=== PATIENT | male | born 1945 | race Caucasian/White ===

== ENCOUNTER 2016-12-16 15:00 | Inpatient (IN) | payer MEDICARE, OTHER ==
[2016-12-16] VITALS (9 sets, daily range): BP systolic 147–216; BP diastolic 63–92; PULSE 53–66; RESP 17–20; Ht 175.3 cm; Wt 89.0 kg
[~2016-12-16] VITALS: Ht 175.3 cm; Wt 89.0 kg
[~2016-12-16 15:00] MED LIST: AMIO200T; ASPI-535; CLON-379; CRES10; FENO145T25; FURO20TA3; GLIM4TAB55; HUMALOG; HUMULIN 70/30; IRBE1TAB; METF-164; POTA8TAB2; [UNRECOGNIZED DRUG - CODE]
[2016-12-16] MEDS ORDERED: MANNITOL 25% 50 ML INJ IV* ONE (17:30)
[2016-12-16 17:47] LABS: POTASSIUM 4.4 mmol/L (3.5-5.1)
[2016-12-16 17:50] LABS: CREATININE 5.91 mg/dl (0.61-1.24)
[2016-12-16 17:51] LABS: CALCIUM 8.6 mg/dl (8.4-10.2)
[2016-12-16] MEDS ORDERED: GLUCOSE GEL 15 GRAM TUBE PO PRN ×2 (19:00)
[2016-12-16] MEDS ORDERED: GLUCAGON 1 MG INJ IM PRN (19:00)
[2016-12-16] MEDS ORDERED: GLUCOSE GEL 15 GRAM TUBE BUCCAL PRN (19:00)
[2016-12-16] MEDS ORDERED: DEXTROSE 50% 50 ML SYRINGE IV PRN ×2 (19:00)
[2016-12-16 19:03] LABS: ADD SCAN DIFF NO; HAAIG REFLEX REFLEX FILED
[2016-12-16 19:53] LABS: INR 1.06; PROTIME 13.8 Sec (12.2-14.2); PT RATIO 1.1
[2016-12-16 19:54] LABS: PARTIAL THROMBOPLASTIN TIME 24.1 Sec (25.0-35.0)
[2016-12-16 20:11] LABS: HEPATITIS B CORE ANTIBODY NEGATIVE (NEGATIVE)
[2016-12-16] MEDS: INSULIN ASPART [NOVOLOG] 3 ML PEN SC SCH (20:35)
--- NOTE | 2016-12-16 20:43 | QN ---
Documentation Comment [id number] REINIER GIBSON MD December 16, 2016 20:43
[2016-12-16] MEDS ORDERED: hydrALAzine 20 MG INJ IV PRN (21:00)
[2016-12-16 21:38] LABS: BASOPHILS % 0.6 % (0.0-2.0); EOSINOPHILS # 0.2 10^3/ul (0.0-0.5); EOSINOPHILS % 2.7 % (0.0-7.0); HEMATOCRIT 23.7 % (42.0-52.0); HEMOGLOBIN 7.6 g/dl (14.0-18.0); LYMPHOCYTES # 1.6 10^3/ul (0.8-2.9); LYMPHOCYTES % 24.1 % (15.0-51.0); MEAN CORPUSCULAR HEMOGLOBIN 29.8 pg (29.0-33.0); MEAN CORPUSCULAR HGB CONC 32.1 g/dl (32.0-37.0); MEAN CORPUSCULAR VOLUME 92.9 fl (82.0-101.0); MEAN PLATELET VOLUME 12.3 fl (7.4-10.4); MONOCYTE # 0.4 10^3/ul (0.3-0.9); MONOCYTES % 6.2 % (0.0-11.0); NEUTROPHIL # 4.4 10^3/ul (1.6-7.5); NEUTROPHILS % 65.9 % (39.0-77.0); PLATELET COUNT 205 10^3/UL (140-415); RED BLOOD COUNT 2.55 10^6/ul (4.70-6.10); RED CELL DISTRIBUTION WIDTH 13.2 % (11.5-14.5); WHITE BLOOD COUNT 6.7 10^3/ul (4.8-10.8)
[2016-12-16] MEDS: ASPIRIN (EC) 81 MG TAB PO SCH (23:48)
[2016-12-16] MEDS: ATORVASTATIN 40 MG TAB PO SCH (23:48)
[2016-12-16] MEDS: FERROUS SULFATE (EC) 325 MG TAB PO SCH (23:48)
[2016-12-16] MEDS: NIFEdipine (XL) 60 MG TAB PO SCH (23:53)
[2016-12-17] VITALS (14 sets, daily range): BP systolic 104–190; BP diastolic 56–90; PULSE 58–68; RESP 18
[2016-12-17] MEDS: ACCU-CHEK XX SCH (02:00)
--- NOTE | 2016-12-17 04:58 | HP ---
DATE OF ADMISSION: 12/16/2016 HISTORY OF PRESENT ILLNESS: Mr. Martell is a 71-year-old male, who has a history of ESRD, history of hypertension, history of gastroenteritis, history of Campylobacter jejuni, history of ATN, history of CAD, history of CABG, history of diabetes mellitus, history of anemia, history of cardiac arrhythmia, AV fistula in the left upper extremity. He presented with uremic symptoms; weakness, dizziness, nausea, poor appetite, weight loss, and the fistula has also matured, and will be started on hemodialysis. PAST MEDICAL HISTORY: As mentioned above. Briefly, ESRD, hypertension, diabetes mellitus, AV fistula placement, history of coronary artery bypass graft , history of cardiac arrhythmia. ALLERGY HISTORY: NEGATIVE. FAMILY HISTORY: Negative. SOCIAL HISTORY: Negative at this point. MEDICATION HISTORY: 1. bp meds 2. Amiodarone. 3. Aspirin. 4. Clonidine. 5. Fenofibrate. 6. Lasix. 7. Glipizide. 8. Avalide. 9. Metformin; the patient does not take metformin. 10. bicitra. 11. Humalog. REVIEW OF SYSTEMS: HEENT: Unremarkable. RESPIRATORY: zuniga shortness of breath, + dyspnea with exertion. ABDOMEN: Unremarkable, except nausea. EXTREMITIES: edema hx. CENTRAL NERVOUS SYSTEM: Unremarkable. PHYSICAL EXAMINATION: GENERAL: The patient is awake, alert. VITAL SIGNS: Stable. HEAD: Atraumatic, normocephalic. Pupils equal, reactive to light. NECK: Supple, no JVD. LUNGS: Clear. CARDIOVASCULAR: S1, S2 normal. sm+. ABDOMEN: Soft. Bowel sounds positive. EXTREMITIES: There is no cyanosis, clubbing, edema. CENTRAL NERVOUS SYSTEM: The patient is awake, alert, with no focal deficit. LABORATORY DATA: Sodium 139, potassium 4.4, BUN of 70, creatinine . The patient's outside creatinine is 6.7. IMPRESSION: 1. End-stage renal disease V. 2. Uremic symptoms. 3. Weight loss. 4. Hypertension. 5. Diabetes mellitus. 6. The patient has a history of anemia. 7. Atherosclerotic heart disease. 8. Dyslipidemia. 9. History of cardiac arrhythmia. 4. History of coronary artery bypass graft. PLAN: To continue a renal diet, hemodialysis with mannitol. Check laboratory data and hepatitis panel. Orders were done. Dictated By: REINIER GIBSON MD BS/NTS Conf#: [id number] [facility]#: [id number] MTDD
[2016-12-17 05:35] LABS: POTASSIUM 3.7 mmol/L (3.5-5.1)
[2016-12-17 05:37] LABS: CREATININE 4.73 mg/dl (0.61-1.24)
[2016-12-17 05:38] LABS: CALCIUM 8.8 mg/dl (8.4-10.2)
[2016-12-17] MEDS ORDERED: GLIMEPIRIDE 4 MG TAB PO SCH (07:30)
[2016-12-17] MEDS: INSULIN ASPART [NOVOLOG] 3 ML PEN SC SCH ×4 (08:00→21:00)
[2016-12-17] MEDS: FENOFIBRATE 145 MG TAB PO SCH (08:51)
[2016-12-17] MEDS: FERROUS SULFATE (EC) 325 MG TAB PO SCH ×2 (08:52→20:50)
[2016-12-17] MEDS: CHOLECALCIFEROL 1,000 UNIT TAB PO SCH (08:52)
[2016-12-17] MEDS: ASPIRIN (EC) 81 MG TAB PO SCH ×2 (08:52→20:50)
[2016-12-17] MEDS: HYDROCHLOROTHIAZIDE 12.5 MG CAP PO SCH (08:52)
--- NOTE | 2016-12-17 08:56 | RADRPT ---
PROCEDURE: XR Chest. CLINICAL INDICATION: Pain TECHNIQUE: An AP view of the chest was obtained. COMPARISON: Chest x-ray dated 08/05/2009 FINDINGS: Lung volumes are low. There is prominence of the interstitial markings. No pleural effusion or pn eumothorax is seen. The cardiomediastinal silhouette is severely enlarged . Calcifications are seen within the aortic arch. There are post cardiac surgery changes with sternotomy wires and mediastina l clips. The osseous structures demonstrate senescent changes. IMPRESSION: 1. Mild prominence of the interstitial markings, may reflect mild underlying interstitial edema or chronic lung changes. No significant interval change. 2. Severe cardiomegaly and aortic atherosclerosis. RPTAT: HH .Rachelle Bradshaw MD, MD Date Time Electronically viewed and signed by .Rachelle Bradshaw MD, on 12/17/2016 08:56 .G/
[2016-12-17] MEDS ORDERED: MANNITOL 25% 50 ML INJ IV* ONE (09:00)
[2016-12-17] MEDS: LOSARTAN 50 MG TAB PO SCH (09:50)
[2016-12-17] MEDS: AMIODARONE 200 MG TAB PO SCH (09:51)
[2016-12-17] MEDS: NIFEdipine (XL) 60 MG TAB PO SCH ×2 (09:51→20:50)
[2016-12-17] MEDS: MUPIROCIN 2% 15 GM CR TOP SCH (12:11)
--- NOTE | 2016-12-17 17:51 | PN ---
Date/Time of Note Date/Time of Note DATE: 12/17/16 TIME: 17:50 Assessment/Plan VTE Prophylaxis VTE Prophylaxis Intervention: other Lines/Catheters [facility] Saline Lock Urinary Cath still in place: No Assessment/Plan Chief Complaint/Hosp Course IMPRESSION: 1. End-stage renal disease V. 2. Uremic symptoms. 3. Weight loss. 4. Hypertension. 5. Diabetes mellitus. 6. The patient has a history of anemia. 7. Atherosclerotic heart disease. 8. Dyslipidemia. 9. History of cardiac arrhythmia. 4. History of coronary artery bypass graft. plan hd Problems: Subjective 24 Hr Interval Summary Cardiovascular: no complaints Gastrointestinal: no complaints Genitourinary: no complaints Exam/Review of Systems Vital Signs Vitals Vital Signs Date Time Temp Pulse Resp B/P Pulse Ox O2 Delivery O2 Flow Rate FiO2 12/17/16 14:56 148/65 12/17/16 11:15 61 15 12/17/16 08:14 97.9 99 12/16/16 17:35 Room Air Intake and Output 12/16/16 12/16/16 12/17/16 15:00 23:00 07:00 Intake Total 500 ml 950 ml Output Total 500 ml 700 ml Balance 0 ml 250 ml Exam Neck: supple Respiratory: clear to auscultation Cardiovascular: regular rate and rhythm Gastrointestinal: soft Musculoskeletal: nl extremities to inspection Extremities: normal pulses Results Result Diagram: 12/16/16 1720 12/17/16 0445 Results 24 hrs Laboratory Tests Test 12/16/16 19:10 12/16/16 20:34 12/17/16 04:45 12/17/16 07:41 Prothrombin Time 13.8 Prothrombin Time Ratio 1.1 INR International Normalized Ratio 1.06 Activated Partial Thromboplast Time 24.1 L Bedside Glucose 113 110 Sodium Level 139 Potassium Level 3.7 Chloride Level 102 Carbon Dioxide Level 28 Anion Gap 13 Blood Urea Nitrogen 51 H Creatinine 4.73 #H Glucose Level 107 Calcium Level 8.8 Test 12/17/16 11:41 12/17/16 17:16 Bedside Glucose 170 173 Medications Medications Current Medications Diagnostic Test (Pha) (Accu-Chek) 1 ea 02 XX ; Start 12/17/16 at 02:00 Miscellaneous Information 1 ea NOTE XX ; Start 12/16/16 at 19:00 Glucose (Glutose) 15 gm Q15M PRN PO DECREASED GLUCOSE; Start 12/16/16 at 19:00 Glucose (Glutose) 22.5 gm Q15M PRN PO DECREASED GLUCOSE; Start 12/16/16 at 19:00 Dextrose (D50w Syringe) 25 ml Q15M PRN IV DECREASED GLUCOSE; Start 12/16/16 at 19:00 Dextrose (D50w Syringe) 50 ml Q15M PRN IV DECREASED GLUCOSE; Start 12/16/16 at 19:00 Glucagon (Glucagen) 1 mg Q15M PRN IM DECREASED GLUCOSE; Start 12/16/16 at 19:00 Glucose (Glutose) 15 gm Q15M PRN BUCCAL DECREASED GLUCOSE; Start 12/16/16 at 19: 00 Hydralazine HCl (Apresoline) 10 mg Q6H PRN IV ELEVATED BLOOD PRESSURE Last administered on 12/16/16 21:26; Admin Dose 10 MG; Start 12/16/16 at 21:00 Fenofibrate (Tricor) 145 mg DAILY PO Last administered on 12/17/16 08:51; Admin Dose 145 MG; Start 12/17/16 at 09:00 Ferrous Sulfate (Ferrous Sulfate (Ec)) 325 mg BID PO Last administered on 08:52; Admin Dose 325 MG; Start 12/16/16 at 23:00 Cholecalciferol (Vitamin D) 1,000 unit DAILY PO Last administered on 12/17/16 08:52; Admin Dose 1,000 UNIT; Start 12/17/16 at 09:00 Losartan Potassium (Cozaar) 100 mg DAILY PO Last administered on 12/17/16 09:50 ; Admin Dose 100 MG; Start 12/17/16 at 09:00 Doxazosin Mesylate (Cardura) 4 mg DAILY@21 PO ; Start 12/17/16 at 21:00 Hydrochlorothiazide (Hydrochlorothiazide) 12.5 mg DAILY PO Last administered on 12/17/16 08:52; Admin Dose 12.5 MG; Start 12/17/16 at 09:00 Nifedipine (Procardia Xl) 60 mg BID PO Last administered on 12/17/16 09:51; Admin Dose 60 MG; Start 12/16/16 at 23:30 Carvedilol (Coreg) 12.5 mg BID PO Last administered on 12/17/16 09:50; Admin Dose 12.5 MG; Start 12/16/16 at 23:00 Amiodarone HCl (Cordarone) 200 mg DAILY PO Last administered on 12/17/16 09:51 ; Admin Dose 200 MG; Start 12/17/16 at 09:00 Clonidine (Catapres) 0.2 mg TID PO Last administered on 12/17/16 08:53; Admin Dose 0.2 MG; Start 12/16/16 at 23:00 Aspirin (Halfprin) 81 mg BID PO Last administered on 12/17/16 08:52; Admin Dose 81 MG; Start 12/16/16 at 23:00 Atorvastatin Calcium (Lipitor) 40 mg DAILY@21 PO Last administered on 12/16/16 23:48; Admin Dose 40 MG; Start 12/16/16 at 23:30 Insulin Glargine (Lantus) 20 unit DAILY@20 SC ; Start 12/17/16 at 20:00 Modafinil (Provigil) 200 mg DAILY PO ; Start 12/18/16 at 09:00 Mupirocin (Bactroban) 1 applic DAILY TOP Last administered on 12/17/16 12:11; Admin Dose 1 APPLIC; Start 12/17/16 at 09:00 REINIER GIBSON MD December 17, 2016 17:51
[2016-12-17] MEDS ORDERED: EPOETIN 4000 UNITS/1 ML INJ (ESRD) SC SCH (18:00)
[2016-12-17] MEDS ORDERED: INSULIN GLARGINE [LANtus] 3 ML PEN SC SCH (20:00)
[2016-12-17] MEDS: ATORVASTATIN 40 MG TAB PO SCH (20:50)
[2016-12-17] MEDS ORDERED: DOXAZOSIN 4 MG TAB PO SCH (21:00)
[2016-12-18] VITALS (8 sets, daily range): BP systolic 121–169; BP diastolic 50–74; PULSE 60–76; RESP 17
[2016-12-18] MEDS: ACCU-CHEK XX SCH (02:00)
[2016-12-18] MEDS: FERROUS SULFATE (EC) 325 MG TAB PO SCH (08:16)
[2016-12-18] MEDS: ASPIRIN (EC) 81 MG TAB PO SCH (08:16)
[2016-12-18] MEDS: CHOLECALCIFEROL 1,000 UNIT TAB PO SCH (08:16)
[2016-12-18] MEDS: INSULIN ASPART [NOVOLOG] 3 ML PEN SC SCH ×3 (08:19→16:34)
[2016-12-18] MEDS: FENOFIBRATE 145 MG TAB PO SCH (08:19)
[2016-12-18] MEDS: AMIODARONE 200 MG TAB PO SCH (09:00)
[2016-12-18] MEDS: MUPIROCIN 2% 15 GM CR TOP SCH (09:00)
[2016-12-18] MEDS: HYDROCHLOROTHIAZIDE 12.5 MG CAP PO SCH (09:00)
[2016-12-18] MEDS: NIFEdipine (XL) 60 MG TAB PO SCH (09:00)
[2016-12-18] MEDS ORDERED: MODAFINIL 200 MG TAB PO SCH (09:00)
[2016-12-18] MEDS: LOSARTAN 50 MG TAB PO SCH (09:00)
--- NOTE | 2016-12-18 11:53 | PN ---
Date/Time of Note Date/Time of Note DATE: 12/18/16 TIME: 11:51 Assessment/Plan VTE Prophylaxis VTE Prophylaxis Intervention: ambulation Lines/Catheters [facility] Saline Lock Urinary Cath still in place: No Assessment/Plan Chief Complaint/Hosp Course 1. End-stage renal disease V, HD dependent 2. Uremic symptoms. 3. Weight loss. 4. Hypertension, controlled. 5. Diabetes mellitus. 6. The patient has a history of anemia. 7. Atherosclerotic heart disease. 8. Dyslipidemia. 9. History of cardiac arrhythmia. 4. History of coronary artery bypass graft. Problems: Assessment/Plan 2. HD 2. Optimization kidney function Subjective 24 Hr Interval Summary Constitutional: no complaints Exam/Review of Systems Vital Signs Vitals Vital Signs Date Time Temp Pulse Resp B/P Pulse Ox O2 Delivery O2 Flow Rate FiO2 12/18/16 07:56 98.1 59 17 169/74 99 12/16/16 17:35 Room Air Intake and Output 12/17/16 12/17/16 12/18/16 15:00 23:00 07:00 Intake Total 1200 ml 1000 ml 580 ml Output Total 1200 ml 900 ml Balance 0 ml 100 ml 580 ml Exam Constitutional: alert, oriented Psych: no complaints Respiratory: clear to auscultation Cardiovascular: regular rate and rhythm Gastrointestinal: soft Genitourinary - Male: nl penis Results Result Diagram: 12/16/16 1720 12/17/16 0445 Results 24 hrs Laboratory Tests Test 12/17/16 17:16 12/17/16 20:48 12/18/16 08:13 12/18/16 11:40 Bedside Glucose 173 163 144 139 Medications Medications Current Medications Diagnostic Test (Pha) (Accu-Chek) 1 ea 02 XX ; Start 12/17/16 at 02:00 Miscellaneous Information 1 ea NOTE XX ; Start 12/16/16 at 19:00 Glucose (Glutose) 15 gm Q15M PRN PO DECREASED GLUCOSE; Start 12/16/16 at 19:00 Glucose (Glutose) 22.5 gm Q15M PRN PO DECREASED GLUCOSE; Start 12/16/16 at 19:00 Dextrose (D50w Syringe) 25 ml Q15M PRN IV DECREASED GLUCOSE; Start 12/16/16 at 19:00 Dextrose (D50w Syringe) 50 ml Q15M PRN IV DECREASED GLUCOSE; Start 12/16/16 at 19:00 Glucagon (Glucagen) 1 mg Q15M PRN IM DECREASED GLUCOSE; Start 12/16/16 at 19:00 Glucose (Glutose) 15 gm Q15M PRN BUCCAL DECREASED GLUCOSE; Start 12/16/16 at 19: 00 Hydralazine HCl (Apresoline) 10 mg Q6H PRN IV ELEVATED BLOOD PRESSURE Last administered on 12/16/16 21:26; Admin Dose 10 MG; Start 12/16/16 at 21:00 Fenofibrate (Tricor) 145 mg DAILY PO Last administered on 12/18/16 08:19; Admin Dose 145 MG; Start 12/17/16 at 09:00 Ferrous Sulfate (Ferrous Sulfate (Ec)) 325 mg BID PO Last administered on 08:16; Admin Dose 325 MG; Start 12/16/16 at 23:00 Cholecalciferol (Vitamin D) 1,000 unit DAILY PO Last administered on 12/18/16 08:16; Admin Dose 1,000 UNIT; Start 12/17/16 at 09:00 Losartan Potassium (Cozaar) 100 mg DAILY PO Last administered on 12/17/16 09:50 ; Admin Dose 100 MG; Start 12/17/16 at 09:00 Doxazosin Mesylate (Cardura) 4 mg DAILY@21 PO Last administered on 12/17/16 20: 56; Admin Dose 4 MG; Start 12/17/16 at 21:00 Hydrochlorothiazide (Hydrochlorothiazide) 12.5 mg DAILY PO Last administered on 12/17/16 08:52; Admin Dose 12.5 MG; Start 12/17/16 at 09:00 Nifedipine (Procardia Xl) 60 mg BID PO Last administered on 12/17/16 20:50; Admin Dose 60 MG; Start 12/16/16 at 23:30 Carvedilol (Coreg) 12.5 mg BID PO Last administered on 12/17/16 20:51; Admin Dose 12.5 MG; Start 12/16/16 at 23:00 Amiodarone HCl (Cordarone) 200 mg DAILY PO Last administered on 12/17/16 09:51 ; Admin Dose 200 MG; Start 12/17/16 at 09:00 Clonidine (Catapres) 0.2 mg TID PO Last administered on 12/18/16 08:16; Admin Dose 0.2 MG; Start 12/16/16 at 23:00 Aspirin (Halfprin) 81 mg BID PO Last administered on 12/18/16 08:16; Admin Dose 81 MG; Start 12/16/16 at 23:00 Atorvastatin Calcium (Lipitor) 40 mg DAILY@21 PO Last administered on 12/17/16 20:50; Admin Dose 40 MG; Start 12/16/16 at 23:30 Insulin Glargine (Lantus) 20 unit DAILY@20 SC Last administered on 12/17/16 20: 54; Admin Dose 20 UNIT; Start 12/17/16 at 20:00 Modafinil (Provigil) 200 mg DAILY PO ; Start 12/18/16 at 09:00 Mupirocin (Bactroban) 1 applic DAILY TOP Last administered on 12/17/16 12:11; Admin Dose 1 APPLIC; Start 12/17/16 at 09:00 IVONNE BHAT December 18, 2016 11:53
--- NOTE | 2016-12-18 14:55 | PDOCDIS ---
Discharge Instructions CONDITION Patient Condition: Stable HOME CARE INSTRUCTIONS: Special Diet: 1800 2gm Na,RENAL ACTIVITY: Activity Restrictions: Slowly Increase Activity FOLLOW UP/APPOINTMENTS Appointments F/U DR GIBSON 2 WKS SEE PCP 2 WK PT TO GO TO [facility] NEXT WK ON /REINIER LOVE MD December 18, 2016 14:55
[2016-12-18] MEDS ORDERED: NIFE60TA7 PO (14:59)
[2016-12-18] MEDS ORDERED: CARV12.579 PO (14:59)
[2016-12-18] MEDS ORDERED: DOXA4TAB2 PO (14:59)
[2016-12-18] MEDS ORDERED: ATOR40TA68 PO (14:59)
[2016-12-18] MEDS ORDERED: CHOL100062 PO (14:59)
[2016-12-18] MEDS ORDERED: CLON0.2T12 PO (14:59)
--- NOTE | 2016-12-20 16:30 | QN ---
Documentation Comment [id number] REINIER GIBSON MD December 20, 2016 16:30
--- NOTE | 2016-12-20 19:29 | DS ---
DATE OF ADMISSION: 12/16/2016 DATE OF DISCHARGE: 12/18/2016 HOSPITAL COURSE: The patient was admitted with uremic symptoms, has ESRD stage V, hypertension, diabetes mellitus, AV fistula left upper extremity. Hemodialysis was started during this hospitalization. The patient underwent daily dialysis for 3 days. Also hepatitis panel was negative. The patient was accepted to [facility] [place] for Wednesday, , Wednesday. DISCHARGE DIAGNOSES: Include: 1. The patient has endstage renal disease, uremic symptoms. 2. Weight loss. 3. Hypertension. 4. Diabetes mellitus. 5. History of anemia. 6. Atherosclerotic heart disease. 7. Dyslipidemia. 8. History of cardiac arrhythmia. 9. History of coronary artery bypass graft. 10. Left upper extremity arteriovenous fistula placement in the past. DISCHARGE MEDICATIONS: 1. The patient to continue home medication. 2. The patient to continue on Lipitor. 3. Coreg. 4. Vitamin D. 5. Clonidine. 6. Doxazosin. 7. Nifedipine. 8. BP MEDS 9. Nephro-Alex. 10. Epogen as an outpatient. 11. Sliding scale. DISCHARGE CONDITION: The patient is stable at the time of discharge. Dictated By: REINIER GIBSON MD BS/NTS Conf#: [id number] DID#: [id number] MTDJeffry
== END 2016-12-18 18:48 | disposition home or self-care (01) | DRG 682 ==
LOC: PP2 16:51
PROVIDERS: ADMIT Internal Medicine Nephrology; ATTEND Internal Medicine Nephrology
PROC: 5A1D00Z (ICD-10-PCS; principal; 2016-12-16)
DX: I12.0 Hypertensive chronic kidney disease with stage 5 chronic kidney disease or end stage renal disease (principal); N18.6 End stage renal disease; E11.22 Type 2 diabetes mellitus with diabetic chronic kidney disease; D64.9 Anemia, unspecified; I25.10 Atherosclerotic heart disease of native coronary artery without angina pectoris; N23 Unspecified renal colic; E78.5 Hyperlipidemia, unspecified; Z79.4 Long term (current) use of insulin; Z79.82 Long term (current) use of aspirin; Z99.2 Dependence on renal dialysis; Z95.1 Presence of aortocoronary bypass graft
CPT/HCPCS: 71010; 80048; 82962; 85025; 85610; 85730; 86704; 86709; 86803; 87340; 90935; J0360; J0886; J1815; J2150

== ENCOUNTER 2017-01-01 14:30 | Observation (INO) | payer MEDICARE, OTHER ==
[~2017-01-01] VITALS: Ht 172.7 cm; Wt 90.0 kg
[~2017-01-01 14:30] MED LIST changes: +ATOR40TA68 PO; +CARV12.579 PO; +CHOL100062 PO; +CLON0.2T12 PO; +DOXA4TAB2 PO; -FENO145T25; +FENO145T25 PO; -GLIM4TAB55; +GLIM4TAB55 PO; -METF-164; +NIFE60TA7 PO; -POTA8TAB2
[2017-01-01] MEDS ORDERED: FOLI-49 PO (15:47)
[2017-01-01] MEDS ORDERED: LANT3I SC (15:48)
[2017-01-01] MEDS ORDERED: CITR473S3 PO (15:49)
[2017-01-01] MEDS ORDERED: FER325 PO (15:49)
[2017-01-01] MEDS ORDERED: IBUP800T25 PO (15:51)
[2017-01-01] MEDS ORDERED: [UNRECOGNIZED DRUG - CODE] PO (15:52)
[2017-01-01] MEDS ORDERED: INSU100V3 IJ (15:55)
[2017-01-01 15:59] LABS: ADD SCAN DIFF NO
[2017-01-01 16:02] LABS: ABNORMAL IP MESSAGE 1; HEMATOCRIT 21.4 % (42.0-52.0); MEAN CORPUSCULAR HGB CONC 31.3 g/dl (32.0-37.0); MEAN PLATELET VOLUME 11.3 fl (7.4-10.4); PLATELET COUNT 211 10^3/UL (140-415); RED BLOOD COUNT 2.23 10^6/ul (4.70-6.10); RED CELL DISTRIBUTION WIDTH 14.5 % (11.5-14.5); WHITE BLOOD COUNT 8.2 10^3/ul (4.8-10.8)
[2017-01-01 16:09] LABS: HEMOGLOBIN 6.7 g/dl (14.0-18.0)
--- NOTE | 2017-01-01 16:19 | ERA ---
ER Documentation Chief Complaint Date/Time DATE: 01/01/17 TIME: 16:13 Chief Complaint LAB WORK POSSIBLE LOW H/H & TEMP DIALYSIS CATHETER PLACEMENT HPI 71-year-old male history of end-stage renal disease on dialysis Wednesday who presents for multiple issues. The first is that he had routine blood work that showed a hemoglobin of 6.2. The patient does not describe any shortness of breath weakness or malaise, no hematemesis or melena. The second is that the patient's left upper extremity AV fistula has significant bruising in the dialysis center is concerned that they cannot use the fistula any further. He was sent for admission to have a permacath placement by vascular surgery or interventional radiology. The patient otherwise has no complaints. ROS All systems reviewed and are negative except as per history of present illness. Medications Home Meds Active Scripts Cholecalciferol* (Vitamin D3*) 1,000 Unit Tablet, 1000 UNIT PO DAILY for 28 Days , TAB Prov:DONNY GIBSON MD 12/18/16 Nifedipine (Afeditab CR) 60 Mg Tablet.sa, 60 MG PO BID for 28 Days Prov:DONNY GIBSON MD 12/18/16 Doxazosin Mesylate* (Cardura*) 4 Mg Tablet, 4 MG PO DAILY@21 for 10 Days, TAB Prov:DONNY GIBSON MD 12/18/16 Clonidine Hcl* (Catapres*) 0.2 Mg Tablet, 0.2 MG PO TID for 28 Days, TAB Prov:DONNY GIBSON MD 12/18/16 Carvedilol* (Carvedilol*) 12.5 Mg Tablet, 12.5 MG PO BID for 14 Days, TAB Prov:DONNY GIBSON MD 12/18/16 Atorvastatin* (Atorvastatin*) 40 Mg Tablet, 40 MG PO DAILY@21 for 14 Days, TAB Prov:DONNY GIBSON MD 12/18/16 Reported Medications Insulin Regular, Human (Humulin R) 100 Unit/1 Ml Vial, 0 IJ SLIDING SCALES, VIAL 01/01/17 Folic Acid/Vitamin B Comp W-C (Full Spectrum B With Vit C Tab) 0.8 Mg Tablet, 0.8 MG PO DAILY, TAB 01/01/17 Ibuprofen* (Ibuprofen*) 800 Mg Tab, 800 MG PO BID Y for PAIN, TAB 01/01/17 Ferrous Sulfate* (Ferrous Sulfate*) 325 Mg Tabec, 325 MG PO BID, TAB 01/01/17 Citric Acid/Sodium Citrate (Cytra-2 Oral Solution) 473 Ml Solution, 473 ML PO DAILY 01/01/17 Insulin Glargine* (Lantus*) 100 Unit/Ml Soln, 20 UNIT SC QHS, #1 VIAL 01/01/17 Folic Acid* (Folic Acid*) 1 Mg Tablet, 1 MG PO DAILY, TAB 01/01/17 Glimepiride* (Amaryl*) 4 Mg Tablet, 4 MG PO BID 08/05/09 Fenofibrate Nanocrystallized* (Tricor*) 145 Mg Tablet, 145 MG PO DAILY 08/05/09 Discontinued Reported Medications [Humulin 70/30] No Conflict Check 08/05/09 [Humalog] No Conflict Check 08/05/09 Aspirin Ec (Aspir 81) 81 Mg Tablet. 08/05/09 Clonidine Hcl* (Clonidine Hcl*) 0.1 Mg Tab 08/05/09 Amiodarone Hcl* (Amiodarone Hcl*) 200 Mg Tablet 08/05/09 Irbesartan/Hydrochlorothiazide (Avalide) 1 Tab Tablet 08/05/09 Rosuvastatin Calcium* (Crestor*) 10 Mg Tablet 08/05/09 Aliskiren Hemifumarate* (Tekturna*) 300 Mg Tablet 08/05/09 Furosemide* (Furosemide*) 20 Mg Tablet 08/05/09 Allergies Allergies: Coded Allergies: No Known Allergy (Verified , 01/01/17) PMhx/Soc History of Surgery: Yes (OPEN HEART SURGERY 1998) Anesthesia Reaction: No Hx Neurological Disorder: No Hx Respiratory Disorders: No Hx Cardiac Disorders: Yes (CAD ) Hx Psychiatric Problems: No Hx Miscellaneous Medical Probl: No Hx Alcohol Use: Yes Hx Substance Use: No Hx Tobacco Use: Yes Smoking Status: Unknown if ever smoked FmHx Family History: No diabetes Physical Exam Vitals Vital Signs Date Time Temp Pulse Resp B/P Pulse Ox O2 Delivery O2 Flow Rate FiO2 01/01/17 14:56 99.6 64 20 187/72 99 Physical Exam General: Well developed, well nourished, no acute distress Head: Normocephalic, atraumatic. Eyes: Pupils equally reactive, EOM intact ENT: Moist mucous membranes Neck: Supple, no lymphadenopathy Respiratory: Lungs clear bilaterally, no distress Cardiovascular: RRR, no murmurs, rubs, or gallops Abdominal: Soft, non-tender, non-distended, no peritoneal signs : Deferred MSK: No edema, no unilateral swelling, 5/5 strength, left upper extremity AV fistula with good bruit and thrill Neurologic: Alert and oriented, moving all extremities, normal speech, no focal weakness, no cerebellar signs Skin: Multiple ecchymoses noted to the left upper extremity AV fistula Psych: Normal mood Result Diagram: 01/01/17 1555 01/01/17 1555 Results 24 hrs Laboratory Tests Test 01/01/17 15:55 White Blood Count 8.210^3/ul Red Blood Count 2.2310^6/ul Hemoglobin 6.7g/dl Hematocrit 21.4% Mean Corpuscular Volume 96.0fl Mean Corpuscular Hemoglobin 30.0pg Mean Corpuscular Hemoglobin Concent 31.3g/dl Red Cell Distribution Width 14.5% Platelet Count 19557^3/UL Mean Platelet Volume 11.3fl Prothrombin Time 13.2Sec Prothrombin Time Ratio 1.0 INR International Normalized Ratio 1.00 Activated Partial Thromboplast Time 24.4Sec Sodium Level 137mmol/L Potassium Level 4.3mmol/L Chloride Level 102mmol/L Carbon Dioxide Level 24mmol/L Anion Gap 15 Blood Urea Nitrogen 32mg/dl Creatinine 4.06mg/dl Glucose Level 181mg/dl Calcium Level 8.5mg/dl Current Medications Medications (Trade) Dose Ordered Sig/Rhea Route PRN Reason Start Time Stop Time Status Last Admin Dose Admin Sodium Chloride (NS) 250 ml @ 0 mls/hr Q0M ONCE IV 01/01/17 16:30 01/01/17 16:31 DC Ondansetron HCl (Zofran Inj) 4 mg BRIDGE ORDER PRN IV NAUSEA AND/OR VOMITING 01/01/17 16:30 01/02/17 16:29 Acetaminophen (Tylenol Tab) 650 mg ER BRIDGE PRN PO MILD PAIN/FEVER 01/01/17 16:30 01/02/17 16:29 Procedures/MDM EKG, MONITORS, & DIAGNOSTIC IMAGING: EKG: I reviewed and interpreted a 12-lead EKG. Rhythm: Normal sinus rhythm Ectopy: None Intervals: No abnormalities ST segments: No elevations or depressions T waves: No contiguous inversions LAB INTERPRETATION: Hemoglobin of 6.7, no hyperkalemia MEDICAL DECISION MAKING: The patient has evidence of anemia likely secondary to end-stage renal disease. The patient will benefit from transfusion as the benefits outweigh the risks. I discussed the risks, benefits, alternatives with the patient and family member. The patient is agreeable and will have a blood transfusion. 2 units of packed red blood cells have been written for. The patient will be admitted for management of anemia. He will also require a PermCath placement this can be done on a nonemergent basis as the patient has no evidence of volume overload or hyperkalemia and had dialysis yesterday. ER COURSE: Patient was typed and crossmatched for 2 units of packed red blood cells. Consent was signed and placed in the chart. I kept the patient and/or family informed of laboratory and diagnostic imaging results throughout the emergency room course. DISPOSITION PLAN: Medical surgical admission for management of symptomatic anemia CONSULTATION: Accepting care team and consultations: I discussed the current laboratory data, diagnostic imaging and emergency care provided. Admitting team: Dr. Donny Gibson Admitting team indication: Insurance directed Consulting services: Vascular surgeon Dr. Walker has been paged Departure Diagnosis: Primary Impression: Anemia Qualified Code: D64.9 - Anemia, unspecified type Additional Impressions: End stage renal disease on dialysis Dialysis AV fistula malfunction Qualified Code: T82.590A - Dialysis AV fistula malfunction, initial encounter Condition: Stable MARIIA GRECO MD January 01, 2017 16:19
[2017-01-01 16:23] LABS: PARTIAL THROMBOPLASTIN TIME 24.4 Sec (25.0-35.0); PROTIME 13.2 Sec (12.2-14.2)
[2017-01-01 16:25] LABS: POTASSIUM 4.3 mmol/L (3.5-5.1)
[2017-01-01 16:26] LABS: CALCIUM 8.5 mg/dl (8.4-10.2); CREATININE 4.06 mg/dl (0.61-1.24)
[2017-01-01] MEDS ORDERED: ONDANSETRON 4 MG INJ IV PRN (16:30)
[2017-01-01] MEDS ORDERED: SOD CHLORIDE 0.9% 250 ML IV ONE (16:30)
[2017-01-01] MEDS ORDERED: ACETAMINOPHEN 325 MG TAB PO PRN (16:30)
[2017-01-01 17:51] LABS: EOSINOPHILS # 0.2 10^3/ul (0.0-0.5); LYMPHOCYTES # 2.3 10^3/ul (0.8-2.9); MONOCYTE # 0.2 10^3/ul (0.3-0.9); NEUTROPHIL # 5.5 10^3/ul (1.6-7.5)
[2017-01-01 18:03] VITALS: Ht 172.7 cm; Wt 90.0 kg
--- NOTE | 2017-01-01 18:09 | QN ---
Documentation Comment [id number] REINIER GIBSON MD January 01, 2017 18:09
[2017-01-01] MEDS ORDERED: GLUCAGON 1 MG INJ IM PRN (18:30)
[2017-01-01] MEDS ORDERED: GLUCOSE GEL 15 GRAM TUBE PO PRN ×2 (18:30)
[2017-01-01] MEDS ORDERED: DEXTROSE 50% 50 ML SYRINGE IV PRN ×2 (18:30)
[2017-01-01] MEDS ORDERED: GLUCOSE GEL 15 GRAM TUBE BUCCAL PRN (18:30)
[2017-01-01 18:36] VITALS: BP 211/85; RESP 18
[2017-01-01 19:00] VITALS: BP 200/87; PULSE 65; RESP 18
[2017-01-01] MEDS: NIFEdipine (XL) 60 MG TAB PO SCH ×2 (19:56→21:33)
[2017-01-01 20:00] VITALS: BP_SYST 143; BP_SYST 144; BP_DIAS 63; PULSE 67; RESP 20
[2017-01-01] MEDS ORDERED: hydrALAzine 20 MG INJ IV PRN (20:30)
[2017-01-01] MEDS: INSULIN ASPART [NOVOLOG] 3 ML PEN SC SCH (20:56)
[2017-01-01] MEDS ORDERED: INSULIN GLARGINE [LANtus] 3 ML PEN SC SCH (21:00)
[2017-01-01] MEDS ORDERED: DOXAZOSIN 4 MG TAB PO SCH (21:00)
[2017-01-01] MEDS ORDERED: ATORVASTATIN 40 MG TAB PO SCH (21:00)
[2017-01-01] MEDS ORDERED: NIFEdipine (XL) 60 MG TAB PO SCH (21:00)
[2017-01-01] MEDS: FERROUS SULFATE (EC) 325 MG TAB PO SCH (21:18)
[2017-01-01 21:30] VITALS: BP 159/67; PULSE 56
[2017-01-01 23:00] VITALS: BP 202/89; PULSE 68
[2017-01-02] VITALS (10 sets, daily range): BP systolic 119–166; BP diastolic 58–89; PULSE 60–88; RESP 20
[2017-01-02] MEDS ORDERED: ACCU-CHEK XX SCH ×2 (02:00)
--- NOTE | 2017-01-02 06:05 | HP ---
DATE OF ADMISSION: 01/01/2017 HISTORY OF PRESENT ILLNESS: Mr. Martell is a 71-year-old male who recently started on hemodialys is through an AV fistula in the left upper extremity, who presented with symptomatic anemia. Maryellen sears has no GI bleed. Patient also has bruising of the left arm AV fistula. The patient most probably will need a temporary PermCath so that his fistula is maturing. The patient is being admitted for further management. The patient denies any nausea, vomiting, hematemesis or melena. PAST MEDICAL HISTORY: ESRD, hypertension, diabetes mellitus, AV fistula placement. The patient has a history of anemia. The patient's other history includes a history of dyslipidemia, a history of coronary artery bypass graft, a history of cardiac arrhythmia. The patient has a history of uremia and weight loss. ALLERGY HISTORY: NEGATIVE. FAMILY HISTORY: Negative. SOCIAL HISTORY: Negative at this point. MEDICATION HISTORY: 1. Lipitor. 2. Coreg. 3. Vitamin D3. 4. Bicitra. 5. He has stopped Clonidine. 6. Cardura. 7. Fenofibrate. 8. Iron sulfate. 9. Folic acid. 10. Amaryl. 11. Ibuprofen. 12. Insulin. REVIEW OF SYSTEMS: HEENT: Unremarkable. RESPIRATORY: Unremarkable. CARDIOVASCULAR: Unremarkable. ABDOMEN: Unremarkable. EXTREMITIES: Unremarkable. PHYSICAL EXAMINATION: GENERAL: Pale-looking male, awake, alert. VITAL SIGNS: Stable. HEAD: Atraumatic, normocephalic. Pupils are equal and reactive to light. NECK: Supple. No JVD. LUNGS: Clear. CARDIOVASCULAR: S1, S2 are normal. ABDOMEN: Soft, nontender. Bowel sounds present. No palpable mass or hepatosplenomegaly. No guard ing or rebound tenderness. EXTREMITIES: No cyanosis, clubbing or edema. CENTRAL NERVOUS SYSTEM: The patient is awake, alert. No deficits. SKIN: AV fistula has bruising around it. LABORATORY DATA: The patient's hemoglobin is 6.7, potassium 4.3. IMPRESSION: 1. Symptomatic anemia. 2. Bruising of the AV fistula. 3. End-stage renal disease. 4. Hypertension. 5. Diabetes mellitus. 6. Dyslipidemia. 7. Anemia. PLAN: Give the patient a blood transfusion. Patient will have the PermCath replaced while his AV f istula is healing. Continue home medications. Dictated By: REINIER GIBSON MD BS/NUNO Conf#: [id number] DID#: [id number]
[2017-01-02] MEDS: INSULIN ASPART [NOVOLOG] 3 ML PEN SC SCH ×3 (08:00→18:18)
[2017-01-02] MEDS: FERROUS SULFATE (EC) 325 MG TAB PO SCH (08:30)
[2017-01-02] MEDS ORDERED: MULTIVIT/CA CARB/B CMPLX/FA TAB PO SCH (09:00)
[2017-01-02] MEDS ORDERED: FOLIC ACID 1 MG TAB PO SCH (09:00)
[2017-01-02] MEDS: NIFEdipine (XL) 60 MG TAB PO SCH (09:00)
[2017-01-02] MEDS ORDERED: FENOFIBRATE 145 MG TAB PO SCH (09:00)
[2017-01-02] MEDS ORDERED: CHOLECALCIFEROL 1,000 UNIT TAB PO SCH (09:00)
--- NOTE | 2017-01-02 11:23 | PN ---
Date/Time of Note Date/Time of Note DATE: 01/02/17 TIME: 11:20 Assessment/Plan VTE Prophylaxis VTE Prophylaxis Intervention: SCD's Lines/Catheters IV Catheter Type (from [facility]): Saline Lock Assessment/Plan Chief Complaint/Hosp Course 1. Symptomatic anemia. 2. Bruising of the AV fistula. 3. End-stage renal disease. 4. Hypertension. 5. Diabetes mellitus. 6. Dyslipidemia. 7. Anemia. Problems: Assessment/Plan 1. Permacath placement is delayed to Wednesday , talk to pt about Juan cath placement 2. Blood transfusion is scheduled 3. Resume renal diet 4. Dr Ring for cardio consult Subjective 24 Hr Interval Summary Constitutional: no complaints Respiratory: no complaints Cardiovascular: no complaints Gastrointestinal: no complaints Musculoskeletal: bone/joint pain Skin: bruising (left av shunt) Exam/Review of Systems Vital Signs Vitals Vital Signs Date Time Temp Pulse Resp B/P Pulse Ox O2 Delivery O2 Flow Rate FiO2 01/02/17 08:17 98.5 63 20 148/67 98 01/01/17 19:00 Room Air Intake and Output 01/01/17 01/01/17 01/02/17 15:00 23:00 07:00 Intake Total 830 ml Balance 830 ml Results Result Diagram: 01/01/17 1555 01/01/17 1555 Results 24 hrs Laboratory Tests Test 01/01/17 15:55 01/01/17 18:29 01/01/17 19:45 01/02/17 08:21 White Blood Count 8.2 # Red Blood Count 2.23 L Hemoglobin 6.7 *L Hematocrit 21.4 L Mean Corpuscular Volume 96.0 Mean Corpuscular Hemoglobin 30.0 Mean Corpuscular Hemoglobin Concent 31.3 L Red Cell Distribution Width 14.5 Platelet Count 211 Mean Platelet Volume 11.3 H Neutrophils % 67.0 Lymphocytes % 28.0 Monocytes % 3.0 Eosinophils % 2.0 Neutrophils # 5.5 Lymphocytes # 2.3 Monocytes # 0.2 L Eosinophils # 0.2 Prothrombin Time 13.2 Prothrombin Time Ratio 1.0 INR International Normalized Ratio 1.00 Activated Partial Thromboplast Time 24.4 L Sodium Level 137 Potassium Level 4.3 Chloride Level 102 Carbon Dioxide Level 24 Anion Gap 15 Blood Urea Nitrogen 32 H Creatinine 4.06 H Glucose Level 181 Calcium Level 8.5 Lab Scanned Report REFERENCE LAB Bedside Glucose 132 135 Medications Medications Current Medications Atorvastatin Calcium (Lipitor) 40 mg DAILY@21 PO Last administered on 21:18; Admin Dose 40 MG; Start 01/01/17 at 21:00 Cholecalciferol (Vitamin D) 1,000 unit DAILY PO ; Start 01/02/17 at 09:00 Doxazosin Mesylate (Cardura) 4 mg DAILY@21 PO Last administered on 01/01/17 21 :33; Admin Dose 4 MG; Start 01/01/17 at 21:00 Fenofibrate (Tricor) 145 mg DAILY PO ; Start 01/02/17 at 09:00 Ferrous Sulfate (Ferrous Sulfate (Ec)) 325 mg BID PO Last administered on 21:18; Admin Dose 325 MG; Start 01/01/17 at 21:00 Folic Acid (Folic Acid) 1 mg DAILY PO ; Start 01/02/17 at 09:00 Multivit/Ca Carb/ B Cmplx/FA/Prenat (Celine-Alex) 1 tab DAILY PO ; Start 01/02/17 at 09:00 Insulin Glargine (Lantus) 20 unit QHS SC Last administered on 01/01/17 20:35; Admin Dose 20 UNIT; Start 01/01/17 at 21:00 Miscellaneous Information 1 ea NOTE XX ; Start 01/01/17 at 18:30 Glucose (Glutose) 15 gm Q15M PRN PO DECREASED GLUCOSE; Start 01/01/17 at 18:30 Glucose (Glutose) 22.5 gm Q15M PRN PO DECREASED GLUCOSE; Start 01/01/17 at 18: 30 Dextrose (D50w Syringe) 25 ml Q15M PRN IV DECREASED GLUCOSE; Start 01/01/17 at 18:30 Dextrose (D50w Syringe) 50 ml Q15M PRN IV DECREASED GLUCOSE; Start 01/01/17 at 18:30 Glucagon (Glucagen) 1 mg Q15M PRN IM DECREASED GLUCOSE; Start 01/01/17 at 18:30 Glucose (Glutose) 15 gm Q15M PRN BUCCAL DECREASED GLUCOSE; Start 01/01/17 at 18 :30 Carvedilol (Coreg) 12.5 mg BID PO Last administered on 01/01/17 19:57; Admin Dose 12.5 MG; Start 01/01/17 at 19:42 Clonidine (Catapres) 0.2 mg TID PO Last administered on 01/01/17 19:56; Admin Dose 0.2 MG; Start 01/01/17 at 19:42 Nifedipine (Procardia Xl) 60 mg BID PO Last administered on 01/01/17 21:33; Admin Dose 60 MG; Start 01/01/17 at 19:43 Diagnostic Test (Pha) (Accu-Chek) 1 ea 02 XX ; Start 01/02/17 at 02:00 Hydralazine HCl (Apresoline) 10 mg Q6H PRN IV SBP > 170 Last administered on 23:06; Admin Dose 10 MG; Start 01/01/17 at 20:30 IVONNE BHAT January 02, 2017 11:23
[2017-01-02] MEDS ORDERED: FUROSEMIDE 40 MG INJ IV ONE (13:00)
[2017-01-02 13:22] LABS: ADD SCAN DIFF NO
[2017-01-02 13:25] LABS: BASOPHIL # 0.1 10^3/ul (0.0-0.1); EOSINOPHILS # 0.2 10^3/ul (0.0-0.5); EOSINOPHILS % 3.2 % (0.0-7.0); HEMATOCRIT 25.9 % (42.0-52.0); LYMPHOCYTES # 1.8 10^3/ul (0.8-2.9); LYMPHOCYTES % 25.2 % (15.0-51.0); MEAN CORPUSCULAR HGB CONC 32.4 g/dl (32.0-37.0); MEAN CORPUSCULAR VOLUME 92.5 fl (82.0-101.0); MONOCYTE # 0.5 10^3/ul (0.3-0.9); MONOCYTES % 6.3 % (0.0-11.0); NEUTROPHIL # 4.5 10^3/ul (1.6-7.5); NEUTROPHILS % 63.3 % (39.0-77.0); PLATELET COUNT 217 10^3/UL (140-415); RED CELL DISTRIBUTION WIDTH 15.2 % (11.5-14.5); WHITE BLOOD COUNT 7.1 10^3/ul (4.8-10.8)
[2017-01-02 13:27] LABS: HEMOGLOBIN 8.4 g/dl (14.0-18.0)
--- NOTE | 2017-01-02 14:28 | CONS ---
DATE OF ADMISSION: 01/01/2017 DATE OF CONSULTATION: 01/02/2017 HISTORY OF PRESENT ILLNESS: The patient is a 71-year-old gentleman who had a hemoglobin of 6.6 and was subsequently admitted for blood transfusion. The patient was recently started on hemodialysis. Denies chest pain, shortness of breath, dizziness, syncope or palpitation. Denies nausea or vomitin g. Denies fever, chills or rigors. PAST MEDICAL HISTORY: 1. Coronary artery disease status post bypass surgery in 1995. 2. Hypertension. 3. Diabetes mellitus. 4. Anemia. 5. End-stage renal disease, on hemodialysis. SOCIAL HISTORY: Denies alcohol, smoking or recreational drugs. ALLERGIES: NONE. CURRENT MEDICATIONS: Include: 1. Ferrous sulfate. 2. Coreg. 3. Procardia. 4. Vitamin D. 5. Tricor. 6. Folic acid. 7. Lipitor. 8. Doxycycline. 9. Insulin. 10. Clonidine. REVIEW OF SYSTEMS: Unremarkable except that mentioned in the HPI. PHYSICAL EXAMINATION: VITAL SIGNS: Temperature 98.5, heart rate of 63, blood pressure 148/67 mmHg, breathing at 20, and s aturating at 98%. GENERAL: The patient awake, alert, oriented, in no apparent distress. NECK: No JVD or carotid bruit. CARDIOVASCULAR: Regular rate and rhythm. No murmur, rub or gallop. CHEST: Clear to auscultation. ABDOMEN: Soft. Bowel sounds are present. There is no organomegaly. EXTREMITIES: No pedal edema. Pedal pulses are felt bilaterally. LABORATORY DATA: WBC 9.1, hemoglobin 8.4, hematocrit 25.9, platelets 217. Sodium 137, potassium 4. 8, chloride 102, CO2 of 24, BUN 32, creatinine is 4.06. EKG pending. ASSESSMENT AND PLAN: A 71-year-old gentleman with: 1. Severe anemia. 2. Coronary artery disease status post bypass surgery. 3. Hypertension. 4. Diabetes mellitus. 5. Dyslipidemia. 6. End-stage renal disease, on hemodialysis. The patient is clinically and hemodynamically stable, currently getting second unit of packed red bl ood cells for anemia. RECOMMENDATIONS: 1. Trend troponin, BNP, chest x-ray. 2. 2D echocardiogram to assess for structural heart disease and to rule out for pericardial disease . 3. Continue Coreg and Procardia. 4. Continue fenofibrate 5. Continue insulin. 6. Continue clonidine as scheduled. 7. Continue Lipitor. 8. Continue GI and DVT prophylaxis. Dictated By: STEVEN HEARD MD SR/NUNO Conf#: [id number] DID#: [id number]
--- NOTE | 2017-01-02 17:32 | RADRPT ---
PROCEDURE: US left upper extremity arterial system. CLINICAL INDICATION: Left upper extremity dialysis fistula malfunction. TECHNIQUE: Multiple longitudinal and transverse images of the left upper extremity arterial tree a n dialysis fistula was obtained with santoyo scale pulsed Doppler, and color Doppler imaging. COMPARISON: None available FINDINGS: There is a left brachial artery to left cephalic vein dialysis fistula. The fistula appears patent with no thrombus or occlusion. However, there is stenosis in the mid left cephalic vein. The velocities are as follows: Arterial anastomoses 271 cm/sec. Lower cephalic vein 293 cm/sec. Mid cephalic vein proximal to the stenosis 90 cm/sec. Right cephalic vein at the stenosis 700 cm/sec. Upper cephalic vein distal to the stenosis 105 cm/sec. Upper cephalic vein in the upper arm 92 cm/sec. IMPRESSION: 1. Significant stenosis in the mid cephalic vein which is the outflow vein for the dialysis fistula of the left upper extremity. Balloon venoplasty should be considered. RPTAT: QQ .Margarito Orellana MD, MD Date Time Electronically viewed and signed by .Margarito Orellana MD, on 01/02/2017 17:31 .R/
[2017-01-02 18:30] LABS: ADD SCAN DIFF NO
[2017-01-02 18:31] LABS: BASOPHIL # 0.1 10^3/ul (0.0-0.1); BASOPHILS % 0.6 % (0.0-2.0); EOSINOPHILS # 0.2 10^3/ul (0.0-0.5); EOSINOPHILS % 2.1 % (0.0-7.0); HEMATOCRIT 29.1 % (42.0-52.0); HEMOGLOBIN 9.5 g/dl (14.0-18.0); LYMPHOCYTES # 1.5 10^3/ul (0.8-2.9); LYMPHOCYTES % 19.6 % (15.0-51.0); MEAN CORPUSCULAR HEMOGLOBIN 29.5 pg (29.0-33.0); MEAN CORPUSCULAR HGB CONC 32.6 g/dl (32.0-37.0); MEAN CORPUSCULAR VOLUME 90.4 fl (82.0-101.0); MEAN PLATELET VOLUME 10.8 fl (7.4-10.4); MONOCYTE # 0.6 10^3/ul (0.3-0.9); MONOCYTES % 8.2 % (0.0-11.0); NEUTROPHIL # 5.4 10^3/ul (1.6-7.5); NEUTROPHILS % 68.7 % (39.0-77.0); PLATELET COUNT 208 10^3/UL (140-415); RED BLOOD COUNT 3.22 10^6/ul (4.70-6.10); RED CELL DISTRIBUTION WIDTH 16.1 % (11.5-14.5); WHITE BLOOD COUNT 7.8 10^3/ul (4.8-10.8)
--- NOTE | 2017-01-02 18:50 | CONS ---
DATE OF ADMISSION: 01/01/2017 DATE OF CONSULTATION: REASON FOR CONSULTATION: Evaluation of left upper extremity fistula. HISTORY OF PRESENT ILLNESS: Thank you, Dr. Saeed, for asking me to see this patient. This is a 71- year-old male on dialysis per left upper extremity AV fistula. The patient had difficulty on dialys is in the dialysis unit; however, was dialyzed adequately yesterday with no difficulty. PAST MEDICAL HISTORY: Hypertension, hyperlipidemia, end-stage renal disease, diabetes, history of a rrhythmias. PAST SURGICAL HISTORY: Coronary artery bypass grafting. MEDICATIONS: 1. Lipitor. 2. Coreg. 3. Vitamin B. 4. Vitamin D3. 5. Cardura. 6. Folic acid. 7. Insulin. ALLERGIES: NONE. SOCIAL HISTORY: No smoking, drinking or drug use. REVIEW OF SYSTEMS: No upper or lower GI bleeding, nausea, vomiting, constipation, diarrhea. No hem aturia or dysuria. No skin changes, rashes, moles. Positive for weight loss. No visual changes, h earing loss. PHYSICAL EXAMINATION: GENERAL: The patient is awake, alert, responds appropriately. VITAL SIGNS: Blood pressure is 146/67, pulse is 63, respirations 20, saturations 98%, temperature i s 98.5. HEENT: Normocephalic, atraumatic. PERRLA. NECK: Supple. No JVD, no carotid bruits. CARDIOVASCULAR: Normal S1, S2. No murmurs, gallops or rubs. LUNGS: Clear. ABDOMEN: Soft. EXTREMITIES: Warm. Left upper extremity AV fistula is in place. Positive thrill, bruit, no bleedi ng, no aneurysm. LABORATORY DATA: Hemoglobin 8.4, white count 7.1, platelet count 217. Normal coagulation factors a nd a potassium of 4.3. IMPRESSION: Left upper extremity arteriovenous fistula functioning well at this time. We will chec k Doppler ultrasound. However, would continue dialysis per fistula. Discussed with Dr. Saeed. Dictated By: CEDRICK WOLFF/NTS Conf#: [id number] DID#: [id number]
== END 2017-01-02 19:55 | disposition home or self-care (01) ==
LOC: E/R 14:30 → INTOOBSV 16:23 → PP2 16:23
PROVIDERS: ADMIT Internal Medicine Nephrology; ATTEND Internal Medicine Nephrology
DX: D64.9 Anemia, unspecified (principal); I12.0 Hypertensive chronic kidney disease with stage 5 chronic kidney disease or end stage renal disease; N18.6 End stage renal disease; Z99.2 Dependence on renal dialysis; E11.22 Type 2 diabetes mellitus with diabetic chronic kidney disease; Z79.4 Long term (current) use of insulin; I25.10 Atherosclerotic heart disease of native coronary artery without angina pectoris; Z95.1 Presence of aortocoronary bypass graft; Z79.82 Long term (current) use of aspirin; E78.5 Hyperlipidemia, unspecified
CPT/HCPCS: 36415; 36430; 80048; 82962; 85025; 85610; 85730; 86850; 86900; 86901; 86920; 90935; 93005; 93931; 96372; 96374; 99285; G0378; J0360; J1815; J1940; J7040; P9016; 99217

== ENCOUNTER 2019-01-12 22:33 | Inpatient (IN) | payer MEDICARE, OTHER ==
[~2019-01-12] VITALS: Ht 182.9 cm; Wt 82.0 kg
[~2019-01-12 22:33] MED LIST changes: -AMIO200T; -ASPI-535; +CITR473S3 PO; -CLON-379; -CRES10; +FER325 PO; +FOLI-49 PO; -FURO20TA3; -HUMALOG; -HUMULIN 70/30; +IBUP-1545 PO; +INSU100V3 IJ; -IRBE1TAB; +LANT3I SC; +NIFE60TA18 PO; -NIFE60TA7 PO; -[UNRECOGNIZED DRUG - CODE]; +[UNRECOGNIZED DRUG - CODE] PO
[2019-01-12 22:35] VITALS: Ht 182.9 cm; Wt 82.0 kg
--- NOTE | 2019-01-12 22:41 | ERD ---
ER Documentation Chief Complaint Chief Complaint R100. SOB/WEAKNESS X 1 DAY. DIALYSIS TODAY ( SAT COMPLETED) HPI The patient is a 73-year-old male, presenting to the ER because of acute dyspnea, generalized weakness and constipation for 1 day. He had similar symptoms previously. He had dialysis this morning around 8 AM, denies fever, syncope, near syncope, neck pain, chest pain, abdominal pain, vomiting, dysuria, diarrhea. He does not smoke, drink. He thinks that it might be the sleeping medication that he took but he did not have it today Past medical history: Chronic kidney disease, hypertension, diabetes mellitus, anemia, dyslipidemia, CAD, hemodialysis on Wednesday and Wednesday Surgical history: CABG, left upper extremity AV fistula ROS All systems reviewed and are negative except as per history of present illness. Medications Home Meds Active Scripts Cholecalciferol* (Vitamin D3*) 1,000 Unit Tablet, 1000 UNIT PO DAILY for 28 Days, TAB Prov:REINIER GIBSON MD 12/18/16 Nifedipine (Afeditab CR) 60 Mg Tablet.sa, 60 MG PO BID for 28 Days Prov:REINIER GIBSON MD 12/18/16 Doxazosin Mesylate* (Cardura*) 4 Mg Tablet, 4 MG PO DAILY@21 for 10 Days, TAB Prov:REINIER GIBSON MD 12/18/16 Clonidine Hcl* (Catapres*) 0.2 Mg Tablet, 0.2 MG PO TID for 28 Days, TAB Prov:REINIER GIBSON MD 12/18/16 Carvedilol* (Carvedilol*) 12.5 Mg Tablet, 12.5 MG PO BID for 14 Days, TAB Prov:REINIER GIBSON MD 12/18/16 Atorvastatin* (Atorvastatin*) 40 Mg Tablet, 40 MG PO DAILY@21 for 14 Days, TAB Prov:REINIER GIBSON MD 12/18/16 Reported Medications Insulin Regular, Human (Humulin R) 100 Unit/1 Ml Vial, 0 IJ SLIDING SCALES, VIAL 01/01/17 Folic Acid/Vitamin B Comp W-C (Full Spectrum B With Vit C Tab) 0.8 Mg Tablet, 0.8 MG PO DAILY, TAB 01/01/17 Ibuprofen* (Ibuprofen*) 800 Mg Tab, 800 MG PO BID PRN for PAIN, TAB 01/01/17 Ferrous Sulfate* (Ferrous Sulfate*) 325 Mg Tabec, 325 MG PO BID, TAB 01/01/17 Citric Acid/Sodium Citrate (Cytra-2 Oral Solution) 473 Ml Solution, 473 ML PO DAILY 01/01/17 Insulin Glargine* (Lantus*) 100 Unit/Ml Soln, 20 UNIT SC QHS, #1 VIAL 01/01/17 Folic Acid* (Folic Acid*) 1 Mg Tablet, 1 MG PO DAILY, TAB 01/01/17 Glimepiride* (Amaryl*) 4 Mg Tablet, 4 MG PO BID 08/05/09 Fenofibrate Nanocrystallized* (Tricor*) 145 Mg Tablet, 145 MG PO DAILY 08/05/09 Allergies Allergies: Coded Allergies: No Known Allergy (Verified , 01/01/17) PMhx/Soc History of Surgery: Yes ([facility] 1998) Anesthesia Reaction: No Hx Neurological Disorder: No Hx Respiratory Disorders: No Hx Cardiac Disorders: Yes (HTN, HIGH CHOLESTEROL) Hx Psychiatric Problems: No Hx Miscellaneous Medical Probl: No Hx Alcohol Use: No Hx Substance Use: No Hx Tobacco Use: No Smoking Status: Never smoker Physical Exam Vitals Vital Signs Date Temp Pulse Resp B/P (MAP) Pulse Ox O2 O2 Flow FiO2 Time Delivery Rate 01/12/19 99 4.0 23:04 01/12/19 Nasal 4.0 22:41 Cannula 01/12/19 Nasal 4 22:35 Cannula 01/12/19 98.8 94 20 122/49 99 22:35 (73) Physical Exam Const: Mild acute distress. Head: Atraumatic. Eyes: Normal Conjunctiva. ENT: Normal External Ears, Nose and Mouth. Neck: Full range of motion. No meningismus. Resp: Decreased breath sounds bilaterally. Left lung crackle Cardio: Regular rate and rhythm. Abd: Soft, non distended, normal bowel sounds, non tender. Skin: Ecchymosis. Back: No midline or flank tenderness. Ext: No cyanosis, or edema. Neur: Awake and alert. No focal deficit Psych: Normal Mood and Affect. Result Diagram: 01/12/196 01/12/192245 Results 24 hrs Laboratory Tests Test 01/12/19 22:46 01/12/19 23:30 01/12/19 23:55 White Blood Count 26.8 10^3/ul Red Blood Count 3.88 10^6/ul Hemoglobin 11.9 g/dl Hematocrit 36.9 % Mean Corpuscular Volume 95.1 fl Mean Corpuscular 30.7 pg Hemoglobin Mean Corpuscular 32.2 g/dl Hemoglobin Concent Red Cell Distribution 14.6 % Width Platelet Count 136 10^3/UL Mean Platelet Volume 10.9 fl Immature Granulocytes % 0.800 % Neutrophils % % Segmented Neutrophils 82 % % (Manual) Band Neutrophils % 13 % (Manual) Lymphocytes % % Lymphocytes % (Manual) 1 % Reactive Lymphocytes 1 % % (Manual) Monocytes % % Monocytes % (Manual) 1 % Eosinophils % % Eosinophils % (Manual) 2 % Basophils % % Nucleated Red Blood Cells 0.0 /100WBC % Immature Granulocytes # 0.210 10^3/ul Neutrophils # 10^3/ul Neutrophils # (Manual) 22.9 10^3/ul Band Neutrophils # 3.4 10^3/ul Lymphocytes (Manual) 0.2 10^3/ul Lymphocytes # 10^3/ul Reactive Lymphocytes # 0.2 10^3/ul Monocytes # 10^3/ul Monocytes # (Manual) 0.2 10^3/ul Eosinophils # 10^3/ul Basophils # 10^3/ul Nucleated Red Blood Cells 10^3/ul # Platelet Estimate DECREASED Giant Platelets 1 % Polychromasia 1+ Anisocytosis 1+ Macrocytosis 1+ Target Cells 1+ Prothrombin Time 15.1 Sec Prothrombin Time Ratio 1.2 INR International 1.18 Normalized Ratio Activated 36.9 Sec Partial Thromboplast Time Sodium Level 136 mmol/L Potassium Level 3.0 mmol/L Chloride Level 95 mmol/L Carbon Dioxide Level 30 mmol/L Anion Gap 11 Blood Urea Nitrogen 29 mg/dl Creatinine 3.06 mg/dl Est Glomerular Filtrat mL/min Rate mL/min Glucose Level 103 mg/dl Calcium Level 8.9 mg/dl Troponin I 0.134 ng/ml Blood Gas Specimen Source Blood arterial Arterial Blood Date Drawn 01/12/2019 11:30:17 PM Arterial Blood pH 7.432 (Temp corrected) Arterial Blood pCO2 46.7 mmhg (Temp correct) Arterial Blood pO2 70.1 mmHG (Temp corrected) Arterial Blood HCO3 30.4 mmol/L Arterial Blood Base Excess 5.4 mmol/L Arterial Blood 93.7 mmHG Oxygen Saturation Jaiden Test N/A Arterial Blood Gas Right Brachial Puncture Site Arterial 0.9 % Blood Carboxyhemoglobin Arterial Blood 0 % Methemoglobin Blood Gas A-a O2 110.7 mmHg Differential Oxyhemoglobin Percent 92.9 % Blood Gas Temperature 37.0 C Blood Gas Modality NASAL CANNULA FiO2 33.0 % Blood Gas Notified Whom UP Blood Gas Notified Time 01/12/2019 11:41:00 PM POC Venous Lactate 1.9 mmol/L Current Medications Medications Dose Sig/Rhea Start Time Status Last (Trade) Ordered Route PRN Stop Time Admin Dose Reason Admin Vancomycin 250 ml @ ONCE ONCE 01/13/19 HCl 125 mls/hr IVPB 00:00 01/13/19 01:59 Piperacillin 50 ml @ ONCE ONCE 01/13/19 Sod/ 100 mls/hr IVPB 00:00 Tazobactam 01/13/19 00:29 Sod Aspirin 162 mg ONCE ONCE 01/13/19 (Aspirin) PO 00:30 01/13/19 00:31 Potassium 50 ml @ 50 ONCE ONCE 01/13/19 Chloride mls/hr IVPB 00:30 01/13/19 01:29 Procedures/MDM [place] [id number] Radiology Main Line: [phone] DIAGNOSTIC IMAGING REPORT Patient: ROGER PEPPER : 1945 Age: 73 Sex: M MR #: [id number] DOS: 01/12/19 2250 Ordering MD: LONNY ADAMS MD Location: E/R Room/Bed: PROCEDURE: DX Chest 1 View CLINICAL INDICATION: Short of breath. TECHNIQUE: AP Portable chest. COMPARISON: 08/05/2009 FINDINGS: Surgical changes in the sternum and mediastinum, new from 2008. Low lung volumes. Enlarged heart. There is a large area of airspace disease present in the right perihilar region, extending into the right upper lobe and the left lung base. Aortic calcified plaque present. No CHF or hilar enlargement. Right lung is clear. IMPRESSION: 1. Low lung volumes. 2. Cardiomegaly. 3. Large left lung air space pneumonia. RPTAT: HLRS R-Physician Lien Date Time Electronically viewed and signed by Mehreen Cheek Physician on 01/12/2019 23:36 RS/ CC: LONNY ADAMS MD [id number] EKG: Read by emergency physician Rate/Rhythm: Normal Sinus Rhythm 89 beats/min QRS, ST, T-waves: No ST elevation, inferior ST and T abnormality Impression: Abnormal EKG UA/LFT/PT/PTT Pending ABG on 33%, pH 7.43, PCO2 46, PO2 70 MEDICAL MAKING DECISION: The patient is a 73-year-old male, presenting with acute respiratory failure, acute left pneumonia, acute troponin elevation, acute hypokalemia. He was treated with vancomycin IV and Zosyn IV for acute pneumonia, aspirin 162 mg po for acute troponin elevation, most likely due to infection and chronic kidney disease cannot rule out acute ACS, potassium chloride 10 mEq IV due to hypokalemia The differential diagnoses considered include but are not limited to pneumonia, empyema, aspiration pneumonia, ACS, non-STEMI, electrolyte imbalance, UTI, pyelonephritis Critical Care: Time: 35 minutes excluding all billable procedures. Treatments/Evaluations: Close monitoring and treatment of unstable vital signs, cardiorespiratory, and neurologic status, while maintaining tight balance of fluid, respiratory, and cardiac interventions. Departure Diagnosis: Primary Impression: Acute respiratory failure Additional Impressions: PNA (pneumonia) Elevated troponin Hypokalemia Anemia Thrombocytopenia Condition: Stable Comments I discussed the findings with the patient. I discussed the patient with Tommy , who was made aware of the lab, the treatment, the patient condition. The p atient is admitted to Tel Disclaimer: Inadvertent spelling and grammatical errors are likely due to EHR/dictation software use and do not reflect on the overall quality of patient care. Also, please note that the electronic time recorded on this note does not necessarily reflect the actual time of the patient encounter. LONNY ADAMS MD January 12, 2019 22:41
[2019-01-13] VITALS (7 sets, daily range): BP systolic 116–143; BP diastolic 55–67; PULSE 84–91; RESP 18
[2019-01-13] MEDS ORDERED: PIPER-TAZO 2.25 GM (PMX) 50 ML IVPB ONE
[2019-01-13] MEDS ORDERED: VANCOMYCIN 1 GM (PMX) 250 ML IVPB ONE
[2019-01-13] MEDS ORDERED: ASPIRIN 81 MG TAB PO ONE (00:30)
[2019-01-13] MEDS ORDERED: POTASSIUM CHLORIDE 50 ML IVPB ONE (00:30)
[2019-01-13] MEDS ORDERED: NEPH PO (01:49)
[2019-01-13] MEDS ORDERED: ASPI-817 PO (01:49)
[2019-01-13] MEDS ORDERED: HYDR-3672 PO (01:49)
[2019-01-13] MEDS ORDERED: ZOLP10TA5 PO (01:49)
[2019-01-13] MEDS ORDERED: AMIO200T4 PO (01:49)
[2019-01-13] MEDS ORDERED: ROSU10TA26 PO (01:49)
[2019-01-13] MEDS ORDERED: CHOL100062 PO (01:49)
--- NOTE | 2019-01-13 01:55 | HP ---
Date/Time of Note Date/Time of Note DATE: 01/13/19 TIME: 01:47 Assessment/Plan VTE Prophylaxis Pharmacological prophylaxis: heparin Lines/Catheters IV Catheter Type (from [facility]): Saline Lock Assessment/Plan Hospital Course This is a 73-year-old male being admitted to the telemetry floor for: 1 sepsis: Secondary to underlying healthcare associated pneumonia. Patient actively goes to his dialysis center with the most recent going yesterday a.m. He is afebrile, but he was tachypneic on ED arrival, he also has leukocytosis. Chest x-ray shows a left-sided pneumonia. Vancomycin and Zosyn, renally dose. Lactic acid was within normal values. Await culture results. 2. Healthcare associated pneumonia: Vancomycin, Zosyn, await culture results 3. Hypoxia: Secondary likely to underlying pneumonia. Supplemental O2, antibiotics. 4. nstemi: Type I versus type II: Suspect type II at the current time in the setting of underlying sepsis and pneumonia and end-stage renal disease. Patient denies any chest pain. Will trend cardiac enzymes. EKG was nonischemic. We will get an echocardiogram. Will consult cardiology . 5 Coronary artery disease: History of CABG. Continue home medications 6 end-stage renal disease: On HD Wednesday. He recently had his dialysis yesterday. Will consult nephrology for further dialysis management. Continue home medications 7. Diabetes mellitus: We will check hemoglobin A 1C, resume home insulin, insulin sliding scale 8 hypertension: Resume patient's home medications, will be mindful of blood pressures 9 lower back pain with left leg weakness: Possibly resulting in sciatica. Patient apparently has work-up done as an outpatient but he is not entirely sure what studies. Will obtain a CT of the lumbar spine to further evaluate. Patient does not have any signs of spinal cord compression such as saddle anesthesia or bowel incontinence. 10 DVT GI prophylaxis: Heparin subcu, no GI prophylaxis indicated Further treatment strategy will be implemented as per the clinical course. Result Diagram: 01/12/19224501/12/196 Results 24hrs Laboratory Tests Test 01/12/19 22:46 01/12/19 23:30 01/12/19 23:55 White Blood Count 26.8 #H Red Blood Count 3.88 #L Hemoglobin 11.9 #L Hematocrit 36.9 #L Mean Corpuscular Volume 95.1 Mean Corpuscular Hemoglobin 30.7 Mean Corpuscular 32.2 Hemoglobin Concent Red Cell Distribution Width 14.6 H Platelet Count 136 #L Mean Platelet Volume 10.9 H Immature Granulocytes % 0.800 H Neutrophils % Segmented Neutrophils 82 H % (Manual) Band Neutrophils % (Manual) 13 H Lymphocytes % Lymphocytes % (Manual) 1 L Reactive Lymphocytes 1 H % (Manual) Monocytes % Monocytes % (Manual) 1 Eosinophils % Eosinophils % (Manual) 2 Basophils % Nucleated Red Blood Cells % 0.0 Immature Granulocytes # 0.210 H Neutrophils # Neutrophils # (Manual) 22.9 H Band Neutrophils # 3.4 H Lymphocytes (Manual) 0.2 L Lymphocytes # Reactive Lymphocytes # 0.2 H Monocytes # Monocytes # (Manual) 0.2 L Eosinophils # Basophils # Nucleated Red Blood Cells # Platelet Estimate DECREASED Giant Platelets 1 H Polychromasia 1+ Anisocytosis 1+ Macrocytosis 1+ Target Cells 1+ Prothrombin Time 15.1 H Prothrombin Time Ratio 1.2 INR International 1.18 Normalized Ratio Activated 36.9 H Partial Thromboplast Time Sodium Level 136 Potassium Level 3.0 L Chloride Level 95 L Carbon Dioxide Level 30 Anion Gap 11 Blood Urea Nitrogen 29 H Creatinine 3.06 H Est Glomerular Filtrat Rate mL/min Glucose Level 103 Calcium Level 8.9 Total Bilirubin 3.8 H Direct Bilirubin 3.10 H Indirect Bilirubin 0.7 Aspartate Amino 127 H Transf (AST/SGOT) Alanine 63 Aminotransferase (ALT/SGPT) Alkaline Phosphatase 402 H Troponin I 0.134 *H Total Protein 6.3 Albumin 2.9 L Blood Gas Specimen Source Blood arterial Arterial Blood Date Drawn 01/12/2019 11:30:17 PM Arterial Blood pH 7.432 (Temp corrected) Arterial Blood pCO2 46.7 H (Temp correct) Arterial Blood pO2 70.1 L (Temp corrected) Arterial Blood HCO3 30.4 H Arterial Blood Base Excess 5.4 H Arterial Blood 93.7 L Oxygen Saturation Jaiden Test N/A Arterial Blood Gas Right Brachial Puncture Site Arterial 0.9 Blood Carboxyhemoglobin Arterial Blood 0 Methemoglobin Blood Gas A-a O2 110.7 H Differential Oxyhemoglobin Percent 92.9 L Blood Gas Temperature 37.0 Blood Gas Modality NASAL CANNULA FiO2 33.0 Blood Gas Notified Whom UP Blood Gas Notified Time 01/12/2019 11:41:00 PM POC Venous Lactate 1.9 HPI/ROS Admit Date/Time Admit Date/Time Hx of Present Illness Chief complaint: Shortness of breath, weakness This is a 73-year-old male who presented to the emergency department with complaints of dyspnea and generalized weakness x1 day. He had dialysis this morning around 8 AM. Patient denies any cough. Daughter does state that the patient has also been dealing with left leg weakness and pain for a few months now. He previously had a work-up done as an outpatient but it did not elicit any results. He complains of chronic lower back pain. And pain on his anterior left thigh when he tries to get up. Denies any saddle anesthesia or any bowel incontinence. Denies fever, syncope, near syncope, neck pain, chest pain, abdominal pain, vomiting, dysuria, diarrhea. He does not smoke, drink. H Allergies: NKDA Medications: See OCT FARHANA Const: As per HPI Eyes : No pain discharge or redness or change in visual acuity ENT: No pain, sore throat, congestion, congestion, dysphagia or discharge Respiratory: As per HPI Cardiovascular: No chest pain, palpitation, PND, or edema GI : no change in appetite, abdominal pain, nausea, vomiting, diarrhea, constipation, or change in the color his stool Genitourinary: No dysuria, hematuria, flank pain , discharge or CVA tenderness Musculoskeletal: As per HPI Skin: No rash, bruising or hives Neuro: No headache, dizziness, syncope, seizure, focal weakness Endocrine: No polyuria, polydipsia, temperature intolerance Psych: No hallucination, depression, anxiety or suicidal ideation PMH/Family/Social Past Medical History End-stage renal disease on hemodialysis Wednesday., hypertension, diabetes mellitus, anemia, dyslipidemia, CAD, Medications Current Medications Vancomycin HCl 250 ml @ 125 mls/hr ONCE ONCE IVPB Last administered on 01/13/19at 01:05; Admin Dose 125 MLS/HR; Start 01/13/19 at 00:00; Stop 01/13/19 at 01:59 Vancomycin HCl (Vanco Iv Per Pharmacy) VANCOMYCIN PER PHARMACY PER PROTOCOL XX ; Start 01/13/19 at 02:00; Status UNV Piperacillin Sod/ Tazobactam Sod 100 ml @ 200 mls/hr Q8 IVPB ; Start 01/13/19 at 06:00; Status UNV IV Flush (NS 3 ml) 3 ml PER PROTOCOL IV ; Start 01/13/19 at 02:00; Status UNV Acetaminophen (Tylenol Tab) 650 mg Q6H PRN PO .PAIN 1-3 OR TEMP; Start 01/13/19 at 02:00; Status UNV Acetaminophen/ Hydrocodone Bitart ([place] (5/325)) 1 tab Q6H PRN PO .PAIN 4-6; Start 01/13/19 at 02:00; Status UNV Docusate Sodium (Colace) 100 mg Q12H PRN PO .CONSTIPATION; Start 01/13/19 at 02:00; Status UNV Bisacodyl (Dulcolax) 5 mg DAILY PRN PO .CONSTIPATION; Start 01/13/19 at 02:00; Status UNV Pantoprazole (Protonix Tab) 40 mg DAILY@06 PO ; Start 01/13/19 at 06:00; Status UNV Heparin Sodium (Porcine) (Heparin (5000 Units/1ml)) 5,000 unit Q8 SC ; Start 01/13/19 at 06:00; Status UNV Atorvastatin Calcium (Lipitor) 40 mg DAILY@21 PO ; Start 01/13/19 at 21:00; Status UNV Carvedilol (Coreg) 12.5 mg BID PO ; Start 01/13/19 at 09:00; Status UNV Clonidine (Catapres) 0.2 mg TID PO ; Start 01/13/19 at 09:00; Status UNV Doxazosin Mesylate (Cardura) 4 mg DAILY@21 PO ; Start 01/13/19 at 21:00; Status UNV Ferrous Sulfate (Ferrous Sulfate (Ec)) 325 mg BID PO ; Start 01/13/19 at 09:00; Status UNV Folic Acid (Folic Acid) 1 mg DAILY PO ; Start 01/13/19 at 09:00; Status UNV Insulin Glargine (Lantus) 20 units QHS SC ; Start 01/13/19 at 21:00; Status UNV Nifedipine (Procardia Xl) 60 mg BID PO ; Start 01/13/19 at 09:00; Status UNV Coded Allergies: No Known Allergy (Unverified , 01/13/19) Past Surgical History CABG, left upper extremity AV fistula Family History Significant Family History: no pertinent family hx Social History Alcohol Use: none Smoking Status: Never smoker Drug Use: none Exam/Review of Systems Vital Signs Vitals Vital Signs Date Temp Pulse Resp B/P (MAP) Pulse Ox O2 O2 Flow FiO2 Time Delivery Rate 01/13/19 85 30 106/38 98 Room Air 01:10 (60) 01/12/19 4.0 23:04 01/12/19 98.8 22:35 Exam Exam General: Patient is a pleasant male currently lying in bed in no acute distress HEENT: Atraumatic, normocephalic. The pupils are equal, round and reactive. Extraocular motor are intact Neck: Supple with full range of motion. No rigidity or meningismus Chest: Nontender Lungs: Coarse breath sounds bilaterally, decreased breath sounds over the left lung field Heart: Normal S1-S2, Regular rhythm and rate. No murmur, S3, or S4 Abdomen: Soft , nontender, nondistended , bowel sounds are present. No guarding no rebound tenderness , No masses or organomegaly. No costovertebral temporal angle mass Extremities: Normal to inspection, no edema no cyanosis Musculoskeletal: Tenderness palpation over the lumbar spine and left paravertebral area Neurologic: Normal mental status, speech normal, cranial nerves II through XII are intact, motor and sensory are intact, no focal weakness Additional Comments PROCEDURE: DX Chest 1 View CLINICAL INDICATION: Short of breath. TECHNIQUE: AP Portable chest. COMPARISON: 08/05/2009 FINDINGS: Surgical changes in the sternum and mediastinum, new from 2008. Low lung volumes. Enlarged heart. There is a large area of airspace disease present in the right perihilar region, extending into the right upper lobe and the left lung base. Aortic calcified plaque present. No CHF or hilar enlargement. Right lung is clear. IMPRESSION: 1. Low lung volumes. 2. Cardiomegaly. 3. Large left lung air space pneumonia. RPTAT: HLRS Physician En Date Time Electronically viewed and signed by Physician En on 01/12/2019 23:36 RS/ CC: LONNY ADAMS MD [id number] EKG: Rate/Rhythm: Normal Sinus Rhythm 89 beats/min QRS, ST, T-waves: No ST elevation, inferior ST and T abnormality EVELINE PEREIRA January 13, 2019 01:55
[2019-01-13] MEDS ORDERED: BISACODYL (EC) 5 MG TAB PO PRN (02:00)
[2019-01-13] MEDS ORDERED: NACL 0.9% 3 ML SYG IV SCH (02:00)
[2019-01-13] MEDS ORDERED: SOD CHLORIDE 0.9% 250 ML IV ONE (02:00)
[2019-01-13] MEDS ORDERED: VANCOMYCIN IV PER PHARMACY XX SCH (02:00)
[2019-01-13] MEDS ORDERED: DOCUSATE SODIUM 100 MG CAP PO PRN (02:00)
[2019-01-13] MEDS: PIPER-TAZO 2.25 GM (PMX) 50 ML IVPB SCH ×3 (05:10→21:07)
[2019-01-13] MEDS ORDERED: PIPER-TAZO 3.375 GM IV (PMX) 100 ML IVPB SCH (06:00)
[2019-01-13] MEDS: PANTOPRAZOLE (EC) 40 MG TAB PO SCH (07:06)
[2019-01-13] MEDS: HEPARIN 5,000 UNIT/1 ML VIAL SC SCH ×3 (07:06→21:33)
[2019-01-13] MEDS: HYDROCODONE/APAP (5/325) TAB PO PRN ×2 (07:06→15:16)
[2019-01-13] MEDS: NIFEdipine (XL) 60 MG TAB PO SCH ×2 (09:00→21:00)
--- NOTE | 2019-01-13 10:57 | CONS ---
Assessment/Plan Assessment/Plan Hospital Course (Demo Recall) Sepsis secondary to pneumonia Minimally elevated troponin, trending down CAD with history of CABG End-stage renal disease on hemodialysis Diabetes Hypertension Dyslipidemia -Patient presents with symptoms of fatigue, chills and shortness of breath. Found to have pneumonia on chest x-ray as well as leukocytosis and minimally elevated troponins which are currently trending down. -ECG with no significant seeming abnormalities. Elevation likely secondary to sepsis -Restart aspirin therapy, continue statin therapy, continue beta-farrukh as heart rate and blood pressure permits -We will check echocardiogram Consultation Date/Type/Reason Admit Date/Time Type of Consult Cardiology Reason for Consultation Elevated troponin Date/Time of Note DATE: 01/13/19 TIME: 10:53 Hx of Present Illness This is a 73-year-old male with past medical history of CAD status post CABG, hypertension, end-stage renal disease on hemodialysis who presents with shortness of breath and not feeling well. Symptoms have been going off and on for the past couple days. Patient noticed after hemodialysis yesterday, he was more short of breath. Denies any chest pain. He does complain of weakness and chills. Prior to this episode, he denies exertional chest pain. He does at times get exertional shortness of breath. Denies any dizziness or lightheadedness currently. 12 point review of systems was performed with all pertinent positives and negatives mentioned above and all else is negative Past Medical History Medical History: coronary artery disease, diabetes, hypertension, renal disease Home Meds Reported Medications Cholecalciferol* (Vitamin D3*) 1,000 Unit Tablet, 1000 UNIT PO DAILY, TAB 01/13/19 Multivit/Ca Carb/B Cmplx/Fa* (Celine-Alex*) 1 Tab Tab, 1 TAB PO DAILY, TAB 01/13/19 Aspirin* (Aspirin* EC) 81 Mg Tablet.dr, 81 MG PO DAILY, TAB 01/13/19 Rosuvastatin Calcium (Rosuvastatin Calcium) 10 Mg Tablet, 10 MG PO QAM for 30 Days, #30 01/13/19 Hydralazine Hcl* (Apresoline*) 50 Mg Tab, 50 MG PO TID for 30 Days, #90 01/13/19 Zolpidem Tartrate* (Zolpidem Tartrate*) 10 Mg Tablet, 10 MG PO QHS for 30 Days, #30 01/13/19 Amiodarone Hcl* (Amiodarone Hcl*) 200 Mg Tablet, 200 MG PO QAM for 30 Days, #30 01/13/19 Ibuprofen* (Ibuprofen*) 800 Mg Tab, 1600 MG PO BID PRN for PAIN, TAB 01/01/17 Folic Acid* (Folic Acid*) 1 Mg Tablet, 1 MG PO DAILY, TAB 01/01/17 Discontinued Reported Medications Insulin Regular, Human (Humulin R) 100 Unit/1 Ml Vial, 0 IJ SLIDING SCALES, VIAL 01/01/17 Folic Acid/Vitamin B Comp W-C (Full Spectrum B With Vit C Tab) 0.8 Mg Tablet, 0.8 MG PO DAILY, TAB 01/01/17 Ferrous Sulfate* (Ferrous Sulfate*) 325 Mg Tabec, 325 MG PO BID, TAB 01/01/17 Citric Acid/Sodium Citrate (Cytra-2 Oral Solution) 473 Ml Solution, 473 ML PO DAILY 01/01/17 Insulin Glargine* (Lantus*) 100 Unit/Ml Soln, 20 UNIT SC QHS, #1 VIAL 01/01/17 Glimepiride* (Amaryl*) 4 Mg Tablet, 4 MG PO BID 08/05/09 Fenofibrate Nanocrystallized* (Tricor*) 145 Mg Tablet, 145 MG PO DAILY 08/05/09 Discontinued Scripts Cholecalciferol* (Vitamin D3*) 1,000 Unit Tablet, 1000 UNIT PO DAILY for 28 Days, TAB Prov:REINIER GIBSON MD 12/18/16 Nifedipine (Afeditab CR) 60 Mg Tablet.sa, 60 MG PO BID for 28 Days Prov:REINIER GIBSON MD 12/18/16 Doxazosin Mesylate* (Cardura*) 4 Mg Tablet, 4 MG PO DAILY@21 for 10 Days, TAB Prov:REINIER GIBSON MD 12/18/16 Clonidine Hcl* (Catapres*) 0.2 Mg Tablet, 0.2 MG PO TID for 28 Days, TAB Prov:ERINIER GIBSON MD 12/18/16 Carvedilol* (Carvedilol*) 12.5 Mg Tablet, 12.5 MG PO BID for 14 Days, TAB Prov:REINIER GIBSON MD 12/18/16 Atorvastatin* (Atorvastatin*) 40 Mg Tablet, 40 MG PO DAILY@21 for 14 Days, TAB Prov:REINIER GIBSON MD 12/18/16 Medications Current Medications Vancomycin HCl (Vanco Iv Per Pharmacy) VANCOMYCIN PER PHARMACY PER PROTOCOL XX ; Start 01/13/19 at 02:00 IV Flush (NS 3 ml) 3 ml PER PROTOCOL IV ; Start 01/13/19 at 02:00 Acetaminophen (Tylenol Tab) 650 mg Q6H PRN PO .PAIN 1-3 OR TEMP; Start 01/13/19 at 02:00 Acetaminophen/ Hydrocodone Bitart ([place] (5/325)) 1 tab Q6H PRN PO .PAIN 4-6 Last administered on 01/13/19at 07:06; Admin Dose 1 TAB; Start 01/13/19 at 02:00 Docusate Sodium (Colace) 100 mg Q12H PRN PO .CONSTIPATION; Start 01/13/19 at 02:00 Bisacodyl (Dulcolax) 5 mg DAILY PRN PO .CONSTIPATION; Start 01/13/19 at 02:00 Pantoprazole (Protonix Tab) 40 mg DAILY@06 PO Last administered on 01/13/19at 07:06; Admin Dose 40 MG; Start 01/13/19 at 06:00 Heparin Sodium (Porcine) (Heparin (5000 Units/1ml)) 5,000 unit Q8 SC Last administered on 01/13/19at 07:06; Admin Dose 5,000 UNIT; Start 01/13/19 at 06:00 Atorvastatin Calcium (Lipitor) 40 mg DAILY@21 PO ; Start 01/13/19 at 21:00 Carvedilol (Coreg) 12.5 mg BID PO ; Start 01/13/19 at 09:00 Clonidine (Catapres) 0.2 mg TID PO ; Start 01/13/19 at 09:00 Doxazosin Mesylate (Cardura) 4 mg DAILY@21 PO ; Start 01/13/19 at 21:00 Ferrous Sulfate (Ferrous Sulfate (Ec)) 325 mg BID PO ; Start 01/13/19 at 09:00 Folic Acid (Folic Acid) 1 mg DAILY PO ; Start 01/13/19 at 09:00 Insulin Glargine (Lantus) 20 units QHS SC ; Start 01/13/19 at 21:00 Nifedipine (Procardia Xl) 60 mg BID PO ; Start 01/13/19 at 09:00 Piperacillin Sod/ Tazobactam Sod 50 ml @ 100 mls/hr Q8 IVPB Last administered on 01/13/19at 05:10; Admin Dose 100 MLS/HR; Start 01/13/19 at 06:00 Allergies: Coded Allergies: No Known Allergy (Unverified , 01/13/19) Past Surgical History Past Surgical Hx: coronary bypass surgery, other (AV fistula) Social History Alcohol Use: none Smoking Status: Never smoker Drug Use: none Exam/Review of Systems Vital Signs Vitals Vital Signs Date Temp Pulse Resp B/P (MAP) Pulse Ox O2 O2 Flow FiO2 Time Delivery Rate 01/13/19 98.7 87 18 119/55 91 10:44 (76) 01/13/19 Room Air 4.0 09:48 Nasal Cannula Exam Constitutional: alert, oriented (Appears tired, no apparent distress) Head: normocephalic Respiratory: other (Coarse breath sounds bilaterally, no wheezing) Cardiovascular: regular rate and rhythm (S1-S2 heard), systolic murmur Gastrointestinal: soft, non-tender, bowel sounds Extremities: edema (Trace) Labs Result Diagram: 01/13/1931 01/13/1931 Results 24hrs Laboratory Tests Test 01/12/19 22:46 01/12/19 23:30 01/12/19 23:55 01/13/19 02:24 White Blood Count 26.8 #H Red Blood Count 3.88 #L Hemoglobin 11.9 #L Hematocrit 36.9 #L Mean Corpuscular 95.1 Volume Mean Corpuscular 30.7 Hemoglobin Mean Corpuscular 32.2 Hemoglobin Concen t Red Cell 14.6 H Distribution Width Platelet Count 136 #L Mean Platelet 10.9 H Volume Immature 0.800 H Granulocytes % Neutrophils % Segmented 82 H Neutrophils % (Manual) Band Neutrophils 13 H % (Manual) Lymphocytes % Lymphocytes % 1 L (Manual) Reactive 1 H Lymphocytes % (Manual) Monocytes % Monocytes % 1 (Manual) Eosinophils % Eosinophils % 2 (Manual) Basophils % Nucleated Red 0.0 Blood Cells % Immature 0.210 H Granulocytes # Neutrophils # Neutrophils # 22.9 H (Manual) Band Neutrophils 3.4 H # Lymphocytes 0.2 L (Manual) Lymphocytes # Reactive 0.2 H Lymphocytes # Monocytes # Monocytes # 0.2 L (Manual) Eosinophils # Basophils # Nucleated Red Blood Cells # Platelet Estimate DECREASED Giant Platelets 1 H Polychromasia 1+ Anisocytosis 1+ Macrocytosis 1+ Target Cells 1+ Prothrombin Time 15.1 H Prothrombin Time 1.2 Ratio INR International 1.18 Normalized Ratio Activated 36.9 H Partial Thrombopl ast Time Sodium Level 136 Potassium Level 3.0 L Chloride Level 95 L Carbon Dioxide 30 Level Anion Gap 11 Blood Urea 29 H Nitrogen Creatinine 3.06 H Est Glomerular Filtrat Rate mL/min Glucose Level 103 Calcium Level 8.9 Total Bilirubin 3.8 H Direct Bilirubin 3.10 H Indirect 0.7 Bilirubin Aspartate Amino 127 H Transf (AST/SGOT) Alanine 63 Aminotransferase (ALT/SGPT) Alkaline 402 H Phosphatase Troponin I 0.134 *H Total Protein 6.3 Albumin 2.9 L Blood Gas Blood arterial Specimen Source Arterial Blood 01/12/2019 11:30: Date Drawn 17 PM Arterial Blood pH 7.432 (Temp corrected) Arterial Blood 46.7 H pCO2 (Temp correct) Arterial Blood 70.1 L pO2 (Temp corrected) Arterial Blood 30.4 H HCO3 Arterial Blood 5.4 H Base Excess Arterial Blood 93.7 L Oxygen Saturation Jaiden Test N/A Arterial Blood Right Brachial Gas Puncture Site Arterial 0.9 Blood Carboxyhemo globin Arterial Blood 0 Methemoglobin Blood Gas A-a O2 110.7 H Differential Oxyhemoglobin 92.9 L Percent Blood Gas 37.0 Temperature Blood Gas NASAL CANNULA Modality FiO2 33.0 Blood Gas UP Notified Whom Blood Gas 01/12/2019 11:41: Notified Time 00 PM POC Venous 1.9 Lactate Lactic Acid Level 1.6 Test 01/13/19 05:31 01/13/19 09:26 White Blood Count 26.6 H Red Blood Count 3.46 L Hemoglobin 10.7 L Hematocrit 33.5 L Mean Corpuscular 96.8 Volume Mean Corpuscular 30.9 Hemoglobin Mean Corpuscular 31.9 L Hemoglobin Concen t Red Cell 14.7 H Distribution Width Platelet Count 130 L Mean Platelet 12.4 H Volume Immature 0.900 H Granulocytes % Neutrophils % Segmented 74 Neutrophils % (Manual) Band Neutrophils 17 H % (Manual) Lymphocytes % Lymphocytes % 6 L (Manual) Monocytes % Monocytes % 3 (Manual) Eosinophils % Basophils % Nucleated Red 0.1 H Blood Cells % Immature 0.240 H Granulocytes # Neutrophils # Neutrophils # 20.9 H (Manual) Band Neutrophils 4.5 H # Lymphocytes 1.5 (Manual) Lymphocytes # Monocytes # Monocytes # 0.7 (Manual) Eosinophils # Basophils # Nucleated Red Blood Cells # Platelet Estimate DECREASED Giant Platelets 4 H Polychromasia 1+ Anisocytosis 1+ Microcytosis 1+ Macrocytosis 1+ Target Cells 1+ Stomatocytes 1+ Sodium Level 136 Potassium Level 3.4 L Chloride Level 97 Carbon Dioxide 31 Level Anion Gap 8 Blood Urea 33 H Nitrogen Creatinine 3.21 H Est Glomerular Filtrat Rate mL/min Glucose Level 89 Hemoglobin A1c 4.7 Lactic Acid Level 1.4 Calcium Level 8.5 Magnesium Level 2.1 Total Bilirubin 3.6 H Direct Bilirubin 3.10 H Indirect 0.5 Bilirubin Aspartate Amino 108 H Transf (AST/SGOT) Alanine 58 Aminotransferase (ALT/SGPT) Alkaline 314 H Phosphatase Creatine Kinase < 20 L < 20 L Creatine Kinase Index Creatinine Kinase 0.51 0.66 MB (Mass) Troponin I 0.119 0.113 Total Protein 5.5 L Albumin 2.4 L Globulin 3.10 Albumin/Globulin 0.77 Ratio Triglycerides 348 H Level Cholesterol Level 99 L LDL Cholesterol, 17 Calculated HDL Cholesterol 12 L Cholesterol/HDL 8.2 Ratio Procalcitonin 9.65 H Thyroid 0.147 L Stimulating Hormone (TSH) Imaging Imaging ECG sinus rhythm 99 bpm, QRS 92 ms, nonspecific ST abnormalities Medications Medications Current Medications Vancomycin HCl (Vanco Iv Per Pharmacy) VANCOMYCIN PER PHARMACY PER PROTOCOL XX ; Start 01/13/19 at 02:00 IV Flush (NS 3 ml) 3 ml PER PROTOCOL IV ; Start 01/13/19 at 02:00 Acetaminophen (Tylenol Tab) 650 mg Q6H PRN PO .PAIN 1-3 OR TEMP; Start 01/13/19 at 02:00 Acetaminophen/ Hydrocodone Bitart ([place] (5/325)) 1 tab Q6H PRN PO .PAIN 4-6 Last administered on 01/13/19at 07:06; Admin Dose 1 TAB; Start 01/13/19 at 02:00 Docusate Sodium (Colace) 100 mg Q12H PRN PO .CONSTIPATION; Start 01/13/19 at 02:00 Bisacodyl (Dulcolax) 5 mg DAILY PRN PO .CONSTIPATION; Start 01/13/19 at 02:00 Pantoprazole (Protonix Tab) 40 mg DAILY@06 PO Last administered on 01/13/19at 07:06; Admin Dose 40 MG; Start 01/13/19 at 06:00 Heparin Sodium (Porcine) (Heparin (5000 Units/1ml)) 5,000 unit Q8 SC Last administered on 01/13/19at 07:06; Admin Dose 5,000 UNIT; Start 01/13/19 at 06:00 Atorvastatin Calcium (Lipitor) 40 mg DAILY@21 PO ; Start 01/13/19 at 21:00 Carvedilol (Coreg) 12.5 mg BID PO ; Start 01/13/19 at 09:00 Clonidine (Catapres) 0.2 mg TID PO ; Start 01/13/19 at 09:00 Doxazosin Mesylate (Cardura) 4 mg DAILY@21 PO ; Start 01/13/19 at 21:00 Ferrous Sulfate (Ferrous Sulfate (Ec)) 325 mg BID PO ; Start 01/13/19 at 09:00 Folic Acid (Folic Acid) 1 mg DAILY PO ; Start 01/13/19 at 09:00 Insulin Glargine (Lantus) 20 units QHS SC ; Start 01/13/19 at 21:00 Nifedipine (Procardia Xl) 60 mg BID PO ; Start 01/13/19 at 09:00 Piperacillin Sod/ Tazobactam Sod 50 ml @ 100 mls/hr Q8 IVPB Last administered on 01/13/19at 05:10; Admin Dose 100 MLS/HR; Start 01/13/19 at 06:00 Wilfred Decker DO January 13, 2019 10:57
[2019-01-13] MEDS: FOLIC ACID 1 MG TAB PO SCH (11:05)
[2019-01-13] MEDS: FERROUS SULFATE (EC) 325 MG TAB PO SCH ×2 (11:07→21:02)
[2019-01-13] MEDS: ASPIRIN 81 MG TAB PO SCH (11:17)
[2019-01-13] MEDS ORDERED: POTASSIUM CHLORIDE (SR) 20 MEQ TAB PO STA (12:43)
--- NOTE | 2019-01-13 12:43 | QN ---
Documentation Comment pt seen and examined JUAN NOLAND MD January 13, 2019 12:43
--- NOTE | 2019-01-13 14:13 | RADRPT ---
Echocardiogram Report Patient Name: ROGER PEPPERPatient ID: [id number] : 1945 (73y 7m)Study Date: 01/13/2019 8:39:26 AM Gender: MAccession #: [id number] Tech: Abraham Nelson RDCS Location: [facility] Ref.Physician: EVELINE PEREIRA Height(Cm): BSA: Weight(Kg): Quality: AdequateOrder Physician: EVELINE PEREIRA Account #: Procedures: Echocardiographic Report: Transthoracic echocardiogram with complete 2D, M-Mode, and doppler examination. Indications: Elevated trop. Measurements: 2D/M Mode Doppler Measurement Value Normal Range Measurement Value Normal Range LVIDd 2D 4.3 [ 4.2 - 5.8 ] cm AV Mean Vinod 1.3 [ 70.0 - 90.0 ] cm/sec LVIDs 2D 2.8 [ 2.5 - 4.0 ] cm AV Mean PG 8.0 [ 2.0 - 4.0 ] mmHg LVPWd 2D 1.3 [ 0.6 - 1.0 ] cm AV Peak Vinod 2.1 [ 100.0 - 170.0 ] cm/sec IVSd 2D 1.1 [ 0.6 - 1.0 ] cm AV Peak PG 18.0 [ 2.0 - 9.0 ] mmHg IVS/LVPW 2D 0.9 ratio AV VTI 36.0 cm AoR Diam 2D 3.4 [ 2.6 - 3.4 ] cm LVOT Mean Vinod 0.9 [ 60.0 - 80.0 ] cm/sec LA/Ao 2D 1 ratio LVOT Mean PG 4.0 [ 1.0 - 3.0 ] mmHg LA Dimen 2D 3.5 [ 3.0 - 4.0 ] cm LVOT Peak Vinod 1.5 [ 70.0 - 110.0 ] cm/sec LVOT Peak PG 8.0 [ 2.0 - 6.0 ] mmHg LVOT VTI 25.6 [ 20.0 - 30.0 ] cm MV E Peak Vinod 0.8 [ 60.0 - 130.0 ] cm/sec MV A Peak Vinod 0.9 [ 100.0 - 120.0 ] cm/sec MV E/A 0.9 [ 0.8 - 1.5 ] ratio MV Decel Time 264 [ 104 - 258 ] msec Lat E` Vinod 0.1 [ 10.0 - 15.0 ] cm/sec MV E/A 0.9 [ 0.8 - 1.5 ] ratio TR Peak Vinod 3.6 [ 100.0 - 280.0 ] cm/sec TR Peak PG 53.0 mmHg RVSP 56.0 [ 10.0 - 36.0 ] mmHg RA Pressure 3.0 mmHg Findings: Left Ventricle: Normal left ventricular systolic function. Normal left ventricular cavity size. Mild concentric left ventricular hypertrophy. Ejection fraction is visually estimated at 65 %. Tissue Doppler/Mitral Doppler indices are consistent with impaired relaxation (Stage I diastolic dysfunction). Right Ventricle: Normal right ventricular size. Normal right ventricular systolic function. Left Atrium: The left atrium is normal in size. Right Atrium: The right atrium is normal in size. Mitral Valve: Mitral valve leaflets appear mildly thickened. Mild mitral annular calcification. Trace mitral regurgitation. Aortic Valve: Aortic sclerosis without significant stenosis. Trace aortic valve regurgitation. Tricuspid Valve: Normal appearance of the tricuspid valve. The estimated Peak RVSP is 56 mmHg. There is mild tricuspid regurgitation. Pulmonic Valve: Pulmonic valve not well visualized. Pericardium: Normal pericardium with no significant pericardial effusion. Aorta: Normal aortic root. IVC: Normal size and normal respiratory collapse consistent with normal right atrial pressure. Conclusions: Normal left ventricular systolic function. Normal left ventricular cavity size. Mild concentric left ventricular hypertrophy. Ejection fraction is visually estimated at 65 %. Tissue Doppler/Mitral Doppler indices are consistent with impaired relaxation (Stage I diastolic dysfunction). Normal right ventricular size. Normal right ventricular systolic function. The left atrium is normal in size. The right atrium is normal in size. Normal appearance of the tricuspid valve. The estimated Peak RVSP is 56 mmHg. There is mild tricuspid regurgitation. No significant valvular stenosis or regurgitation seen of remaining visualized valves. Normal pericardium with no significant pericardial effusion. Electronically Signed By: Wilfred Decker 2019-01-13 14:12:35 PDT
--- NOTE | 2019-01-13 15:12 | PN ---
Date/Time of Note Date/Time of Note DATE: 01/13/19 TIME: 15:04 Assessment/Plan VTE Prophylaxis Pharmacological prophylaxis: heparin Lines/Catheters IV Catheter Type (from Nrs): Saline Lock Assessment/Plan Hospital Course This is a 73-year-old male being admitted to the telemetry floor for: 1. Sepsis secondary to underlying healthcare associated pneumonia possibly from dialysis center Patient actively goes to his dialysis center Patient with leukocytosis, hypotension and tachycardia Chest x-ray shows a left-sided pneumonia. Vancomycin and Zosyn, renally dose. Lactic acid was within normal values. Await culture results. 2. Healthcare associated pneumonia: Vancomycin, Zosyn, await culture results 3. Hypoxia: Secondary likely to underlying pneumonia. Supplemental O2, antibiotics. 4. NSTEMI type II secondary to demand Cardiology consultation appreciated, troponins are trending down Echo shows preserved EF Aspirin and statin 5 Coronary artery disease: History of CABG Continue home medications 6. End-stage renal disease Patient receives dialysis Wednesday, and Wednesday, last dialysis was Nephrology consultation appreciated 7. Diabetes mellitus A1c 4.7 Continue Lantus, sliding scale 8. Hypertension Resume home meds as needed, BP currently normal to low 9. Lower back pain with left leg weakness: Possibly resulting in sciatica. Patient apparently has work-up done as an outpatient but he is not entirely sure what studies. Will obtain a CT of the lumbar spine to further evaluate. Patient does not have any signs of spinal cord compression such as saddle anesthesia or bowel incontinence. Prophylaxis: Heparin subcu, no GI prophylaxis indicated Result Diagram: 01/13/1953001/13/19530 Results 24hrs Laboratory Tests Test 01/12/19 22:46 01/12/19 23:30 01/12/19 23:55 01/13/19 02:24 White Blood Count 26.8 #H Red Blood Count 3.88 #L Hemoglobin 11.9 #L Hematocrit 36.9 #L Mean Corpuscular 95.1 Volume Mean Corpuscular 30.7 Hemoglobin Mean Corpuscular 32.2 Hemoglobin Concen t Red Cell 14.6 H Distribution Width Platelet Count 136 #L Mean Platelet 10.9 H Volume Immature 0.800 H Granulocytes % Neutrophils % Segmented 82 H Neutrophils % (Manual) Band Neutrophils 13 H % (Manual) Lymphocytes % Lymphocytes % 1 L (Manual) Reactive 1 H Lymphocytes % (Manual) Monocytes % Monocytes % 1 (Manual) Eosinophils % Eosinophils % 2 (Manual) Basophils % Nucleated Red 0.0 Blood Cells % Immature 0.210 H Granulocytes # Neutrophils # Neutrophils # 22.9 H (Manual) Band Neutrophils 3.4 H # Lymphocytes 0.2 L (Manual) Lymphocytes # Reactive 0.2 H Lymphocytes # Monocytes # Monocytes # 0.2 L (Manual) Eosinophils # Basophils # Nucleated Red Blood Cells # Platelet Estimate DECREASED Giant Platelets 1 H Polychromasia 1+ Anisocytosis 1+ Macrocytosis 1+ Target Cells 1+ Prothrombin Time 15.1 H Prothrombin Time 1.2 Ratio INR International 1.18 Normalized Ratio Activated 36.9 H Partial Thrombopl ast Time Sodium Level 136 Potassium Level 3.0 L Chloride Level 95 L Carbon Dioxide 30 Level Anion Gap 11 Blood Urea 29 H Nitrogen Creatinine 3.06 H Est Glomerular Filtrat Rate mL/min Glucose Level 103 Calcium Level 8.9 Total Bilirubin 3.8 H Direct Bilirubin 3.10 H Indirect 0.7 Bilirubin Aspartate Amino 127 H Transf (AST/SGOT) Alanine 63 Aminotransferase (ALT/SGPT) Alkaline 402 H Phosphatase Troponin I 0.134 *H Total Protein 6.3 Albumin 2.9 L Blood Gas Blood arterial Specimen Source Arterial Blood 01/12/2019 11:30: Date Drawn 17 PM Arterial Blood pH 7.432 (Temp corrected) Arterial Blood 46.7 H pCO2 (Temp correct) Arterial Blood 70.1 L pO2 (Temp corrected) Arterial Blood 30.4 H HCO3 Arterial Blood 5.4 H Base Excess Arterial Blood 93.7 L Oxygen Saturation Jaiden Test N/A Arterial Blood Right Brachial Gas Puncture Site Arterial 0.9 Blood Carboxyhemo globin Arterial Blood 0 Methemoglobin Blood Gas A-a O2 110.7 H Differential Oxyhemoglobin 92.9 L Percent Blood Gas 37.0 Temperature Blood Gas NASAL CANNULA Modality FiO2 33.0 Blood Gas UP Notified Whom Blood Gas 01/12/2019 11:41: Notified Time 00 PM POC Venous 1.9 Lactate Lactic Acid Level 1.6 Test 01/13/19 05:31 01/13/19 09:26 White Blood Count 26.6 H Red Blood Count 3.46 L Hemoglobin 10.7 L Hematocrit 33.5 L Mean Corpuscular 96.8 Volume Mean Corpuscular 30.9 Hemoglobin Mean Corpuscular 31.9 L Hemoglobin Concen t Red Cell 14.7 H Distribution Width Platelet Count 130 L Mean Platelet 12.4 H Volume Immature 0.900 H Granulocytes % Neutrophils % Segmented 74 Neutrophils % (Manual) Band Neutrophils 17 H % (Manual) Lymphocytes % Lymphocytes % 6 L (Manual) Monocytes % Monocytes % 3 (Manual) Eosinophils % Basophils % Nucleated Red 0.1 H Blood Cells % Immature 0.240 H Granulocytes # Neutrophils # Neutrophils # 20.9 H (Manual) Band Neutrophils 4.5 H # Lymphocytes 1.5 (Manual) Lymphocytes # Monocytes # Monocytes # 0.7 (Manual) Eosinophils # Basophils # Nucleated Red Blood Cells # Platelet Estimate DECREASED Giant Platelets 4 H Polychromasia 1+ Anisocytosis 1+ Microcytosis 1+ Macrocytosis 1+ Target Cells 1+ Stomatocytes 1+ Sodium Level 136 Potassium Level 3.4 L Chloride Level 97 Carbon Dioxide 31 Level Anion Gap 8 Blood Urea 33 H Nitrogen Creatinine 3.21 H Est Glomerular Filtrat Rate mL/min Glucose Level 89 Hemoglobin A1c 4.7 Lactic Acid Level 1.4 Calcium Level 8.5 Magnesium Level 2.1 Total Bilirubin 3.6 H Direct Bilirubin 3.10 H Indirect 0.5 Bilirubin Aspartate Amino 108 H Transf (AST/SGOT) Alanine 58 Aminotransferase (ALT/SGPT) Alkaline 314 H Phosphatase Creatine Kinase < 20 L < 20 L Creatine Kinase Index Creatinine Kinase 0.51 0.66 MB (Mass) Troponin I 0.119 0.113 Total Protein 5.5 L Albumin 2.4 L Globulin 3.10 Albumin/Globulin 0.77 Ratio Triglycerides 348 H Level Cholesterol Level 99 L LDL Cholesterol, 17 Calculated HDL Cholesterol 12 L Cholesterol/HDL 8.2 Ratio Procalcitonin 9.65 H Thyroid 0.147 L Stimulating Hormone (TSH) Subjective 24 Hr Interval Summary Respiratory: shortness of breath Exam/Review of Systems Exam Vitals Vital Signs Date Temp Pulse Resp B/P (MAP) Pulse Ox O2 O2 Flow FiO2 Time Delivery Rate 01/13/19 88 11:00 01/13/19 Nasal 3.0 11:00 Cannula 01/13/19 98.7 18 119/55 91 10:44 (76) Constitutional: alert, oriented Respiratory: clear to auscultation Cardiovascular: regular rate and rhythm Gastrointestinal: soft; No distended Musculoskeletal: nl extremities to inspection Results Results 24hrs Laboratory Tests Test 01/12/19 22:46 01/12/19 23:30 01/12/19 23:55 01/13/19 02:24 White Blood Count 26.8 #H Red Blood Count 3.88 #L Hemoglobin 11.9 #L Hematocrit 36.9 #L Mean Corpuscular 95.1 Volume Mean Corpuscular 30.7 Hemoglobin Mean Corpuscular 32.2 Hemoglobin Concen t Red Cell 14.6 H Distribution Width Platelet Count 136 #L Mean Platelet 10.9 H Volume Immature 0.800 H Granulocytes % Neutrophils % Segmented 82 H Neutrophils % (Manual) Band Neutrophils 13 H % (Manual) Lymphocytes % Lymphocytes % 1 L (Manual) Reactive 1 H Lymphocytes % (Manual) Monocytes % Monocytes % 1 (Manual) Eosinophils % Eosinophils % 2 (Manual) Basophils % Nucleated Red 0.0 Blood Cells % Immature 0.210 H Granulocytes # Neutrophils # Neutrophils # 22.9 H (Manual) Band Neutrophils 3.4 H # Lymphocytes 0.2 L (Manual) Lymphocytes # Reactive 0.2 H Lymphocytes # Monocytes # Monocytes # 0.2 L (Manual) Eosinophils # Basophils # Nucleated Red Blood Cells # Platelet Estimate DECREASED Giant Platelets 1 H Polychromasia 1+ Anisocytosis 1+ Macrocytosis 1+ Target Cells 1+ Prothrombin Time 15.1 H Prothrombin Time 1.2 Ratio INR International 1.18 Normalized Ratio Activated 36.9 H Partial Thrombopl ast Time Sodium Level 136 Potassium Level 3.0 L Chloride Level 95 L Carbon Dioxide 30 Level Anion Gap 11 Blood Urea 29 H Nitrogen Creatinine 3.06 H Est Glomerular Filtrat Rate mL/min Glucose Level 103 Calcium Level 8.9 Total Bilirubin 3.8 H Direct Bilirubin 3.10 H Indirect 0.7 Bilirubin Aspartate Amino 127 H Transf (AST/SGOT) Alanine 63 Aminotransferase (ALT/SGPT) Alkaline 402 H Phosphatase Troponin I 0.134 *H Total Protein 6.3 Albumin 2.9 L Blood Gas Blood arterial Specimen Source Arterial Blood 01/12/2019 11:30: Date Drawn 17 PM Arterial Blood pH 7.432 (Temp corrected) Arterial Blood 46.7 H pCO2 (Temp correct) Arterial Blood 70.1 L pO2 (Temp corrected) Arterial Blood 30.4 H HCO3 Arterial Blood 5.4 H Base Excess Arterial Blood 93.7 L Oxygen Saturation Jaiden Test N/A Arterial Blood Right Brachial Gas Puncture Site Arterial 0.9 Blood Carboxyhemo globin Arterial Blood 0 Methemoglobin Blood Gas A-a O2 110.7 H Differential Oxyhemoglobin 92.9 L Percent Blood Gas 37.0 Temperature Blood Gas NASAL CANNULA Modality FiO2 33.0 Blood Gas UP Notified Whom Blood Gas 01/12/2019 11:41: Notified Time 00 PM POC Venous 1.9 Lactate Lactic Acid Level 1.6 Test 01/13/19 05:31 01/13/19 09:26 White Blood Count 26.6 H Red Blood Count 3.46 L Hemoglobin 10.7 L Hematocrit 33.5 L Mean Corpuscular 96.8 Volume Mean Corpuscular 30.9 Hemoglobin Mean Corpuscular 31.9 L Hemoglobin Concen t Red Cell 14.7 H Distribution Width Platelet Count 130 L Mean Platelet 12.4 H Volume Immature 0.900 H Granulocytes % Neutrophils % Segmented 74 Neutrophils % (Manual) Band Neutrophils 17 H % (Manual) Lymphocytes % Lymphocytes % 6 L (Manual) Monocytes % Monocytes % 3 (Manual) Eosinophils % Basophils % Nucleated Red 0.1 H Blood Cells % Immature 0.240 H Granulocytes # Neutrophils # Neutrophils # 20.9 H (Manual) Band Neutrophils 4.5 H # Lymphocytes 1.5 (Manual) Lymphocytes # Monocytes # Monocytes # 0.7 (Manual) Eosinophils # Basophils # Nucleated Red Blood Cells # Platelet Estimate DECREASED Giant Platelets 4 H Polychromasia 1+ Anisocytosis 1+ Microcytosis 1+ Macrocytosis 1+ Target Cells 1+ Stomatocytes 1+ Sodium Level 136 Potassium Level 3.4 L Chloride Level 97 Carbon Dioxide 31 Level Anion Gap 8 Blood Urea 33 H Nitrogen Creatinine 3.21 H Est Glomerular Filtrat Rate mL/min Glucose Level 89 Hemoglobin A1c 4.7 Lactic Acid Level 1.4 Calcium Level 8.5 Magnesium Level 2.1 Total Bilirubin 3.6 H Direct Bilirubin 3.10 H Indirect 0.5 Bilirubin Aspartate Amino 108 H Transf (AST/SGOT) Alanine 58 Aminotransferase (ALT/SGPT) Alkaline 314 H Phosphatase Creatine Kinase < 20 L < 20 L Creatine Kinase Index Creatinine Kinase 0.51 0.66 MB (Mass) Troponin I 0.119 0.113 Total Protein 5.5 L Albumin 2.4 L Globulin 3.10 Albumin/Globulin 0.77 Ratio Triglycerides 348 H Level Cholesterol Level 99 L LDL Cholesterol, 17 Calculated HDL Cholesterol 12 L Cholesterol/HDL 8.2 Ratio Procalcitonin 9.65 H Thyroid 0.147 L Stimulating Hormone (TSH) Medications Medication Current Medications Vancomycin HCl (Vanco Iv Per Pharmacy) VANCOMYCIN PER PHARMACY PER PROTOCOL XX ; Start 01/13/19 at 02:00 IV Flush (NS 3 ml) 3 ml PER PROTOCOL IV ; Start 01/13/19 at 02:00 Acetaminophen (Tylenol Tab) 650 mg Q6H PRN PO .PAIN 1-3 OR TEMP; Start 01/13/19 at 02:00 Acetaminophen/ Hydrocodone Bitart ([place] (5/325)) 1 tab Q6H PRN PO .PAIN 4-6 Last administered on 01/13/19at 07:06; Admin Dose 1 TAB; Start 01/13/19 at 02:00 Docusate Sodium (Colace) 100 mg Q12H PRN PO .CONSTIPATION; Start 01/13/19 at 02:00 Bisacodyl (Dulcolax) 5 mg DAILY PRN PO .CONSTIPATION; Start 01/13/19 at 02:00 Pantoprazole (Protonix Tab) 40 mg DAILY@06 PO Last administered on 01/13/19at 07:06; Admin Dose 40 MG; Start 01/13/19 at 06:00 Heparin Sodium (Porcine) (Heparin (5000 Units/1ml)) 5,000 unit Q8 SC Last administered on 01/13/19at 13:23; Admin Dose 5,000 UNIT; Start 01/13/19 at 06:00 Atorvastatin Calcium (Lipitor) 40 mg DAILY@21 PO ; Start 01/13/19 at 21:00 Carvedilol (Coreg) 12.5 mg BID PO ; Start 01/13/19 at 09:00 Clonidine (Catapres) 0.2 mg TID PO Last administered on 01/13/19at 13:28; Admin Dose 0.2 MG; Start 01/13/19 at 09:00 Doxazosin Mesylate (Cardura) 4 mg DAILY@21 PO ; Start 01/13/19 at 21:00 Ferrous Sulfate (Ferrous Sulfate (Ec)) 325 mg BID PO Last administered on 01/13/19at 11:07; Admin Dose 325 MG; Start 01/13/19 at 09:00 Folic Acid (Folic Acid) 1 mg DAILY PO Last administered on 01/13/19at 11:05; Admin Dose 1 MG; Start 01/13/19 at 09:00 Insulin Glargine (Lantus) 20 units QHS SC ; Start 01/13/19 at 21:00 Nifedipine (Procardia Xl) 60 mg BID PO ; Start 01/13/19 at 09:00 Piperacillin Sod/ Tazobactam Sod 50 ml @ 100 mls/hr Q8 IVPB Last administered on 01/13/19at 13:17; Admin Dose 100 MLS/HR; Start 01/13/19 at 06:00 Aspirin (Aspirin) 81 mg DAILY PO Last administered on 01/13/19at 11:17; Admin Dose 81 MG; Start 01/13/19 at 11:00 ZAK PAIGE January 13, 2019 15:12
[2019-01-13] MEDS ORDERED: GLUCAGON 1 MG INJ IM PRN (15:30)
[2019-01-13] MEDS ORDERED: GLUCOSE GEL 15 GRAM TUBE BUCCAL PRN (15:30)
[2019-01-13] MEDS ORDERED: GLUCOSE GEL 15 GRAM TUBE PO PRN ×2 (15:30)
[2019-01-13] MEDS ORDERED: DEXTROSE 50% 50 ML SYRINGE IV PRN ×2 (15:30)
--- NOTE | 2019-01-13 16:19 | CONS ---
DATE OF ADMISSION: 01/13/2019 DATE OF CONSULTATION: TYPE OF CONSULTATION: Renal. REASON FOR ADMISSION: Shortness of breath. HISTORY OF PRESENTING ILLNESS: This is a 73-year-old male with a past medical history of hypertensio n, hyperlipidemia, coronary artery disease status post coronary artery bypass, presented to the emerg ency department complaining of dyspnea and generalized weakness for 1 to 2 days. According to the shanta berkowitz, he has been on dialysis for the last 2 years and goes to hemodialysis Wednesday, and . His last hemodialysis was yesterday. After dialysis, he started noticing that he is having more shortness of breath and cough. He was also having feeling weakness. He was also having some ch ronic low back pain and presented to the emergency department for further evaluation. On arrival to ED, vital signs show temperature 98.8, pulse 85, respirations 30, blood pressure 106/38. The patient had a chest x-ray that showed low lung volumes, cardiomegaly, large left airspace pneumonia. Labs s howed white count of 26.8, hemoglobin 11.9, platelet count 136, potassium 3.0, BUN of 29, creatinine 3.06. The patient received vancomycin, Zosyn, aspirin and NS and was admitted for further management . PAST MEDICAL HISTORY: 1. Hypertension. 2. Coronary artery disease status post coronary artery bypass. 3. End-stage renal disease on hemodialysis for the last 2 years. 4. Hypertension. 5. Diabetes. 6. Dyslipidemia. ALLERGIES: NONE. PAST SURGICAL HISTORY: Status post CABG and left AV fistula. MEDICATIONS TAKING AT HOME: 1. Amiodarone 200 q.p.m. 2. Hydralazine 50 p.o. t.i.d. 3. Lovastatin 10. 4. Aspirin 81. 5. Ibuprofen. 6. Zolpidem. 7. Cholecalciferol. 8. Folic acid. 9. Multivitamin. SOCIAL HISTORY: No history of smoking, alcohol or any drug use. REVIEW OF SYSTEMS: The patient complains of shortness of breath. Denies any chest pain. Complains of some weakness. Denies any headache, any blurry vision. Has chronic low back pain. Denies any ab dominal pain, nausea, vomiting, diarrhea. PHYSICAL EXAMINATION: VITAL SIGNS: Currently, his blood pressure of 119/55, afebrile, pulse 87, respirations 18, saturatin g 91% to 97% on 4 liters oxygen. GENERAL: The patient is cachectic, very tired ____ looking, appears very weak, little tachypneic. NECK: JVD is not appreciated. LUNGS: Crackles present on the left side. HEART: Regular rate and rhythm. ABDOMEN: Soft, nontender, nondistended, positive normoactive bowel sounds. EXTREMITIES: Trace edema. The patient had left graft with AV fistula with bruit and thrill. LABORATORY DATA: Show a white count of 26.6, hemoglobin 11.9, platelet count of 136. Potassium of 3 .4, sodium 136, BUN 33, creatinine 3.31. Total bilirubin 3.6, direct 3.110, AST 108, alkaline phosph atase 314. Triglycerides 348. TSH 0.147. Procalcitonin 9.65. ABG showed pH of 7.4, pCO2 of 46, pO 2 of 70, bicarbonate of 30. DIAGNOSTIC DATA: Chest x-ray showed low lung volumes, cardiomegaly, large left airspace pneumonia. Liver ultrasound shows enlarged liver, thickened gallbladder and sludge. ASSESSMENT AND PLAN: This is a 73-year-old male who presented with: 1. Shortness of breath, cough, weakness, leukocytosis of 26.8, likely secondary to pneumonia. 2. Sepsis, likely secondary to pneumonia. 3. Minimally elevated troponin, could be secondary to chronic kidney disease. 4. Hypokalemia. 5. Leukocytosis. 6. End-stage renal disease on hemodialysis. 7. Abnormal liver function tests. 8. Impending respiratory failure, likely secondary to pneumonia. 9. Hypertension, currently normotensive. 10. Dyslipidemia. 11. Diabetes. PLAN: At this period of time, the patient is admitted to tele. The patient is started on broad spec trum IV antibiotics, vancomycin and Zosyn. The patient had already received some fluid in the ER. I would recommend holding the blood pressure medicines currently. The patient will be pancultured. I D should be consulted. The patient will likely need hemodialysis tomorrow. Rest of the treatment wi ll depend on the patient's hospitalization course. Dictated By: JUAN CHOWDHURY/NUNO Conf#: [id number] DID#: [id number] CC: REINIER GIBSON MD; EVELINE PEREIRA MD;*[facility]*
[2019-01-13] MEDS: INSULIN ASPART [NOVOLOG] 3 ML PEN SC SCH ×2 (17:55→20:58)
[2019-01-13] MEDS: INSULIN GLARGINE [LANTus] (100 UNITS/ML) SYG SC SCH (21:00)
[2019-01-13] MEDS: DOXAZOSIN 4 MG TAB PO SCH (21:00)
[2019-01-13] MEDS: ATORVASTATIN 40 MG TAB PO SCH (21:02)
[2019-01-13] MEDS ORDERED: ZOLPIDEM 5 MG TAB PO PRN (23:00)
[2019-01-14] VITALS (26 sets, daily range): BP systolic 86–144; BP diastolic 39–78; PULSE 77–102; RESP 18–22
[2019-01-14] MEDS: ACCU-CHEK XX SCH (02:06)
[2019-01-14] MEDS: PANTOPRAZOLE (EC) 40 MG TAB PO SCH (06:01)
[2019-01-14] MEDS: PIPER-TAZO 2.25 GM (PMX) 50 ML IVPB SCH ×3 (06:01→22:02)
[2019-01-14] MEDS: HEPARIN 5,000 UNIT/1 ML VIAL SC SCH ×3 (06:14→22:05)
[2019-01-14] MEDS: INSULIN ASPART [NOVOLOG] 3 ML PEN SC SCH ×4 (07:55→21:00)
[2019-01-14] MEDS: NIFEdipine (XL) 60 MG TAB PO SCH ×2 (08:11→21:00)
[2019-01-14] MEDS: ASPIRIN 81 MG TAB PO SCH (09:00)
[2019-01-14] MEDS: FERROUS SULFATE (EC) 325 MG TAB PO SCH ×2 (09:00→21:00)
[2019-01-14] MEDS: FOLIC ACID 1 MG TAB PO SCH (09:00)
--- NOTE | 2019-01-14 10:19 | CONS ---
Assessment/Plan Assessment/Plan Assessment/Plan (Daily) Sepsis secondary to pneumonia Minimally elevated troponin, trending down CAD with history of CABG End-stage renal disease on hemodialysis Diabetes Hypertension Dyslipidemia -Patient presents with symptoms of fatigue, chills and shortness of breath. Found to have pneumonia on chest x-ray as well as leukocytosis and minimally elevated troponins which are currently trending down. -ECG with no significant seeming abnormalities. Elevation likely secondary to sepsis -Continue aspirin therapy, continue statin therapy, continue beta-farrukh as heart rate and blood pressure permits Consultation Date/Type/Reason Admit Date/Time January 13, 2019 at 00:07 Initial Consult Date Type of Consult Cardiology Date/Time of Note DATE: 01/14/19 TIME: :19 24 HR Interval Summary Free Text/Dictation the patient on HD Exam/Review of Systems Vital Signs Vitals Vital Signs Date Temp Pulse Resp B/P (MAP) Pulse Ox O2 O2 Flow FiO2 Time Delivery Rate 01/14/19 88 20 100/50 92 Nasal 4.0 08:45 (67) Cannula 01/14/19 98.7 07:31 Intake and Output 01/13/19 01/13/19 01/14/19 1515:00 23:00 07:00 IntakeIntake Total 50 ml 200 ml 100 ml BalanceBalance 50 ml 200 ml 100 ml Labs Result Diagram: 01/14/19 0610 01/14/19 0610 Results 24hrs Laboratory Tests Test 01/13/19 17:17 01/13/19 20:55 01/13/19 22:59 01/14/19 02:05 Bedside Glucose 96 80 126 122 Test 01/14/19 06:09 01/14/19 06:10 01/14/19 07:54 Hepatitis B Surface NEGATIVE Antigen Hepatitis B Surface NEGATIVE Antibody White Blood Count 29.1 H Red Blood Count 3.36 L Hemoglobin 10.4 L Hematocrit 32.3 L Mean Corpuscular 96.1 Volume Mean Corpuscular 31.0 Hemoglobin Mean Corpuscular 32.2 Hemoglobin Concent Red Cell Distribution 14.5 Width Platelet Count 137 L Mean Platelet Volume 11.6 H Immature Granulocytes 1.400 H % Neutrophils % Segmented Neutrophils 87 H % (Manual) Band Neutrophils % 8 H (Manual) Lymphocytes % Lymphocytes % 1 L (Manual) Reactive Lymphocytes 1 H % (Manual) Monocytes % Monocytes % (Manual) 3 Eosinophils % Basophils % Nucleated Red Blood 0.0 Cells % Immature Granulocytes 0.420 H # Neutrophils # Neutrophils # 26.0 H (Manual) Band Neutrophils # 2.3 H Lymphocytes (Manual) 0.2 L Lymphocytes # Reactive Lymphocytes 0.2 H # Monocytes # Monocytes # (Manual) 0.8 Eosinophils # Basophils # Nucleated Red Blood Cells # Platelet Estimate DECREASED Giant Platelets 1 H Polychromasia 1+ Anisocytosis 1+ Macrocytosis 1+ Sodium Level 135 Potassium Level 3.8 Chloride Level 97 Carbon Dioxide Level 28 Anion Gap 10 Blood Urea Nitrogen 43 H Creatinine 4.65 #H Est Glomerular Filtrat Rate mL/min Glucose Level 131 # Calcium Level 8.8 Magnesium Level 2.2 Total Bilirubin 5.0 H Direct Bilirubin 4.40 #H Indirect Bilirubin 0.6 Aspartate Amino 97 H Transf (AST/SGOT) Alanine 58 Aminotransferase (ALT /SGPT) Alkaline Phosphatase 306 H Total Protein 5.3 L Albumin 2.4 L Globulin 2.90 Albumin/Globulin 0.82 Ratio Bedside Glucose 136 Medications Medications Current Medications Vancomycin HCl (Vanco Iv Per Pharmacy) VANCOMYCIN PER PHARMACY PER PROTOCOL XX ; Start 01/13/19 at 02:00 IV Flush (NS 3 ml) 3 ml PER PROTOCOL IV ; Start 01/13/19 at 02:00 Acetaminophen (Tylenol Tab) 650 mg Q6H PRN PO .PAIN 1-3 OR TEMP; Start 01/13/19 at 02:00 Acetaminophen/ Hydrocodone Bitart ([place] (5/325)) 1 tab Q6H PRN PO .PAIN 4-6 Last administered on 01/13/19at 15:16; Admin Dose 1 TAB; Start 01/13/19 at 02:00 Docusate Sodium (Colace) 100 mg Q12H PRN PO .CONSTIPATION; Start 01/13/19 at 02:00 Bisacodyl (Dulcolax) 5 mg DAILY PRN PO .CONSTIPATION; Start 01/13/19 at 02:00 Pantoprazole (Protonix Tab) 40 mg DAILY@06 PO Last administered on 01/14/19at 06:01; Admin Dose 40 MG; Start 01/13/19 at 06:00 Heparin Sodium (Porcine) (Heparin (5000 Units/1ml)) 5,000 unit Q8 SC Last administered on 01/14/19at 06:14; Admin Dose 5,000 UNIT; Start 01/13/19 at 06:00 Atorvastatin Calcium (Lipitor) 40 mg DAILY@21 PO Last administered on 01/13/19at 21:02; Admin Dose 40 MG; Start 01/13/19 at 21:00 Carvedilol (Coreg) 12.5 mg BID PO ; Start 01/13/19 at 09:00 Clonidine (Catapres) 0.2 mg TID PO Last administered on 01/13/19at 13:28; Admin Dose 0.2 MG; Start 01/13/19 at 09:00 Doxazosin Mesylate (Cardura) 4 mg DAILY@21 PO ; Start 01/13/19 at 21:00 Ferrous Sulfate (Ferrous Sulfate (Ec)) 325 mg BID PO Last administered on 01/13/19at 21:02; Admin Dose 325 MG; Start 01/13/19 at 09:00 Folic Acid (Folic Acid) 1 mg DAILY PO Last administered on 01/13/19at 11:05; Admin Dose 1 MG; Start 01/13/19 at 09:00 Insulin Glargine (Lantus) 20 units QHS SC ; Start 01/13/19 at 21:00 Nifedipine (Procardia Xl) 60 mg BID PO ; Start 01/13/19 at 09:00 Piperacillin Sod/ Tazobactam Sod 50 ml @ 100 mls/hr Q8 IVPB Last administered on 01/14/19at 06:01; Admin Dose 100 MLS/HR; Start 01/13/19 at 06:00 Aspirin (Aspirin) 81 mg DAILY PO Last administered on 01/13/19at 11:17; Admin Dose 81 MG; Start 01/13/19 at 11:00 Diagnostic Test (Pha) (Accu-Chek) 1 ea 02 XX Last administered on 01/14/19at 02:06; Admin Dose 1 EA; Start 01/14/19 at 02:00 Insulin Aspart (Novolog Insulin Pen) NOVOLOG *MILD* ALGORITHM WITH MEALS BEDTIME SC ; Start 01/13/19 at 17:55 Miscellaneous Information 1 ea NOTE XX ; Start 01/13/19 at 15:30 Glucose (Glutose) 15 gm Q15M PRN PO DECREASED GLUCOSE; Start 01/13/19 at 15:30 Glucose (Glutose) 22.5 gm Q15M PRN PO DECREASED GLUCOSE; Start 01/13/19 at 15:30 Dextrose (D50w Syringe) 25 ml Q15M PRN IV DECREASED GLUCOSE; Start 01/13/19 at 15:30 Dextrose (D50w Syringe) 50 ml Q15M PRN IV DECREASED GLUCOSE; Start 01/13/19 at 15:30 Glucagon (Glucagen) 1 mg Q15M PRN IM DECREASED GLUCOSE; Start 01/13/19 at 15:30 Glucose (Glutose) 15 gm Q15M PRN BUCCAL DECREASED GLUCOSE; Start 01/13/19 at 15:30 Zolpidem Tartrate (Ambien) 10 mg HS PRN PO INSOMNIA Last administered on 01/13/19at 22:56; Admin Dose 10 MG; Start 01/13/19 at 23:00 CHARISSA KOVACS MD Jan 14, 2019 10:19
--- NOTE | 2019-01-14 10:48 | CONS ---
Assessment/Plan Assessment/Plan Hospital Course (Demo Recall) 1. End-stage renal disease on hemodialysis. hemodialysis Wednesday, and Wednesday via left arm AV fistula 2. Sepsis, likely secondary to pneumonia. 3. Minimally elevated troponin, could be secondary to chronic kidney disease. 4. Hypokalemia, resolved. 5. Leukocytosis, worse. 6. Shortness of breath, cough, weakness, leukocytosis of 26.8, likely secondary to pneumonia. 7. Abnormal liver function tests. 8. Impending respiratory failure, likely secondary to pneumonia. 9. Hypertension, currently normotensive. 10. Dyslipidemia. 11. Diabetes. 12. Anemia chronic disease Assessment/Plan (Daily) - tele. -holding the blood pressure medicines currently. - pancultured. -HD today -avoid nephrotoxic drugs -Start Epogen after HD Consultation Date/Type/Reason Admit Date/Time January 13, 2019 at 00:07 Initial Consult Date 01/13/2019 Type of Consult nephrology Reason for Consultation Dr Saeed Date/Time of Note DATE: 01/14/19 TIME: 10:46 24 HR Interval Summary Free Text/Dictation tired Exam/Review of Systems Exam Vitals Vital Signs Date Temp Pulse Resp B/P (MAP) Pulse Ox O2 O2 Flow FiO2 Time Delivery Rate 01/14/19 88 20 100/50 92 Nasal 4.0 08:45 (67) Cannula 01/14/19 98.7 07:31 Intake and Output 01/13/19 01/13/19 01/14/19 1515:00 23:00 07:00 IntakeIntake Total 50 ml 200 ml 100 ml BalanceBalance 50 ml 200 ml 100 ml Exam left AV fistula Constitutional: alert, oriented Head: normocephalic ENMT: nl external ears & nose Neck: supple Respiratory: crackles/rales, diminished breath sounds Cardiovascular: regular rate and rhythm Musculoskeletal: muscle weakness Results Result Diagram: 01/14/19 0610 01/14/19 0610 Results 24hrs Laboratory Tests Test 01/13/19 17:17 01/13/19 20:55 01/13/19 22:59 01/14/19 02:05 Bedside Glucose 96 80 126 122 Test 01/14/19 06:09 01/14/19 06:10 01/14/19 07:54 Hepatitis B Surface NEGATIVE Antigen Hepatitis B Surface NEGATIVE Antibody White Blood Count 29.1 H Red Blood Count 3.36 L Hemoglobin 10.4 L Hematocrit 32.3 L Mean Corpuscular 96.1 Volume Mean Corpuscular 31.0 Hemoglobin Mean Corpuscular 32.2 Hemoglobin Concent Red Cell Distribution 14.5 Width Platelet Count 137 L Mean Platelet Volume 11.6 H Immature Granulocytes 1.400 H % Neutrophils % Segmented Neutrophils 87 H % (Manual) Band Neutrophils % 8 H (Manual) Lymphocytes % Lymphocytes % 1 L (Manual) Reactive Lymphocytes 1 H % (Manual) Monocytes % Monocytes % (Manual) 3 Eosinophils % Basophils % Nucleated Red Blood 0.0 Cells % Immature Granulocytes 0.420 H # Neutrophils # Neutrophils # 26.0 H (Manual) Band Neutrophils # 2.3 H Lymphocytes (Manual) 0.2 L Lymphocytes # Reactive Lymphocytes 0.2 H # Monocytes # Monocytes # (Manual) 0.8 Eosinophils # Basophils # Nucleated Red Blood Cells # Platelet Estimate DECREASED Giant Platelets 1 H Polychromasia 1+ Anisocytosis 1+ Macrocytosis 1+ Sodium Level 135 Potassium Level 3.8 Chloride Level 97 Carbon Dioxide Level 28 Anion Gap 10 Blood Urea Nitrogen 43 H Creatinine 4.65 #H Est Glomerular Filtrat Rate mL/min Glucose Level 131 # Calcium Level 8.8 Magnesium Level 2.2 Total Bilirubin 5.0 H Direct Bilirubin 4.40 #H Indirect Bilirubin 0.6 Aspartate Amino 97 H Transf (AST/SGOT) Alanine 58 Aminotransferase (ALT /SGPT) Alkaline Phosphatase 306 H Total Protein 5.3 L Albumin 2.4 L Globulin 2.90 Albumin/Globulin 0.82 Ratio Bedside Glucose 136 Medications Medication Current Medications Vancomycin HCl (Vanco Iv Per Pharmacy) VANCOMYCIN PER PHARMACY PER PROTOCOL XX ; Start 01/13/19 at 02:00 IV Flush (NS 3 ml) 3 ml PER PROTOCOL IV ; Start 01/13/19 at 02:00 Acetaminophen (Tylenol Tab) 650 mg Q6H PRN PO .PAIN 1-3 OR TEMP; Start 01/13/19 at 02:00 Acetaminophen/ Hydrocodone Bitart ([place] (5/325)) 1 tab Q6H PRN PO .PAIN 4-6 Last administered on 01/13/19at 15:16; Admin Dose 1 TAB; Start 01/13/19 at 02:00 Docusate Sodium (Colace) 100 mg Q12H PRN PO .CONSTIPATION; Start 01/13/19 at 02:00 Bisacodyl (Dulcolax) 5 mg DAILY PRN PO .CONSTIPATION; Start 01/13/19 at 02:00 Pantoprazole (Protonix Tab) 40 mg DAILY@06 PO Last administered on 01/14/19 06:01; Admin Dose 40 MG; Start 01/13/19 at 06:00 Heparin Sodium (Porcine) (Heparin (5000 Units/1ml)) 5,000 unit Q8 SC Last administered on 01/14/19 06:14; Admin Dose 5,000 UNIT; Start 01/13/19 at 06:00 Atorvastatin Calcium (Lipitor) 40 mg DAILY@21 PO Last administered on 01/13/19 21:02; Admin Dose 40 MG; Start 01/13/19 at 21:00 Carvedilol (Coreg) 12.5 mg BID PO ; Start 01/13/19 at 09:00 Clonidine (Catapres) 0.2 mg TID PO Last administered on 01/13/19at 13:28; Admin Dose 0.2 MG; Start 01/13/19 at 09:00 Doxazosin Mesylate (Cardura) 4 mg DAILY@21 PO ; Start 01/13/19 at 21:00 Ferrous Sulfate (Ferrous Sulfate (Ec)) 325 mg BID PO Last administered on 01/13/19 21:02; Admin Dose 325 MG; Start 01/13/19 at 09:00 Folic Acid (Folic Acid) 1 mg DAILY PO Last administered on 01/13/19 11:05; Admin Dose 1 MG; Start 01/13/19 at 09:00 Insulin Glargine (Lantus) 20 units QHS SC ; Start 01/13/19 at 21:00 Nifedipine (Procardia Xl) 60 mg BID PO ; Start 01/13/19 at 09:00 Piperacillin Sod/ Tazobactam Sod 50 ml @ 100 mls/hr Q8 IVPB Last administered on 01/14/19 06:01; Admin Dose 100 MLS/HR; Start 01/13/19 at 06:00 Aspirin (Aspirin) 81 mg DAILY PO Last administered on 01/13/19 11:17; Admin Dose 81 MG; Start 01/13/19 at 11:00 Diagnostic Test (Pha) (Accu-Chek) 1 ea 02 XX Last administered on 01/14/19at 02:06; Admin Dose 1 EA; Start 01/14/19 at 02:00 Insulin Aspart (Novolog Insulin Pen) NOVOLOG *MILD* ALGORITHM WITH MEALS BEDTIME SC ; Start 01/13/19 at 17:55 Miscellaneous Information 1 ea NOTE XX ; Start 01/13/19 at 15:30 Glucose (Glutose) 15 gm Q15M PRN PO DECREASED GLUCOSE; Start 01/13/19 at 15:30 Glucose (Glutose) 22.5 gm Q15M PRN PO DECREASED GLUCOSE; Start 01/13/19 at 15:30 Dextrose (D50w Syringe) 25 ml Q15M PRN IV DECREASED GLUCOSE; Start 01/13/19 at 15:30 Dextrose (D50w Syringe) 50 ml Q15M PRN IV DECREASED GLUCOSE; Start 01/13/19 at 15:30 Glucagon (Glucagen) 1 mg Q15M PRN IM DECREASED GLUCOSE; Start 01/13/19 at 15:30 Glucose (Glutose) 15 gm Q15M PRN BUCCAL DECREASED GLUCOSE; Start 01/13/19 at 15:30 Zolpidem Tartrate (Ambien) 10 mg HS PRN PO INSOMNIA Last administered on 01/13/19at 22:56; Admin Dose 10 MG; Start 01/13/19 at 23:00 IVONNE BHAT Jan 14, 2019 10:48
[2019-01-14] MEDS: EPOETIN ALFA-EPBX (ESRD) 4,000 UNIT/ML VIAL SC SCH (17:52)
[2019-01-14] MEDS ORDERED: FUROSEMIDE 40 MG INJ IV ONE (19:00)
[2019-01-14] MEDS ORDERED: LORAZEPAM 2 MG INJ IV ONE (19:00)
[2019-01-14] MEDS ORDERED: LEVALBUTEROL (NEB) 1.25 MG/0.5 ML AMP HHN PRN (19:00)
[2019-01-14] MEDS: LEVALBUTEROL (NEB) 0.63 MG/3 ML AMP HHN SCH (19:54)
[2019-01-14] MEDS: IPRATROPIUM (NEB) 0.5 MG/2.5 ML AMP HHN SCH (19:54)
--- NOTE | 2019-01-14 20:31 | PN ---
Date/Time of Note Date/Time of Note DATE: 01/14/19 TIME: 20:25 Assessment/Plan VTE Prophylaxis [place] [facility] [place] risk: 3 SCD applied ([place] [facility] [place] No SCD contraindicated: low risk/ambulating Pharmacological prophylaxis: NA/contraindicated Pharm contraindication: other (coagulopathy) Lines/Catheters IV [facility] Type [facility]from [facility] [place] Assessment/Plan Hospital Course 1. Sepsis secondary to underlying healthcare associated pneumonia possibly from dialysis center - Chest x-ray shows a left-sided pneumonia. - continue abx 2. Healthcare associated pneumonia: Vancomycin, Zosyn, await culture results - continue abx - f/u cultures 3. Hypoxia: - Secondary likely to underlying pneumonia. - breathing tx added - bipap prn - CXR/ABG worse - continue HD - will get pulmonary consultation. 4. NSTEMI type II secondary to demand - Echo with preserved EF - troponin marker downward tended - primary school teacher librarian following 5 Coronary artery disease: History of CABG - Continue home medications 6. End-stage renal disease - Patient receives dialysis Wednesday, and Wednesday - f/u nephro recs 7. Diabetes mellitus - A1c 4.7 - Continue insulin regimen 8. Hypertension - Resume home meds as needed, BP currently normal to low 9. Lower back pain with left leg weakness: Possibly resulting in sciatica. - Continue PT once more stable DISPO.PLAN: with worse breathing. trigonometry tutor consulted. continue with b reathing tx. Continue to monitor Discussed plan of care with Dr. Ray Result Diagram: 01/14/19 0610 01/14/19 0610 Results 24hrs Laboratory Tests Test 01/13/19 20:55 01/13/19 22:59 01/14/19 02:05 01/14/19 06:09 Bedside Glucose 80 126 122 Hepatitis B NEGATIVE Surface Antigen Hepatitis B NEGATIVE Surface Antibody Test 01/14/19 06:10 01/14/19 07:54 01/14/19 11:54 01/14/19 17:49 White Blood Count 29.1 H Red Blood Count 3.36 L Hemoglobin 10.4 L Hematocrit 32.3 L Mean Corpuscular 96.1 Volume Mean Corpuscular 31.0 Hemoglobin Mean Corpuscular 32.2 Hemoglobin Concent Red Cell 14.5 Distribution Width Platelet Count 137 L Mean Platelet 11.6 H Volume Immature 1.400 H Granulocytes % Neutrophils % Segmented 87 H Neutrophils % (Manual) Band Neutrophils % 8 H (Manual) Lymphocytes % Lymphocytes % 1 L (Manual) Reactive 1 H Lymphocytes % (Manual) Monocytes % Monocytes % 3 (Manual) Eosinophils % Basophils % Nucleated Red 0.0 Blood Cells % Immature 0.420 H Granulocytes # Neutrophils # Neutrophils # 26.0 H (Manual) Band Neutrophils # 2.3 H Lymphocytes 0.2 L (Manual) Lymphocytes # Reactive 0.2 H Lymphocytes # Monocytes # Monocytes # 0.8 (Manual) Eosinophils # Basophils # Nucleated Red Blood Cells # Platelet Estimate DECREASED Giant Platelets 1 H Polychromasia 1+ Anisocytosis 1+ Macrocytosis 1+ Sodium Level 135 Potassium Level 3.8 Chloride Level 97 Carbon Dioxide 28 Level Anion Gap 10 Blood Urea 43 H Nitrogen Creatinine 4.65 #H Est Glomerular Filtrat Rate mL/min Glucose Level 131 # Calcium Level 8.8 Magnesium Level 2.2 Total Bilirubin 5.0 H Direct Bilirubin 4.40 #H Indirect Bilirubin 0.6 Aspartate Amino 97 H Transf (AST/SGOT) Alanine 58 Aminotransferase ( ALT/SGPT) Alkaline 306 H Phosphatase Total Protein 5.3 L Albumin 2.4 L Globulin 2.90 Albumin/Globulin 0.82 Ratio Bedside Glucose 136 107 117 Test 01/14/19 18:17 Blood Gas Specimen Blood arterial Source Arterial Blood 01/14/2019 6:35:37 Date Drawn PM Arterial Blood pH 7.444 (Temp corrected) Arterial Blood 41.9 pCO2 (Temp correct) Arterial Blood pO2 49.4 *L (Temp corrected) Arterial Blood 28.1 H HCO3 Arterial Blood 3.6 H Base Excess Arterial Blood 85.4 L Oxygen Saturation Jaiden Test N/A Arterial Blood Gas Right Brachial Puncture Site Arterial 0.4 Blood Carboxyhemog lobin Arterial Blood 0 Methemoglobin Blood Gas A-a O2 137.0 H Differential Oxyhemoglobin 85.1 L Percent Blood Gas 37.0 Temperature Blood Gas Modality NASAL CANNULA FiO2 33.0 Blood Gas Critical FREDIS RODRÍGUEZ Value Read Back Blood Gas Notified [place] Whom Blood Gas Notified 01/14/2019 6:44:29 Time PM Subjective 24 Hr Interval Summary Free Text/Dictation Patient with some difficulty breathing and wheezing. Exam/Review of Systems Exam Vitals Vital Signs Date Temp Pulse Resp B/P (MAP) Pulse Ox O2 O2 Flow FiO2 Time Delivery Rate 01/14/19 98.5 100 18 115/53 93 20:00 (73) 01/14/19 Nasal 15:11 Cannula 01/14/19 4.0 08:45 Intake and Output 01/13/19 01/13/19 01/14/19 1515:00 23:00 07:00 IntakeIntake Total 50 ml 200 ml 100 ml BalanceBalance 50 ml 200 ml 100 ml Constitutional: alert (slightly confused ) Head: normocephalic Neck: supple, non-tender Respiratory: crackles/rales, wheezing Cardiovascular: other (tachycardic ) Gastrointestinal: soft, non-tender Neurological: nl speech Results Results 24hrs Laboratory Tests Test 01/13/19 20:55 01/13/19 22:59 01/14/19 02:05 01/14/19 06:09 Bedside Glucose 80 126 122 Hepatitis B NEGATIVE Surface Antigen Hepatitis B NEGATIVE Surface Antibody Test 01/14/19 06:10 01/14/19 07:54 01/14/19 11:54 01/14/19 17:49 White Blood Count 29.1 H Red Blood Count 3.36 L Hemoglobin 10.4 L Hematocrit 32.3 L Mean Corpuscular 96.1 Volume Mean Corpuscular 31.0 Hemoglobin Mean Corpuscular 32.2 Hemoglobin Concent Red Cell 14.5 Distribution Width Platelet Count 137 L Mean Platelet 11.6 H Volume Immature 1.400 H Granulocytes % Neutrophils % Segmented 87 H Neutrophils % (Manual) Band Neutrophils % 8 H (Manual) Lymphocytes % Lymphocytes % 1 L (Manual) Reactive 1 H Lymphocytes % (Manual) Monocytes % Monocytes % 3 (Manual) Eosinophils % Basophils % Nucleated Red 0.0 Blood Cells % Immature 0.420 H Granulocytes # Neutrophils # Neutrophils # 26.0 H (Manual) Band Neutrophils # 2.3 H Lymphocytes 0.2 L (Manual) Lymphocytes # Reactive 0.2 H Lymphocytes # Monocytes # Monocytes # 0.8 (Manual) Eosinophils # Basophils # Nucleated Red Blood Cells # Platelet Estimate DECREASED Giant Platelets 1 H Polychromasia 1+ Anisocytosis 1+ Macrocytosis 1+ Sodium Level 135 Potassium Level 3.8 Chloride Level 97 Carbon Dioxide 28 Level Anion Gap 10 Blood Urea 43 H Nitrogen Creatinine 4.65 #H Est Glomerular Filtrat Rate mL/min Glucose Level 131 # Calcium Level 8.8 Magnesium Level 2.2 Total Bilirubin 5.0 H Direct Bilirubin 4.40 #H Indirect Bilirubin 0.6 Aspartate Amino 97 H Transf (AST/SGOT) Alanine 58 Aminotransferase ( ALT/SGPT) Alkaline 306 H Phosphatase Total Protein 5.3 L Albumin 2.4 L Globulin 2.90 Albumin/Globulin 0.82 Ratio Bedside Glucose 136 107 117 Test 01/14/19 18:17 Blood Gas Specimen Blood arterial Source Arterial Blood 01/14/2019 6:35:37 Date Drawn PM Arterial Blood pH 7.444 (Temp corrected) Arterial Blood 41.9 pCO2 (Temp correct) Arterial Blood pO2 49.4 *L (Temp corrected) Arterial Blood 28.1 H HCO3 Arterial Blood 3.6 H Base Excess Arterial Blood 85.4 L Oxygen Saturation Jaiden Test N/A Arterial Blood Gas Right Brachial Puncture Site Arterial 0.4 Blood Carboxyhemog lobin Arterial Blood 0 Methemoglobin Blood Gas A-a O2 137.0 H Differential Oxyhemoglobin 85.1 L Percent Blood Gas 37.0 Temperature Blood Gas Modality NASAL CANNULA FiO2 33.0 Blood Gas Critical FREDIS RODRÍGUEZ Value Read Back Blood Gas Notified [place] Whom Blood Gas Notified 01/14/2019 6:44:29 Time PM Medications Medication Current Medications Vancomycin HCl (Vanco Iv Per Pharmacy) VANCOMYCIN PER PHARMACY PER PROTOCOL XX ; Start 01/13/19 at 02:00 IV Flush (NS 3 ml) 3 ml PER PROTOCOL IV ; Start 01/13/19 at 02:00 Acetaminophen (Tylenol Tab) 650 mg Q6H PRN PO .PAIN 1-3 OR TEMP; Start 01/13/19 at 02:00 Acetaminophen/ Hydrocodone Bitart ([place] (5/325)) 1 tab Q6H PRN PO .PAIN 4-6 Last administered on 01/13/19at 15:16; Admin Dose 1 TAB; Start 01/13/19 at 02:00 Docusate Sodium (Colace) 100 mg Q12H PRN PO .CONSTIPATION; Start 01/13/19 at 02:00 Bisacodyl (Dulcolax) 5 mg DAILY PRN PO .CONSTIPATION; Start 01/13/19 at 02:00 Pantoprazole (Protonix Tab) 40 mg DAILY@06 PO Last administered on 01/14/19at 06:01; Admin Dose 40 MG; Start 01/13/19 at 06:00 Heparin Sodium (Porcine) (Heparin (5000 Units/1ml)) 5,000 unit Q8 SC Last administered on 01/14/19at 14:21; Admin Dose 5,000 UNIT; Start 01/13/19 at 06:00 Atorvastatin Calcium (Lipitor) 40 mg DAILY@21 PO Last administered on 01/13/19at 21:02; Admin Dose 40 MG; Start 01/13/19 at 21:00 Carvedilol (Coreg) 12.5 mg BID PO ; Start 01/13/19 at 09:00 Clonidine (Catapres) 0.2 mg TID PO Last administered on 01/13/19at 13:28; Admin Dose 0.2 MG; Start 01/13/19 at 09:00 Doxazosin Mesylate (Cardura) 4 mg DAILY@21 PO ; Start 01/13/19 at 21:00 Ferrous Sulfate (Ferrous Sulfate (Ec)) 325 mg BID PO Last administered on 01/13/19at 21:02; Admin Dose 325 MG; Start 01/13/19 at 09:00 Folic Acid (Folic Acid) 1 mg DAILY PO Last administered on 01/13/19at 11:05; Admin Dose 1 MG; Start 01/13/19 at 09:00 Insulin Glargine (Lantus) 20 units QHS SC ; Start 01/13/19 at 21:00 Nifedipine (Procardia Xl) 60 mg BID PO ; Start 01/13/19 at 09:00 Piperacillin Sod/ Tazobactam Sod 50 ml @ 100 mls/hr Q8 IVPB Last administered on 01/14/19at 14:15; Admin Dose 100 MLS/HR; Start 01/13/19 at 06:00 Aspirin (Aspirin) 81 mg DAILY PO Last administered on 01/13/19at 11:17; Admin Dose 81 MG; Start 01/13/19 at 11:00 Diagnostic Test (Pha) (Accu-Chek) 1 ea 02 XX Last administered on 01/14/19at 02:06; Admin Dose 1 EA; Start 01/14/19 at 02:00 Insulin Aspart (Novolog Insulin Pen) NOVOLOG *MILD* ALGORITHM WITH MEALS BEDTIME SC ; Start 01/13/19 at 17:55 Miscellaneous Information 1 ea NOTE XX ; Start 01/13/19 at 15:30 Glucose (Glutose) 15 gm Q15M PRN PO DECREASED GLUCOSE; Start 01/13/19 at 15:30 Glucose (Glutose) 22.5 gm Q15M PRN PO DECREASED GLUCOSE; Start 01/13/19 at 15:30 Dextrose (D50w Syringe) 25 ml Q15M PRN IV DECREASED GLUCOSE; Start 01/13/19 at 15:30 Dextrose (D50w Syringe) 50 ml Q15M PRN IV DECREASED GLUCOSE; Start 01/13/19 at 15:30 Glucagon (Glucagen) 1 mg Q15M PRN IM DECREASED GLUCOSE; Start 01/13/19 at 15:30 Glucose (Glutose) 15 gm Q15M PRN BUCCAL DECREASED GLUCOSE; Start 01/13/19 at 15:30 Zolpidem Tartrate (Ambien) 10 mg HS PRN PO INSOMNIA Last administered on 01/13/19at 22:56; Admin Dose 10 MG; Start 01/13/19 at 23:00 Miscellaneous Information (*Rx Drug Level Order Reminder*) VANCO RANDOM 01/15 @ 0,500 0500 ONCE XX ; Start 01/15/19 at 05:00; Stop 01/15/19 at 05:01 Epoetin Cam-epbx (Retacrit (Esrd)) 4,000 unit TuThSa@1700 SC Last administered on 01/14/19at 17:52; Admin Dose 4,000 UNIT; Start 01/14/19 at 17:00 Levalbuterol (Xopenex Neb) 0.63 mg Q6H RESP THERAPY HHN Last administered on 01/14/19at 19:54; Admin Dose 0.63 MG; Start 01/14/19 at 20:00 Ipratropium [place] (Atrovent 0.02% (Neb)) 0.5 mg Q6H RESP THERAPY HHN Last administered on 01/14/19at 19:54; Admin Dose 0.5 MG; Start 01/14/19 at 20:00 Levalbuterol (Xopenex Neb) 1.25 mg Q4H RESP THERAPY PRN HHN dyspnea; Start 01/14/19 at 19:00 Furosemide (Lasix) 40 mg DAILY IV ; Start 01/15/19 at 09:00 SULEIMAN BOYD NP Jan 14, 2019 20:31
[2019-01-14] MEDS: DOXAZOSIN 4 MG TAB PO SCH (21:00)
[2019-01-14] MEDS: ATORVASTATIN 40 MG TAB PO SCH (21:00)
[2019-01-14] MEDS: INSULIN GLARGINE [LANTus] (100 UNITS/ML) SYG SC SCH (22:04)
[2019-01-15] VITALS (37 sets, daily range): BP systolic 60–152; BP diastolic 27–71; PULSE 76–114; RESP 12–32
[2019-01-15] MEDS: BALSAM PERU/CASTOR OIL 60 GM TUBE TOP SCH ×3 (00:40→21:02)
[2019-01-15] MEDS: ACETYLCYSTEINE 20% 4 ML VIAL NEB SCH ×4 (01:32→19:39)
[2019-01-15] MEDS: LEVALBUTEROL (NEB) 0.63 MG/3 ML AMP HHN SCH ×4 (01:32→19:39)
[2019-01-15] MEDS: IPRATROPIUM (NEB) 0.5 MG/2.5 ML AMP HHN SCH ×4 (01:32→19:39)
[2019-01-15] MEDS: ACCU-CHEK XX SCH (02:30)
[2019-01-15] MEDS: PANTOPRAZOLE (EC) 40 MG TAB PO SCH (06:00)
[2019-01-15] MEDS: PIPER-TAZO 2.25 GM (PMX) 50 ML IVPB SCH ×2 (06:09→13:51)
[2019-01-15] MEDS: HEPARIN 5,000 UNIT/1 ML VIAL SC SCH ×3 (06:10→21:16)
[2019-01-15] MEDS ORDERED: ETOMIDATE 20 MG INJ ONE (07:00)
[2019-01-15] MEDS ORDERED: SUCCINYLCHOLINE CHLORIDE 100 MG/5 ML SYG IV ONE (07:00)
[2019-01-15] MEDS: INSULIN ASPART [NOVOLOG] 3 ML PEN SC SCH ×3 (07:55→21:00)
[2019-01-15] MEDS ORDERED: FUROSEMIDE 40 MG INJ IV SCH (09:00)
[2019-01-15] MEDS: FERROUS SULFATE (EC) 325 MG TAB PO SCH ×2 (09:00→21:00)
[2019-01-15] MEDS: NIFEdipine (XL) 60 MG TAB PO SCH (09:00)
[2019-01-15] MEDS: FOLIC ACID 1 MG TAB PO SCH (09:00)
[2019-01-15] MEDS: ASPIRIN 81 MG TAB PO SCH (09:00)
--- NOTE | 2019-01-15 09:21 | CONS ---
Consultation Date/Type/Reason Admit Date/Time January 13, 2019 at 00:07 Initial Consult Date Type of Consult Cardiology Date/Time of Note DATE: 01/15/19 TIME: 09:20 24 HR Interval Summary Free Text/Dictation Sepsis secondary to pneumonia Minimally elevated troponin, trending down CAD with history of CABG End-stage renal disease on hemodialysis Diabetes Hypertension Dyslipidemia -Patient presents with symptoms of fatigue, chills and shortness of breath. Found to have pneumonia on chest x-ray as well as leukocytosis and minimally elevated troponins which are currently trending down. -ECG with no significant seeming abnormalities. Elevation likely secondary to sepsis -Continue aspirin therapy, continue statin therapy, continue beta-farrukh as heart rate and blood pressure permits - Patient hypoxic yesterday on highflow concerning for worsening pneumonia Exam/Review of Systems Vital Signs Vitals Vital Signs Date Temp Pulse Resp B/P (MAP) Pulse Ox O2 O2 Flow FiO2 Time Delivery Rate 01/15/19 98 60 08:20 01/15/19 87 08:01 01/15/19 98.8 20 138/71 Nasal 07:13 (93) Cannula 01/14/19 15.0 20:00 Intake and Output 01/14/19 01/14/19 01/15/19 1515:00 23:00 07:00 IntakeIntake Total 200 ml OutputOutput Total 2200 ml BalanceBalance -2200 ml 200 ml Exam Exam Lethargic RRR rhonchi bilaterally no edema Labs Result Diagram: 01/15/19 0442 01/15/19 0442 Results 24hrs Laboratory Tests Test 01/14/19 11:54 01/14/19 17:49 01/14/19 18:17 01/14/19 22:00 Bedside Glucose 107 117 125 Blood Gas Blood arterial Specimen Source Arterial Blood 01/14/2019 6:35:37 Date Drawn PM Arterial Blood 7.444 pH (Temp corrected) Arterial Blood 41.9 pCO2 (Temp correct) Arterial Blood 49.4 *L pO2 (Temp corrected) Arterial Blood 28.1 H HCO3 Arterial Blood 3.6 H Base Excess Arterial Blood 85.4 L Oxygen Saturatio n Jaiden Test N/A Arterial Blood Right Brachial Gas Puncture Site Arterial 0.4 Blood Carboxyhem oglobin Arterial Blood 0 Methemoglobin Blood Gas A-a O2 137.0 H Differential Oxyhemoglobin 85.1 L Percent Blood Gas 37.0 Temperature Blood Gas NASAL CANNULA Modality FiO2 33.0 Blood Gas FREDIS RODRÍGUEZ Critical Value Read Back Blood Gas [place] Notified Whom Blood Gas 01/14/2019 6:44:29 Notified Time PM Test 01/14/19 23:00 01/15/19 02:32 01/15/19 04:42 01/15/19 07:58 Blood Gas Blood arterial Specimen Source Arterial Blood 01/14/2019 11:20:5 Date Drawn 7 PM Arterial Blood 7.473 H pH (Temp corrected) Arterial Blood 40.1 pCO2 (Temp correct) Arterial Blood 62.2 L pO2 (Temp corrected) Arterial Blood 28.7 H HCO3 Arterial Blood 4.8 H Base Excess Arterial Blood 91.8 L Oxygen Saturatio n Jaiden Test N/A Arterial Blood Right Radial Gas Puncture Site Arterial 0.2 Blood Carboxyhem oglobin Arterial Blood 0.1 Methemoglobin Blood Gas A-a O2 321.5 H Differential Oxyhemoglobin 91.5 L Percent Blood Gas 37.0 Temperature Blood Gas Actual 24 Respiration Rate Blood Gas HFNC Modality FiO2 60.0 Blood Gas [facility]. Notified Whom Blood Gas 01/14/2019 11:27:5 Notified Time 0 PM Bedside Glucose 111 80 White Blood 25.4 H Count Red Blood Count 3.07 L Hemoglobin 9.6 L Hematocrit 29.9 L Mean Corpuscular 97.4 Volume Mean Corpuscular 31.3 Hemoglobin Mean Corpuscular 32.1 Hemoglobin Joie nt Red Cell 14.6 H Distribution Width Platelet Count 122 L Mean Platelet 11.4 H Volume Immature 1.500 H Granulocytes % Neutrophils % Segmented 90 H Neutrophils % (Manual) Band Neutrophils 2 % (Manual) Lymphocytes % Lymphocytes % 3 L (Manual) Reactive 1 H Lymphocytes % (Manual) Monocytes % Monocytes % 2 (Manual) Eosinophils % Eosinophils % 2 (Manual) Basophils % Nucleated Red 0.0 Blood Cells % Immature 0.390 H Granulocytes # Neutrophils # Neutrophils # 23.0 H (Manual) Band Neutrophils 0.5 # Lymphocytes 0.7 L (Manual) Lymphocytes # Reactive 0.2 H Lymphocytes # Monocytes # Monocytes # 0.5 (Manual) Eosinophils # Basophils # Nucleated Red Blood Cells # Platelet DECREASED Estimate Giant Platelets 1 H Anisocytosis 1+ Macrocytosis 1+ Sodium Level 142 Potassium Level 4.0 Chloride Level 104 Carbon Dioxide 30 Level Anion Gap 8 Blood Urea 26 #H Nitrogen Creatinine 3.42 #H Est Glomerular Filtrat Rate mL/min Glucose Level 94 Calcium Level 8.9 Total Bilirubin 5.6 H Direct Bilirubin 4.80 H Indirect 0.8 Bilirubin Aspartate Amino 125 H Transf (AST/SGOT ) Alanine 59 Aminotransferase (ALT/SGPT) Alkaline 354 H Phosphatase Total Protein 5.2 L Albumin 2.2 L Globulin 3.00 Albumin/Globulin 0.73 Ratio Random 6.9 Vancomycin Level Medications Medications Current Medications Vancomycin HCl (Vanco Iv Per Pharmacy) VANCOMYCIN PER PHARMACY PER PROTOCOL XX ; Start 01/13/19 at 02:00 IV Flush (NS 3 ml) 3 ml PER PROTOCOL IV ; Start 01/13/19 at 02:00 Acetaminophen (Tylenol Tab) 650 mg Q6H PRN PO .PAIN 1-3 OR TEMP; Start 01/13/19 at 02:00 Acetaminophen/ Hydrocodone Bitart ([place] (5/325)) 1 tab Q6H PRN PO .PAIN 4-6 Last administered on 01/13/19at 15:16; Admin Dose 1 TAB; Start 01/13/19 at 02:00 Docusate Sodium (Colace) 100 mg Q12H PRN PO .CONSTIPATION; Start 01/13/19 at 02:00 Bisacodyl (Dulcolax) 5 mg DAILY PRN PO .CONSTIPATION; Start 01/13/19 at 02:00 Pantoprazole (Protonix Tab) 40 mg DAILY@06 PO Last administered on 01/14/19at 06:01; Admin Dose 40 MG; Start 01/13/19 at 06:00 Heparin Sodium (Porcine) (Heparin (5000 Units/1ml)) 5,000 unit Q8 SC Last administered on 01/15/19at 06:10; Admin Dose 5,000 UNIT; Start 01/13/19 at 06:00 Atorvastatin Calcium (Lipitor) 40 mg DAILY@21 PO Last administered on 01/13/19at 21:02; Admin Dose 40 MG; Start 01/13/19 at 21:00 Carvedilol (Coreg) 12.5 mg BID PO ; Start 01/13/19 at 09:00 Clonidine (Catapres) 0.2 mg TID PO Last administered on 01/13/19at 13:28; Admin Dose 0.2 MG; Start 01/13/19 at 09:00 Doxazosin Mesylate (Cardura) 4 mg DAILY@21 PO ; Start 01/13/19 at 21:00 Ferrous Sulfate (Ferrous Sulfate (Ec)) 325 mg BID PO Last administered on 01/13/19at 21:02; Admin Dose 325 MG; Start 01/13/19 at 09:00 Folic Acid (Folic Acid) 1 mg DAILY PO Last administered on 01/13/19at 11:05; Admin Dose 1 MG; Start 01/13/19 at 09:00 Insulin Glargine (Lantus) 20 units QHS SC Last administered on 01/14/19at 22:04; Admin Dose 20 UNITS; Start 01/13/19 at 21:00 Nifedipine (Procardia Xl) 60 mg BID PO ; Start 01/13/19 at 09:00 Piperacillin Sod/ Tazobactam Sod 50 ml @ 100 mls/hr Q8 IVPB Last administered on 01/15/19at 06:09; Admin Dose 100 MLS/HR; Start 01/13/19 at 06:00 Aspirin (Aspirin) 81 mg DAILY PO Last administered on 01/13/19at 11:17; Admin Dose 81 MG; Start 01/13/19 at 11:00 Diagnostic Test (Pha) (Accu-Chek) 1 ea 02 XX Last administered on 01/15/19at 02:30; Admin Dose 1 EA; Start 01/14/19 at 02:00 Insulin Aspart (Novolog Insulin Pen) NOVOLOG *MILD* ALGORITHM WITH MEALS BEDTIME SC ; Start 01/13/19 at 17:55 Miscellaneous Information 1 ea NOTE XX ; Start 01/13/19 at 15:30 Glucose (Glutose) 15 gm Q15M PRN PO DECREASED GLUCOSE; Start 01/13/19 at 15:30 Glucose (Glutose) 22.5 gm Q15M PRN PO DECREASED GLUCOSE; Start 01/13/19 at 15:30 Dextrose (D50w Syringe) 25 ml Q15M PRN IV DECREASED GLUCOSE; Start 01/13/19 at 15:30 Dextrose (D50w Syringe) 50 ml Q15M PRN IV DECREASED GLUCOSE; Start 01/13/19 at 15:30 Glucagon (Glucagen) 1 mg Q15M PRN IM DECREASED GLUCOSE; Start 01/13/19 at 15:30 Glucose (Glutose) 15 gm Q15M PRN BUCCAL DECREASED GLUCOSE; Start 01/13/19 at 15:30 Zolpidem Tartrate (Ambien) 10 mg HS PRN PO INSOMNIA Last administered on 01/13/19at 22:56; Admin Dose 10 MG; Start 01/13/19 at 23:00 Epoetin Cam-epbx (Retacrit (Esrd)) 4,000 unit TuThSa@1700 SC Last administered on 01/14/19at 17:52; Admin Dose 4,000 UNIT; Start 01/14/19 at 17:00 Levalbuterol (Xopenex Neb) 0.63 mg Q6H RESP THERAPY HHN Last administered on 01/15/19at 08:19; Admin Dose 0.63 MG; Start 01/14/19 at 20:00 Ipratropium [place] (Atrovent 0.02% (Neb)) 0.5 mg Q6H RESP THERAPY HHN Last administered on 01/15/19at 08:19; Admin Dose 0.5 MG; Start 01/14/19 at 20:00 Levalbuterol (Xopenex Neb) 1.25 mg Q4H RESP THERAPY PRN HHN dyspnea; Start 01/14/19 at 19:00 Furosemide (Lasix) 40 mg DAILY IV ; Start 01/15/19 at 09:00 Acetylcysteine (Mucomyst) 2 ml Q6H RESP THERAPY NEB Last administered on 01/15/19at 08:30; Admin Dose 2 ML; Start 01/15/19 at 02:00 ANATOLIY BECKER MD Jan 15, 2019 09:21
--- NOTE | 2019-01-15 10:44 | CONS ---
Assessment/Plan Assessment/Plan Hospital Course (Demo Recall) 1. End-stage renal disease on hemodialysis. hemodialysis Wednesday, and Wednesday via left arm AV fistula 2. Sepsis, likely secondary to pneumonia/ cholecystitis. 3. Minimally elevated troponin, could be secondary to chronic kidney disease. 4. Hypokalemia, resolved. 5. Leukocytosis. 6. Shortness of breath, cough, weakness, leukocytosis of 26.8, likely secondary to pneumonia. 7. Hyperbilirubinemia, abnormal liver function tests. 8. Impending respiratory failure, likely secondary to pneumonia. 9. Hypertension, currently normotensive. 10. Dyslipidemia. 11. Diabetes. 12. Anemia chronic disease 13. encephalopathy, ALOC Assessment/Plan (Daily) - tele. -on high flow pt might have a cholecystitis, Richter sign is positive, need GI specialist - pancultured. -HD t, , wed -avoid nephrotoxic drugs -c/w Epogen after HD Consultation Date/Type/Reason Admit Date/Time January 13, 2019 at 00:07 Initial Consult Date 01/13/2019 Type of Consult nephrology Date/Time of Note DATE: 01/15/19 TIME: 10:40 24 HR Interval Summary Free Text/Dictation ALOC, declined Exam/Review of Systems Exam Vitals Vital Signs Date Temp Pulse Resp B/P (MAP) Pulse Ox O2 O2 Flow FiO2 Time Delivery Rate 01/15/19 98 60 08:20 01/15/19 87 08:01 01/15/19 98.8 20 138/71 Nasal 07:13 (93) Cannula 01/14/19 15.0 20:00 Intake and Output 01/14/19 01/14/19 01/15/19 1515:00 23:00 07:00 IntakeIntake Total 200 ml OutputOutput Total 2200 ml BalanceBalance -2200 ml 200 ml Exam lethargic, left arm AV fistula Head: normocephalic Neck: supple Respiratory: diminished breath sounds, wheezing (left lung) Cardiovascular: regular rate and rhythm Gastrointestinal: soft, nl liver, spleen, non-tender, ascites, bowel sounds, distended, firm, hepatomegaly, mass, rebound or guarding, splenomegaly, surgical scars, tender, other (pos. Richter sign) Skin: other (pale) Results Result Diagram: 01/15/1944101/15/19441 Results 24hrs Laboratory Tests Test 01/14/19 11:54 01/14/19 17:49 01/14/19 18:17 01/14/19 22:00 Bedside Glucose 107 117 125 Blood Gas Blood arterial Specimen Source Arterial Blood 01/14/2019 6:35:37 Date Drawn PM Arterial Blood 7.444 pH (Temp corrected) Arterial Blood 41.9 pCO2 (Temp correct) Arterial Blood 49.4 *L pO2 (Temp corrected) Arterial Blood 28.1 H HCO3 Arterial Blood 3.6 H Base Excess Arterial Blood 85.4 L Oxygen Saturatio n Jaiden Test N/A Arterial Blood Right Brachial Gas Puncture Site Arterial 0.4 Blood Carboxyhem oglobin Arterial Blood 0 Methemoglobin Blood Gas A-a O2 137.0 H Differential Oxyhemoglobin 85.1 L Percent Blood Gas 37.0 Temperature Blood Gas NASAL CANNULA Modality FiO2 33.0 Blood Gas FREDIS RODRÍGUEZ Critical Value Read Back Blood Gas [place] Notified Whom Blood Gas 01/14/2019 6:44:29 Notified Time PM Test 01/14/19 23:00 01/15/19 02:32 01/15/19 04:42 01/15/19 07:58 Blood Gas Blood arterial Specimen Source Arterial Blood 01/14/2019 11:20:5 Date Drawn 7 PM Arterial Blood 7.473 H pH (Temp corrected) Arterial Blood 40.1 pCO2 (Temp correct) Arterial Blood 62.2 L pO2 (Temp corrected) Arterial Blood 28.7 H HCO3 Arterial Blood 4.8 H Base Excess Arterial Blood 91.8 L Oxygen Saturatio n Jaiden Test N/A Arterial Blood Right Radial Gas Puncture Site Arterial 0.2 Blood Carboxyhem oglobin Arterial Blood 0.1 Methemoglobin Blood Gas A-a O2 321.5 H Differential Oxyhemoglobin 91.5 L Percent Blood Gas 37.0 Temperature Blood Gas Actual 24 Respiration Rate Blood Gas HFNC Modality FiO2 60.0 Blood Gas [facility].H. Notified Whom Blood Gas 01/14/2019 11:27:5 Notified Time 0 PM Bedside Glucose 111 80 White Blood 25.4 H Count Red Blood Count 3.07 L Hemoglobin 9.6 L Hematocrit 29.9 L Mean Corpuscular 97.4 Volume Mean Corpuscular 31.3 Hemoglobin Mean Corpuscular 32.1 Hemoglobin Joie nt Red Cell 14.6 H Distribution Width Platelet Count 122 L Mean Platelet 11.4 H Volume Immature 1.500 H Granulocytes % Neutrophils % Segmented 90 H Neutrophils % (Manual) Band Neutrophils 2 % (Manual) Lymphocytes % Lymphocytes % 3 L (Manual) Reactive 1 H Lymphocytes % (Manual) Monocytes % Monocytes % 2 (Manual) Eosinophils % Eosinophils % 2 (Manual) Basophils % Nucleated Red 0.0 Blood Cells % Immature 0.390 H Granulocytes # Neutrophils # Neutrophils # 23.0 H (Manual) Band Neutrophils 0.5 # Lymphocytes 0.7 L (Manual) Lymphocytes # Reactive 0.2 H Lymphocytes # Monocytes # Monocytes # 0.5 (Manual) Eosinophils # Basophils # Nucleated Red Blood Cells # Platelet DECREASED Estimate Giant Platelets 1 H Anisocytosis 1+ Macrocytosis 1+ Sodium Level 142 Potassium Level 4.0 Chloride Level 104 Carbon Dioxide 30 Level Anion Gap 8 Blood Urea 26 #H Nitrogen Creatinine 3.42 #H Est Glomerular Filtrat Rate mL/min Glucose Level 94 Calcium Level 8.9 Total Bilirubin 5.6 H Direct Bilirubin 4.80 H Indirect 0.8 Bilirubin Aspartate Amino 125 H Transf (AST/SGOT ) Alanine 59 Aminotransferase (ALT/SGPT) Alkaline 354 H Phosphatase Total Protein 5.2 L Albumin 2.2 L Globulin 3.00 Albumin/Globulin 0.73 Ratio Random 6.9 Vancomycin Level Medications Medication Current Medications Vancomycin HCl (Vanco Iv Per Pharmacy) VANCOMYCIN PER PHARMACY PER PROTOCOL XX ; Start 01/13/19 at 02:00 IV Flush (NS 3 ml) 3 ml PER PROTOCOL IV ; Start 01/13/19 at 02:00 Acetaminophen (Tylenol Tab) 650 mg Q6H PRN PO .PAIN 1-3 OR TEMP; Start 01/13/19 at 02:00 Acetaminophen/ Hydrocodone Bitart ([place] (5/325)) 1 tab Q6H PRN PO .PAIN 4-6 Last administered on 01/13/19at 15:16; Admin Dose 1 TAB; Start 01/13/19 at 02:00 Docusate Sodium (Colace) 100 mg Q12H PRN PO .CONSTIPATION; Start 01/13/19 at 02:00 Bisacodyl (Dulcolax) 5 mg DAILY PRN PO .CONSTIPATION; Start 01/13/19 at 02:00 Pantoprazole (Protonix Tab) 40 mg DAILY@06 PO Last administered on 01/14/19at 06:01; Admin Dose 40 MG; Start 01/13/19 at 06:00 Heparin Sodium (Porcine) (Heparin (5000 Units/1ml)) 5,000 unit Q8 SC Last administered on 01/15/19at 06:10; Admin Dose 5,000 UNIT; Start 01/13/19 at 06:00 Atorvastatin Calcium (Lipitor) 40 mg DAILY@21 PO Last administered on 01/13/19at 21:02; Admin Dose 40 MG; Start 01/13/19 at 21:00 Carvedilol (Coreg) 12.5 mg BID PO ; Start 01/13/19 at 09:00 Clonidine (Catapres) 0.2 mg TID PO Last administered on 01/13/19at 13:28; Admin Dose 0.2 MG; Start 01/13/19 at 09:00 Doxazosin Mesylate (Cardura) 4 mg DAILY@21 PO ; Start 01/13/19 at 21:00 Ferrous Sulfate (Ferrous Sulfate (Ec)) 325 mg BID PO Last administered on 01/13/19at 21:02; Admin Dose 325 MG; Start 01/13/19 at 09:00 Folic Acid (Folic Acid) 1 mg DAILY PO Last administered on 01/13/19 11:05; Admin Dose 1 MG; Start 01/13/19 at 09:00 Insulin Glargine (Lantus) 20 units QHS SC Last administered on 01/14/19at 22:04; Admin Dose 20 UNITS; Start 01/13/19 at 21:00 Nifedipine (Procardia Xl) 60 mg BID PO ; Start 01/13/19 at 09:00 Piperacillin Sod/ Tazobactam Sod 50 ml @ 100 mls/hr Q8 IVPB Last administered on 01/15/19 06:09; Admin Dose 100 MLS/HR; Start 01/13/19 at 06:00 Aspirin (Aspirin) 81 mg DAILY PO Last administered on 01/13/19 11:17; Admin Dose 81 MG; Start 01/13/19 at 11:00 Diagnostic Test (Pha) (Accu-Chek) 1 ea 02 XX Last administered on 01/15/19at 02:30; Admin Dose 1 EA; Start 01/14/19 at 02:00 Insulin Aspart (Novolog Insulin Pen) NOVOLOG *MILD* ALGORITHM WITH MEALS BEDTIME SC ; Start 01/13/19 at 17:55 Miscellaneous Information 1 ea NOTE XX ; Start 01/13/19 at 15:30 Glucose (Glutose) 15 gm Q15M PRN PO DECREASED GLUCOSE; Start 01/13/19 at 15:30 Glucose (Glutose) 22.5 gm Q15M PRN PO DECREASED GLUCOSE; Start 01/13/19 at 15:30 Dextrose (D50w Syringe) 25 ml Q15M PRN IV DECREASED GLUCOSE; Start 01/13/19 at 15:30 Dextrose (D50w Syringe) 50 ml Q15M PRN IV DECREASED GLUCOSE; Start 01/13/19 at 15:30 Glucagon (Glucagen) 1 mg Q15M PRN IM DECREASED GLUCOSE; Start 01/13/19 at 15:30 Glucose (Glutose) 15 gm Q15M PRN BUCCAL DECREASED GLUCOSE; Start 01/13/19 at 15:30 Zolpidem Tartrate (Ambien) 10 mg HS PRN PO INSOMNIA Last administered on 01/13/19at 22:56; Admin Dose 10 MG; Start 01/13/19 at 23:00 Epoetin Cam-epbx (Retacrit (Esrd)) 4,000 unit TuThSa@1700 SC Last administered on 01/14/19at 17:52; Admin Dose 4,000 UNIT; Start 01/14/19 at 17:00 Levalbuterol (Xopenex Neb) 0.63 mg Q6H RESP THERAPY HHN Last administered on 01/15/19at 08:19; Admin Dose 0.63 MG; Start 01/14/19 at 20:00 Ipratropium [place] (Atrovent 0.02% (Neb)) 0.5 mg Q6H RESP THERAPY HHN Last administered on 01/15/19at 08:19; Admin Dose 0.5 MG; Start 01/14/19 at 20:00 Levalbuterol (Xopenex Neb) 1.25 mg Q4H RESP THERAPY PRN HHN dyspnea; Start 01/14/19 at 19:00 Furosemide (Lasix) 40 mg DAILY IV Last administered on 01/15/19at 09:41; Admin Dose 40 MG; Start 01/15/19 at 09:00 Acetylcysteine (Mucomyst) 2 ml Q6H RESP THERAPY NEB Last administered on 01/15/19at 08:30; Admin Dose 2 ML; Start 01/15/19 at 02:00 IVONNE BHAT Jan 15, 2019 10:44
--- NOTE | 2019-01-15 12:23 | PN ---
Date/Time of Note Date/Time of Note DATE: 01/15/19 TIME: 12:18 Assessment/Plan VTE Prophylaxis Risk score (from Nsg)>0 risk: 5 SCD applied (from Nsg): Yes Pharmacological prophylaxis: heparin Lines/Catheters IV Catheter Type (from Nrsg): Saline Lock Assessment/Plan Hospital Course 1. Sepsis secondary to underlying healthcare associated pneumonia possibly from dialysis center - Chest x-ray shows a left-sided pneumonia. - continue abx - ID consult to follow 2. Healthcare associated pneumonia: Vancomycin, Zosyn - continue abx - f/u cultures (respiratory, blood) 3. Hypoxia: - Secondary likely to underlying pneumonia. - continue breathing tx - bipap prn - monitor CXR/ABG - continue HD - pulmonary consultation. 4. NSTEMI type II secondary to demand - Echo with preserved EF - troponin marker downward tended - inclusion paraeducator following 5 Coronary artery disease: History of CABG - Continue home medications 6. End-stage renal disease - Patient receives dialysis (Wednesday, and Wednesday) - f/u nephro recs 7. Diabetes mellitus - A1c 4.7 - Continue insulin regimen 8. Hypertension - monitor BP trend 9. Lower back pain with left leg weakness: Possibly resulting in sciatica. - Continue PT once more stable DISPO.PLAN: titrate down o2. pulmonary and ID consult to follow. continue with HD and abx. Discussed plan of care with Dr. Ray Result Diagram: 01/15/192 01/15/19 0442 Results 24hrs Laboratory Tests Test 01/14/19 17:49 01/14/19 18:17 01/14/19 22:00 01/14/19 23:00 Bedside Glucose 117 125 Blood Gas Blood arterial Blood arterial Specimen Source Arterial Blood 01/14/2019 6:35:37 01/14/2019 11:20:5 Date Drawn PM 7 PM Arterial Blood 7.444 7.473 H pH (Temp corrected) Arterial Blood 41.9 40.1 pCO2 (Temp correct) Arterial Blood 49.4 *L 62.2 L pO2 (Temp corrected) Arterial Blood 28.1 H 28.7 H HCO3 Arterial Blood 3.6 H 4.8 H Base Excess Arterial Blood 85.4 L 91.8 L Oxygen Saturatio n Jaiden Test N/A N/A Arterial Blood Right Brachial Right Radial Gas Puncture Site Arterial 0.4 0.2 Blood Carboxyhem oglobin Arterial Blood 0 0.1 Methemoglobin Blood Gas A-a O2 137.0 H 321.5 H Differential Oxyhemoglobin 85.1 L 91.5 L Percent Blood Gas 37.0 37.0 Temperature Blood Gas NASAL CANNULA HFNC Modality FiO2 33.0 60.0 Blood Gas FREDIS RODRÍGUEZ Critical Value Read Back Blood Gas [facility] Notified Whom Blood Gas 01/14/2019 6:44:29 01/14/2019 11:27:5 Notified Time PM 0 PM Blood Gas Actual 24 Respiration Rate Test 01/15/19 02:32 01/15/19 04:42 01/15/19 07:58 Bedside Glucose 111 80 White Blood 25.4 H Count Red Blood Count 3.07 L Hemoglobin 9.6 L Hematocrit 29.9 L Mean Corpuscular 97.4 Volume Mean Corpuscular 31.3 Hemoglobin Mean Corpuscular 32.1 Hemoglobin Joie nt Red Cell 14.6 H Distribution Width Platelet Count 122 L Mean Platelet 11.4 H Volume Immature 1.500 H Granulocytes % Neutrophils % Segmented 90 H Neutrophils % (Manual) Band Neutrophils 2 % (Manual) Lymphocytes % Lymphocytes % 3 L (Manual) Reactive 1 H Lymphocytes % (Manual) Monocytes % Monocytes % 2 (Manual) Eosinophils % Eosinophils % 2 (Manual) Basophils % Nucleated Red 0.0 Blood Cells % Immature 0.390 H Granulocytes # Neutrophils # Neutrophils # 23.0 H (Manual) Band Neutrophils 0.5 # Lymphocytes 0.7 L (Manual) Lymphocytes # Reactive 0.2 H Lymphocytes # Monocytes # Monocytes # 0.5 (Manual) Eosinophils # Basophils # Nucleated Red Blood Cells # Platelet DECREASED Estimate Giant Platelets 1 H Anisocytosis 1+ Macrocytosis 1+ Sodium Level 142 Potassium Level 4.0 Chloride Level 104 Carbon Dioxide 30 Level Anion Gap 8 Blood Urea 26 #H Nitrogen Creatinine 3.42 #H Est Glomerular Filtrat Rate mL/min Glucose Level 94 Calcium Level 8.9 Total Bilirubin 5.6 H Direct Bilirubin 4.80 H Indirect 0.8 Bilirubin Aspartate Amino 125 H Transf (AST/SGOT ) Alanine 59 Aminotransferase (ALT/SGPT) Alkaline 354 H Phosphatase Total Protein 5.2 L Albumin 2.2 L Globulin 3.00 Albumin/Globulin 0.73 Ratio Random 6.9 Vancomycin Level Subjective 24 Hr Interval Summary Free Text/Dictation remains on hi-flow. is arousable but lethargic. family at bedside. Exam/Review of Systems Exam Vitals Vital Signs Date Temp Pulse Resp B/P (MAP) Pulse Ox O2 O2 Flow FiO2 Time Delivery Rate 01/15/19 94 18 143/66 92 11:34 (91) 01/15/19 60 11:03 01/15/19 98.8 Nasal 07:13 Cannula 01/14/19 15.0 20:00 Intake and Output 01/14/19 01/14/19 01/15/19 1515:00 23:00 07:00 IntakeIntake Total 200 ml OutputOutput Total 2200 ml BalanceBalance -2200 ml 200 ml Constitutional: alert; No oriented Respiratory: congested cough, crackles/rales, diminished breath sounds Cardiovascular: other (regular rate ) Gastrointestinal: soft, non-tender Musculoskeletal: No swelling Neurological: No nl mental status, No nl speech Results Results 24hrs Laboratory Tests Test 01/14/19 17:49 01/14/19 18:17 01/14/19 22:00 01/14/19 23:00 Bedside Glucose 117 125 Blood Gas Blood arterial Blood arterial Specimen Source Arterial Blood 01/14/2019 6:35:37 01/14/2019 11:20:5 Date Drawn PM 7 PM Arterial Blood 7.444 7.473 H pH (Temp corrected) Arterial Blood 41.9 40.1 pCO2 (Temp correct) Arterial Blood 49.4 *L 62.2 L pO2 (Temp corrected) Arterial Blood 28.1 H 28.7 H HCO3 Arterial Blood 3.6 H 4.8 H Base Excess Arterial Blood 85.4 L 91.8 L Oxygen Saturatio n Jaiden Test N/A N/A Arterial Blood Right Brachial Right Radial Gas Puncture Site Arterial 0.4 0.2 Blood Carboxyhem oglobin Arterial Blood 0 0.1 Methemoglobin Blood Gas A-a O2 137.0 H 321.5 H Differential Oxyhemoglobin 85.1 L 91.5 L Percent Blood Gas 37.0 37.0 Temperature Blood Gas NASAL CANNULA HFNC Modality FiO2 33.0 60.0 Blood Gas FREDIS RODRÍGUEZ Critical Value Read Back Blood Gas [facility] Notified Whom Blood Gas 01/14/2019 6:44:29 01/14/2019 11:27:5 Notified Time PM 0 PM Blood Gas Actual 24 Respiration Rate Test 01/15/19 02:32 01/15/19 04:42 01/15/19 07:58 Bedside Glucose 111 80 White Blood 25.4 H Count Red Blood Count 3.07 L Hemoglobin 9.6 L Hematocrit 29.9 L Mean Corpuscular 97.4 Volume Mean Corpuscular 31.3 Hemoglobin Mean Corpuscular 32.1 Hemoglobin Joie nt Red Cell 14.6 H Distribution Width Platelet Count 122 L Mean Platelet 11.4 H Volume Immature 1.500 H Granulocytes % Neutrophils % Segmented 90 H Neutrophils % (Manual) Band Neutrophils 2 % (Manual) Lymphocytes % Lymphocytes % 3 L (Manual) Reactive 1 H Lymphocytes % (Manual) Monocytes % Monocytes % 2 (Manual) Eosinophils % Eosinophils % 2 (Manual) Basophils % Nucleated Red 0.0 Blood Cells % Immature 0.390 H Granulocytes # Neutrophils # Neutrophils # 23.0 H (Manual) Band Neutrophils 0.5 # Lymphocytes 0.7 L (Manual) Lymphocytes # Reactive 0.2 H Lymphocytes # Monocytes # Monocytes # 0.5 (Manual) Eosinophils # Basophils # Nucleated Red Blood Cells # Platelet DECREASED Estimate Giant Platelets 1 H Anisocytosis 1+ Macrocytosis 1+ Sodium Level 142 Potassium Level 4.0 Chloride Level 104 Carbon Dioxide 30 Level Anion Gap 8 Blood Urea 26 #H Nitrogen Creatinine 3.42 #H Est Glomerular Filtrat Rate mL/min Glucose Level 94 Calcium Level 8.9 Total Bilirubin 5.6 H Direct Bilirubin 4.80 H Indirect 0.8 Bilirubin Aspartate Amino 125 H Transf (AST/SGOT ) Alanine 59 Aminotransferase (ALT/SGPT) Alkaline 354 H Phosphatase Total Protein 5.2 L Albumin 2.2 L Globulin 3.00 Albumin/Globulin 0.73 Ratio Random 6.9 Vancomycin Level Medications Medication Current Medications Vancomycin HCl (Vanco Iv Per Pharmacy) VANCOMYCIN PER PHARMACY PER PROTOCOL XX ; Start 01/13/19 at 02:00 IV Flush (NS 3 ml) 3 ml PER PROTOCOL IV ; Start 01/13/19 at 02:00 Acetaminophen (Tylenol Tab) 650 mg Q6H PRN PO .PAIN 1-3 OR TEMP; Start 01/13/19 at 02:00 Acetaminophen/ Hydrocodone Bitart ([place] (5/325)) 1 tab Q6H PRN PO .PAIN 4-6 Last administered on 01/13/19at 15:16; Admin Dose 1 TAB; Start 01/13/19 at 02:00 Docusate Sodium (Colace) 100 mg Q12H PRN PO .CONSTIPATION; Start 01/13/19 at 02:00 Bisacodyl (Dulcolax) 5 mg DAILY PRN PO .CONSTIPATION; Start 01/13/19 at 02:00 Pantoprazole (Protonix Tab) 40 mg DAILY@06 PO Last administered on 01/14/19at 06:01; Admin Dose 40 MG; Start 01/13/19 at 06:00 Heparin Sodium (Porcine) (Heparin (5000 Units/1ml)) 5,000 unit Q8 SC Last administered on 01/15/19 06:10; Admin Dose 5,000 UNIT; Start 01/13/19 at 06:00 Atorvastatin Calcium (Lipitor) 40 mg DAILY@21 PO Last administered on 01/13/19at 21:02; Admin Dose 40 MG; Start 01/13/19 at 21:00 Carvedilol (Coreg) 12.5 mg BID PO ; Start 01/13/19 at 09:00 Clonidine (Catapres) 0.2 mg TID PO Last administered on 01/13/19at 13:28; Admin Dose 0.2 MG; Start 01/13/19 at 09:00 Doxazosin Mesylate (Cardura) 4 mg DAILY@21 PO ; Start 01/13/19 at 21:00 Ferrous Sulfate (Ferrous Sulfate (Ec)) 325 mg BID PO Last administered on 01/13/19at 21:02; Admin Dose 325 MG; Start 01/13/19 at 09:00 Folic Acid (Folic Acid) 1 mg DAILY PO Last administered on 01/13/19at 11:05; Admin Dose 1 MG; Start 01/13/19 at 09:00 Insulin Glargine (Lantus) 20 units QHS SC Last administered on 01/14/19at 22:04; Admin Dose 20 UNITS; Start 01/13/19 at 21:00 Nifedipine (Procardia Xl) 60 mg BID PO ; Start 01/13/19 at 09:00 Piperacillin Sod/ Tazobactam Sod 50 ml @ 100 mls/hr Q8 IVPB Last administered on 01/15/19 06:09; Admin Dose 100 MLS/HR; Start 01/13/19 at 06:00 Aspirin (Aspirin) 81 mg DAILY PO Last administered on 5/31/19at 11:17; Admin Dose 81 MG; Start 01/13/19 at 11:00 Diagnostic Test (Pha) (Accu-Chek) 1 ea 02 XX Last administered on 01/15/19at 02:30; Admin Dose 1 EA; Start 01/14/19 at 02:00 Insulin Aspart (Novolog Insulin Pen) NOVOLOG *MILD* ALGORITHM WITH MEALS BEDTIME SC ; Start 01/13/19 at 17:55 Miscellaneous Information 1 ea NOTE XX ; Start 01/13/19 at 15:30 Glucose (Glutose) 15 gm Q15M PRN PO DECREASED GLUCOSE; Start 01/13/19 at 15:30 Glucose (Glutose) 22.5 gm Q15M PRN PO DECREASED GLUCOSE; Start 01/13/19 at 15:30 Dextrose (D50w Syringe) 25 ml Q15M PRN IV DECREASED GLUCOSE; Start 01/13/19 at 15:30 Dextrose (D50w Syringe) 50 ml Q15M PRN IV DECREASED GLUCOSE; Start 01/13/19 at 15:30 Glucagon (Glucagen) 1 mg Q15M PRN IM DECREASED GLUCOSE; Start 01/13/19 at 15:30 Glucose (Glutose) 15 gm Q15M PRN BUCCAL DECREASED GLUCOSE; Start 01/13/19 at 15:30 Zolpidem Tartrate (Ambien) 10 mg HS PRN PO INSOMNIA Last administered on 01/13/19at 22:56; Admin Dose 10 MG; Start 01/13/19 at 23:00 Epoetin Cam-epbx (Retacrit (Esrd)) 4,000 unit TuThSa@1700 SC Last administered on 01/14/19at 17:52; Admin Dose 4,000 UNIT; Start 01/14/19 at 17:00 Levalbuterol (Xopenex Neb) 0.63 mg Q6H RESP THERAPY HHN Last administered on 01/15/19at 08:19; Admin Dose 0.63 MG; Start 01/14/19 at 20:00 Ipratropium Duck (Atrovent 0.02% (Neb)) 0.5 mg Q6H RESP THERAPY HHN Last administered on 01/15/19at 08:19; Admin Dose 0.5 MG; Start 01/14/19 at 20:00 Levalbuterol (Xopenex Neb) 1.25 mg Q4H RESP THERAPY PRN HHN dyspnea; Start 01/14/19 at 19:00 Furosemide (Lasix) 40 mg DAILY IV Last administered on 01/15/19at 09:41; Admin Dose 40 MG; Start 01/15/19 at 09:00 Acetylcysteine (Mucomyst) 2 ml Q6H RESP THERAPY NEB Last administered on 01/15/19at 08:30; Admin Dose 2 ML; Start 01/15/19 at 02:00 SULEIMAN BOYD NP Jan 15, 2019 12:23
[2019-01-15] MEDS: HYDROCODONE/APAP (5/325) TAB PO PRN (13:40)
[2019-01-15] MEDS ORDERED: VANCOMYCIN 1 GM 250 ML IVPB ONE (14:00)
--- NOTE | 2019-01-15 17:08 | CONS ---
Assessment/Plan Assessment/Plan Assessment/Plan (Daily) IMP: 1. Hypoxemic and hypercapnic respiratory failure 2. Extensive CAP vs. HCAP 3. Persistent leukocytosis 4. AMS--likely toxic-metabolic encephalopathy 5. ESRD on HD 6. HTN 7. CAD RECS: 1. Needs intubation--will discuss risks/benefits with daughter 2. IV access 3. Hold antihypertensives post-intubation 4. Broaden antibiotics--> see orders 5. Repeat cultures 6. CT chest non-contrast 7. IVFs 8. HD/UF as per Renal Consultation Date/Type/Reason Admit Date/Time January 13, 2019 at 00:07 Date of Consultation: Jan 15, 2019 Type of Consult Pulm/CCM Reason for Consultation Resp Failure Date/Time of Note DATE: 01/15/19 TIME: 16:59 Hx of Present Illness Briefly, this is a 73-year-old male with a past medical history of hypertension, hyperlipidemia, coronary artery disease status post coronary artery bypass, ESRD on HD via AVF, admitted ~ 4 days ago with dyspnea and a generalized weakness, found to have a sepsis 2/2 a left-sided pneumonia. Over the course of his hospitalization, he has persistently elevated WBC count and worsening hypoxemia. He was transferred today to the ICU for worsening respiratory distress. Subjective hx not possible: pt non-verbal, pt critical status Past Medical History as per [facility] Home Meds Reported Medications Cholecalciferol* (Vitamin D3*) 1,000 Unit Tablet, 1000 UNIT PO DAILY, TAB 01/13/19 Multivit/Ca Carb/B Cmplx/Fa* (Celine-Alex*) 1 Tab Tab, 1 TAB PO DAILY, TAB 01/13/19 Aspirin* (Aspirin* EC) 81 Mg Tablet.dr, 81 MG PO DAILY, TAB 01/13/19 Rosuvastatin Calcium (Rosuvastatin Calcium) 10 Mg Tablet, 10 MG PO QAM for 30 Days, #30 01/13/19 Hydralazine Hcl* (Apresoline*) 50 Mg Tab, 50 MG PO TID for 30 Days, #90 01/13/19 Zolpidem Tartrate* (Zolpidem Tartrate*) 10 Mg Tablet, 10 MG PO QHS for 30 Days, #30 01/13/19 Amiodarone Hcl* (Amiodarone Hcl*) 200 Mg Tablet, 200 MG PO QAM for 30 Days, #30 01/13/19 Ibuprofen* (Ibuprofen*) 800 Mg Tab, 1600 MG PO BID PRN for PAIN, TAB 01/01/17 Folic Acid* (Folic Acid*) 1 Mg Tablet, 1 MG PO DAILY, TAB 01/01/17 Discontinued Reported Medications Insulin Regular, Human (Humulin R) 100 Unit/1 Ml Vial, 0 IJ SLIDING SCALES, VIAL 01/01/17 Folic Acid/Vitamin B Comp W-C (Full Spectrum B With Vit C Tab) 0.8 Mg Tablet, 0. 8 MG PO DAILY, TAB 01/01/17 Ferrous Sulfate* (Ferrous Sulfate*) 325 Mg Tabec, 325 MG PO BID, TAB 01/01/17 Citric Acid/Sodium Citrate (Cytra-2 Oral Solution) 473 Ml Solution, 473 ML PO DAILY 01/01/17 Insulin Glargine* (Lantus*) 100 Unit/Ml Soln, 20 UNIT SC QHS, #1 VIAL 01/01/17 Glimepiride* (Amaryl*) 4 Mg Tablet, 4 MG PO BID 08/05/09 Fenofibrate Nanocrystallized* (Tricor*) 145 Mg Tablet, 145 MG PO DAILY 08/05/09 Discontinued Scripts Cholecalciferol* (Vitamin D3*) 1,000 Unit Tablet, 1000 UNIT PO DAILY for 28 Days, TAB Prov:REINIER GIBSON MD 12/18/16 Nifedipine (Afeditab CR) 60 Mg Tablet.sa, 60 MG PO BID for 28 Days Prov:REINIER GIBSON MD 12/18/16 Doxazosin Mesylate* (Cardura*) 4 Mg Tablet, 4 MG PO DAILY@21 for 10 Days, TAB Prov:REINIER GIBSON MD 12/18/16 Clonidine Hcl* (Catapres*) 0.2 Mg Tablet, 0.2 MG PO TID for 28 Days, TAB Prov:REINIER GIBSON MD 12/18/16 Carvedilol* (Carvedilol*) 12.5 Mg Tablet, 12.5 MG PO BID for 14 Days, TAB Prov:REINIER GIBSON MD 12/18/16 Atorvastatin* (Atorvastatin*) 40 Mg Tablet, 40 MG PO DAILY@21 for 14 Days, TAB Prov:REINIER GIBSON MD 12/18/16 Medications Current Medications Vancomycin HCl (Vanco Iv Per Pharmacy) VANCOMYCIN PER PHARMACY PER PROTOCOL XX ; Start 01/13/19 at 02:00 IV Flush (NS 3 ml) 3 ml PER PROTOCOL IV ; Start 01/13/19 at 02:00 Acetaminophen (Tylenol Tab) 650 mg Q6H PRN PO .PAIN 1-3 OR TEMP; Start 01/13/19 at 02:00 Acetaminophen/ Hydrocodone Bitart ([place] (5/325)) 1 tab Q6H PRN PO .PAIN 4-6 Last administered on 01/15/19 13:40; Admin Dose 1 TAB; Start 01/13/19 at 02:00 Docusate Sodium (Colace) 100 mg Q12H PRN PO .CONSTIPATION; Start 01/13/19 at 02:00 Bisacodyl (Dulcolax) 5 mg DAILY PRN PO .CONSTIPATION; Start 01/13/19 at 02:00 Pantoprazole (Protonix Tab) 40 mg DAILY@06 PO Last administered on 01/14/19at 06:01; Admin Dose 40 MG; Start 01/13/19 at 06:00 Heparin Sodium (Porcine) (Heparin (5000 Units/1ml)) 5,000 unit Q8 SC Last administered on 01/15/19 13:41; Admin Dose 5,000 UNIT; Start 01/13/19 at 06:00 Atorvastatin Calcium (Lipitor) 40 mg DAILY@21 PO Last administered on 01/13/19at 21:02; Admin Dose 40 MG; Start 01/13/19 at 21:00 Carvedilol (Coreg) 12.5 mg BID PO ; Start 01/13/19 at 09:00 Clonidine (Catapres) 0.2 mg TID PO Last administered on 01/15/19at 13:40; Admin Dose 0.2 MG; Start 01/13/19 at 09:00 Doxazosin Mesylate (Cardura) 4 mg DAILY@21 PO ; Start 01/13/19 at 21:00 Ferrous Sulfate (Ferrous Sulfate (Ec)) 325 mg BID PO Last administered on 01/13/19at 21:02; Admin Dose 325 MG; Start 01/13/19 at 09:00 Folic Acid (Folic Acid) 1 mg DAILY PO Last administered on 01/13/19at 11:05; Admin Dose 1 MG; Start 01/13/19 at 09:00 Insulin Glargine (Lantus) 20 units QHS SC Last administered on 01/14/19at 22:04; Admin Dose 20 UNITS; Start 01/13/19 at 21:00 Nifedipine (Procardia Xl) 60 mg BID PO ; Start 01/13/19 at 09:00 Piperacillin Sod/ Tazobactam Sod 50 ml @ 100 mls/hr Q8 IVPB Last administered on 01/15/19at 13:51; Admin Dose 100 MLS/HR; Start 01/13/19 at 06:00 Aspirin (Aspirin) 81 mg DAILY PO Last administered on 01/13/19at 11:17; Admin Dose 81 MG; Start 01/13/19 at 11:00 Diagnostic Test (Pha) (Accu-Chek) 1 ea 02 XX Last administered on 01/15/19at 02:30; Admin Dose 1 EA; Start 01/14/19 at 02:00 Insulin Aspart (Novolog Insulin Pen) NOVOLOG *MILD* ALGORITHM WITH MEALS BEDTIME SC ; Start 01/13/19 at 17:55 Miscellaneous Information 1 ea NOTE XX ; Start 01/13/19 at 15:30 Glucose (Glutose) 15 gm Q15M PRN PO DECREASED GLUCOSE; Start 01/13/19 at 15:30 Glucose (Glutose) 22.5 gm Q15M PRN PO DECREASED GLUCOSE; Start 01/13/19 at 15:30 Dextrose (D50w Syringe) 25 ml Q15M PRN IV DECREASED GLUCOSE; Start 01/13/19 at 15:30 Dextrose (D50w Syringe) 50 ml Q15M PRN IV DECREASED GLUCOSE; Start 01/13/19 at 15:30 Glucagon (Glucagen) 1 mg Q15M PRN IM DECREASED GLUCOSE; Start 01/13/19 at 15:30 Glucose (Glutose) 15 gm Q15M PRN BUCCAL DECREASED GLUCOSE; Start 01/13/19 at 15:30 Zolpidem Tartrate (Ambien) 10 mg HS PRN PO INSOMNIA Last administered on 01/13/19at 22:56; Admin Dose 10 MG; Start 01/13/19 at 23:00 Epoetin Cam-epbx (Retacrit (Esrd)) 4,000 unit TuThSa@1700 SC Last administered on 01/14/19at 17:52; Admin Dose 4,000 UNIT; Start 01/14/19 at 17:00 Levalbuterol (Xopenex Neb) 0.63 mg Q6H RESP THERAPY HHN Last administered on 01/15/19at 13:23; Admin Dose 0.63 MG; Start 01/14/19 at 20:00 Ipratropium Mather (Atrovent 0.02% (Neb)) 0.5 mg Q6H RESP THERAPY HHN Last administered on 01/15/19at 13:23; Admin Dose 0.5 MG; Start 01/14/19 at 20:00 Levalbuterol (Xopenex Neb) 1.25 mg Q4H RESP THERAPY PRN HHN dyspnea; Start 01/14/19 at 19:00 Acetylcysteine (Mucomyst) 2 ml Q6H RESP THERAPY NEB Last administered on 01/15/19at 13:33; Admin Dose 2 ML; Start 01/15/19 at 02:00 Allergies: Coded Allergies: No Known Allergy (Unverified , 01/13/19) Past Surgical History Past Surgical Hx: coronary bypass surgery, other (AV fistula) Social History Alcohol Use: none Smoking Status: Former smoker Drug Use: none Exam/Review of Systems Exam Vitals Vital Signs Date Temp Pulse Resp B/P (MAP) Pulse Ox O2 O2 Flow FiO2 Time Delivery Rate 01/15/19 97 60 16:31 01/15/19 83 16:01 01/15/19 98.6 15:44 01/15/19 18 108/52 15:33 (70) 01/15/19 Nasal 07:13 Cannula 01/14/19 15.0 20:00 Intake and Output 01/14/19 01/14/19 01/15/19 1515:00 23:00 07:00 IntakeIntake Total 200 ml OutputOutput Total 2200 ml BalanceBalance -2200 ml 200 ml Constitutional: distress, obese Psych: confusion Head: normocephalic, atraumatic Eyes: nl conjunctiva, nl lids, nl sclera ENMT: mucosa pink and moist Neck: supple, non-tender Respiratory: crackles/rales, labored breathing Cardiovascular: regular rate and rhythm, systolic murmur Gastrointestinal: soft, nl liver, spleen, non-tender Musculoskeletal: nl extremities to inspection Extremities: normal pulses Neurological: confused Results Result Diagram: 01/15/192 01/15/192 Results 24hrs Laboratory Tests Test 01/14/19 17:49 01/14/19 18:17 01/14/19 22:00 01/14/19 23:00 Bedside Glucose 117 125 Blood Gas Blood arterial Blood arterial Specimen Source Arterial Blood 01/14/2019 6:35:37 01/14/2019 11:20:5 Date Drawn PM 7 PM Arterial Blood 7.444 7.473 H pH (Temp corrected) Arterial Blood 41.9 40.1 pCO2 (Temp correct) Arterial Blood 49.4 *L 62.2 L pO2 (Temp corrected) Arterial Blood 28.1 H 28.7 H HCO3 Arterial Blood 3.6 H 4.8 H Base Excess Arterial Blood 85.4 L 91.8 L Oxygen Saturatio n Jaiden Test N/A N/A Arterial Blood Right Brachial Right Radial Gas Puncture Site Arterial 0.4 0.2 Blood Carboxyhem oglobin Arterial Blood 0 0.1 Methemoglobin Blood Gas A-a O2 137.0 H 321.5 H Differential Oxyhemoglobin 85.1 L 91.5 L Percent Blood Gas 37.0 37.0 Temperature Blood Gas NASAL CANNULA HFNC Modality FiO2 33.0 60.0 Blood Gas FREDIS RODRÍGUEZ Critical Value Read Back Blood Gas [facility] Notified Whom Blood Gas 01/14/2019 6:44:29 01/14/2019 11:27:5 Notified Time PM 0 PM Blood Gas Actual 24 Respiration Rate Test 01/15/19 02:32 01/15/19 04:42 01/15/19 07:58 01/15/19 10:01 Bedside Glucose 111 80 White Blood 25.4 H Count Red Blood Count 3.07 L Hemoglobin 9.6 L Hematocrit 29.9 L Mean Corpuscular 97.4 Volume Mean Corpuscular 31.3 Hemoglobin Mean Corpuscular 32.1 Hemoglobin Joie nt Red Cell 14.6 H Distribution Width Platelet Count 122 L Mean Platelet 11.4 H Volume Immature 1.500 H Granulocytes % Neutrophils % Segmented 90 H Neutrophils % (Manual) Band Neutrophils 2 % (Manual) Lymphocytes % Lymphocytes % 3 L (Manual) Reactive 1 H Lymphocytes % (Manual) Monocytes % Monocytes % 2 (Manual) Eosinophils % Eosinophils % 2 (Manual) Basophils % Nucleated Red 0.0 Blood Cells % Immature 0.390 H Granulocytes # Neutrophils # Neutrophils # 23.0 H (Manual) Band Neutrophils 0.5 # Lymphocytes 0.7 L (Manual) Lymphocytes # Reactive 0.2 H Lymphocytes # Monocytes # Monocytes # 0.5 (Manual) Eosinophils # Basophils # Nucleated Red Blood Cells # Platelet DECREASED Estimate Giant Platelets 1 H Anisocytosis 1+ Macrocytosis 1+ Sodium Level 142 Potassium Level 4.0 Chloride Level 104 Carbon Dioxide 30 Level Anion Gap 8 Blood Urea 26 #H Nitrogen Creatinine 3.42 #H Est Glomerular Filtrat Rate mL/min Glucose Level 94 Calcium Level 8.9 Total Bilirubin 5.6 H Direct Bilirubin 4.80 H Indirect 0.8 Bilirubin Aspartate Amino 125 H Transf (AST/SGOT ) Alanine 59 Aminotransferase (ALT/SGPT) Alkaline 354 H Phosphatase Total Protein 5.2 L Albumin 2.2 L Globulin 3.00 Albumin/Globulin 0.73 Ratio Random 6.9 Vancomycin Level Blood Gas Blood arterial Specimen Source Arterial Blood 01/15/2019 10:31:0 Date Drawn 0 AM Arterial Blood 7.445 pH (Temp corrected) Arterial Blood 45.3 H pCO2 (Temp correct) Arterial Blood 56.9 L pO2 (Temp corrected) Arterial Blood 30.4 H HCO3 Arterial Blood 5.7 H Base Excess Arterial Blood 89.4 L Oxygen Saturatio n Jaiden Test ACCEPTAB Arterial Blood Left Radial Gas Puncture Site Arterial 0.3 Blood Carboxyhem oglobin Arterial Blood 0.1 Methemoglobin Blood Gas A-a O2 284.9 H Differential Oxyhemoglobin 89.0 L Percent Blood Gas 37.0 Temperature Blood Gas HFNC Modality FiO2 55.0 Blood Gas Notified Whom Blood Gas 01/15/2019 10:45:0 Notified Time 0 AM Test 01/15/19 11:57 01/15/19 12:15 Lactic Acid 1.8 Level Lipase 75 Hepatitis B NEGATIVE Surface Antigen Hepatitis B Core NEGATIVE Total Antibody Hepatitis C NEGATIVE Antibody Bedside Glucose 114 Medications Medication Current Medications Vancomycin HCl (Vanco Iv Per Pharmacy) VANCOMYCIN PER PHARMACY PER PROTOCOL XX ; Start 01/13/19 at 02:00 IV Flush (NS 3 ml) 3 ml PER PROTOCOL IV ; Start 01/13/19 at 02:00 Acetaminophen (Tylenol Tab) 650 mg Q6H PRN PO .PAIN 1-3 OR TEMP; Start 01/13/19 at 02:00 Acetaminophen/ Hydrocodone Bitart ([place] (5/325)) 1 tab Q6H PRN PO .PAIN 4-6 Last administered on 6/2/19at 13:40; Admin Dose 1 TAB; Start 01/13/19 at 02:00 Docusate Sodium (Colace) 100 mg Q12H PRN PO .CONSTIPATION; Start 01/13/19 at 02:00 Bisacodyl (Dulcolax) 5 mg DAILY PRN PO .CONSTIPATION; Start 01/13/19 at 02:00 Pantoprazole (Protonix Tab) 40 mg DAILY@06 PO Last administered on 01/14/19 06:01; Admin Dose 40 MG; Start 01/13/19 at 06:00 Heparin Sodium (Porcine) (Heparin (5000 Units/1ml)) 5,000 unit Q8 SC Last adm inistered on 01/15/19 13:41; Admin Dose 5,000 UNIT; Start 01/13/19 at 06:00 Atorvastatin Calcium (Lipitor) 40 mg DAILY@21 PO Last administered on 01/13/19 21:02; Admin Dose 40 MG; Start 01/13/19 at 21:00 Carvedilol (Coreg) 12.5 mg BID PO ; Start 01/13/19 at 09:00 Clonidine (Catapres) 0.2 mg TID PO Last administered on 01/15/19 13:40; Admin Dose 0.2 MG; Start 01/13/19 at 09:00 Doxazosin Mesylate (Cardura) 4 mg DAILY@21 PO ; Start 01/13/19 at 21:00 Ferrous Sulfate (Ferrous Sulfate (Ec)) 325 mg BID PO Last administered on 01/13/19 21:02; Admin Dose 325 MG; Start 01/13/19 at 09:00 Folic Acid (Folic Acid) 1 mg DAILY PO Last administered on 01/13/19 11:05; Admin Dose 1 MG; Start 01/13/19 at 09:00 Insulin Glargine (Lantus) 20 units QHS SC Last administered on 01/14/19 22:04; Admin Dose 20 UNITS; Start 01/13/19 at 21:00 Nifedipine (Procardia Xl) 60 mg BID PO ; Start 01/13/19 at 09:00 Piperacillin Sod/ Tazobactam Sod 50 ml @ 100 mls/hr Q8 IVPB Last administered on 01/15/19 13:51; Admin Dose 100 MLS/HR; Start 01/13/19 at 06:00 Aspirin (Aspirin) 81 mg DAILY PO Last administered on 01/13/19at 11:17; Admin Dose 81 MG; Start 01/13/19 at 11:00 Diagnostic Test (Pha) (Accu-Chek) 1 ea 02 XX Last administered on 01/15/19at 02:30; Admin Dose 1 EA; Start 01/14/19 at 02:00 Insulin Aspart (Novolog Insulin Pen) NOVOLOG *MILD* ALGORITHM WITH MEALS BEDTIME SC ; Start 01/13/19 at 17:55 Miscellaneous Information 1 ea NOTE XX ; Start 01/13/19 at 15:30 Glucose (Glutose) 15 gm Q15M PRN PO DECREASED GLUCOSE; Start 01/13/19 at 15:30 Glucose (Glutose) 22.5 gm Q15M PRN PO DECREASED GLUCOSE; Start 01/13/19 at 15:30 Dextrose (D50w Syringe) 25 ml Q15M PRN IV DECREASED GLUCOSE; Start 01/13/19 at 15:30 Dextrose (D50w Syringe) 50 ml Q15M PRN IV DECREASED GLUCOSE; Start 01/13/19 at 15:30 Glucagon (Glucagen) 1 mg Q15M PRN IM DECREASED GLUCOSE; Start 01/13/19 at 15:30 Glucose (Glutose) 15 gm Q15M PRN BUCCAL DECREASED GLUCOSE; Start 01/13/19 at 15:30 Zolpidem Tartrate (Ambien) 10 mg HS PRN PO INSOMNIA Last administered on 01/13/19at 22:56; Admin Dose 10 MG; Start 01/13/19 at 23:00 Epoetin Cam-epbx (Retacrit (Esrd)) 4,000 unit TuThSa@1700 SC Last administered on 01/14/19at 17:52; Admin Dose 4,000 UNIT; Start 01/14/19 at 17:00 Levalbuterol (Xopenex Neb) 0.63 mg Q6H RESP THERAPY HHN Last administered on 01/15/19at 13:23; Admin Dose 0.63 MG; Start 01/14/19 at 20:00 Ipratropium Mather (Atrovent 0.02% (Neb)) 0.5 mg Q6H RESP THERAPY HHN Last administered on 01/15/19at 13:23; Admin Dose 0.5 MG; Start 01/14/19 at 20:00 Levalbuterol (Xopenex Neb) 1.25 mg Q4H RESP THERAPY PRN HHN dyspnea; Start 01/14/19 at 19:00 Acetylcysteine (Mucomyst) 2 ml Q6H RESP THERAPY NEB Last administered on 01/15/19at 13:33; Admin Dose 2 ML; Start 01/15/19 at 02:00 DINORAH LEI MD Jan 15, 2019 17:08
[2019-01-15] MEDS ORDERED: FENTAnyl 50 MCG/ML VIAL ONE (17:16)
[2019-01-15] MEDS ORDERED: FENTAnyl 50 MCG/ML VIAL IV ONE (17:30)
[2019-01-15] MEDS ORDERED: PROPOFOL 100 ML IV SCH (17:30)
[2019-01-15] MEDS ORDERED: ALBUMIN HUMAN 25% 100 ML ONE (17:37)
--- NOTE | 2019-01-15 17:50 | CONS ---
DATE OF ADMISSION: 01/13/2019 DATE OF CONSULTATION: 01/15/2019 TYPE OF CONSULTATION: Infectious Disease. REASON FOR CONSULTATION: Antibiotic management. HISTORY OF PRESENT ILLNESS: Andry Martell is a 73-year-old [place] male admitted on 01/12 with shortness of breath and weakness. His past problems include end-stage renal disease on he modialysis. The patient presented to the emergency room with acute dyspnea, generalized weakness and constipation for 1 day. He had dialysis in the morning of the . Denied fever or chest pain. H e does not smoke or drink. PAST PROBLEMS: Include: 1. Chronic renal disease with end-stage renal dialysis. 2. Hypertension. 3. Diabetes mellitus. 4. Dyslipidemia. 5. Anemia of chronic disease. 6. Coronary artery disease. 7. Left upper extremity AV fistula. 8. Status post coronary artery bypass grafting. PAST MEDICAL HISTORY: As outlined. PAST SURGICAL HISTORY: As outlined. FAMILY HISTORY: Noncontributory. SOCIAL HISTORY: He does not smoke, drink or abuse drugs. ALLERGIES: NONE TO PENICILLIN, SULFA OR FOODS. MEDICATIONS: Per chart. REVIEW OF SYSTEMS: As per HPI. PHYSICAL EXAMINATION: GENERAL: The patient is a well-developed, well-nourished male who is awake, responsive, in mild dist ress. VITAL SIGNS: Stable. He is afebrile. SKIN: Without generalized rash. HEENT: Within normal limits. NECK: Supple. LYMPH NODES: None palpable. CHEST: Decreased breath sounds at the bases with rales at the left base. HEART: Without murmur or gallop. ABDOMEN: Soft, nontender, without organosplenomegaly or masses. EXTREMITIES: Without cyanosis, clubbing, or edema. RECTAL AND GENITAL: Deferred. NEUROLOGIC: No focal neurological abnormalities. ANCILLARY LABORATORY DATA: On admission, white count was 26.8, H and H of 11.9 and 36.9, platelet co unt 136,000. BUN and creatinine 29/3.06. Blood glucose of 103. The patient had 82 neutrophils and 13 bands with a significant left shift. IMPRESSION AND PLAN: The patient was started on vancomycin and Zosyn. Chest x-rays showed enlarged heart, large airspace disease, area of airspace disease in the right perihilar region extending into the right upper lobe and the left lung base, aortic calcified plaque present. No CHF or hilar enlarg ement. The patient has acute pneumonia, left-sided. The patient was started on vancomycin and Zosyn . HOSPITAL COURSE: The patient was seen by Dr. Decker for cardiology. The patient presents with fever and shortness of breath. The patient was seen by Dr. Nielson. Currently, sepsis secondary to underl [facility]-associated pneumonia, possibly from dialysis center. Blood cultures are negative. W deloris count is still 25.4, H and H 9.6 and 29.9, platelet count of 122,000 with 90 polys, 2 bands. Ch est x-ray today shows cardiomegaly with calcified atherosclerosis of the aorta, pulmonary venous aleyda estion, interstitial prominence in both lungs, stable patchy infiltrates in the right lung. We will continue the patient on current therapy. I will dictate my findings to Dr. Nielson and to Dr. Decker and to the hospitalist. Dictated By: JUAN A WOLF MD, JD/NUNO Conf#: [id number] DID#: [id number] CC: EVELINE PEREIRA MD;*EndCC*
--- NOTE | 2019-01-15 17:51 | EN ---
Date/Time of Note Date/Time of Note DATE: 01/15/19 TIME: 17:47 Event Note Medicine Medicine Event Note Endotracheal Intubation Indication: Hypoxemic/hypercapnic resp failure Consent: obtained from patient's daughter : Sana Meds: Fentanyl 50 mcg IVP Etomidate 20 mg IVP Succinylcholine 60 mg IVP Findings: Patient pre-oxygenated with 1.0 FiO2 via ambu-bag. Upon induction of anesthesia, DL using MAC 4 blade notable for grade II view. Under direct visualization, an 8.0 ET tube was advanced past the vocal cords and secured at 24 cm at the lips. Initial confirmation via + ETCO2 and breath sounds. SpO2 remained above 90% at all times. Complications: None Follow-up: Stat CXR DINORAH LEI MD Jan 15, 2019 17:51
--- NOTE | 2019-01-15 17:53 | PRO ---
Date/Time of Note Date/Time of Note DATE: 01/15/19 TIME: 17:52 Femoral CV Placement PROCEDURE NOTE PROCEDURE: Right intermal jugular central venous catheter INDICATION: Need for intravenous access due to hypotension PROCEDURE GLOBAL PROCESS OWNER: Sana CONSENT: Consent was obtained from the patient's daughter PROCEDURE SUMMARY: The patient was prepped and draped in the usual sterile manner. 1% lidocaine was used to numb the region. The finder needle was used to locate the right internal jugular vein. A triple lumen 8.5 Pakistani 20 cm catheter was inserted using the Seldinger technique. All ports aspirate and flushed without difficulty. The patient tolerated the procedure well without any immediate complications. The line was sutured into place and the area was cleaned and Tegaderm applied. was present during the procedure. ESTIMATED BLOOD LOSS: 1 ml COMPLICATIONS: None DINORAH LEI MD Jan 15, 2019 17:53
[2019-01-15] MEDS ORDERED: ALBUMIN HUMAN 25% 100 ML IV ONE (18:00)
[2019-01-15] MEDS: AZITHROMYCIN 250 MG in SOD CHLORIDE 0.9% 250 ML IVPB SCH (18:19)
[2019-01-15] MEDS: FENTAnyl (DRIP) 1000 mcg/100mL 100 ML IV SCH (18:20)
[2019-01-15] MEDS: IPRATROPIUM (HFA) 12.9 GM INHALER INH SCH (20:00)
[2019-01-15] MEDS: ALBUTEROL HFA 8 GM INHALER INH SCH (20:00)
[2019-01-15] MEDS ORDERED: FAMOTIDINE 20 MG INJ IV SCH (20:30)
[2019-01-15] MEDS ORDERED: MEROPENEM 1 GM/50ML(PMX) 50 ML IVPB SCH (21:00)
[2019-01-15] MEDS: ATORVASTATIN 40 MG TAB PO SCH (21:00)
[2019-01-15] MEDS: DOXAZOSIN 4 MG TAB PO SCH (21:00)
[2019-01-15] MEDS: NORepinephrine 8MG/250 ML (PMX 250 ML IV SCH (21:06)
[2019-01-15] MEDS: MEROPENEM 500MG/50 ML (PMX) 50 ML IVPB SCH (21:15)
[2019-01-15] MEDS: PROPOFOL 100 ML IV SCH (22:45)
[2019-01-16] VITALS (107 sets, daily range): BP systolic 81–144; BP diastolic 30–85; PULSE 84–96; RESP 18–32
[2019-01-16] MEDS: INSULIN ASPART [NOVOLOG] 3 ML PEN SC SCH ×6 (01:00→21:00)
[2019-01-16] MEDS: IPRATROPIUM (HFA) 12.9 GM INHALER INH SCH ×4 (01:20→20:19)
[2019-01-16] MEDS: ACETYLCYSTEINE 20% 4 ML VIAL NEB SCH ×4 (01:20→20:18)
[2019-01-16] MEDS: ALBUTEROL HFA 8 GM INHALER INH SCH ×4 (01:20→20:18)
[2019-01-16] MEDS ORDERED: FAMOTIDINE 20 MG INJ ONE (01:21)
[2019-01-16] MEDS: VASOPRESSIN 60 UNIT in DEXTROSE 5% 57 ML IV SCH ×2 (04:54→14:21)
[2019-01-16] MEDS: MEROPENEM 500MG/50 ML (PMX) 50 ML IVPB SCH ×2 (04:55→17:57)
[2019-01-16] MEDS: FAMOTIDINE 20 MG INJ IV SCH (05:01)
[2019-01-16] MEDS: HEPARIN 5,000 UNIT/1 ML VIAL SC SCH ×3 (05:03→21:42)
[2019-01-16] MEDS ORDERED: PANTOPRAZOLE 40 MG INJ IV SCH (06:00)
[2019-01-16] MEDS: PROPOFOL 100 ML IV SCH ×2 (06:23→19:19)
[2019-01-16] MEDS: NORepinephrine 8MG/250 ML (PMX 250 ML IV SCH ×3 (06:25→21:45)
[2019-01-16] MEDS: FERROUS SULFATE (EC) 325 MG TAB PO SCH ×2 (08:05→21:40)
[2019-01-16] MEDS: FOLIC ACID 1 MG TAB PO SCH (08:05)
[2019-01-16] MEDS: ASPIRIN 81 MG TAB PO SCH (08:05)
[2019-01-16] MEDS: ACETAMINOPHEN 325 MG TAB PO PRN (08:05)
[2019-01-16] MEDS: BALSAM PERU/CASTOR OIL 60 GM TUBE TOP SCH ×2 (08:06→21:41)
--- NOTE | 2019-01-16 09:18 | PN ---
Date/Time of Note Date/Time of Note DATE: 01/16/19 TIME: 09:10 Assessment/Plan VTE Prophylaxis Risk score (from Ns)>0 risk: 8 SCD applied (from Nsg): Yes Pharmacological prophylaxis: heparin Lines/Catheters IV Catheter Type (from Nrsg): Central Line Central line still needed: Yes Urinary Cath still in place: No Assessment/Plan Hospital Course 1. Sepsis secondary to underlying healthcare associated pneumonia possibly from dialysis center - continue abx - ID following - f/u respiratory cultures 2. Healthcare associated pneumonia - continue abx - f/u cultures (respiratory, blood) 3. Hypoxic respiratory failure - multifactorial: pna, esrd - continue breathing tx - intubated now - titrate down o2 as tolerated - monitor CXR/ABG - continue HD - color drum worker following 4. NSTEMI type II secondary to demand - Echo with preserved EF - troponin marker downward tended - size tester following 5 Coronary artery disease: History of CABG - Continue home medications 6. End-stage renal disease - Patient receives dialysis (Wednesday, and Wednesday) - f/u nephro recs - correct electrolytes as needed 7. Diabetes mellitus - A1c 4.7 - Continue insulin regimen 8. Hypertension - monitor BP trend 9. Lower back pain with left leg weakness: Possibly resulting in sciatica. - Continue PT once more stable DISPO.PLAN: Vent weaning as tolerated. f/u cultures. continue abx. f/u AM labs. continue HD. continue ICU monitoring Discussed plan of care with Dr. Nieves Result Diagram: 01/16/19 0400 01/16/19 0400 Results 24hrs Laboratory Tests Test 01/15/19 10:01 01/15/19 11:57 01/15/19 12:15 01/15/19 18:15 Blood Gas Blood arterial Blood arterial Specimen Source Arterial Blood 01/15/2019 10:31: 01/15/2019 6:35:5 Date Drawn 00 AM 5 PM Arterial Blood 7.445 7.465 H pH (Temp corrected ) Arterial Blood 45.3 H 40.2 pCO2 (Temp correct) Arterial Blood 56.9 L 90.0 pO2 (Temp corrected ) Arterial Blood 30.4 H 28.3 H HCO3 Arterial Blood 5.7 H 4.2 H Base Excess Arterial Blood 89.4 L 96.6 Oxygen Saturati on [place]iden Test ACCEPTAB ACCEPTAB Arterial Blood Left Radial Right Radial Gas Puncture Site Arterial 0.3 0.3 Blood Carboxyhe moglobin Arterial Blood 0.1 0.1 Methemoglobin Blood Gas A-a 284.9 H 365.9 H O2 Differential Oxyhemoglobin 89.0 L 96.2 Percent Blood Gas 37.0 37.0 Temperature Blood Gas HFNC VENT - AC Modality FiO2 55.0 70.0 Blood Gas PHILIPPE Mayer Notified Whom Blood Gas 01/15/2019 10:45: 01/15/2019 6:45:2 Notified Time 00 AM 8 PM Lactic Acid 1.8 Level Lipase 75 Hepatitis B NEGATIVE Surface Antigen Hepatitis B NEGATIVE Core Total Antibody Hepatitis C NEGATIVE Antibody Bedside Glucose 114 Blood Gas 24.0 Respiration Rate Blood Gas 24 Actual Respiration Rat e Blood Gas Tidal 500.0 Volume Blood Gas Low 5.0 PEEP Setting Test 01/15/19 21:26 01/16/19 01:30 01/16/19 04:00 01/16/19 04:22 Bedside Glucose 74 70 79 White Blood 25.7 H Count Red Blood Count 2.97 L Hemoglobin 9.4 L Hematocrit 29.0 L Mean 97.6 Corpuscular Volume Mean 31.6 Corpuscular Hemoglobin Mean 32.4 Corpuscular Hemoglobin Conc ent Red Cell 14.7 H Distribution Width Platelet Count 113 L Mean Platelet 12.0 H Volume Immature 1.500 H Granulocytes % Neutrophils % Segmented 76 Neutrophils % (Manual) Band 8 H Neutrophils % (Manual) Lymphocytes % Lymphocytes % 11 L (Manual) Monocytes % Eosinophils % Eosinophils % 4 (Manual) Basophils % Basophils % 1 (Manual) Nucleated Red 0.1 H Blood Cells % Immature 0.390 H Granulocytes # Neutrophils # Neutrophils # 20.0 H (Manual) Band 2.0 H Neutrophils # Lymphocytes 2.8 (Manual) Lymphocytes # Monocytes # Eosinophils # Basophils # Basophils # 0.2 H (Manual) Nucleated Red Blood Cells # Platelet DECREASED Estimate Giant Platelets 9 H Polychromasia 1+ Poikilocytosis 1+ Anisocytosis 1+ Macrocytosis 1+ Sodium Level 142 Potassium Level 3.9 Chloride Level 105 Carbon Dioxide 25 Level Anion Gap 12 Blood Urea 37 #H Nitrogen Creatinine 4.34 H Est Glomerular Filtrat Rate mL/min Glucose Level 64 #L Calcium Level 8.9 Total Bilirubin 6.9 H Direct 5.90 H Bilirubin Indirect 1.0 Bilirubin Aspartate Amino 105 H Transf (AST/SGO T) Alanine 54 Aminotransferas e (ALT/SGPT) Alkaline 264 H Phosphatase Total Protein 5.0 L Albumin 2.2 L Globulin 2.80 Albumin/Globuli 0.78 n Ratio Test 01/16/19 04:34 01/16/19 05:00 01/16/19 08:27 Lactic Acid 1.8 Level Blood Gas Blood arterial Specimen Source Arterial Blood 01/16/2019 4:15:2 Date Drawn 9 AM Arterial Blood 7.474 H pH (Temp corrected ) Arterial Blood 34.2 L pCO2 (Temp correct) Arterial Blood 79.6 L pO2 (Temp corrected ) Arterial Blood 24.6 HCO3 Arterial Blood 1.2 Base Excess Arterial Blood 95.3 Oxygen Saturati on [place] Test ACCEPTAB Arterial Blood Right Radial Gas Puncture Site Arterial 0.1 Blood Carboxyhe moglobin Arterial Blood 0.1 Methemoglobin Blood Gas A-a 238.4 H O2 Differential Oxyhemoglobin 95.1 Percent Blood Gas 37.0 Temperature Blood Gas 24.0 Respiration Rate Blood Gas 24 Actual Respiration Rat e Blood Gas VENT - AC Modality FiO2 50.0 Blood Gas Tidal 500.0 Volume Blood Gas Low 5.0 PEEP Setting Blood Gas [place] Notified Whom Blood Gas 01/16/2019 4:39:0 Notified Time 6 AM Bedside Glucose 73 Subjective 24 Hr Interval Summary Free Text/Dictation seen intubated. receiving dialysis. Exam/Review of Systems Exam Vitals Vital Signs Date Temp Pulse Resp B/P (MAP) Pulse Ox O2 O2 Flow FiO2 Time Delivery Rate 01/16/19 100.0 08:50 01/16/19 88 08:00 01/16/19 24 99 50 07:35 01/16/19 138/37 05:00 (70) 01/15/19 [place] 19:00 l Ventilato r 01/14/19 15.0 20:00 Intake and Output 01/15/19 01/15/19 01/16/19 1515:00 23:00 07:00 IntakeIntake Total 0 ml 445.09 ml 340.025 ml OutputOutput Total 0 ml BalanceBalance 0 ml 445.09 ml 340.025 ml Constitutional: obese, other (intubated and sedated ) Respiratory: diminished breath sounds Gastrointestinal: soft, non-tender Musculoskeletal: other (no obvious swelling ble ) Neurological: other (intubated and sedated) Results Results 24hrs Laboratory Tests Test 01/15/19 10:01 01/15/19 11:57 01/15/19 12:15 01/15/19 18:15 Blood Gas Blood arterial Blood arterial Specimen Source Arterial Blood 01/15/2019 10:31: 01/15/2019 6:35:5 Date Drawn 00 AM 5 PM Arterial Blood 7.445 7.465 H pH (Temp corrected ) Arterial Blood 45.3 H 40.2 pCO2 (Temp correct) Arterial Blood 56.9 L 90.0 pO2 (Temp corrected ) Arterial Blood 30.4 H 28.3 H HCO3 Arterial Blood 5.7 H 4.2 H Base Excess Arterial Blood 89.4 L 96.6 Oxygen Saturati on [place] Test ACCEPTAB ACCEPTAB Arterial Blood Left Radial Right Radial Gas Puncture Site Arterial 0.3 0.3 Blood Carboxyhe moglobin Arterial Blood 0.1 0.1 Methemoglobin Blood Gas A-a 284.9 H 365.9 H O2 Differential Oxyhemoglobin 89.0 L 96.2 Percent Blood Gas 37.0 37.0 Temperature Blood Gas HFNC VENT - AC Modality FiO2 55.0 70.0 Blood Gas PHILIPPE Mayer Notified Whom Blood Gas 01/15/2019 10:45: 01/15/2019 6:45:2 Notified Time 00 AM 8 PM Lactic Acid 1.8 Level Lipase 75 Hepatitis B NEGATIVE Surface Antigen Hepatitis B NEGATIVE Core Total Antibody Hepatitis C NEGATIVE Antibody Bedside Glucose 114 Blood Gas 24.0 Respiration Rate Blood Gas 24 Actual Respiration Rat e Blood Gas Tidal 500.0 Volume Blood Gas Low 5.0 PEEP Setting Test 01/15/19 21:26 01/16/19 01:30 01/16/19 04:00 01/16/19 04:22 Bedside Glucose 74 70 79 White Blood 25.7 H Count Red Blood Count 2.97 L Hemoglobin 9.4 L Hematocrit 29.0 L Mean 97.6 Corpuscular Volume Mean 31.6 Corpuscular Hemoglobin Mean 32.4 Corpuscular Hemoglobin Conc ent Red Cell 14.7 H Distribution Width Platelet Count 113 L Mean Platelet 12.0 H Volume Immature 1.500 H Granulocytes % Neutrophils % Segmented 76 Neutrophils % (Manual) Band 8 H Neutrophils % (Manual) Lymphocytes % Lymphocytes % 11 L (Manual) Monocytes % Eosinophils % Eosinophils % 4 (Manual) Basophils % Basophils % 1 (Manual) Nucleated Red 0.1 H Blood Cells % Immature 0.390 H Granulocytes # Neutrophils # Neutrophils # 20.0 H (Manual) Band 2.0 H Neutrophils # Lymphocytes 2.8 (Manual) Lymphocytes # Monocytes # Eosinophils # Basophils # Basophils # 0.2 H (Manual) Nucleated Red Blood Cells # Platelet DECREASED Estimate Giant Platelets 9 H Polychromasia 1+ Poikilocytosis 1+ Anisocytosis 1+ Macrocytosis 1+ Sodium Level 142 Potassium Level 3.9 Chloride Level 105 Carbon Dioxide 25 Level Anion Gap 12 Blood Urea 37 #H Nitrogen Creatinine 4.34 H Est Glomerular Filtrat Rate mL/min Glucose Level 64 #L Calcium Level 8.9 Total Bilirubin 6.9 H Direct 5.90 H Bilirubin Indirect 1.0 Bilirubin Aspartate Amino 105 H Transf (AST/SGO T) Alanine 54 Aminotransferas e (ALT/SGPT) Alkaline 264 H Phosphatase Total Protein 5.0 L Albumin 2.2 L Globulin 2.80 Albumin/Globuli 0.78 n Ratio Test 01/16/19 04:34 01/16/19 05:00 01/16/19 08:27 Lactic Acid 1.8 Level Blood Gas Blood arterial Specimen Source Arterial Blood 01/16/2019 4:15:2 Date Drawn 9 AM Arterial Blood 7.474 H pH (Temp corrected ) Arterial Blood 34.2 L pCO2 (Temp correct) Arterial Blood 79.6 L pO2 (Temp corrected ) Arterial Blood 24.6 HCO3 Arterial Blood 1.2 Base Excess Arterial Blood 95.3 Oxygen Saturati on [place] Test ACCEPTAB Arterial Blood Right Radial Gas Puncture Site Arterial 0.1 Blood Carboxyhe moglobin Arterial Blood 0.1 Methemoglobin Blood Gas A-a 238.4 H O2 Differential Oxyhemoglobin 95.1 Percent Blood Gas 37.0 Temperature Blood Gas 24.0 Respiration Rate Blood Gas 24 Actual Respiration Rat e Blood Gas VENT - AC Modality FiO2 50.0 Blood Gas Tidal 500.0 Volume Blood Gas Low 5.0 PEEP Setting Blood Gas [place] Notified Whom Blood Gas 01/16/2019 4:39:0 Notified Time 6 AM Bedside Glucose 73 Medications Medication Current Medications Vancomycin HCl (Vanco Iv Per Pharmacy) VANCOMYCIN PER PHARMACY PER PROTOCOL XX ; Start 01/13/19 at 02:00 IV Flush (NS 3 ml) 3 ml PER PROTOCOL IV ; Start 01/13/19 at 02:00 Acetaminophen (Tylenol Tab) 650 mg Q6H PRN PO .PAIN 1-3 OR TEMP Last administered on 01/16/19 08:05; Admin Dose 650 MG; Start 01/13/19 at 02:00 Acetaminophen/ Hydrocodone Bitart ([place] (5/325)) 1 tab Q6H PRN PO .PAIN 4-6 Last administered on 01/15/19 13:40; Admin Dose 1 TAB; Start 01/13/19 at 02:00 Docusate Sodium (Colace) 100 mg Q12H PRN PO .CONSTIPATION; Start 01/13/19 at 02:00 Bisacodyl (Dulcolax) 5 mg DAILY PRN PO .CONSTIPATION; Start 01/13/19 at 02:00 Heparin Sodium (Porcine) (Heparin (5000 Units/1ml)) 5,000 unit Q8 SC Last administered on 01/16/19 05:03; Admin Dose 5,000 UNIT; Start 01/13/19 at 06:00 Atorvastatin Calcium (Lipitor) 40 mg DAILY@21 PO Last administered on 01/13/19at 21:02; Admin Dose 40 MG; Start 01/13/19 at 21:00 Carvedilol (Coreg) 12.5 mg BID PO ; Start 01/13/19 at 09:00; Status Hold Doxazosin Mesylate (Cardura) 4 mg DAILY@21 PO ; Start 01/13/19 at 21:00 Ferrous Sulfate (Ferrous Sulfate (Ec)) 325 mg BID PO Last administered on 01/16/19 08:05; Admin Dose 325 MG; Start 01/13/19 at 09:00 Folic Acid (Folic Acid) 1 mg DAILY PO Last administered on 01/16/19 08:05; Admin Dose 1 MG; Start 01/13/19 at 09:00 Insulin Glargine (Lantus) 20 units QHS SC Last administered on 01/14/19 22:04; Admin Dose 20 UNITS; Start 01/13/19 at 21:00; Status Hold Aspirin (Aspirin) 81 mg DAILY PO Last administered on 01/16/19 08:05; Admin Dose 81 MG; Start 01/13/19 at 11:00 Miscellaneous Information 1 ea NOTE XX ; Start 01/13/19 at 15:30 Glucose (Glutose) 15 gm Q15M PRN PO DECREASED GLUCOSE; Start 01/13/19 at 15:30 Glucose (Glutose) 22.5 gm Q15M PRN PO DECREASED GLUCOSE; Start 01/13/19 at 15:30 Dextrose (D50w Syringe) 25 ml Q15M PRN IV DECREASED GLUCOSE; Start 01/13/19 at 15:30 Dextrose (D50w Syringe) 50 ml Q15M PRN IV DECREASED GLUCOSE; Start 01/13/19 at 15:30 Glucagon (Glucagen) 1 mg Q15M PRN IM DECREASED GLUCOSE; Start 01/13/19 at 15:30 Glucose (Glutose) 15 gm Q15M PRN BUCCAL DECREASED GLUCOSE; Start 01/13/19 at 15:30 Zolpidem Tartrate (Ambien) 10 mg HS PRN PO INSOMNIA Last administered on 01/13/19at 22:56; Admin Dose 10 MG; Start 01/13/19 at 23:00 Epoetin Cam-epbx (Retacrit (Esrd)) 4,000 unit TuThSa@1700 SC Last administered on 01/14/19at 17:52; Admin Dose 4,000 UNIT; Start 01/14/19 at 17:00 Levalbuterol (Xopenex Neb) 1.25 mg Q4H RESP THERAPY PRN HHN dyspnea; Start 01/14/19 at 19:00 Acetylcysteine (Mucomyst) 2 ml Q6H RESP THERAPY NEB Last administered on 01/16/19at 01:20; Admin Dose 2 ML; Start 01/15/19 at 02:00 Azithromycin 250 mg/Sodium Chloride 250 ml @ 250 mls/hr Q24H IVPB Last administered on 01/15/19at 18:19; Admin Dose 250 MLS/HR; Start 01/15/19 at 17:00 Fentanyl 100 ml @ 5 mls/hr TITRATE IV Last administered on 01/15/19at 18:20; Admin Dose 5 MLS/HR; Start 01/15/19 at 17:30 Meropenem/Sodium Chloride 50 ml @ 100 mls/hr Q12H IVPB Last administered on 01/16/19at 04:55; Admin Dose 100 MLS/HR; Start 01/15/19 at 17:30 Norepinephrine 250 ml @ 1.875 mls/ hr TITRATE IV Last administered on 01/16/19at 06:25; Admin Dose 24.375 MLS/HR; Start 01/15/19 at 17:30 Insulin Aspart (Novolog Insulin Pen) NOVOLOG *MILD* ALGORITHM Q4 SC ; Start 01/15/19 at 17:55 Ipratropium [place] (Atrovent Hfa) 4 puff Q6H RESP THERAPY INH Last administered on 01/16/19 01:20; Admin Dose 4 PUFF; Start 01/15/19 at 20:00 Albuterol (Ventolin Hfa) 4 puff Q6H RESP THERAPY INH Last administered on 01/16/19 01:20; Admin Dose 4 PUFF; Start 01/15/19 at 20:00 Famotidine (Pepcid Iv) 20 mg Q24H IV Last administered on 01/16/19 05:01; Admin Dose 20 MG; Start 01/16/19 at 06:00 Propofol 100 ml @ 2.46 mls/hr Q12H IV Last administered on 01/16/19 06:23; Admin Dose 9.84 MLS/HR; Start 01/15/19 at 23:00 Vasopressin 60 unit/Dextrose 60 ml @ 1.2 mls/hr Q12H IV Last administered on 01/16/19at 04:54; Admin Dose 1.2 MLS/HR; Start 01/16/19 at 02:30 SULEIMAN BOYD NP Jan 16, 2019 09:18
[2019-01-16] MEDS ORDERED: ALBUMIN HUMAN 25% 100 ML IV ONE (09:30)
--- NOTE | 2019-01-16 09:37 | CONS ---
Consult Date/Type/Reason Admit Date/Time January 13, 2019 at 00:07 Initial Consult Date 01/15/19 Type of Consult Pulmonary Date/Time of Note DATE: 01/16/19 TIME: 09:35 Subjective Intubated sedated requiring vasopressor support. Pending hemodialysis this morning. Objective Vital Signs Date Temp Pulse Resp B/P (MAP) Pulse Ox O2 O2 Flow FiO2 Time Delivery Rate 01/16/19 100.0 08:50 01/16/19 88 08:00 01/16/19 24 99 50 07:35 01/16/19 138/37 05:00 (70) 01/15/19 [place] 19:00 l Ventilato r 01/14/19 15.0 20:00 Intake and Output 01/15/19 01/15/19 01/16/19 1515:00 23:00 07:00 IntakeIntake Total 0 ml 445.09 ml 340.025 ml OutputOutput Total 0 ml BalanceBalance 0 ml 445.09 ml 340.025 ml Exam GENERAL: Elderly gentleman orally intubated on mechanical ventilation VITAL SIGNS: per chart NECK: Supple. No JVD or lymphadenopathy. CARDIAC EXAM: S1, S2. No added sounds or murmurs. CHEST: Diminished air entry bilaterally ABDOMEN: Soft, nontender. No guarding or rebound. EXTREMITIES: No cyanosis, clubbing or edema. NEUROLOGIC: Generalized weakness. No focal deficits. Vent Setting Ventilator Support Mode: AC Fraction of Inspired Oxygen pe: 50 Positive End Expiratory Pressu: 5.0 Results/Medications Result Diagram: 01/16/19 0400 01/16/19 0400 Results 24 hrs Laboratory Tests Test 01/15/19 10:01 01/15/19 11:57 01/15/19 12:15 01/15/19 18:15 Blood Gas Blood arterial Blood arterial Specimen Source Arterial Blood 01/15/2019 10:31: 01/15/2019 6:35:5 Date Drawn 00 AM 5 PM Arterial Blood 7.445 7.465 H pH (Temp corrected ) Arterial Blood 45.3 H 40.2 pCO2 (Temp correct) Arterial Blood 56.9 L 90.0 pO2 (Temp corrected ) Arterial Blood 30.4 H 28.3 H HCO3 Arterial Blood 5.7 H 4.2 H Base Excess Arterial Blood 89.4 L 96.6 Oxygen Saturati on [place] Test ACCEPTAB ACCEPTAB Arterial Blood Left Radial Right Radial Gas Puncture Site Arterial 0.3 0.3 Blood Carboxyhe moglobin Arterial Blood 0.1 0.1 Methemoglobin Blood Gas A-a 284.9 H 365.9 H O2 Differential Oxyhemoglobin 89.0 L 96.2 Percent Blood Gas 37.0 37.0 Temperature Blood Gas HFNC VENT - AC Modality FiO2 55.0 70.0 Blood Gas PHILIPPE Mayer Notified Whom Blood Gas 01/15/2019 10:45: 01/15/2019 6:45:2 Notified Time 00 AM 8 PM Lactic Acid 1.8 Level Lipase 75 Hepatitis B NEGATIVE Surface Antigen Hepatitis B NEGATIVE Core Total Antibody Hepatitis C NEGATIVE Antibody Bedside Glucose 114 Blood Gas 24.0 Respiration Rate Blood Gas 24 Actual Respiration Rat e Blood Gas Tidal 500.0 Volume Blood Gas Low 5.0 PEEP Setting Test 01/15/19 21:26 01/16/19 01:30 01/16/19 04:00 01/16/19 04:22 Bedside Glucose 74 70 79 White Blood 25.7 H Count Red Blood Count 2.97 L Hemoglobin 9.4 L Hematocrit 29.0 L Mean 97.6 Corpuscular Volume Mean 31.6 Corpuscular Hemoglobin Mean 32.4 Corpuscular Hemoglobin Conc ent Red Cell 14.7 H Distribution Width Platelet Count 113 L Mean Platelet 12.0 H Volume Immature 1.500 H Granulocytes % Neutrophils % Segmented 76 Neutrophils % (Manual) Band 8 H Neutrophils % (Manual) Lymphocytes % Lymphocytes % 11 L (Manual) Monocytes % Eosinophils % Eosinophils % 4 (Manual) Basophils % Basophils % 1 (Manual) Nucleated Red 0.1 H Blood Cells % Immature 0.390 H Granulocytes # Neutrophils # Neutrophils # 20.0 H (Manual) Band 2.0 H Neutrophils # Lymphocytes 2.8 (Manual) Lymphocytes # Monocytes # Eosinophils # Basophils # Basophils # 0.2 H (Manual) Nucleated Red Blood Cells # Platelet DECREASED Estimate Giant Platelets 9 H Polychromasia 1+ Poikilocytosis 1+ Anisocytosis 1+ Macrocytosis 1+ Sodium Level 142 Potassium Level 3.9 Chloride Level 105 Carbon Dioxide 25 Level Anion Gap 12 Blood Urea 37 #H Nitrogen Creatinine 4.34 H Est Glomerular Filtrat Rate mL/min Glucose Level 64 #L Calcium Level 8.9 Total Bilirubin 6.9 H Direct 5.90 H Bilirubin Indirect 1.0 Bilirubin Aspartate Amino 105 H Transf (AST/SGO T) Alanine 54 Aminotransferas e (ALT/SGPT) Alkaline 264 H Phosphatase Total Protein 5.0 L Albumin 2.2 L Globulin 2.80 Albumin/Globuli 0.78 n Ratio Test 01/16/19 04:34 01/16/19 05:00 01/16/19 08:27 Lactic Acid 1.8 Level Blood Gas Blood arterial Specimen Source Arterial Blood 01/16/2019 4:15:2 Date Drawn 9 AM Arterial Blood 7.474 H pH (Temp corrected ) Arterial Blood 34.2 L pCO2 (Temp correct) Arterial Blood 79.6 L pO2 (Temp corrected ) Arterial Blood 24.6 HCO3 Arterial Blood 1.2 Base Excess Arterial Blood 95.3 Oxygen Saturati on [place] Test ACCEPTAB Arterial Blood Right Radial Gas Puncture Site Arterial 0.1 Blood Carboxyhe moglobin Arterial Blood 0.1 Methemoglobin Blood Gas A-a 238.4 H O2 Differential Oxyhemoglobin 95.1 Percent Blood Gas 37.0 Temperature Blood Gas 24.0 Respiration Rate Blood Gas 24 Actual Respiration Rat e Blood Gas VENT - AC Modality FiO2 50.0 Blood Gas Tidal 500.0 Volume Blood Gas Low 5.0 PEEP Setting Blood Gas [place] Notified Whom Blood Gas 01/16/2019 4:39:0 Notified Time 6 AM Bedside Glucose 73 Medications Current Medications Vancomycin HCl (Vanco Iv Per Pharmacy) VANCOMYCIN PER PHARMACY PER PROTOCOL XX ; Start 01/13/19 at 02:00 IV Flush (NS 3 ml) 3 ml PER PROTOCOL IV ; Start 01/13/19 at 02:00 Acetaminophen (Tylenol Tab) 650 mg Q6H PRN PO .PAIN 1-3 OR TEMP Last administered on 01/16/19at 08:05; Admin Dose 650 MG; Start 01/13/19 at 02:00 Acetaminophen/ Hydrocodone Bitart ([place] (5/325)) 1 tab Q6H PRN PO .PAIN 4-6 Last administered on 01/15/19at 13:40; Admin Dose 1 TAB; Start 01/13/19 at 02:00 Docusate Sodium (Colace) 100 mg Q12H PRN PO .CONSTIPATION; Start 01/13/19 at 02:00 Bisacodyl (Dulcolax) 5 mg DAILY PRN PO .CONSTIPATION; Start 01/13/19 at 02:00 Heparin Sodium (Porcine) (Heparin (5000 Units/1ml)) 5,000 unit Q8 SC Last administered on 01/16/19at 05:03; Admin Dose 5,000 UNIT; Start 01/13/19 at 06:00 Atorvastatin Calcium (Lipitor) 40 mg DAILY@21 PO Last administered on 01/13/19at 21:02; Admin Dose 40 MG; Start 01/13/19 at 21:00 Carvedilol (Coreg) 12.5 mg BID PO ; Start 01/13/19 at 09:00; Status Hold Doxazosin Mesylate (Cardura) 4 mg DAILY@21 PO ; Start 01/13/19 at 21:00 Ferrous Sulfate (Ferrous Sulfate (Ec)) 325 mg BID PO Last administered on 01/16/19at 08:05; Admin Dose 325 MG; Start 01/13/19 at 09:00 Folic Acid (Folic Acid) 1 mg DAILY PO Last administered on 01/16/19at 08:05; Admin Dose 1 MG; Start 01/13/19 at 09:00 Insulin Glargine (Lantus) 20 units QHS SC Last administered on 01/14/19at 22:04; Admin Dose 20 UNITS; Start 01/13/19 at 21:00; Status Hold Aspirin (Aspirin) 81 mg DAILY PO Last administered on 01/16/19 08:05; Admin Dose 81 MG; Start 01/13/19 at 11:00 Miscellaneous Information 1 ea NOTE XX ; Start 01/13/19 at 15:30 Glucose (Glutose) 15 gm Q15M PRN PO DECREASED GLUCOSE; Start 01/13/19 at 15:30 Glucose (Glutose) 22.5 gm Q15M PRN PO DECREASED GLUCOSE; Start 01/13/19 at 15:30 Dextrose (D50w Syringe) 25 ml Q15M PRN IV DECREASED GLUCOSE; Start 01/13/19 at 15:30 Dextrose (D50w Syringe) 50 ml Q15M PRN IV DECREASED GLUCOSE; Start 01/13/19 at 15:30 Glucagon (Glucagen) 1 mg Q15M PRN IM DECREASED GLUCOSE; Start 01/13/19 at 15:30 Glucose (Glutose) 15 gm Q15M PRN BUCCAL DECREASED GLUCOSE; Start 01/13/19 at 15:30 Zolpidem Tartrate (Ambien) 10 mg HS PRN PO INSOMNIA Last administered on 01/13/19 22:56; Admin Dose 10 MG; Start 01/13/19 at 23:00 Epoetin Cam-epbx (Retacrit (Esrd)) 4,000 unit TuThSa@1700 SC Last administered on 01/14/19 17:52; Admin Dose 4,000 UNIT; Start 01/14/19 at 17:00 Levalbuterol (Xopenex Neb) 1.25 mg Q4H RESP THERAPY PRN HHN dyspnea; Start 01/14/19 at 19:00 Acetylcysteine (Mucomyst) 2 ml Q6H RESP THERAPY NEB Last administered on 01/16/19 01:20; Admin Dose 2 ML; Start 01/15/19 at 02:00 Azithromycin 250 mg/Sodium Chloride 250 ml @ 250 mls/hr Q24H IVPB Last administered on 01/15/19 18:19; Admin Dose 250 MLS/HR; Start 01/15/19 at 17:00 Fentanyl 100 ml @ 5 mls/hr TITRATE IV Last administered on 01/15/19 18:20; Admin Dose 5 MLS/HR; Start 01/15/19 at 17:30 Meropenem/Sodium Chloride 50 ml @ 100 mls/hr Q12H IVPB Last administered on 01/16/19 04:55; Admin Dose 100 MLS/HR; Start 01/15/19 at 17:30 Norepinephrine 250 ml @ 1.875 mls/ hr TITRATE IV Last administered on 01/16/19 06:25; Admin Dose 24.375 MLS/HR; Start 01/15/19 at 17:30 Insulin Aspart (Novolog Insulin Pen) NOVOLOG *MILD* ALGORITHM Q4 SC ; Start 01/15/19 at 17:55 Ipratropium [place] (Atrovent Hfa) 4 puff Q6H RESP THERAPY INH Last administered on 01/16/19 01:20; Admin Dose 4 PUFF; Start 01/15/19 at 20:00 Albuterol (Ventolin Hfa) 4 puff Q6H RESP THERAPY INH Last administered on 01/16/19 01:20; Admin Dose 4 PUFF; Start 01/15/19 at 20:00 Famotidine (Pepcid Iv) 20 mg Q24H IV Last administered on 6/3/19at 05:01; Admin Dose 20 MG; Start 01/16/19 at 06:00 Propofol 100 ml @ 2.46 mls/hr Q12H IV Last administered on 01/16/19at 06:23; Admin Dose 9.84 MLS/HR; Start 01/15/19 at 23:00 Vasopressin 60 unit/Dextrose 60 ml @ 1.2 mls/hr Q12H IV Last administered on 01/16/19at 04:54; Admin Dose 1.2 MLS/HR; Start 01/16/19 at 02:30 Albumin Human 100 ml @ 100 mls/hr ONCE ONCE IV ; Start 01/16/19 at 09:30; Stop 01/16/19 at 10:29 Phenylephrine HCl 250 ml @ 75 mls/hr TITRATE IV ; Start 01/16/19 at 10:30 Assessment/Plan Hospital Course (Demo Recall) IMP: 1. Hypoxemic and hypercapnic respiratory failure 2. Extensive CAP vs. HCAP 3. Persistent leukocytosis 4. AMS--likely toxic-metabolic encephalopathy 5. ESRD on HD 6. HTN 7. CAD 8. Septic shock secondary to above RECS: 1. Continue mechanical ventilation 2. IV fluids vasopressors trend lactic acid 3. Continue broad-spectrum antibiotics pending cultures 4. Start tube feeding as tolerated 5. Hemodialysis as tolerated Critical care time 40 minutes Overall prognosis guarded [facility] AGUIAR MD, [facility] Jan 16, 2019 09:37
[2019-01-16] MEDS: FENTAnyl (DRIP) 1000 mcg/100mL 100 ML IV SCH (10:41)
--- NOTE | 2019-01-16 11:57 | CONS ---
Assessment/Plan Assessment/Plan Assessment/Plan (Daily) 73 y/o with Hospital Course (Demo Recall) 1. End-stage renal disease on hemodialysis. hemodialysis Wednesday, and Wednesday via left arm AV fistula 2. Septic shock , likely secondary to pneumonia/ cholecystitis. 3. Elevated trop 4. Hypokalemia, resolved. 5. Leukocytosis. 6. Shortness of breath, cough, weakness, leukocytosis of 26.8, likely secondary to pneumonia. with hypoxic and hypercapnic resp failure 7. Hyperbilirubinemia, abnormal liver function tests. 8. Impending respiratory failure, likely secondary to pneumonia. 9. Hypertension, currently hypotensive 10. Dyslipidemia. 11. Diabetes. 12. Anemia chronic disease 13. encephalopathy, ALOC 14 Respiratory failure s/p intubation Assessment/Plan (Daily) -on vent - cw pressor support, albumin prn - HD today with low blood flow -avoid nephrotoxic drugs -c/w Epogen after HD -cw vanco/meropenam Consultation Date/Type/Reason Admit Date/Time January 13, 2019 at 00:07 Initial Consult Date 01/15/19 Date/Time of Note DATE: 01/16/19 TIME: 11:52 24 HR Interval Summary Free Text/Dictation Currently on 2 pressors. Intubated on 50% FiO2 Exam/Review of Systems Exam Vitals Vital Signs Date Temp Pulse Resp B/P (MAP) Pulse Ox O2 O2 Flow FiO2 Time Delivery Rate 01/16/19 89 11:35 01/16/19 23 130/36 100 Mechanica 10:00 (67) l Ventilato r 01/16/19 50 09:30 01/16/19 100.0 08:50 01/14/19 15.0 20:00 Intake and Output 01/15/19 01/15/19 01/16/19 1515:00 23:00 07:00 IntakeIntake Total 0 ml 445.09 ml 384.475 ml OutputOutput Total 0 ml 0 ml BalanceBalance 0 ml 445.09 ml 384.475 ml Exam intubated , left arm AV fistula Head: normocephalic Neck: supple Respiratory: diminished breath sounds, wheezing (left lung) Cardiovascular: regular rate and rhythm Gastrointestinal: soft, nl liver, spleen, non-tender, ascites, bowel sounds, distended, firm, hepatomegaly, mass, rebound or guarding, splenomegaly, surgical scars, tender, other (pos. Richter sign) Skin: other (pale) edema trace Results Result Diagram: 01/16/19 0400 01/16/19 0400 Results 24hrs Laboratory Tests Test 01/15/19 11:57 01/15/19 12:15 01/15/19 18:15 01/15/19 21:26 Lactic Acid 1.8 Level Lipase 75 Hepatitis B NEGATIVE Surface Antigen Hepatitis B Core NEGATIVE Total Antibody Hepatitis C NEGATIVE Antibody Bedside Glucose 114 74 Blood Gas Blood arterial Specimen Source Arterial Blood 01/15/2019 6:35:55 Date Drawn PM Arterial Blood 7.465 H pH (Temp corrected) Arterial Blood 40.2 pCO2 (Temp correct) Arterial Blood 90.0 pO2 (Temp corrected) Arterial Blood 28.3 H HCO3 Arterial Blood 4.2 H Base Excess Arterial Blood 96.6 Oxygen Saturatio n [place] Test ACCEPTAB Arterial Blood Right Radial Gas Puncture Site Arterial 0.3 Blood Carboxyhem oglobin Arterial Blood 0.1 Methemoglobin Blood Gas A-a O2 365.9 H Differential Oxyhemoglobin 96.2 Percent Blood Gas 37.0 Temperature Blood Gas 24.0 Respiration Rate Blood Gas Actual 24 Respiration Rate Blood Gas VENT - AC Modality FiO2 70.0 Blood Gas Tidal 500.0 Volume Blood Gas Low 5.0 PEEP Setting Blood Gas M.D. Notified Whom Blood Gas 01/15/2019 6:45:28 Notified Time PM Test 01/16/19 01:30 01/16/19 04:00 01/16/19 04:22 01/16/19 04:34 Bedside Glucose 70 79 White Blood 25.7 H Count Red Blood Count 2.97 L Hemoglobin 9.4 L Hematocrit 29.0 L Mean Corpuscular 97.6 Volume Mean Corpuscular 31.6 Hemoglobin Mean Corpuscular 32.4 Hemoglobin Joie nt Red Cell 14.7 H Distribution Width Platelet Count 113 L Mean Platelet 12.0 H Volume Immature 1.500 H Granulocytes % Neutrophils % Segmented 76 Neutrophils % (Manual) Band Neutrophils 8 H % (Manual) Lymphocytes % Lymphocytes % 11 L (Manual) Monocytes % Eosinophils % Eosinophils % 4 (Manual) Basophils % Basophils % 1 (Manual) Nucleated Red 0.1 H Blood Cells % Immature 0.390 H Granulocytes # Neutrophils # Neutrophils # 20.0 H (Manual) Band Neutrophils 2.0 H # Lymphocytes 2.8 (Manual) Lymphocytes # Monocytes # Eosinophils # Basophils # Basophils # 0.2 H (Manual) Nucleated Red Blood Cells # Platelet DECREASED Estimate Giant Platelets 9 H Polychromasia 1+ Poikilocytosis 1+ Anisocytosis 1+ Macrocytosis 1+ Sodium Level 142 Potassium Level 3.9 Chloride Level 105 Carbon Dioxide 25 Level Anion Gap 12 Blood Urea 37 #H Nitrogen Creatinine 4.34 H Est Glomerular Filtrat Rate mL/min Glucose Level 64 #L Calcium Level 8.9 Total Bilirubin 6.9 H Direct Bilirubin 5.90 H Indirect 1.0 Bilirubin Aspartate Amino 105 H Transf (AST/SGOT ) Alanine 54 Aminotransferase (ALT/SGPT) Alkaline 264 H Phosphatase Total Protein 5.0 L Albumin 2.2 L Globulin 2.80 Albumin/Globulin 0.78 Ratio Lactic Acid 1.8 Level Test 01/16/19 05:00 01/16/19 08:27 Blood Gas Blood arterial Specimen Source Arterial Blood 01/16/2019 4:15:29 Date Drawn AM Arterial Blood 7.474 H pH (Temp corrected) Arterial Blood 34.2 L pCO2 (Temp correct) Arterial Blood 79.6 L pO2 (Temp corrected) Arterial Blood 24.6 HCO3 Arterial Blood 1.2 Base Excess Arterial Blood 95.3 Oxygen Saturatio n [place] Test ACCEPTAB Arterial Blood Right Radial Gas Puncture Site Arterial 0.1 Blood Carboxyhem oglobin Arterial Blood 0.1 Methemoglobin Blood Gas A-a O2 238.4 H Differential Oxyhemoglobin 95.1 Percent Blood Gas 37.0 Temperature Blood Gas 24.0 Respiration Rate Blood Gas Actual 24 Respiration Rate Blood Gas VENT - AC Modality FiO2 50.0 Blood Gas Tidal 500.0 Volume Blood Gas Low 5.0 PEEP Setting Blood Gas [place] Notified Whom Blood Gas 01/16/2019 4:39:06 Notified Time AM Bedside Glucose 73 Medications Medication Current Medications Vancomycin HCl (Vanco Iv Per Pharmacy) VANCOMYCIN PER PHARMACY PER PROTOCOL XX ; Start 01/13/19 at 02:00 IV Flush (NS 3 ml) 3 ml PER PROTOCOL IV ; Start 01/13/19 at 02:00 Acetaminophen (Tylenol Tab) 650 mg Q6H PRN PO .PAIN 1-3 OR TEMP Last administered on 01/16/19at 08:05; Admin Dose 650 MG; Start 01/13/19 at 02:00 Acetaminophen/ Hydrocodone Bitart ([place] (5/325)) 1 tab Q6H PRN PO .PAIN 4-6 Last administered on 01/15/19at 13:40; Admin Dose 1 TAB; Start 01/13/19 at 02:00 Docusate Sodium (Colace) 100 mg Q12H PRN PO .CONSTIPATION; Start 01/13/19 at 02:00 Bisacodyl (Dulcolax) 5 mg DAILY PRN PO .CONSTIPATION; Start 01/13/19 at 02:00 Heparin Sodium (Porcine) (Heparin (5000 Units/1ml)) 5,000 unit Q8 SC Last administered on 01/16/19at 05:03; Admin Dose 5,000 UNIT; Start 01/13/19 at 06:00 Atorvastatin Calcium (Lipitor) 40 mg DAILY@21 PO Last administered on 01/13/19at 21:02; Admin Dose 40 MG; Start 01/13/19 at 21:00 Carvedilol (Coreg) 12.5 mg BID PO ; Start 01/13/19 at 09:00; Status Hold Doxazosin Mesylate (Cardura) 4 mg DAILY@21 PO ; Start 01/13/19 at 21:00 Ferrous Sulfate (Ferrous Sulfate (Ec)) 325 mg BID PO Last administered on 01/16/19at 08:05; Admin Dose 325 MG; Start 01/13/19 at 09:00 Folic Acid (Folic Acid) 1 mg DAILY PO Last administered on 01/16/19at 08:05; Admin Dose 1 MG; Start 01/13/19 at 09:00 Insulin Glargine (Lantus) 20 units QHS SC Last administered on 01/14/19at 22:04; Admin Dose 20 UNITS; Start 01/13/19 at 21:00; Status Hold Aspirin (Aspirin) 81 mg DAILY PO Last administered on 01/16/19 08:05; Admin Dose 81 MG; Start 01/13/19 at 11:00 Miscellaneous Information 1 ea NOTE XX ; Start 01/13/19 at 15:30 Glucose (Glutose) 15 gm Q15M PRN PO DECREASED GLUCOSE; Start 01/13/19 at 15:30 Glucose (Glutose) 22.5 gm Q15M PRN PO DECREASED GLUCOSE; Start 01/13/19 at 15:30 Dextrose (D50w Syringe) 25 ml Q15M PRN IV DECREASED GLUCOSE; Start 01/13/19 at 15:30 Dextrose (D50w Syringe) 50 ml Q15M PRN IV DECREASED GLUCOSE; Start 01/13/19 at 15:30 Glucagon (Glucagen) 1 mg Q15M PRN IM DECREASED GLUCOSE; Start 01/13/19 at 15:30 Glucose (Glutose) 15 gm Q15M PRN BUCCAL DECREASED GLUCOSE; Start 01/13/19 at 15:30 Zolpidem Tartrate (Ambien) 10 mg HS PRN PO INSOMNIA Last administered on 01/13/19at 22:56; Admin Dose 10 MG; Start 01/13/19 at 23:00 Epoetin Cam-epbx (Retacrit (Esrd)) 4,000 unit TuThSa@1700 SC Last administered on 01/14/19at 17:52; Admin Dose 4,000 UNIT; Start 01/14/19 at 17:00 Levalbuterol (Xopenex Neb) 1.25 mg Q4H RESP THERAPY PRN HHN dyspnea; Start 01/14/19 at 19:00 Acetylcysteine (Mucomyst) 2 ml Q6H RESP THERAPY NEB Last administered on 01/16/19at 01:20; Admin Dose 2 ML; Start 01/15/19 at 02:00 Azithromycin 250 mg/Sodium Chloride 250 ml @ 250 mls/hr Q24H IVPB Last administered on 01/15/19at 18:19; Admin Dose 250 MLS/HR; Start 01/15/19 at 17:00 Fentanyl 100 ml @ 5 mls/hr TITRATE IV Last administered on 01/16/19at 10:41; Admin Dose 5 MLS/HR; Start 01/15/19 at 17:30 Meropenem/Sodium Chloride 50 ml @ 100 mls/hr Q12H IVPB Last administered on 01/16/19at 04:55; Admin Dose 100 MLS/HR; Start 01/15/19 at 17:30 Norepinephrine 250 ml @ 1.875 mls/ hr TITRATE IV Last administered on 01/16/19at 06:25; Admin Dose 24.375 MLS/HR; Start 01/15/19 at 17:30 Insulin Aspart (Novolog Insulin Pen) NOVOLOG *MILD* ALGORITHM Q4 SC ; Start 01/15/19 at 17:55 Ipratropium [place] (Atrovent Hfa) 4 puff Q6H RESP THERAPY INH Last administered on 01/16/19at 01:20; Admin Dose 4 PUFF; Start 01/15/19 at 20:00 Albuterol (Ventolin Hfa) 4 puff Q6H RESP THERAPY INH Last administered on 01/16/19at 01:20; Admin Dose 4 PUFF; Start 01/15/19 at 20:00 Famotidine (Pepcid Iv) 20 mg Q24H IV Last administered on 01/16/19at 05:01; Admin Dose 20 MG; Start 01/16/19 at 06:00 Propofol 100 ml @ 2.46 mls/hr Q12H IV Last administered on 01/16/19at 06:23; Admin Dose 9.84 MLS/HR; Start 01/15/19 at 23:00 Vasopressin 60 unit/Dextrose 60 ml @ 1.2 mls/hr Q12H IV Last administered on 01/16/19at 04:54; Admin Dose 1.2 MLS/HR; Start 01/16/19 at 02:30 Phenylephrine HCl 250 ml @ 75 mls/hr TITRATE IV ; Start 01/16/19 at 10:30 JUAN NOLAND MD Jan 16, 2019 11:57
--- NOTE | 2019-01-16 13:13 | CONS ---
Assessment/Plan Assessment/Plan Hospital Course (Demo Recall) No acute changes overnight patient is status post hemodialysis intubated on multiple pressors. He is in no distress. WBC 25.7 H&H 9.4 and 29 platelets 113 Microbiology: Blood cultures remain negative Indwelling's endotracheal tube, NG tube, right IJ triple-lumen catheter, left upper extremity AV fistula Antimicrobials: Vancomycin, meropenem, Zithromax Physical examination: Chronically ill-appearing elderly man who is intubated sedated in no distress. Head atraumatic normocephalic sclera nonicteric vehicle mucosa dry. Neck is supple chest rise symmetrical breath sounds diminished bases. Heart: S1-S2. Abdomen soft bowel sounds present. Extremities with bilateral edema. Assessment: 1. Severe sepsis with shock 2. Acute hypoxemic respiratory failure 3. Healthcare associated pneumonia possibly aspirated 4. CHF 5. End-stage renal disease, hemodialysis dependent 6. Coronary artery disease Plan: Patient is doing poorly, on double pressor support, still with significant leukocytosis, will order sputum culture, add empiric antifungal coverage Consultation Date/Type/Reason Admit Date/Time January 13, 2019 at 00:07 Initial Consult Date 01/15/19 Type of Consult id Date/Time of Note DATE: 01/16/19 TIME: 13:12 Exam/Review of Systems Exam Vitals Vital Signs Date Temp Pulse Resp B/P (MAP) Pulse Ox O2 O2 Flow FiO2 Time Delivery Rate 01/16/19 89 12:00 01/16/19 20 100 50 11:35 01/16/19 130/36 Mechanica 10:00 (67) l Ventilato r 01/16/19 100.0 08:50 01/14/19 15.0 20:00 Intake and Output 01/15/19 01/15/19 01/16/19 1515:00 23:00 07:00 IntakeIntake Total 0 ml 445.09 ml 384.475 ml OutputOutput Total 0 ml 0 ml BalanceBalance 0 ml 445.09 ml 384.475 ml Results Result Diagram: 01/16/19 0400 01/16/19 0400 Results 24hrs Laboratory Tests Test 01/15/19 18:15 01/15/19 21:26 01/16/19 01:30 01/16/19 04:00 Blood Gas Blood arterial Specimen Source Arterial Blood 01/15/2019 6:35:55 Date Drawn PM Arterial Blood 7.465 H pH (Temp corrected) Arterial Blood 40.2 pCO2 (Temp correct) Arterial Blood 90.0 pO2 (Temp corrected) Arterial Blood 28.3 H HCO3 Arterial Blood 4.2 H Base Excess Arterial Blood 96.6 Oxygen Saturatio n [place] Test ACCEPTAB Arterial Blood Right Radial Gas Puncture Site Arterial 0.3 Blood Carboxyhem oglobin Arterial Blood 0.1 Methemoglobin Blood Gas A-a O2 365.9 H Differential Oxyhemoglobin 96.2 Percent Blood Gas 37.0 Temperature Blood Gas 24.0 Respiration Rate Blood Gas Actual 24 Respiration Rate Blood Gas VENT - AC Modality FiO2 70.0 Blood Gas Tidal 500.0 Volume Blood Gas Low 5.0 PEEP Setting Blood Gas M.D. Notified Whom Blood Gas 01/15/2019 6:45:28 Notified Time PM Bedside Glucose 74 70 White Blood 25.7 H Count Red Blood Count 2.97 L Hemoglobin 9.4 L Hematocrit 29.0 L Mean Corpuscular 97.6 Volume Mean Corpuscular 31.6 Hemoglobin Mean Corpuscular 32.4 Hemoglobin Joie nt Red Cell 14.7 H Distribution Width Platelet Count 113 L Mean Platelet 12.0 H Volume Immature 1.500 H Granulocytes % Neutrophils % Segmented 76 Neutrophils % (Manual) Band Neutrophils 8 H % (Manual) Lymphocytes % Lymphocytes % 11 L (Manual) Monocytes % Eosinophils % Eosinophils % 4 (Manual) Basophils % Basophils % 1 (Manual) Nucleated Red 0.1 H Blood Cells % Immature 0.390 H Granulocytes # Neutrophils # Neutrophils # 20.0 H (Manual) Band Neutrophils 2.0 H # Lymphocytes 2.8 (Manual) Lymphocytes # Monocytes # Eosinophils # Basophils # Basophils # 0.2 H (Manual) Nucleated Red Blood Cells # Platelet DECREASED Estimate Giant Platelets 9 H Polychromasia 1+ Poikilocytosis 1+ Anisocytosis 1+ Macrocytosis 1+ Sodium Level 142 Potassium Level 3.9 Chloride Level 105 Carbon Dioxide 25 Level Anion Gap 12 Blood Urea 37 #H Nitrogen Creatinine 4.34 H Est Glomerular Filtrat Rate mL/min Glucose Level 64 #L Calcium Level 8.9 Total Bilirubin 6.9 H Direct Bilirubin 5.90 H Indirect 1.0 Bilirubin Aspartate Amino 105 H Transf (AST/SGOT ) Alanine 54 Aminotransferase (ALT/SGPT) Alkaline 264 H Phosphatase Total Protein 5.0 L Albumin 2.2 L Globulin 2.80 Albumin/Globulin 0.78 Ratio Test 01/16/19 04:22 01/16/19 04:34 01/16/19 05:00 01/16/19 08:27 Bedside Glucose 79 73 Lactic Acid 1.8 Level Blood Gas Blood arterial Specimen Source Arterial Blood 01/16/2019 4:15:29 Date Drawn AM Arterial Blood 7.474 H pH (Temp corrected) Arterial Blood 34.2 L pCO2 (Temp correct) Arterial Blood 79.6 L pO2 (Temp corrected) Arterial Blood 24.6 HCO3 Arterial Blood 1.2 Base Excess Arterial Blood 95.3 Oxygen Saturatio n [place] Test ACCEPTAB Arterial Blood Right Radial Gas Puncture Site Arterial 0.1 Blood Carboxyhem oglobin Arterial Blood 0.1 Methemoglobin Blood Gas A-a O2 238.4 H Differential Oxyhemoglobin 95.1 Percent Blood Gas 37.0 Temperature Blood Gas 24.0 Respiration Rate Blood Gas Actual 24 Respiration Rate Blood Gas VENT - AC Modality FiO2 50.0 Blood Gas Tidal 500.0 Volume Blood Gas Low 5.0 PEEP Setting Blood Gas [place] Notified Whom Blood Gas 01/16/2019 4:39:06 Notified Time AM Test 01/16/19 12:25 Bedside Glucose 72 Medications Medication Current Medications Vancomycin HCl (Vanco Iv Per Pharmacy) VANCOMYCIN PER PHARMACY PER PROTOCOL XX ; Start 01/13/19 at 02:00 IV Flush (NS 3 ml) 3 ml PER PROTOCOL IV ; Start 01/13/19 at 02:00 Acetaminophen (Tylenol Tab) 650 mg Q6H PRN PO .PAIN 1-3 OR TEMP Last administered on 01/16/19at 08:05; Admin Dose 650 MG; Start 01/13/19 at 02:00 Acetaminophen/ Hydrocodone Bitart ([place] (5/325)) 1 tab Q6H PRN PO .PAIN 4-6 Last administered on 01/15/19at 13:40; Admin Dose 1 TAB; Start 01/13/19 at 02:00 Docusate Sodium (Colace) 100 mg Q12H PRN PO .CONSTIPATION; Start 01/13/19 at 02:00 Bisacodyl (Dulcolax) 5 mg DAILY PRN PO .CONSTIPATION; Start 01/13/19 at 02:00 Heparin Sodium (Porcine) (Heparin (5000 Units/1ml)) 5,000 unit Q8 SC Last administered on 01/16/19at 05:03; Admin Dose 5,000 UNIT; Start 01/13/19 at 06:00 Atorvastatin Calcium (Lipitor) 40 mg DAILY@21 PO Last administered on 01/13/19at 21:02; Admin Dose 40 MG; Start 01/13/19 at 21:00 Carvedilol (Coreg) 12.5 mg BID PO ; Start 01/13/19 at 09:00; Status Hold Doxazosin Mesylate (Cardura) 4 mg DAILY@21 PO ; Start 01/13/19 at 21:00 Ferrous Sulfate (Ferrous Sulfate (Ec)) 325 mg BID PO Last administered on 01/16/19 08:05; Admin Dose 325 MG; Start 01/13/19 at 09:00 Folic Acid (Folic Acid) 1 mg DAILY PO Last administered on 01/16/19at 08:05; Admin Dose 1 MG; Start 01/13/19 at 09:00 Insulin Glargine (Lantus) 20 units QHS SC Last administered on 01/14/19at 22:04; Admin Dose 20 UNITS; Start 01/13/19 at 21:00; Status Hold Aspirin (Aspirin) 81 mg DAILY PO Last administered on 01/16/19 08:05; Admin Dose 81 MG; Start 01/13/19 at 11:00 Miscellaneous Information 1 ea NOTE XX ; Start 01/13/19 at 15:30 Glucose (Glutose) 15 gm Q15M PRN PO DECREASED GLUCOSE; Start 01/13/19 at 15:30 Glucose (Glutose) 22.5 gm Q15M PRN PO DECREASED GLUCOSE; Start 01/13/19 at 15: 30 Dextrose (D50w Syringe) 25 ml Q15M PRN IV DECREASED GLUCOSE; Start 01/13/19 at 15:30 Dextrose (D50w Syringe) 50 ml Q15M PRN IV DECREASED GLUCOSE; Start 01/13/19 at 15:30 Glucagon (Glucagen) 1 mg Q15M PRN IM DECREASED GLUCOSE; Start 01/13/19 at 15:30 Glucose (Glutose) 15 gm Q15M PRN BUCCAL DECREASED GLUCOSE; Start 01/13/19 at 15:30 Zolpidem Tartrate (Ambien) 10 mg HS PRN PO INSOMNIA Last administered on 01/13/19at 22:56; Admin Dose 10 MG; Start 01/13/19 at 23:00 Epoetin Cam-epbx (Retacrit (Esrd)) 4,000 unit TuThSa@1700 SC Last administered on 01/14/19at 17:52; Admin Dose 4,000 UNIT; Start 01/14/19 at 17:00 Levalbuterol (Xopenex Neb) 1.25 mg Q4H RESP THERAPY PRN HHN dyspnea; Start 01/14/19 at 19:00 Acetylcysteine (Mucomyst) 2 ml Q6H RESP THERAPY NEB Last administered on 01/16/19 01:20; Admin Dose 2 ML; Start 01/15/19 at 02:00 Azithromycin 250 mg/Sodium Chloride 250 ml @ 250 mls/hr Q24H IVPB Last administered on 01/15/19 18:19; Admin Dose 250 MLS/HR; Start 01/15/19 at 17:00 Fentanyl 100 ml @ 5 mls/hr TITRATE IV Last administered on 01/16/19at 10:41; Admin Dose 5 MLS/HR; Start 01/15/19 at 17:30 Meropenem/Sodium Chloride 50 ml @ 100 mls/hr Q12H IVPB Last administered on 01/16/19at 04:55; Admin Dose 100 MLS/HR; Start 01/15/19 at 17:30 Norepinephrine 250 ml @ 1.875 mls/ hr TITRATE IV Last administered on 01/16/19at 06:25; Admin Dose 24.375 MLS/HR; Start 01/15/19 at 17:30 Insulin Aspart (Novolog Insulin Pen) NOVOLOG *MILD* ALGORITHM Q4 SC ; Start 01/15/19 at 17:55 Ipratropium [place] (Atrovent Hfa) 4 puff Q6H RESP THERAPY INH Last administered on 01/16/19 01:20; Admin Dose 4 PUFF; Start 01/15/19 at 20:00 Albuterol (Ventolin Hfa) 4 puff Q6H RESP THERAPY INH Last administered on 01/16/19 01:20; Admin Dose 4 PUFF; Start 01/15/19 at 20:00 Famotidine (Pepcid Iv) 20 mg Q24H IV Last administered on 01/16/19 05:01; Admin Dose 20 MG; Start 01/16/19 at 06:00 Propofol 100 ml @ 2.46 mls/hr Q12H IV Last administered on 01/16/19at 06:23; Admin Dose 9.84 MLS/HR; Start 01/15/19 at 23:00 Vasopressin 60 unit/Dextrose 60 ml @ 1.2 mls/hr Q12H IV Last administered on 01/16/19at 04:54; Admin Dose 1.2 MLS/HR; Start 01/16/19 at 02:30 Phenylephrine HCl 250 ml @ 75 mls/hr TITRATE IV ; Start 01/16/19 at 10:30 REJI RUBIO NP Jan 16, 2019 13:12
[2019-01-16] MEDS ORDERED: CASPOFUNGIN 70 MG in SOD CHLORIDE 0.9% 250 ML IVPB ONE (15:00)
--- NOTE | 2019-01-16 15:11 | CONS ---
Assessment/Plan Assessment/Plan Hospital Course (Demo Recall) Shock, likely secondary to sepsis Vent dependent respiratory failure Severe hypotension on IV pressors Sepsis secondary to pneumonia Preserved left ventricular ejection fraction Minimally elevated troponin CAD with history of CABG End-stage renal disease on hemodialysis Diabetes Hypertension Dyslipidemia -Patient transferred to the ICU secondary to worsening respiratory status and hypotension. He is status post intubation and is on IV pressors Titrate IV pressors to maintain SBP greater than 90 and/or map above 60. Requirements have decreased since patient finished hemodialysis Vent management as per pulmonary Would hold all patient's antihypertensives including doxazosin Fluid management via hemodialysis as per nephrology Antibiotics as per infectious disease Continue aspirin and statin therapy if no contraindication Greater than 33 minutes of critical care time taken in the care of this patient Consultation Date/Type/Reason Admit Date/Time January 13, 2019 at 00:07 Initial Consult Date 01/15/19 Type of Consult Cardiology Date/Time of Note DATE: 01/16/19 TIME: 15:07 24 HR Interval Summary Free Text/Dictation Patient with worsening respiratory status and hypotension and transferred to ICU. Patient intubated and on IV pressors. As per nurse, IV pressors have been titrated Exam/Review of Systems Vital Signs Vitals Vital Signs Date Temp Pulse Resp B/P (MAP) Pulse Ox O2 O2 Flow FiO2 Time Delivery Rate 01/16/19 88 21 123/39 100 Mechanical 14:13 (67) Ventilator T Tube 01/16/19 50 13:48 01/16/19 99.1 12:30 01/14/19 15.0 20:00 Intake and Output 01/15/19 01/15/19 01/16/19 1515:00 23:00 07:00 IntakeIntake Total 0 ml 445.09 ml 384.475 ml OutputOutput Total 0 ml 0 ml BalanceBalance 0 ml 445.09 ml 384.475 ml Exam Exam Sedated and intubated, no apparent distress Head: normocephalic ENMT: intubated Respiratory: other (Coarse breath sounds bilaterally, no wheezing) Cardiovascular: regular rate and rhythm (S1-S2 heard) Gastrointestinal: soft, bowel sounds, other (No grimacing with palpation) Extremities: edema (Trace) Neurological: other (Sedated) Labs Result Diagram: 01/16/19 0400 01/16/19 0400 Results 24hrs Laboratory Tests Test 01/15/19 18:15 01/15/19 21:26 01/16/19 01:30 01/16/19 04:00 Blood Gas Blood arterial Specimen Source Arterial Blood 01/15/2019 6:35:55 Date Drawn PM Arterial Blood 7.465 H pH (Temp corrected) Arterial Blood 40.2 pCO2 (Temp correct) Arterial Blood 90.0 pO2 (Temp corrected) Arterial Blood 28.3 H HCO3 Arterial Blood 4.2 H Base Excess Arterial Blood 96.6 Oxygen Saturatio n [place] Test ACCEPTAB Arterial Blood Right Radial Gas Puncture Site Arterial 0.3 Blood Carboxyhem oglobin Arterial Blood 0.1 Methemoglobin Blood Gas A-a O2 365.9 H Differential Oxyhemoglobin 96.2 Percent Blood Gas 37.0 Temperature Blood Gas 24.0 Respiration Rate Blood Gas Actual 24 Respiration Rate Blood Gas VENT - AC Modality FiO2 70.0 Blood Gas Tidal 500.0 Volume Blood Gas Low 5.0 PEEP Setting Blood Gas M.D. Notified Whom Blood Gas 01/15/2019 6:45:28 Notified Time PM Bedside Glucose 74 70 White Blood 25.7 H Count Red Blood Count 2.97 L Hemoglobin 9.4 L Hematocrit 29.0 L Mean Corpuscular 97.6 Volume Mean Corpuscular 31.6 Hemoglobin Mean Corpuscular 32.4 Hemoglobin Joie nt Red Cell 14.7 H Distribution Width Platelet Count 113 L Mean Platelet 12.0 H Volume Immature 1.500 H Granulocytes % Neutrophils % Segmented 76 Neutrophils % (Manual) Band Neutrophils 8 H % (Manual) Lymphocytes % Lymphocytes % 11 L (Manual) Monocytes % Eosinophils % Eosinophils % 4 (Manual) Basophils % Basophils % 1 (Manual) Nucleated Red 0.1 H Blood Cells % Immature 0.390 H Granulocytes # Neutrophils # Neutrophils # 20.0 H (Manual) Band Neutrophils 2.0 H # Lymphocytes 2.8 (Manual) Lymphocytes # Monocytes # Eosinophils # Basophils # Basophils # 0.2 H (Manual) Nucleated Red Blood Cells # Platelet DECREASED Estimate Giant Platelets 9 H Polychromasia 1+ Poikilocytosis 1+ Anisocytosis 1+ Macrocytosis 1+ Sodium Level 142 Potassium Level 3.9 Chloride Level 105 Carbon Dioxide 25 Level Anion Gap 12 Blood Urea 37 #H Nitrogen Creatinine 4.34 H Est Glomerular Filtrat Rate mL/min Glucose Level 64 #L Calcium Level 8.9 Total Bilirubin 6.9 H Direct Bilirubin 5.90 H Indirect 1.0 Bilirubin Aspartate Amino 105 H Transf (AST/SGOT ) Alanine 54 Aminotransferase (ALT/SGPT) Alkaline 264 H Phosphatase Total Protein 5.0 L Albumin 2.2 L Globulin 2.80 Albumin/Globulin 0.78 Ratio Test 01/16/19 04:22 01/16/19 04:34 01/16/19 05:00 01/16/19 08:27 Bedside Glucose 79 73 Lactic Acid 1.8 Level Blood Gas Blood arterial Specimen Source Arterial Blood 01/16/2019 4:15:29 Date Drawn AM Arterial Blood 7.474 H pH (Temp corrected) Arterial Blood 34.2 L pCO2 (Temp correct) Arterial Blood 79.6 L pO2 (Temp corrected) Arterial Blood 24.6 HCO3 Arterial Blood 1.2 Base Excess Arterial Blood 95.3 Oxygen Saturatio n [place] Test ACCEPTAB Arterial Blood Right Radial Gas Puncture Site Arterial 0.1 Blood Carboxyhem oglobin Arterial Blood 0.1 Methemoglobin Blood Gas A-a O2 238.4 H Differential Oxyhemoglobin 95.1 Percent Blood Gas 37.0 Temperature Blood Gas 24.0 Respiration Rate Blood Gas Actual 24 Respiration Rate Blood Gas VENT - AC Modality FiO2 50.0 Blood Gas Tidal 500.0 Volume Blood Gas Low 5.0 PEEP Setting Blood Gas IN Notified Whom Blood Gas 01/16/2019 4:39:06 Notified Time AM Test 01/16/19 12:25 Bedside Glucose 72 Medications Medications Current Medications Vancomycin HCl (Vanco Iv Per Pharmacy) VANCOMYCIN PER PHARMACY PER PROTOCOL XX ; Start 01/13/19 at 02:00 IV Flush (NS 3 ml) 3 ml PER PROTOCOL IV ; Start 01/13/19 at 02:00 Acetaminophen (Tylenol Tab) 650 mg Q6H PRN PO .PAIN 1-3 OR TEMP Last administered on 01/16/19at 08:05; Admin Dose 650 MG; Start 01/13/19 at 02:00 Acetaminophen/ Hydrocodone Bitart ([place] (5/325)) 1 tab Q6H PRN PO .PAIN 4-6 Last administered on 01/15/19at 13:40; Admin Dose 1 TAB; Start 01/13/19 at 02:00 Docusate Sodium (Colace) 100 mg Q12H PRN PO .CONSTIPATION; Start 01/13/19 at 02:00 Bisacodyl (Dulcolax) 5 mg DAILY PRN PO .CONSTIPATION; Start 01/13/19 at 02:00 Heparin Sodium (Porcine) (Heparin (5000 Units/1ml)) 5,000 unit Q8 SC Last administered on 01/16/19at 14:40; Admin Dose 5,000 UNIT; Start 01/13/19 at 06:00 Atorvastatin Calcium (Lipitor) 40 mg DAILY@21 PO Last administered on 01/13/19at 21:02; Admin Dose 40 MG; Start 01/13/19 at 21:00 Carvedilol (Coreg) 12.5 mg BID PO ; Start 01/13/19 at 09:00; Status Hold Doxazosin Mesylate (Cardura) 4 mg DAILY@21 PO ; Start 01/13/19 at 21:00 Ferrous Sulfate (Ferrous Sulfate (Ec)) 325 mg BID PO Last administered on 01/16/19at 08:05; Admin Dose 325 MG; Start 01/13/19 at 09:00 Folic Acid (Folic Acid) 1 mg DAILY PO Last administered on 01/16/19at 08:05; Admin Dose 1 MG; Start 01/13/19 at 09:00 Insulin Glargine (Lantus) 20 units QHS SC Last administered on 01/14/19at 22:04; Admin Dose 20 UNITS; Start 01/13/19 at 21:00; Status Hold Aspirin (Aspirin) 81 mg DAILY PO Last administered on 01/16/19at 08:05; Admin Dose 81 MG; Start 01/13/19 at 11:00 Miscellaneous Information 1 ea NOTE XX ; Start 01/13/19 at 15:30 Glucose (Glutose) 15 gm Q15M PRN PO DECREASED GLUCOSE; Start 01/13/19 at 15:30 Glucose (Glutose) 22.5 gm Q15M PRN PO DECREASED GLUCOSE; Start 01/13/19 at 15:30 Dextrose (D50w Syringe) 25 ml Q15M PRN IV DECREASED GLUCOSE; Start 01/13/19 at 15:30 Dextrose (D50w Syringe) 50 ml Q15M PRN IV DECREASED GLUCOSE; Start 01/13/19 at 15:30 Glucagon (Glucagen) 1 mg Q15M PRN IM DECREASED GLUCOSE; Start 01/13/19 at 15:30 Glucose (Glutose) 15 gm Q15M PRN BUCCAL DECREASED GLUCOSE; Start 01/13/19 at 15:30 Zolpidem Tartrate (Ambien) 10 mg HS PRN PO INSOMNIA Last administered on 01/13/19 22:56; Admin Dose 10 MG; Start 01/13/19 at 23:00 Epoetin Cam-epbx (Retacrit (Esrd)) 4,000 unit TuThSa@1700 SC Last administered on 01/14/19 17:52; Admin Dose 4,000 UNIT; Start 01/14/19 at 17:00 Levalbuterol (Xopenex Neb) 1.25 mg Q4H RESP THERAPY PRN HHN dyspnea; Start 01/14/19 at 19:00 Acetylcysteine (Mucomyst) 2 ml Q6H RESP THERAPY NEB Last administered on 01/16/19 13:59; Admin Dose 2 ML; Start 01/15/19 at 02:00 Azithromycin 250 mg/Sodium Chloride 250 ml @ 250 mls/hr Q24H IVPB Last administered on 01/15/19 18:19; Admin Dose 250 MLS/HR; Start 01/15/19 at 17:00 Fentanyl 100 ml @ 5 mls/hr TITRATE IV Last administered on 01/16/19 10:41; Admin Dose 5 MLS/HR; Start 01/15/19 at 17:30 Meropenem/Sodium Chloride 50 ml @ 100 mls/hr Q12H IVPB Last administered on 01/16/19 04:55; Admin Dose 100 MLS/HR; Start 01/15/19 at 17:30 Norepinephrine 250 ml @ 1.875 mls/ hr TITRATE IV Last administered on 01/16/19 14:41; Admin Dose 28.125 MLS/HR; Start 01/15/19 at 17:30 Insulin Aspart (Novolog Insulin Pen) NOVOLOG *MILD* ALGORITHM Q4 SC ; Start 01/15/19 at 17:55 Ipratropium [place] (Atrovent Hfa) 4 puff Q6H RESP THERAPY INH Last administered on 01/16/19 13:59; Admin Dose 4 PUFF; Start 01/15/19 at 20:00 Albuterol (Ventolin Hfa) 4 puff Q6H RESP THERAPY INH Last administered on 01/16/19 13:59; Admin Dose 4 PUFF; Start 6/2/19 at 20:00 Famotidine (Pepcid Iv) 20 mg Q24H IV Last administered on 01/16/19at 05:01; Admin Dose 20 MG; Start 01/16/19 at 06:00 Propofol 100 ml @ 2.46 mls/hr Q12H IV Last administered on 01/16/19at 06:23; Admin Dose 9.84 MLS/HR; Start 01/15/19 at 23:00 Vasopressin 60 unit/Dextrose 60 ml @ 1.2 mls/hr Q12H IV Last administered on 01/16/19at 04:54; Admin Dose 1.2 MLS/HR; Start 01/16/19 at 02:30 Phenylephrine HCl 250 ml @ 75 mls/hr TITRATE IV ; Start 01/16/19 at 10:30 Caspofungin 70 mg/ Sodium Chloride 250 ml @ 250 mls/hr ONCE ONCE IVPB Last administered on 01/16/19at 14:36; Admin Dose 250 MLS/HR; Start 01/16/19 at 15:00; Stop 01/16/19 at 15:59 Caspofungin 35 mg/ Sodium Chloride 250 ml @ 250 mls/hr Q24H IVPB ; Start 01/17/19 at 15:00 Wilfred Decker DO Jan 16, 2019 15:11
[2019-01-16] MEDS: AZITHROMYCIN 250 MG in SOD CHLORIDE 0.9% 250 ML IVPB SCH (16:44)
[2019-01-16] MEDS: DOXAZOSIN 4 MG TAB PO SCH (21:00)
[2019-01-16] MEDS: ATORVASTATIN 40 MG TAB PO SCH (21:40)
[2019-01-17] VITALS (105 sets, daily range): BP systolic 57–135; BP diastolic 32–61; PULSE 75–121; RESP 12–29
[2019-01-17] MEDS: INSULIN ASPART [NOVOLOG] 3 ML PEN SC SCH ×6 (01:00→20:45)
[2019-01-17] MEDS: ACETYLCYSTEINE 20% 4 ML VIAL NEB SCH ×4 (01:41→19:35)
[2019-01-17] MEDS: ALBUTEROL HFA 8 GM INHALER INH SCH ×4 (01:41→19:35)
[2019-01-17] MEDS: IPRATROPIUM (HFA) 12.9 GM INHALER INH SCH ×4 (01:41→19:34)
[2019-01-17] MEDS: PROPOFOL 100 ML IV SCH ×2 (03:33→14:44)
[2019-01-17] MEDS: FENTAnyl (DRIP) 1000 mcg/100mL 100 ML IV SCH (03:34)
[2019-01-17] MEDS: VASOPRESSIN 60 UNIT in DEXTROSE 5% 57 ML IV SCH ×2 (03:39→14:30)
[2019-01-17] MEDS: METOCLOPRAMIDE 10 MG INJ IV PRN ×2 (03:43→15:21)
[2019-01-17] MEDS: FAMOTIDINE 20 MG INJ IV SCH (05:33)
[2019-01-17] MEDS: MEROPENEM 500MG/50 ML (PMX) 50 ML IVPB SCH ×2 (05:33→18:15)
[2019-01-17] MEDS: NORepinephrine 8MG/250 ML (PMX 250 ML IV SCH ×3 (05:33→21:15)
[2019-01-17] MEDS: HEPARIN 5,000 UNIT/1 ML VIAL SC SCH ×3 (05:34→20:46)
[2019-01-17] MEDS: BALSAM PERU/CASTOR OIL 60 GM TUBE TOP SCH ×2 (08:01→20:42)
[2019-01-17] MEDS: FOLIC ACID 1 MG TAB PO SCH (08:02)
[2019-01-17] MEDS: FERROUS SULFATE (EC) 325 MG TAB PO SCH ×2 (08:02→20:42)
[2019-01-17] MEDS: ASPIRIN 81 MG TAB PO SCH (08:02)
--- NOTE | 2019-01-17 10:16 | PN ---
Date/Time of Note Date/Time of Note DATE: 01/17/19 TIME: 09:59 Assessment/Plan VTE Prophylaxis Risk score (from Ns)>0 risk: 10 SCD applied (from Ns): Yes Pharmacological prophylaxis: heparin Lines/Catheters IV Catheter Type (from Nrsg): Central Line Central line still needed: Yes Urinary Cath still in place: No Assessment/Plan Hospital Course 1. Sepsis secondary to underlying healthcare associated pneumonia possibly from dialysis center - continue abx - ID following - f/u respiratory cultures 2. Healthcare associated pneumonia - continue abx - f/u final respiratory cultures 3. Hypoxic respiratory failure - multifactorial: pna, esrd - continue breathing tx - intubated now - vent weaning as tolerated - monitor CXR/ABG - continue HD - sample steamer following 4. NSTEMI type II secondary to demand - Echo with preserved EF - troponin marker downward trended - elementary education tutor following 5 Coronary artery disease: History of CABG - Continue home medications 6. End-stage renal disease - Patient receives dialysis (Wednesday, and Wednesday) - f/u nephro recs - correct electrolytes as needed 7. Diabetes mellitus - A1c 4.7 - Continue insulin regimen 8. Hypertension - hypotensive - on vasopressors - titrate down 9. Lower back pain with left leg weakness: Possibly resulting in sciatica. - Continue PT once more stable 10. elevated LFT - f/u live profile - f/u abd imaging - GI coonsult DISPO.PLAN: continue abx. continue vent weaning assessments. continue breathing tx. f/u pulmonary recs. GI consult to follow Await for clinical improvement. Monitor in ICU Discussed plan of care with Dr. Nieves Result Diagram: 01/17/19 0442 01/17/19 0442 Results 24hrs Laboratory Tests Test 01/16/19 12:25 01/16/19 16:52 01/16/19 21:29 01/17/19 02:39 Bedside Glucose 72 80 80 76 Test 01/17/19 04:41 01/17/19 04:42 01/17/19 07:00 01/17/19 07:57 Bedside Glucose 86 91 White Blood Count 24.6 H Red Blood Count 2.95 L Hemoglobin 9.4 L Hematocrit 29.5 L Mean Corpuscular 100.0 Volume Mean Corpuscular 31.9 Hemoglobin Mean Corpuscular 31.9 L Hemoglobin Concent Red Cell 14.7 H Distribution Width Platelet Count 86 #L Mean Platelet 11.7 H Volume Immature 2.000 H Granulocytes % Neutrophils % Segmented 86 H Neutrophils % (Manual) Band Neutrophils % 4 (Manual) Lymphocytes % Lymphocytes % 2 L (Manual) Monocytes % Monocytes % 1 (Manual) Eosinophils % Eosinophils % 5 (Manual) Basophils % Basophils % 2 (Manual) Nucleated Red 0.2 H Blood Cells % Immature 0.490 H Granulocytes # Neutrophils # Neutrophils # 21.4 H (Manual) Band Neutrophils # 0.9 H Lymphocytes 0.4 L (Manual) Lymphocytes # Monocytes # Monocytes # 0.2 L (Manual) Eosinophils # Basophils # Basophils # 0.4 H (Manual) Nucleated Red Blood Cells # Platelet Estimate DECREASED Polychromasia 3+ Poikilocytosis 3+ Anisocytosis 2+ Macrocytosis 1+ Sodium Level 141 Potassium Level 4.1 Chloride Level 104 Carbon Dioxide 25 Level Anion Gap 12 Blood Urea 24 #H Nitrogen Creatinine 3.40 H Est Glomerular Filtrat Rate mL/min Glucose Level 80 Calcium Level 9.3 Phosphorus Level 3.9 Magnesium Level 2.1 Blood Gas Specimen Blood arterial Source Arterial Blood 01/17/2019 7:51:19 Date Drawn AM Arterial Blood pH 7.384 (Temp corrected) Arterial Blood 42.5 pCO2 (Temp correct) Arterial Blood pO2 67.3 L (Temp corrected) Arterial Blood 24.8 HCO3 Arterial Blood -0.3 Base Excess Arterial Blood 92.1 L Oxygen Saturation Jaiden Test ACCEPTAB Arterial Blood Gas Right Radial Puncture Site Arterial 0.3 Blood Carboxyhemog lobin Arterial Blood 0 Methemoglobin Blood Gas A-a O2 169.0 H Differential Oxyhemoglobin 91.8 L Percent Blood Gas 37.0 Temperature Blood Gas 20.0 Respiration Rate Blood Gas Actual 20 Respiration Rate Blood Gas Modality VENT - AC FiO2 40.0 Blood Gas Tidal 500.0 Volume Blood Gas Low PEEP 5.0 Setting Blood Gas Notified TM Whom Blood Gas Notified 01/17/2019 8:12:03 Time AM Subjective 24 Hr Interval Summary Free Text/Dictation remains intubated on vasopressors. no s/s of distress Exam/Review of Systems Exam Vitals Vital Signs Date Temp Pulse Resp B/P (MAP) Pulse Ox O2 O2 Flow FiO2 Time Delivery Rate 01/17/19 119 21 100/51 100 08:30 (67) 01/17/19 Mechanical 08:00 Ventilator 01/17/19 40 08:00 01/17/19 98.5 04:00 01/14/19 15.0 20:00 Intake and Output 01/16/19 01/16/19 01/17/19 1515:00 23:00 07:00 IntakeIntake Total 454.425 ml 865.66 ml 405.46 ml OutputOutput Total 1700 ml BalanceBalance -1245.575 ml 865.66 ml 405.46 ml Exam Constitutional: obese, other (intubated and sedated ) Respiratory: diminished breath sounds Gastrointestinal: soft, non-tender Musculoskeletal: other (no obvious swelling ble ) Neurological: other (intubated and sedated) Skin: suspect ulcer sacral area Results Results 24hrs Laboratory Tests Test 01/16/19 12:25 01/16/19 16:52 01/16/19 21:29 01/17/19 02:39 Bedside Glucose 72 80 80 76 Test 01/17/19 04:41 01/17/19 04:42 01/17/19 07:00 01/17/19 07:57 Bedside Glucose 86 91 White Blood Count 24.6 H Red Blood Count 2.95 L Hemoglobin 9.4 L Hematocrit 29.5 L Mean Corpuscular 100.0 Volume Mean Corpuscular 31.9 Hemoglobin Mean Corpuscular 31.9 L Hemoglobin Concent Red Cell 14.7 H Distribution Width Platelet Count 86 #L Mean Platelet 11.7 H Volume Immature 2.000 H Granulocytes % Neutrophils % Segmented 86 H Neutrophils % (Manual) Band Neutrophils % 4 (Manual) Lymphocytes % Lymphocytes % 2 L (Manual) Monocytes % Monocytes % 1 (Manual) Eosinophils % Eosinophils % 5 (Manual) Basophils % Basophils % 2 (Manual) Nucleated Red 0.2 H Blood Cells % Immature 0.490 H Granulocytes # Neutrophils # Neutrophils # 21.4 H (Manual) Band Neutrophils # 0.9 H Lymphocytes 0.4 L (Manual) Lymphocytes # Monocytes # Monocytes # 0.2 L (Manual) Eosinophils # Basophils # Basophils # 0.4 H (Manual) Nucleated Red Blood Cells # Platelet Estimate DECREASED Polychromasia 3+ Poikilocytosis 3+ Anisocytosis 2+ Macrocytosis 1+ Sodium Level 141 Potassium Level 4.1 Chloride Level 104 Carbon Dioxide 25 Level Anion Gap 12 Blood Urea 24 #H Nitrogen Creatinine 3.40 H Est Glomerular Filtrat Rate mL/min Glucose Level 80 Calcium Level 9.3 Phosphorus Level 3.9 Magnesium Level 2.1 Blood Gas Specimen Blood arterial Source Arterial Blood 01/17/2019 7:51:19 Date Drawn AM Arterial Blood pH 7.384 (Temp corrected) Arterial Blood 42.5 pCO2 (Temp correct) Arterial Blood pO2 67.3 L (Temp corrected) Arterial Blood 24.8 HCO3 Arterial Blood -0.3 Base Excess Arterial Blood 92.1 L Oxygen Saturation Jaiden Test ACCEPTAB Arterial Blood Gas Right Radial Puncture Site Arterial 0.3 Blood Carboxyhemog lobin Arterial Blood 0 Methemoglobin Blood Gas A-a O2 169.0 H Differential Oxyhemoglobin 91.8 L Percent Blood Gas 37.0 Temperature Blood Gas 20.0 Respiration Rate Blood Gas Actual 20 Respiration Rate Blood Gas Modality VENT - AC FiO2 40.0 Blood Gas Tidal 500.0 Volume Blood Gas Low PEEP 5.0 Setting Blood Gas Notified TM Whom Blood Gas Notified 01/17/2019 8:12:03 Time AM Medications Medication Current Medications Vancomycin HCl (Vanco Iv Per Pharmacy) VANCOMYCIN PER PHARMACY PER PROTOCOL XX ; Start 01/13/19 at 02:00 IV Flush (NS 3 ml) 3 ml PER PROTOCOL IV ; Start 01/13/19 at 02:00 Acetaminophen (Tylenol Tab) 650 mg Q6H PRN PO .PAIN 1-3 OR TEMP Last administered on 01/16/19at 08:05; Admin Dose 650 MG; Start 01/13/19 at 02:00 Acetaminophen/ Hydrocodone Bitart ([place] (5/325)) 1 tab Q6H PRN PO .PAIN 4-6 Last administered on 01/15/19at 13:40; Admin Dose 1 TAB; Start 01/13/19 at 02:00 Docusate Sodium (Colace) 100 mg Q12H PRN PO .CONSTIPATION; Start 01/13/19 at 02:00 Bisacodyl (Dulcolax) 5 mg DAILY PRN PO .CONSTIPATION; Start 01/13/19 at 02:00 Heparin Sodium (Porcine) (Heparin (5000 Units/1ml)) 5,000 unit Q8 SC Last administered on 01/17/19at 05:34; Admin Dose 5,000 UNIT; Start 01/13/19 at 06:00 Atorvastatin Calcium (Lipitor) 40 mg DAILY@21 PO Last administered on 01/16/19 21:40; Admin Dose 40 MG; Start 01/13/19 at 21:00 Carvedilol (Coreg) 12.5 mg BID PO ; Start 01/13/19 at 09:00; Status Hold Doxazosin Mesylate (Cardura) 4 mg DAILY@21 PO ; Start 01/13/19 at 21:00 Ferrous Sulfate (Ferrous Sulfate (Ec)) 325 mg BID PO Last administered on 01/17/19 08:02; Admin Dose 325 MG; Start 01/13/19 at 09:00 Folic Acid (Folic Acid) 1 mg DAILY PO Last administered on 01/17/19 08:02; Admin Dose 1 MG; Start 01/13/19 at 09:00 Insulin Glargine (Lantus) 20 units QHS SC Last administered on 01/14/19at 22:04; Admin Dose 20 UNITS; Start 01/13/19 at 21:00; Status Hold Aspirin (Aspirin) 81 mg DAILY PO Last administered on 01/17/19 08:02; Admin Dose 81 MG; Start 01/13/19 at 11:00 Miscellaneous Information 1 ea NOTE XX ; Start 01/13/19 at 15:30 Glucose (Glutose) 15 gm Q15M PRN PO DECREASED GLUCOSE; Start 01/13/19 at 15:30 Glucose (Glutose) 22.5 gm Q15M PRN PO DECREASED GLUCOSE; Start 01/13/19 at 15:30 Dextrose (D50w Syringe) 25 ml Q15M PRN IV DECREASED GLUCOSE; Start 01/13/19 at 15:30 Dextrose (D50w Syringe) 50 ml Q15M PRN IV DECREASED GLUCOSE; Start 01/13/19 at 15:30 Glucagon (Glucagen) 1 mg Q15M PRN IM DECREASED GLUCOSE; Start 01/13/19 at 15:30 Glucose (Glutose) 15 gm Q15M PRN BUCCAL DECREASED GLUCOSE; Start 01/13/19 at 15:30 Zolpidem Tartrate (Ambien) 10 mg HS PRN PO INSOMNIA Last administered on 01/13/19at 22:56; Admin Dose 10 MG; Start 01/13/19 at 23:00 Epoetin Cam-epbx (Retacrit (Esrd)) 4,000 unit TuThSa@1700 SC Last administered on 01/14/19 17:52; Admin Dose 4,000 UNIT; Start 01/14/19 at 17:00 Levalbuterol (Xopenex Neb) 1.25 mg Q4H RESP THERAPY PRN HHN dyspnea; Start 01/14/19 at 19:00 Acetylcysteine (Mucomyst) 2 ml Q6H RESP THERAPY NEB Last administered on 01/17/19 08:19; Admin Dose 2 ML; Start 01/15/19 at 02:00 Azithromycin 250 mg/Sodium Chloride 250 ml @ 250 mls/hr Q24H IVPB Last administered on 01/16/19 16:44; Admin Dose 250 MLS/HR; Start 01/15/19 at 17:00 Fentanyl 100 ml @ 5 mls/hr TITRATE IV Last administered on 01/17/19 03:34; Admin Dose 5 MLS/HR; Start 01/15/19 at 17:30 Meropenem/Sodium Chloride 50 ml @ 100 mls/hr Q12H IVPB Last administered on 01/17/19 05:33; Admin Dose 100 MLS/HR; Start 01/15/19 at 17:30 Norepinephrine 250 ml @ 1.875 mls/ hr TITRATE IV Last administered on 01/17/19 05:33; Admin Dose 30 MLS/HR; Start 01/15/19 at 17:30 Insulin Aspart (Novolog Insulin Pen) NOVOLOG *MILD* ALGORITHM Q4 SC ; Start 01/15/19 at 17:55 Ipratropium [place] (Atrovent Hfa) 4 puff Q6H RESP THERAPY INH Last administered on 01/17/19 08:18; Admin Dose 4 PUFF; Start 01/15/19 at 20:00 Albuterol (Ventolin Hfa) 4 puff Q6H RESP THERAPY INH Last administered on 01/17/19 08:19; Admin Dose 4 PUFF; Start 01/15/19 at 20:00 Famotidine (Pepcid Iv) 20 mg Q24H IV Last administered on 01/17/19 05:33; Admin Dose 20 MG; Start 01/16/19 at 06:00 Propofol 100 ml @ 2.46 mls/hr Q12H IV Last administered on 01/17/19 03:33; Admin Dose 7.38 MLS/HR; Start 01/15/19 at 23:00 Vasopressin 60 unit/Dextrose 60 ml @ 1.2 mls/hr Q12H IV Last administered on 01/17/19at 03:39; Admin Dose 1.2 MLS/HR; Start 01/16/19 at 02:30 Phenylephrine HCl 250 ml @ 75 mls/hr TITRATE IV ; Start 01/16/19 at 10:30 Caspofungin 35 mg/ Sodium Chloride 250 ml @ 250 mls/hr Q24H IVPB ; Start 01/17/19 at 15:00 Metoclopramide HCl (Reglan) 5 mg Q6H PRN IV feeding residual Last administered on 01/17/19at 03:43; Admin Dose 5 MG; Start 01/17/19 at 03:30 Docusate Sodium (Colace Liquid Cup) 100 mg BID NGT ; Start 01/17/19 at 21:00 SULEIMAN BOYD NP Jan 17, 2019 10:09
[2019-01-17] MEDS ORDERED: AMIODARONE 150MG/D5W BOLUS 100 ML IV ONE ×2 (10:30)
[2019-01-17] MEDS ORDERED: AMIODARONE 900 MG in DEXTROSE 5% 482 ML IV SCH (10:30)
--- NOTE | 2019-01-17 10:41 | CONS ---
Consult Date/Type/Reason Admit Date/Time January 13, 2019 at 00:07 Initial Consult Date 01/15/19 Type of Consult Pulmonary Date/Time of Note DATE: 01/17/19 TIME: 10:39 Subjective Continues mechanical ventilation and vasopressor support. Worsening jaundice clinically. Objective Vital Signs Date Temp Pulse Resp B/P (MAP) Pulse Ox O2 O2 Flow FiO2 Time Delivery Rate 01/17/19 119 21 100/51 100 08:30 (67) 01/17/19 Mechanical 08:00 Ventilator 01/17/19 40 08:00 01/17/19 98.5 04:00 01/14/19 15.0 20:00 Intake and Output 01/16/19 01/16/19 01/17/19 1515:00 23:00 07:00 IntakeIntake Total 454.425 ml 865.66 ml 405.46 ml OutputOutput Total 1700 ml BalanceBalance -1245.575 ml 865.66 ml 405.46 ml Exam GENERAL: Elderly gentleman orally intubated on mechanical ventilation VITAL SIGNS: per chart NECK: Supple. No JVD or lymphadenopathy. CARDIAC EXAM: S1, S2. No added sounds or murmurs. CHEST: Diminished air entry bilaterally ABDOMEN: Soft, nontender. No guarding or rebound. EXTREMITIES: No cyanosis, clubbing or edema. NEUROLOGIC: Generalized weakness. No focal deficits. Vent Setting Ventilator Support Mode: AC Fraction of Inspired Oxygen pe: 40 Positive End Expiratory Pressu: 5.0 Results/Medications Result Diagram: 01/17/19 0442 01/17/19 0442 Results 24 hrs Laboratory Tests Test 01/16/19 12:25 01/16/19 16:52 01/16/19 21:29 01/17/19 02:39 Bedside Glucose 72 80 80 76 Test 01/17/19 04:41 01/17/19 04:42 01/17/19 07:00 01/17/19 07:57 Bedside Glucose 86 91 White Blood Count 24.6 H Red Blood Count 2.95 L Hemoglobin 9.4 L Hematocrit 29.5 L Mean Corpuscular 100.0 Volume Mean Corpuscular 31.9 Hemoglobin Mean Corpuscular 31.9 L Hemoglobin Concent Red Cell 14.7 H Distribution Width Platelet Count 86 #L Mean Platelet 11.7 H Volume Immature 2.000 H Granulocytes % Neutrophils % Segmented 86 H Neutrophils % (Manual) Band Neutrophils % 4 (Manual) Lymphocytes % Lymphocytes % 2 L (Manual) Monocytes % Monocytes % 1 (Manual) Eosinophils % Eosinophils % 5 (Manual) Basophils % Basophils % 2 (Manual) Nucleated Red 0.2 H Blood Cells % Immature 0.490 H Granulocytes # Neutrophils # Neutrophils # 21.4 H (Manual) Band Neutrophils # 0.9 H Lymphocytes 0.4 L (Manual) Lymphocytes # Monocytes # Monocytes # 0.2 L (Manual) Eosinophils # Basophils # Basophils # 0.4 H (Manual) Nucleated Red Blood Cells # Platelet Estimate DECREASED Polychromasia 3+ Poikilocytosis 3+ Anisocytosis 2+ Macrocytosis 1+ Sodium Level 141 Potassium Level 4.1 Chloride Level 104 Carbon Dioxide 25 Level Anion Gap 12 Blood Urea 24 #H Nitrogen Creatinine 3.40 H Est Glomerular Filtrat Rate mL/min Glucose Level 80 Calcium Level 9.3 Phosphorus Level 3.9 Magnesium Level 2.1 Blood Gas Specimen Blood arterial Source Arterial Blood 01/17/2019 7:51:19 Date Drawn AM Arterial Blood pH 7.384 (Temp corrected) Arterial Blood 42.5 pCO2 (Temp correct) Arterial Blood pO2 67.3 L (Temp corrected) Arterial Blood 24.8 HCO3 Arterial Blood -0.3 Base Excess Arterial Blood 92.1 L Oxygen Saturation Jaiden Test ACCEPTAB Arterial Blood Gas Right Radial Puncture Site Arterial 0.3 Blood Carboxyhemog lobin Arterial Blood 0 Methemoglobin Blood Gas A-a O2 169.0 H Differential Oxyhemoglobin 91.8 L Percent Blood Gas 37.0 Temperature Blood Gas 20.0 Respiration Rate Blood Gas Actual 20 Respiration Rate Blood Gas Modality VENT - AC FiO2 40.0 Blood Gas Tidal 500.0 Volume Blood Gas Low PEEP 5.0 Setting Blood Gas Notified TM Whom Blood Gas Notified 01/17/2019 8:12:03 Time AM Medications Current Medications Vancomycin HCl (Vanco Iv Per Pharmacy) VANCOMYCIN PER PHARMACY PER PROTOCOL XX ; Start 01/13/19 at 02:00 IV Flush (NS 3 ml) 3 ml PER PROTOCOL IV ; Start 01/13/19 at 02:00 Acetaminophen (Tylenol Tab) 650 mg Q6H PRN PO .PAIN 1-3 OR TEMP Last administered on 01/16/19at 08:05; Admin Dose 650 MG; Start 01/13/19 at 02:00 Acetaminophen/ Hydrocodone Bitart ([place] (5/325)) 1 tab Q6H PRN PO .PAIN 4-6 Last administered on 01/15/19at 13:40; Admin Dose 1 TAB; Start 01/13/19 at 02:00 Docusate Sodium (Colace) 100 mg Q12H PRN PO .CONSTIPATION; Start 01/13/19 at 02:00 Bisacodyl (Dulcolax) 5 mg DAILY PRN PO .CONSTIPATION; Start 01/13/19 at 02:00 Heparin Sodium (Porcine) (Heparin (5000 Units/1ml)) 5,000 unit Q8 SC Last administered on 01/17/19at 05:34; Admin Dose 5,000 UNIT; Start 01/13/19 at 06:00 Atorvastatin Calcium (Lipitor) 40 mg DAILY@21 PO Last administered on 01/16/19at 21:40; Admin Dose 40 MG; Start 01/13/19 at 21:00 Carvedilol (Coreg) 12.5 mg BID PO ; Start 01/13/19 at 09:00; Status Hold Doxazosin Mesylate (Cardura) 4 mg DAILY@21 PO ; Start 01/13/19 at 21:00; Status Hold Ferrous Sulfate (Ferrous Sulfate (Ec)) 325 mg BID PO Last administered on 01/17/19 08:02; Admin Dose 325 MG; Start 01/13/19 at 09:00 Folic Acid (Folic Acid) 1 mg DAILY PO Last administered on 01/17/19 08:02; Admin Dose 1 MG; Start 01/13/19 at 09:00 Insulin Glargine (Lantus) 20 units QHS SC Last administered on 01/14/19at 22:04; Admin Dose 20 UNITS; Start 01/13/19 at 21:00; Status Hold Aspirin (Aspirin) 81 mg DAILY PO Last administered on 01/17/19 08:02; Admin Dose 81 MG; Start 01/13/19 at 11:00 Miscellaneous Information 1 ea NOTE XX ; Start 01/13/19 at 15:30 Glucose (Glutose) 15 gm Q15M PRN PO DECREASED GLUCOSE; Start 01/13/19 at 15:30 Glucose (Glutose) 22.5 gm Q15M PRN PO DECREASED GLUCOSE; Start 01/13/19 at 15:30 Dextrose (D50w Syringe) 25 ml Q15M PRN IV DECREASED GLUCOSE; Start 01/13/19 at 15:30 Dextrose (D50w Syringe) 50 ml Q15M PRN IV DECREASED GLUCOSE; Start 01/13/19 at 15:30 Glucagon (Glucagen) 1 mg Q15M PRN IM DECREASED GLUCOSE; Start 01/13/19 at 15:30 Glucose (Glutose) 15 gm Q15M PRN BUCCAL DECREASED GLUCOSE; Start 01/13/19 at 15:30 Zolpidem Tartrate (Ambien) 10 mg HS PRN PO INSOMNIA Last administered on 01/13/19at 22:56; Admin Dose 10 MG; Start 01/13/19 at 23:00 Epoetin Cam-epbx (Retacrit (Esrd)) 4,000 unit TuThSa@1700 SC Last administered on 01/14/19at 17:52; Admin Dose 4,000 UNIT; Start 01/14/19 at 17:00 Levalbuterol (Xopenex Neb) 1.25 mg Q4H RESP THERAPY PRN HHN dyspnea; Start 01/14/19 at 19:00 Acetylcysteine (Mucomyst) 2 ml Q6H RESP THERAPY NEB Last administered on 01/17/19at 08:19; Admin Dose 2 ML; Start 01/15/19 at 02:00 Azithromycin 250 mg/Sodium Chloride 250 ml @ 250 mls/hr Q24H IVPB Last administered on 01/16/19at 16:44; Admin Dose 250 MLS/HR; Start 01/15/19 at 17:00 Fentanyl 100 ml @ 5 mls/hr TITRATE IV Last administered on 01/17/19at 03:34; Admin Dose 5 MLS/HR; Start 01/15/19 at 17:30 Meropenem/Sodium Chloride 50 ml @ 100 mls/hr Q12H IVPB Last administered on 01/17/19at 05:33; Admin Dose 100 MLS/HR; Start 01/15/19 at 17:30 Norepinephrine 250 ml @ 1.875 mls/ hr TITRATE IV Last administered on 01/17/19at 05:33; Admin Dose 30 MLS/HR; Start 01/15/19 at 17:30 Insulin Aspart (Novolog Insulin Pen) NOVOLOG *MILD* ALGORITHM Q4 SC ; Start 01/15/19 at 17:55 Ipratropium [place] (Atrovent Hfa) 4 puff Q6H RESP THERAPY INH Last administered on 01/17/19at 08:18; Admin Dose 4 PUFF; Start 01/15/19 at 20:00 Albuterol (Ventolin Hfa) 4 puff Q6H RESP THERAPY INH Last administered on 01/17/19at 08:19; Admin Dose 4 PUFF; Start 01/15/19 at 20:00 Famotidine (Pepcid Iv) 20 mg Q24H IV Last administered on 01/17/19at 05:33; Admin Dose 20 MG; Start 01/16/19 at 06:00 Propofol 100 ml @ 2.46 mls/hr Q12H IV Last administered on 01/17/19 03:33; Admin Dose 7.38 MLS/HR; Start 01/15/19 at 23:00 Vasopressin 60 unit/Dextrose 60 ml @ 1.2 mls/hr Q12H IV Last administered on 01/17/19at 03:39; Admin Dose 1.2 MLS/HR; Start 01/16/19 at 02:30 Phenylephrine HCl 250 ml @ 75 mls/hr TITRATE IV ; Start 01/16/19 at 10:30 Caspofungin 35 mg/ Sodium Chloride 250 ml @ 250 mls/hr Q24H IVPB ; Start 01/17/19 at 15:00 Metoclopramide HCl (Reglan) 5 mg Q6H PRN IV feeding residual Last administered on 01/17/19at 03:43; Admin Dose 5 MG; Start 01/17/19 at 03:30 Docusate Sodium (Colace Liquid Cup) 100 mg BID NGT ; Start 01/17/19 at 21:00 Collagenase (Santyl) 1 applic BID TOP ; Start 01/17/19 at 21:00 Amiodarone HCl 900 mg/Dextrose 500 ml @ 0 mls/hr Q0M IV ; Start 01/17/19 at 10:30 Amiodarone HCl 100 ml @ 600 mls/hr ONCE ONCE IV Last administered on 01/17/19at 10:28; Admin Dose 600 MLS/HR; Start 01/17/19 at 10:30; Stop 01/17/19 at 10:39 Assessment/Plan Hospital Course (Demo Recall) IMP: 1. Hypoxemic and hypercapnic respiratory failure 2. Extensive CAP vs. HCAP 3. Persistent leukocytosis 4. AMS--likely toxic-metabolic encephalopathy 5. ESRD on HD 6. HTN 7. CAD 8. Septic shock secondary to above RECS: 1. Continue mechanical ventilation 2. IV fluids vasopressors trend lactic acid 3. Continue broad-spectrum antibiotics pending cultures 4. Continue tube feeding as tolerated 5. Hemodialysis as tolerated 6. Liver function testing and ultrasound noted. Critical care time 40 minutes Overall prognosis guarded DARIA AGUIAR MD, [facility] Jan 17, 2019 10:41
--- NOTE | 2019-01-17 11:17 | CONS ---
Assessment/Plan Assessment/Plan Hospital Course (Demo Recall) Shock, likely secondary to sepsis Vent dependent respiratory failure Severe hypotension on IV pressors Sepsis secondary to pneumonia New onset atrial fibrillation Preserved left ventricular ejection fraction Minimally elevated troponin CAD with history of CABG End-stage renal disease on hemodialysis Diabetes Hypertension Dyslipidemia Titrate IV pressors to maintain SBP greater than 90 and/or map above 60. Given medications being titrated, I did recommend titrating down levo fed initially given atrial fibrillation We will bolus and load with amiodarone given new onset atrial fibrillation. Vent management as per pulmonary Would hold all patient's antihypertensives Fluid management via hemodialysis as per nephrology Antibiotics as per infectious disease-did discuss with nurse regarding consider changing azithromycin given interactions with amiodarone, this will be conveyed to infectious disease Continue aspirin and statin therapy if no contraindication Greater than 33 minutes of critical care time taken in the care of this patient Consultation Date/Type/Reason Admit Date/Time January 13, 2019 at 00:07 Initial Consult Date 01/15/19 Type of Consult Cardiology Date/Time of Note DATE: 01/17/19 TIME: 11:15 24 HR Interval Summary Free Text/Dictation Patient with new onset atrial fibrillation over the past 24 hours. Remains on 2 IV pressors Exam/Review of Systems Vital Signs Vitals Vital Signs Date Temp Pulse Resp B/P (MAP) Pulse Ox O2 O2 Flow FiO2 Time Delivery Rate 01/17/19 119 21 100/51 100 08:30 (67) 01/17/19 Mechanical 08:00 Ventilator 01/17/19 40 08:00 01/17/19 98.5 04:00 01/14/19 15.0 20:00 Intake and Output 01/16/19 01/16/19 01/17/19 1515:00 23:00 07:00 IntakeIntake Total 454.425 ml 865.66 ml 405.46 ml OutputOutput Total 1700 ml BalanceBalance -1245.575 ml 865.66 ml 405.46 ml Exam Exam Sedated and intubated, no apparent distress, nurse at bedside Head: normocephalic ENMT: intubated Respiratory: other (Coarse breath sounds bilaterally, no wheezing) Cardiovascular: irregular rhythm (S1-S2 heard) Gastrointestinal: soft, bowel sounds, other (No grimacing with palpation) Extremities: edema Neurological: other (Sedated) Labs Result Diagram: 01/17/19 0442 01/17/19 0442 Results 24hrs Laboratory Tests Test 01/16/19 12:25 01/16/19 16:52 01/16/19 21:29 01/17/19 02:39 Bedside Glucose 72 80 80 76 Test 01/17/19 04:41 01/17/19 04:42 01/17/19 07:00 01/17/19 07:57 Bedside Glucose 86 91 White Blood Count 24.6 H Red Blood Count 2.95 L Hemoglobin 9.4 L Hematocrit 29.5 L Mean Corpuscular 100.0 Volume Mean Corpuscular 31.9 Hemoglobin Mean Corpuscular 31.9 L Hemoglobin Concent Red Cell 14.7 H Distribution Width Platelet Count 86 #L Mean Platelet 11.7 H Volume Immature 2.000 H Granulocytes % Neutrophils % Segmented 86 H Neutrophils % (Manual) Band Neutrophils % 4 (Manual) Lymphocytes % Lymphocytes % 2 L (Manual) Monocytes % Monocytes % 1 (Manual) Eosinophils % Eosinophils % 5 (Manual) Basophils % Basophils % 2 (Manual) Nucleated Red 0.2 H Blood Cells % Immature 0.490 H Granulocytes # Neutrophils # Neutrophils # 21.4 H (Manual) Band Neutrophils # 0.9 H Lymphocytes 0.4 L (Manual) Lymphocytes # Monocytes # Monocytes # 0.2 L (Manual) Eosinophils # Basophils # Basophils # 0.4 H (Manual) Nucleated Red Blood Cells # Platelet Estimate DECREASED Polychromasia 3+ Poikilocytosis 3+ Anisocytosis 2+ Macrocytosis 1+ Sodium Level 141 Potassium Level 4.1 Chloride Level 104 Carbon Dioxide 25 Level Anion Gap 12 Blood Urea 24 #H Nitrogen Creatinine 3.40 H Est Glomerular Filtrat Rate mL/min Glucose Level 80 Calcium Level 9.3 Phosphorus Level 3.9 Magnesium Level 2.1 Blood Gas Specimen Blood arterial Source Arterial Blood 01/17/2019 7:51:19 Date Drawn AM Arterial Blood pH 7.384 (Temp corrected) Arterial Blood 42.5 pCO2 (Temp correct) Arterial Blood pO2 67.3 L (Temp corrected) Arterial Blood 24.8 HCO3 Arterial Blood -0.3 Base Excess Arterial Blood 92.1 L Oxygen Saturation Jaiden Test ACCEPTAB Arterial Blood Gas Right Radial Puncture Site Arterial 0.3 Blood Carboxyhemog lobin Arterial Blood 0 Methemoglobin Blood Gas A-a O2 169.0 H Differential Oxyhemoglobin 91.8 L Percent Blood Gas 37.0 Temperature Blood Gas 20.0 Respiration Rate Blood Gas Actual 20 Respiration Rate Blood Gas Modality VENT - AC FiO2 40.0 Blood Gas Tidal 500.0 Volume Blood Gas Low PEEP 5.0 Setting Blood Gas Notified TM Whom Blood Gas Notified 01/17/2019 8:12:03 Time AM Medications Medications Current Medications Vancomycin HCl (Vanco Iv Per Pharmacy) VANCOMYCIN PER PHARMACY PER PROTOCOL XX ; Start 01/13/19 at 02:00 IV Flush (NS 3 ml) 3 ml PER PROTOCOL IV ; Start 01/13/19 at 02:00 Acetaminophen (Tylenol Tab) 650 mg Q6H PRN PO .PAIN 1-3 OR TEMP Last administered on 01/16/19 08:05; Admin Dose 650 MG; Start 01/13/19 at 02:00 Acetaminophen/ Hydrocodone Bitart ([place] (5/325)) 1 tab Q6H PRN PO .PAIN 4-6 Last administered on 01/15/19 13:40; Admin Dose 1 TAB; Start 01/13/19 at 02:00 Docusate Sodium (Colace) 100 mg Q12H PRN PO .CONSTIPATION; Start 01/13/19 at 02:00 Bisacodyl (Dulcolax) 5 mg DAILY PRN PO .CONSTIPATION; Start 01/13/19 at 02:00 Heparin Sodium (Porcine) (Heparin (5000 Units/1ml)) 5,000 unit Q8 SC Last administered on 01/17/19 05:34; Admin Dose 5,000 UNIT; Start 01/13/19 at 06:00 Atorvastatin Calcium (Lipitor) 40 mg DAILY@21 PO Last administered on 01/16/19 21:40; Admin Dose 40 MG; Start 01/13/19 at 21:00 Carvedilol (Coreg) 12.5 mg BID PO ; Start 01/13/19 at 09:00; Status Hold Doxazosin Mesylate (Cardura) 4 mg DAILY@21 PO ; Start 01/13/19 at 21:00; Status Hold Ferrous Sulfate (Ferrous Sulfate (Ec)) 325 mg BID PO Last administered on 01/17/19 08:02; Admin Dose 325 MG; Start 01/13/19 at 09:00 Folic Acid (Folic Acid) 1 mg DAILY PO Last administered on 01/17/19 08:02; Admin Dose 1 MG; Start 01/13/19 at 09:00 Insulin Glargine (Lantus) 20 units QHS SC Last administered on 01/14/19at 22:04; Admin Dose 20 UNITS; Start 01/13/19 at 21:00; Status Hold Aspirin (Aspirin) 81 mg DAILY PO Last administered on 01/17/19at 08:02; Admin Dose 81 MG; Start 01/13/19 at 11:00 Miscellaneous Information 1 ea NOTE XX ; Start 01/13/19 at 15:30 Glucose (Glutose) 15 gm Q15M PRN PO DECREASED GLUCOSE; Start 01/13/19 at 15:30 Glucose (Glutose) 22.5 gm Q15M PRN PO DECREASED GLUCOSE; Start 01/13/19 at 15:30 Dextrose (D50w Syringe) 25 ml Q15M PRN IV DECREASED GLUCOSE; Start 01/13/19 at 15:30 Dextrose (D50w Syringe) 50 ml Q15M PRN IV DECREASED GLUCOSE; Start 01/13/19 at 15:30 Glucagon (Glucagen) 1 mg Q15M PRN IM DECREASED GLUCOSE; Start 01/13/19 at 15:30 Glucose (Glutose) 15 gm Q15M PRN BUCCAL DECREASED GLUCOSE; Start 01/13/19 at 15:30 Zolpidem Tartrate (Ambien) 10 mg HS PRN PO INSOMNIA Last administered on 01/13/19at 22:56; Admin Dose 10 MG; Start 01/13/19 at 23:00 Epoetin Cam-epbx (Retacrit (Esrd)) 4,000 unit TuThSa@1700 SC Last administered on 01/14/19at 17:52; Admin Dose 4,000 UNIT; Start 01/14/19 at 17:00 Levalbuterol (Xopenex Neb) 1.25 mg Q4H RESP THERAPY PRN HHN dyspnea; Start 01/14/19 at 19:00 Acetylcysteine (Mucomyst) 2 ml Q6H RESP THERAPY NEB Last administered on 01/17/19at 08:19; Admin Dose 2 ML; Start 01/15/19 at 02:00 Fentanyl 100 ml @ 5 mls/hr TITRATE IV Last administered on 01/17/19at 03:34; Admin Dose 5 MLS/HR; Start 01/15/19 at 17:30 Meropenem/Sodium Chloride 50 ml @ 100 mls/hr Q12H IVPB Last administered on 01/17/19 05:33; Admin Dose 100 MLS/HR; Start 01/15/19 at 17:30 Norepinephrine 250 ml @ 1.875 mls/ hr TITRATE IV Last administered on 01/17/19 05:33; Admin Dose 30 MLS/HR; Start 01/15/19 at 17:30 Insulin Aspart (Novolog Insulin Pen) NOVOLOG *MILD* ALGORITHM Q4 SC ; Start 01/15/19 at 17:55 Ipratropium [place] (Atrovent Hfa) 4 puff Q6H RESP THERAPY INH Last administered on 01/17/19 08:18; Admin Dose 4 PUFF; Start 01/15/19 at 20:00 Albuterol (Ventolin Hfa) 4 puff Q6H RESP THERAPY INH Last administered on 01/17/19 08:19; Admin Dose 4 PUFF; Start 01/15/19 at 20:00 Famotidine (Pepcid Iv) 20 mg Q24H IV Last administered on 01/17/19 05:33; Admin Dose 20 MG; Start 01/16/19 at 06:00 Propofol 100 ml @ 2.46 mls/hr Q12H IV Last administered on 01/17/19 03:33; Admin Dose 7.38 MLS/HR; Start 01/15/19 at 23:00 Vasopressin 60 unit/Dextrose 60 ml @ 1.2 mls/hr Q12H IV Last administered on 01/17/19at 03:39; Admin Dose 1.2 MLS/HR; Start 01/16/19 at 02:30 Phenylephrine HCl 250 ml @ 75 mls/hr TITRATE IV ; Start 01/16/19 at 10:30 Caspofungin 35 mg/ Sodium Chloride 250 ml @ 250 mls/hr Q24H IVPB ; Start 01/17/19 at 15:00 Metoclopramide HCl (Reglan) 5 mg Q6H PRN IV feeding residual Last administered on 01/17/19 03:43; Admin Dose 5 MG; Start 01/17/19 at 03:30 Docusate Sodium (Colace Liquid Cup) 100 mg BID NGT ; Start 01/17/19 at 21:00 Collagenase (Santyl) 1 applic BID TOP ; Start 01/17/19 at 21:00 Amiodarone HCl 900 mg/Dextrose 500 ml @ 0 mls/hr Q0M IV ; Start 01/17/19 at 10:30 Wilfred Decker DO Jan 17, 2019 11:17
--- NOTE | 2019-01-17 11:42 | CONS ---
Assessment/Plan Assessment/Plan Assessment/Plan (Daily) 73 y/o with 1 End-stage renal disease on hemodialysis. hemodialysis Wednesday, and Wednesday via left arm AV fistula 2. Septic shock , likely secondary to pneumonia/ cholecystitis. with elevated bilirubin 3. Elevated trop 4. Hypokalemia, resolved. 5. Leukocytosis. 6. Shortness of breath, cough, weakness, leukocytosis of 26.8, likely secondary to pneumonia. with hypoxic and hypercapnic resp failure 7. Hyperbilirubinemia, abnormal liver function tests. 8. respiratory failure, likely secondary to pneumonia. 9. Hypertension, currently hypotensive 10. Dyslipidemia. 11. Diabetes. 12. Anemia chronic disease 13. encephalopathy, ALOC 14 Respiratory failure s/p intubation 15 New onset AFIB 16 Abnormal LFT with elevated Bili/direct/alk phos and elevation of transaminases ? r/o obstruction Assessment/Plan (Daily) -on vent - On Amio per cards - cw pressor support, still on 2 pressors - pt with worsening LFT > GI eval and imaging - HD tmw with low blood flow -avoid nephrotoxic drugs -c/w Epogen after HD -cw vanco/meropenam/caspo per ID Consultation Date/Type/Reason Admit Date/Time January 13, 2019 at 00:07 Initial Consult Date 01/15/19 Date/Time of Note DATE: 01/17/19 TIME: 11:42 24 HR Interval Summary Free Text/Dictation afib this am remains on 2pressors scleral icterus Exam/Review of Systems Exam Vitals Vital Signs Date Temp Pulse Resp B/P (MAP) Pulse Ox O2 O2 Flow FiO2 Time Delivery Rate 01/17/19 104 21 94/47 (63) 97 11:15 01/17/19 Mechanical 11:00 Ventilator 01/17/19 40 08:00 01/17/19 98.5 04:00 01/14/19 15.0 20:00 Intake and Output 01/16/19 01/16/19 01/17/19 1515:00 23:00 07:00 IntakeIntake Total 454.425 ml 865.66 ml 405.46 ml OutputOutput Total 1700 ml BalanceBalance -1245.575 ml 865.66 ml 405.46 ml Exam intubated , left arm AV fistula Head: normocephalic, scleral icterus++ Neck: supple Respiratory: diminished breath sounds Cardiovascular: regular rate and rhythm Gastrointestinal: soft, nl liver, spleen, non-tender, ascites, bowel sounds, distended, firm, hepatomegaly, mass, rebound or guarding, splenomegaly, surgical scars, tender, other (pos. Richter sign) Skin: other (pale) edema + Results Result Diagram: 01/17/19 0442 01/17/19 0442 Results 24hrs Laboratory Tests Test 01/16/19 12:25 01/16/19 16:52 01/16/19 21:29 01/17/19 02:39 Bedside Glucose 72 80 80 76 Test 01/17/19 04:41 01/17/19 04:42 01/17/19 07:00 01/17/19 07:57 Bedside Glucose 86 91 White Blood Count 24.6 H Red Blood Count 2.95 L Hemoglobin 9.4 L Hematocrit 29.5 L Mean Corpuscular 100.0 Volume Mean Corpuscular 31.9 Hemoglobin Mean Corpuscular 31.9 L Hemoglobin Concent Red Cell 14.7 H Distribution Width Platelet Count 86 #L Mean Platelet 11.7 H Volume Immature 2.000 H Granulocytes % Neutrophils % Segmented 86 H Neutrophils % (Manual) Band Neutrophils % 4 (Manual) Lymphocytes % Lymphocytes % 2 L (Manual) Monocytes % Monocytes % 1 (Manual) Eosinophils % Eosinophils % 5 (Manual) Basophils % Basophils % 2 (Manual) Nucleated Red 0.2 H Blood Cells % Immature 0.490 H Granulocytes # Neutrophils # Neutrophils # 21.4 H (Manual) Band Neutrophils # 0.9 H Lymphocytes 0.4 L (Manual) Lymphocytes # Monocytes # Monocytes # 0.2 L (Manual) Eosinophils # Basophils # Basophils # 0.4 H (Manual) Nucleated Red Blood Cells # Platelet Estimate DECREASED Polychromasia 3+ Poikilocytosis 3+ Anisocytosis 2+ Macrocytosis 1+ Sodium Level 141 Potassium Level 4.1 Chloride Level 104 Carbon Dioxide 25 Level Anion Gap 12 Blood Urea 24 #H Nitrogen Creatinine 3.40 H Est Glomerular Filtrat Rate mL/min Glucose Level 80 Calcium Level 9.3 Phosphorus Level 3.9 Magnesium Level 2.1 Blood Gas Specimen Blood arterial Source Arterial Blood 01/17/2019 7:51:19 Date Drawn AM Arterial Blood pH 7.384 (Temp corrected) Arterial Blood 42.5 pCO2 (Temp correct) Arterial Blood pO2 67.3 L (Temp corrected) Arterial Blood 24.8 HCO3 Arterial Blood -0.3 Base Excess Arterial Blood 92.1 L Oxygen Saturation Jaiden Test ACCEPTAB Arterial Blood Gas Right Radial Puncture Site Arterial 0.3 Blood Carboxyhemog lobin Arterial Blood 0 Methemoglobin Blood Gas A-a O2 169.0 H Differential Oxyhemoglobin 91.8 L Percent Blood Gas 37.0 Temperature Blood Gas 20.0 Respiration Rate Blood Gas Actual 20 Respiration Rate Blood Gas Modality VENT - AC FiO2 40.0 Blood Gas Tidal 500.0 Volume Blood Gas Low PEEP 5.0 Setting Blood Gas Notified TM Whom Blood Gas Notified 01/17/2019 8:12:03 Time AM Medications Medication Current Medications Vancomycin HCl (Vanco Iv Per Pharmacy) VANCOMYCIN PER PHARMACY PER PROTOCOL XX ; Start 01/13/19 at 02:00 IV Flush (NS 3 ml) 3 ml PER PROTOCOL IV ; Start 01/13/19 at 02:00 Acetaminophen (Tylenol Tab) 650 mg Q6H PRN PO .PAIN 1-3 OR TEMP Last administered on 01/16/19 08:05; Admin Dose 650 MG; Start 01/13/19 at 02:00 Acetaminophen/ Hydrocodone Bitart ([place] (5/325)) 1 tab Q6H PRN PO .PAIN 4-6 Last administered on 01/15/19 13:40; Admin Dose 1 TAB; Start 01/13/19 at 02:00 Docusate Sodium (Colace) 100 mg Q12H PRN PO .CONSTIPATION; Start 01/13/19 at 02:00 Bisacodyl (Dulcolax) 5 mg DAILY PRN PO .CONSTIPATION; Start 01/13/19 at 02:00 Heparin Sodium (Porcine) (Heparin (5000 Units/1ml)) 5,000 unit Q8 SC Last adm inistered on 01/17/19at 05:34; Admin Dose 5,000 UNIT; Start 01/13/19 at 06:00 Atorvastatin Calcium (Lipitor) 40 mg DAILY@21 PO Last administered on 01/16/19at 21:40; Admin Dose 40 MG; Start 01/13/19 at 21:00 Carvedilol (Coreg) 12.5 mg BID PO ; Start 01/13/19 at 09:00; Status Hold Ferrous Sulfate (Ferrous Sulfate (Ec)) 325 mg BID PO Last administered on 01/17/19 08:02; Admin Dose 325 MG; Start 01/13/19 at 09:00 Folic Acid (Folic Acid) 1 mg DAILY PO Last administered on 01/17/19 08:02; Admin Dose 1 MG; Start 01/13/19 at 09:00 Insulin Glargine (Lantus) 20 units QHS SC Last administered on 01/14/19at 22:04; Admin Dose 20 UNITS; Start 01/13/19 at 21:00; Status Hold Aspirin (Aspirin) 81 mg DAILY PO Last administered on 01/17/19 08:02; Admin Dose 81 MG; Start 01/13/19 at 11:00 Miscellaneous Information 1 ea NOTE XX ; Start 01/13/19 at 15:30 Glucose (Glutose) 15 gm Q15M PRN PO DECREASED GLUCOSE; Start 01/13/19 at 15:30 Glucose (Glutose) 22.5 gm Q15M PRN PO DECREASED GLUCOSE; Start 01/13/19 at 15:30 Dextrose (D50w Syringe) 25 ml Q15M PRN IV DECREASED GLUCOSE; Start 01/13/19 at 15:30 Dextrose (D50w Syringe) 50 ml Q15M PRN IV DECREASED GLUCOSE; Start 01/13/19 at 15:30 Glucagon (Glucagen) 1 mg Q15M PRN IM DECREASED GLUCOSE; Start 01/13/19 at 15:30 Glucose (Glutose) 15 gm Q15M PRN BUCCAL DECREASED GLUCOSE; Start 01/13/19 at 15:30 Zolpidem Tartrate (Ambien) 10 mg HS PRN PO INSOMNIA Last administered on 01/13/19at 22:56; Admin Dose 10 MG; Start 01/13/19 at 23:00 Epoetin Cam-epbx (Retacrit (Esrd)) 4,000 unit TuThSa@1700 SC Last administered on 01/14/19at 17:52; Admin Dose 4,000 UNIT; Start 01/14/19 at 17:00 Levalbuterol (Xopenex Neb) 1.25 mg Q4H RESP THERAPY PRN HHN dyspnea; Start 01/14/19 at 19:00 Acetylcysteine (Mucomyst) 2 ml Q6H RESP THERAPY NEB Last administered on 01/17/19at 08:19; Admin Dose 2 ML; Start 01/15/19 at 02:00 Fentanyl 100 ml @ 5 mls/hr TITRATE IV Last administered on 01/17/19 03:34; Admin Dose 5 MLS/HR; Start 01/15/19 at 17:30 Meropenem/Sodium Chloride 50 ml @ 100 mls/hr Q12H IVPB Last administered on 01/17/19 05:33; Admin Dose 100 MLS/HR; Start 01/15/19 at 17:30 Norepinephrine 250 ml @ 1.875 mls/ hr TITRATE IV Last administered on 01/17/19 05:33; Admin Dose 30 MLS/HR; Start 01/15/19 at 17:30 Insulin Aspart (Novolog Insulin Pen) NOVOLOG *MILD* ALGORITHM Q4 SC ; Start 01/15/19 at 17:55 Ipratropium [place] (Atrovent Hfa) 4 puff Q6H RESP THERAPY INH Last administered on 01/17/19 08:18; Admin Dose 4 PUFF; Start 01/15/19 at 20:00 Albuterol (Ventolin Hfa) 4 puff Q6H RESP THERAPY INH Last administered on 01/17/19 08:19; Admin Dose 4 PUFF; Start 01/15/19 at 20:00 Famotidine (Pepcid Iv) 20 mg Q24H IV Last administered on 01/17/19 05:33; Admin Dose 20 MG; Start 01/16/19 at 06:00 Propofol 100 ml @ 2.46 mls/hr Q12H IV Last administered on 01/17/19 03:33; Admin Dose 7.38 MLS/HR; Start 01/15/19 at 23:00 Vasopressin 60 unit/Dextrose 60 ml @ 1.2 mls/hr Q12H IV Last administered on 01/17/19 03:39; Admin Dose 1.2 MLS/HR; Start 01/16/19 at 02:30 Phenylephrine HCl 250 ml @ 75 mls/hr TITRATE IV ; Start 01/16/19 at 10:30 Caspofungin 35 mg/ Sodium Chloride 250 ml @ 250 mls/hr Q24H IVPB ; Start 01/17/19 at 15:00 Metoclopramide HCl (Reglan) 5 mg Q6H PRN IV feeding residual Last administered on 6/4/19at 03:43; Admin Dose 5 MG; Start 01/17/19 at 03:30 Docusate Sodium (Colace Liquid Cup) 100 mg BID NGT ; Start 01/17/19 at 21:00 Collagenase (Santyl) 1 applic BID TOP ; Start 01/17/19 at 21:00 Amiodarone HCl 900 mg/Dextrose 500 ml @ 0 mls/hr Q0M IV Last administered on 01/17/19at 11:32; Admin Dose 33.3 MLS/HR; Start 01/17/19 at 10:30 Miscellaneous Information (*Rx Drug Level Order Reminder*) VANCO RANDOM 01/18 @ 0,500 0500 ONCE XX ; Start 01/18/19 at 05:00; Stop 01/18/19 at 05:01 JUAN NOLAND MD Jan 17, 2019 11:42
--- NOTE | 2019-01-17 13:38 | CONS ---
Assessment/Plan Assessment/Plan Hospital Course (Demo Recall) No acute changes overnight patient remains on double pressors intubated in no distress. T-max 100.60 current 99.4. WBC 24.6 H&H 9.4 and 29.5 platelets 86 bands 4 total bilirubin 7.3. Chest x-ray revealed left greater than right patchy multifocal airspace infiltrate/pneumonia slightly increased Antimicrobials: Cancidas vancomycin, Merrem Indwelling's endotracheal tube, NG tube, right IJ triple-lumen catheter, left upper extremity AV fistula Antimicrobials: Vancomycin, meropenem, Zithromax Physical examination: Chronically ill-appearing elderly man who is intubated sedated in no distress. Head atraumatic normocephalic sclera nonicteric vehicle mucosa dry. Neck is supple chest rise symmetrical breath sounds diminished bases. Heart: S1-S2. Abdomen soft bowel sounds present. Extremities with bilateral edema. Assessment: 1. Severe sepsis with shock 2. Acute hypoxemic respiratory failure 3. Healthcare associated pneumonia possibly aspirated 4. CHF 5. End-stage renal disease, hemodialysis dependent 6. Coronary artery disease 7. Transaminitis with elevated total bilirubin Plan: Patient remains on double pressor support, still with significant leukocytosis, pending sputum culture, consider CT of the abdomen and pelvis Consultation Date/Type/Reason Admit Date/Time January 13, 2019 at 00:07 Initial Consult Date 01/15/19 Type of Consult id Date/Time of Note DATE: 01/17/19 TIME: 13:36 Exam/Review of Systems Exam Vitals Vital Signs Date Temp Pulse Resp B/P (MAP) Pulse Ox O2 O2 Flow FiO2 Time Delivery Rate 01/17/19 112 26 91/35 (53) 93 Mechanical 13:00 Ventilator 01/17/19 99.4 12:00 01/17/19 40 11:39 01/14/19 15.0 20:00 Intake and Output 01/16/19 01/16/19 01/17/19 1515:00 23:00 07:00 IntakeIntake Total 454.425 ml 865.66 ml 405.46 ml OutputOutput Total 1700 ml BalanceBalance -1245.575 ml 865.66 ml 405.46 ml Results Result Diagram: 01/17/19 0442 01/17/19 0442 Results 24hrs Laboratory Tests Test 01/16/19 16:52 01/16/19 21:29 01/17/19 02:39 01/17/19 04:41 Bedside Glucose 80 80 76 86 Test 01/17/19 04:42 01/17/19 07:00 01/17/19 07:57 01/17/19 12:41 White Blood Count 24.6 H Red Blood Count 2.95 L Hemoglobin 9.4 L Hematocrit 29.5 L Mean Corpuscular 100.0 Volume Mean Corpuscular 31.9 Hemoglobin Mean Corpuscular 31.9 L Hemoglobin Concent Red Cell 14.7 H Distribution Width Platelet Count 86 #L Mean Platelet 11.7 H Volume Immature 2.000 H Granulocytes % Neutrophils % Segmented 86 H Neutrophils % (Manual) Band Neutrophils % 4 (Manual) Lymphocytes % Lymphocytes % 2 L (Manual) Monocytes % Monocytes % 1 (Manual) Eosinophils % Eosinophils % 5 (Manual) Basophils % Basophils % 2 (Manual) Nucleated Red 0.2 H Blood Cells % Immature 0.490 H Granulocytes # Neutrophils # Neutrophils # 21.4 H (Manual) Band Neutrophils # 0.9 H Lymphocytes 0.4 L (Manual) Lymphocytes # Monocytes # Monocytes # 0.2 L (Manual) Eosinophils # Basophils # Basophils # 0.4 H (Manual) Nucleated Red Blood Cells # Platelet Estimate DECREASED Polychromasia 3+ Poikilocytosis 3+ Anisocytosis 2+ Macrocytosis 1+ Sodium Level 141 Potassium Level 4.1 Chloride Level 104 Carbon Dioxide 25 Level Anion Gap 12 Blood Urea 24 #H Nitrogen Creatinine 3.40 H Est Glomerular Filtrat Rate mL/min Glucose Level 80 Calcium Level 9.3 Phosphorus Level 3.9 Magnesium Level 2.1 Blood Gas Specimen Blood arterial Source Arterial Blood 01/17/2019 7:51:19 Date Drawn AM Arterial Blood pH 7.384 (Temp corrected) Arterial Blood 42.5 pCO2 (Temp correct) Arterial Blood pO2 67.3 L (Temp corrected) Arterial Blood 24.8 HCO3 Arterial Blood -0.3 Base Excess Arterial Blood 92.1 L Oxygen Saturation Jaiden Test ACCEPTAB Arterial Blood Gas Right Radial Puncture Site Arterial 0.3 Blood Carboxyhemog lobin Arterial Blood 0 Methemoglobin Blood Gas A-a O2 169.0 H Differential Oxyhemoglobin 91.8 L Percent Blood Gas 37.0 Temperature Blood Gas 20.0 Respiration Rate Blood Gas Actual 20 Respiration Rate Blood Gas Modality VENT - AC FiO2 40.0 Blood Gas Tidal 500.0 Volume Blood Gas Low PEEP 5.0 Setting Blood Gas Notified TM Whom Blood Gas Notified 01/17/2019 8:12:03 Time AM Bedside Glucose 91 Prothrombin Time 17.4 H Prothrombin Time 1.4 Ratio INR International 1.41 Normalized Ratio Total Bilirubin 7.3 H Direct Bilirubin 6.40 H Indirect Bilirubin 0.9 Aspartate Amino 109 H Transf (AST/SGOT) Alanine 46 Aminotransferase ( ALT/SGPT) Alkaline 234 H Phosphatase Total Protein 5.8 L Albumin 2.6 L Test 01/17/19 13:06 Bedside Glucose 112 Medications Medication Current Medications Vancomycin HCl (Vanco Iv Per Pharmacy) VANCOMYCIN PER PHARMACY PER PROTOCOL XX ; Start 01/13/19 at 02:00 IV Flush (NS 3 ml) 3 ml PER PROTOCOL IV ; Start 01/13/19 at 02:00 Acetaminophen (Tylenol Tab) 650 mg Q6H PRN PO .PAIN 1-3 OR TEMP Last administered on 01/16/19at 08:05; Admin Dose 650 MG; Start 01/13/19 at 02:00 Acetaminophen/ Hydrocodone Bitart ([place] (5/325)) 1 tab Q6H PRN PO .PAIN 4-6 Last administered on 01/15/19at 13:40; Admin Dose 1 TAB; Start 01/13/19 at 02:00 Docusate Sodium (Colace) 100 mg Q12H PRN PO .CONSTIPATION; Start 01/13/19 at 02:00 Bisacodyl (Dulcolax) 5 mg DAILY PRN PO .CONSTIPATION; Start 01/13/19 at 02:00 Heparin Sodium (Porcine) (Heparin (5000 Units/1ml)) 5,000 unit Q8 SC Last administered on 01/17/19at 05:34; Admin Dose 5,000 UNIT; Start 01/13/19 at 06:00 Atorvastatin Calcium (Lipitor) 40 mg DAILY@21 PO Last administered on 01/16/19at 21:40; Admin Dose 40 MG; Start 01/13/19 at 21:00 Carvedilol (Coreg) 12.5 mg BID PO ; Start 01/13/19 at 09:00; Status Hold Ferrous Sulfate (Ferrous Sulfate (Ec)) 325 mg BID PO Last administered on at 08:02; Admin Dose 325 MG; Start 01/13/19 at 09:00 Folic Acid (Folic Acid) 1 mg DAILY PO Last administered on 01/17/19at 08:02; Admin Dose 1 MG; Start 01/13/19 at 09:00 Insulin Glargine (Lantus) 20 units QHS SC Last administered on 01/14/19at 22:04; Admin Dose 20 UNITS; Start 01/13/19 at 21:00; Status Hold Aspirin (Aspirin) 81 mg DAILY PO Last administered on 01/17/19at 08:02; Admin Dose 81 MG; Start 01/13/19 at 11:00 Miscellaneous Information 1 ea NOTE XX ; Start 01/13/19 at 15:30 Glucose (Glutose) 15 gm Q15M PRN PO DECREASED GLUCOSE; Start 01/13/19 at 15:30 Glucose (Glutose) 22.5 gm Q15M PRN PO DECREASED GLUCOSE; Start 01/13/19 at 15:30 Dextrose (D50w Syringe) 25 ml Q15M PRN IV DECREASED GLUCOSE; Start 01/13/19 at 15:30 Dextrose (D50w Syringe) 50 ml Q15M PRN IV DECREASED GLUCOSE; Start 01/13/19 at 15:30 Glucagon (Glucagen) 1 mg Q15M PRN IM DECREASED GLUCOSE; Start 01/13/19 at 15:30 Glucose (Glutose) 15 gm Q15M PRN BUCCAL DECREASED GLUCOSE; Start 01/13/19 at 15:30 Epoetin Cam-epbx (Retacrit (Esrd)) 4,000 unit TuThSa@1700 SC Last administered on 01/14/19at 17:52; Admin Dose 4,000 UNIT; Start 01/14/19 at 17:00 Levalbuterol (Xopenex Neb) 1.25 mg Q4H RESP THERAPY PRN HHN dyspnea; Start 01/14/19 at 19:00 Acetylcysteine (Mucomyst) 2 ml Q6H RESP THERAPY NEB Last administered on 01/17/19at 08:19; Admin Dose 2 ML; Start 01/15/19 at 02:00 Fentanyl 100 ml @ 5 mls/hr TITRATE IV Last administered on 01/17/19at 03:34; Admin Dose 5 MLS/HR; Start 01/15/19 at 17:30 Meropenem/Sodium Chloride 50 ml @ 100 mls/hr Q12H IVPB Last administered on 01/17/19 05:33; Admin Dose 100 MLS/HR; Start 01/15/19 at 17:30 Norepinephrine 250 ml @ 1.875 mls/ hr TITRATE IV Last administered on 01/17/19 05:33; Admin Dose 30 MLS/HR; Start 01/15/19 at 17:30 Insulin Aspart (Novolog Insulin Pen) NOVOLOG *MILD* ALGORITHM Q4 SC ; Start 01/15/19 at 17:55 Ipratropium [place] (Atrovent Hfa) 4 puff Q6H RESP THERAPY INH Last administered on 01/17/19 08:18; Admin Dose 4 PUFF; Start 01/15/19 at 20:00 Albuterol (Ventolin Hfa) 4 puff Q6H RESP THERAPY INH Last administered on 01/17/19 08:19; Admin Dose 4 PUFF; Start 01/15/19 at 20:00 Famotidine (Pepcid Iv) 20 mg Q24H IV Last administered on 01/17/19 05:33; Admin Dose 20 MG; Start 01/16/19 at 06:00 Propofol 100 ml @ 2.46 mls/hr Q12H IV Last administered on 01/17/19 03:33; Admin Dose 7.38 MLS/HR; Start 01/15/19 at 23:00 Vasopressin 60 unit/Dextrose 60 ml @ 1.2 mls/hr Q12H IV Last administered on 01/17/19 03:39; Admin Dose 1.2 MLS/HR; Start 01/16/19 at 02:30 Phenylephrine HCl 250 ml @ 75 mls/hr TITRATE IV ; Start 01/16/19 at 10:30 Caspofungin 35 mg/ Sodium Chloride 250 ml @ 250 mls/hr Q24H IVPB ; Start 01/17/19 at 15:00 Metoclopramide HCl (Reglan) 5 mg Q6H PRN IV feeding residual Last administered on 01/17/19 03:43; Admin Dose 5 MG; Start 01/17/19 at 03:30 Docusate Sodium (Colace Liquid Cup) 100 mg BID NGT ; Start 01/17/19 at 21:00 Collagenase (Santyl) 1 applic BID TOP ; Start 01/17/19 at 21:00 Amiodarone HCl 900 mg/Dextrose 500 ml @ 0 mls/hr Q0M IV Last administered on 01/17/19at 11:32; Admin Dose 33.3 MLS/HR; Start 01/17/19 at 10:30 Miscellaneous Information (*Rx Drug Level Order Reminder*) VANCO RANDOM 01/18 @ 0,500 0500 ONCE XX ; Start 01/18/19 at 05:00; Stop 01/18/19 at 05:01 REJI RUBIO NP Jan 17, 2019 13:38
[2019-01-17] MEDS: CASPOFUNGIN 35 MG in SOD CHLORIDE 0.9% 250 ML IVPB SCH (15:20)
--- NOTE | 2019-01-17 18:08 | CONS ---
Assessment/Plan Assessment/Plan Hospital Course (Demo Recall) Assessment: Elevated LFTs with direct hyperbilirubinemia -Hepatitis serologies negative Imaging conceding for concerning for cirrhosis -Mild ascites -Thrombocytopenia -Coagulopathy Normocytic anemia Mild diffuse colitis on imaging Leukocytosis Healthcare associated pneumonia Hypoxic respiratory failure -intubated on MV NSTEMI, type II Coronary artery disease -History of CABG ESRD DM HTN Plan: Will order SAÚL, AMA, ASMA,ammonia level MRCP when patient stable to rule out common bile duct obstruction versus hepatocellular disease Trend LFTs Supportive care mild diffuse colitis on imaging- no bm since admission noted- will order lactulose PRN TF as tolerated- Reglan PRN for high residuals Patient seen in collaboration with Dr. Resendez CC: SEBASTIÁN RESENDEZ MD ; Consultation Date/Type/Reason Admit Date/Time January 13, 2019 at 00:07 Date of Consultation: Jan 17, 2019 Type of Consult GI Date/Time of Note DATE: 01/17/19 TIME: 17:37 Hx of Present Illness This is a 73-year-old male with past medical history of hypertension, coronary artery disease status post CABG, end-stage renal disease on hemodialysis Wednesday, , Wednesday with diabetes, back pain with left leg weakness who was admitted for sepsis deemed to believe secondary to healthcare associated pneumonia patient diagnosed with non-STEMI type II secondary to demand and hypoxia during hospitalization patient was intubated secondary to hypoxic/hypercapnic respiratory failure transferred to ICU.. During authorization imaging was obtained including a CT abdomen pelvis without contrast showing pulmonary consolidation stable cardiomegaly, nodule liver surface concerning for cirrhosis with mild ascites, findings compatible with mild diffuse colitis, cholelithiasis, moderate to moderate bilateral renal atrophy, mild fat-containing bilateral inguinal hernias without incarceration, subacute moderate compression deformity of T12 additionally his bilirubin has continued to trend up since admission currently hemoglobin is 7.3 this is a direct hyperbilirubinemia with an elevated alkaline phosphatase at 234 which has been down during admission and initially was 402 ALT is normal and AST is 109 again down from 127 upon initial admission GIs been consulted for further evaluation Subjective hx not possible: pt critical Past Medical History Home Meds Reported Medications Cholecalciferol* (Vitamin D3*) 1,000 Unit Tablet, 1000 UNIT PO DAILY, TAB 01/13/19 Multivit/Ca Carb/B Cmplx/Fa* (Celine-Alex*) 1 Tab Tab, 1 TAB PO DAILY, TAB 01/13/19 Aspirin* (Aspirin* EC) 81 Mg Tablet.dr, 81 MG PO DAILY, TAB 01/13/19 Rosuvastatin Calcium (Rosuvastatin Calcium) 10 Mg Tablet, 10 MG PO QAM for 30 Days, #30 01/13/19 Hydralazine Hcl* (Apresoline*) 50 Mg Tab, 50 MG PO TID for 30 Days, #90 01/13/19 Zolpidem Tartrate* (Zolpidem Tartrate*) 10 Mg Tablet, 10 MG PO QHS for 30 Days, #30 01/13/19 Amiodarone Hcl* (Amiodarone Hcl*) 200 Mg Tablet, 200 MG PO QAM for 30 Days, #30 01/13/19 Ibuprofen* (Ibuprofen*) 800 Mg Tab, 1600 MG PO BID PRN for PAIN, TAB 01/01/17 Folic Acid* (Folic Acid*) 1 Mg Tablet, 1 MG PO DAILY, TAB 01/01/17 Discontinued Reported Medications Insulin Regular, Human (Humulin R) 100 Unit/1 Ml Vial, 0 IJ SLIDING SCALES, VIAL 01/01/17 Folic Acid/Vitamin B Comp W-C (Full Spectrum B With Vit C Tab) 0.8 Mg Tablet, 0.8 MG PO DAILY, TAB 01/01/17 Ferrous Sulfate* (Ferrous Sulfate*) 325 Mg Tabec, 325 MG PO BID, TAB 01/01/17 Citric Acid/Sodium Citrate (Cytra-2 Oral Solution) 473 Ml Solution, 473 ML PO DAILY 01/01/17 Insulin Glargine* (Lantus*) 100 Unit/Ml Soln, 20 UNIT SC QHS, #1 VIAL 01/01/17 Glimepiride* (Amaryl*) 4 Mg Tablet, 4 MG PO BID 08/05/09 Fenofibrate Nanocrystallized* (Tricor*) 145 Mg Tablet, 145 MG PO DAILY 08/05/09 Discontinued Scripts Cholecalciferol* (Vitamin D3*) 1,000 Unit Tablet, 1000 UNIT PO DAILY for 28 Days, TAB Prov:REINIER GIBSON MD 12/18/16 Nifedipine (Afeditab CR) 60 Mg Tablet.sa, 60 MG PO BID for 28 Days Prov:REINIER GIBSON MD 12/18/16 Doxazosin Mesylate* (Cardura*) 4 Mg Tablet, 4 MG PO DAILY@21 for 10 Days, TAB Prov:REINIER GIBSON MD 12/18/16 Clonidine Hcl* (Catapres*) 0.2 Mg Tablet, 0.2 MG PO TID for 28 Days, TAB Prov:REINIRE GIBSON MD 12/18/16 Carvedilol* (Carvedilol*) 12.5 Mg Tablet, 12.5 MG PO BID for 14 Days, TAB Prov:ERINIER GIBSON MD 12/18/16 Atorvastatin* (Atorvastatin*) 40 Mg Tablet, 40 MG PO DAILY@21 for 14 Days, TAB Prov:REINIER GIBSON MD 12/18/16 Medications Current Medications Vancomycin HCl (Vanco Iv Per Pharmacy) VANCOMYCIN PER PHARMACY PER PROTOCOL XX ; Start 01/13/19 at 02:00 IV Flush (NS 3 ml) 3 ml PER PROTOCOL IV ; Start 01/13/19 at 02:00 Acetaminophen (Tylenol Tab) 650 mg Q6H PRN PO .PAIN 1-3 OR TEMP Last administered on 01/16/19at 08:05; Admin Dose 650 MG; Start 01/13/19 at 02:00 Acetaminophen/ Hydrocodone Bitart ([place] (5/325)) 1 tab Q6H PRN PO .PAIN 4-6 Last administered on 01/15/19at 13:40; Admin Dose 1 TAB; Start 01/13/19 at 02:00 Docusate Sodium (Colace) 100 mg Q12H PRN PO .CONSTIPATION; Start 01/13/19 at 02:00 Bisacodyl (Dulcolax) 5 mg DAILY PRN PO .CONSTIPATION; Start 01/13/19 at 02:00 Heparin Sodium (Porcine) (Heparin (5000 Units/1ml)) 5,000 unit Q8 SC Last administered on 01/17/19at 13:58; Admin Dose 5,000 UNIT; Start 01/13/19 at 06:00 Atorvastatin Calcium (Lipitor) 40 mg DAILY@21 PO Last administered on 01/16/19at 21:40; Admin Dose 40 MG; Start 01/13/19 at 21:00 Carvedilol (Coreg) 12.5 mg BID PO ; Start 01/13/19 at 09:00; Status Hold Ferrous Sulfate (Ferrous Sulfate (Ec)) 325 mg BID PO Last administered on 01/17/19at 08:02; Admin Dose 325 MG; Start 01/13/19 at 09:00 Folic Acid (Folic Acid) 1 mg DAILY PO Last administered on 01/17/19 08:02; Admin Dose 1 MG; Start 01/13/19 at 09:00 Insulin Glargine (Lantus) 20 units QHS SC Last administered on 01/14/19at 22:04; Admin Dose 20 UNITS; Start 01/13/19 at 21:00; Status Hold Aspirin (Aspirin) 81 mg DAILY PO Last administered on 01/17/19at 08:02; Admin Dose 81 MG; Start 01/13/19 at 11:00 Miscellaneous Information 1 ea NOTE XX ; Start 01/13/19 at 15:30 Glucose (Glutose) 15 gm Q15M PRN PO DECREASED GLUCOSE; Start 01/13/19 at 15:30 Glucose (Glutose) 22.5 gm Q15M PRN PO DECREASED GLUCOSE; Start 01/13/19 at 15:30 Dextrose (D50w Syringe) 25 ml Q15M PRN IV DECREASED GLUCOSE; Start 01/13/19 at 15:30 Dextrose (D50w Syringe) 50 ml Q15M PRN IV DECREASED GLUCOSE; Start 01/13/19 at 15:30 Glucagon (Glucagen) 1 mg Q15M PRN IM DECREASED GLUCOSE; Start 01/13/19 at 15:30 Glucose (Glutose) 15 gm Q15M PRN BUCCAL DECREASED GLUCOSE; Start 01/13/19 at 15:30 Epoetin Cam-epbx (Retacrit (Esrd)) 4,000 unit TuThSa@1700 SC Last administered on 01/14/19at 17:52; Admin Dose 4,000 UNIT; Start 01/14/19 at 17:00 Levalbuterol (Xopenex Neb) 1.25 mg Q4H RESP THERAPY PRN HHN dyspnea; Start 01/14/19 at 19:00 Acetylcysteine (Mucomyst) 2 ml Q6H RESP THERAPY NEB Last administered on 01/17/19at 13:46; Admin Dose 2 ML; Start 01/15/19 at 02:00 Fentanyl 100 ml @ 5 mls/hr TITRATE IV Last administered on 01/17/19at 03:34; Ad min Dose 5 MLS/HR; Start 01/15/19 at 17:30 Meropenem/Sodium Chloride 50 ml @ 100 mls/hr Q12H IVPB Last administered on 01/17/19 05:33; Admin Dose 100 MLS/HR; Start 01/15/19 at 17:30 Norepinephrine 250 ml @ 1.875 mls/ hr TITRATE IV Last administered on 01/17/19 13:53; Admin Dose 30 MLS/HR; Start 01/15/19 at 17:30 Insulin Aspart (Novolog Insulin Pen) NOVOLOG *MILD* ALGORITHM Q4 SC ; Start 01/15/19 at 17:55 Ipratropium [place] (Atrovent Hfa) 4 puff Q6H RESP THERAPY INH Last administered on 01/17/19 13:46; Admin Dose 4 PUFF; Start 01/15/19 at 20:00 Albuterol (Ventolin Hfa) 4 puff Q6H RESP THERAPY INH Last administered on 01/17/19 13:46; Admin Dose 4 PUFF; Start 01/15/19 at 20:00 Famotidine (Pepcid Iv) 20 mg Q24H IV Last administered on 01/17/19 05:33; Admin Dose 20 MG; Start 01/16/19 at 06:00 Propofol 100 ml @ 2.46 mls/hr Q12H IV Last administered on 01/17/19 14:44; Admin Dose 9.84 MLS/HR; Start 01/15/19 at 23:00 Vasopressin 60 unit/Dextrose 60 ml @ 1.2 mls/hr Q12H IV Last administered on 01/17/19 03:39; Admin Dose 1.2 MLS/HR; Start 01/16/19 at 02:30 Phenylephrine HCl 250 ml @ 75 mls/hr TITRATE IV ; Start 01/16/19 at 10:30 Caspofungin 35 mg/ Sodium Chloride 250 ml @ 250 mls/hr Q24H IVPB Last administered on 01/17/19 15:20; Admin Dose 250 MLS/HR; Start 01/17/19 at 15:00 Metoclopramide HCl (Reglan) 5 mg Q6H PRN IV feeding residual Last administered on 01/17/19 15:21; Admin Dose 5 MG; Start 01/17/19 at 03:30 Docusate Sodium (Colace Liquid Cup) 100 mg BID NGT ; Start 01/17/19 at 21:00 Collagenase (Santyl) 1 applic BID TOP ; Start 01/17/19 at 21:00 Amiodarone HCl 900 mg/Dextrose 500 ml @ 0 mls/hr Q0M IV Last administered on 01/17/19at 11:32; Admin Dose 33.3 MLS/HR; Start 01/17/19 at 10:30 Miscellaneous Information (*Rx Drug Level Order Reminder*) VANCO RANDOM 01/18 @ 0,500 0500 ONCE XX ; Start 01/18/19 at 05:00; Stop 01/18/19 at 05:01 Allergies: Coded Allergies: No Known Allergy (Unverified , 01/13/19) Past Surgical History Past Surgical Hx: coronary bypass surgery, other (AV fistula) Social History Alcohol Use: none Smoking Status: Former smoker Drug Use: none Exam/Review of Systems Exam Vitals Vital Signs Date Temp Pulse Resp B/P (MAP) Pulse Ox O2 O2 Flow FiO2 Time Delivery Rate 01/17/19 93 20 102/36 97 17:15 (58) 01/17/19 Mechanical 17:00 Ventilator 01/17/19 98.8 16:00 01/17/19 40 11:39 01/14/19 15.0 20:00 Intake and Output 01/16/19 01/16/19 01/17/19 1515:00 23:00 07:00 IntakeIntake Total 454.425 ml 865.66 ml 405.46 ml OutputOutput Total 1700 ml BalanceBalance -1245.575 ml 865.66 ml 405.46 ml Constitutional: other Head: normocephalic (Intubated sedated on pressors) ENMT: intubated Neck: supple Respiratory: diminished breath sounds Cardiovascular: regular rate and rhythm Gastrointestinal: soft, bowel sounds, distended Results Result Diagram: 01/17/19 0442 01/17/19 0442 Results 24hrs Laboratory Tests Test 01/16/19 21:29 01/17/19 02:39 01/17/19 04:41 01/17/19 04:42 Bedside Glucose 80 76 86 White Blood Count 24.6 H Red Blood Count 2.95 L Hemoglobin 9.4 L Hematocrit 29.5 L Mean Corpuscular 100.0 Volume Mean Corpuscular 31.9 Hemoglobin Mean Corpuscular 31.9 L Hemoglobin Concent Red Cell 14.7 H Distribution Width Platelet Count 86 #L Mean Platelet 11.7 H Volume Immature 2.000 H Granulocytes % Neutrophils % Segmented 86 H Neutrophils % (Manual) Band Neutrophils % 4 (Manual) Lymphocytes % Lymphocytes % 2 L (Manual) Monocytes % Monocytes % 1 (Manual) Eosinophils % Eosinophils % 5 (Manual) Basophils % Basophils % 2 (Manual) Nucleated Red 0.2 H Blood Cells % Immature 0.490 H Granulocytes # Neutrophils # Neutrophils # 21.4 H (Manual) Band Neutrophils # 0.9 H Lymphocytes 0.4 L (Manual) Lymphocytes # Monocytes # Monocytes # 0.2 L (Manual) Eosinophils # Basophils # Basophils # 0.4 H (Manual) Nucleated Red Blood Cells # Platelet Estimate DECREASED Polychromasia 3+ Poikilocytosis 3+ Anisocytosis 2+ Macrocytosis 1+ Sodium Level 141 Potassium Level 4.1 Chloride Level 104 Carbon Dioxide 25 Level Anion Gap 12 Blood Urea 24 #H Nitrogen Creatinine 3.40 H Est Glomerular Filtrat Rate mL/min Glucose Level 80 Calcium Level 9.3 Phosphorus Level 3.9 Magnesium Level 2.1 Test 01/17/19 07:00 01/17/19 07:57 01/17/19 12:41 01/17/19 13:06 Blood Gas Specimen Blood arterial Source Arterial Blood 01/17/2019 7:51:19 Date Drawn AM Arterial Blood pH 7.384 (Temp corrected) Arterial Blood 42.5 pCO2 (Temp correct) Arterial Blood pO2 67.3 L (Temp corrected) Arterial Blood 24.8 HCO3 Arterial Blood -0.3 Base Excess Arterial Blood 92.1 L Oxygen Saturation Jaiden Test ACCEPTAB Arterial Blood Gas Right Radial Puncture Site Arterial 0.3 Blood Carboxyhemog lobin Arterial Blood 0 Methemoglobin Blood Gas A-a O2 169.0 H Differential Oxyhemoglobin 91.8 L Percent Blood Gas 37.0 Temperature Blood Gas 20.0 Respiration Rate Blood Gas Actual 20 Respiration Rate Blood Gas Modality VENT - AC FiO2 40.0 Blood Gas Tidal 500.0 Volume Blood Gas Low PEEP 5.0 Setting Blood Gas Notified TM Whom Blood Gas Notified 01/17/2019 8:12:03 Time AM Bedside Glucose 91 112 Prothrombin Time 17.4 H Prothrombin Time 1.4 Ratio INR International 1.41 Normalized Ratio Total Bilirubin 7.3 H Direct Bilirubin 6.40 H Indirect Bilirubin 0.9 Aspartate Amino 109 H Transf (AST/SGOT) Alanine 46 Aminotransferase ( ALT/SGPT) Alkaline 234 H Phosphatase Total Protein 5.8 L Albumin 2.6 L Medications Medication Current Medications Vancomycin HCl (Vanco Iv Per Pharmacy) VANCOMYCIN PER PHARMACY PER PROTOCOL XX ; Start 01/13/19 at 02:00 IV Flush (NS 3 ml) 3 ml PER PROTOCOL IV ; Start 01/13/19 at 02:00 Acetaminophen (Tylenol Tab) 650 mg Q6H PRN PO .PAIN 1-3 OR TEMP Last administered on 01/16/19 08:05; Admin Dose 650 MG; Start 01/13/19 at 02:00 Acetaminophen/ Hydrocodone Bitart ([place] (5/325)) 1 tab Q6H PRN PO .PAIN 4-6 Last administered on 01/15/19 13:40; Admin Dose 1 TAB; Start 01/13/19 at 02:00 Docusate Sodium (Colace) 100 mg Q12H PRN PO .CONSTIPATION; Start 01/13/19 at 02:00 Bisacodyl (Dulcolax) 5 mg DAILY PRN PO .CONSTIPATION; Start 01/13/19 at 02:00 Heparin Sodium (Porcine) (Heparin (5000 Units/1ml)) 5,000 unit Q8 SC Last administered on 01/17/19 13:58; Admin Dose 5,000 UNIT; Start 01/13/19 at 06:00 Atorvastatin Calcium (Lipitor) 40 mg DAILY@21 PO Last administered on 01/16/19 21:40; Admin Dose 40 MG; Start 01/13/19 at 21:00 Carvedilol (Coreg) 12.5 mg BID PO ; Start 01/13/19 at 09:00; Status Hold Ferrous Sulfate (Ferrous Sulfate (Ec)) 325 mg BID PO Last administered on 01/17/19 08:02; Admin Dose 325 MG; Start 01/13/19 at 09:00 Folic Acid (Folic Acid) 1 mg DAILY PO Last administered on 01/17/19 08:02; Admin Dose 1 MG; Start 01/13/19 at 09:00 Insulin Glargine (Lantus) 20 units QHS SC Last administered on 01/14/19 22:04; Admin Dose 20 UNITS; Start 01/13/19 at 21:00; Status Hold Aspirin (Aspirin) 81 mg DAILY PO Last administered on 01/17/19at 08:02; Admin Dose 81 MG; Start 01/13/19 at 11:00 Miscellaneous Information 1 ea NOTE XX ; Start 01/13/19 at 15:30 Glucose (Glutose) 15 gm Q15M PRN PO DECREASED GLUCOSE; Start 01/13/19 at 15:30 Glucose (Glutose) 22.5 gm Q15M PRN PO DECREASED GLUCOSE; Start 01/13/19 at 15:30 Dextrose (D50w Syringe) 25 ml Q15M PRN IV DECREASED GLUCOSE; Start 01/13/19 at 15:30 Dextrose (D50w Syringe) 50 ml Q15M PRN IV DECREASED GLUCOSE; Start 01/13/19 at 15:30 Glucagon (Glucagen) 1 mg Q15M PRN IM DECREASED GLUCOSE; Start 01/13/19 at 15:30 Glucose (Glutose) 15 gm Q15M PRN BUCCAL DECREASED GLUCOSE; Start 01/13/19 at 15:30 Epoetin Cam-epbx (Retacrit (Esrd)) 4,000 unit TuThSa@1700 SC Last administered on 01/14/19at 17:52; Admin Dose 4,000 UNIT; Start 01/14/19 at 17:00 Levalbuterol (Xopenex Neb) 1.25 mg Q4H RESP THERAPY PRN HHN dyspnea; Start 01/14/19 at 19:00 Acetylcysteine (Mucomyst) 2 ml Q6H RESP THERAPY NEB Last administered on 01/17/19at 13:46; Admin Dose 2 ML; Start 01/15/19 at 02:00 Fentanyl 100 ml @ 5 mls/hr TITRATE IV Last administered on 01/17/19at 03:34; Admin Dose 5 MLS/HR; Start 01/15/19 at 17:30 Meropenem/Sodium Chloride 50 ml @ 100 mls/hr Q12H IVPB Last administered on 01/17/19at 05:33; Admin Dose 100 MLS/HR; Start 01/15/19 at 17:30 Norepinephrine 250 ml @ 1.875 mls/ hr TITRATE IV Last administered on 01/17/19at 13:53; Admin Dose 30 MLS/HR; Start 01/15/19 at 17:30 Insulin Aspart (Novolog Insulin Pen) NOVOLOG *MILD* ALGORITHM Q4 SC ; Start at 17:55 Ipratropium [place] (Atrovent Hfa) 4 puff Q6H RESP THERAPY INH Last administered on 01/17/19 13:46; Admin Dose 4 PUFF; Start 01/15/19 at 20:00 Albuterol (Ventolin Hfa) 4 puff Q6H RESP THERAPY INH Last administered on 01/17/19 13:46; Admin Dose 4 PUFF; Start 01/15/19 at 20:00 Famotidine (Pepcid Iv) 20 mg Q24H IV Last administered on 01/17/19 05:33; Admin Dose 20 MG; Start 01/16/19 at 06:00 Propofol 100 ml @ 2.46 mls/hr Q12H IV Last administered on 01/17/19 14:44; Admin Dose 9.84 MLS/HR; Start 01/15/19 at 23:00 Vasopressin 60 unit/Dextrose 60 ml @ 1.2 mls/hr Q12H IV Last administered on 01/17/19 03:39; Admin Dose 1.2 MLS/HR; Start 01/16/19 at 02:30 Phenylephrine HCl 250 ml @ 75 mls/hr TITRATE IV ; Start 01/16/19 at 10:30 Caspofungin 35 mg/ Sodium Chloride 250 ml @ 250 mls/hr Q24H IVPB Last administered on 01/17/19at 15:20; Admin Dose 250 MLS/HR; Start 01/17/19 at 15:00 Metoclopramide HCl (Reglan) 5 mg Q6H PRN IV feeding residual Last administered on 01/17/19at 15:21; Admin Dose 5 MG; Start 01/17/19 at 03:30 Docusate Sodium (Colace Liquid Cup) 100 mg BID NGT ; Start 01/17/19 at 21:00 Collagenase (Santyl) 1 applic BID TOP ; Start 01/17/19 at 21:00 Amiodarone HCl 900 mg/Dextrose 500 ml @ 0 mls/hr Q0M IV Last administered on 01/17/19at 11:32; Admin Dose 33.3 MLS/HR; Start 01/17/19 at 10:30 Miscellaneous Information (*Rx Drug Level Order Reminder*) VANCO RANDOM 01/18 @ 0,500 0500 ONCE XX ; Start 01/18/19 at 05:00; Stop 01/18/19 at 05:01 EDELMIRA WILSON Jan 17, 2019 17:47
[2019-01-17] MEDS ORDERED: LACTULOSE 30ML CUP PO PRN (18:30)
[2019-01-17] MEDS: EPOETIN ALFA-EPBX (ESRD) 4,000 UNIT/ML VIAL SC SCH (20:38)
[2019-01-17] MEDS: ATORVASTATIN 40 MG TAB PO SCH (20:42)
[2019-01-17] MEDS: DOCUSATE SODIUM 10 MG/ML (10ML CUP) NGT SCH (20:42)
[2019-01-17] MEDS: COLLAGENASE 5 GM (UD JAR) TOP SCH (20:42)
[2019-01-18] VITALS (108 sets, daily range): BP systolic 64–167; BP diastolic 24–53; PULSE 73–85; RESP 16–24
[2019-01-18] MEDS: PROPOFOL 100 ML IV SCH ×2 (00:27→23:00)
[2019-01-18] MEDS: INSULIN ASPART [NOVOLOG] 3 ML PEN SC SCH ×6 (00:33→20:53)
[2019-01-18] MEDS: FENTAnyl (DRIP) 1000 mcg/100mL 100 ML IV SCH ×2 (00:34→21:11)
[2019-01-18] MEDS: IPRATROPIUM (HFA) 12.9 GM INHALER INH SCH ×4 (01:42→19:43)
[2019-01-18] MEDS: ALBUTEROL HFA 8 GM INHALER INH SCH ×4 (01:42→19:43)
[2019-01-18] MEDS: ACETYLCYSTEINE 20% 4 ML VIAL NEB SCH (01:43)
[2019-01-18] MEDS: VASOPRESSIN 60 UNIT in DEXTROSE 5% 57 ML IV SCH ×2 (02:30→05:05)
[2019-01-18] MEDS: NORepinephrine 8MG/250 ML (PMX 250 ML IV SCH ×3 (04:05→21:50)
[2019-01-18] MEDS: MEROPENEM 500MG/50 ML (PMX) 50 ML IVPB SCH ×2 (04:57→17:59)
[2019-01-18] MEDS: FAMOTIDINE 20 MG INJ IV SCH (05:05)
[2019-01-18] MEDS: HEPARIN 5,000 UNIT/1 ML VIAL SC SCH ×3 (05:10→21:01)
[2019-01-18] MEDS: FERROUS SULFATE (EC) 325 MG TAB PO SCH ×2 (08:17→20:52)
[2019-01-18] MEDS: ASPIRIN 81 MG TAB PO SCH (08:17)
[2019-01-18] MEDS: BALSAM PERU/CASTOR OIL 60 GM TUBE TOP SCH ×2 (08:17→20:54)
[2019-01-18] MEDS: DOCUSATE SODIUM 10 MG/ML (10ML CUP) NGT SCH ×2 (08:17→20:52)
[2019-01-18] MEDS: FOLIC ACID 1 MG TAB PO SCH (08:17)
[2019-01-18] MEDS: COLLAGENASE 5 GM (UD JAR) TOP SCH ×2 (08:17→20:53)
[2019-01-18] MEDS: ACETAMINOPHEN 325 MG TAB PO PRN (08:28)
--- NOTE | 2019-01-18 08:32 | CONS ---
Consult Date/Type/Reason Admit Date/Time January 13, 2019 at 00:07 Initial Consult Date 01/15/19 Type of Consult Pulmonary Date/Time of Note DATE: 01/18/19 TIME: 08:29 Subjective Continues mechanical ventilation. Continues vasopressor support. Neurologically unable to assess as patient is currently sedated. Objective Vital Signs Date Temp Pulse Resp B/P (MAP) Pulse Ox O2 O2 Flow FiO2 Time Delivery Rate 01/18/19 100.5 08:28 01/18/19 78 20 115/33 99 [place] 07:00 (60) l Ventilato r 01/18/19 40 05:51 01/14/19 15.0 20:00 Intake and Output 01/17/19 01/17/19 01/18/19 1515:00 23:00 07:00 IntakeIntake Total 569.76 ml 1005.27 ml 846.52 ml OutputOutput Total 0 ml 0 ml BalanceBalance 569.76 ml 1005.27 ml 846.52 ml Exam GENERAL: Elderly gentleman orally intubated on mechanical ventilation VITAL SIGNS: per chart NECK: Supple. No JVD or lymphadenopathy. CARDIAC EXAM: S1, S2. No added sounds or murmurs. CHEST: Diminished air entry bilaterally ABDOMEN: Soft, nontender. No guarding or rebound. EXTREMITIES: No cyanosis, clubbing or edema. NEUROLOGIC: Generalized weakness. No focal deficits. Vent Setting Ventilator Support Mode: AC Fraction of Inspired Oxygen pe: 40 Positive End Expiratory Pressu: 5.0 Results/Medications Result Diagram: 01/18/19 0500 01/18/19 0500 Results 24 hrs Laboratory Tests Test 01/17/19 12:41 01/17/19 13:06 01/17/19 18:33 01/17/19 20:45 Prothrombin Time 17.4 H Prothrombin Time Ratio 1.4 INR International 1.41 Normalized Ratio Total Bilirubin 7.3 H Direct Bilirubin 6.40 H Indirect Bilirubin 0.9 Aspartate Amino 109 H Transf (AST/SGOT) Alanine 46 Aminotransferase (ALT/SG PT) Alkaline Phosphatase 234 H Total Protein 5.8 L Albumin 2.6 L Bedside Glucose 112 143 136 Test 01/18/19 00:32 01/18/19 04:08 01/18/19 05:00 01/18/19 08:20 Bedside Glucose 160 157 179 White Blood Count 22.8 H Red Blood Count 2.93 L Hemoglobin 9.3 L Hematocrit 29.2 L Mean Corpuscular Volume 99.7 Mean Corpuscular 31.7 Hemoglobin Mean Corpuscular 31.8 L Hemoglobin Concent Red Cell Distribution 15.1 H Width Platelet Count 93 L Mean Platelet Volume 12.7 H Immature Granulocytes % 3.000 H Neutrophils % 81.4 H Lymphocytes % 8.2 L Monocytes % 3.4 Eosinophils % 2.8 Basophils % 1.2 Nucleated Red Blood 0.3 H Cells % Immature Granulocytes # 0.690 H Neutrophils # 18.6 H Lymphocytes # 1.9 Monocytes # 0.8 Eosinophils # 0.6 H Basophils # 0.3 H Nucleated Red Blood 0.1 H Cells # Sodium Level 138 Potassium Level 4.7 Chloride Level 103 Carbon Dioxide Level 23 Anion Gap 12 Blood Urea Nitrogen 33 H Creatinine 4.15 H Est Glomerular Filtrat Rate mL/min Glucose Level 152 Calcium Level 8.9 Ammonia 34 H Random Vancomycin Level 8.3 Medications Current Medications Vancomycin HCl (Vanco Iv Per Pharmacy) VANCOMYCIN PER PHARMACY PER PROTOCOL XX ; Start 01/13/19 at 02:00 IV Flush (NS 3 ml) 3 ml PER PROTOCOL IV ; Start 01/13/19 at 02:00 Acetaminophen (Tylenol Tab) 650 mg Q6H PRN PO .PAIN 1-3 OR TEMP Last administered on 01/18/19at 08:28; Admin Dose 650 MG; Start 01/13/19 at 02:00 Acetaminophen/ Hydrocodone Bitart ([place] (5/325)) 1 tab Q6H PRN PO .PAIN 4-6 Last administered on 01/15/19at 13:40; Admin Dose 1 TAB; Start 01/13/19 at 02:00 Docusate Sodium (Colace) 100 mg Q12H PRN PO .CONSTIPATION; Start 01/13/19 at 02:00 Bisacodyl (Dulcolax) 5 mg DAILY PRN PO .CONSTIPATION; Start 01/13/19 at 02:00 Heparin Sodium (Porcine) (Heparin (5000 Units/1ml)) 5,000 unit Q8 SC Last administered on 01/18/19 05:10; Admin Dose 5,000 UNIT; Start 01/13/19 at 06:00 Atorvastatin Calcium (Lipitor) 40 mg DAILY@21 PO Last administered on 01/17/19at 20:42; Admin Dose 40 MG; Start 01/13/19 at 21:00 Carvedilol (Coreg) 12.5 mg BID PO ; Start 01/13/19 at 09:00; Status Hold Ferrous Sulfate (Ferrous Sulfate (Ec)) 325 mg BID PO Last administered on 01/18/19at 08:17; Admin Dose 325 MG; Start 01/13/19 at 09:00 Folic Acid (Folic Acid) 1 mg DAILY PO Last administered on 01/18/19at 08:17; Admin Dose 1 MG; Start 01/13/19 at 09:00 Insulin Glargine (Lantus) 20 units QHS SC Last administered on 01/14/19at 22:04; Admin Dose 20 UNITS; Start 01/13/19 at 21:00; Status Hold Aspirin (Aspirin) 81 mg DAILY PO Last administered on 01/18/19at 08:17; Admin Dose 81 MG; Start 01/13/19 at 11:00 Miscellaneous Information 1 ea NOTE XX ; Start 01/13/19 at 15:30 Glucose (Glutose) 15 gm Q15M PRN PO DECREASED GLUCOSE; Start 01/13/19 at 15:30 Glucose (Glutose) 22.5 gm Q15M PRN PO DECREASED GLUCOSE; Start 01/13/19 at 15:30 Dextrose (D50w Syringe) 25 ml Q15M PRN IV DECREASED GLUCOSE; Start 01/13/19 at 15:30 Dextrose (D50w Syringe) 50 ml Q15M PRN IV DECREASED GLUCOSE; Start 01/13/19 at 15:30 Glucagon (Glucagen) 1 mg Q15M PRN IM DECREASED GLUCOSE; Start 01/13/19 at 15:30 Glucose (Glutose) 15 gm Q15M PRN BUCCAL DECREASED GLUCOSE; Start 01/13/19 at 15:30 Epoetin Cam-epbx (Retacrit (Esrd)) 4,000 unit TuThSa@1700 SC Last administered on 01/17/19at 20:38; Admin Dose 4,000 UNIT; Start 01/14/19 at 17:00 Levalbuterol (Xopenex Neb) 1.25 mg Q4H RESP THERAPY PRN HHN dyspnea; Start 01/14/19 at 19:00 Fentanyl 100 ml @ 5 mls/hr TITRATE IV Last administered on 01/18/19at 00:34; Admin Dose 5 MLS/HR; Start 01/15/19 at 17:30 Meropenem/Sodium Chloride 50 ml @ 100 mls/hr Q12H IVPB Last administered on 01/18/19 04:57; Admin Dose 100 MLS/HR; Start 01/15/19 at 17:30 Norepinephrine 250 ml @ 1.875 mls/ hr TITRATE IV Last administered on 01/18/19 04:05; Admin Dose 30 MLS/HR; Start 01/15/19 at 17:30 Insulin Aspart (Novolog Insulin Pen) NOVOLOG *MILD* ALGORITHM Q4 SC Last administered on 01/18/19 08:22; Admin Dose 1 UNIT; Start 01/15/19 at 17:55 Ipratropium [place] (Atrovent Hfa) 4 puff Q6H RESP THERAPY INH Last administered on 01/18/19 08:25; Admin Dose 4 PUFF; Start 01/15/19 at 20:00 Albuterol (Ventolin Hfa) 4 puff Q6H RESP THERAPY INH Last administered on 01/18/19 08:25; Admin Dose 4 PUFF; Start 01/15/19 at 20:00 Famotidine (Pepcid Iv) 20 mg Q24H IV Last administered on 01/18/19 05:05; Admin Dose 20 MG; Start 01/16/19 at 06:00 Propofol 100 ml @ 2.46 mls/hr Q12H IV Last administered on 01/18/19at 00:27; Admin Dose 9.84 MLS/HR; Start 01/15/19 at 23:00 Vasopressin 60 unit/Dextrose 60 ml @ 1.2 mls/hr Q12H IV Last administered on 01/18/19 05:05; Admin Dose 2.4 MLS/HR; Start 01/16/19 at 02:30 Phenylephrine HCl 250 ml @ 75 mls/hr TITRATE IV ; Start 01/16/19 at 10:30 Caspofungin 35 mg/ Sodium Chloride 250 ml @ 250 mls/hr Q24H IVPB Last administered on 01/17/19 15:20; Admin Dose 250 MLS/HR; Start 01/17/19 at 15:00 Metoclopramide HCl (Reglan) 5 mg Q6H PRN IV feeding residual Last administered on 01/17/19at 15:21; Admin Dose 5 MG; Start 01/17/19 at 03:30 Docusate Sodium (Colace Liquid Cup) 100 mg BID NGT Last administered on 01/18/19at 08:17; Admin Dose 100 MG; Start 01/17/19 at 21:00 Collagenase (Santyl) 1 applic BID TOP Last administered on 01/18/19at 08:17; Admin Dose 1 APPLIC; Start 01/17/19 at 21:00 Amiodarone HCl 900 mg/Dextrose 500 ml @ 0 mls/hr Q0M IV Last administered on 01/17/19at 11:32; Admin Dose 33.3 MLS/HR; Start 01/17/19 at 10:30 Lactulose (Enulose) 20 gm DAILY PRN PO CONSTIPATION; Start 01/17/19 at 18:30 Dexmedetomidine HCl 200 mcg/ Sodium Chloride 50 ml @ 4.1 mls/hr TITRATE IV ; Start 01/18/19 at 08:00 Assessment/Plan Hospital Course (Demo Recall) IMP: 1. Hypoxemic and hypercapnic respiratory failure, 2. Extensive CAP vs. HCAP 3. Persistent leukocytosis 4. AMS--likely toxic-metabolic encephalopathy 5. ESRD on HD 6. HTN 7. CAD 8. Septic shock secondary to above RECS: 1. Continue mechanical ventilation 2. IV fluids vasopressors excuse to get over chest 3. Continue antibiotics will send work-up for atypicals. 4. Continue tube feeding as tolerated 5. Hemodialysis as tolerated 6. Liver function testing and ultrasound noted. Critical care time 40 minutes Overall prognosis guarded We will check random cortisol. DARIA AGUIAR MD, [facility] Jan 18, 2019 08:32
[2019-01-18] MEDS: METOCLOPRAMIDE 10 MG INJ IV PRN (08:40)
--- NOTE | 2019-01-18 09:07 | PN ---
Date/Time of Note Date/Time of Note DATE: 01/18/19 TIME: 08:58 Assessment/Plan VTE Prophylaxis Risk score (from Ns)>0 risk: 9 SCD applied (from Nsg): Yes Pharmacological prophylaxis: heparin Lines/Catheters IV Catheter Type (from Nrsg): Central Line Central line still needed: Yes Urinary Cath still in place: No Assessment/Plan Hospital Course 1. Sepsis secondary to underlying healthcare associated pneumonia possibly from dialysis center - continue abx - ID following - f/u respiratory cultures 2. Healthcare associated pneumonia - continue abx - ID consult following 3. Hypoxic respiratory failure - multifactorial: pna, esrd - continue breathing tx - intubated now - vent weaning as tolerated - monitor CXR/ABG - continue HD - front end wheel loader operator following - consider bronchoscopy if not improving 4. NSTEMI type II secondary to demand - Echo with preserved EF - troponin marker downward trended - boiler house mechanic following 5 Coronary artery disease: History of CABG - statin/asa 6. End-stage renal disease - continue HD - f/u nephro recs - correct electrolytes as needed 7. Diabetes mellitus - A1c 4.7 - Continue insulin regimen 8. Hypertension - hypotensive - on vasopressors - titrate down 9. Lower back pain with left leg weakness: Possibly resulting in sciatica. - Continue PT once more stable 10. elevated LFT - monitor LFT - is upward trending - abd imaging 01.17.19: - Nodular liver surface, concerning for cirrhosis. Mild ascites. - Findings compatible with mild diffuse colitis, as above. - Cholelithiasis, without evidence for cholecystitis. - Mild fat-containing bilateral inguinal hernias, without incarceration. Nasogastric tube tip is in the stomach. - GI consult DISPO.PLAN: continue abx. consider bronchoscopy if not improved. GI consult following. titrate down pressors as BP tolerates. f/u AM labs. Will discuss with family regarding goals of care Discussed plan of care with Dr. Nieves Result Diagram: 01/18/19 0500 01/18/19 0500 Results 24hrs Laboratory Tests Test 01/17/19 12:41 01/17/19 13:06 01/17/19 18:33 01/17/19 20:45 Prothrombin Time 17.4 H Prothrombin Time Ratio 1.4 INR International 1.41 Normalized Ratio Total Bilirubin 7.3 H Direct Bilirubin 6.40 H Indirect Bilirubin 0.9 Aspartate Amino 109 H Transf (AST/SGOT) Alanine 46 Aminotransferase (ALT/SG PT) Alkaline Phosphatase 234 H Total Protein 5.8 L Albumin 2.6 L Bedside Glucose 112 143 136 Test 01/18/19 00:32 01/18/19 04:08 01/18/19 05:00 01/18/19 08:20 Bedside Glucose 160 157 179 White Blood Count 22.8 H Red Blood Count 2.93 L Hemoglobin 9.3 L Hematocrit 29.2 L Mean Corpuscular Volume 99.7 Mean Corpuscular 31.7 Hemoglobin Mean Corpuscular 31.8 L Hemoglobin Concent Red Cell Distribution 15.1 H Width Platelet Count 93 L Mean Platelet Volume 12.7 H Immature Granulocytes % 3.000 H Neutrophils % 81.4 H Lymphocytes % 8.2 L Monocytes % 3.4 Eosinophils % 2.8 Basophils % 1.2 Nucleated Red Blood 0.3 H Cells % Immature Granulocytes # 0.690 H Neutrophils # 18.6 H Lymphocytes # 1.9 Monocytes # 0.8 Eosinophils # 0.6 H Basophils # 0.3 H Nucleated Red Blood 0.1 H Cells # Sodium Level 138 Potassium Level 4.7 Chloride Level 103 Carbon Dioxide Level 23 Anion Gap 12 Blood Urea Nitrogen 33 H Creatinine 4.15 H Est Glomerular Filtrat Rate mL/min Glucose Level 152 Calcium Level 8.9 Ammonia 34 H Random Vancomycin Level 8.3 Subjective 24 Hr Interval Summary Free Text/Dictation remains on pressors during visit. intubated and sedated. Exam/Review of Systems Exam Vitals Vital Signs Date Temp Pulse Resp B/P (MAP) Pulse Ox O2 O2 Flow FiO2 Time Delivery Rate 01/18/19 100.5 08:28 01/18/19 78 20 115/33 99 [place] 07:00 (60) l Ventilato r 01/18/19 40 05:51 01/14/19 15.0 20:00 Intake and Output 01/17/19 01/17/19 01/18/19 1515:00 23:00 07:00 IntakeIntake Total 569.76 ml 1005.27 ml 846.52 ml OutputOutput Total 0 ml 0 ml BalanceBalance 569.76 ml 1005.27 ml 846.52 ml Constitutional: No alert, No oriented (intubated and sedated ) Eyes: icteric Respiratory: diminished breath sounds (on mech vent ), other (regular rate ) Gastrointestinal: soft Genitourinary - Male: other (juarez catheter in place ) Neurological: No 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, No nl mental status (intubated/sedated ) Skin: other (decubitus ulcer sacral area ) Results Results 24hrs Laboratory Tests Test 01/17/19 12:41 01/17/19 13:06 01/17/19 18:33 01/17/19 20:45 Prothrombin Time 17.4 H Prothrombin Time Ratio 1.4 INR International 1.41 Normalized Ratio Total Bilirubin 7.3 H Direct Bilirubin 6.40 H Indirect Bilirubin 0.9 Aspartate Amino 109 H Transf (AST/SGOT) Alanine 46 Aminotransferase (ALT/SG PT) Alkaline Phosphatase 234 H Total Protein 5.8 L Albumin 2.6 L Bedside Glucose 112 143 136 Test 01/18/19 00:32 01/18/19 04:08 01/18/19 05:00 01/18/19 08:20 Bedside Glucose 160 157 179 White Blood Count 22.8 H Red Blood Count 2.93 L Hemoglobin 9.3 L Hematocrit 29.2 L Mean Corpuscular Volume 99.7 Mean Corpuscular 31.7 Hemoglobin Mean Corpuscular 31.8 L Hemoglobin Concent Red Cell Distribution 15.1 H Width Platelet Count 93 L Mean Platelet Volume 12.7 H Immature Granulocytes % 3.000 H Neutrophils % 81.4 H Lymphocytes % 8.2 L Monocytes % 3.4 Eosinophils % 2.8 Basophils % 1.2 Nucleated Red Blood 0.3 H Cells % Immature Granulocytes # 0.690 H Neutrophils # 18.6 H Lymphocytes # 1.9 Monocytes # 0.8 Eosinophils # 0.6 H Basophils # 0.3 H Nucleated Red Blood 0.1 H Cells # Sodium Level 138 Potassium Level 4.7 Chloride Level 103 Carbon Dioxide Level 23 Anion Gap 12 Blood Urea Nitrogen 33 H Creatinine 4.15 H Est Glomerular Filtrat Rate mL/min Glucose Level 152 Calcium Level 8.9 Ammonia 34 H Random Vancomycin Level 8.3 Medications Medication Current Medications Vancomycin HCl (Vanco Iv Per Pharmacy) VANCOMYCIN PER PHARMACY PER PROTOCOL XX ; Start 01/13/19 at 02:00 IV Flush (NS 3 ml) 3 ml PER PROTOCOL IV ; Start 01/13/19 at 02:00 Acetaminophen (Tylenol Tab) 650 mg Q6H PRN PO .PAIN 1-3 OR TEMP Last administered on 01/18/19 08:28; Admin Dose 650 MG; Start 01/13/19 at 02:00 Acetaminophen/ Hydrocodone Bitart ([place] (5/325)) 1 tab Q6H PRN PO .PAIN 4-6 Last administered on 01/15/19 13:40; Admin Dose 1 TAB; Start 01/13/19 at 02:00 Docusate Sodium (Colace) 100 mg Q12H PRN PO .CONSTIPATION; Start 01/13/19 at 02:00 Bisacodyl (Dulcolax) 5 mg DAILY PRN PO .CONSTIPATION; Start 01/13/19 at 02:00 Heparin Sodium (Porcine) (Heparin (5000 Units/1ml)) 5,000 unit Q8 SC Last ad ministered on 01/18/19 05:10; Admin Dose 5,000 UNIT; Start 01/13/19 at 06:00 Atorvastatin Calcium (Lipitor) 40 mg DAILY@21 PO Last administered on 01/17/19 20:42; Admin Dose 40 MG; Start 01/13/19 at 21:00 Carvedilol (Coreg) 12.5 mg BID PO ; Start 01/13/19 at 09:00; Status Hold Ferrous Sulfate (Ferrous Sulfate (Ec)) 325 mg BID PO Last administered on 01/18/19 08:17; Admin Dose 325 MG; Start 01/13/19 at 09:00 Folic Acid (Folic Acid) 1 mg DAILY PO Last administered on 01/18/19 08:17; Admin Dose 1 MG; Start 01/13/19 at 09:00 Insulin Glargine (Lantus) 20 units QHS SC Last administered on 01/14/19 22:04; Admin Dose 20 UNITS; Start 01/13/19 at 21:00; Status Hold Aspirin (Aspirin) 81 mg DAILY PO Last administered on 01/18/19 08:17; Admin Dose 81 MG; Start 01/13/19 at 11:00 Miscellaneous Information 1 ea NOTE XX ; Start 01/13/19 at 15:30 Glucose (Glutose) 15 gm Q15M PRN PO DECREASED GLUCOSE; Start 01/13/19 at 15:30 Glucose (Glutose) 22.5 gm Q15M PRN PO DECREASED GLUCOSE; Start 01/13/19 at 15:30 Dextrose (D50w Syringe) 25 ml Q15M PRN IV DECREASED GLUCOSE; Start 01/13/19 at 15:30 Dextrose (D50w Syringe) 50 ml Q15M PRN IV DECREASED GLUCOSE; Start 01/13/19 at 15:30 Glucagon (Glucagen) 1 mg Q15M PRN IM DECREASED GLUCOSE; Start 01/13/19 at 15:30 Glucose (Glutose) 15 gm Q15M PRN BUCCAL DECREASED GLUCOSE; Start 01/13/19 at 15:30 Epoetin Cam-epbx (Retacrit (Esrd)) 4,000 unit TuThSa@1700 SC Last administered on 01/17/19at 20:38; Admin Dose 4,000 UNIT; Start 01/14/19 at 17:00 Levalbuterol (Xopenex Neb) 1.25 mg Q4H RESP THERAPY PRN HHN dyspnea; Start 01/14/19 at 19:00 Fentanyl 100 ml @ 5 mls/hr TITRATE IV Last administered on 01/18/19at 00:34; Admin Dose 5 MLS/HR; Start 01/15/19 at 17:30 Meropenem/Sodium Chloride 50 ml @ 100 mls/hr Q12H IVPB Last administered on 01/18/19 04:57; Admin Dose 100 MLS/HR; Start 01/15/19 at 17:30 Norepinephrine 250 ml @ 1.875 mls/ hr TITRATE IV Last administered on 01/18/19 04:05; Admin Dose 30 MLS/HR; Start 01/15/19 at 17:30 Insulin Aspart (Novolog Insulin Pen) NOVOLOG *MILD* ALGORITHM Q4 SC Last administered on 01/18/19at 08:22; Admin Dose 1 UNIT; Start 01/15/19 at 17:55 Ipratropium [place] (Atrovent Hfa) 4 puff Q6H RESP THERAPY INH Last adm inistered on 01/18/19 08:25; Admin Dose 4 PUFF; Start 01/15/19 at 20:00 Albuterol (Ventolin Hfa) 4 puff Q6H RESP THERAPY INH Last administered on 01/18/19 08:25; Admin Dose 4 PUFF; Start 01/15/19 at 20:00 Famotidine (Pepcid Iv) 20 mg Q24H IV Last administered on 01/18/19 05:05; Admin Dose 20 MG; Start 01/16/19 at 06:00 Propofol 100 ml @ 2.46 mls/hr Q12H IV Last administered on 01/18/19 00:27; Ad min Dose 9.84 MLS/HR; Start 01/15/19 at 23:00 Vasopressin 60 unit/Dextrose 60 ml @ 1.2 mls/hr Q12H IV Last administered on 01/18/19 05:05; Admin Dose 2.4 MLS/HR; Start 01/16/19 at 02:30 Phenylephrine HCl 250 ml @ 75 mls/hr TITRATE IV ; Start 01/16/19 at 10:30 Caspofungin 35 mg/ Sodium Chloride 250 ml @ 250 mls/hr Q24H IVPB Last administered on 01/17/19 15:20; Admin Dose 250 MLS/HR; Start 01/17/19 at 15:00 Metoclopramide HCl (Reglan) 5 mg Q6H PRN IV feeding residual Last administered on 01/18/19 08:40; Admin Dose 5 MG; Start 01/17/19 at 03:30 Docusate Sodium (Colace Liquid Cup) 100 mg BID NGT Last administered on 01/18/19 08:17; Admin Dose 100 MG; Start 01/17/19 at 21:00 Collagenase (Santyl) 1 applic BID TOP Last administered on 01/18/19 08:17; Admin Dose 1 APPLIC; Start 01/17/19 at 21:00 Amiodarone HCl 900 mg/Dextrose 500 ml @ 0 mls/hr Q0M IV Last administered on 01/17/19 11:32; Admin Dose 33.3 MLS/HR; Start 01/17/19 at 10:30 Lactulose (Enulose) 20 gm DAILY PRN PO CONSTIPATION; Start 01/17/19 at 18:30 Dexmedetomidine HCl 200 mcg/ Sodium Chloride 50 ml @ 4.1 mls/hr TITRATE IV ; Start 01/18/19 at 08:00 SULEIMAN BOYD NP Jan 18, 2019 09:07
[2019-01-18] MEDS: DEXMEDETOMIDINE HCL 200 MCG in SOD CHLORIDE 0.9% 48 ML IV SCH ×2 (10:04→18:02)
[2019-01-18] MEDS ORDERED: ALBUMIN HUMAN 25% 100 ML ONE (11:05)
[2019-01-18] MEDS: ALBUMIN HUMAN 25% 100 ML IV PRN (11:21)
--- NOTE | 2019-01-18 12:42 | CONS ---
Assessment/Plan Assessment/Plan Assessment/Plan (Daily) 1 End-stage renal disease on hemodialysis. hemodialysis Wednesday, and Wednesday via left arm AV fistula 2. Septic shock , likely secondary to pneumonia/ cholecystitis. with elevated bilirubin , abstain positive for yeast 3. Elevated trop 4. Hypokalemia, resolved. 5. Leukocytosis. 6. Shortness of breath, cough, weakness, leukocytosis of 26.8, likely secondary to pneumonia. with hypoxic and hypercapnic resp failure 7. Hyperbilirubinemia, abnormal liver function tests. 8. respiratory failure, likely secondary to pneumonia. 9. Hypertension, currently hypotensive 10. Dyslipidemia. 11. Diabetes. 12. Anemia chronic disease 13. encephalopathy, ALOC 14 Respiratory failure s/p intubation 15 New onset AFIB 16 Abnormal LFT with elevated Bili/direct/alk phos and elevation of tr ansaminases ? r/o obstruction Assessment/Plan (Daily) -on vent -Since we do not have the capability of CRRT here, trying to do slow hemodialysis today - cw pressor support, still on 2 pressors -remains on sedation ? weaning -avoid nephrotoxic drugs -c/w Epogen after HD -cw vanco/meropenam/caspo per ID Consultation Date/Type/Reason Admit Date/Time January 13, 2019 at 00:07 Initial Consult Date 01/15/19 Date/Time of Note DATE: 01/18/19 TIME: 12:40 24 HR Interval Summary Free Text/Dictation Hemodialysis is in progress.[id number]>90 Patient is on sedation Still on 2 pressors with epinephrine and levo fed up to 18 Exam/Review of Systems Exam Vitals Vital Signs Date Temp Pulse Resp B/P (MAP) Pulse Ox O2 O2 Flow FiO2 Time Delivery Rate 01/18/19 79 12:15 01/18/19 18 108/38 100 Mechanical 11:15 (61) Ventilator 01/18/19 99.7 10:00 01/18/19 40 05:51 01/14/19 15.0 20:00 Intake and Output 01/17/19 01/17/19 01/18/19 1515:00 23:00 07:00 IntakeIntake Total 569.76 ml 1005.27 ml 846.52 ml OutputOutput Total 0 ml 0 ml BalanceBalance 569.76 ml 1005.27 ml 846.52 ml Exam intubated , left arm AV fistula Head: normocephalic, scleral icterus++ Neck: supple Respiratory: diminished breath sounds Cardiovascular: regular rate and rhythm Gastrointestinal: soft, nl liver, spleen, non-tender, ascites, bowel sounds, distended, firm, hepatomegaly, mass, rebound or guarding, splenomegaly, surgical scars, tender, other (pos. Richter sign) Skin: other (pale) edema + Results Result Diagram: 01/18/19 0500 01/18/19 0500 Results 24hrs Laboratory Tests Test 01/17/19 12:41 01/17/19 13:06 01/17/19 18:33 01/17/19 20:45 Prothrombin Time 17.4 H Prothrombin Time Ratio 1.4 INR International 1.41 Normalized Ratio Total Bilirubin 7.3 H Direct Bilirubin 6.40 H Indirect Bilirubin 0.9 Aspartate Amino 109 H Transf (AST/SGOT) Alanine 46 Aminotransferase (ALT/SG PT) Alkaline Phosphatase 234 H Total Protein 5.8 L Albumin 2.6 L Bedside Glucose 112 143 136 Test 01/18/19 00:32 01/18/19 04:08 01/18/19 05:00 01/18/19 08:20 Bedside Glucose 160 157 179 White Blood Count 22.8 H Red Blood Count 2.93 L Hemoglobin 9.3 L Hematocrit 29.2 L Mean Corpuscular Volume 99.7 Mean Corpuscular 31.7 Hemoglobin Mean Corpuscular 31.8 L Hemoglobin Concent Red Cell Distribution 15.1 H Width Platelet Count 93 L Mean Platelet Volume 12.7 H Immature Granulocytes % 3.000 H Neutrophils % 81.4 H Lymphocytes % 8.2 L Monocytes % 3.4 Eosinophils % 2.8 Basophils % 1.2 Nucleated Red Blood 0.3 H Cells % Immature Granulocytes # 0.690 H Neutrophils # 18.6 H Lymphocytes # 1.9 Monocytes # 0.8 Eosinophils # 0.6 H Basophils # 0.3 H Nucleated Red Blood 0.1 H Cells # Sodium Level 138 Potassium Level 4.7 Chloride Level 103 Carbon Dioxide Level 23 Anion Gap 12 Blood Urea Nitrogen 33 H Creatinine 4.15 H Est Glomerular Filtrat Rate mL/min Glucose Level 152 Calcium Level 8.9 Ammonia 34 H Random Vancomycin Level 8.3 Medications Medication Current Medications Vancomycin HCl (Vanco Iv Per Pharmacy) VANCOMYCIN PER PHARMACY PER PROTOCOL XX ; Start 01/13/19 at 02:00 IV Flush (NS 3 ml) 3 ml PER PROTOCOL IV ; Start 01/13/19 at 02:00 Acetaminophen (Tylenol Tab) 650 mg Q6H PRN PO .PAIN 1-3 OR TEMP Last administered on 01/18/19 08:28; Admin Dose 650 MG; Start 01/13/19 at 02:00 Acetaminophen/ Hydrocodone Bitart ([place] (5/325)) 1 tab Q6H PRN PO .PAIN 4-6 Last administered on 01/15/19 13:40; Admin Dose 1 TAB; Start 01/13/19 at 02:00 Docusate Sodium (Colace) 100 mg Q12H PRN PO .CONSTIPATION; Start 01/13/19 at 02:00 Bisacodyl (Dulcolax) 5 mg DAILY PRN PO .CONSTIPATION; Start 01/13/19 at 02:00 Heparin Sodium (Porcine) (Heparin (5000 Units/1ml)) 5,000 unit Q8 SC Last administered on 01/18/19 05:10; Admin Dose 5,000 UNIT; Start 01/13/19 at 06:00 Atorvastatin Calcium (Lipitor) 40 mg DAILY@21 PO Last administered on 01/17/19 20:42; Admin Dose 40 MG; Start 01/13/19 at 21:00 Carvedilol (Coreg) 12.5 mg BID PO ; Start 01/13/19 at 09:00; Status Hold Ferrous Sulfate (Ferrous Sulfate (Ec)) 325 mg BID PO Last administered on 01/18/19 08:17; Admin Dose 325 MG; Start 01/13/19 at 09:00 Folic Acid (Folic Acid) 1 mg DAILY PO Last administered on 01/18/19 08:17; Admin Dose 1 MG; Start 01/13/19 at 09:00 Insulin Glargine (Lantus) 20 units QHS SC Last administered on 01/14/19 22:04; Admin Dose 20 UNITS; Start 01/13/19 at 21:00; Status Hold Aspirin (Aspirin) 81 mg DAILY PO Last administered on 01/18/19 08:17; Admin Dose 81 MG; Start 01/13/19 at 11:00 Miscellaneous Information 1 ea NOTE XX ; Start 01/13/19 at 15:30 Glucose (Glutose) 15 gm Q15M PRN PO DECREASED GLUCOSE; Start 01/13/19 at 15:30 Glucose (Glutose) 22.5 gm Q15M PRN PO DECREASED GLUCOSE; Start 01/13/19 at 15:30 Dextrose (D50w Syringe) 25 ml Q15M PRN IV DECREASED GLUCOSE; Start 01/13/19 at 15:30 Dextrose (D50w Syringe) 50 ml Q15M PRN IV DECREASED GLUCOSE; Start 01/13/19 at 15:30 Glucagon (Glucagen) 1 mg Q15M PRN IM DECREASED GLUCOSE; Start 01/13/19 at 15:30 Glucose (Glutose) 15 gm Q15M PRN BUCCAL DECREASED GLUCOSE; Start 01/13/19 at 15 :30 Epoetin Cam-epbx (Retacrit (Esrd)) 4,000 unit TuThSa@1700 SC Last administered on 01/17/19at 20:38; Admin Dose 4,000 UNIT; Start 01/14/19 at 17:00 Levalbuterol (Xopenex Neb) 1.25 mg Q4H RESP THERAPY PRN HHN dyspnea; Start 01/14/19 at 19:00 Fentanyl 100 ml @ 5 mls/hr TITRATE IV Last administered on 01/18/19at 00:34; Admin Dose 5 MLS/HR; Start 01/15/19 at 17:30 Meropenem/Sodium Chloride 50 ml @ 100 mls/hr Q12H IVPB Last administered on 01/18/19at 04:57; Admin Dose 100 MLS/HR; Start 01/15/19 at 17:30 Norepinephrine 250 ml @ 1.875 mls/ hr TITRATE IV Last administered on 01/18/19at 11:54; Admin Dose 31.875 MLS/HR; Start 01/15/19 at 17:30 Insulin Aspart (Novolog Insulin Pen) NOVOLOG *MILD* ALGORITHM Q4 SC Last administered on 01/18/19at 08:22; Admin Dose 1 UNIT; Start 01/15/19 at 17:55 Ipratropium [place] (Atrovent Hfa) 4 puff Q6H RESP THERAPY INH Last administered on 01/18/19at 08:25; Admin Dose 4 PUFF; Start 01/15/19 at 20:00 Albuterol (Ventolin Hfa) 4 puff Q6H RESP THERAPY INH Last administered on 01/18/19 08:25; Admin Dose 4 PUFF; Start 01/15/19 at 20:00 Famotidine (Pepcid Iv) 20 mg Q24H IV Last administered on 01/18/19 05:05; Admin Dose 20 MG; Start 01/16/19 at 06:00 Propofol 100 ml @ 2.46 mls/hr Q12H IV Last administered on 01/18/19 00:27; Admin Dose 9.84 MLS/HR; Start 01/15/19 at 23:00 Vasopressin 60 unit/Dextrose 60 ml @ 1.2 mls/hr Q12H IV Last administered on 01/18/19 05:05; Admin Dose 2.4 MLS/HR; Start 01/16/19 at 02:30 Phenylephrine HCl 250 ml @ 75 mls/hr TITRATE IV ; Start 01/16/19 at 10:30 Caspofungin 35 mg/ Sodium Chloride 250 ml @ 250 mls/hr Q24H IVPB Last adminis tered on 01/17/19 15:20; Admin Dose 250 MLS/HR; Start 01/17/19 at 15:00 Docusate Sodium (Colace Liquid Cup) 100 mg BID NGT Last administered on 01/18/19 08:17; Admin Dose 100 MG; Start 01/17/19 at 21:00 Collagenase (Santyl) 1 applic BID TOP Last administered on 01/18/19 08:17; Admin Dose 1 APPLIC; Start 01/17/19 at 21:00 Amiodarone HCl 900 mg/Dextrose 500 ml @ 0 mls/hr Q0M IV Last administered on 01/17/19 11:32; Admin Dose 33.3 MLS/HR; Start 01/17/19 at 10:30 Lactulose (Enulose) 20 gm DAILY PRN PO CONSTIPATION; Start 01/17/19 at 18:30 Dexmedetomidine HCl 200 mcg/ Sodium Chloride 50 ml @ 4.1 mls/hr TITRATE IV Last administered on 01/18/19 10:04; Admin Dose 4.1 MLS/HR; Start 01/18/19 at 08:00 Metoclopramide HCl (Reglan) 5 mg Q6H IV ; Start 01/18/19 at 14:00 Albumin Human 100 ml @ 100 mls/hr DURING DIALYSIS PRN IV BLOOD PRESSURE SUPPORT Last administered on 01/18/19at 11:21; Admin Dose 100 MLS/HR; Start 01/18/19 at 11:30 JUAN NOLAND MD Jan 18, 2019 12:42
--- NOTE | 2019-01-18 12:59 | PN ---
Date/Time of Note Date/Time of Note DATE: 01/18/19 TIME: 12:47 Assessment/Plan VTE Prophylaxis Risk score (from Ns)>0 risk: 9 SCD applied (from Ns): Yes Pharmacological prophylaxis: other (scds) Lines/Catheters IV Catheter Type (from Nrsg): Central Line Central line still needed: Yes (meds) Urinary Cath still in place: No Assessment/Plan Hospital Course Assessment: Elevated LFTs with direct hyperbilirubinemia -Hepatitis serologies negative -No biliary dilatation, on CT scan Imaging concerning for cirrhosis -Mild ascites -Thrombocytopenia -Coagulopathy Normocytic anemia Mild diffuse colitis on imaging - no diarrhea Leukocytosis Healthcare associated pneumonia Hypoxic respiratory failure -intubated on MV NSTEMI, type II Coronary artery disease -History of CABG ESRD DM HTN Plan: Patient with high residuals this am- Reglan has been change to OTC SAÚL, AMA, ASMA- pending Ammonia- 34 No BM since admission- will change Lactulose to daily vs PRN MRCP when patient stable to rule out common bile duct obstruction versus hepatocellular disease Trend LFTs Supportive care mild diffuse colitis on imaging- no bm since admission noted- Ct notes no bowel obstruction Patient seen in collaboration with Dr. Resendez Subjective: Course reviewed with nursing staff Patient interviewed and examined All labs, imaging and other results reviewed Patient remains intubate din ICU- currently receiving HD. Large residuals this am 550 ml- TF on hold- Reglan has been changed to OTC Maintain close observation PHYSICAL EXAMINATION: GENERAL: Intubated, sedation, on pressors, jaundice, OG in place. SKIN: No lesions, CHEST: Inspection within normal limits. CARDIOVASCULAR: Heart: Regular rate and rhythm RESPIRATORY: Lungs clear to auscultation and percussion, no wheezing, no rubs GASTROINTESTINAL AND LIVER: Abdomen: Soft, non tenderness, non-distended, no hernias, no masses, no organomegaly, no ascites, no guarding, no rebound tenderness, hypoactive bowel sounds. Rectal: Deferred. EXTREMITIES: No cyanosis, clubbing or edema. Result Diagram: 01/18/19 0500 01/18/19 0500 Results 24hrs Laboratory Tests Test 01/17/19 13:06 01/17/19 18:33 01/17/19 20:45 01/18/19 00:32 Bedside Glucose 112 143 136 160 Test 01/18/19 04:08 01/18/19 05:00 01/18/19 08:20 Bedside Glucose 157 179 White Blood Count 22.8 H Red Blood Count 2.93 L Hemoglobin 9.3 L Hematocrit 29.2 L Mean Corpuscular Volume 99.7 Mean Corpuscular 31.7 Hemoglobin Mean Corpuscular 31.8 L Hemoglobin Concent Red Cell Distribution 15.1 H Width Platelet Count 93 L Mean Platelet Volume 12.7 H Immature Granulocytes % 3.000 H Neutrophils % 81.4 H Lymphocytes % 8.2 L Monocytes % 3.4 Eosinophils % 2.8 Basophils % 1.2 Nucleated Red Blood 0.3 H Cells % Immature Granulocytes # 0.690 H Neutrophils # 18.6 H Lymphocytes # 1.9 Monocytes # 0.8 Eosinophils # 0.6 H Basophils # 0.3 H Nucleated Red Blood 0.1 H Cells # Sodium Level 138 Potassium Level 4.7 Chloride Level 103 Carbon Dioxide Level 23 Anion Gap 12 Blood Urea Nitrogen 33 H Creatinine 4.15 H Est Glomerular Filtrat Rate mL/min Glucose Level 152 Calcium Level 8.9 Ammonia 34 H Random Vancomycin Level 8.3 Exam/Review of Systems Exam Vitals Vital Signs Date Temp Pulse Resp B/P (MAP) Pulse Ox O2 O2 Flow FiO2 Time Delivery Rate 01/18/19 79 12:15 01/18/19 18 108/38 100 Mechanical 11:15 (61) Ventilator 01/18/19 99.7 10:00 01/18/19 40 05:51 01/14/19 15.0 20:00 Intake and Output 01/17/19 01/17/19 01/18/19 1515:00 23:00 07:00 IntakeIntake Total 569.76 ml 1005.27 ml 846.52 ml OutputOutput Total 0 ml 0 ml BalanceBalance 569.76 ml 1005.27 ml 846.52 ml Results Results 24hrs Laboratory Tests Test 01/17/19 13:06 01/17/19 18:33 01/17/19 20:45 01/18/19 00:32 Bedside Glucose 112 143 136 160 Test 01/18/19 04:08 01/18/19 05:00 01/18/19 08:20 Bedside Glucose 157 179 White Blood Count 22.8 H Red Blood Count 2.93 L Hemoglobin 9.3 L Hematocrit 29.2 L Mean Corpuscular Volume 99.7 Mean Corpuscular 31.7 Hemoglobin Mean Corpuscular 31.8 L Hemoglobin Concent Red Cell Distribution 15.1 H Width Platelet Count 93 L Mean Platelet Volume 12.7 H Immature Granulocytes % 3.000 H Neutrophils % 81.4 H Lymphocytes % 8.2 L Monocytes % 3.4 Eosinophils % 2.8 Basophils % 1.2 Nucleated Red Blood 0.3 H Cells % Immature Granulocytes # 0.690 H Neutrophils # 18.6 H Lymphocytes # 1.9 Monocytes # 0.8 Eosinophils # 0.6 H Basophils # 0.3 H Nucleated Red Blood 0.1 H Cells # Sodium Level 138 Potassium Level 4.7 Chloride Level 103 Carbon Dioxide Level 23 Anion Gap 12 Blood Urea Nitrogen 33 H Creatinine 4.15 H Est Glomerular Filtrat Rate mL/min Glucose Level 152 Calcium Level 8.9 Ammonia 34 H Random Vancomycin Level 8.3 Medications Medication Current Medications Vancomycin HCl (Vanco Iv Per Pharmacy) VANCOMYCIN PER PHARMACY PER PROTOCOL XX ; Start 01/13/19 at 02:00 IV Flush (NS 3 ml) 3 ml PER PROTOCOL IV ; Start 01/13/19 at 02:00 Acetaminophen (Tylenol Tab) 650 mg Q6H PRN PO .PAIN 1-3 OR TEMP Last administered on 01/18/19at 08:28; Admin Dose 650 MG; Start 01/13/19 at 02:00 Acetaminophen/ Hydrocodone Bitart ([place] (5/325)) 1 tab Q6H PRN PO .PAIN 4-6 Last administered on 01/15/19at 13:40; Admin Dose 1 TAB; Start 01/13/19 at 02:00 Docusate Sodium (Colace) 100 mg Q12H PRN PO .CONSTIPATION; Start 01/13/19 at 02:00 Bisacodyl (Dulcolax) 5 mg DAILY PRN PO .CONSTIPATION; Start 01/13/19 at 02:00 Heparin Sodium (Porcine) (Heparin (5000 Units/1ml)) 5,000 unit Q8 SC Last administered on 01/18/19at 05:10; Admin Dose 5,000 UNIT; Start 01/13/19 at 06:00 Atorvastatin Calcium (Lipitor) 40 mg DAILY@21 PO Last administered on 01/17/19at 20:42; Admin Dose 40 MG; Start 01/13/19 at 21:00 Carvedilol (Coreg) 12.5 mg BID PO ; Start 01/13/19 at 09:00; Status Hold Ferrous Sulfate (Ferrous Sulfate (Ec)) 325 mg BID PO Last administered on 01/18/19at 08:17; Admin Dose 325 MG; Start 01/13/19 at 09:00 Folic Acid (Folic Acid) 1 mg DAILY PO Last administered on 01/18/19at 08:17; A dmin Dose 1 MG; Start 01/13/19 at 09:00 Insulin Glargine (Lantus) 20 units QHS SC Last administered on 01/14/19at 22:04; Admin Dose 20 UNITS; Start 01/13/19 at 21:00; Status Hold Aspirin (Aspirin) 81 mg DAILY PO Last administered on 01/18/19at 08:17; Admin Dose 81 MG; Start 01/13/19 at 11:00 Miscellaneous Information 1 ea NOTE XX ; Start 01/13/19 at 15:30 Glucose (Glutose) 15 gm Q15M PRN PO DECREASED GLUCOSE; Start 01/13/19 at 15:30 Glucose (Glutose) 22.5 gm Q15M PRN PO DECREASED GLUCOSE; Start 01/13/19 at 15:30 Dextrose (D50w Syringe) 25 ml Q15M PRN IV DECREASED GLUCOSE; Start 01/13/19 at 15:30 Dextrose (D50w Syringe) 50 ml Q15M PRN IV DECREASED GLUCOSE; Start 01/13/19 at 15:30 Glucagon (Glucagen) 1 mg Q15M PRN IM DECREASED GLUCOSE; Start 01/13/19 at 15:30 Glucose (Glutose) 15 gm Q15M PRN BUCCAL DECREASED GLUCOSE; Start 01/13/19 at 15:30 Epoetin Cam-epbx (Retacrit (Esrd)) 4,000 unit TuThSa@1700 SC Last administered on 01/17/19at 20:38; Admin Dose 4,000 UNIT; Start 01/14/19 at 17:00 Levalbuterol (Xopenex Neb) 1.25 mg Q4H RESP THERAPY PRN HHN dyspnea; Start 01/14/19 at 19:00 Fentanyl 100 ml @ 5 mls/hr TITRATE IV Last administered on 01/18/19at 00:34; Admin Dose 5 MLS/HR; Start 01/15/19 at 17:30 Meropenem/Sodium Chloride 50 ml @ 100 mls/hr Q12H IVPB Last administered on 01/18/19 04:57; Admin Dose 100 MLS/HR; Start 01/15/19 at 17:30 Norepinephrine 250 ml @ 1.875 mls/ hr TITRATE IV Last administered on 01/18/19 11:54; Admin Dose 31.875 MLS/HR; Start 01/15/19 at 17:30 Insulin Aspart (Novolog Insulin Pen) NOVOLOG *MILD* ALGORITHM Q4 SC Last administered on 01/18/19 08:22; Admin Dose 1 UNIT; Start 01/15/19 at 17:55 Ipratropium [place] (Atrovent Hfa) 4 puff Q6H RESP THERAPY INH Last administered on 01/18/19 08:25; Admin Dose 4 PUFF; Start 01/15/19 at 20:00 Albuterol (Ventolin Hfa) 4 puff Q6H RESP THERAPY INH Last administered on 01/18/19 08:25; Admin Dose 4 PUFF; Start 01/15/19 at 20:00 Famotidine (Pepcid Iv) 20 mg Q24H IV Last administered on 01/18/19 05:05; Admin Dose 20 MG; Start 01/16/19 at 06:00 Propofol 100 ml @ 2.46 mls/hr Q12H IV Last administered on 01/18/19 00:27; Admin Dose 9.84 MLS/HR; Start 01/15/19 at 23:00 Vasopressin 60 unit/Dextrose 60 ml @ 1.2 mls/hr Q12H IV Last administered on 01/18/19 05:05; Admin Dose 2.4 MLS/HR; Start 01/16/19 at 02:30 Phenylephrine HCl 250 ml @ 75 mls/hr TITRATE IV ; Start 01/16/19 at 10:30 Caspofungin 35 mg/ Sodium Chloride 250 ml @ 250 mls/hr Q24H IVPB Last administered on 01/17/19 15:20; Admin Dose 250 MLS/HR; Start 01/17/19 at 15:00 Docusate Sodium (Colace Liquid Cup) 100 mg BID NGT Last administered on 08:17; Admin Dose 100 MG; Start 01/17/19 at 21:00 Collagenase (Santyl) 1 applic BID TOP Last administered on 01/18/19 08:17; Admin Dose 1 APPLIC; Start 01/17/19 at 21:00 Amiodarone HCl 900 mg/Dextrose 500 ml @ 0 mls/hr Q0M IV Last administered on 01/17/19 11:32; Admin Dose 33.3 MLS/HR; Start 01/17/19 at 10:30 Lactulose (Enulose) 20 gm DAILY PRN PO CONSTIPATION; Start 01/17/19 at 18:30 Dexmedetomidine HCl 200 mcg/ Sodium Chloride 50 ml @ 4.1 mls/hr TITRATE IV Last administered on 01/18/19 10:04; Admin Dose 4.1 MLS/HR; Start 01/18/19 at 08:00 Metoclopramide HCl (Reglan) 5 mg Q6H IV ; Start 01/18/19 at 14:00 Albumin Human 100 ml @ 100 mls/hr DURING DIALYSIS PRN IV BLOOD PRESSURE SUPPORT Last administered on 01/18/19 11:21; Admin Dose 100 MLS/HR; Start 01/18/19 at 11:30 EDELMIRA WILSON Jan 18, 2019 12:59
[2019-01-18] MEDS ORDERED: AMIODARONE 200 MG TAB PO ONE (13:08)
--- NOTE | 2019-01-18 13:10 | CONS ---
Assessment/Plan Assessment/Plan Hospital Course (Demo Recall) Shock, likely secondary to sepsis Vent dependent respiratory failure Severe hypotension on IV pressors Sepsis secondary to pneumonia New onset atrial fibrillation-currently sinus rhythm Preserved left ventricular ejection fraction Minimally elevated troponin CAD with history of CABG End-stage renal disease on hemodialysis Diabetes Hypertension Dyslipidemia Titrate IV pressors to maintain SBP greater than 90 and/or map above 60. Given medications being titrated, I did recommend titrating down levo fed initially given recent atrial fibrillation Patient currently sinus rhythm, will transition to p.o. amiodarone Vent management as per pulmonary Would hold all patient's antihypertensives Fluid management via hemodialysis as per nephrology Antibiotics as per infectious disease Continue aspirin and statin therapy if no contraindication Greater than 33 minutes of critical care time taken in the care of this patient Consultation Date/Type/Reason Admit Date/Time January 13, 2019 at 00:07 Initial Consult Date 01/15/19 Type of Consult Cardiology Date/Time of Note DATE: 01/18/19 TIME: 13:07 24 HR Interval Summary Free Text/Dictation Patient seen and examined. Undergoing hemodialysis currently Exam/Review of Systems Vital Signs Vitals Vital Signs Date Temp Pulse Resp B/P (MAP) Pulse Ox O2 O2 Flow FiO2 Time Delivery Rate 01/18/19 80 20 106/35 100 Mechanical 13:00 (58) Ventilator 01/18/19 99.7 12:00 01/18/19 40 08:00 01/14/19 15.0 20:00 Intake and Output 01/17/19 01/17/19 01/18/19 1515:00 23:00 07:00 IntakeIntake Total 569.76 ml 1005.27 ml 846.52 ml OutputOutput Total 0 ml 0 ml BalanceBalance 569.76 ml 1005.27 ml 846.52 ml Exam Exam Intubated and sedated, no apparent distress, undergoing hemodialysis Head: normocephalic ENMT: intubated Respiratory: other (Coarse breath sounds bilaterally, no wheezing) Cardiovascular: regular rate and rhythm, other (S1-S2 heard) Gastrointestinal: soft, bowel sounds, other (No grimacing with palpation) Extremities: edema Labs Result Diagram: 01/18/19 0500 01/18/19 0500 Results 24hrs Laboratory Tests Test 01/17/19 18:33 01/17/19 20:45 01/18/19 00:32 01/18/19 04:08 Bedside Glucose 143 136 160 157 Test 01/18/19 05:00 01/18/19 08:20 White Blood Count 22.8 H Red Blood Count 2.93 L Hemoglobin 9.3 L Hematocrit 29.2 L Mean Corpuscular Volume 99.7 Mean Corpuscular 31.7 Hemoglobin Mean Corpuscular 31.8 L Hemoglobin Concent Red Cell Distribution 15.1 H Width Platelet Count 93 L Mean Platelet Volume 12.7 H Immature Granulocytes % 3.000 H Neutrophils % 81.4 H Lymphocytes % 8.2 L Monocytes % 3.4 Eosinophils % 2.8 Basophils % 1.2 Nucleated Red Blood 0.3 H Cells % Immature Granulocytes # 0.690 H Neutrophils # 18.6 H Lymphocytes # 1.9 Monocytes # 0.8 Eosinophils # 0.6 H Basophils # 0.3 H Nucleated Red Blood 0.1 H Cells # Sodium Level 138 Potassium Level 4.7 Chloride Level 103 Carbon Dioxide Level 23 Anion Gap 12 Blood Urea Nitrogen 33 H Creatinine 4.15 H Est Glomerular Filtrat Rate mL/min Glucose Level 152 Calcium Level 8.9 Ammonia 34 H Random Vancomycin Level 8.3 Bedside Glucose 179 Medications Medications Current Medications Vancomycin HCl (Vanco Iv Per Pharmacy) VANCOMYCIN PER PHARMACY PER PROTOCOL XX ; Start 01/13/19 at 02:00 IV Flush (NS 3 ml) 3 ml PER PROTOCOL IV ; Start 01/13/19 at 02:00 Acetaminophen (Tylenol Tab) 650 mg Q6H PRN PO .PAIN 1-3 OR TEMP Last administered on 01/18/19at 08:28; Admin Dose 650 MG; Start 01/13/19 at 02:00 Acetaminophen/ Hydrocodone Bitart ([place] (5/325)) 1 tab Q6H PRN PO .PAIN 4-6 Last administered on 01/15/19at 13:40; Admin Dose 1 TAB; Start 01/13/19 at 02:00 Docusate Sodium (Colace) 100 mg Q12H PRN PO .CONSTIPATION; Start 01/13/19 at 02:00 Bisacodyl (Dulcolax) 5 mg DAILY PRN PO .CONSTIPATION; Start 01/13/19 at 02:00 Heparin Sodium (Porcine) (Heparin (5000 Units/1ml)) 5,000 unit Q8 SC Last administered on 01/18/19at 05:10; Admin Dose 5,000 UNIT; Start 01/13/19 at 06:00 Atorvastatin Calcium (Lipitor) 40 mg DAILY@21 PO Last administered on 01/17/19at 20:42; Admin Dose 40 MG; Start 01/13/19 at 21:00 Carvedilol (Coreg) 12.5 mg BID PO ; Start 01/13/19 at 09:00; Status Hold Ferrous Sulfate (Ferrous Sulfate (Ec)) 325 mg BID PO Last administered on 01/18/19at 08:17; Admin Dose 325 MG; Start 01/13/19 at 09:00 Folic Acid (Folic Acid) 1 mg DAILY PO Last administered on 01/18/19at 08:17; Admin Dose 1 MG; Start 01/13/19 at 09:00 Insulin Glargine (Lantus) 20 units QHS SC Last administered on 01/14/19at 22:04; Admin Dose 20 UNITS; Start 01/13/19 at 21:00; Status Hold Aspirin (Aspirin) 81 mg DAILY PO Last administered on 01/18/19at 08:17; Admin Dose 81 MG; Start 01/13/19 at 11:00 Miscellaneous Information 1 ea NOTE XX ; Start 01/13/19 at 15:30 Glucose (Glutose) 15 gm Q15M PRN PO DECREASED GLUCOSE; Start 01/13/19 at 15:30 Glucose (Glutose) 22.5 gm Q15M PRN PO DECREASED GLUCOSE; Start 01/13/19 at 15:30 Dextrose (D50w Syringe) 25 ml Q15M PRN IV DECREASED GLUCOSE; Start 01/13/19 at 15:30 Dextrose (D50w Syringe) 50 ml Q15M PRN IV DECREASED GLUCOSE; Start 01/13/19 at 15:30 Glucagon (Glucagen) 1 mg Q15M PRN IM DECREASED GLUCOSE; Start 01/13/19 at 15:30 Glucose (Glutose) 15 gm Q15M PRN BUCCAL DECREASED GLUCOSE; Start 01/13/19 at 15:30 Epoetin Cam-epbx (Retacrit (Esrd)) 4,000 unit TuThSa@1700 SC Last administered on 01/17/19at 20:38; Admin Dose 4,000 UNIT; Start 01/14/19 at 17:00 Levalbuterol (Xopenex Neb) 1.25 mg Q4H RESP THERAPY PRN HHN dyspnea; Start 01/14/19 at 19:00 Fentanyl 100 ml @ 5 mls/hr TITRATE IV Last administered on 01/18/19 00:34; Admin Dose 5 MLS/HR; Start 01/15/19 at 17:30 Meropenem/Sodium Chloride 50 ml @ 100 mls/hr Q12H IVPB Last administered on 01/18/19 04:57; Admin Dose 100 MLS/HR; Start 01/15/19 at 17:30 Norepinephrine 250 ml @ 1.875 mls/ hr TITRATE IV Last administered on 01/18/19 11:54; Admin Dose 31.875 MLS/HR; Start 01/15/19 at 17:30 Insulin Aspart (Novolog Insulin Pen) NOVOLOG *MILD* ALGORITHM Q4 SC Last administered on 01/18/19 08:22; Admin Dose 1 UNIT; Start 01/15/19 at 17:55 Ipratropium [place] (Atrovent Hfa) 4 puff Q6H RESP THERAPY INH Last administered on 01/18/19 08:25; Admin Dose 4 PUFF; Start 01/15/19 at 20:00 Albuterol (Ventolin Hfa) 4 puff Q6H RESP THERAPY INH Last administered on 01/18/19 08:25; Admin Dose 4 PUFF; Start 01/15/19 at 20:00 Famotidine (Pepcid Iv) 20 mg Q24H IV Last administered on 01/18/19 05:05; Admin Dose 20 MG; Start 01/16/19 at 06:00 Propofol 100 ml @ 2.46 mls/hr Q12H IV Last administered on 01/18/19 00:27; Admin Dose 9.84 MLS/HR; Start 01/15/19 at 23:00 Vasopressin 60 unit/Dextrose 60 ml @ 1.2 mls/hr Q12H IV Last administered on 01/18/19 05:05; Admin Dose 2.4 MLS/HR; Start 01/16/19 at 02:30 Phenylephrine HCl 250 ml @ 75 mls/hr TITRATE IV ; Start 01/16/19 at 10:30 Caspofungin 35 mg/ Sodium Chloride 250 ml @ 250 mls/hr Q24H IVPB Last administered on 01/17/19 15:20; Admin Dose 250 MLS/HR; Start 01/17/19 at 15:00 Docusate Sodium (Colace Liquid Cup) 100 mg BID NGT Last administered on 01/18/19 08:17; Admin Dose 100 MG; Start 01/17/19 at 21:00 Collagenase (Santyl) 1 applic BID TOP Last administered on 01/18/19 08:17; Admin Dose 1 APPLIC; Start 01/17/19 at 21:00 Amiodarone HCl 900 mg/Dextrose 500 ml @ 0 mls/hr Q0M IV Last administered on 01/17/19 11:32; Admin Dose 33.3 MLS/HR; Start 01/17/19 at 10:30 Dexmedetomidine HCl 200 mcg/ Sodium Chloride 50 ml @ 4.1 mls/hr TITRATE IV Last administered on 01/18/19 10:04; Admin Dose 4.1 MLS/HR; Start 01/18/19 at 08:00 Metoclopramide HCl (Reglan) 5 mg Q6H IV ; Start 01/18/19 at 14:00 Albumin Human 100 ml @ 100 mls/hr DURING DIALYSIS PRN IV BLOOD PRESSURE SUPPORT Last administered on 01/18/19 11:21; Admin Dose 100 MLS/HR; Start 01/18/19 at 11:30 Lactulose (Enulose) 20 gm DAILY PO ; Start 01/19/19 at 09:00 Wilfred Decker DO Jan 18, 2019 13:10
--- NOTE | 2019-01-18 15:30 | CONS ---
Assessment/Plan Assessment/Plan Hospital Course (Demo Recall) Patient remains unchanged status post hemodialysis with low-grade fevers. T-max 100.5 T-current 99.7. WBC 22.8 platelets 93 neutrophils 81.4. Microbiology: Sputum culture growing yeast. CT abdomen pelvis without contrast revealed diffuse colitis. Cholelithiasis without evidence for cholecystitis. Nonspecific patchy bibasilar pulmonary consolidation. Please see full report in the chart Antimicrobials: Cancidas vancomycin, Merrem Indwelling's endotracheal tube, NG tube, right IJ triple-lumen catheter, left upper extremity AV fistula Antimicrobials: Vancomycin, meropenem, Zithromax Physical examination: Chronically ill-appearing elderly man who is intubated sedated in no distress. Head atraumatic normocephalic sclera nonicteric vehicle mucosa dry. Neck is supple chest rise symmetrical breath sounds diminished bases. Heart: S1-S2. Abdomen soft bowel sounds present. Extremities with bilateral edema. Assessment: 1. Severe sepsis with shock 2. Acute hypoxemic respiratory failure/CHF exacerbation 3. Healthcare associated pneumonia possibly aspirated 4. Colitis 5. End-stage renal disease, hemodialysis dependent 6. Coronary artery disease 7. Transaminitis with elevated total bilirubin Plan: Remains unchanged, add Flagyl, continue antibiotics Consultation Date/Type/Reason Admit Date/Time January 13, 2019 at 00:07 Initial Consult Date 01/15/19 Type of Consult id Date/Time of Note DATE: 01/18/19 TIME: 15:29 Exam/Review of Systems Exam Vitals Vital Signs Date Temp Pulse Resp B/P (MAP) Pulse Ox O2 O2 Flow FiO2 Time Delivery Rate 01/18/19 79 15:00 01/18/19 20 106/35 100 Mechanical 13:00 (58) Ventilator 01/18/19 99.7 12:00 01/18/19 40 08:00 01/14/19 15.0 20:00 Intake and Output 01/17/19 01/17/19 01/18/19 1515:00 23:00 07:00 IntakeIntake Total 569.76 ml 1005.27 ml 846.52 ml OutputOutput Total 0 ml 0 ml BalanceBalance 569.76 ml 1005.27 ml 846.52 ml Results Result Diagram: 01/18/19 0500 01/18/19 0500 Results 24hrs Laboratory Tests Test 01/17/19 18:33 01/17/19 20:45 01/18/19 00:32 01/18/19 04:08 Bedside Glucose 143 136 160 157 Test 01/18/19 05:00 01/18/19 08:20 01/18/19 14:04 White Blood Count 22.8 H Red Blood Count 2.93 L Hemoglobin 9.3 L Hematocrit 29.2 L Mean Corpuscular Volume 99.7 Mean Corpuscular 31.7 Hemoglobin Mean Corpuscular 31.8 L Hemoglobin Concent Red Cell Distribution 15.1 H Width Platelet Count 93 L Mean Platelet Volume 12.7 H Immature Granulocytes % 3.000 H Neutrophils % 81.4 H Lymphocytes % 8.2 L Monocytes % 3.4 Eosinophils % 2.8 Basophils % 1.2 Nucleated Red Blood 0.3 H Cells % Immature Granulocytes # 0.690 H Neutrophils # 18.6 H Lymphocytes # 1.9 Monocytes # 0.8 Eosinophils # 0.6 H Basophils # 0.3 H Nucleated Red Blood 0.1 H Cells # Sodium Level 138 Potassium Level 4.7 Chloride Level 103 Carbon Dioxide Level 23 Anion Gap 12 Blood Urea Nitrogen 33 H Creatinine 4.15 H Est Glomerular Filtrat Rate mL/min Glucose Level 152 Calcium Level 8.9 Ammonia 34 H Random Vancomycin Level 8.3 Bedside Glucose 179 161 Medications Medication Current Medications Vancomycin HCl (Vanco Iv Per Pharmacy) VANCOMYCIN PER PHARMACY PER PROTOCOL XX ; Start 01/13/19 at 02:00 IV Flush (NS 3 ml) 3 ml PER PROTOCOL IV ; Start 01/13/19 at 02:00 Acetaminophen (Tylenol Tab) 650 mg Q6H PRN PO .PAIN 1-3 OR TEMP Last administered on 01/18/19at 08:28; Admin Dose 650 MG; Start 01/13/19 at 02:00 Acetaminophen/ Hydrocodone Bitart ([place] (5/325)) 1 tab Q6H PRN PO .PAIN 4-6 Last administered on 01/15/19at 13:40; Admin Dose 1 TAB; Start 01/13/19 at 02:00 Docusate Sodium (Colace) 100 mg Q12H PRN PO .CONSTIPATION; Start 01/13/19 at 02:00 Bisacodyl (Dulcolax) 5 mg DAILY PRN PO .CONSTIPATION; Start 01/13/19 at 02:00 Heparin Sodium (Porcine) (Heparin (5000 Units/1ml)) 5,000 unit Q8 SC Last administered on 01/18/19 05:10; Admin Dose 5,000 UNIT; Start 01/13/19 at 06:00 Atorvastatin Calcium (Lipitor) 40 mg DAILY@21 PO Last administered on 01/17/19 20:42; Admin Dose 40 MG; Start 01/13/19 at 21:00 Carvedilol (Coreg) 12.5 mg BID PO ; Start 01/13/19 at 09:00; Status Hold Ferrous Sulfate (Ferrous Sulfate (Ec)) 325 mg BID PO Last administered on 01/18/19 08:17; Admin Dose 325 MG; Start 01/13/19 at 09:00 Folic Acid (Folic Acid) 1 mg DAILY PO Last administered on 01/18/19 08:17; Admin Dose 1 MG; Start 01/13/19 at 09:00 Insulin Glargine (Lantus) 20 units QHS SC Last administered on 01/14/19at 22:04; Admin Dose 20 UNITS; Start 01/13/19 at 21:00; Status Hold Aspirin (Aspirin) 81 mg DAILY PO Last administered on 01/18/19 08:17; Admin Dose 81 MG; Start 01/13/19 at 11:00 Miscellaneous Information 1 ea NOTE XX ; Start 01/13/19 at 15:30 Glucose (Glutose) 15 gm Q15M PRN PO DECREASED GLUCOSE; Start 01/13/19 at 15:30 Glucose (Glutose) 22.5 gm Q15M PRN PO DECREASED GLUCOSE; Start 01/13/19 at 15:30 Dextrose (D50w Syringe) 25 ml Q15M PRN IV DECREASED GLUCOSE; Start 01/13/19 at 15:30 Dextrose (D50w Syringe) 50 ml Q15M PRN IV DECREASED GLUCOSE; Start 01/13/19 at 15:30 Glucagon (Glucagen) 1 mg Q15M PRN IM DECREASED GLUCOSE; Start 01/13/19 at 15:30 Glucose (Glutose) 15 gm Q15M PRN BUCCAL DECREASED GLUCOSE; Start 01/13/19 at 15:30 Epoetin Cam-epbx (Retacrit (Esrd)) 4,000 unit TuThSa@1700 SC Last administered on 01/17/19at 20:38; Admin Dose 4,000 UNIT; Start 01/14/19 at 17:00 Levalbuterol (Xopenex Neb) 1.25 mg Q4H RESP THERAPY PRN HHN dyspnea; Start 01/14/19 at 19:00 Fentanyl 100 ml @ 5 mls/hr TITRATE IV Last administered on 01/18/19 00:34; Admin Dose 5 MLS/HR; Start 01/15/19 at 17:30 Meropenem/Sodium Chloride 50 ml @ 100 mls/hr Q12H IVPB Last administered on 01/18/19 04:57; Admin Dose 100 MLS/HR; Start 01/15/19 at 17:30 Norepinephrine 250 ml @ 1.875 mls/ hr TITRATE IV Last administered on 01/18/19 11:54; Admin Dose 31.875 MLS/HR; Start 01/15/19 at 17:30 Insulin Aspart (Novolog Insulin Pen) NOVOLOG *MILD* ALGORITHM Q4 SC Last administered on 01/18/19 14:17; Admin Dose 1 UNIT; Start 01/15/19 at 17:55 Ipratropium [place] (Atrovent Hfa) 4 puff Q6H RESP THERAPY INH Last administered on 01/18/19 13:29; Admin Dose 4 PUFF; Start 01/15/19 at 20:00 Albuterol (Ventolin Hfa) 4 puff Q6H RESP THERAPY INH Last administered on 01/18/19 13:29; Admin Dose 4 PUFF; Start 01/15/19 at 20:00 Famotidine (Pepcid Iv) 20 mg Q24H IV Last administered on 01/18/19 05:05; Admin Dose 20 MG; Start 01/16/19 at 06:00 Propofol 100 ml @ 2.46 mls/hr Q12H IV Last administered on 01/18/19 00:27; Admin Dose 9.84 MLS/HR; Start 01/15/19 at 23:00 Vasopressin 60 unit/Dextrose 60 ml @ 1.2 mls/hr Q12H IV Last administered on 01/18/19 05:05; Admin Dose 2.4 MLS/HR; Start 01/16/19 at 02:30 Phenylephrine HCl 250 ml @ 75 mls/hr TITRATE IV ; Start 01/16/19 at 10:30 Caspofungin 35 mg/ Sodium Chloride 250 ml @ 250 mls/hr Q24H IVPB Last administered on 01/17/19 15:20; Admin Dose 250 MLS/HR; Start 01/17/19 at 15:00 Docusate Sodium (Colace Liquid Cup) 100 mg BID NGT Last administered on 01/18/19 08:17; Admin Dose 100 MG; Start 01/17/19 at 21:00 Collagenase (Santyl) 1 applic BID TOP Last administered on 01/18/19at 08:17; Admin Dose 1 APPLIC; Start 01/17/19 at 21:00 Dexmedetomidine HCl 200 mcg/ Sodium Chloride 50 ml @ 4.1 mls/hr TITRATE IV Last administered on 01/18/19 10:04; Admin Dose 4.1 MLS/HR; Start 01/18/19 at 08:00 Metoclopramide HCl (Reglan) 5 mg Q6H IV ; Start 01/18/19 at 14:00 Albumin Human 100 ml @ 100 mls/hr DURING DIALYSIS PRN IV BLOOD PRESSURE SUPPORT Last administered on 01/18/19at 11:21; Admin Dose 100 MLS/HR; Start 01/18/19 at 11:30 Lactulose (Enulose) 20 gm DAILY PO ; Start 01/19/19 at 09:00 Vancomycin HCl 1.25 gm/Sodium Chloride 250 ml @ 83.333 mls/ hr ONCE ONCE IVPB ; Start 01/18/19 at 16:00; Stop 01/18/19 at 18:59 Amiodarone HCl (Cordarone) 200 mg TID PO ; Start 01/18/19 at 21:00 REJI RUBIO NP Jan 18, 2019 15:30
[2019-01-18] MEDS: CASPOFUNGIN 35 MG in SOD CHLORIDE 0.9% 250 ML IVPB SCH (15:40)
[2019-01-18] MEDS: METOCLOPRAMIDE 10 MG INJ IV SCH ×2 (15:40→20:52)
[2019-01-18] MEDS ORDERED: VANCOMYCIN HCL 1.25 GM in SOD CHLORIDE 0.9% 250 ML IVPB ONE (16:00)
[2019-01-18] MEDS: metroNIDAZOLE 500 MG/NS (PMX) 100 ML IVPB SCH ×2 (17:00→21:08)
[2019-01-18] MEDS: AMIODARONE 200 MG TAB PO SCH (20:53)
[2019-01-18] MEDS: ATORVASTATIN 40 MG TAB PO SCH (20:53)
[2019-01-19] VITALS (100 sets, daily range): BP systolic 50–168; BP diastolic 31–97; PULSE 73–97; RESP 12–29
[2019-01-19] MEDS: INSULIN ASPART [NOVOLOG] 3 ML PEN SC SCH ×6 (01:00→20:16)
[2019-01-19] MEDS: METOCLOPRAMIDE 10 MG INJ IV SCH ×4 (01:15→20:10)
[2019-01-19] MEDS: IPRATROPIUM (HFA) 12.9 GM INHALER INH SCH ×4 (01:37→19:47)
[2019-01-19] MEDS: ALBUTEROL HFA 8 GM INHALER INH SCH ×4 (01:37→19:47)
[2019-01-19] MEDS: VASOPRESSIN 60 UNIT in DEXTROSE 5% 57 ML IV SCH ×2 (02:30→14:30)
[2019-01-19] MEDS: metroNIDAZOLE 500 MG/NS (PMX) 100 ML IVPB SCH ×3 (02:58→14:58)
[2019-01-19] MEDS: MEROPENEM 500MG/50 ML (PMX) 50 ML IVPB SCH ×2 (05:28→18:05)
[2019-01-19] MEDS: HEPARIN 5,000 UNIT/1 ML VIAL SC SCH (05:29)
[2019-01-19] MEDS: FAMOTIDINE 20 MG INJ IV SCH (05:29)
[2019-01-19] MEDS: DEXMEDETOMIDINE HCL 200 MCG in SOD CHLORIDE 0.9% 48 ML IV SCH (06:46)
[2019-01-19] MEDS: NORepinephrine 8MG/250 ML (PMX 250 ML IV SCH ×2 (06:47→13:46)
--- NOTE | 2019-01-19 08:30 | CONS ---
Assessment/Plan Assessment/Plan Hospital Course (Demo Recall) Chest x-ray showing bilateral pneumonia. Ventilator setting; AC of 20, tidal volume 500, PEEP of 5, 40% FiO2. Patient is currently on fentanyl 25 mics per hour, Precedex drip as well. Assessment and recommendations; 1. Patient admitted with severe bilateral pneumonia still requiring full me chanical ventilatory support. 2. Some element of encephalopathy. Patient however currently is sedated. 3. History of prior CABG. 4. Anemia and severe thrombocytopenia. 5. Chronic renal failure, dialysis dependent. 6. History of cardiac arrhythmia. 7. History of hypertension and diabetes. Hold further sedation to assess mental status. Continue current supportive care. Hemodialysis per pulling unit floorhand. Prognosis is guarded at this point. 35 minutes of critical care time was spent evaluating the patient. Consultation Date/Type/Reason Admit Date/Time January 13, 2019 at 00:07 Initial Consult Date 01/17/19 Type of Consult Pulmonary/critical care Patient's condition is critical. Patient is currently sedated. Patient however has remained hemodynamically stable. General exam; elderly male, orally intubated, sedated, currently in no distress. Reason for Consultation H ENT exam; supple neck, positive JVD. No lymphadenopathy. Midline trachea. No thyromegaly. Patient has fair dentition. Orogastric tube in place. Orally intubated. Chest exam; diminished breath sounds bilaterally. There is a well-healed sternal scar. Abdomen exam; soft, no organomegaly. Bowel sounds audible. Extremity exam; trace edema with patchy ecchymosis. [employer] exam; patient is sedated. Date/Time of Note DATE: 01/19/19 TIME: 08:25 Exam/Review of Systems Exam Vitals Vital Signs Date Temp Pulse Resp B/P (MAP) Pulse Ox O2 O2 Flow FiO2 Time Delivery Rate 01/19/19 83 21 122/37 97 06:30 (65) 01/19/19 Mechanical 06:00 Ventilator 01/19/19 40 05:25 01/19/19 98.8 04:00 Intake and Output 01/18/19 01/18/19 01/19/19 1515:00 23:00 07:00 IntakeIntake Total 386.58 ml 742.45 ml 393.075 ml OutputOutput Total 1700 ml 0 ml 0 ml BalanceBalance -1313.42 ml 742.45 ml 393.075 ml Results Result Diagram: 01/19/19 0500 01/19/19 0500 Results 24hrs Laboratory Tests Test 01/18/19 14:04 01/18/19 17:58 01/18/19 20:51 01/19/19 01:14 Bedside Glucose 161 177 125 130 Test 01/19/19 05:00 01/19/19 05:27 White Blood Count 18.5 H Red Blood Count 2.58 L Hemoglobin 8.1 L Hematocrit 25.8 L Mean Corpuscular Volume 100.0 Mean Corpuscular 31.4 Hemoglobin Mean Corpuscular 31.4 L Hemoglobin Concent Red Cell Distribution 14.9 H Width Platelet Count 71 #L Mean Platelet Volume 12.3 H Immature Granulocytes % 2.100 H Neutrophils % Lymphocytes % Monocytes % Eosinophils % Basophils % Nucleated Red Blood 0.1 H Cells % Immature Granulocytes # 0.390 H Neutrophils # Lymphocytes # Monocytes # Eosinophils # Basophils # Nucleated Red Blood Cells # Sodium Level 139 Potassium Level 4.1 Chloride Level 104 Carbon Dioxide Level 25 Anion Gap 10 Blood Urea Nitrogen 24 H Creatinine 3.03 #H Est Glomerular Filtrat Rate mL/min Glucose Level 132 Calcium Level 8.6 Bedside Glucose 141 Medications Medication Current Medications Vancomycin HCl (Vanco Iv Per Pharmacy) VANCOMYCIN PER PHARMACY PER PROTOCOL XX ; Start 01/13/19 at 02:00 IV Flush (NS 3 ml) 3 ml PER PROTOCOL IV ; Start 01/13/19 at 02:00 Acetaminophen (Tylenol Tab) 650 mg Q6H PRN PO .PAIN 1-3 OR TEMP Last administered on 01/18/19at 08:28; Admin Dose 650 MG; Start 01/13/19 at 02:00 Acetaminophen/ Hydrocodone Bitart ([place] (5/325)) 1 tab Q6H PRN PO .PAIN 4-6 Last administered on 01/15/19at 13:40; Admin Dose 1 TAB; Start 01/13/19 at 02:00 Docusate Sodium (Colace) 100 mg Q12H PRN PO .CONSTIPATION; Start 01/13/19 at 02:00 Bisacodyl (Dulcolax) 5 mg DAILY PRN PO .CONSTIPATION; Start 01/13/19 at 02:00 Heparin Sodium (Porcine) (Heparin (5000 Units/1ml)) 5,000 unit Q8 SC Last administered on 6/6/19at 05:29; Admin Dose 5,000 UNIT; Start 01/13/19 at 06:00 Atorvastatin Calcium (Lipitor) 40 mg DAILY@21 PO Last administered on 01/18/19 20:53; Admin Dose 40 MG; Start 01/13/19 at 21:00 Carvedilol (Coreg) 12.5 mg BID PO ; Start 01/13/19 at 09:00; Status Hold Ferrous Sulfate (Ferrous Sulfate (Ec)) 325 mg BID PO Last administered on 01/18/19 20:52; Admin Dose 325 MG; Start 01/13/19 at 09:00 Folic Acid (Folic Acid) 1 mg DAILY PO Last administered on 01/18/19 08:17; Admin Dose 1 MG; Start 01/13/19 at 09:00 Insulin Glargine (Lantus) 20 units QHS SC Last administered on 01/14/19 22:04; Admin Dose 20 UNITS; Start 01/13/19 at 21:00; Status Hold Aspirin (Aspirin) 81 mg DAILY PO Last administered on 01/18/19 08:17; Admin Dose 81 MG; Start 01/13/19 at 11:00 Miscellaneous Information 1 ea NOTE XX ; Start 01/13/19 at 15:30 Glucose (Glutose) 15 gm Q15M PRN PO DECREASED GLUCOSE; Start 01/13/19 at 15:30 Glucose (Glutose) 22.5 gm Q15M PRN PO DECREASED GLUCOSE; Start 01/13/19 at 15:30 Dextrose (D50w Syringe) 25 ml Q15M PRN IV DECREASED GLUCOSE; Start 01/13/19 at 15:30 Dextrose (D50w Syringe) 50 ml Q15M PRN IV DECREASED GLUCOSE; Start 01/13/19 at 15:30 Glucagon (Glucagen) 1 mg Q15M PRN IM DECREASED GLUCOSE; Start 01/13/19 at 15:30 Glucose (Glutose) 15 gm Q15M PRN BUCCAL DECREASED GLUCOSE; Start 01/13/19 at 15:30 Epoetin Cam-epbx (Retacrit (Esrd)) 4,000 unit TuThSa@1700 SC Last administered on 01/17/19at 20:38; Admin Dose 4,000 UNIT; Start 01/14/19 at 17:00 Levalbuterol (Xopenex Neb) 1.25 mg Q4H RESP THERAPY PRN HHN dyspnea; Start 01/14/19 at 19:00 Fentanyl 100 ml @ 5 mls/hr TITRATE IV Last administered on 01/18/19 21:11; Admin Dose 5 MLS/HR; Start 01/15/19 at 17:30 Meropenem/Sodium Chloride 50 ml @ 100 mls/hr Q12H IVPB Last administered on 01/19/19 05:28; Admin Dose 100 MLS/HR; Start 01/15/19 at 17:30 Norepinephrine 250 ml @ 1.875 mls/ hr TITRATE IV Last administered on 01/19/19 06:47; Admin Dose 28.125 MLS/HR; Start 01/15/19 at 17:30 Insulin Aspart (Novolog Insulin Pen) NOVOLOG *MILD* ALGORITHM Q4 SC Last administered on 01/18/19 18:02; Admin Dose 1 UNIT; Start 01/15/19 at 17:55 Ipratropium [place] (Atrovent Hfa) 4 puff Q6H RESP THERAPY INH Last administ ered on 01/19/19 07:56; Admin Dose 4 PUFF; Start 01/15/19 at 20:00 Albuterol (Ventolin Hfa) 4 puff Q6H RESP THERAPY INH Last administered on 01/19/19 07:56; Admin Dose 4 PUFF; Start 01/15/19 at 20:00 Famotidine (Pepcid Iv) 20 mg Q24H IV Last administered on 01/19/19 05:29; Admin Dose 20 MG; Start 01/16/19 at 06:00 Propofol 100 ml @ 2.46 mls/hr Q12H IV Last administered on 01/18/19 00:27; Admin Dose 9.84 MLS/HR; Start 01/15/19 at 23:00 Vasopressin 60 unit/Dextrose 60 ml @ 1.2 mls/hr Q12H IV Last administered on 01/18/19 05:05; Admin Dose 2.4 MLS/HR; Start 01/16/19 at 02:30 Phenylephrine HCl 250 ml @ 75 mls/hr TITRATE IV ; Start 01/16/19 at 10:30 Caspofungin 35 mg/ Sodium Chloride 250 ml @ 250 mls/hr Q24H IVPB Last administered on 01/18/19 15:40; Admin Dose 250 MLS/HR; Start 01/17/19 at 15:00 Docusate Sodium (Colace Liquid Cup) 100 mg BID NGT Last administered on 01/18/19 20:52; Admin Dose 100 MG; Start 01/17/19 at 21:00 Collagenase (Santyl) 1 applic BID TOP Last administered on 01/18/19 20:53; Admin Dose 1 APPLIC; Start 01/17/19 at 21:00 Dexmedetomidine HCl 200 mcg/ Sodium Chloride 50 ml @ 4.1 mls/hr TITRATE IV Last administered on 01/19/19 06:46; Admin Dose 4.1 MLS/HR; Start 01/18/19 at 08:00 Metoclopramide HCl (Reglan) 5 mg Q6H IV Last administered on 01/19/19 01:15; Admin Dose 5 MG; Start 01/18/19 at 14:00 Albumin Human 100 ml @ 100 mls/hr DURING DIALYSIS PRN IV BLOOD PRESSURE SUPPORT Last administered on 01/18/19 11:21; Admin Dose 100 MLS/HR; Start 01/18/19 at 11:30 Lactulose (Enulose) 20 gm DAILY PO ; Start 01/19/19 at 09:00 Amiodarone HCl (Cordarone) 200 mg TID PO Last administered on 01/18/19 20:53; Admin Dose 200 MG; Start 01/18/19 at 21:00 Metronidazole 100 ml @ 100 mls/hr Q8 IVPB Last administered on 01/19/19 05:28; Admin Dose 100 MLS/HR; Start 01/18/19 at 16:00 BENIGNO MOBLEY 6, 2019 08:30
--- NOTE | 2019-01-19 08:47 | PN ---
Date/Time of Note Date/Time of Note DATE: 01/19/19 TIME: 08:42 Assessment/Plan VTE Prophylaxis Risk score (from Ns)>0 risk: 9 SCD applied (from Ns): Yes Pharmacological prophylaxis: heparin Lines/Catheters IV Catheter Type (from Nrs): Central Line Central line still needed: Yes Urinary Cath still in place: No Assessment/Plan Hospital Course 1. Sepsis shock secondary to underlying healthcare associated pneumonia - continue abx - ID following 2. Healthcare associated pneumonia - continue abx - ID consult following 3. Hypoxic respiratory failure - multifactorial: pna, esrd - continue breathing tx - intubated - vent weaning as tolerated - continue HD - warp hand following - consider bronchoscopy if not improving 4. NSTEMI type II secondary to demand - Echo with preserved EF - troponin marker downward trended - assistant activities director following 5 Coronary artery disease: History of CABG - statin/asa 6. End-stage renal disease - continue HD - f/u nephro recs - correct electrolytes as needed 7. Diabetes mellitus - A1c 4.7 - Continue insulin regimen 8. Hypertension - hypotensive - on vasopressors - titrate down 9. Lower back pain with left leg weakness: Possibly resulting in sciatica. - Continue PT once more stable 10. elevated LFT - monitor LFT - is upward trending - abd imaging 01.17.19: - Nodular liver surface, concerning for cirrhosis. Mild ascites. - Findings compatible with mild diffuse colitis, as above. - Cholelithiasis, without evidence for cholecystitis. - Mild fat-containing bilateral inguinal hernias, without incarceration. Nasogastric tube tip is in the stomach. - GI consult - Plan for MRCP per GI DISPO.PLAN: Plan for MRCP once stable per GI. f/u LFTs. abx for sepsis. titrate down vasopressors as tolerated. vent weaning as tolerated. continue ICU monitoring Discussed plan of care with Dr. Nieves More than 30 minutes spent on this encounter Result Diagram: 01/19/19 0500 01/19/19 0500 Results 24hrs Laboratory Tests Test 01/18/19 14:04 01/18/19 17:58 01/18/19 20:51 01/19/19 01:14 Bedside Glucose 161 177 125 130 Test 01/19/19 05:00 01/19/19 05:27 White Blood Count 18.5 H Red Blood Count 2.58 L Hemoglobin 8.1 L Hematocrit 25.8 L Mean Corpuscular Volume 100.0 Mean Corpuscular 31.4 Hemoglobin Mean Corpuscular 31.4 L Hemoglobin Concent Red Cell Distribution 14.9 H Width Platelet Count 71 #L Mean Platelet Volume 12.3 H Immature Granulocytes % 2.100 H Neutrophils % Lymphocytes % Monocytes % Eosinophils % Basophils % Nucleated Red Blood 0.1 H Cells % Immature Granulocytes # 0.390 H Neutrophils # Lymphocytes # Monocytes # Eosinophils # Basophils # Nucleated Red Blood Cells # Sodium Level 139 Potassium Level 4.1 Chloride Level 104 Carbon Dioxide Level 25 Anion Gap 10 Blood Urea Nitrogen 24 H Creatinine 3.03 #H Est Glomerular Filtrat Rate mL/min Glucose Level 132 Calcium Level 8.6 Bedside Glucose 141 Subjective 24 Hr Interval Summary Free Text/Dictation remains intubated on vasopressor. RN at bedside. Exam/Review of Systems Exam Vitals Vital Signs Date Temp Pulse Resp B/P (MAP) Pulse Ox O2 O2 Flow FiO2 Time Delivery Rate 01/19/19 83 21 122/37 97 06:30 (65) 01/19/19 Mechanical 06:00 Ventilator 01/19/19 40 05:25 01/19/19 98.8 04:00 Intake and Output 01/18/19 01/18/19 01/19/19 1515:00 23:00 07:00 IntakeIntake Total 386.58 ml 742.45 ml 393.075 ml OutputOutput Total 1700 ml 0 ml 0 ml BalanceBalance -1313.42 ml 742.45 ml 393.075 ml Exam Constitutional: No alert, No oriented (intubated and sedated ) Eyes: icteric Respiratory: diminished breath sounds (on mech vent ), Cardiac: other (regular rate ) Gastrointestinal: soft Genitourinary - Male: other (juarez catheter in place ) Neurological: No [employer] II-XII intact, No nl mental status (intubated/sedated ) Skin: other (decubitus ulcer sacral area ) Results Results 24hrs Laboratory Tests Test 01/18/19 14:04 01/18/19 17:58 01/18/19 20:51 01/19/19 01:14 Bedside Glucose 161 177 125 130 Test 01/19/19 05:00 01/19/19 05:27 White Blood Count 18.5 H Red Blood Count 2.58 L Hemoglobin 8.1 L Hematocrit 25.8 L Mean Corpuscular Volume 100.0 Mean Corpuscular 31.4 Hemoglobin Mean Corpuscular 31.4 L Hemoglobin Concent Red Cell Distribution 14.9 H Width Platelet Count 71 #L Mean Platelet Volume 12.3 H Immature Granulocytes % 2.100 H Neutrophils % Lymphocytes % Monocytes % Eosinophils % Basophils % Nucleated Red Blood 0.1 H Cells % Immature Granulocytes # 0.390 H Neutrophils # Lymphocytes # Monocytes # Eosinophils # Basophils # Nucleated Red Blood Cells # Sodium Level 139 Potassium Level 4.1 Chloride Level 104 Carbon Dioxide Level 25 Anion Gap 10 Blood Urea Nitrogen 24 H Creatinine 3.03 #H Est Glomerular Filtrat Rate mL/min Glucose Level 132 Calcium Level 8.6 Bedside Glucose 141 Medications Medication Current Medications Vancomycin HCl (Vanco Iv Per Pharmacy) VANCOMYCIN PER PHARMACY PER PROTOCOL XX ; Start 01/13/19 at 02:00 IV Flush (NS 3 ml) 3 ml PER PROTOCOL IV ; Start 01/13/19 at 02:00 Acetaminophen (Tylenol Tab) 650 mg Q6H PRN PO .PAIN 1-3 OR TEMP Last administered on 01/18/19at 08:28; Admin Dose 650 MG; Start 01/13/19 at 02:00 Acetaminophen/ Hydrocodone Bitart ([place] (5/325)) 1 tab Q6H PRN PO .PAIN 4-6 Last administered on 01/15/19at 13:40; Admin Dose 1 TAB; Start 01/13/19 at 02:00 Docusate Sodium (Colace) 100 mg Q12H PRN PO .CONSTIPATION; Start 01/13/19 at 02:00 Bisacodyl (Dulcolax) 5 mg DAILY PRN PO .CONSTIPATION; Start 01/13/19 at 02:00 Heparin Sodium (Porcine) (Heparin (5000 Units/1ml)) 5,000 unit Q8 SC Last administered on 01/19/19at 05:29; Admin Dose 5,000 UNIT; Start 01/13/19 at 06:00 Atorvastatin Calcium (Lipitor) 40 mg DAILY@21 PO Last administered on 01/18/19at 20:53; Admin Dose 40 MG; Start 01/13/19 at 21:00 Carvedilol (Coreg) 12.5 mg BID PO ; Start 01/13/19 at 09:00; Status Hold Ferrous Sulfate (Ferrous Sulfate (Ec)) 325 mg BID PO Last administered on 01/18/19at 20:52; Admin Dose 325 MG; Start 01/13/19 at 09:00 Folic Acid (Folic Acid) 1 mg DAILY PO Last administered on 01/18/19at 08:17; Admin Dose 1 MG; Start 01/13/19 at 09:00 Insulin Glargine (Lantus) 20 units QHS SC Last administered on 01/14/19at 22:04; Admin Dose 20 UNITS; Start 01/13/19 at 21:00; Status Hold Aspirin (Aspirin) 81 mg DAILY PO Last administered on 01/18/19at 08:17; Admin Dose 81 MG; Start 01/13/19 at 11:00 Miscellaneous Information 1 ea NOTE XX ; Start 01/13/19 at 15:30 Glucose (Glutose) 15 gm Q15M PRN PO DECREASED GLUCOSE; Start 01/13/19 at 15:30 Glucose (Glutose) 22.5 gm Q15M PRN PO DECREASED GLUCOSE; Start 01/13/19 at 15:30 Dextrose (D50w Syringe) 25 ml Q15M PRN IV DECREASED GLUCOSE; Start 01/13/19 at 15:30 Dextrose (D50w Syringe) 50 ml Q15M PRN IV DECREASED GLUCOSE; Start 01/13/19 at 15:30 Glucagon (Glucagen) 1 mg Q15M PRN IM DECREASED GLUCOSE; Start 01/13/19 at 15:30 Glucose (Glutose) 15 gm Q15M PRN BUCCAL DECREASED GLUCOSE; Start 01/13/19 at 15 :30 Epoetin Cam-epbx (Retacrit (Esrd)) 4,000 unit TuThSa@1700 SC Last administered on 01/17/19at 20:38; Admin Dose 4,000 UNIT; Start 01/14/19 at 17:00 Levalbuterol (Xopenex Neb) 1.25 mg Q4H RESP THERAPY PRN HHN dyspnea; Start 01/14/19 at 19:00 Fentanyl 100 ml @ 5 mls/hr TITRATE IV Last administered on 01/18/19at 21:11; Admin Dose 5 MLS/HR; Start 01/15/19 at 17:30 Meropenem/Sodium Chloride 50 ml @ 100 mls/hr Q12H IVPB Last administered on 01/19/19at 05:28; Admin Dose 100 MLS/HR; Start 01/15/19 at 17:30 Norepinephrine 250 ml @ 1.875 mls/ hr TITRATE IV Last administered on 01/19/19 06:47; Admin Dose 28.125 MLS/HR; Start 01/15/19 at 17:30 Insulin Aspart (Novolog Insulin Pen) NOVOLOG *MILD* ALGORITHM Q4 SC Last administered on 01/18/19 18:02; Admin Dose 1 UNIT; Start 01/15/19 at 17:55 Ipratropium [place] (Atrovent Hfa) 4 puff Q6H RESP THERAPY INH Last administered on 01/19/19 07:56; Admin Dose 4 PUFF; Start 01/15/19 at 20:00 Albuterol (Ventolin Hfa) 4 puff Q6H RESP THERAPY INH Last administered on 01/19/19 07:56; Admin Dose 4 PUFF; Start 01/15/19 at 20:00 Famotidine (Pepcid Iv) 20 mg Q24H IV Last administered on 01/19/19 05:29; Admin Dose 20 MG; Start 01/16/19 at 06:00 Propofol 100 ml @ 2.46 mls/hr Q12H IV Last administered on 01/18/19 00:27; Admin Dose 9.84 MLS/HR; Start 01/15/19 at 23:00 Vasopressin 60 unit/Dextrose 60 ml @ 1.2 mls/hr Q12H IV Last administered on 01/18/19 05:05; Admin Dose 2.4 MLS/HR; Start 01/16/19 at 02:30 Phenylephrine HCl 250 ml @ 75 mls/hr TITRATE IV ; Start 01/16/19 at 10:30 Caspofungin 35 mg/ Sodium Chloride 250 ml @ 250 mls/hr Q24H IVPB Last adminis tered on 01/18/19 15:40; Admin Dose 250 MLS/HR; Start 01/17/19 at 15:00 Docusate Sodium (Colace Liquid Cup) 100 mg BID NGT Last administered on 01/18/19 20:52; Admin Dose 100 MG; Start 01/17/19 at 21:00 Collagenase (Santyl) 1 applic BID TOP Last administered on 01/18/19 20:53; Admin Dose 1 APPLIC; Start 01/17/19 at 21:00 Dexmedetomidine HCl 200 mcg/ Sodium Chloride 50 ml @ 4.1 mls/hr TITRATE IV L ast administered on 01/19/19at 06:46; Admin Dose 4.1 MLS/HR; Start 01/18/19 at 08:00 Metoclopramide HCl (Reglan) 5 mg Q6H IV Last administered on 01/19/19at 01:15; Admin Dose 5 MG; Start 01/18/19 at 14:00 Albumin Human 100 ml @ 100 mls/hr DURING DIALYSIS PRN IV BLOOD PRESSURE SUPPORT Last administered on 01/18/19at 11:21; Admin Dose 100 MLS/HR; Start 01/18/19 at 11:30 Lactulose (Enulose) 20 gm DAILY PO ; Start 01/19/19 at 09:00 Amiodarone HCl (Cordarone) 200 mg TID PO Last administered on 01/18/19at 20:53; Admin Dose 200 MG; Start 01/18/19 at 21:00 Metronidazole 100 ml @ 100 mls/hr Q8 IVPB Last administered on 01/19/19at 05:28; Admin Dose 100 MLS/HR; Start 01/18/19 at 16:00 SULEIMAN BOYD NP Jan 19, 2019 08:46
[2019-01-19] MEDS ORDERED: LACTULOSE 30ML CUP PO SCH (09:00)
[2019-01-19] MEDS: AMIODARONE 200 MG TAB PO SCH ×3 (09:39→20:11)
[2019-01-19] MEDS: ASPIRIN 81 MG TAB PO SCH (09:40)
[2019-01-19] MEDS: DOCUSATE SODIUM 10 MG/ML (10ML CUP) NGT SCH ×2 (09:40→20:10)
[2019-01-19] MEDS: FOLIC ACID 1 MG TAB PO SCH (09:41)
[2019-01-19] MEDS: FERROUS SULFATE (EC) 325 MG TAB PO SCH ×2 (09:41→20:11)
[2019-01-19] MEDS: COLLAGENASE 5 GM (UD JAR) TOP SCH ×2 (09:51→20:11)
[2019-01-19] MEDS: BALSAM PERU/CASTOR OIL 60 GM TUBE TOP SCH ×2 (09:52→20:11)
--- NOTE | 2019-01-19 10:05 | CONS ---
Assessment/Plan Assessment/Plan Assessment/Plan (Daily) ssessment/Plan (Daily) 1 End-stage renal disease on hemodialysis. hemodialysis Wednesday, and Wednesday via left arm AV fistula 2. Septic shock , likely secondary to pneumonia/ cholecystitis. with elevated bilirubin , cx positive for yeast 3. Elevated trop 4. Hypokalemia, resolved. 5. Leukocytosis. 6. Shortness of breath, cough, weakness, leukocytosis of 26.8, likely secondary to pneumonia. with hypoxic and hypercapnic resp failure 7. Hyperbilirubinemia, abnormal liver function tests. 8. respiratory failure, likely secondary to pneumonia. 9. Hypertension, currently hypotensive 10. Dyslipidemia. 11. Diabetes. 12. Anemia chronic disease 13. encephalopathy, ALOC 14 Respiratory failure s/p intubation 15 New onset AFIB 16 Abnormal LFT with elevated Bili/direct/alk phos and elevation of transaminases ? r/o obstruction Assessment/Plan (Daily) -on vent -Since we do not have the capability of CRRT here, trying to do slow hemodialysis tmw, now only on one pressor - KUB to bowel obstruction as not able to tolerating feeding - will prime with Albumin before hd tmw -avoid nephrotoxic drugs -c/w Epogen after HD -cw vanco/meropenam/caspo/ flagyl per ID Consultation Date/Type/Reason Admit Date/Time January 13, 2019 at 00:07 Initial Consult Date 01/15/19 Date/Time of Note DATE: 01/19/19 TIME: 10:05 24 HR Interval Summary Free Text/Dictation And is currently only on 1 pressor, off sedation currently Only on 40% FiO2 Swelling of the left arm Exam/Review of Systems Exam Vitals Vital Signs Date Temp Pulse Resp B/P (MAP) Pulse Ox O2 O2 Flow FiO2 Time Delivery Rate 01/19/19 88 27 132/39 99 Mechanical 08:30 (70) Ventilator 01/19/19 99.1 08:00 01/19/19 40 05:25 Intake and Output 01/18/19 01/18/19 01/19/19 1515:00 23:00 07:00 IntakeIntake Total 386.58 ml 742.45 ml 406.675 ml OutputOutput Total 1700 ml 0 ml 0 ml BalanceBalance -1313.42 ml 742.45 ml 406.675 ml Exam ntubated , left arm AV fistula Head: normocephalic, scleral icterus++ Neck: supple Respiratory: diminished breath sounds Cardiovascular: regular rate and rhythm Gastrointestinal: soft, nl liver, spleen, non-tender, ascites, bowel sounds, distended, firm, hepatomegaly, mass, rebound or guarding, splenomegaly, surgical scars, tender, other (pos. Richter sign) Skin: other (pale) edema + Results Result Diagram: 01/19/19 0500 01/19/19 0500 Results 24hrs Laboratory Tests Test 01/18/19 14:04 01/18/19 17:58 01/18/19 20:51 01/19/19 01:14 Bedside Glucose 161 177 125 130 Test 01/19/19 05:00 01/19/19 05:27 01/19/19 09:56 White Blood Count 18.5 H Red Blood Count 2.58 L Hemoglobin 8.1 L Hematocrit 25.8 L Mean Corpuscular Volume 100.0 Mean Corpuscular 31.4 Hemoglobin Mean Corpuscular 31.4 L Hemoglobin Concent Red Cell Distribution 14.9 H Width Platelet Count 71 #L Mean Platelet Volume 12.3 H Immature Granulocytes % 2.100 H Neutrophils % Segmented Neutrophils 79 H % (Manual) Band Neutrophils % 3 (Manual) Lymphocytes % Lymphocytes % (Manual) 5 L Monocytes % Monocytes % (Manual) 4 Eosinophils % Eosinophils % (Manual) 5 Basophils % Basophils % (Manual) 2 Myelocytes % (Manual) 2 H Nucleated Red Blood 0.1 H Cells % Immature Granulocytes # 0.390 H Neutrophils # Neutrophils # (Manual) 14.7 H Band Neutrophils # 0.5 Lymphocytes (Manual) 0.9 Lymphocytes # Monocytes # Monocytes # (Manual) 0.7 Eosinophils # Basophils # Basophils # (Manual) 0.3 H Myelocytes # 0.3 H Nucleated Red Blood Cells # Platelet Estimate DECREASED Giant Platelets 2 H Polychromasia 1+ Poikilocytosis 2+ Anisocytosis 2+ Macrocytosis 1+ Spherocytes 1+ Sodium Level 139 Potassium Level 4.1 Chloride Level 104 Carbon Dioxide Level 25 Anion Gap 10 Blood Urea Nitrogen 24 H Creatinine 3.03 #H Est Glomerular Filtrat Rate mL/min Glucose Level 132 Calcium Level 8.6 Total Bilirubin 6.7 H Direct Bilirubin 5.80 H Indirect Bilirubin 0.9 Aspartate Amino 124 H Transf (AST/SGOT) Alanine 44 Aminotransferase (ALT/SG PT) Alkaline Phosphatase 225 H Total Protein 4.9 L Albumin 2.3 L Bedside Glucose 141 128 Medications Medication Current Medications Vancomycin HCl (Vanco Iv Per Pharmacy) VANCOMYCIN PER PHARMACY PER PROTOCOL XX ; Start 01/13/19 at 02:00 IV Flush (NS 3 ml) 3 ml PER PROTOCOL IV ; Start 01/13/19 at 02:00 Acetaminophen (Tylenol Tab) 650 mg Q6H PRN PO .PAIN 1-3 OR TEMP Last adminis tered on 01/18/19at 08:28; Admin Dose 650 MG; Start 01/13/19 at 02:00 Acetaminophen/ Hydrocodone Bitart ([place] (5/325)) 1 tab Q6H PRN PO .PAIN 4-6 Last administered on 01/15/19 13:40; Admin Dose 1 TAB; Start 01/13/19 at 02:00 Docusate Sodium (Colace) 100 mg Q12H PRN PO .CONSTIPATION; Start 01/13/19 at 02:00 Bisacodyl (Dulcolax) 5 mg DAILY PRN PO .CONSTIPATION; Start 01/13/19 at 02:00 Heparin Sodium (Porcine) (Heparin (5000 Units/1ml)) 5,000 unit Q8 SC Last administered on 01/19/19 05:29; Admin Dose 5,000 UNIT; Start 01/13/19 at 06:00 Atorvastatin Calcium (Lipitor) 40 mg DAILY@21 PO Last administered on 01/18/19at 20:53; Admin Dose 40 MG; Start 01/13/19 at 21:00 Carvedilol (Coreg) 12.5 mg BID PO ; Start 01/13/19 at 09:00; Status Hold Ferrous Sulfate (Ferrous Sulfate (Ec)) 325 mg BID PO Last administered on 01/19/19 09:41; Admin Dose 325 MG; Start 01/13/19 at 09:00 Folic Acid (Folic Acid) 1 mg DAILY PO Last administered on 01/19/19 09:41; Admin Dose 1 MG; Start 01/13/19 at 09:00 Insulin Glargine (Lantus) 20 units QHS SC Last administered on 01/14/19at 22:04; Admin Dose 20 UNITS; Start 01/13/19 at 21:00; Status Hold Aspirin (Aspirin) 81 mg DAILY PO Last administered on 01/19/19at 09:40; Admin Dose 81 MG; Start 01/13/19 at 11:00 Miscellaneous Information 1 ea NOTE XX ; Start 01/13/19 at 15:30 Glucose (Glutose) 15 gm Q15M PRN PO DECREASED GLUCOSE; Start 01/13/19 at 15:30 Glucose (Glutose) 22.5 gm Q15M PRN PO DECREASED GLUCOSE; Start 01/13/19 at 15:30 Dextrose (D50w Syringe) 25 ml Q15M PRN IV DECREASED GLUCOSE; Start 01/13/19 at 15:30 Dextrose (D50w Syringe) 50 ml Q15M PRN IV DECREASED GLUCOSE; Start 01/13/19 at 15:30 Glucagon (Glucagen) 1 mg Q15M PRN IM DECREASED GLUCOSE; Start 01/13/19 at 15:30 Glucose (Glutose) 15 gm Q15M PRN BUCCAL DECREASED GLUCOSE; Start 01/13/19 at 15:30 Epoetin Cam-epbx (Retacrit (Esrd)) 4,000 unit TuThSa@1700 SC Last administered on 01/17/19at 20:38; Admin Dose 4,000 UNIT; Start 01/14/19 at 17:00 Levalbuterol (Xopenex Neb) 1.25 mg Q4H RESP THERAPY PRN HHN dyspnea; Start 01/14/19 at 19:00 Fentanyl 100 ml @ 5 mls/hr TITRATE IV Last administered on 01/18/19at 21:11; Admin Dose 5 MLS/HR; Start 01/15/19 at 17:30 Meropenem/Sodium Chloride 50 ml @ 100 mls/hr Q12H IVPB Last administered on 01/19/19at 05:28; Admin Dose 100 MLS/HR; Start 01/15/19 at 17:30 Norepinephrine 250 ml @ 1.875 mls/ hr TITRATE IV Last administered on 01/19/19at 06:47; Admin Dose 28.125 MLS/HR; Start 01/15/19 at 17:30 Insulin Aspart (Novolog Insulin Pen) NOVOLOG *MILD* ALGORITHM Q4 SC Last administered on 01/18/19at 18:02; Admin Dose 1 UNIT; Start 01/15/19 at 17:55 Ipratropium [place] (Atrovent Hfa) 4 puff Q6H RESP THERAPY INH Last administered on 01/19/19 07:56; Admin Dose 4 PUFF; Start 01/15/19 at 20:00 Albuterol (Ventolin Hfa) 4 puff Q6H RESP THERAPY INH Last administered on 01/19/19 07:56; Admin Dose 4 PUFF; Start 01/15/19 at 20:00 Famotidine (Pepcid Iv) 20 mg Q24H IV Last administered on 01/19/19 05:29; Admin Dose 20 MG; Start 01/16/19 at 06:00 Propofol 100 ml @ 2.46 mls/hr Q12H IV Last administered on 01/18/19 00:27; Admin Dose 9.84 MLS/HR; Start 01/15/19 at 23:00 Vasopressin 60 unit/Dextrose 60 ml @ 1.2 mls/hr Q12H IV Last administered on 01/18/19 05:05; Admin Dose 2.4 MLS/HR; Start 01/16/19 at 02:30 Phenylephrine HCl 250 ml @ 75 mls/hr TITRATE IV ; Start 01/16/19 at 10:30 Caspofungin 35 mg/ Sodium Chloride 250 ml @ 250 mls/hr Q24H IVPB Last administered on 01/18/19 15:40; Admin Dose 250 MLS/HR; Start 01/17/19 at 15:00 Docusate Sodium (Colace Liquid Cup) 100 mg BID NGT Last administered on 01/19/19 09:40; Admin Dose 100 MG; Start 01/17/19 at 21:00 Collagenase (Santyl) 1 applic BID TOP Last administered on 01/19/19 09:51; Admin Dose 1 APPLIC; Start 01/17/19 at 21:00 Dexmedetomidine HCl 200 mcg/ Sodium Chloride 50 ml @ 4.1 mls/hr TITRATE IV Last administered on 01/19/19 06:46; Admin Dose 4.1 MLS/HR; Start 01/18/19 at 08:00 Metoclopramide HCl (Reglan) 5 mg Q6H IV Last administered on 01/19/19 09:38; Admin Dose 5 MG; Start 01/18/19 at 14:00 Albumin Human 100 ml @ 100 mls/hr DURING DIALYSIS PRN IV BLOOD PRESSURE SUPPORT Last administered on 01/18/19 11:21; Admin Dose 100 MLS/HR; Start 01/18/19 at 11:30 Lactulose (Enulose) 20 gm DAILY PO Last administered on 01/19/19at 09:38; Admin Dose 20 GM; Start 01/19/19 at 09:00 Amiodarone HCl (Cordarone) 200 mg TID PO Last administered on 01/19/19 09:39; Admin Dose 200 MG; Start 01/18/19 at 21:00 Metronidazole 100 ml @ 100 mls/hr Q8 IVPB Last administered on 01/19/19 05:28; Admin Dose 100 MLS/HR; Start 01/18/19 at 16:00 JUAN NOLAND MD Jan 19, 2019 10:05
[2019-01-19] MEDS: PROPOFOL 100 ML IV SCH ×2 (11:00→22:27)
--- NOTE | 2019-01-19 13:21 | CONS ---
Assessment/Plan Assessment/Plan Hospital Course (Demo Recall) No acute changes overnight patient remains on Levophed drip, vasopressin off, no fevers WBC 18.5 H&H 8.1 and 25.8 platelets 71 KUB this morning revealed no evidence of obstruction Antimicrobials: Flagyl Cancidas meropenem vancomycin Microbiology: Sputum culture grew yeast. CT abdomen pelvis without contrast revealed diffuse colitis. Cholelithiasis without evidence for cholecystitis. Nonspecific patchy bibasilar pulmonary consolidation. Please see full report in the chart Indwelling's endotracheal tube, NG tube, right IJ triple-lumen catheter, left upper extremity AV fistula Physical examination: Chronically ill-appearing elderly man who is intubated sedated in no distress. Head atraumatic normocephalic sclera nonicteric vehicle mucosa dry. Neck is supple chest rise symmetrical breath sounds diminished bases. Heart: S1-S2. Abdomen soft bowel sounds present. Extremities with bilateral edema. Assessment: 1. Severe sepsis with shock ?biliary 2. Acute hypoxemic respiratory failure/CHF exacerbation 3. Healthcare associated pneumonia possibly aspirated 4. Colitis 5. End-stage renal disease, hemodialysis dependent 6. Coronary artery disease 7. Transaminitis with elevated total bilirubin, poss obstruction Plan: Patient remains hemodynamically unstable, continue antibiotics, GI rec-s noted==> MRCP when patient stable to rule out common bile duct obstruction versus hepatocellular disease Consultation Date/Type/Reason Admit Date/Time January 13, 2019 at 00:07 Initial Consult Date 01/15/19 Type of Consult id Date/Time of Note DATE: 01/19/19 TIME: 13:18 Exam/Review of Systems Exam Vitals Vital Signs Date Temp Pulse Resp B/P (MAP) Pulse Ox O2 O2 Flow FiO2 Time Delivery Rate 01/19/19 85 17 94/35 (54) 97 Mechanical 11:45 Ventilator 01/19/19 40 08:15 01/19/19 99.1 08:00 Intake and Output 01/18/19 01/18/19 01/19/19 1515:00 23:00 07:00 IntakeIntake Total 386.58 ml 742.45 ml 406.675 ml OutputOutput Total 1700 ml 0 ml 0 ml BalanceBalance -1313.42 ml 742.45 ml 406.675 ml Results Result Diagram: 01/19/19 0500 01/19/19 0500 Results 24hrs Laboratory Tests Test 01/18/19 14:04 01/18/19 17:58 01/18/19 20:51 01/19/19 01:14 Bedside Glucose 161 177 125 130 Test 01/19/19 05:00 01/19/19 05:27 01/19/19 09:56 White Blood Count 18.5 H Red Blood Count 2.58 L Hemoglobin 8.1 L Hematocrit 25.8 L Mean Corpuscular Volume 100.0 Mean Corpuscular 31.4 Hemoglobin Mean Corpuscular 31.4 L Hemoglobin Concent Red Cell Distribution 14.9 H Width Platelet Count 71 #L Mean Platelet Volume 12.3 H Immature Granulocytes % 2.100 H Neutrophils % Segmented Neutrophils 79 H % (Manual) Band Neutrophils % 3 (Manual) Lymphocytes % Lymphocytes % (Manual) 5 L Monocytes % Monocytes % (Manual) 4 Eosinophils % Eosinophils % (Manual) 5 Basophils % Basophils % (Manual) 2 Myelocytes % (Manual) 2 H Nucleated Red Blood 0.1 H Cells % Immature Granulocytes # 0.390 H Neutrophils # Neutrophils # (Manual) 14.7 H Band Neutrophils # 0.5 Lymphocytes (Manual) 0.9 Lymphocytes # Monocytes # Monocytes # (Manual) 0.7 Eosinophils # Basophils # Basophils # (Manual) 0.3 H Myelocytes # 0.3 H Nucleated Red Blood Cells # Platelet Estimate DECREASED Giant Platelets 2 H Polychromasia 1+ Poikilocytosis 2+ Anisocytosis 2+ Macrocytosis 1+ Spherocytes 1+ Sodium Level 139 Potassium Level 4.1 Chloride Level 104 Carbon Dioxide Level 25 Anion Gap 10 Blood Urea Nitrogen 24 H Creatinine 3.03 #H Est Glomerular Filtrat Rate mL/min Glucose Level 132 Calcium Level 8.6 Total Bilirubin 6.7 H Direct Bilirubin 5.80 H Indirect Bilirubin 0.9 Aspartate Amino 124 H Transf (AST/SGOT) Alanine 44 Aminotransferase (ALT/SG PT) Alkaline Phosphatase 225 H Total Protein 4.9 L Albumin 2.3 L Bedside Glucose 141 128 Medications Medication Current Medications Vancomycin HCl (Vanco Iv Per Pharmacy) VANCOMYCIN PER PHARMACY PER PROTOCOL XX ; Start 01/13/19 at 02:00 IV Flush (NS 3 ml) 3 ml PER PROTOCOL IV ; Start 01/13/19 at 02:00 Acetaminophen (Tylenol Tab) 650 mg Q6H PRN PO .PAIN 1-3 OR TEMP Last administered on 01/18/19at 08:28; Admin Dose 650 MG; Start 01/13/19 at 02:00 Acetaminophen/ Hydrocodone Bitart ([place] (5/325)) 1 tab Q6H PRN PO .PAIN 4-6 Last administered on 01/15/19 13:40; Admin Dose 1 TAB; Start 01/13/19 at 02:00 Docusate Sodium (Colace) 100 mg Q12H PRN PO .CONSTIPATION; Start 01/13/19 at 02:00 Bisacodyl (Dulcolax) 5 mg DAILY PRN PO .CONSTIPATION; Start 01/13/19 at 02:00 Heparin Sodium (Porcine) (Heparin (5000 Units/1ml)) 5,000 unit Q8 SC Last administered on 01/19/19 05:29; Admin Dose 5,000 UNIT; Start 01/13/19 at 06:00; Status Hold Atorvastatin Calcium (Lipitor) 40 mg DAILY@21 PO Last administered on 01/18/19 20:53; Admin Dose 40 MG; Start 01/13/19 at 21:00 Carvedilol (Coreg) 12.5 mg BID PO ; Start 01/13/19 at 09:00; Status Hold Ferrous Sulfate (Ferrous Sulfate (Ec)) 325 mg BID PO Last administered on 01/19/19 09:41; Admin Dose 325 MG; Start 01/13/19 at 09:00 Folic Acid (Folic Acid) 1 mg DAILY PO Last administered on 01/19/19 09:41; Admin Dose 1 MG; Start 01/13/19 at 09:00 Insulin Glargine (Lantus) 20 units QHS SC Last administered on 01/14/19 22:04; Admin Dose 20 UNITS; Start 01/13/19 at 21:00; Status Hold Aspirin (Aspirin) 81 mg DAILY PO Last administered on 01/19/19 09:40; Admin Dose 81 MG; Start 01/13/19 at 11:00 Miscellaneous Information 1 ea NOTE XX ; Start 01/13/19 at 15:30 Glucose (Glutose) 15 gm Q15M PRN PO DECREASED GLUCOSE; Start 01/13/19 at 15:30 Glucose (Glutose) 22.5 gm Q15M PRN PO DECREASED GLUCOSE; Start 01/13/19 at 15:30 Dextrose (D50w Syringe) 25 ml Q15M PRN IV DECREASED GLUCOSE; Start 01/13/19 at 15:30 Dextrose (D50w Syringe) 50 ml Q15M PRN IV DECREASED GLUCOSE; Start 01/13/19 at 15:30 Glucagon (Glucagen) 1 mg Q15M PRN IM DECREASED GLUCOSE; Start 01/13/19 at 15:30 Glucose (Glutose) 15 gm Q15M PRN BUCCAL DECREASED GLUCOSE; Start 01/13/19 at 15:30 Epoetin Cam-epbx (Retacrit (Esrd)) 4,000 unit TuThSa@1700 SC Last administered on 01/17/19at 20:38; Admin Dose 4,000 UNIT; Start 01/14/19 at 17:00 Levalbuterol (Xopenex Neb) 1.25 mg Q4H RESP THERAPY PRN HHN dyspnea; Start 01/14/19 at 19:00 Fentanyl 100 ml @ 5 mls/hr TITRATE IV Last administered on 01/18/19at 21:11; Admin Dose 5 MLS/HR; Start 01/15/19 at 17:30 Meropenem/Sodium Chloride 50 ml @ 100 mls/hr Q12H IVPB Last administered on 01/19/19 05:28; Admin Dose 100 MLS/HR; Start 01/15/19 at 17:30 Norepinephrine 250 ml @ 1.875 mls/ hr TITRATE IV Last administered on 01/19/19at 06:47; Admin Dose 28.125 MLS/HR; Start 01/15/19 at 17:30 Insulin Aspart (Novolog Insulin Pen) NOVOLOG *MILD* ALGORITHM Q4 SC Last administered on 01/18/19at 18:02; Admin Dose 1 UNIT; Start 01/15/19 at 17:55 Ipratropium [place] (Atrovent Hfa) 4 puff Q6H RESP THERAPY INH Last administered on 01/19/19 07:56; Admin Dose 4 PUFF; Start 01/15/19 at 20:00 Albuterol (Ventolin Hfa) 4 puff Q6H RESP THERAPY INH Last administered on 01/19/19 07:56; Admin Dose 4 PUFF; Start 01/15/19 at 20:00 Famotidine (Pepcid Iv) 20 mg Q24H IV Last administered on 01/19/19 05:29; Admin Dose 20 MG; Start 01/16/19 at 06:00 Propofol 100 ml @ 2.46 mls/hr Q12H IV Last administered on 01/18/19 00:27; Admin Dose 9.84 MLS/HR; Start 01/15/19 at 23:00 Vasopressin 60 unit/Dextrose 60 ml @ 1.2 mls/hr Q12H IV Last administered on 01/18/19 05:05; Admin Dose 2.4 MLS/HR; Start 01/16/19 at 02:30 Phenylephrine HCl 250 ml @ 75 mls/hr TITRATE IV ; Start 01/16/19 at 10:30 Caspofungin 35 mg/ Sodium Chloride 250 ml @ 250 mls/hr Q24H IVPB Last administered on 01/18/19 15:40; Admin Dose 250 MLS/HR; Start 01/17/19 at 15:00 Docusate Sodium (Colace Liquid Cup) 100 mg BID NGT Last administered on 01/19/19 09:40; Admin Dose 100 MG; Start 01/17/19 at 21:00 Collagenase (Santyl) 1 applic BID TOP Last administered on 01/19/19 09:51; Admin Dose 1 APPLIC; Start 01/17/19 at 21:00 Dexmedetomidine HCl 200 mcg/ Sodium Chloride 50 ml @ 4.1 mls/hr TITRATE IV Last administered on 01/19/19 06:46; Admin Dose 4.1 MLS/HR; Start 01/18/19 at 08:00 Metoclopramide HCl (Reglan) 5 mg Q6H IV Last administered on 01/19/19 09:38; Admin Dose 5 MG; Start 01/18/19 at 14:00 Albumin Human 100 ml @ 100 mls/hr DURING DIALYSIS PRN IV BLOOD PRESSURE SUPPORT Last administered on 01/18/19 11:21; Admin Dose 100 MLS/HR; Start 01/18/19 at 11:30 Lactulose (Enulose) 20 gm DAILY PO Last administered on 01/19/19 09:38; Admin Dose 20 GM; Start 01/19/19 at 09:00 Amiodarone HCl (Cordarone) 200 mg TID PO Last administered on 01/19/19 09:39; Admin Dose 200 MG; Start 01/18/19 at 21:00 Metronidazole 100 ml @ 100 mls/hr Q8 IVPB Last administered on 01/19/19at 05:28; Admin Dose 100 MLS/HR; Start 01/18/19 at 16:00 REJI RUBIO NP Jan 19, 2019 13:20
--- NOTE | 2019-01-19 14:36 | CONS ---
Assessment/Plan Assessment/Plan Hospital Course (Demo Recall) Shock, likely secondary to sepsis Vent dependent respiratory failure Severe hypotension on IV pressor Sepsis secondary to pneumonia New onset atrial fibrillation-currently sinus rhythm Preserved left ventricular ejection fraction Minimally elevated troponin CAD with history of CABG End-stage renal disease on hemodialysis Diabetes Hypertension Dyslipidemia Titrate IV pressors to maintain SBP greater than 90 and/or map above 60. Continue amiodarone to help maintain sinus rhythm Vent management as per pulmonary Would hold all patient's antihypertensives Fluid management via hemodialysis as per nephrology Antibiotics as per infectious disease Continue aspirin and statin therapy if no contraindication Consultation Date/Type/Reason Admit Date/Time January 13, 2019 at 00:07 Initial Consult Date 01/15/19 Type of Consult Cardiology Date/Time of Note DATE: 01/19/19 TIME: 14:35 24 HR Interval Summary Free Text/Dictation Patient seen and examined Subjective hx not possible: pt critical status Exam/Review of Systems Vital Signs Vitals Vital Signs Date Temp Pulse Resp B/P (MAP) Pulse Ox O2 O2 Flow FiO2 Time Delivery Rate 01/19/19 85 22 107/36 97 Mechanical 13:00 (59) Ventilator 01/19/19 98.9 12:00 01/19/19 40 08:15 Intake and Output 01/18/19 01/18/19 01/19/19 1414:59 22:59 06:59 IntakeIntake Total 480.79 ml 726.80 ml 418.425 ml OutputOutput Total 1700 ml 0 ml 0 ml BalanceBalance -1219.21 ml 726.80 ml 418.425 ml Exam Exam Intubated and sedated, no apparent distress Head: normocephalic ENMT: intubated Respiratory: other (Coarse breath sounds bilaterally, no wheezing) Cardiovascular: regular rate and rhythm (S1-S2 heard) Gastrointestinal: soft, bowel sounds, other (No grimacing with palpation) Extremities: edema (Trace) Labs Result Diagram: 01/19/19 0500 01/19/19 0500 Results 24hrs Laboratory Tests Test 01/18/19 17:58 01/18/19 20:51 01/19/19 01:14 01/19/19 05:00 Bedside Glucose 177 125 130 White Blood Count 18.5 H Red Blood Count 2.58 L Hemoglobin 8.1 L Hematocrit 25.8 L Mean Corpuscular Volume 100.0 Mean Corpuscular 31.4 Hemoglobin Mean Corpuscular 31.4 L Hemoglobin Concent Red Cell Distribution 14.9 H Width Platelet Count 71 #L Mean Platelet Volume 12.3 H Immature Granulocytes % 2.100 H Neutrophils % Segmented Neutrophils 79 H % (Manual) Band Neutrophils % 3 (Manual) Lymphocytes % Lymphocytes % (Manual) 5 L Monocytes % Monocytes % (Manual) 4 Eosinophils % Eosinophils % (Manual) 5 Basophils % Basophils % (Manual) 2 Myelocytes % (Manual) 2 H Nucleated Red Blood 0.1 H Cells % Immature Granulocytes # 0.390 H Neutrophils # Neutrophils # (Manual) 14.7 H Band Neutrophils # 0.5 Lymphocytes (Manual) 0.9 Lymphocytes # Monocytes # Monocytes # (Manual) 0.7 Eosinophils # Basophils # Basophils # (Manual) 0.3 H Myelocytes # 0.3 H Nucleated Red Blood Cells # Platelet Estimate DECREASED Giant Platelets 2 H Polychromasia 1+ Poikilocytosis 2+ Anisocytosis 2+ Macrocytosis 1+ Spherocytes 1+ Sodium Level 139 Potassium Level 4.1 Chloride Level 104 Carbon Dioxide Level 25 Anion Gap 10 Blood Urea Nitrogen 24 H Creatinine 3.03 #H Est Glomerular Filtrat Rate mL/min Glucose Level 132 Calcium Level 8.6 Total Bilirubin 6.7 H Direct Bilirubin 5.80 H Indirect Bilirubin 0.9 Aspartate Amino 124 H Transf (AST/SGOT) Alanine 44 Aminotransferase (ALT/SG PT) Alkaline Phosphatase 225 H Total Protein 4.9 L Albumin 2.3 L Test 01/19/19 05:27 01/19/19 09:56 01/19/19 13:37 Bedside Glucose 141 128 164 Medications Medications Current Medications Vancomycin HCl (Vanco Iv Per Pharmacy) VANCOMYCIN PER PHARMACY PER PROTOCOL XX ; Start 01/13/19 at 02:00 IV Flush (NS 3 ml) 3 ml PER PROTOCOL IV ; Start 01/13/19 at 02:00 Acetaminophen (Tylenol Tab) 650 mg Q6H PRN PO .PAIN 1-3 OR TEMP Last administered on 01/18/19at 08:28; Admin Dose 650 MG; Start 01/13/19 at 02:00 Acetaminophen/ Hydrocodone Bitart ([place] (5/325)) 1 tab Q6H PRN PO .PAIN 4-6 Last administered on 01/15/19at 13:40; Admin Dose 1 TAB; Start 01/13/19 at 02:00 Docusate Sodium (Colace) 100 mg Q12H PRN PO .CONSTIPATION; Start 01/13/19 at 02:00 Bisacodyl (Dulcolax) 5 mg DAILY PRN PO .CONSTIPATION; Start 01/13/19 at 02:00 Heparin Sodium (Porcine) (Heparin (5000 Units/1ml)) 5,000 unit Q8 SC Last administered on 01/19/19at 05:29; Admin Dose 5,000 UNIT; Start 01/13/19 at 06:00; Status Hold Atorvastatin Calcium (Lipitor) 40 mg DAILY@21 PO Last administered on 01/18/19at 20:53; Admin Dose 40 MG; Start 01/13/19 at 21:00 Carvedilol (Coreg) 12.5 mg BID PO ; Start 01/13/19 at 09:00; Status Hold Ferrous Sulfate (Ferrous Sulfate (Ec)) 325 mg BID PO Last administered on 01/19/19at 09:41; Admin Dose 325 MG; Start 01/13/19 at 09:00 Folic Acid (Folic Acid) 1 mg DAILY PO Last administered on 01/19/19at 09:41; Admin Dose 1 MG; Start 01/13/19 at 09:00 Insulin Glargine (Lantus) 20 units QHS SC Last administered on 01/14/19at 22:04; Admin Dose 20 UNITS; Start 01/13/19 at 21:00; Status Hold Aspirin (Aspirin) 81 mg DAILY PO Last administered on 01/19/19at 09:40; Admin Dose 81 MG; Start 01/13/19 at 11:00 Miscellaneous Information 1 ea NOTE XX ; Start 01/13/19 at 15:30 Glucose (Glutose) 15 gm Q15M PRN PO DECREASED GLUCOSE; Start 01/13/19 at 15:30 Glucose (Glutose) 22.5 gm Q15M PRN PO DECREASED GLUCOSE; Start 01/13/19 at 15:30 Dextrose (D50w Syringe) 25 ml Q15M PRN IV DECREASED GLUCOSE; Start 01/13/19 at 15:30 Dextrose (D50w Syringe) 50 ml Q15M PRN IV DECREASED GLUCOSE; Start 01/13/19 at 15:30 Glucagon (Glucagen) 1 mg Q15M PRN IM DECREASED GLUCOSE; Start 01/13/19 at 15:30 Glucose (Glutose) 15 gm Q15M PRN BUCCAL DECREASED GLUCOSE; Start 01/13/19 at 15:30 Epoetin Cam-epbx (Retacrit (Esrd)) 4,000 unit TuThSa@1700 SC Last administered on 01/17/19 20:38; Admin Dose 4,000 UNIT; Start 01/14/19 at 17:00 Levalbuterol (Xopenex Neb) 1.25 mg Q4H RESP THERAPY PRN HHN dyspnea; Start 01/14/19 at 19:00 Fentanyl 100 ml @ 5 mls/hr TITRATE IV Last administered on 01/18/19 21:11; Admin Dose 5 MLS/HR; Start 01/15/19 at 17:30 Meropenem/Sodium Chloride 50 ml @ 100 mls/hr Q12H IVPB Last administered on 01/19/19 05:28; Admin Dose 100 MLS/HR; Start 01/15/19 at 17:30 Norepinephrine 250 ml @ 1.875 mls/ hr TITRATE IV Last administered on 01/19/19 13:46; Admin Dose 28.125 MLS/HR; Start 01/15/19 at 17:30 Insulin Aspart (Novolog Insulin Pen) NOVOLOG *MILD* ALGORITHM Q4 SC Last administered on 01/19/19 13:55; Admin Dose 1 UNIT; Start 01/15/19 at 17:55 Ipratropium [place] (Atrovent Hfa) 4 puff Q6H RESP THERAPY INH Last administered on 01/19/19 07:56; Admin Dose 4 PUFF; Start 01/15/19 at 20:00 Albuterol (Ventolin Hfa) 4 puff Q6H RESP THERAPY INH Last administered on 01/19/19 07:56; Admin Dose 4 PUFF; Start 01/15/19 at 20:00 Famotidine (Pepcid Iv) 20 mg Q24H IV Last administered on 01/19/19 05:29; Admin Dose 20 MG; Start 01/16/19 at 06:00 Propofol 100 ml @ 2.46 mls/hr Q12H IV Last administered on 01/18/19 00:27; Admin Dose 9.84 MLS/HR; Start 01/15/19 at 23:00 Vasopressin 60 unit/Dextrose 60 ml @ 1.2 mls/hr Q12H IV Last administered on 05:05; Admin Dose 2.4 MLS/HR; Start 01/16/19 at 02:30 Phenylephrine HCl 250 ml @ 75 mls/hr TITRATE IV ; Start 01/16/19 at 10:30 Caspofungin 35 mg/ Sodium Chloride 250 ml @ 250 mls/hr Q24H IVPB Last administered on 01/18/19 15:40; Admin Dose 250 MLS/HR; Start 01/17/19 at 15:00 Docusate Sodium (Colace Liquid Cup) 100 mg BID NGT Last administered on 01/19/19 09:40; Admin Dose 100 MG; Start 01/17/19 at 21:00 Collagenase (Santyl) 1 applic BID TOP Last administered on 01/19/19 09:51; Admin Dose 1 APPLIC; Start 01/17/19 at 21:00 Dexmedetomidine HCl 200 mcg/ Sodium Chloride 50 ml @ 4.1 mls/hr TITRATE IV Last administered on 01/19/19 06:46; Admin Dose 4.1 MLS/HR; Start 01/18/19 at 08:00 Metoclopramide HCl (Reglan) 5 mg Q6H IV Last administered on 01/19/19 09:38; Admin Dose 5 MG; Start 01/18/19 at 14:00 Albumin Human 100 ml @ 100 mls/hr DURING DIALYSIS PRN IV BLOOD PRESSURE SUPPORT Last administered on 01/18/19 11:21; Admin Dose 100 MLS/HR; Start 01/18/19 at 11:30 Lactulose (Enulose) 20 gm DAILY PO Last administered on 01/19/19 09:38; Admin Dose 20 GM; Start 01/19/19 at 09:00 Amiodarone HCl (Cordarone) 200 mg TID PO Last administered on 01/19/19 13:38; Admin Dose 200 MG; Start 01/18/19 at 21:00 Metronidazole 100 ml @ 100 mls/hr Q8 IVPB Last administered on 01/19/19 05:28; Admin Dose 100 MLS/HR; Start 01/18/19 at 16:00 Wilfred Decker DO Jan 19, 2019 14:36
[2019-01-19] MEDS: CASPOFUNGIN 35 MG in SOD CHLORIDE 0.9% 250 ML IVPB SCH (15:45)
--- NOTE | 2019-01-19 15:57 | PN ---
Date/Time of Note Date/Time of Note DATE: 01/19/19 TIME: 15:48 Assessment/Plan VTE Prophylaxis Risk score (from Ns)>0 risk: 11 SCD applied (from Ns): Yes Pharmacological prophylaxis: other (scds) Lines/Catheters IV Catheter Type (from [facility] Central Line Central line still needed: Yes (meds) Urinary Cath still in place: No Assessment/Plan Hospital Course Assessment: Elevated LFTs with direct hyperbilirubinemia -Hepatitis serologies negative -No biliary dilatation, on CT scan -ASMA/AMA- negative -SAÚL positive Imaging concerning for cirrhosis -Mild ascites -Thrombocytopenia -Coagulopathy Normocytic anemia Mild diffuse colitis on imaging - no diarrhea -KUB- no obstruction -CT- No bowel obstruction. Leukocytosis- trending down Healthcare associated pneumonia Hypoxic respiratory failure -intubated on MV NSTEMI, type II Coronary artery disease -History of CABG ESRD DM HTN Plan: KUB/CT with no evidence of obstruction will increase Reglan to 10 mg OTC Lactulose BID and mineral oil enema x1 MRCP when patient stable to rule out common bile duct obstruction versus hepatocellular disease Trend LFTs Supportive care Patient seen in collaboration with Dr. Resendez Subjective: Course reviewed with nursing staff Patient interviewed and examined All labs, imaging and other results reviewed Patient remains intubate din ICU, no bm as of yet When stable will proceed with MRCP. No significant change in overall status PHYSICAL EXAMINATION: GENERAL: Intubated, sedation, on pressors, jaundice, OG in place. SKIN: No lesions, CHEST: Inspection within normal limits. CARDIOVASCULAR: Heart: Regular rate and rhythm RESPIRATORY: Lungs clear to auscultation and percussion, no wheezing, no rubs GASTROINTESTINAL AND LIVER: Abdomen: Soft, non tenderness, non-distended, no hernias, no masses, no organomegaly, no ascites, no guarding, no rebound tenderness, hypoactive bowel sounds. Rectal: Deferred. EXTREMITIES: No cyanosis, clubbing or edema. Result Diagram: 01/19/19 0500 01/19/19 0500 Results 24hrs Laboratory Tests Test 01/18/19 17:58 01/18/19 20:51 01/19/19 01:14 01/19/19 05:00 Bedside Glucose 177 125 130 White Blood Count 18.5 H Red Blood Count 2.58 L Hemoglobin 8.1 L Hematocrit 25.8 L Mean Corpuscular Volume 100.0 Mean Corpuscular 31.4 Hemoglobin Mean Corpuscular 31.4 L Hemoglobin Concent Red Cell Distribution 14.9 H Width Platelet Count 71 #L Mean Platelet Volume 12.3 H Immature Granulocytes % 2.100 H Neutrophils % Segmented Neutrophils 79 H % (Manual) Band Neutrophils % 3 (Manual) Lymphocytes % Lymphocytes % (Manual) 5 L Monocytes % Monocytes % (Manual) 4 Eosinophils % Eosinophils % (Manual) 5 Basophils % Basophils % (Manual) 2 Myelocytes % (Manual) 2 H Nucleated Red Blood 0.1 H Cells % Immature Granulocytes # 0.390 H Neutrophils # Neutrophils # (Manual) 14.7 H Band Neutrophils # 0.5 Lymphocytes (Manual) 0.9 Lymphocytes # Monocytes # Monocytes # (Manual) 0.7 Eosinophils # Basophils # Basophils # (Manual) 0.3 H Myelocytes # 0.3 H Nucleated Red Blood Cells # Platelet Estimate DECREASED Giant Platelets 2 H Polychromasia 1+ Poikilocytosis 2+ Anisocytosis 2+ Macrocytosis 1+ Spherocytes 1+ Sodium Level 139 Potassium Level 4.1 Chloride Level 104 Carbon Dioxide Level 25 Anion Gap 10 Blood Urea Nitrogen 24 H Creatinine 3.03 #H Est Glomerular Filtrat Rate mL/min Glucose Level 132 Calcium Level 8.6 Total Bilirubin 6.7 H Direct Bilirubin 5.80 H Indirect Bilirubin 0.9 Aspartate Amino 124 H Transf (AST/SGOT) Alanine 44 Aminotransferase (ALT/SG PT) Alkaline Phosphatase 225 H Total Protein 4.9 L Albumin 2.3 L Test 01/19/19 05:27 01/19/19 09:56 01/19/19 13:37 Bedside Glucose 141 128 164 Exam/Review of Systems Exam Vitals Vital Signs Date Temp Pulse Resp B/P (MAP) Pulse Ox O2 O2 Flow FiO2 Time Delivery Rate 01/19/19 85 22 107/36 97 Mechanical 13:00 (59) Ventilator 01/19/19 98.9 12:00 01/19/19 40 08:15 Intake and Output 01/18/19 01/18/19 01/19/19 1515:00 23:00 07:00 IntakeIntake Total 386.58 ml 742.45 ml 406.675 ml OutputOutput Total 1700 ml 0 ml 0 ml BalanceBalance -1313.42 ml 742.45 ml 406.675 ml Results Results 24hrs Laboratory Tests Test 01/18/19 17:58 01/18/19 20:51 01/19/19 01:14 01/19/19 05:00 Bedside Glucose 177 125 130 White Blood Count 18.5 H Red Blood Count 2.58 L Hemoglobin 8.1 L Hematocrit 25.8 L Mean Corpuscular Volume 100.0 Mean Corpuscular 31.4 Hemoglobin Mean Corpuscular 31.4 L Hemoglobin Concent Red Cell Distribution 14.9 H Width Platelet Count 71 #L Mean Platelet Volume 12.3 H Immature Granulocytes % 2.100 H Neutrophils % Segmented Neutrophils 79 H % (Manual) Band Neutrophils % 3 (Manual) Lymphocytes % Lymphocytes % (Manual) 5 L Monocytes % Monocytes % (Manual) 4 Eosinophils % Eosinophils % (Manual) 5 Basophils % Basophils % (Manual) 2 Myelocytes % (Manual) 2 H Nucleated Red Blood 0.1 H Cells % Immature Granulocytes # 0.390 H Neutrophils # Neutrophils # (Manual) 14.7 H Band Neutrophils # 0.5 Lymphocytes (Manual) 0.9 Lymphocytes # Monocytes # Monocytes # (Manual) 0.7 Eosinophils # Basophils # Basophils # (Manual) 0.3 H Myelocytes # 0.3 H Nucleated Red Blood Cells # Platelet Estimate DECREASED Giant Platelets 2 H Polychromasia 1+ Poikilocytosis 2+ Anisocytosis 2+ Macrocytosis 1+ Spherocytes 1+ Sodium Level 139 Potassium Level 4.1 Chloride Level 104 Carbon Dioxide Level 25 Anion Gap 10 Blood Urea Nitrogen 24 H Creatinine 3.03 #H Est Glomerular Filtrat Rate mL/min Glucose Level 132 Calcium Level 8.6 Total Bilirubin 6.7 H Direct Bilirubin 5.80 H Indirect Bilirubin 0.9 Aspartate Amino 124 H Transf (AST/SGOT) Alanine 44 Aminotransferase (ALT/SG PT) Alkaline Phosphatase 225 H Total Protein 4.9 L Albumin 2.3 L Test 01/19/19 05:27 01/19/19 09:56 01/19/19 13:37 Bedside Glucose 141 128 164 Medications Medication Current Medications Vancomycin HCl (Vanco Iv Per Pharmacy) VANCOMYCIN PER PHARMACY PER PROTOCOL XX ; Start 01/13/19 at 02:00 IV Flush (NS 3 ml) 3 ml PER PROTOCOL IV ; Start 01/13/19 at 02:00 Acetaminophen (Tylenol Tab) 650 mg Q6H PRN PO .PAIN 1-3 OR TEMP Last administered on 6/5/19at 08:28; Admin Dose 650 MG; Start 01/13/19 at 02:00 Acetaminophen/ Hydrocodone Bitart ([place] (5/325)) 1 tab Q6H PRN PO .PAIN 4-6 Last administered on 01/15/19 13:40; Admin Dose 1 TAB; Start 01/13/19 at 02:00 Docusate Sodium (Colace) 100 mg Q12H PRN PO .CONSTIPATION; Start 01/13/19 at 02:00 Bisacodyl (Dulcolax) 5 mg DAILY PRN PO .CONSTIPATION; Start 01/13/19 at 02:00 Heparin Sodium (Porcine) (Heparin (5000 Units/1ml)) 5,000 unit Q8 SC Last administered on 01/19/19 05:29; Admin Dose 5,000 UNIT; Start 01/13/19 at 06:00; Status Hold Atorvastatin Calcium (Lipitor) 40 mg DAILY@21 PO Last administered on 01/18/19 20:53; Admin Dose 40 MG; Start 01/13/19 at 21:00 Carvedilol (Coreg) 12.5 mg BID PO ; Start 01/13/19 at 09:00; Status Hold Ferrous Sulfate (Ferrous Sulfate (Ec)) 325 mg BID PO Last administered on 01/19/19 09:41; Admin Dose 325 MG; Start 01/13/19 at 09:00 Folic Acid (Folic Acid) 1 mg DAILY PO Last administered on 01/19/19 09:41; Admin Dose 1 MG; Start 01/13/19 at 09:00 Insulin Glargine (Lantus) 20 units QHS SC Last administered on 01/14/19 22:04; Admin Dose 20 UNITS; Start 01/13/19 at 21:00; Status Hold Aspirin (Aspirin) 81 mg DAILY PO Last administered on 01/19/19 09:40; Admin Dose 81 MG; Start 01/13/19 at 11:00 Miscellaneous Information 1 ea NOTE XX ; Start 01/13/19 at 15:30 Glucose (Glutose) 15 gm Q15M PRN PO DECREASED GLUCOSE; Start 01/13/19 at 15:30 Glucose (Glutose) 22.5 gm Q15M PRN PO DECREASED GLUCOSE; Start 01/13/19 at 15:30 Dextrose (D50w Syringe) 25 ml Q15M PRN IV DECREASED GLUCOSE; Start 01/13/19 at 15:30 Dextrose (D50w Syringe) 50 ml Q15M PRN IV DECREASED GLUCOSE; Start 01/13/19 at 15:30 Glucagon (Glucagen) 1 mg Q15M PRN IM DECREASED GLUCOSE; Start 01/13/19 at 15:30 Glucose (Glutose) 15 gm Q15M PRN BUCCAL DECREASED GLUCOSE; Start 01/13/19 at 15:30 Epoetin Cam-epbx (Retacrit (Esrd)) 4,000 unit TuThSa@1700 SC Last administered on 01/17/19 20:38; Admin Dose 4,000 UNIT; Start 01/14/19 at 17:00 Levalbuterol (Xopenex Neb) 1.25 mg Q4H RESP THERAPY PRN HHN dyspnea; Start 01/14/19 at 19:00 Fentanyl 100 ml @ 5 mls/hr TITRATE IV Last administered on 01/18/19 21:11; Admin Dose 5 MLS/HR; Start 01/15/19 at 17:30 Meropenem/Sodium Chloride 50 ml @ 100 mls/hr Q12H IVPB Last administered on 01/19/19 05:28; Admin Dose 100 MLS/HR; Start 01/15/19 at 17:30 Norepinephrine 250 ml @ 1.875 mls/ hr TITRATE IV Last administered on 01/19/19 13:46; Admin Dose 28.125 MLS/HR; Start 01/15/19 at 17:30 Insulin Aspart (Novolog Insulin Pen) NOVOLOG *MILD* ALGORITHM Q4 SC Last administered on 01/19/19 13:55; Admin Dose 1 UNIT; Start 01/15/19 at 17:55 Ipratropium [place] (Atrovent Hfa) 4 puff Q6H RESP THERAPY INH Last administered on 01/19/19 15:37; Admin Dose 4 PUFF; Start 01/15/19 at 20:00 Albuterol (Ventolin Hfa) 4 puff Q6H RESP THERAPY INH Last administered on 01/19/19 15:36; Admin Dose 4 PUFF; Start 01/15/19 at 20:00 Famotidine (Pepcid Iv) 20 mg Q24H IV Last administered on 01/19/19 05:29; Admin Dose 20 MG; Start 01/16/19 at 06:00 Propofol 100 ml @ 2.46 mls/hr Q12H IV Last administered on 01/18/19 00:27; Admin Dose 9.84 MLS/HR; Start 01/15/19 at 23:00 Vasopressin 60 unit/Dextrose 60 ml @ 1.2 mls/hr Q12H IV Last administered on 01/18/19 05:05; Admin Dose 2.4 MLS/HR; Start 01/16/19 at 02:30 Phenylephrine HCl 250 ml @ 75 mls/hr TITRATE IV ; Start 01/16/19 at 10:30 Caspofungin 35 mg/ Sodium Chloride 250 ml @ 250 mls/hr Q24H IVPB Last administered on 01/19/19 15:45; Admin Dose 250 MLS/HR; Start 01/17/19 at 15:00 Docusate Sodium (Colace Liquid Cup) 100 mg BID NGT Last administered on 01/19/19 09:40; Admin Dose 100 MG; Start 01/17/19 at 21:00 Collagenase (Santyl) 1 applic BID TOP Last administered on 01/19/19 09:51; Admin Dose 1 APPLIC; Start 01/17/19 at 21:00 Dexmedetomidine HCl 200 mcg/ Sodium Chloride 50 ml @ 4.1 mls/hr TITRATE IV Last administered on 01/19/19 06:46; Admin Dose 4.1 MLS/HR; Start 01/18/19 at 08:00 Metoclopramide HCl (Reglan) 5 mg Q6H IV Last administered on 01/19/19 15:10; Admin Dose 5 MG; Start 01/18/19 at 14:00 Albumin Human 100 ml @ 100 mls/hr DURING DIALYSIS PRN IV BLOOD PRESSURE SUPPORT Last administered on 01/18/19 11:21; Admin Dose 100 MLS/HR; Start 01/18/19 at 11:30 Lactulose (Enulose) 20 gm DAILY PO Last administered on 01/19/19 09:38; Admin Dose 20 GM; Start 01/19/19 at 09:00 Amiodarone HCl (Cordarone) 200 mg TID PO Last administered on 01/19/19 13:38; Admin Dose 200 MG; Start 6/5/19 at 21:00 Metronidazole 100 ml @ 100 mls/hr Q8 IVPB Last administered on 01/19/19at 02:58; Admin Dose 100 MLS/HR; Start 01/18/19 at 16:00 EDELMIRA WILSON Jan 19, 2019 15:57
[2019-01-19] MEDS ORDERED: MINERAL OIL 133 ML ENEMA PR ONE (17:30)
[2019-01-19] MEDS: EPOETIN ALFA-EPBX (ESRD) 4,000 UNIT/ML VIAL SC SCH (18:05)
[2019-01-19] MEDS: LACTULOSE 30ML CUP PO SCH (20:10)
[2019-01-19] MEDS: ATORVASTATIN 40 MG TAB PO SCH (20:11)
[2019-01-20] VITALS (97 sets, daily range): BP systolic 72–138; BP diastolic 29–108; PULSE 81–143; RESP 12–32
[2019-01-20] MEDS: INSULIN ASPART [NOVOLOG] 3 ML PEN SC SCH ×6 (00:28→20:53)
[2019-01-20] MEDS: METOCLOPRAMIDE 10 MG INJ IV SCH ×4 (00:29→17:23)
[2019-01-20] MEDS: NORepinephrine 8MG/250 ML (PMX 250 ML IV SCH ×3 (00:31→21:31)
[2019-01-20] MEDS: ALBUTEROL HFA 8 GM INHALER INH SCH ×4 (01:46→20:03)
[2019-01-20] MEDS: IPRATROPIUM (HFA) 12.9 GM INHALER INH SCH ×4 (01:46→20:03)
[2019-01-20] MEDS: VASOPRESSIN 60 UNIT in DEXTROSE 5% 57 ML IV SCH ×2 (02:30→14:30)
[2019-01-20] MEDS: metroNIDAZOLE 500 MG/NS (PMX) 100 ML IVPB SCH (05:27)
[2019-01-20] MEDS: FAMOTIDINE 20 MG INJ IV SCH (05:27)
[2019-01-20] MEDS: MEROPENEM 500MG/50 ML (PMX) 50 ML IVPB SCH ×2 (05:27→17:19)
--- NOTE | 2019-01-20 08:55 | PN ---
Date/Time of Note Date/Time of Note DATE: 01/20/19 TIME: 08:50 Assessment/Plan VTE Prophylaxis Risk score (from Ns)>0 risk: 11 SCD applied (from Ns): Yes Pharmacological prophylaxis: NA/contraindicated Pharm contraindication: other (coagulopathy) Lines/Catheters [facility]from [facility] Central Line Central line still needed: Yes Urinary Cath still in place: No Assessment/Plan Hospital Course 1. Sepsis shock secondary to underlying healthcare associated pneumonia - continue abx - ID following 2. Hypoxic respiratory failure - multifactorial: pna, esrd - continue breathing tx - intubated - vent weaning as tolerated - continue HD - dinkey engine firer following - consider bronchoscopy if not improving 4. NSTEMI type II secondary to demand - Echo with preserved EF - troponin marker downward trended - airflight attendants supervisor following 5 Coronary artery disease: History of CABG - statin/asa 6. End-stage renal disease - continue HD - f/u nephro recs - correct electrolytes as needed 7. Diabetes mellitus - A1c 4.7 - Continue insulin regimen 8. Hypertension - hypotensive - on vasopressors - titrate down 9. Lower back pain with left leg weakness: Possibly resulting in sciatica. - Continue PT once more stable 10. elevated LFT - monitor LFT - is upward trending - abd imaging 01.17.19: - Nodular liver surface, concerning for cirrhosis. Mild ascites. - Findings compatible with mild diffuse colitis, as above. - Cholelithiasis, without evidence for cholecystitis. - Mild fat-containing bilateral inguinal hernias, without incarceration. Nasogastric tube tip is in the stomach. - GI consult - Plan for MRCP per GI once more stable DISPO.PLAN: continue abx and breathing tx. continue to titrate down vasopressors as tolerated. f/u pulmonary recs regarding worsening pna Discussed plan of care with Dr. Nieves More than 30 minutes spent on this encounter Result Diagram: 01/20/19 0400 01/20/19 0400 Results 24hrs Laboratory Tests Test 01/19/19 09:56 01/19/19 13:37 01/19/19 18:14 01/19/19 20:07 Bedside Glucose 128 164 154 150 Test 01/20/19 00:27 01/20/19 04:00 01/20/19 04:32 Bedside Glucose 133 119 White Blood Count 21.8 H Red Blood Count 2.67 L Hemoglobin 8.3 L Hematocrit 26.4 L Mean Corpuscular Volume 98.9 Mean Corpuscular 31.1 Hemoglobin Mean Corpuscular 31.4 L Hemoglobin Concent Red Cell Distribution 15.8 H Width Platelet Count 80 L Mean Platelet Volume 13.2 H Immature Granulocytes % 2.100 H Neutrophils % 84.3 H Segmented Neutrophils 82 H % (Manual) Band Neutrophils % 3 (Manual) Lymphocytes % 5.8 L Lymphocytes % (Manual) 6 L Reactive Lymphocytes 1 H % (Manual) Monocytes % 3.5 Monocytes % (Manual) 1 Eosinophils % 3.0 Eosinophils % (Manual) 4 Basophils % 1.3 Basophils % (Manual) 2 Promyelocytes % (Manual) 1 H Nucleated Red Blood 0.1 H Cells % Immature Granulocytes # 0.460 H Neutrophils # 18.3 H Neutrophils # (Manual) 18.0 H Band Neutrophils # 0.6 Lymphocytes (Manual) 1.3 Lymphocytes # 1.3 Reactive Lymphocytes # 0.2 H Monocytes # 0.8 Monocytes # (Manual) 0.2 L Eosinophils # 0.7 H Basophils # 0.3 H Basophils # (Manual) 0.4 H Promyelocytes # 0.2 H Nucleated Red Blood 0.0 Cells # Platelet Estimate DECREASED Giant Platelets 3 H Polychromasia 1+ Poikilocytosis 2+ Anisocytosis 2+ Macrocytosis 1+ Sodium Level 140 Potassium Level 4.3 Chloride Level 106 Carbon Dioxide Level 25 Anion Gap 9 Blood Urea Nitrogen 31 H Creatinine 3.86 H Est Glomerular Filtrat Rate mL/min Glucose Level 126 Calcium Level 8.1 L Total Bilirubin 6.6 H Direct Bilirubin 5.80 H Indirect Bilirubin 0.8 Aspartate Amino 137 H Transf (AST/SGOT) Alanine 38 Aminotransferase (ALT/SG PT) Alkaline Phosphatase 202 H Total Protein 5.0 L Albumin 2.1 L Subjective 24 Hr Interval Summary Free Text/Dictation remains intubated and sedated on presors Exam/Review of Systems Exam Vitals Vital Signs Date Temp Pulse Resp B/P (MAP) Pulse Ox O2 O2 Flow FiO2 Time Delivery Rate 01/20/19 82 08:00 01/20/19 22 107/36 98 06:45 (59) 01/20/19 Mechanical 06:00 Ventilator 01/20/19 40 05:40 01/20/19 99.3 04:00 Intake and Output 6/601/19/19 01/20/19 1515:00 23:00 07:00 IntakeIntake Total 372.225 ml 467.025 ml 281.25 ml OutputOutput Total 0 ml 0 ml BalanceBalance 372.225 ml 467.025 ml 281.25 ml Exam Constitutional: No alert, No oriented (intubated and sedated ) Eyes: icteric Respiratory: diminished/congested breath sounds (on mech vent ), Cardiac: other (regular rate ) Gastrointestinal: soft Genitourinary - Male: other (juarez catheter in place ) Neurological: No FILL PLANT OPERATOR II-XII intact, No nl mental status (intubated/sedated ) Skin: other (decubitus ulcer sacral area ) Results Results 24hrs Laboratory Tests Test 01/19/19 09:56 01/19/19 13:37 01/19/19 18:14 01/19/19 20:07 Bedside Glucose 128 164 154 150 Test 01/20/19 00:27 01/20/19 04:00 01/20/19 04:32 Bedside Glucose 133 119 White Blood Count 21.8 H Red Blood Count 2.67 L Hemoglobin 8.3 L Hematocrit 26.4 L Mean Corpuscular Volume 98.9 Mean Corpuscular 31.1 Hemoglobin Mean Corpuscular 31.4 L Hemoglobin Concent Red Cell Distribution 15.8 H Width Platelet Count 80 L Mean Platelet Volume 13.2 H Immature Granulocytes % 2.100 H Neutrophils % 84.3 H Segmented Neutrophils 82 H % (Manual) Band Neutrophils % 3 (Manual) Lymphocytes % 5.8 L Lymphocytes % (Manual) 6 L Reactive Lymphocytes 1 H % (Manual) Monocytes % 3.5 Monocytes % (Manual) 1 Eosinophils % 3.0 Eosinophils % (Manual) 4 Basophils % 1.3 Basophils % (Manual) 2 Promyelocytes % (Manual) 1 H Nucleated Red Blood 0.1 H Cells % Immature Granulocytes # 0.460 H Neutrophils # 18.3 H Neutrophils # (Manual) 18.0 H Band Neutrophils # 0.6 Lymphocytes (Manual) 1.3 Lymphocytes # 1.3 Reactive Lymphocytes # 0.2 H Monocytes # 0.8 Monocytes # (Manual) 0.2 L Eosinophils # 0.7 H Basophils # 0.3 H Basophils # (Manual) 0.4 H Promyelocytes # 0.2 H Nucleated Red Blood 0.0 Cells # Platelet Estimate DECREASED Giant Platelets 3 H Polychromasia 1+ Poikilocytosis 2+ Anisocytosis 2+ Macrocytosis 1+ Sodium Level 140 Potassium Level 4.3 Chloride Level 106 Carbon Dioxide Level 25 Anion Gap 9 Blood Urea Nitrogen 31 H Creatinine 3.86 H Est Glomerular Filtrat Rate mL/min Glucose Level 126 Calcium Level 8.1 L Total Bilirubin 6.6 H Direct Bilirubin 5.80 H Indirect Bilirubin 0.8 Aspartate Amino 137 H Transf (AST/SGOT) Alanine 38 Aminotransferase (ALT/SG PT) Alkaline Phosphatase 202 H Total Protein 5.0 L Albumin 2.1 L Medications Medication Current Medications Vancomycin HCl (Vanco Iv Per Pharmacy) VANCOMYCIN PER PHARMACY PER PROTOCOL XX ; Start 01/13/19 at 02:00 IV Flush (NS 3 ml) 3 ml PER PROTOCOL IV ; Start 01/13/19 at 02:00 Acetaminophen (Tylenol Tab) 650 mg Q6H PRN PO .PAIN 1-3 OR TEMP Last administered on 01/18/19at 08:28; Admin Dose 650 MG; Start 01/13/19 at 02:00 Acetaminophen/ Hydrocodone Bitart ([place] (5/325)) 1 tab Q6H PRN PO .PAIN 4-6 Last administered on 01/15/19at 13:40; Admin Dose 1 TAB; Start 01/13/19 at 02:00 Docusate Sodium (Colace) 100 mg Q12H PRN PO .CONSTIPATION; Start 01/13/19 at 02:00 Bisacodyl (Dulcolax) 5 mg DAILY PRN PO .CONSTIPATION; Start 01/13/19 at 02:00 Heparin Sodium (Porcine) (Heparin (5000 Units/1ml)) 5,000 unit Q8 SC Last administered on 01/19/19at 05:29; Admin Dose 5,000 UNIT; Start 01/13/19 at 06:00; Status Hold Atorvastatin Calcium (Lipitor) 40 mg DAILY@21 PO Last administered on 01/19/19at 20:11; Admin Dose 40 MG; Start 01/13/19 at 21:00 Carvedilol (Coreg) 12.5 mg BID PO ; Start 01/13/19 at 09:00; Status Hold Ferrous Sulfate (Ferrous Sulfate (Ec)) 325 mg BID PO Last administered on 01/19/19at 20:11; Admin Dose 325 MG; Start 01/13/19 at 09:00 Folic Acid (Folic Acid) 1 mg DAILY PO Last administered on 01/19/19at 09:41; Admin Dose 1 MG; Start 01/13/19 at 09:00 Insulin Glargine (Lantus) 20 units QHS SC Last administered on 01/14/19at 22:04; Admin Dose 20 UNITS; Start 01/13/19 at 21:00; Status Hold Aspirin (Aspirin) 81 mg DAILY PO Last administered on 01/19/19at 09:40; Admin Dose 81 MG; Start 01/13/19 at 11:00 Miscellaneous Information 1 ea NOTE XX ; Start 01/13/19 at 15:30 Glucose (Glutose) 15 gm Q15M PRN PO DECREASED GLUCOSE; Start 01/13/19 at 15:30 Glucose (Glutose) 22.5 gm Q15M PRN PO DECREASED GLUCOSE; Start 01/13/19 at 15:30 Dextrose (D50w Syringe) 25 ml Q15M PRN IV DECREASED GLUCOSE; Start 01/13/19 at 15:30 Dextrose (D50w Syringe) 50 ml Q15M PRN IV DECREASED GLUCOSE; Start 01/13/19 at 15:30 Glucagon (Glucagen) 1 mg Q15M PRN IM DECREASED GLUCOSE; Start 01/13/19 at 15:30 Glucose (Glutose) 15 gm Q15M PRN BUCCAL DECREASED GLUCOSE; Start 01/13/19 at 15:30 Epoetin Cam-epbx (Retacrit (Esrd)) 4,000 unit TuThSa@1700 SC Last administered on 01/19/19at 18:05; Admin Dose 4,000 UNIT; Start 01/14/19 at 17:00 Levalbuterol (Xopenex Neb) 1.25 mg Q4H RESP THERAPY PRN HHN dyspnea; Start 01/14/19 at 19:00 Fentanyl 100 ml @ 5 mls/hr TITRATE IV Last administered on 01/18/19at 21:11; Admin Dose 5 MLS/HR; Start 01/15/19 at 17:30 Meropenem/Sodium Chloride 50 ml @ 100 mls/hr Q12H IVPB Last administered on 01/20/19at 05:27; Admin Dose 100 MLS/HR; Start 01/15/19 at 17:30 Norepinephrine 250 ml @ 1.875 mls/ hr TITRATE IV Last administered on 01/20/19 00:31; Admin Dose 18.75 MLS/HR; Start 01/15/19 at 17:30 Insulin Aspart (Novolog Insulin Pen) NOVOLOG *MILD* ALGORITHM Q4 SC Last administered on 01/19/19 20:16; Admin Dose 1 UNIT; Start 01/15/19 at 17:55 Ipratropium [place] (Atrovent Hfa) 4 puff Q6H RESP THERAPY INH Last administered on 01/20/19 01:46; Admin Dose 4 PUFF; Start 01/15/19 at 20:00 Albuterol (Ventolin Hfa) 4 puff Q6H RESP THERAPY INH Last administered on 01/20/19 01:46; Admin Dose 4 PUFF; Start 01/15/19 at 20:00 Famotidine (Pepcid Iv) 20 mg Q24H IV Last administered on 01/20/19 05:27; Admin Dose 20 MG; Start 01/16/19 at 06:00 Propofol 100 ml @ 2.46 mls/hr Q12H IV Last administered on 01/18/19 00:27; Admin Dose 9.84 MLS/HR; Start 01/15/19 at 23:00 Vasopressin 60 unit/Dextrose 60 ml @ 1.2 mls/hr Q12H IV Last administered on 01/18/19 05:05; Admin Dose 2.4 MLS/HR; Start 01/16/19 at 02:30 Phenylephrine HCl 250 ml @ 75 mls/hr TITRATE IV ; Start 01/16/19 at 10:30 Caspofungin 35 mg/ Sodium Chloride 250 ml @ 250 mls/hr Q24H IVPB Last administered on 01/19/19 15:45; Admin Dose 250 MLS/HR; Start 01/17/19 at 15:00 Docusate Sodium (Colace Liquid Cup) 100 mg BID NGT Last administered on 01/19/19 20:10; Admin Dose 100 MG; Start 01/17/19 at 21:00 Collagenase (Santyl) 1 applic BID TOP Last administered on 01/19/19 20:11; Admin Dose 1 APPLIC; Start 01/17/19 at 21:00 Dexmedetomidine HCl 200 mcg/ Sodium Chloride 50 ml @ 4.1 mls/hr TITRATE IV Last administered on 01/19/19 06:46; Admin Dose 4.1 MLS/HR; Start 01/18/19 at 08:00 Albumin Human 100 ml @ 100 mls/hr DURING DIALYSIS PRN IV BLOOD PRESSURE SUPPORT Last administered on 01/18/19 11:21; Admin Dose 100 MLS/HR; Start 01/18/19 at 11:30 Amiodarone HCl (Cordarone) 200 mg TID PO Last administered on 01/19/19 20:11; Admin Dose 200 MG; Start 01/18/19 at 21:00 Metronidazole 100 ml @ 100 mls/hr Q8 IVPB Last administered on 01/20/19 05:27; Admin Dose 100 MLS/HR; Start 01/18/19 at 16:00 Lactulose (Enulose) 20 gm BID PO Last administered on 01/19/19 20:10; Admin Dose 20 GM; Start 01/19/19 at 21:00 Metoclopramide HCl (Reglan) 5 mg Q6 IV Last administered on 01/20/19 05:27; Admin Dose 5 MG; Start 01/19/19 at 20:00 SULEIMAN BOYD NP Jan 20, 2019 08:55
[2019-01-20] MEDS: AMIODARONE 200 MG TAB PO SCH ×4 (09:00→20:50)
--- NOTE | 2019-01-20 10:17 | CONS ---
Assessment/Plan Assessment/Plan Assessment/Plan (Daily) ssessment/Plan (Daily) 1 End-stage renal disease on hemodialysis. hemodialysis Wednesday, and Wednesday via left arm AV fistula 2. Septic shock , likely secondary to pneumonia/ cholecystitis. with elevated bilirubin , cx positive for yeast 3. Elevated trop 4. Hypokalemia, resolved. 5. Leukocytosis. 6. Shortness of breath, cough, weakness, leukocytosis of 26.8, likely secondary to pneumonia. with hypoxic and hypercapnic resp failure 7. Hyperbilirubinemia, abnormal liver function tests. 8. respiratory failure, likely secondary to pneumonia. 9. Hypertension, currently hypotensive 10. Dyslipidemia. 11. Diabetes. 12. Anemia chronic disease 13. encephalopathy, ALOC 14 Respiratory failure s/p intubation 15 New onset AFIB 16 Abnormal LFT with elevated Bili/direct/alk phos and elevation of transaminases ? r/o obstruction Assessment/Plan (Daily) -on vent - off sedation> will hold off sedation and assess menalt status -Since we do not have the capability of CRRT here, trying to do slow hemodialysis today , now only on one pressor , will brian to be titrated up ivis - albumin prime beforer HD today -avoid nephrotoxic drugs -c/w Epogen after HD -cw vanco/meropenam/caspo/ flagyl per ID Consultation Date/Type/Reason Admit Date/Time January 13, 2019 at 00:07 Initial Consult Date 01/15/19 Date/Time of Note DATE: 01/20/19 TIME: 10:15 24 HR Interval Summary Free Text/Dictation Tried to open some eyes scleral icterus on levophed 10 40 % FI02 Exam/Review of Systems Exam Vitals Vital Signs Date Temp Pulse Resp B/P (MAP) Pulse Ox O2 O2 Flow FiO2 Time Delivery Rate 01/20/19 83 20 103/38 99 09:15 (59) 01/20/19 Mechanical 09:00 Ventilator 01/20/19 40 08:00 01/20/19 97.9 08:00 Intake and Output 01/19/19 01/19/19 01/20/19 1515:00 23:00 07:00 IntakeIntake Total 372.225 ml 467.025 ml 281.25 ml OutputOutput Total 0 ml 0 ml BalanceBalance 372.225 ml 467.025 ml 281.25 ml Exam ntubated , left arm AV fistula Head: normocephalic, scleral icterus++ Neck: supple Respiratory: diminished breath sounds Cardiovascular: regular rate and rhythm Gastrointestinal: soft, nl liver, spleen, non-tender, ascites, bowel sounds, distended, firm, hepatomegaly, mass, rebound or guarding, splenomegaly, surgical scars, tender, other (pos. Richter sign) Skin: other (pale) edema + Results Result Diagram: 01/20/19 0400 01/20/19 0400 Results 24hrs Laboratory Tests Test 01/19/19 13:37 01/19/19 18:14 01/19/19 20:07 01/20/19 00:27 Bedside Glucose 164 154 150 133 Test 01/20/19 04:00 01/20/19 04:32 White Blood Count 21.8 H Red Blood Count 2.67 L Hemoglobin 8.3 L Hematocrit 26.4 L Mean Corpuscular Volume 98.9 Mean Corpuscular 31.1 Hemoglobin Mean Corpuscular 31.4 L Hemoglobin Concent Red Cell Distribution 15.8 H Width Platelet Count 80 L Mean Platelet Volume 13.2 H Immature Granulocytes % 2.100 H Neutrophils % 84.3 H Segmented Neutrophils 82 H % (Manual) Band Neutrophils % 3 (Manual) Lymphocytes % 5.8 L Lymphocytes % (Manual) 6 L Reactive Lymphocytes 1 H % (Manual) Monocytes % 3.5 Monocytes % (Manual) 1 Eosinophils % 3.0 Eosinophils % (Manual) 4 Basophils % 1.3 Basophils % (Manual) 2 Promyelocytes % (Manual) 1 H Nucleated Red Blood 0.1 H Cells % Immature Granulocytes # 0.460 H Neutrophils # 18.3 H Neutrophils # (Manual) 18.0 H Band Neutrophils # 0.6 Lymphocytes (Manual) 1.3 Lymphocytes # 1.3 Reactive Lymphocytes # 0.2 H Monocytes # 0.8 Monocytes # (Manual) 0.2 L Eosinophils # 0.7 H Basophils # 0.3 H Basophils # (Manual) 0.4 H Promyelocytes # 0.2 H Nucleated Red Blood 0.0 Cells # Platelet Estimate DECREASED Giant Platelets 3 H Polychromasia 1+ Poikilocytosis 2+ Anisocytosis 2+ Macrocytosis 1+ Sodium Level 140 Potassium Level 4.3 Chloride Level 106 Carbon Dioxide Level 25 Anion Gap 9 Blood Urea Nitrogen 31 H Creatinine 3.86 H Est Glomerular Filtrat Rate mL/min Glucose Level 126 Calcium Level 8.1 L Total Bilirubin 6.6 H Direct Bilirubin 5.80 H Indirect Bilirubin 0.8 Aspartate Amino 137 H Transf (AST/SGOT) Alanine 38 Aminotransferase (ALT/SG PT) Alkaline Phosphatase 202 H Total Protein 5.0 L Albumin 2.1 L Bedside Glucose 119 Medications Medication Current Medications Vancomycin HCl (Vanco Iv Per Pharmacy) VANCOMYCIN PER PHARMACY PER PROTOCOL XX ; Start 01/13/19 at 02:00 IV Flush (NS 3 ml) 3 ml PER PROTOCOL IV ; Start 01/13/19 at 02:00 Acetaminophen (Tylenol Tab) 650 mg Q6H PRN PO .PAIN 1-3 OR TEMP Last admini stered on 01/18/19at 08:28; Admin Dose 650 MG; Start 01/13/19 at 02:00 Acetaminophen/ Hydrocodone Bitart ([place] (5/325)) 1 tab Q6H PRN PO .PAIN 4-6 Last administered on 01/15/19at 13:40; Admin Dose 1 TAB; Start 01/13/19 at 02:00 Docusate Sodium (Colace) 100 mg Q12H PRN PO .CONSTIPATION; Start 01/13/19 at 02:00 Bisacodyl (Dulcolax) 5 mg DAILY PRN PO .CONSTIPATION; Start 01/13/19 at 02:00 Heparin Sodium (Porcine) (Heparin (5000 Units/1ml)) 5,000 unit Q8 SC Last administered on 01/19/19at 05:29; Admin Dose 5,000 UNIT; Start 01/13/19 at 06:00; Status Hold Atorvastatin Calcium (Lipitor) 40 mg DAILY@21 PO Last administered on 01/19/19at 20:11; Admin Dose 40 MG; Start 01/13/19 at 21:00 Carvedilol (Coreg) 12.5 mg BID PO ; Start 01/13/19 at 09:00; Status Hold Ferrous Sulfate (Ferrous Sulfate (Ec)) 325 mg BID PO Last administered on 01/19/19at 20:11; Admin Dose 325 MG; Start 01/13/19 at 09:00 Folic Acid (Folic Acid) 1 mg DAILY PO Last administered on 01/19/19at 09:41; Admin Dose 1 MG; Start 01/13/19 at 09:00 Insulin Glargine (Lantus) 20 units QHS SC Last administered on 01/14/19at 22:04; Admin Dose 20 UNITS; Start 01/13/19 at 21:00; Status Hold Aspirin (Aspirin) 81 mg DAILY PO Last administered on 01/19/19at 09:40; Admin Dose 81 MG; Start 01/13/19 at 11:00 Miscellaneous Information 1 ea NOTE XX ; Start 01/13/19 at 15:30 Glucose (Glutose) 15 gm Q15M PRN PO DECREASED GLUCOSE; Start 01/13/19 at 15:30 Glucose (Glutose) 22.5 gm Q15M PRN PO DECREASED GLUCOSE; Start 01/13/19 at 15:30 Dextrose (D50w Syringe) 25 ml Q15M PRN IV DECREASED GLUCOSE; Start 01/13/19 at 15:30 Dextrose (D50w Syringe) 50 ml Q15M PRN IV DECREASED GLUCOSE; Start 01/13/19 at 15:30 Glucagon (Glucagen) 1 mg Q15M PRN IM DECREASED GLUCOSE; Start 01/13/19 at 15:30 Glucose (Glutose) 15 gm Q15M PRN BUCCAL DECREASED GLUCOSE; Start 01/13/19 at 15:30 Epoetin Cam-epbx (Retacrit (Esrd)) 4,000 unit TuThSa@1700 SC Last administered on 01/19/19at 18:05; Admin Dose 4,000 UNIT; Start 01/14/19 at 17:00 Levalbuterol (Xopenex Neb) 1.25 mg Q4H RESP THERAPY PRN HHN dyspnea; Start 01/14/19 at 19:00 Fentanyl 100 ml @ 5 mls/hr TITRATE IV Last administered on 01/18/19at 21:11; Admin Dose 5 MLS/HR; Start 01/15/19 at 17:30 Meropenem/Sodium Chloride 50 ml @ 100 mls/hr Q12H IVPB Last administered on 01/20/19at 05:27; Admin Dose 100 MLS/HR; Start 01/15/19 at 17:30 Norepinephrine 250 ml @ 1.875 mls/ hr TITRATE IV Last administered on 01/20/19at 00:31; Admin Dose 18.75 MLS/HR; Start 01/15/19 at 17:30 Insulin Aspart (Novolog Insulin Pen) NOVOLOG *MILD* ALGORITHM Q4 SC Last administered on 01/19/19 20:16; Admin Dose 1 UNIT; Start 01/15/19 at 17:55 Ipratropium [place] (Atrovent Hfa) 4 puff Q6H RESP THERAPY INH Last administered on 01/20/19 10:11; Admin Dose 4 PUFF; Start 01/15/19 at 20:00 Albuterol (Ventolin Hfa) 4 puff Q6H RESP THERAPY INH Last administered on 01/20/19 10:11; Admin Dose 4 PUFF; Start 01/15/19 at 20:00 Famotidine (Pepcid Iv) 20 mg Q24H IV Last administered on 01/20/19 05:27; Admin Dose 20 MG; Start 01/16/19 at 06:00 Propofol 100 ml @ 2.46 mls/hr Q12H IV Last administered on 01/18/19 00:27; Admin Dose 9.84 MLS/HR; Start 01/15/19 at 23:00 Vasopressin 60 unit/Dextrose 60 ml @ 1.2 mls/hr Q12H IV Last administered on 01/18/19 05:05; Admin Dose 2.4 MLS/HR; Start 01/16/19 at 02:30 Phenylephrine HCl 250 ml @ 75 mls/hr TITRATE IV ; Start 01/16/19 at 10:30 Caspofungin 35 mg/ Sodium Chloride 250 ml @ 250 mls/hr Q24H IVPB Last administered on 01/19/19 15:45; Admin Dose 250 MLS/HR; Start 01/17/19 at 15:00 Docusate Sodium (Colace Liquid Cup) 100 mg BID NGT Last administered on 01/19/19 20:10; Admin Dose 100 MG; Start 01/17/19 at 21:00 Collagenase (Santyl) 1 applic BID TOP Last administered on 01/19/19 20:11; Admin Dose 1 APPLIC; Start 01/17/19 at 21:00 Dexmedetomidine HCl 200 mcg/ Sodium Chloride 50 ml @ 4.1 mls/hr TITRATE IV Last administered on 01/19/19 06:46; Admin Dose 4.1 MLS/HR; Start 01/18/19 at 0 8:00 Albumin Human 100 ml @ 100 mls/hr DURING DIALYSIS PRN IV BLOOD PRESSURE SUPPORT Last administered on 01/18/19 11:21; Admin Dose 100 MLS/HR; Start 01/18/19 at 11:30 Amiodarone HCl (Cordarone) 200 mg TID PO Last administered on 01/19/19 20:11; Admin Dose 200 MG; Start 01/18/19 at 21:00 Metronidazole 100 ml @ 100 mls/hr Q8 IVPB Last administered on 01/20/19 05:27; Admin Dose 100 MLS/HR; Start 01/18/19 at 16:00 Lactulose (Enulose) 20 gm BID PO Last administered on 01/19/19at 20:10; Admin Dose 20 GM; Start 01/19/19 at 21:00 Metoclopramide HCl (Reglan) 5 mg Q6 IV Last administered on 01/20/19 05:27; Admin Dose 5 MG; Start 01/19/19 at 20:00 JUAN NOLAND MD Jan 20, 2019 10:17
[2019-01-20] MEDS: ASPIRIN 81 MG TAB PO SCH (10:39)
[2019-01-20] MEDS: LACTULOSE 30ML CUP PO SCH ×2 (10:39→20:50)
[2019-01-20] MEDS: FOLIC ACID 1 MG TAB PO SCH (10:40)
[2019-01-20] MEDS: COLLAGENASE 5 GM (UD JAR) TOP SCH ×2 (10:40→20:52)
[2019-01-20] MEDS: DOCUSATE SODIUM 10 MG/ML (10ML CUP) NGT SCH ×2 (10:40→20:50)
[2019-01-20] MEDS: FERROUS SULFATE (EC) 325 MG TAB PO SCH ×2 (10:40→20:50)
[2019-01-20] MEDS: BALSAM PERU/CASTOR OIL 60 GM TUBE TOP SCH ×2 (10:47→20:51)
--- NOTE | 2019-01-20 10:53 | CONS ---
Consult Date/Type/Reason Admit Date/Time January 13, 2019 at 00:07 Initial Consult Date 01/15/19 Type of Consult Pulmonary Date/Time of Note DATE: 01/20/19 TIME: 10:46 Subjective Patient remains somnolent off sedation. Still requiring vasopressor support. Chest x-ray shows extensive bilateral infiltrates. FiO2 decreased to 40%. Objective Vital Signs Date Temp Pulse Resp B/P (MAP) Pulse Ox O2 O2 Flow FiO2 Time Delivery Rate 01/20/19 83 20 103/38 99 09:15 (59) 01/20/19 Mechanical 09:00 Ventilator 01/20/19 40 08:00 01/20/19 97.9 08:00 Intake and Output 01/19/19 01/19/19 01/20/19 1515:00 23:00 07:00 IntakeIntake Total 372.225 ml 467.025 ml 281.25 ml OutputOutput Total 0 ml 0 ml BalanceBalance 372.225 ml 467.025 ml 281.25 ml Exam GENERAL: Elderly gentleman orally intubated on mechanical ventilation VITAL SIGNS: per chart NECK: Supple. No JVD or lymphadenopathy. CARDIAC EXAM: S1, S2. No added sounds or murmurs. CHEST: Diminished air entry bilaterally ABDOMEN: Soft, nontender. No guarding or rebound. EXTREMITIES: No cyanosis, clubbing or edema. NEUROLOGIC: Generalized weakness. No focal deficits. Vent Setting Ventilator Support Mode: AC Fraction of Inspired Oxygen pe: 40 Positive End Expiratory Pressu: 5.0 Results/Medications Result Diagram: 01/20/19 0400 01/20/19 0400 Results 24 hrs Laboratory Tests Test 01/19/19 13:37 01/19/19 18:14 01/19/19 20:07 01/20/19 00:27 Bedside Glucose 164 154 150 133 Test 01/20/19 04:00 01/20/19 04:32 01/20/19 10:35 White Blood Count 21.8 H Red Blood Count 2.67 L Hemoglobin 8.3 L Hematocrit 26.4 L Mean Corpuscular Volume 98.9 Mean Corpuscular 31.1 Hemoglobin Mean Corpuscular 31.4 L Hemoglobin Concent Red Cell Distribution 15.8 H Width Platelet Count 80 L Mean Platelet Volume 13.2 H Immature Granulocytes % 2.100 H Neutrophils % 84.3 H Segmented Neutrophils 82 H % (Manual) Band Neutrophils % 3 (Manual) Lymphocytes % 5.8 L Lymphocytes % (Manual) 6 L Reactive Lymphocytes 1 H % (Manual) Monocytes % 3.5 Monocytes % (Manual) 1 Eosinophils % 3.0 Eosinophils % (Manual) 4 Basophils % 1.3 Basophils % (Manual) 2 Promyelocytes % (Manual) 1 H Nucleated Red Blood 0.1 H Cells % Immature Granulocytes # 0.460 H Neutrophils # 18.3 H Neutrophils # (Manual) 18.0 H Band Neutrophils # 0.6 Lymphocytes (Manual) 1.3 Lymphocytes # 1.3 Reactive Lymphocytes # 0.2 H Monocytes # 0.8 Monocytes # (Manual) 0.2 L Eosinophils # 0.7 H Basophils # 0.3 H Basophils # (Manual) 0.4 H Promyelocytes # 0.2 H Nucleated Red Blood 0.0 Cells # Platelet Estimate DECREASED Giant Platelets 3 H Polychromasia 1+ Poikilocytosis 2+ Anisocytosis 2+ Macrocytosis 1+ Sodium Level 140 Potassium Level 4.3 Chloride Level 106 Carbon Dioxide Level 25 Anion Gap 9 Blood Urea Nitrogen 31 H Creatinine 3.86 H Est Glomerular Filtrat Rate mL/min Glucose Level 126 Calcium Level 8.1 L Total Bilirubin 6.6 H Direct Bilirubin 5.80 H Indirect Bilirubin 0.8 Aspartate Amino 137 H Transf (AST/SGOT) Alanine 38 Aminotransferase (ALT/SG PT) Alkaline Phosphatase 202 H Total Protein 5.0 L Albumin 2.1 L Bedside Glucose 119 126 Medications Current Medications Vancomycin HCl (Vanco Iv Per Pharmacy) VANCOMYCIN PER PHARMACY PER PROTOCOL XX ; Start 01/13/19 at 02:00 IV Flush (NS 3 ml) 3 ml PER PROTOCOL IV ; Start 01/13/19 at 02:00 Acetaminophen (Tylenol Tab) 650 mg Q6H PRN PO .PAIN 1-3 OR TEMP Last administered on 01/18/19at 08:28; Admin Dose 650 MG; Start 01/13/19 at 02:00 Acetaminophen/ Hydrocodone Bitart ([place] (5/325)) 1 tab Q6H PRN PO .PAIN 4-6 Last administered on 01/15/19at 13:40; Admin Dose 1 TAB; Start 01/13/19 at 02:00 Docusate Sodium (Colace) 100 mg Q12H PRN PO .CONSTIPATION; Start 01/13/19 at 02:00 Bisacodyl (Dulcolax) 5 mg DAILY PRN PO .CONSTIPATION; Start 01/13/19 at 02:00 Heparin Sodium (Porcine) (Heparin (5000 Units/1ml)) 5,000 unit Q8 SC Last administered on 01/19/19at 05:29; Admin Dose 5,000 UNIT; Start 01/13/19 at 06:00; Status Hold Atorvastatin Calcium (Lipitor) 40 mg DAILY@21 PO Last administered on 01/19/19at 20:11; Admin Dose 40 MG; Start 01/13/19 at 21:00 Carvedilol (Coreg) 12.5 mg BID PO ; Start 01/13/19 at 09:00; Status Hold Ferrous Sulfate (Ferrous Sulfate (Ec)) 325 mg BID PO Last administered on 01/20/19 10:40; Admin Dose 325 MG; Start 01/13/19 at 09:00 Folic Acid (Folic Acid) 1 mg DAILY PO Last administered on 01/20/19at 10:40; Admin Dose 1 MG; Start 01/13/19 at 09:00 Insulin Glargine (Lantus) 20 units QHS SC Last administered on 01/14/19at 22:04; Admin Dose 20 UNITS; Start 01/13/19 at 21:00; Status Hold Aspirin (Aspirin) 81 mg DAILY PO Last administered on 01/20/19at 10:39; Admin Dose 81 MG; Start 01/13/19 at 11:00 Miscellaneous Information 1 ea NOTE XX ; Start 01/13/19 at 15:30 Glucose (Glutose) 15 gm Q15M PRN PO DECREASED GLUCOSE; Start 01/13/19 at 15:30 Glucose (Glutose) 22.5 gm Q15M PRN PO DECREASED GLUCOSE; Start 01/13/19 at 15:30 Dextrose (D50w Syringe) 25 ml Q15M PRN IV DECREASED GLUCOSE; Start 01/13/19 at 15:30 Dextrose (D50w Syringe) 50 ml Q15M PRN IV DECREASED GLUCOSE; Start 01/13/19 at 15:30 Glucagon (Glucagen) 1 mg Q15M PRN IM DECREASED GLUCOSE; Start 01/13/19 at 15:30 Glucose (Glutose) 15 gm Q15M PRN BUCCAL DECREASED GLUCOSE; Start 01/13/19 at 15:30 Epoetin Cam-epbx (Retacrit (Esrd)) 4,000 unit TuThSa@1700 SC Last administered on 01/19/19 18:05; Admin Dose 4,000 UNIT; Start 01/14/19 at 17:00 Levalbuterol (Xopenex Neb) 1.25 mg Q4H RESP THERAPY PRN HHN dyspnea; Start 01/14/19 at 19:00 Fentanyl 100 ml @ 5 mls/hr TITRATE IV Last administered on 01/18/19 21:11; Admin Dose 5 MLS/HR; Start 01/15/19 at 17:30 Meropenem/Sodium Chloride 50 ml @ 100 mls/hr Q12H IVPB Last administered on 01/20/19 05:27; Admin Dose 100 MLS/HR; Start 01/15/19 at 17:30 Norepinephrine 250 ml @ 1.875 mls/ hr TITRATE IV Last administered on 01/20/19 00:31; Admin Dose 18.75 MLS/HR; Start 01/15/19 at 17:30 Insulin Aspart (Novolog Insulin Pen) NOVOLOG *MILD* ALGORITHM Q4 SC Last admin istered on 01/19/19 20:16; Admin Dose 1 UNIT; Start 01/15/19 at 17:55 Ipratropium [place] (Atrovent Hfa) 4 puff Q6H RESP THERAPY INH Last administered on 01/20/19 10:11; Admin Dose 4 PUFF; Start 01/15/19 at 20:00 Albuterol (Ventolin Hfa) 4 puff Q6H RESP THERAPY INH Last administered on 01/20/19 10:11; Admin Dose 4 PUFF; Start 01/15/19 at 20:00 Famotidine (Pepcid Iv) 20 mg Q24H IV Last administered on 01/20/19 05:27; Admin Dose 20 MG; Start 01/16/19 at 06:00 Propofol 100 ml @ 2.46 mls/hr Q12H IV Last administered on 01/18/19 00:27; Admin Dose 9.84 MLS/HR; Start 01/15/19 at 23:00 Vasopressin 60 unit/Dextrose 60 ml @ 1.2 mls/hr Q12H IV Last administered on 01/18/19 05:05; Admin Dose 2.4 MLS/HR; Start 01/16/19 at 02:30 Phenylephrine HCl 250 ml @ 75 mls/hr TITRATE IV ; Start 01/16/19 at 10:30 Caspofungin 35 mg/ Sodium Chloride 250 ml @ 250 mls/hr Q24H IVPB Last administered on 01/19/19 15:45; Admin Dose 250 MLS/HR; Start 01/17/19 at 15:00 Docusate Sodium (Colace Liquid Cup) 100 mg BID NGT Last administered on 01/20/19 10:40; Admin Dose 100 MG; Start 01/17/19 at 21:00 Collagenase (Santyl) 1 applic BID TOP Last administered on 01/20/19 10:40; Admin Dose 1 APPLIC; Start 01/17/19 at 21:00 Dexmedetomidine HCl 200 mcg/ Sodium Chloride 50 ml @ 4.1 mls/hr TITRATE IV Last administered on 01/19/19 06:46; Admin Dose 4.1 MLS/HR; Start 01/18/19 at 08:00 Albumin Human 100 ml @ 100 mls/hr DURING DIALYSIS PRN IV BLOOD PRESSURE SUPPORT Last administered on 01/18/19 11:21; Admin Dose 100 MLS/HR; Start 01/18/19 at 11:30 Amiodarone HCl (Cordarone) 200 mg TID PO Last administered on 01/19/19 20:11; Admin Dose 200 MG; Start 01/18/19 at 21:00 Lactulose (Enulose) 20 gm BID PO Last administered on 01/20/19 10:39; Admin Dose 20 GM; Start 01/19/19 at 21:00 Metoclopramide HCl (Reglan) 5 mg Q6 IV Last administered on 01/20/19 05:27; Admin Dose 5 MG; Start 01/19/19 at 20:00 Assessment/Plan Hospital Course (Demo Recall) IMP: 1. Hypoxemic and hypercapnic respiratory failure, 2. Extensive CAP vs. HCAP 3. Persistent leukocytosis 4. AMS--likely toxic-metabolic encephalopathy concern for possible stroke given persistent encephalopathy despite withdrawal of sedation. 5. ESRD on HD 6. HTN 7. CAD 8. Septic shock secondary to above RECS: 1. Continue mechanical ventilation 2. IV fluids vasopressors titrate to keep map greater than 65 3. Continue antibiotics will send work-up for atypicals. 4. Continue tube feeding as tolerated 5. Hemodialysis as tolerated 6. Liver function testing and ultrasound noted. 7. CT brain exclude CVA given persistent encephalopathy Critical care time 40 minutes Overall prognosis guarded DARIA AGUIAR MD, [facility] Jan 20, 2019 10:53
[2019-01-20] MEDS: PROPOFOL 100 ML IV SCH ×2 (11:00→23:00)
--- NOTE | 2019-01-20 12:35 | CONS ---
Assessment/Plan Assessment/Plan Hospital Course (Demo Recall) 1. End-stage renal disease on hemodialysis. hemodialysis Wednesday, and Wednesday via left arm AV fistula 2. Septic shock , likely secondary to pneumonia/ cholecystitis. with elevated bilirubin , cx positive for yeast 3. Elevated trop 4. Hypokalemia, resolved. 5. Leukocytosis. 6. Shortness of breath, cough, weakness, leukocytosis of 26.8, likely secondary to pneumonia. with hypoxic and hypercapnic resp failure 7. Hyperbilirubinemia, abnormal liver function tests. 8. respiratory failure, likely secondary to pneumonia. 9. Hypertension, currently hypotensive 10. Dyslipidemia. 11. Diabetes. 12. Anemia chronic disease 13. encephalopathy, ALOC 14 Respiratory failure s/p intubation 15 New onset AFIB 16 Abnormal LFT with elevated Bili/direct/alk phos and elevation of transaminases ? r/o obstruction Assessment/Plan (Daily) Assessment/Plan (Daily) -on vent -HD yesterday - albumin prime beforer HD today -avoid nephrotoxic drugs -c/w Epogen after HD -cw vanco/meropenam/caspo/ flagyl per ID Consultation Date/Type/Reason Admit Date/Time January 13, 2019 at 00:07 Initial Consult Date 01/13/2019 Type of Consult nephrology Date/Time of Note DATE: 01/20/19 TIME: 12:33 24 HR Interval Summary Subjective hx not possible: pt critical status Exam/Review of Systems Exam Vitals Vital Signs Date Temp Pulse Resp B/P (MAP) Pulse Ox O2 O2 Flow FiO2 Time Delivery Rate 01/20/19 89 12:00 01/20/19 25 99 40 11:30 01/20/19 125/33 Mechanical 11:30 (63) Ventilator 01/20/19 97.9 08:00 Intake and Output 01/19/19 01/19/19 01/20/19 1515:00 23:00 07:00 IntakeIntake Total 372.225 ml 467.025 ml 300.00 ml OutputOutput Total 0 ml 0 ml BalanceBalance 372.225 ml 467.025 ml 300.00 ml Results Result Diagram: 01/20/19 0400 01/20/19 0400 Results 24hrs Laboratory Tests Test 01/19/19 13:37 01/19/19 18:14 01/19/19 20:07 01/20/19 00:27 Bedside Glucose 164 154 150 133 Test 01/20/19 04:00 01/20/19 04:32 01/20/19 10:35 White Blood Count 21.8 H Red Blood Count 2.67 L Hemoglobin 8.3 L Hematocrit 26.4 L Mean Corpuscular Volume 98.9 Mean Corpuscular 31.1 Hemoglobin Mean Corpuscular 31.4 L Hemoglobin Concent Red Cell Distribution 15.8 H Width Platelet Count 80 L Mean Platelet Volume 13.2 H Immature Granulocytes % 2.100 H Neutrophils % 84.3 H Segmented Neutrophils 82 H % (Manual) Band Neutrophils % 3 (Manual) Lymphocytes % 5.8 L Lymphocytes % (Manual) 6 L Reactive Lymphocytes 1 H % (Manual) Monocytes % 3.5 Monocytes % (Manual) 1 Eosinophils % 3.0 Eosinophils % (Manual) 4 Basophils % 1.3 Basophils % (Manual) 2 Promyelocytes % (Manual) 1 H Nucleated Red Blood 0.1 H Cells % Immature Granulocytes # 0.460 H Neutrophils # 18.3 H Neutrophils # (Manual) 18.0 H Band Neutrophils # 0.6 Lymphocytes (Manual) 1.3 Lymphocytes # 1.3 Reactive Lymphocytes # 0.2 H Monocytes # 0.8 Monocytes # (Manual) 0.2 L Eosinophils # 0.7 H Basophils # 0.3 H Basophils # (Manual) 0.4 H Promyelocytes # 0.2 H Nucleated Red Blood 0.0 Cells # Platelet Estimate DECREASED Giant Platelets 3 H Polychromasia 1+ Poikilocytosis 2+ Anisocytosis 2+ Macrocytosis 1+ Sodium Level 140 Potassium Level 4.3 Chloride Level 106 Carbon Dioxide Level 25 Anion Gap 9 Blood Urea Nitrogen 31 H Creatinine 3.86 H Est Glomerular Filtrat Rate mL/min Glucose Level 126 Calcium Level 8.1 L Total Bilirubin 6.6 H Direct Bilirubin 5.80 H Indirect Bilirubin 0.8 Aspartate Amino 137 H Transf (AST/SGOT) Alanine 38 Aminotransferase (ALT/SG PT) Alkaline Phosphatase 202 H Total Protein 5.0 L Albumin 2.1 L Bedside Glucose 119 126 Medications Medication Current Medications Vancomycin HCl (Vanco Iv Per Pharmacy) VANCOMYCIN PER PHARMACY PER PROTOCOL XX ; Start 01/13/19 at 02:00 IV Flush (NS 3 ml) 3 ml PER PROTOCOL IV ; Start 01/13/19 at 02:00 Acetaminophen (Tylenol Tab) 650 mg Q6H PRN PO .PAIN 1-3 OR TEMP Last administered on 01/18/19 08:28; Admin Dose 650 MG; Start 01/13/19 at 02:00 Acetaminophen/ Hydrocodone Bitart ([place] (5/325)) 1 tab Q6H PRN PO .PAIN 4-6 Last administered on 01/15/19 13:40; Admin Dose 1 TAB; Start 01/13/19 at 02:00 Docusate Sodium (Colace) 100 mg Q12H PRN PO .CONSTIPATION; Start 01/13/19 at 02 :00 Bisacodyl (Dulcolax) 5 mg DAILY PRN PO .CONSTIPATION; Start 01/13/19 at 02:00 Heparin Sodium (Porcine) (Heparin (5000 Units/1ml)) 5,000 unit Q8 SC Last administered on 01/19/19 05:29; Admin Dose 5,000 UNIT; Start 01/13/19 at 06:00; Status Hold Atorvastatin Calcium (Lipitor) 40 mg DAILY@21 PO Last administered on 01/19/19 20:11; Admin Dose 40 MG; Start 01/13/19 at 21:00 Carvedilol (Coreg) 12.5 mg BID PO ; Start 01/13/19 at 09:00; Status Hold Ferrous Sulfate (Ferrous Sulfate (Ec)) 325 mg BID PO Last administered on 01/20/19 10:40; Admin Dose 325 MG; Start 01/13/19 at 09:00 Folic Acid (Folic Acid) 1 mg DAILY PO Last administered on 01/20/19 10:40; Admin Dose 1 MG; Start 01/13/19 at 09:00 Insulin Glargine (Lantus) 20 units QHS SC Last administered on 01/14/19 22:04; Admin Dose 20 UNITS; Start 01/13/19 at 21:00; Status Hold Aspirin (Aspirin) 81 mg DAILY PO Last administered on 01/20/19 10:39; Admin Dose 81 MG; Start 01/13/19 at 11:00 Miscellaneous Information 1 ea NOTE XX ; Start 01/13/19 at 15:30 Glucose (Glutose) 15 gm Q15M PRN PO DECREASED GLUCOSE; Start 01/13/19 at 15:30 Glucose (Glutose) 22.5 gm Q15M PRN PO DECREASED GLUCOSE; Start 01/13/19 at 15:30 Dextrose (D50w Syringe) 25 ml Q15M PRN IV DECREASED GLUCOSE; Start 01/13/19 at 15:30 Dextrose (D50w Syringe) 50 ml Q15M PRN IV DECREASED GLUCOSE; Start 01/13/19 at 15:30 Glucagon (Glucagen) 1 mg Q15M PRN IM DECREASED GLUCOSE; Start 01/13/19 at 15:30 Glucose (Glutose) 15 gm Q15M PRN BUCCAL DECREASED GLUCOSE; Start 01/13/19 at 15:30 Epoetin Cam-epbx (Retacrit (Esrd)) 4,000 unit TuThSa@1700 SC Last administered on 01/19/19at 18:05; Admin Dose 4,000 UNIT; Start 01/14/19 at 17:00 Levalbuterol (Xopenex Neb) 1.25 mg Q4H RESP THERAPY PRN HHN dyspnea; Start 01/14/19 at 19:00 Fentanyl 100 ml @ 5 mls/hr TITRATE IV Last administered on 01/18/19at 21:11; Admin Dose 5 MLS/HR; Start 01/15/19 at 17:30 Meropenem/Sodium Chloride 50 ml @ 100 mls/hr Q12H IVPB Last administered on 01/20/19 05:27; Admin Dose 100 MLS/HR; Start 01/15/19 at 17:30 Norepinephrine 250 ml @ 1.875 mls/ hr TITRATE IV Last administered on 01/20/19at 00:31; Admin Dose 18.75 MLS/HR; Start 01/15/19 at 17:30 Insulin Aspart (Novolog Insulin Pen) NOVOLOG *MILD* ALGORITHM Q4 SC Last administered on 01/19/19 20:16; Admin Dose 1 UNIT; Start 01/15/19 at 17:55 Ipratropium [place] (Atrovent Hfa) 4 puff Q6H RESP THERAPY INH Last administered on 01/20/19 10:11; Admin Dose 4 PUFF; Start 01/15/19 at 20:00 Albuterol (Ventolin Hfa) 4 puff Q6H RESP THERAPY INH Last administered on 01/20/19 10:11; Admin Dose 4 PUFF; Start 01/15/19 at 20:00 Famotidine (Pepcid Iv) 20 mg Q24H IV Last administered on 01/20/19 05:27; Admin Dose 20 MG; Start 01/16/19 at 06:00 Propofol 100 ml @ 2.46 mls/hr Q12H IV Last administered on 01/18/19 00:27; Admin Dose 9.84 MLS/HR; Start 01/15/19 at 23:00 Vasopressin 60 unit/Dextrose 60 ml @ 1.2 mls/hr Q12H IV Last administered on 01/18/19 05:05; Admin Dose 2.4 MLS/HR; Start 01/16/19 at 02:30 Phenylephrine HCl 250 ml @ 75 mls/hr TITRATE IV ; Start 01/16/19 at 10:30 Caspofungin 35 mg/ Sodium Chloride 250 ml @ 250 mls/hr Q24H IVPB Last administered on 01/19/19 15:45; Admin Dose 250 MLS/HR; Start 01/17/19 at 15:00 Docusate Sodium (Colace Liquid Cup) 100 mg BID NGT Last administered on 01/20/19 10:40; Admin Dose 100 MG; Start 01/17/19 at 21:00 Collagenase (Santyl) 1 applic BID TOP Last administered on 01/20/19 10:40; Admin Dose 1 APPLIC; Start 01/17/19 at 21:00 Dexmedetomidine HCl 200 mcg/ Sodium Chloride 50 ml @ 4.1 mls/hr TITRATE IV Last administered on 01/19/19 06:46; Admin Dose 4.1 MLS/HR; Start 01/18/19 at 08:00 Albumin Human 100 ml @ 100 mls/hr DURING DIALYSIS PRN IV BLOOD PRESSURE SUPPORT Last administered on 01/18/19 11:21; Admin Dose 100 MLS/HR; Start 01/18/19 at 11:30 Amiodarone HCl (Cordarone) 200 mg TID PO Last administered on 01/20/19 10:15; Admin Dose 200 MG; Start 01/18/19 at 21:00 Lactulose (Enulose) 20 gm BID PO Last administered on 01/20/19 10:39; Admin Dose 20 GM; Start 01/19/19 at 21:00 Metoclopramide HCl (Reglan) 5 mg Q6 IV Last administered on 6/7/19at 05:27; Admin Dose 5 MG; Start 01/19/19 at 20:00 IVONNE BHAT Jan 20, 2019 12:35
[2019-01-20] MEDS ORDERED: AMIODARONE 150MG/D5W BOLUS 100 ML IV ONE (13:00)
--- NOTE | 2019-01-20 13:49 | CONS ---
Assessment/Plan Assessment/Plan Hospital Course (Demo Recall) Shock, likely secondary to sepsis Vent dependent respiratory failure Severe hypotension on IV pressor Sepsis secondary to pneumonia New onset atrial fibrillation-paroxysmal Preserved left ventricular ejection fraction Minimally elevated troponin CAD with history of CABG End-stage renal disease on hemodialysis Diabetes Hypertension Dyslipidemia Titrate IV pressors to maintain SBP greater than 90 and/or map above 60. We will give IV bolus of amiodarone, increased dose of p.o. amiodarone Vent management as per pulmonary Would hold all patient's antihypertensives Fluid management via hemodialysis as per nephrology Antibiotics as per infectious disease Continue aspirin and statin therapy if no contraindication Consultation Date/Type/Reason Admit Date/Time January 13, 2019 at 00:07 Initial Consult Date 01/15/19 Type of Consult Cardiology Date/Time of Note DATE: 01/20/19 TIME: 13:47 24 HR Interval Summary Free Text/Dictation Patient with recurrence of atrial fibrillation. Remains on IV pressor Exam/Review of Systems Vital Signs Vitals Vital Signs Date Temp Pulse Resp B/P (MAP) Pulse Ox O2 O2 Flow FiO2 Time Delivery Rate 01/20/19 131 22 91/47 (62) 99 13:30 01/20/19 Mechanical 13:15 Ventilator 01/20/19 40 12:00 01/20/19 98.2 12:00 Intake and Output 01/19/19 01/19/19 01/20/19 1515:00 23:00 07:00 IntakeIntake Total 372.225 ml 467.025 ml 300.00 ml OutputOutput Total 0 ml 0 ml BalanceBalance 372.225 ml 467.025 ml 300.00 ml Exam Exam Intubated and sedated, no apparent distress Head: normocephalic ENMT: intubated Respiratory: other (Coarse breath sounds bilaterally, no wheezing) Cardiovascular: irregular rhythm (S1-S2 heard) Gastrointestinal: soft, bowel sounds, other (No grimacing with palpation) Extremities: edema Labs Result Diagram: 01/20/19 0400 01/20/19 0400 Results 24hrs Laboratory Tests Test 01/19/19 18:14 01/19/19 20:07 01/20/19 00:27 01/20/19 04:00 Bedside Glucose 154 150 133 White Blood Count 21.8 H Red Blood Count 2.67 L Hemoglobin 8.3 L Hematocrit 26.4 L Mean Corpuscular Volume 98.9 Mean Corpuscular 31.1 Hemoglobin Mean Corpuscular 31.4 L Hemoglobin Concent Red Cell Distribution 15.8 H Width Platelet Count 80 L Mean Platelet Volume 13.2 H Immature Granulocytes % 2.100 H Neutrophils % 84.3 H Segmented Neutrophils 82 H % (Manual) Band Neutrophils % 3 (Manual) Lymphocytes % 5.8 L Lymphocytes % (Manual) 6 L Reactive Lymphocytes 1 H % (Manual) Monocytes % 3.5 Monocytes % (Manual) 1 Eosinophils % 3.0 Eosinophils % (Manual) 4 Basophils % 1.3 Basophils % (Manual) 2 Promyelocytes % (Manual) 1 H Nucleated Red Blood 0.1 H Cells % Immature Granulocytes # 0.460 H Neutrophils # 18.3 H Neutrophils # (Manual) 18.0 H Band Neutrophils # 0.6 Lymphocytes (Manual) 1.3 Lymphocytes # 1.3 Reactive Lymphocytes # 0.2 H Monocytes # 0.8 Monocytes # (Manual) 0.2 L Eosinophils # 0.7 H Basophils # 0.3 H Basophils # (Manual) 0.4 H Promyelocytes # 0.2 H Nucleated Red Blood 0.0 Cells # Platelet Estimate DECREASED Giant Platelets 3 H Polychromasia 1+ Poikilocytosis 2+ Anisocytosis 2+ Macrocytosis 1+ Sodium Level 140 Potassium Level 4.3 Chloride Level 106 Carbon Dioxide Level 25 Anion Gap 9 Blood Urea Nitrogen 31 H Creatinine 3.86 H Est Glomerular Filtrat Rate mL/min Glucose Level 126 Calcium Level 8.1 L Total Bilirubin 6.6 H Direct Bilirubin 5.80 H Indirect Bilirubin 0.8 Aspartate Amino 137 H Transf (AST/SGOT) Alanine 38 Aminotransferase (ALT/SG PT) Alkaline Phosphatase 202 H Total Protein 5.0 L Albumin 2.1 L Test 01/20/19 04:32 01/20/19 10:35 01/20/19 13:22 Bedside Glucose 119 126 131 Medications Medications Current Medications Vancomycin HCl (Vanco Iv Per Pharmacy) VANCOMYCIN PER PHARMACY PER PROTOCOL XX ; Start 01/13/19 at 02:00 IV Flush (NS 3 ml) 3 ml PER PROTOCOL IV ; Start 01/13/19 at 02:00 Acetaminophen (Tylenol Tab) 650 mg Q6H PRN PO .PAIN 1-3 OR TEMP Last administered on 01/18/19at 08:28; Admin Dose 650 MG; Start 01/13/19 at 02:00 Acetaminophen/ Hydrocodone Bitart ([place] (5/325)) 1 tab Q6H PRN PO .PAIN 4-6 Last administered on 01/15/19at 13:40; Admin Dose 1 TAB; Start 01/13/19 at 02:00 Docusate Sodium (Colace) 100 mg Q12H PRN PO .CONSTIPATION; Start 01/13/19 at 02:00 Bisacodyl (Dulcolax) 5 mg DAILY PRN PO .CONSTIPATION; Start 01/13/19 at 02:00 Heparin Sodium (Porcine) (Heparin (5000 Units/1ml)) 5,000 unit Q8 SC Last administered on 01/19/19 05:29; Admin Dose 5,000 UNIT; Start 01/13/19 at 06:00; Status Hold Atorvastatin Calcium (Lipitor) 40 mg DAILY@21 PO Last administered on 01/19/19at 20:11; Admin Dose 40 MG; Start 01/13/19 at 21:00 Carvedilol (Coreg) 12.5 mg BID PO ; Start 01/13/19 at 09:00; Status Hold Ferrous Sulfate (Ferrous Sulfate (Ec)) 325 mg BID PO Last administered on 01/20/19 10:40; Admin Dose 325 MG; Start 01/13/19 at 09:00 Folic Acid (Folic Acid) 1 mg DAILY PO Last administered on 01/20/19 10:40; Admin Dose 1 MG; Start 01/13/19 at 09:00 Insulin Glargine (Lantus) 20 units QHS SC Last administered on 01/14/19 22:04; Admin Dose 20 UNITS; Start 01/13/19 at 21:00; Status Hold Aspirin (Aspirin) 81 mg DAILY PO Last administered on 01/20/19 10:39; Admin Dose 81 MG; Start 01/13/19 at 11:00 Miscellaneous Information 1 ea NOTE XX ; Start 01/13/19 at 15:30 Glucose (Glutose) 15 gm Q15M PRN PO DECREASED GLUCOSE; Start 01/13/19 at 15:30 Glucose (Glutose) 22.5 gm Q15M PRN PO DECREASED GLUCOSE; Start 01/13/19 at 15:30 Dextrose (D50w Syringe) 25 ml Q15M PRN IV DECREASED GLUCOSE; Start 01/13/19 at 15:30 Dextrose (D50w Syringe) 50 ml Q15M PRN IV DECREASED GLUCOSE; Start 01/13/19 at 15:30 Glucagon (Glucagen) 1 mg Q15M PRN IM DECREASED GLUCOSE; Start 01/13/19 at 15:30 Glucose (Glutose) 15 gm Q15M PRN BUCCAL DECREASED GLUCOSE; Start 01/13/19 at 15:30 Epoetin Cam-epbx (Retacrit (Esrd)) 4,000 unit TuThSa@1700 SC Last administered on 01/19/19 18:05; Admin Dose 4,000 UNIT; Start 01/14/19 at 17:00 Levalbuterol (Xopenex Neb) 1.25 mg Q4H RESP THERAPY PRN HHN dyspnea; Start 01/14/19 at 19:00 Fentanyl 100 ml @ 5 mls/hr TITRATE IV Last administered on 01/18/19 21:11; Admin Dose 5 MLS/HR; Start 01/15/19 at 17:30 Meropenem/Sodium Chloride 50 ml @ 100 mls/hr Q12H IVPB Last administered on 01/20/19 05:27; Admin Dose 100 MLS/HR; Start 01/15/19 at 17:30 Norepinephrine 250 ml @ 1.875 mls/ hr TITRATE IV Last administered on 01/20/19 13:23; Admin Dose 24.375 MLS/HR; Start 01/15/19 at 17:30 Insulin Aspart (Novolog Insulin Pen) NOVOLOG *MILD* ALGORITHM Q4 SC Last administered on 01/19/19 20:16; Admin Dose 1 UNIT; Start 01/15/19 at 17:55 Ipratropium [place] (Atrovent Hfa) 4 puff Q6H RESP THERAPY INH Last administered on 01/20/19 10:11; Admin Dose 4 PUFF; Start 01/15/19 at 20:00 Albuterol (Ventolin Hfa) 4 puff Q6H RESP THERAPY INH Last administered on 01/20/19 10:11; Admin Dose 4 PUFF; Start 01/15/19 at 20:00 Famotidine (Pepcid Iv) 20 mg Q24H IV Last administered on 01/20/19 05:27; Admin Dose 20 MG; Start 01/16/19 at 06:00 Propofol 100 ml @ 2.46 mls/hr Q12H IV Last administered on 01/18/19 00:27; Admin Dose 9.84 MLS/HR; Start 01/15/19 at 23:00 Vasopressin 60 unit/Dextrose 60 ml @ 1.2 mls/hr Q12H IV Last administered on 01/18/19 05:05; Admin Dose 2.4 MLS/HR; Start 01/16/19 at 02:30 Phenylephrine HCl 250 ml @ 75 mls/hr TITRATE IV ; Start 01/16/19 at 10:30 Caspofungin 35 mg/ Sodium Chloride 250 ml @ 250 mls/hr Q24H IVPB Last admi nistered on 01/19/19 15:45; Admin Dose 250 MLS/HR; Start 01/17/19 at 15:00 Docusate Sodium (Colace Liquid Cup) 100 mg BID NGT Last administered on 01/20/19 10:40; Admin Dose 100 MG; Start 01/17/19 at 21:00 Collagenase (Santyl) 1 applic BID TOP Last administered on 01/20/19 10:40; Admin Dose 1 APPLIC; Start 01/17/19 at 21:00 Dexmedetomidine HCl 200 mcg/ Sodium Chloride 50 ml @ 4.1 mls/hr TITRATE IV Last administered on 01/19/19 06:46; Admin Dose 4.1 MLS/HR; Start 01/18/19 at 08:00 Albumin Human 100 ml @ 100 mls/hr DURING DIALYSIS PRN IV BLOOD PRESSURE SUPPORT Last administered on 01/18/19 11:21; Admin Dose 100 MLS/HR; Start 01/18/19 at 11:30 Amiodarone HCl (Cordarone) 200 mg TID PO Last administered on 01/20/19 10:15; Admin Dose 200 MG; Start 01/18/19 at 21:00 Lactulose (Enulose) 20 gm BID PO Last administered on 01/20/19 10:39; Admin Dose 20 GM; Start 01/19/19 at 21:00 Metoclopramide HCl (Reglan) 5 mg Q6 IV Last administered on 01/20/19 13:10; Admin Dose 5 MG; Start 01/19/19 at 20:00 Wilfred Decker DO Jan 20, 2019 13:49
--- NOTE | 2019-01-20 16:21 | PN ---
Date/Time of Note Date/Time of Note DATE: 01/20/19 TIME: 16:00 Assessment/Plan VTE Prophylaxis Risk score (from Ns)>0 risk: 14 SCD applied (from Ns): Yes Pharmacological prophylaxis: NA/contraindicated Pharm contraindication: liver dx Lines/Catheters IV C[facility]ter Type (from [facility] Central Line Central line still needed: Yes Urinary Cath still in place: No Assessment/Plan Assessment/Plan Assessment: Elevated LFTs with direct hyperbilirubinemia -Hepatitis serologies negative -No biliary dilatation, on CT scan -ASMA/AMA- negative -ASÚL positive Imaging concerning for cirrhosis -Mild ascites -Thrombocytopenia -Coagulopathy Normocytic anemia Mild diffuse colitis on imaging - no diarrhea -KUB- no obstruction -CT- No bowel obstruction. Leukocytosis- trending down Healthcare associated pneumonia Hypoxic respiratory failure -intubated on MV NSTEMI, type II Coronary artery disease -History of CABG ESRD DM HTN Plan: KUB/CT with no evidence of obstruction will increase Reglan to 10 mg OTC Lactulose BID and mineral oil enema x1 MRCP when patient stable to rule out common bile duct obstruction versus hepatocellular disease Trend LFTs Supportive care Patient seen in collaboration with Dr. Resendez Subjective: Course reviewed with nursing staff Patient interviewed and examined All labs, imaging and other results reviewed Patient remains in the ICU, intubated, on pressors. White blood count is tren ding up. When stable will proceed with MRCP to rule out biliary obstruction. No significant change in overall status PHYSICAL EXAMINATION: GENERAL: Intubated, sedation, on pressors, jaundice, OG in place. SKIN: No lesions, CHEST: Inspection within normal limits. CARDIOVASCULAR: Heart: Regular rate and rhythm RESPIRATORY: Lungs clear to auscultation and percussion, no wheezing, no rubs GASTROINTESTINAL AND LIVER: Abdomen: Soft, non tenderness, non-distended, no hernias, no masses, no organomegaly, no ascites, no guarding, no rebound tenderness, hypoactive bowel sounds. Rectal: Deferred. EXTREMITIES: No cyanosis, clubbing or edema. Result Diagram: 01/20/19 0400 01/20/19 0400 Results 24hrs Laboratory Tests Test 01/19/19 18:14 01/19/19 20:07 01/20/19 00:27 01/20/19 04:00 Bedside Glucose 154 150 133 White Blood Count 21.8 H Red Blood Count 2.67 L Hemoglobin 8.3 L Hematocrit 26.4 L Mean Corpuscular Volume 98.9 Mean Corpuscular 31.1 Hemoglobin Mean Corpuscular 31.4 L Hemoglobin Concent Red Cell Distribution 15.8 H Width Platelet Count 80 L Mean Platelet Volume 13.2 H Immature Granulocytes % 2.100 H Neutrophils % 84.3 H Segmented Neutrophils 82 H % (Manual) Band Neutrophils % 3 (Manual) Lymphocytes % 5.8 L Lymphocytes % (Manual) 6 L Reactive Lymphocytes 1 H % (Manual) Monocytes % 3.5 Monocytes % (Manual) 1 Eosinophils % 3.0 Eosinophils % (Manual) 4 Basophils % 1.3 Basophils % (Manual) 2 Promyelocytes % (Manual) 1 H Nucleated Red Blood 0.1 H Cells % Immature Granulocytes # 0.460 H Neutrophils # 18.3 H Neutrophils # (Manual) 18.0 H Band Neutrophils # 0.6 Lymphocytes (Manual) 1.3 Lymphocytes # 1.3 Reactive Lymphocytes # 0.2 H Monocytes # 0.8 Monocytes # (Manual) 0.2 L Eosinophils # 0.7 H Basophils # 0.3 H Basophils # (Manual) 0.4 H Promyelocytes # 0.2 H Nucleated Red Blood 0.0 Cells # Platelet Estimate DECREASED Giant Platelets 3 H Polychromasia 1+ Poikilocytosis 2+ Anisocytosis 2+ Macrocytosis 1+ Sodium Level 140 Potassium Level 4.3 Chloride Level 106 Carbon Dioxide Level 25 Anion Gap 9 Blood Urea Nitrogen 31 H Creatinine 3.86 H Est Glomerular Filtrat Rate mL/min Glucose Level 126 Calcium Level 8.1 L Total Bilirubin 6.6 H Direct Bilirubin 5.80 H Indirect Bilirubin 0.8 Aspartate Amino 137 H Transf (AST/SGOT) Alanine 38 Aminotransferase (ALT/SG PT) Alkaline Phosphatase 202 H Total Protein 5.0 L Albumin 2.1 L Test 01/20/19 04:32 01/20/19 10:35 01/20/19 13:22 Bedside Glucose 119 126 131 CC: SEBASTIÁN RESENDEZ MD ; Exam/Review of Systems Exam Vitals Vital Signs Date Temp Pulse Resp B/P (MAP) Pulse Ox O2 O2 Flow FiO2 Time Delivery Rate 01/20/19 130 20 93 75 15:30 01/20/19 101/33 Mechanical 14:45 (55) Ventilator 01/20/19 98.2 12:00 Intake and Output 01/19/19 01/19/19 01/20/19 1515:00 23:00 07:00 IntakeIntake Total 372.225 ml 467.025 ml 300.00 ml OutputOutput Total 0 ml 0 ml BalanceBalance 372.225 ml 467.025 ml 300.00 ml Results Results 24hrs Laboratory Tests Test 01/19/19 18:14 01/19/19 20:07 01/20/19 00:27 01/20/19 04:00 Bedside Glucose 154 150 133 White Blood Count 21.8 H Red Blood Count 2.67 L Hemoglobin 8.3 L Hematocrit 26.4 L Mean Corpuscular Volume 98.9 Mean Corpuscular 31.1 Hemoglobin Mean Corpuscular 31.4 L Hemoglobin Concent Red Cell Distribution 15.8 H Width Platelet Count 80 L Mean Platelet Volume 13.2 H Immature Granulocytes % 2.100 H Neutrophils % 84.3 H Segmented Neutrophils 82 H % (Manual) Band Neutrophils % 3 (Manual) Lymphocytes % 5.8 L Lymphocytes % (Manual) 6 L Reactive Lymphocytes 1 H % (Manual) Monocytes % 3.5 Monocytes % (Manual) 1 Eosinophils % 3.0 Eosinophils % (Manual) 4 Basophils % 1.3 Basophils % (Manual) 2 Promyelocytes % (Manual) 1 H Nucleated Red Blood 0.1 H Cells % Immature Granulocytes # 0.460 H Neutrophils # 18.3 H Neutrophils # (Manual) 18.0 H Band Neutrophils # 0.6 Lymphocytes (Manual) 1.3 Lymphocytes # 1.3 Reactive Lymphocytes # 0.2 H Monocytes # 0.8 Monocytes # (Manual) 0.2 L Eosinophils # 0.7 H Basophils # 0.3 H Basophils # (Manual) 0.4 H Promyelocytes # 0.2 H Nucleated Red Blood 0.0 Cells # Platelet Estimate DECREASED Giant Platelets 3 H Polychromasia 1+ Poikilocytosis 2+ Anisocytosis 2+ Macrocytosis 1+ Sodium Level 140 Potassium Level 4.3 Chloride Level 106 Carbon Dioxide Level 25 Anion Gap 9 Blood Urea Nitrogen 31 H Creatinine 3.86 H Est Glomerular Filtrat Rate mL/min Glucose Level 126 Calcium Level 8.1 L Total Bilirubin 6.6 H Direct Bilirubin 5.80 H Indirect Bilirubin 0.8 Aspartate Amino 137 H Transf (AST/SGOT) Alanine 38 Aminotransferase (ALT/SG PT) Alkaline Phosphatase 202 H Total Protein 5.0 L Albumin 2.1 L Test 01/20/19 04:32 01/20/19 10:35 01/20/19 13:22 Bedside Glucose 119 126 131 Medications Medication Current Medications Vancomycin HCl (Vanco Iv Per Pharmacy) VANCOMYCIN PER PHARMACY PER PROTOCOL XX ; Start 01/13/19 at 02:00 IV Flush (NS 3 ml) 3 ml PER PROTOCOL IV ; Start 01/13/19 at 02:00 Acetaminophen (Tylenol Tab) 650 mg Q6H PRN PO .PAIN 1-3 OR TEMP Last administered on 01/18/19at 08:28; Admin Dose 650 MG; Start 01/13/19 at 02:00 Acetaminophen/ Hydrocodone Bitart ([place] (5/325)) 1 tab Q6H PRN PO .PAIN 4-6 Last administered on 01/15/19 13:40; Admin Dose 1 TAB; Start 01/13/19 at 02:00 Docusate Sodium (Colace) 100 mg Q12H PRN PO .CONSTIPATION; Start 01/13/19 at 02:00 Bisacodyl (Dulcolax) 5 mg DAILY PRN PO .CONSTIPATION; Start 01/13/19 at 02:00 Heparin Sodium (Porcine) (Heparin (5000 Units/1ml)) 5,000 unit Q8 SC Last administered on 01/19/19at 05:29; Admin Dose 5,000 UNIT; Start 01/13/19 at 06:00; Status Hold Atorvastatin Calcium (Lipitor) 40 mg DAILY@21 PO Last administered on 01/19/19at 20:11; Admin Dose 40 MG; Start 01/13/19 at 21:00 Carvedilol (Coreg) 12.5 mg BID PO ; Start 01/13/19 at 09:00; Status Hold Ferrous Sulfate (Ferrous Sulfate (Ec)) 325 mg BID PO Last administered on 10:40; Admin Dose 325 MG; Start 01/13/19 at 09:00 Folic Acid (Folic Acid) 1 mg DAILY PO Last administered on 01/20/19 10:40; Admin Dose 1 MG; Start 01/13/19 at 09:00 Insulin Glargine (Lantus) 20 units QHS SC Last administered on 01/14/19at 22:04; Admin Dose 20 UNITS; Start 01/13/19 at 21:00; Status Hold Aspirin (Aspirin) 81 mg DAILY PO Last administered on 01/20/19at 10:39; Admin Dose 81 MG; Start 01/13/19 at 11:00 Miscellaneous Information 1 ea NOTE XX ; Start 01/13/19 at 15:30 Glucose (Glutose) 15 gm Q15M PRN PO DECREASED GLUCOSE; Start 01/13/19 at 15:30 Glucose (Glutose) 22.5 gm Q15M PRN PO DECREASED GLUCOSE; Start 01/13/19 at 15:30 Dextrose (D50w Syringe) 25 ml Q15M PRN IV DECREASED GLUCOSE; Start 01/13/19 at 15:30 Dextrose (D50w Syringe) 50 ml Q15M PRN IV DECREASED GLUCOSE; Start 01/13/19 at 15:30 Glucagon (Glucagen) 1 mg Q15M PRN IM DECREASED GLUCOSE; Start 01/13/19 at 15:30 Glucose (Glutose) 15 gm Q15M PRN BUCCAL DECREASED GLUCOSE; Start 01/13/19 at 15:30 Epoetin Cam-epbx (Retacrit (Esrd)) 4,000 unit TuThSa@1700 SC Last administered on 01/19/19at 18:05; Admin Dose 4,000 UNIT; Start 01/14/19 at 17:00 Levalbuterol (Xopenex Neb) 1.25 mg Q4H RESP THERAPY PRN HHN dyspnea; Start 01/14/19 at 19:00 Fentanyl 100 ml @ 5 mls/hr TITRATE IV Last administered on 01/18/19at 21:11; Admin Dose 5 MLS/HR; Start 01/15/19 at 17:30 Meropenem/Sodium Chloride 50 ml @ 100 mls/hr Q12H IVPB Last administered on 01/20/19 05:27; Admin Dose 100 MLS/HR; Start 01/15/19 at 17:30 Norepinephrine 250 ml @ 1.875 mls/ hr TITRATE IV Last administered on 01/20/19at 13:23; Admin Dose 24.375 MLS/HR; Start 01/15/19 at 17:30 Insulin Aspart (Novolog Insulin Pen) NOVOLOG *MILD* ALGORITHM Q4 SC Last ad ministered on 01/19/19at 20:16; Admin Dose 1 UNIT; Start 01/15/19 at 17:55 Ipratropium [place] (Atrovent Hfa) 4 puff Q6H RESP THERAPY INH Last administered on 01/20/19 15:13; Admin Dose 4 PUFF; Start 01/15/19 at 20:00 Albuterol (Ventolin Hfa) 4 puff Q6H RESP THERAPY INH Last administered on 01/20/19 15:14; Admin Dose 4 PUFF; Start 01/15/19 at 20:00 Famotidine (Pepcid Iv) 20 mg Q24H IV Last administered on 01/20/19 05:27; Admin Dose 20 MG; Start 01/16/19 at 06:00 Propofol 100 ml @ 2.46 mls/hr Q12H IV Last administered on 01/18/19 00:27; Admin Dose 9.84 MLS/HR; Start 01/15/19 at 23:00 Vasopressin 60 unit/Dextrose 60 ml @ 1.2 mls/hr Q12H IV Last administered on 01/18/19 05:05; Admin Dose 2.4 MLS/HR; Start 01/16/19 at 02:30 Phenylephrine HCl 250 ml @ 75 mls/hr TITRATE IV ; Start 01/16/19 at 10:30 Caspofungin 35 mg/ Sodium Chloride 250 ml @ 250 mls/hr Q24H IVPB Last administered on 01/19/19 15:45; Admin Dose 250 MLS/HR; Start 01/17/19 at 15:00 Docusate Sodium (Colace Liquid Cup) 100 mg BID NGT Last administered on 01/20/19 10:40; Admin Dose 100 MG; Start 01/17/19 at 21:00 Collagenase (Santyl) 1 applic BID TOP Last administered on 01/20/19 10:40; Admin Dose 1 APPLIC; Start 01/17/19 at 21:00 Dexmedetomidine HCl 200 mcg/ Sodium Chloride 50 ml @ 4.1 mls/hr TITRATE IV Last administered on 01/19/19 06:46; Admin Dose 4.1 MLS/HR; Start 01/18/19 at 08:00 Albumin Human 100 ml @ 100 mls/hr DURING DIALYSIS PRN IV BLOOD PRESSURE SUPPORT Last administered on 01/18/19 11:21; Admin Dose 100 MLS/HR; Start 01/18/19 at 11:30 Lactulose (Enulose) 20 gm BID PO Last administered on 01/20/19at 10:39; Admin Dose 20 GM; Start 01/19/19 at 21:00 Metoclopramide HCl (Reglan) 5 mg Q6 IV Last administered on 01/20/19at 13:10; Admin Dose 5 MG; Start 01/19/19 at 20:00 Amiodarone HCl (Cordarone) 400 mg TID PO ; Start 01/20/19 at 21:00 Miscellaneous Information (*Rx Drug Level Order Reminder*) DAVID EDUARDO W/ AM LABS... 0500 ONCE XX ; Start 01/21/19 at 05:00; Stop 01/21/19 at 05:01 KAYCE ZAMORANO NP Jan 20, 2019 16:21
[2019-01-20] MEDS: CASPOFUNGIN 35 MG in SOD CHLORIDE 0.9% 250 ML IVPB SCH (17:19)
--- NOTE | 2019-01-20 17:45 | CONS ---
Assessment/Plan Assessment/Plan Hospital Course (Demo Recall) 1100 No acute changes patient is off sedation, looks comfortable no fevers overnight WBC today 21.8 platelets 80 neutrophils 84.3 Chest x-ray this morning revealed diffuse interstitial and patchy airspace opacity disease opacities Antimicrobials: Unchanged Cancidas meropenem vancomycin Microbiology: Sputum culture grew yeast. CT abdomen pelvis without contrast revealed diffuse colitis. Cholelithiasis without evidence for cholecystitis. Nonspecific patchy bibasilar pulmonary consolidation. Please see full report in the chart Indwelling's endotracheal tube, NG tube, right IJ triple-lumen catheter, left upper extremity AV fistula Physical examination: Chronically ill-appearing elderly man who is intubated sedated in no distress. Head atraumatic normocephalic sclera nonicteric vehicle mucosa dry. Neck is supple chest rise symmetrical breath sounds diminished bases. Heart: S1-S2. Abdomen soft bowel sounds present. Extremities with bilateral edema. Assessment: 1. Severe sepsis with shock ?biliary 2. Acute hypoxemic respiratory failure/CHF exacerbation 3. Healthcare associated pneumonia possibly aspirated 4. Colitis 5. End-stage renal disease, hemodialysis dependent 6. Coronary artery disease 7. Transaminitis with elevated total bilirubin, poss obstruction Plan: Patient remains unchanged, continue antibiotics Consultation Date/Type/Reason Admit Date/Time January 13, 2019 at 00:07 Initial Consult Date 01/15/19 Type of Consult id Date/Time of Note DATE: 01/20/19 TIME: 17:43 Exam/Review of Systems Exam Vitals Vital Signs Date Temp Pulse Resp B/P (MAP) Pulse Ox O2 O2 Flow FiO2 Time Delivery Rate 01/20/19 88 16:00 01/20/19 20 93 75 15:30 01/20/19 101/33 Mechanical 14:45 (55) Ventilator 01/20/19 98.2 12:00 Intake and Output 01/19/19 01/19/19 01/20/19 1515:00 23:00 07:00 IntakeIntake Total 372.225 ml 467.025 ml 300.00 ml OutputOutput Total 0 ml 0 ml BalanceBalance 372.225 ml 467.025 ml 300.00 ml Results Result Diagram: 01/20/19 0400 01/20/19 0400 Results 24hrs Laboratory Tests Test 01/19/19 18:14 01/19/19 20:07 01/20/19 00:27 01/20/19 04:00 Bedside Glucose 154 150 133 White Blood Count 21.8 H Red Blood Count 2.67 L Hemoglobin 8.3 L Hematocrit 26.4 L Mean Corpuscular Volume 98.9 Mean Corpuscular 31.1 Hemoglobin Mean Corpuscular 31.4 L Hemoglobin Concent Red Cell Distribution 15.8 H Width Platelet Count 80 L Mean Platelet Volume 13.2 H Immature Granulocytes % 2.100 H Neutrophils % 84.3 H Segmented Neutrophils 82 H % (Manual) Band Neutrophils % 3 (Manual) Lymphocytes % 5.8 L Lymphocytes % (Manual) 6 L Reactive Lymphocytes 1 H % (Manual) Monocytes % 3.5 Monocytes % (Manual) 1 Eosinophils % 3.0 Eosinophils % (Manual) 4 Basophils % 1.3 Basophils % (Manual) 2 Promyelocytes % (Manual) 1 H Nucleated Red Blood 0.1 H Cells % Immature Granulocytes # 0.460 H Neutrophils # 18.3 H Neutrophils # (Manual) 18.0 H Band Neutrophils # 0.6 Lymphocytes (Manual) 1.3 Lymphocytes # 1.3 Reactive Lymphocytes # 0.2 H Monocytes # 0.8 Monocytes # (Manual) 0.2 L Eosinophils # 0.7 H Basophils # 0.3 H Basophils # (Manual) 0.4 H Promyelocytes # 0.2 H Nucleated Red Blood 0.0 Cells # Platelet Estimate DECREASED Giant Platelets 3 H Polychromasia 1+ Poikilocytosis 2+ Anisocytosis 2+ Macrocytosis 1+ Sodium Level 140 Potassium Level 4.3 Chloride Level 106 Carbon Dioxide Level 25 Anion Gap 9 Blood Urea Nitrogen 31 H Creatinine 3.86 H Est Glomerular Filtrat Rate mL/min Glucose Level 126 Calcium Level 8.1 L Total Bilirubin 6.6 H Direct Bilirubin 5.80 H Indirect Bilirubin 0.8 Aspartate Amino 137 H Transf (AST/SGOT) Alanine 38 Aminotransferase (ALT/SG PT) Alkaline Phosphatase 202 H Total Protein 5.0 L Albumin 2.1 L Test 01/20/19 04:32 01/20/19 10:35 01/20/19 13:22 01/20/19 17:28 Bedside Glucose 119 126 131 135 Medications Medication Current Medications Vancomycin HCl (Vanco Iv Per Pharmacy) VANCOMYCIN PER PHARMACY PER PROTOCOL XX ; Start 01/13/19 at 02:00 IV Flush (NS 3 ml) 3 ml PER PROTOCOL IV ; Start 01/13/19 at 02:00 Acetaminophen (Tylenol Tab) 650 mg Q6H PRN PO .PAIN 1-3 OR TEMP Last ad ministered on 01/18/19 08:28; Admin Dose 650 MG; Start 01/13/19 at 02:00 Acetaminophen/ Hydrocodone Bitart ([place] (5/325)) 1 tab Q6H PRN PO .PAIN 4-6 Last administered on 01/15/19 13:40; Admin Dose 1 TAB; Start 01/13/19 at 02:00 Docusate Sodium (Colace) 100 mg Q12H PRN PO .CONSTIPATION; Start 01/13/19 at 02:00 Bisacodyl (Dulcolax) 5 mg DAILY PRN PO .CONSTIPATION; Start 01/13/19 at 02:00 Heparin Sodium (Porcine) (Heparin (5000 Units/1ml)) 5,000 unit Q8 SC Last administered on 01/19/19 05:29; Admin Dose 5,000 UNIT; Start 01/13/19 at 06:00; Status Hold Atorvastatin Calcium (Lipitor) 40 mg DAILY@21 PO Last administered on 01/19/19 20:11; Admin Dose 40 MG; Start 01/13/19 at 21:00 Carvedilol (Coreg) 12.5 mg BID PO ; Start 01/13/19 at 09:00; Status Hold Ferrous Sulfate (Ferrous Sulfate (Ec)) 325 mg BID PO Last administered on 01/20/19 10:40; Admin Dose 325 MG; Start 01/13/19 at 09:00 Folic Acid (Folic Acid) 1 mg DAILY PO Last administered on 01/20/19 10:40; Admin Dose 1 MG; Start 01/13/19 at 09:00 Insulin Glargine (Lantus) 20 units QHS SC Last administered on 01/14/19 22:04; Admin Dose 20 UNITS; Start 01/13/19 at 21:00; Status Hold Aspirin (Aspirin) 81 mg DAILY PO Last administered on 01/20/19 10:39; Admin Dose 81 MG; Start 01/13/19 at 11:00 Miscellaneous Information 1 ea NOTE XX ; Start 01/13/19 at 15:30 Glucose (Glutose) 15 gm Q15M PRN PO DECREASED GLUCOSE; Start 01/13/19 at 15:30 Glucose (Glutose) 22.5 gm Q15M PRN PO DECREASED GLUCOSE; Start 01/13/19 at 15:30 Dextrose (D50w Syringe) 25 ml Q15M PRN IV DECREASED GLUCOSE; Start 01/13/19 at 15:30 Dextrose (D50w Syringe) 50 ml Q15M PRN IV DECREASED GLUCOSE; Start 01/13/19 at 15:30 Glucagon (Glucagen) 1 mg Q15M PRN IM DECREASED GLUCOSE; Start 01/13/19 at 15:30 Glucose (Glutose) 15 gm Q15M PRN BUCCAL DECREASED GLUCOSE; Start 01/13/19 at 15:30 Epoetin Cam-epbx (Retacrit (Esrd)) 4,000 unit TuThSa@1700 SC Last administered on 01/19/19 18:05; Admin Dose 4,000 UNIT; Start 01/14/19 at 17:00 Levalbuterol (Xopenex Neb) 1.25 mg Q4H RESP THERAPY PRN HHN dyspnea; Start 01/14/19 at 19:00 Fentanyl 100 ml @ 5 mls/hr TITRATE IV Last administered on 01/18/19at 21:11; Admin Dose 5 MLS/HR; Start 01/15/19 at 17:30 Meropenem/Sodium Chloride 50 ml @ 100 mls/hr Q12H IVPB Last administered on 01/20/19 17:19; Admin Dose 100 MLS/HR; Start 01/15/19 at 17:30 Norepinephrine 250 ml @ 1.875 mls/ hr TITRATE IV Last administered on 01/20/19 13:23; Admin Dose 24.375 MLS/HR; Start 01/15/19 at 17:30 Insulin Aspart (Novolog Insulin Pen) NOVOLOG *MILD* ALGORITHM Q4 SC Last administered on 01/19/19 20:16; Admin Dose 1 UNIT; Start 01/15/19 at 17:55 Ipratropium [place] (Atrovent Hfa) 4 puff Q6H RESP THERAPY INH Last administered on 01/20/19 15:13; Admin Dose 4 PUFF; Start 01/15/19 at 20:00 Albuterol (Ventolin Hfa) 4 puff Q6H RESP THERAPY INH Last administered on 01/20/19 15:14; Admin Dose 4 PUFF; Start 01/15/19 at 20:00 Famotidine (Pepcid Iv) 20 mg Q24H IV Last administered on 01/20/19 05:27; Admin Dose 20 MG; Start 01/16/19 at 06:00 Propofol 100 ml @ 2.46 mls/hr Q12H IV Last administered on 01/18/19 00:27; Admin Dose 9.84 MLS/HR; Start 01/15/19 at 23:00 Vasopressin 60 unit/Dextrose 60 ml @ 1.2 mls/hr Q12H IV Last administered on 01/18/19 05:05; Admin Dose 2.4 MLS/HR; Start 01/16/19 at 02:30 Phenylephrine HCl 250 ml @ 75 mls/hr TITRATE IV ; Start 01/16/19 at 10:30 Caspofungin 35 mg/ Sodium Chloride 250 ml @ 250 mls/hr Q24H IVPB Last administered on 01/20/19 17:19; Admin Dose 250 MLS/HR; Start 01/17/19 at 15:00 Docusate Sodium (Colace Liquid Cup) 100 mg BID NGT Last administered on 01/20/19 10:40; Admin Dose 100 MG; Start 01/17/19 at 21:00 Collagenase (Santyl) 1 applic BID TOP Last administered on 01/20/19 10:40; Admin Dose 1 APPLIC; Start 01/17/19 at 21:00 Dexmedetomidine HCl 200 mcg/ Sodium Chloride 50 ml @ 4.1 mls/hr TITRATE IV Last administered on 01/19/19 06:46; Admin Dose 4.1 MLS/HR; Start 01/18/19 at 08:00 Albumin Human 100 ml @ 100 mls/hr DURING DIALYSIS PRN IV BLOOD PRESSURE SUPPORT Last administered on 01/18/19 11:21; Admin Dose 100 MLS/HR; Start 01/18/19 at 11:30 Lactulose (Enulose) 20 gm BID PO Last administered on 01/20/19 10:39; Admin Dose 20 GM; Start 01/19/19 at 21:00 Metoclopramide HCl (Reglan) 5 mg Q6 IV Last administered on 01/20/19 17:23; Admin Dose 5 MG; Start 01/19/19 at 20:00 Amiodarone HCl (Cordarone) 400 mg TID PO ; Start 01/20/19 at 21:00 Miscellaneous Information (*Rx Drug Level Order Reminder*) RANDOM VANCO W/ AM LABS... 0500 ONCE XX ; Start 01/21/19 at 05:00; Stop 01/21/19 at 05:01 REJI RUBIO NP Jan 20, 2019 17:44
[2019-01-20] MEDS: ATORVASTATIN 40 MG TAB PO SCH (20:50)
[2019-01-20] MEDS: ALBUMIN HUMAN 25% 100 ML IV PRN (23:33)
[2019-01-21] VITALS (104 sets, daily range): BP systolic 71–129; BP diastolic 34–86; PULSE 94–144; RESP 15–33
[2019-01-21] MEDS: METOCLOPRAMIDE 10 MG INJ IV SCH ×4 (00:40→17:33)
[2019-01-21] MEDS: INSULIN ASPART [NOVOLOG] 3 ML PEN SC SCH ×6 (00:42→20:32)
[2019-01-21] MEDS: IPRATROPIUM (HFA) 12.9 GM INHALER INH SCH ×4 (01:36→19:32)
[2019-01-21] MEDS: ALBUTEROL HFA 8 GM INHALER INH SCH ×3 (01:36→13:36)
[2019-01-21] MEDS: VASOPRESSIN 60 UNIT in DEXTROSE 5% 57 ML IV SCH ×2 (02:26→12:49)
[2019-01-21] MEDS: NORepinephrine 8MG/250 ML (PMX 250 ML IV SCH ×3 (02:48→21:05)
[2019-01-21] MEDS ORDERED: AMIODARONE 150MG/D5W BOLUS 100 ML IV ONE (03:00)
[2019-01-21] MEDS ORDERED: AMIODARONE 900 MG in DEXTROSE 5% 482 ML IV SCH (03:00)
[2019-01-21] MEDS: FAMOTIDINE 20 MG INJ IV SCH (05:23)
[2019-01-21] MEDS: MEROPENEM 500MG/50 ML (PMX) 50 ML IVPB SCH (05:24)
--- NOTE | 2019-01-21 08:27 | CONS ---
Assessment/Plan Assessment/Plan Hospital Course (Demo Recall) Chest x-ray showing bilateral pneumonia. Ventilator setting; AC of 20, tidal volume 500, PEEP of 5, 40% FiO2. Patient is currently on fentanyl 25 mics per hour, Precedex drip as well. Assessment and recommendations; 1. Patient admitted with severe bilateral pneumonia still requiring full me chanical ventilatory support. 2. Some element of encephalopathy. Patient however currently is sedated. 3. History of prior CABG. 4. Anemia and severe thrombocytopenia. 5. Chronic renal failure, dialysis dependent. 6. History of cardiac arrhythmia. 7. History of hypertension and diabetes. Hold further sedation to assess mental status. Continue current supportive care. Hemodialysis per military pay clerk. Prognosis is guarded at this point. 35 minutes of critical care time was spent evaluating the patient. Assessment/Plan (Daily) Chest x-ray showing pulmonary edema with cardiomegaly. Left lower lobe infiltrate is present as well. Ventilator setting; AC of 20, tidal volume 500, PEEP of 5, 70% FiO2. Patient is currently on amiodarone drip 1 mg/min, Levophed 30 mics per minute. Assessment and recommendations; next 1. Patient admitted with respiratory failure due to severe bilateral pneumonia with CHF. Very little interval improvement since admission. 2. Chronic atrial ablation, A. fib with RVR. Currently on amiodarone drip. 3. Persistent hypotension, combination of CHF and sepsis. 4. Anemia and severe thrombocytopenia with stable platelet count. No overt bleeding noted. 5. End-stage renal disease, dialysis dependent. 6. History of hypertension and diabetes. 7. Prior CABG. 8. Acute encephalopathy. Patient has been off sedation for more than 36 hours now. Continue current supportive care. Hemodialysis per military pay clerk. Prognosis is guarded. 35 minutes of critical care time was spent evaluating the patient. Consultation Date/Type/Reason Admit Date/Time January 13, 2019 at 00:07 Initial Consult Date 01/17/19 Type of Consult Pulmonary/critical care Patient's condition is critical. Patient is currently sedated. Patient however has remained hemodynamically stable. General exam; elderly male, orally intubated, sedated, currently in no distress. Date/Time of Note DATE: 01/21/19 TIME: 08:24 24 HR Interval Summary Free Text/Dictation Patient's condition remains critical. Patient still requiring Levophed as well as amiodarone drips. Remains awake but noncommunicative. General exam; elderly male, orally intubated, awake but noncommunicative. Currently in no distress. Exam/Review of Systems Exam Vitals Vital Signs Date Temp Pulse Resp B/P (MAP) Pulse Ox O2 O2 Flow FiO2 Time Delivery Rate 01/21/19 99.0 114 20 89/45 (60) 97 Mechanical 08:00 Ventilator 01/21/19 70 07:58 Intake and Output 01/20/19 01/20/19 01/21/19 1515:00 23:00 07:00 IntakeIntake Total 223.00 ml 510.125 ml 521.3 ml OutputOutput Total 0 ml 200 ml 1300 ml BalanceBalance 223.00 ml 310.125 ml -778.7 ml Exam H EENT exam; supple neck, positive JVD. No lymphadenopathy. Midline trachea. No thyromegaly. Orally intubated. Patient has fair dentition. Orogastric tube in place. Pupils are small bilaterally. Chest exam; diminished breath sounds throughout. S1-S2 audible, no murmurs. Irregular rhythm. There is a well-healed sternal scar. Abdomen exam; soft, protuberant. No organomegaly. Bowel sounds audible. Extremity exam; no peripheral edema or clubbing. POWER LINE INSTALLER AND REPAIRER exam; patient is awake but noncommunicative. Results Result Diagram: 01/21/19 0440 01/21/19 0426 Results 24hrs Laboratory Tests Test 01/20/19 10:35 01/20/19 13:22 01/20/19 17:28 01/20/19 20:53 Bedside Glucose 126 131 135 127 Test 01/21/19 00:42 01/21/19 04:26 01/21/19 04:30 01/21/19 04:40 Bedside Glucose 113 147 Sodium Level 142 Potassium Level 4.1 Chloride Level 104 Carbon Dioxide 26 Level Anion Gap 12 Blood Urea 21 H Nitrogen Creatinine 2.88 H Est Glomerular Filtrat Rate mL/min Glucose Level 124 Calcium Level 8.8 Random Cortisol 16.5 White Blood Count 19.6 H Red Blood Count 2.68 L Hemoglobin 8.6 L Hematocrit 26.4 L Mean Corpuscular 98.5 Volume Mean Corpuscular 32.1 Hemoglobin Mean Corpuscular 32.6 Hemoglobin Concent Red Cell 17.2 H Distribution Width Platelet Count 83 L Mean Platelet 13.1 H Volume Immature 1.600 H Granulocytes % Neutrophils % 82.6 H Segmented 87 H Neutrophils % (Manual) Band Neutrophils % 1 (Manual) Lymphocytes % 8.0 L Lymphocytes % 6 L (Manual) Monocytes % 4.1 Monocytes % 4 (Manual) Eosinophils % 2.6 Eosinophils % 1 (Manual) Basophils % 1.1 Basophils % 1 (Manual) Nucleated Red 2 H Blood Cells % Immature 0.310 H Granulocytes # Neutrophils # 16.2 H Neutrophils # 17.1 H (Manual) Band Neutrophils # 0.1 Lymphocytes 1.1 (Manual) Lymphocytes # 1.6 Monocytes # 0.8 Monocytes # 0.7 (Manual) Eosinophils # 0.5 Basophils # 0.2 H Basophils # 0.1 H (Manual) Nucleated Red 0.1 H Blood Cells # Platelet Estimate DECREASED Polychromasia 1+ Poikilocytosis 1+ Anisocytosis 2+ Macrocytosis 2+ Test 01/21/19 04:47 01/21/19 05:02 01/21/19 07:00 Phosphorus Level 3.5 Magnesium Level 2.2 Random Vancomycin 12.7 Level Blood Gas Specimen Blood arterial Source Arterial Blood 01/21/2019 7:30:12 Date Drawn AM Arterial Blood pH 7.435 (Temp corrected) Arterial Blood 39.9 pCO2 (Temp correct) Arterial Blood pO2 80.9 (Temp corrected) Arterial Blood 26.2 H HCO3 Arterial Blood 1.9 Base Excess Arterial Blood 95.0 Oxygen Saturation Jaiden Test N/A Arterial Blood Gas Right Brachial Puncture Site Arterial 0.1 Blood Carboxyhemog lobin Arterial Blood 0.3 Methemoglobin Blood Gas A-a O2 375.3 H Differential Oxyhemoglobin 94.6 Percent Blood Gas 37.0 Temperature Blood Gas 20.0 Respiration Rate Blood Gas Actual 25 Respiration Rate Blood Gas Modality VENT - AC FiO2 70.0 Blood Gas Tidal 500.0 Volume Blood Gas Low PEEP 5.0 Setting Blood Gas Notified CW Whom Blood Gas Notified 01/21/2019 8:00:17 Time AM Medications Medication Current Medications Vancomycin HCl (Vanco Iv Per Pharmacy) VANCOMYCIN PER PHARMACY PER PROTOCOL XX ; Start 01/13/19 at 02:00 IV Flush (NS 3 ml) 3 ml PER PROTOCOL IV ; Start 01/13/19 at 02:00 Acetaminophen (Tylenol Tab) 650 mg Q6H PRN PO .PAIN 1-3 OR TEMP Last administered on 01/18/19 08:28; Admin Dose 650 MG; Start 01/13/19 at 02:00 Acetaminophen/ Hydrocodone Bitart ([place] (5/325)) 1 tab Q6H PRN PO .PAIN 4-6 Last administered on 01/15/19 13:40; Admin Dose 1 TAB; Start 01/13/19 at 02:00 Docusate Sodium (Colace) 100 mg Q12H PRN PO .CONSTIPATION; Start 01/13/19 at 02:00 Bisacodyl (Dulcolax) 5 mg DAILY PRN PO .CONSTIPATION; Start 01/13/19 at 02:00 Heparin Sodium (Porcine) (Heparin (5000 Units/1ml)) 5,000 unit Q8 SC Last administered on 01/19/19 05:29; Admin Dose 5,000 UNIT; Start 01/13/19 at 06:00; Status Hold Atorvastatin Calcium (Lipitor) 40 mg DAILY@21 PO Last administered on 01/20/19 20:50; Admin Dose 40 MG; Start 01/13/19 at 21:00 Carvedilol (Coreg) 12.5 mg BID PO ; Start 01/13/19 at 09:00; Status Hold Ferrous Sulfate (Ferrous Sulfate (Ec)) 325 mg BID PO Last administered on 01/20/19 20:50; Admin Dose 325 MG; Start 01/13/19 at 09:00 Folic Acid (Folic Acid) 1 mg DAILY PO Last administered on 01/20/19 10:40; Admin Dose 1 MG; Start 01/13/19 at 09:00 Insulin Glargine (Lantus) 20 units QHS SC Last administered on 01/14/19 22:04; Admin Dose 20 UNITS; Start 01/13/19 at 21:00; Status Hold Aspirin (Aspirin) 81 mg DAILY PO Last administered on 01/20/19 10:39; Admin Dose 81 MG; Start 01/13/19 at 11:00 Miscellaneous Information 1 ea NOTE XX ; Start 01/13/19 at 15:30 Glucose (Glutose) 15 gm Q15M PRN PO DECREASED GLUCOSE; Start 01/13/19 at 15:30 Glucose (Glutose) 22.5 gm Q15M PRN PO DECREASED GLUCOSE; Start 01/13/19 at 15:30 Dextrose (D50w Syringe) 25 ml Q15M PRN IV DECREASED GLUCOSE; Start 01/13/19 at 15:30 Dextrose (D50w Syringe) 50 ml Q15M PRN IV DECREASED GLUCOSE; Start 01/13/19 at 15:30 Glucagon (Glucagen) 1 mg Q15M PRN IM DECREASED GLUCOSE; Start 01/13/19 at 15:30 Glucose (Glutose) 15 gm Q15M PRN BUCCAL DECREASED GLUCOSE; Start 01/13/19 at 15:30 Epoetin Cam-epbx (Retacrit (Esrd)) 4,000 unit TuThSa@1700 SC Last administered on 01/19/19at 18:05; Admin Dose 4,000 UNIT; Start 01/14/19 at 17:00 Levalbuterol (Xopenex Neb) 1.25 mg Q4H RESP THERAPY PRN HHN dyspnea; Start 01/14/19 at 19:00 Fentanyl 100 ml @ 5 mls/hr TITRATE IV Last administered on 01/18/19at 21:11; Admin Dose 5 MLS/HR; Start 01/15/19 at 17:30 Meropenem/Sodium Chloride 50 ml @ 100 mls/hr Q12H IVPB Last administered on 01/21/19at 05:24; Admin Dose 100 MLS/HR; Start 01/15/19 at 17:30 Norepinephrine 250 ml @ 1.875 mls/ hr TITRATE IV Last administered on 01/21/19at 02:48; Admin Dose 37.5 MLS/HR; Start 01/15/19 at 17:30 Insulin Aspart (Novolog Insulin Pen) NOVOLOG *MILD* ALGORITHM Q4 SC Last administered on 01/21/19at 04:37; Admin Dose 1 UNIT; Start 01/15/19 at 17:55 Ipratropium [place] (Atrovent Hfa) 4 puff Q6H RESP THERAPY INH Last administered on 01/21/19 01:36; Admin Dose 4 PUFF; Start 01/15/19 at 20:00 Albuterol (Ventolin Hfa) 4 puff Q6H RESP THERAPY INH Last administered on 01/21/19 01:36; Admin Dose 4 PUFF; Start 01/15/19 at 20:00 Famotidine (Pepcid Iv) 20 mg Q24H IV Last administered on 01/21/19 05:23; Admin Dose 20 MG; Start 01/16/19 at 06:00 Propofol 100 ml @ 2.46 mls/hr Q12H IV Last administered on 01/18/19 00:27; Admin Dose 9.84 MLS/HR; Start 01/15/19 at 23:00 Vasopressin 60 unit/Dextrose 60 ml @ 1.2 mls/hr Q12H IV Last administered on 01/18/19 05:05; Admin Dose 2.4 MLS/HR; Start 01/16/19 at 02:30 Phenylephrine HCl 250 ml @ 75 mls/hr TITRATE IV ; Start 01/16/19 at 10:30 Caspofungin 35 mg/ Sodium Chloride 250 ml @ 250 mls/hr Q24H IVPB Last administered on 01/20/19 17:19; Admin Dose 250 MLS/HR; Start 01/17/19 at 15:00 Docusate Sodium (Colace Liquid Cup) 100 mg BID NGT Last administered on 20:50; Admin Dose 100 MG; Start 01/17/19 at 21:00 Collagenase (Santyl) 1 applic BID TOP Last administered on 01/20/19 20:52; Admin Dose 1 APPLIC; Start 01/17/19 at 21:00 Dexmedetomidine HCl 200 mcg/ Sodium Chloride 50 ml @ 4.1 mls/hr TITRATE IV Last administered on 01/19/19 06:46; Admin Dose 4.1 MLS/HR; Start 01/18/19 at 08:00 Albumin Human 100 ml @ 100 mls/hr DURING DIALYSIS PRN IV BLOOD PRESSURE SUPPORT Last administered on 01/20/19 23:33; Admin Dose 100 MLS/HR; Start 01/18/19 at 11:30 Lactulose (Enulose) 20 gm BID PO Last administered on 01/20/19 20:50; Admin Dose 20 GM; Start 01/19/19 at 21:00 Metoclopramide HCl (Reglan) 5 mg Q6 IV Last administered on 01/21/19 05:23; Admin Dose 5 MG; Start 01/19/19 at 20:00 Amiodarone HCl (Cordarone) 400 mg TID PO Last administered on 01/20/19 20:50; Admin Dose 400 MG; Start 01/20/19 at 21:00 Amiodarone HCl 900 mg/Dextrose 500 ml @ 0 mls/hr Q0M IV Last administered on 01/21/19at 02:54; Admin Dose 33.3 MLS/HR; Start 01/21/19 at 03:00 BENIGNO MOBLEY Jan 21, 2019 08:27
--- NOTE | 2019-01-21 08:36 | PN ---
Date/Time of Note Date/Time of Note DATE: 01/21/19 TIME: 08:28 Assessment/Plan VTE Prophylaxis Risk score (from Ns)>0 risk: 13 SCD applied (from Ns): Yes Pharmacological prophylaxis: heparin Lines/Catheters IV Catheter Type (from Nrsg): Central Line Central line still needed: Yes Urinary Cath still in place: No Assessment/Plan Hospital Course 1. Sepsis shock secondary to underlying healthcare associated pneumonia - continue abx - ID following 2. Hypoxic respiratory failure - multifactorial: pna, esrd - continue breathing tx - intubated - vent weaning as tolerated - continue HD - appeals specialist following - consider bronchoscopy if not improving 4. NSTEMI type II secondary to demand - Echo with preserved EF - troponin marker downward trended - inorganic chemist following 5 Coronary artery disease: History of CABG - statin/asa 6. End-stage renal disease - continue HD - f/u nephro recs - correct electrolytes as needed 7. Diabetes mellitus - A1c 4.7 - Continue insulin regimen 8. Hypertension - hypotensive - on vasopressors - titrate down 9. Lower back pain with left leg weakness: Possibly resulting in sciatica. - Continue PT once more stable 10. elevated LFT - monitor LFT - is upward trending - abd imaging 01.17.19: - Nodular liver surface, concerning for cirrhosis. Mild ascites. - Findings compatible with mild diffuse colitis, as above. - Cholelithiasis, without evidence for cholecystitis. - Mild fat-containing bilateral inguinal hernias, without incarceration. Nasogastric tube tip is in the stomach. - GI consult - Plan for MRCP per GI once more stable 11. afib (new) - continue on amiodarone DISPO.PLAN: continue HD and abx. on amiodarone for afib. will f/u family for goals of care. f/u labs. monitor for improvement of respiratory status. f/u chest imaging as needed Discussed plan of care with Dr. Nieves More than 30 minutes spent on this encounter Result Diagram: 01/21/19 0440 01/21/19 0426 Results 24hrs Laboratory Tests Test 01/20/19 10:35 01/20/19 13:22 01/20/19 17:28 01/20/19 20:53 Bedside Glucose 126 131 135 127 Test 01/21/19 00:42 01/21/19 04:26 01/21/19 04:30 01/21/19 04:40 Bedside Glucose 113 147 Sodium Level 142 Potassium Level 4.1 Chloride Level 104 Carbon Dioxide 26 Level Anion Gap 12 Blood Urea 21 H Nitrogen Creatinine 2.88 H Est Glomerular Filtrat Rate mL/min Glucose Level 124 Calcium Level 8.8 Random Cortisol 16.5 White Blood Count 19.6 H Red Blood Count 2.68 L Hemoglobin 8.6 L Hematocrit 26.4 L Mean Corpuscular 98.5 Volume Mean Corpuscular 32.1 Hemoglobin Mean Corpuscular 32.6 Hemoglobin Concent Red Cell 17.2 H Distribution Width Platelet Count 83 L Mean Platelet 13.1 H Volume Immature 1.600 H Granulocytes % Neutrophils % 82.6 H Segmented 87 H Neutrophils % (Manual) Band Neutrophils % 1 (Manual) Lymphocytes % 8.0 L Lymphocytes % 6 L (Manual) Monocytes % 4.1 Monocytes % 4 (Manual) Eosinophils % 2.6 Eosinophils % 1 (Manual) Basophils % 1.1 Basophils % 1 (Manual) Nucleated Red 2 H Blood Cells % Immature 0.310 H Granulocytes # Neutrophils # 16.2 H Neutrophils # 17.1 H (Manual) Band Neutrophils # 0.1 Lymphocytes 1.1 (Manual) Lymphocytes # 1.6 Monocytes # 0.8 Monocytes # 0.7 (Manual) Eosinophils # 0.5 Basophils # 0.2 H Basophils # 0.1 H (Manual) Nucleated Red 0.1 H Blood Cells # Platelet Estimate DECREASED Polychromasia 1+ Poikilocytosis 1+ Anisocytosis 2+ Macrocytosis 2+ Test 01/21/19 04:47 01/21/19 05:02 01/21/19 07:00 Phosphorus Level 3.5 Magnesium Level 2.2 Random Vancomycin 12.7 Level Blood Gas Specimen Blood arterial Source Arterial Blood 01/21/2019 7:30:12 Date Drawn AM Arterial Blood pH 7.435 (Temp corrected) Arterial Blood 39.9 pCO2 (Temp correct) Arterial Blood pO2 80.9 (Temp corrected) Arterial Blood 26.2 H HCO3 Arterial Blood 1.9 Base Excess Arterial Blood 95.0 Oxygen Saturation Jaiden Test N/A Arterial Blood Gas Right Brachial Puncture Site Arterial 0.1 Blood Carboxyhemog lobin Arterial Blood 0.3 Methemoglobin Blood Gas A-a O2 375.3 H Differential Oxyhemoglobin 94.6 Percent Blood Gas 37.0 Temperature Blood Gas 20.0 Respiration Rate Blood Gas Actual 25 Respiration Rate Blood Gas Modality VENT - AC FiO2 70.0 Blood Gas Tidal 500.0 Volume Blood Gas Low PEEP 5.0 Setting Blood Gas Notified CW Whom Blood Gas Notified 01/21/2019 8:00:17 Time AM Subjective 24 Hr Interval Summary Free Text/Dictation remains intubated on mech vent. Exam/Review of Systems Exam Vitals Vital Signs Date Temp Pulse Resp B/P (MAP) Pulse Ox O2 O2 Flow FiO2 Time Delivery Rate 01/21/19 99.0 114 20 89/45 (60) 97 Mechanical 08:00 Ventilator 01/21/19 70 07:58 Intake and Output 01/20/19 01/20/19 01/21/19 1515:00 23:00 07:00 IntakeIntake Total 223.00 ml 510.125 ml 521.3 ml OutputOutput Total 0 ml 200 ml 1300 ml BalanceBalance 223.00 ml 310.125 ml -778.7 ml Exam Constitutional: No alert, No oriented (intubated and sedated ) Eyes: icteric Respiratory: no wheezing noted (on mech vent ), Cardiac: other (regular rate ) Gastrointestinal: soft Genitourinary - Male: other (juarez catheter in place ) Neurological: No POLICE COMMANDING OFFICER II-XII intact, No nl mental status (intubated/sedated ) Skin: other (decubitus ulcer sacral area ) Results Results 24hrs Laboratory Tests Test 01/20/19 10:35 01/20/19 13:22 01/20/19 17:28 01/20/19 20:53 Bedside Glucose 126 131 135 127 Test 01/21/19 00:42 01/21/19 04:26 01/21/19 04:30 01/21/19 04:40 Bedside Glucose 113 147 Sodium Level 142 Potassium Level 4.1 Chloride Level 104 Carbon Dioxide 26 Level Anion Gap 12 Blood Urea 21 H Nitrogen Creatinine 2.88 H Est Glomerular Filtrat Rate mL/min Glucose Level 124 Calcium Level 8.8 Random Cortisol 16.5 White Blood Count 19.6 H Red Blood Count 2.68 L Hemoglobin 8.6 L Hematocrit 26.4 L Mean Corpuscular 98.5 Volume Mean Corpuscular 32.1 Hemoglobin Mean Corpuscular 32.6 Hemoglobin Concent Red Cell 17.2 H Distribution Width Platelet Count 83 L Mean Platelet 13.1 H Volume Immature 1.600 H Granulocytes % Neutrophils % 82.6 H Segmented 87 H Neutrophils % (Manual) Band Neutrophils % 1 (Manual) Lymphocytes % 8.0 L Lymphocytes % 6 L (Manual) Monocytes % 4.1 Monocytes % 4 (Manual) Eosinophils % 2.6 Eosinophils % 1 (Manual) Basophils % 1.1 Basophils % 1 (Manual) Nucleated Red 2 H Blood Cells % Immature 0.310 H Granulocytes # Neutrophils # 16.2 H Neutrophils # 17.1 H (Manual) Band Neutrophils # 0.1 Lymphocytes 1.1 (Manual) Lymphocytes # 1.6 Monocytes # 0.8 Monocytes # 0.7 (Manual) Eosinophils # 0.5 Basophils # 0.2 H Basophils # 0.1 H (Manual) Nucleated Red 0.1 H Blood Cells # Platelet Estimate DECREASED Polychromasia 1+ Poikilocytosis 1+ Anisocytosis 2+ Macrocytosis 2+ Test 01/21/19 04:47 01/21/19 05:02 01/21/19 07:00 Phosphorus Level 3.5 Magnesium Level 2.2 Random Vancomycin 12.7 Level Blood Gas Specimen Blood arterial Source Arterial Blood 01/21/2019 7:30:12 Date Drawn AM Arterial Blood pH 7.435 (Temp corrected) Arterial Blood 39.9 pCO2 (Temp correct) Arterial Blood pO2 80.9 (Temp corrected) Arterial Blood 26.2 H HCO3 Arterial Blood 1.9 Base Excess Arterial Blood 95.0 Oxygen Saturation Jaiden Test N/A Arterial Blood Gas Right Brachial Puncture Site Arterial 0.1 Blood Carboxyhemog lobin Arterial Blood 0.3 Methemoglobin Blood Gas A-a O2 375.3 H Differential Oxyhemoglobin 94.6 Percent Blood Gas 37.0 Temperature Blood Gas 20.0 Respiration Rate Blood Gas Actual 25 Respiration Rate Blood Gas Modality VENT - AC FiO2 70.0 Blood Gas Tidal 500.0 Volume Blood Gas Low PEEP 5.0 Setting Blood Gas Notified CW Whom Blood Gas Notified 01/21/2019 8:00:17 Time AM Medications Medication Current Medications Vancomycin HCl (Vanco Iv Per Pharmacy) VANCOMYCIN PER PHARMACY PER PROTOCOL XX ; Start 01/13/19 at 02:00 IV Flush (NS 3 ml) 3 ml PER PROTOCOL IV ; Start 01/13/19 at 02:00 Acetaminophen (Tylenol Tab) 650 mg Q6H PRN PO .PAIN 1-3 OR TEMP Last admin istered on 01/18/19 08:28; Admin Dose 650 MG; Start 01/13/19 at 02:00 Acetaminophen/ Hydrocodone Bitart ([place] (5/325)) 1 tab Q6H PRN PO .PAIN 4-6 Last administered on 01/15/19 13:40; Admin Dose 1 TAB; Start 01/13/19 at 02:00 Docusate Sodium (Colace) 100 mg Q12H PRN PO .CONSTIPATION; Start 01/13/19 at 02:00 Bisacodyl (Dulcolax) 5 mg DAILY PRN PO .CONSTIPATION; Start 01/13/19 at 02:00 Heparin Sodium (Porcine) (Heparin (5000 Units/1ml)) 5,000 unit Q8 SC Last administered on 01/19/19 05:29; Admin Dose 5,000 UNIT; Start 01/13/19 at 06:00; Status Hold Atorvastatin Calcium (Lipitor) 40 mg DAILY@21 PO Last administered on 01/20/19 20:50; Admin Dose 40 MG; Start 01/13/19 at 21:00 Carvedilol (Coreg) 12.5 mg BID PO ; Start 01/13/19 at 09:00; Status Hold Ferrous Sulfate (Ferrous Sulfate (Ec)) 325 mg BID PO Last administered on 01/20/19 20:50; Admin Dose 325 MG; Start 01/13/19 at 09:00 Folic Acid (Folic Acid) 1 mg DAILY PO Last administered on 01/20/19 10:40; Admin Dose 1 MG; Start 01/13/19 at 09:00 Insulin Glargine (Lantus) 20 units QHS SC Last administered on 01/14/19 22:04; Admin Dose 20 UNITS; Start 01/13/19 at 21:00; Status Hold Aspirin (Aspirin) 81 mg DAILY PO Last administered on 01/20/19 10:39; Admin Dose 81 MG; Start 01/13/19 at 11:00 Miscellaneous Information 1 ea NOTE XX ; Start 01/13/19 at 15:30 Glucose (Glutose) 15 gm Q15M PRN PO DECREASED GLUCOSE; Start 01/13/19 at 15:30 Glucose (Glutose) 22.5 gm Q15M PRN PO DECREASED GLUCOSE; Start 01/13/19 at 15:30 Dextrose (D50w Syringe) 25 ml Q15M PRN IV DECREASED GLUCOSE; Start 01/13/19 at 15:30 Dextrose (D50w Syringe) 50 ml Q15M PRN IV DECREASED GLUCOSE; Start 01/13/19 at 15:30 Glucagon (Glucagen) 1 mg Q15M PRN IM DECREASED GLUCOSE; Start 01/13/19 at 15:30 Glucose (Glutose) 15 gm Q15M PRN BUCCAL DECREASED GLUCOSE; Start 01/13/19 at 15:30 Epoetin Cam-epbx (Retacrit (Esrd)) 4,000 unit TuThSa@1700 SC Last administered on 01/19/19 18:05; Admin Dose 4,000 UNIT; Start 01/14/19 at 17:00 Levalbuterol (Xopenex Neb) 1.25 mg Q4H RESP THERAPY PRN HHN dyspnea; Start 01/14/19 at 19:00 Fentanyl 100 ml @ 5 mls/hr TITRATE IV Last administered on 01/18/19at 21:11; Admin Dose 5 MLS/HR; Start 01/15/19 at 17:30 Meropenem/Sodium Chloride 50 ml @ 100 mls/hr Q12H IVPB Last administered on 01/21/19 05:24; Admin Dose 100 MLS/HR; Start 01/15/19 at 17:30 Norepinephrine 250 ml @ 1.875 mls/ hr TITRATE IV Last administered on 01/21/19 02:48; Admin Dose 37.5 MLS/HR; Start 01/15/19 at 17:30 Insulin Aspart (Novolog Insulin Pen) NOVOLOG *MILD* ALGORITHM Q4 SC Last administered on 01/21/19 04:37; Admin Dose 1 UNIT; Start 01/15/19 at 17:55 Ipratropium [place] (Atrovent Hfa) 4 puff Q6H RESP THERAPY INH Last administered on 01/21/19 01:36; Admin Dose 4 PUFF; Start 01/15/19 at 20:00 Albuterol (Ventolin Hfa) 4 puff Q6H RESP THERAPY INH Last administered on 01/21/19 01:36; Admin Dose 4 PUFF; Start 01/15/19 at 20:00 Famotidine (Pepcid Iv) 20 mg Q24H IV Last administered on 01/21/19 05:23; Admin Dose 20 MG; Start 01/16/19 at 06:00 Propofol 100 ml @ 2.46 mls/hr Q12H IV Last administered on 01/18/19 00:27; Admin Dose 9.84 MLS/HR; Start 01/15/19 at 23:00 Vasopressin 60 unit/Dextrose 60 ml @ 1.2 mls/hr Q12H IV Last administered on 01/18/19 05:05; Admin Dose 2.4 MLS/HR; Start 01/16/19 at 02:30 Phenylephrine HCl 250 ml @ 75 mls/hr TITRATE IV ; Start 01/16/19 at 10:30 Caspofungin 35 mg/ Sodium Chloride 250 ml @ 250 mls/hr Q24H IVPB Last administered on 01/20/19 17:19; Admin Dose 250 MLS/HR; Start 01/17/19 at 15:00 Docusate Sodium (Colace Liquid Cup) 100 mg BID NGT Last administered on 01/20/19 20:50; Admin Dose 100 MG; Start 01/17/19 at 21:00 Collagenase (Santyl) 1 applic BID TOP Last administered on 01/20/19 20:52; Admin Dose 1 APPLIC; Start 01/17/19 at 21:00 Dexmedetomidine HCl 200 mcg/ Sodium Chloride 50 ml @ 4.1 mls/hr TITRATE IV Last administered on 01/19/19 06:46; Admin Dose 4.1 MLS/HR; Start 01/18/19 at 0 8:00 Albumin Human 100 ml @ 100 mls/hr DURING DIALYSIS PRN IV BLOOD PRESSURE SUPPORT Last administered on 01/20/19 23:33; Admin Dose 100 MLS/HR; Start 01/18/19 at 11:30 Lactulose (Enulose) 20 gm BID PO Last administered on 01/20/19 20:50; Admin Dose 20 GM; Start 01/19/19 at 21:00 Metoclopramide HCl (Reglan) 5 mg Q6 IV Last administered on 01/21/19 05:23; Admin Dose 5 MG; Start 01/19/19 at 20:00 Amiodarone HCl (Cordarone) 400 mg TID PO Last administered on 01/20/19 20:50; Admin Dose 400 MG; Start 01/20/19 at 21:00 Amiodarone HCl 900 mg/Dextrose 500 ml @ 0 mls/hr Q0M IV Last administered on 01/21/19at 02:54; Admin Dose 33.3 MLS/HR; Start 01/21/19 at 03:00 SULEIMAN BOYD NP Jan 21, 2019 08:36
--- NOTE | 2019-01-21 09:28 | CONS ---
Assessment/Plan Assessment/Plan Hospital Course (Demo Recall) ID NOTE CURRENT ABX: DAY #10 =>Vanco IV + MERREM + Cancidas #6 01/21/19 0440 01/21/19 0426 24H INTERVAL SUMMARY * Encephalopathic, orally intubated on the Vent -- off sedation 36H+, looks clean and comfortable * (+)Icteric * Indwelling's endotracheal tube, NG tube, right IJ triple-lumen catheter, left upper extremity AV fistula MICRO/OTHER * 01/12/19 BCx (-) * 01/15/19 BCx (-) * 01/15/19 Resp Cx (+) RESPIRATORY CULTURE Final Organism 1 YEAST,NOT JESÚS ALBICANS QUANTITY 1+ * 01/15/19 (-)MRSA nares * 01/18/19 Trach Aspirate Cx (+) RESPIRATORY CULTURE Preliminary Organism 1 NORMAL RESPIRATORY REBECCA QUANTITY SCANT GROWTH Organism 2 YEAST QUANTITY SCANT GROWTH IMAGING * 01/21/19 CXR: Satisfactory position of right central venous catheter, endotracheal tube, and nasogastric tube. Low lung volumes with layering left pleural effusion and bilateral left greater than right infiltrates * 01/17/19: CT abdomen pelvis without contrast revealed diffuse colitis. Cholelithiasis without evidence for cholecystitis. Nonspecific patchy bibasilar pulmonary consolidation. Please see full report in the chart PHYSICAL EXAMINATION: GENERAL: VSS, NAD, critically ill, sedated in ICU HEENT: AT, NC, (+)Icteric, (+)ETT & NGT secure NECK: Trach midline, neck supple moves side to side CHEST: Equal chest rise bilaterally without dyspnea on observation ABD: Soft, large EXTREMITIES: Warm, dry, trace edema SKIN: No rash, no diaphoresis ID ASSESSMENT 73 yo M admit with: 1. Severe sepsis with shock ?biliary 2. Acute hypoxemic respiratory failure/CHF exacerbation 3. Healthcare associated pneumonia possibly aspirated 4. Colitis 5. End-stage renal disease, hemodialysis dependent 6. Coronary artery disease w/ Hx of CABG 7. Hx of HTN 8. Hx of cardiac arrhythmia --> Amiodarone onboard = avoid QT prolonging meds 9. Diabetes 10. Transaminitis with elevated total bilirubin 11. Cholelithiasis, without evidence for cholecystitis. 12. Mild fat-containing bilateral inguinal hernias, without incarceration. 13. Subacute moderate compression deformity of T12 * Hx of fall 1.5 mos ago (-)MRSA Nares ABX ALLERGIES: KNDA INVASIVES: R-IJ TLC, ETT, NGT, LUEXT AVF CURRENT ABX: DAY #10 =>Vanco IV + MERREM + Cancidas ID RECOMMENDATIONS/PLAN: 1. Patient with acute colitis and negative pulmonary cx for bacteria -- would de-escalate ABX * Continue Cancidas for opportunistic yeast trach aspirate * Lets Merrem to Aminoglycoside + Flagyl = less likely to flare ABX associated colitis; however appears Flagyl was onboard and recently limited to 48H empiric coverage -- sent text message to clinical pharmacist regarding plan * Continue Vanco IV for now-> If he tolerates ABX change above will consider DC as (-)MRSA Consultation Date/Type/Reason Admit Date/Time January 13, 2019 at 00:07 Initial Consult Date 01/17/19 Date/Time of Note DATE: 01/21/19 TIME: 09:28 Exam/Review of Systems Exam Vitals Vital Signs Date Temp Pulse Resp B/P (MAP) Pulse Ox O2 O2 Flow FiO2 Time Delivery Rate 01/21/19 99.0 114 20 89/45 (60) 97 Mechanical 08:00 Ventilator 01/21/19 70 07:58 Intake and Output 01/20/19 01/20/19 01/21/19 1515:00 23:00 07:00 IntakeIntake Total 223.00 ml 510.125 ml 521.3 ml OutputOutput Total 0 ml 200 ml 1300 ml BalanceBalance 223.00 ml 310.125 ml -778.7 ml Results Result Diagram: 01/21/19 0440 01/21/19 0426 Results 24hrs Laboratory Tests Test 01/20/19 10:35 01/20/19 13:22 01/20/19 17:28 01/20/19 20:53 Bedside Glucose 126 131 135 127 Test 01/21/19 00:42 01/21/19 04:26 01/21/19 04:30 01/21/19 04:40 Bedside Glucose 113 147 Sodium Level 142 Potassium Level 4.1 Chloride Level 104 Carbon Dioxide 26 Level Anion Gap 12 Blood Urea 21 H Nitrogen Creatinine 2.88 H Est Glomerular Filtrat Rate mL/min Glucose Level 124 Calcium Level 8.8 Random Cortisol 16.5 White Blood Count 19.6 H Red Blood Count 2.68 L Hemoglobin 8.6 L Hematocrit 26.4 L Mean Corpuscular 98.5 Volume Mean Corpuscular 32.1 Hemoglobin Mean Corpuscular 32.6 Hemoglobin Concent Red Cell 17.2 H Distribution Width Platelet Count 83 L Mean Platelet 13.1 H Volume Immature 1.600 H Granulocytes % Neutrophils % 82.6 H Segmented 87 H Neutrophils % (Manual) Band Neutrophils % 1 (Manual) Lymphocytes % 8.0 L Lymphocytes % 6 L (Manual) Monocytes % 4.1 Monocytes % 4 (Manual) Eosinophils % 2.6 Eosinophils % 1 (Manual) Basophils % 1.1 Basophils % 1 (Manual) Nucleated Red 2 H Blood Cells % Immature 0.310 H Granulocytes # Neutrophils # 16.2 H Neutrophils # 17.1 H (Manual) Band Neutrophils # 0.1 Lymphocytes 1.1 (Manual) Lymphocytes # 1.6 Monocytes # 0.8 Monocytes # 0.7 (Manual) Eosinophils # 0.5 Basophils # 0.2 H Basophils # 0.1 H (Manual) Nucleated Red 0.1 H Blood Cells # Platelet Estimate DECREASED Polychromasia 1+ Poikilocytosis 1+ Anisocytosis 2+ Macrocytosis 2+ Test 01/21/19 04:47 01/21/19 05:02 01/21/19 07:00 Phosphorus Level 3.5 Magnesium Level 2.2 Random Vancomycin 12.7 Level Blood Gas Specimen Blood arterial Source Arterial Blood 01/21/2019 7:30:12 Date Drawn AM Arterial Blood pH 7.435 (Temp corrected) Arterial Blood 39.9 pCO2 (Temp correct) Arterial Blood pO2 80.9 (Temp corrected) Arterial Blood 26.2 H HCO3 Arterial Blood 1.9 Base Excess Arterial Blood 95.0 Oxygen Saturation Jaiden Test N/A Arterial Blood Gas Right Brachial Puncture Site Arterial 0.1 Blood Carboxyhemog lobin Arterial Blood 0.3 Methemoglobin Blood Gas A-a O2 375.3 H Differential Oxyhemoglobin 94.6 Percent Blood Gas 37.0 Temperature Blood Gas 20.0 Respiration Rate Blood Gas Actual 25 Respiration Rate Blood Gas Modality VENT - AC FiO2 70.0 Blood Gas Tidal 500.0 Volume Blood Gas Low PEEP 5.0 Setting Blood Gas Notified CW Whom Blood Gas Notified 01/21/2019 8:00:17 Time AM Medications Medication Current Medications Vancomycin HCl (Vanco Iv Per Pharmacy) VANCOMYCIN PER PHARMACY PER PROTOCOL XX ; Start 01/13/19 at 02:00 IV Flush (NS 3 ml) 3 ml PER PROTOCOL IV ; Start 01/13/19 at 02:00 Acetaminophen (Tylenol Tab) 650 mg Q6H PRN PO .PAIN 1-3 OR TEMP Last administered on 01/18/19 08:28; Admin Dose 650 MG; Start 01/13/19 at 02:00 Acetaminophen/ Hydrocodone Bitart ([place] (5/325)) 1 tab Q6H PRN PO .PAIN 4-[address] administered on 01/15/19 13:40; Admin Dose 1 TAB; Start 01/13/19 at 02:00 Docusate Sodium (Colace) 100 mg Q12H PRN PO .CONSTIPATION; Start 01/13/19 at 02:00 Bisacodyl (Dulcolax) 5 mg DAILY PRN PO .CONSTIPATION; Start 01/13/19 at 02:00 Heparin Sodium (Porcine) (Heparin (5000 Units/1ml)) 5,000 unit Q8 SC Last administered on 01/19/19 05:29; Admin Dose 5,000 UNIT; Start 01/13/19 at 06:00; Status Hold Atorvastatin Calcium (Lipitor) 40 mg DAILY@21 PO Last administered on 01/20/19 20:50; Admin Dose 40 MG; Start 01/13/19 at 21:00 Carvedilol (Coreg) 12.5 mg BID PO ; Start 01/13/19 at 09:00; Status Hold Ferrous Sulfate (Ferrous Sulfate (Ec)) 325 mg BID PO Last administered on 01/20/19 20:50; Admin Dose 325 MG; Start 01/13/19 at 09:00 Folic Acid (Folic Acid) 1 mg DAILY PO Last administered on 01/20/19 10:40; Admin Dose 1 MG; Start 01/13/19 at 09:00 Insulin Glargine (Lantus) 20 units QHS SC Last administered on 01/14/19 22:04; Admin Dose 20 UNITS; Start 01/13/19 at 21:00; Status Hold Aspirin (Aspirin) 81 mg DAILY PO Last administered on 01/20/19 10:39; Admin Dose 81 MG; Start 01/13/19 at 11:00 Miscellaneous Information 1 ea NOTE XX ; Start 01/13/19 at 15:30 Glucose (Glutose) 15 gm Q15M PRN PO DECREASED GLUCOSE; Start 01/13/19 at 15:30 Glucose (Glutose) 22.5 gm Q15M PRN PO DECREASED GLUCOSE; Start 01/13/19 at 15:30 Dextrose (D50w Syringe) 25 ml Q15M PRN IV DECREASED GLUCOSE; Start 01/13/19 at 15:30 Dextrose (D50w Syringe) 50 ml Q15M PRN IV DECREASED GLUCOSE; Start 01/13/19 at 15:30 Glucagon (Glucagen) 1 mg Q15M PRN IM DECREASED GLUCOSE; Start 01/13/19 at 15:30 Glucose (Glutose) 15 gm Q15M PRN BUCCAL DECREASED GLUCOSE; Start 01/13/19 at 15:30 Epoetin Cam-epbx (Retacrit (Esrd)) 4,000 unit TuThSa@1700 SC Last administered on 01/19/19 18:05; Admin Dose 4,000 UNIT; Start 01/14/19 at 17:00 Levalbuterol (Xopenex Neb) 1.25 mg Q4H RESP THERAPY PRN HHN dyspnea; Start 01/14/19 at 19:00 Fentanyl 100 ml @ 5 mls/hr TITRATE IV Last administered on 01/18/19at 21:11; Admin Dose 5 MLS/HR; Start 01/15/19 at 17:30 Meropenem/Sodium Chloride 50 ml @ 100 mls/hr Q12H IVPB Last administered on 01/21/19 05:24; Admin Dose 100 MLS/HR; Start 01/15/19 at 17:30 Norepinephrine 250 ml @ 1.875 mls/ hr TITRATE IV Last administered on 01/21/19at 02:48; Admin Dose 37.5 MLS/HR; Start 01/15/19 at 17:30 Insulin Aspart (Novolog Insulin Pen) NOVOLOG *MILD* ALGORITHM Q4 SC Last administered on 01/21/19 04:37; Admin Dose 1 UNIT; Start 01/15/19 at 17:55 Ipratropium [place] (Atrovent Hfa) 4 puff Q6H RESP THERAPY INH Last administered on 01/21/19 08:29; Admin Dose 4 PUFF; Start 01/15/19 at 20:00 Albuterol (Ventolin Hfa) 4 puff Q6H RESP THERAPY INH Last administered on 01/21/19 08:29; Admin Dose 4 PUFF; Start 01/15/19 at 20:00 Famotidine (Pepcid Iv) 20 mg Q24H IV Last administered on 01/21/19 05:23; Admin Dose 20 MG; Start 01/16/19 at 06:00 Propofol 100 ml @ 2.46 mls/hr Q12H IV Last administered on 01/18/19 00:27; Admin Dose 9.84 MLS/HR; Start 01/15/19 at 23:00 Vasopressin 60 unit/Dextrose 60 ml @ 1.2 mls/hr Q12H IV Last administered on 01/18/19 05:05; Admin Dose 2.4 MLS/HR; Start 01/16/19 at 02:30 Phenylephrine HCl 250 ml @ 75 mls/hr TITRATE IV ; Start 01/16/19 at 10:30 Caspofungin 35 mg/ Sodium Chloride 250 ml @ 250 mls/hr Q24H IVPB Last administered on 01/20/19 17:19; Admin Dose 250 MLS/HR; Start 01/17/19 at 15:00 Docusate Sodium (Colace Liquid Cup) 100 mg BID NGT Last administered on 01/20/19 20:50; Admin Dose 100 MG; Start 01/17/19 at 21:00 Collagenase (Santyl) 1 applic BID TOP Last administered on 01/20/19 20:52; Admin Dose 1 APPLIC; Start 01/17/19 at 21:00 Dexmedetomidine HCl 200 mcg/ Sodium Chloride 50 ml @ 4.1 mls/hr TITRATE IV Last administered on 01/19/19 06:46; Admin Dose 4.1 MLS/HR; Start 01/18/19 at 08:00 Albumin Human 100 ml @ 100 mls/hr DURING DIALYSIS PRN IV BLOOD PRESSURE SUPPORT Last administered on 01/20/19 23:33; Admin Dose 100 MLS/HR; Start 01/18/19 at 11:30 Lactulose (Enulose) 20 gm BID PO Last administered on 01/20/19 20:50; Admin Dose 20 GM; Start 01/19/19 at 21:00 Metoclopramide HCl (Reglan) 5 mg Q6 IV Last administered on 01/21/19 05:23; Admin Dose 5 MG; Start 01/19/19 at 20:00 Amiodarone HCl (Cordarone) 400 mg TID PO Last administered on 01/20/19at 20:50; Admin Dose 400 MG; Start 01/20/19 at 21:00 Amiodarone HCl 900 mg/Dextrose 500 ml @ 0 mls/hr Q0M IV Last administered on 01/21/19at 02:54; Admin Dose 33.3 MLS/HR; Start 01/21/19 at 03:00 Heparin Sodium (Porcine) (Heparin (5000 Units/1ml)) 5,000 unit BID SC ; Start 01/21/19 at 09:00 JO ANN LOPEZ NP Jan 21, 2019 09:28
[2019-01-21] MEDS: DOCUSATE SODIUM 10 MG/ML (10ML CUP) NGT SCH ×2 (09:53→20:26)
[2019-01-21] MEDS: ASPIRIN 81 MG TAB PO SCH (09:54)
[2019-01-21] MEDS: AMIODARONE 200 MG TAB PO SCH ×2 (09:54→13:52)
[2019-01-21] MEDS: BALSAM PERU/CASTOR OIL 60 GM TUBE TOP SCH ×2 (09:54→20:26)
[2019-01-21] MEDS: COLLAGENASE 5 GM (UD JAR) TOP SCH ×2 (09:54→20:25)
[2019-01-21] MEDS: FERROUS SULFATE (EC) 325 MG TAB PO SCH ×2 (09:54→20:25)
[2019-01-21] MEDS: FOLIC ACID 1 MG TAB PO SCH (09:54)
[2019-01-21] MEDS: LACTULOSE 30ML CUP PO SCH ×2 (09:55→20:25)
[2019-01-21] MEDS: HEPARIN 5,000 UNIT/1 ML VIAL SC SCH (09:57)
--- NOTE | 2019-01-21 09:59 | CONS ---
Assessment/Plan Assessment/Plan Assessment/Plan (Daily) Sepsis syndrome secondary to healthcare acquired pneumonia End stage renal disease on hemodialysis Non-ST myocardial infarction type II Respiratory failure intubated Coronary heart disease status post coronary artery bypass graft Type II diabetes Hypertension Shock I will be away for the next three days will contact primary care physician and assist in any other way I can in making recommendations. I appreciate the early palliative care referral. Consultation Date/Type/Reason Admit Date/Time January 13, 2019 at 00:07 Date/Time of Note DATE: 01/21/19 TIME: 09:57 Hx of Present Illness History and physical for visit January 20, 2019 Patient is in the intensive care unit is a non-historian is septic intubated on pressers. And was admitted to [facility] on January 13, 2019 with sepsis syndrome healthcare acquired pneumonia, hypoxemia respiratory failure non-ST UT, history of coronary heart disease, history of end-stage renal disease on hemodialysis, history of hypertension, history of diabetes. I spoke with [facility] with family members are intimately involved with her father's care and insist on everything being done. Patient remains intubated once again still on pressers, continuing to receive hemodialysis multiple consultants including renal, pulmonary, cardiology, internal medicine. Patient's laboratory test remain worrisome white blood cell count of 19.6 platelet count of 33,000. Chest x-ray January 21, 2018 satisfactory positioning of catheters endotracheal tube energy to lung volumes with layering left pleural effusion and bilateral left greater than right infiltrates.. There are no family members at the bedside. Past Medical History Home Meds Reported Medications Cholecalciferol* (Vitamin D3*) 1,000 Unit Tablet, 1000 UNIT PO DAILY, TAB 01/13/19 Multivit/Ca Carb/B Cmplx/Fa* (Celine-Alex*) 1 Tab Tab, 1 TAB PO DAILY, TAB 01/13/19 Aspirin* (Aspirin* EC) 81 Mg Tablet.dr, 81 MG PO DAILY, TAB 01/13/19 Rosuvastatin Calcium (Rosuvastatin Calcium) 10 Mg Tablet, 10 MG PO QAM for 30 Days, #30 01/13/19 Hydralazine Hcl* (Apresoline*) 50 Mg Tab, 50 MG PO TID for 30 Days, #90 01/13/19 Zolpidem Tartrate* (Zolpidem Tartrate*) 10 Mg Tablet, 10 MG PO QHS for 30 Days, #30 01/13/19 Amiodarone Hcl* (Amiodarone Hcl*) 200 Mg Tablet, 200 MG PO QAM for 30 Days, #30 01/13/19 Ibuprofen* (Ibuprofen*) 800 Mg Tab, 1600 MG PO BID PRN for PAIN, TAB 01/01/17 Folic Acid* (Folic Acid*) 1 Mg Tablet, 1 MG PO DAILY, TAB 01/01/17 Medications Current Medications Vancomycin HCl (Vanco Iv Per Pharmacy) VANCOMYCIN PER PHARMACY PER PROTOCOL XX ; Start 01/13/19 at 02:00 IV Flush (NS 3 ml) 3 ml PER PROTOCOL IV ; Start 01/13/19 at 02:00 Acetaminophen (Tylenol Tab) 650 mg Q6H PRN PO .PAIN 1-3 OR TEMP Last administered on 01/18/19at 08:28; Admin Dose 650 MG; Start 01/13/19 at 02:00 Acetaminophen/ Hydrocodone Bitart ([place] (5/325)) 1 tab Q6H PRN PO .PAIN 4-6 Last administered on 01/15/19at 13:40; Admin Dose 1 TAB; Start 01/13/19 at 02:00 Docusate Sodium (Colace) 100 mg Q12H PRN PO .CONSTIPATION; Start 01/13/19 at 02:00 Bisacodyl (Dulcolax) 5 mg DAILY PRN PO .CONSTIPATION; Start 01/13/19 at 02:00 Heparin Sodium (Porcine) (Heparin (5000 Units/1ml)) 5,000 unit Q8 SC Last administered on 01/19/19at 05:29; Admin Dose 5,000 UNIT; Start 01/13/19 at 06:00; Status Hold Atorvastatin Calcium (Lipitor) 40 mg DAILY@21 PO Last administered on 01/20/19at 20:50; Admin Dose 40 MG; Start 01/13/19 at 21:00 Carvedilol (Coreg) 12.5 mg BID PO ; Start 01/13/19 at 09:00; Status Hold Ferrous Sulfate (Ferrous Sulfate (Ec)) 325 mg BID PO Last administered on 01/20at 20:50; Admin Dose 325 MG; Start 01/13/19 at 09:00 Folic Acid (Folic Acid) 1 mg DAILY PO Last administered on 01/20/19at 10:40; Admin Dose 1 MG; Start 01/13/19 at 09:00 Insulin Glargine (Lantus) 20 units QHS SC Last administered on 01/14/19at 22:04; Admin Dose 20 UNITS; Start 01/13/19 at 21:00; Status Hold Aspirin (Aspirin) 81 mg DAILY PO Last administered on 01/20/19at 10:39; Admin Dose 81 MG; Start 01/13/19 at 11:00 Miscellaneous Information 1 ea NOTE XX ; Start 01/13/19 at 15:30 Glucose (Glutose) 15 gm Q15M PRN PO DECREASED GLUCOSE; Start 01/13/19 at 15:30 Glucose (Glutose) 22.5 gm Q15M PRN PO DECREASED GLUCOSE; Start 01/13/19 at 15:30 Dextrose (D50w Syringe) 25 ml Q15M PRN IV DECREASED GLUCOSE; Start 01/13/19 at 15:30 Dextrose (D50w Syringe) 50 ml Q15M PRN IV DECREASED GLUCOSE; Start 01/13/19 at 15:30 Glucagon (Glucagen) 1 mg Q15M PRN IM DECREASED GLUCOSE; Start 01/13/19 at 15:30 Glucose (Glutose) 15 gm Q15M PRN BUCCAL DECREASED GLUCOSE; Start 01/13/19 at 15:30 Epoetin Cam-epbx (Retacrit (Esrd)) 4,000 unit TuThSa@1700 SC Last administered on 01/19/19at 18:05; Admin Dose 4,000 UNIT; Start 01/14/19 at 17:00 Levalbuterol (Xopenex Neb) 1.25 mg Q4H RESP THERAPY PRN HHN dyspnea; Start 01/14/19 at 19:00 Fentanyl 100 ml @ 5 mls/hr TITRATE IV Last administered on 01/18/19at 21:11; Admin Dose 5 MLS/HR; Start 01/15/19 at 17:30 Meropenem/Sodium Chloride 50 ml @ 100 mls/hr Q12H IVPB Last administered on 01/21/19at 05:24; Admin Dose 100 MLS/HR; Start 01/15/19 at 17:30 Norepinephrine 250 ml @ 1.875 mls/ hr TITRATE IV Last administered on 01/21/19at 02:48; Admin Dose 37.5 MLS/HR; Start 01/15/19 at 17:30 Insulin Aspart (Novolog Insulin Pen) NOVOLOG *MILD* ALGORITHM Q4 SC Last adm inistered on 01/21/19 04:37; Admin Dose 1 UNIT; Start 01/15/19 at 17:55 Ipratropium Gre[place] (Atrovent Hfa) 4 puff Q6H RESP THERAPY INH Last administered on 01/21/19 08:29; Admin Dose 4 PUFF; Start 01/15/19 at 20:00 Albuterol (Ventolin Hfa) 4 puff Q6H RESP THERAPY INH Last administered on 01/21/19 08:29; Admin Dose 4 PUFF; Start 01/15/19 at 20:00 Famotidine (Pepcid Iv) 20 mg Q24H IV Last administered on 01/21/19 05:23; Admin Dose 20 MG; Start 01/16/19 at 06:00 Propofol 100 ml @ 2.46 mls/hr Q12H IV Last administered on 01/18/19 00:27; Admin Dose 9.84 MLS/HR; Start 01/15/19 at 23:00 Vasopressin 60 unit/Dextrose 60 ml @ 1.2 mls/hr Q12H IV Last administered on 01/18/19 05:05; Admin Dose 2.4 MLS/HR; Start 01/16/19 at 02:30 Phenylephrine HCl 250 ml @ 75 mls/hr TITRATE IV ; Start 01/16/19 at 10:30 Caspofungin 35 mg/ Sodium Chloride 250 ml @ 250 mls/hr Q24H IVPB Last administered on 01/20/19 17:19; Admin Dose 250 MLS/HR; Start 01/17/19 at 15:00 Docusate Sodium (Colace Liquid Cup) 100 mg BID NGT Last administered on 01/20/19 20:50; Admin Dose 100 MG; Start 01/17/19 at 21:00 Collagenase (Santyl) 1 applic BID TOP Last administered on 01/20/19 20:52; Admin Dose 1 APPLIC; Start 01/17/19 at 21:00 Dexmedetomidine HCl 200 mcg/ Sodium Chloride 50 ml @ 4.1 mls/hr TITRATE IV Last administered on 01/19/19 06:46; Admin Dose 4.1 MLS/HR; Start 01/18/19 at 08:00 Albumin Human 100 ml @ 100 mls/hr DURING DIALYSIS PRN IV BLOOD PRESSURE SUPPORT Last administered on 01/20/19at 23:33; Admin Dose 100 MLS/HR; Start 01/18/19 at 11:30 Lactulose (Enulose) 20 gm BID PO Last administered on 01/20/19at 20:50; Admin Dose 20 GM; Start 01/19/19 at 21:00 Metoclopramide HCl (Reglan) 5 mg Q6 IV Last administered on 01/21/19at 05:23; Admin Dose 5 MG; Start 01/19/19 at 20:00 Amiodarone HCl (Cordarone) 400 mg TID PO Last administered on 01/20/19 20:50; Admin Dose 400 MG; Start 01/20/19 at 21:00 Amiodarone HCl 900 mg/Dextrose 500 ml @ 0 mls/hr Q0M IV Last administered on 01/21/19at 02:54; Admin Dose 33.3 MLS/HR; Start 01/21/19 at 03:00 Heparin Sodium (Porcine) (Heparin (5000 Units/1ml)) 5,000 unit BID SC ; Start 01/21/19 at 09:00 Allergies: Coded Allergies: No Known Allergy (Unverified , 01/13/19) Past Surgical History Past Surgical Hx: coronary bypass surgery, other (AV fistula) Social History Alcohol Use: none Smoking Status: Former smoker Drug Use: none Exam/Review of Systems Exam Vitals Vital Signs Date Temp Pulse Resp B/P (MAP) Pulse Ox O2 O2 Flow FiO2 Time Delivery Rate 01/21/19 99.0 114 20 89/45 (60) 97 Mechanical 08:00 Ventilator 01/21/19 70 07:58 Intake and Output 01/20/19 01/20/19 01/21/19 1515:00 23:00 07:00 IntakeIntake Total 223.00 ml 510.125 ml 521.3 ml OutputOutput Total 0 ml 200 ml 1300 ml BalanceBalance 223.00 ml 310.125 ml -778.7 ml Constitutional: distress, frail, other Head: normocephalic, atraumatic Eyes: nl conjunctiva, EOMI, nl lids, nl sclera, PERRL ENMT: nl external ears & nose, nl lips & teeth, nl nasal mucosa & septum Respiratory: congested cough, crackles/rales, diminished breath sounds Cardiovascular: nl pulses, irregular rhythm Gastrointestinal: soft, nl liver, spleen, non-tender Neurological: unresponsive, other (sedated) Results Result Diagram: 01/21/19 0440 01/21/19 0426 Results 24hrs Laboratory Tests Test 01/20/19 10:35 01/20/19 13:22 01/20/19 17:28 01/20/19 20:53 Bedside Glucose 126 131 135 127 Test 01/21/19 00:42 01/21/19 04:26 01/21/19 04:30 01/21/19 04:40 Bedside Glucose 113 147 Sodium Level 142 Potassium Level 4.1 Chloride Level 104 Carbon Dioxide 26 Level Anion Gap 12 Blood Urea 21 H Nitrogen Creatinine 2.88 H Est Glomerular Filtrat Rate mL/min Glucose Level 124 Calcium Level 8.8 Random Cortisol 16.5 White Blood Count 19.6 H Red Blood Count 2.68 L Hemoglobin 8.6 L Hematocrit 26.4 L Mean Corpuscular 98.5 Volume Mean Corpuscular 32.1 Hemoglobin Mean Corpuscular 32.6 Hemoglobin Concent Red Cell 17.2 H Distribution Width Platelet Count 83 L Mean Platelet 13.1 H Volume Immature 1.600 H Granulocytes % Neutrophils % 82.6 H Segmented 87 H Neutrophils % (Manual) Band Neutrophils % 1 (Manual) Lymphocytes % 8.0 L Lymphocytes % 6 L (Manual) Monocytes % 4.1 Monocytes % 4 (Manual) Eosinophils % 2.6 Eosinophils % 1 (Manual) Basophils % 1.1 Basophils % 1 (Manual) Nucleated Red 2 H Blood Cells % Immature 0.310 H Granulocytes # Neutrophils # 16.2 H Neutrophils # 17.1 H (Manual) Band Neutrophils # 0.1 Lymphocytes 1.1 (Manual) Lymphocytes # 1.6 Monocytes # 0.8 Monocytes # 0.7 (Manual) Eosinophils # 0.5 Basophils # 0.2 H Basophils # 0.1 H (Manual) Nucleated Red 0.1 H Blood Cells # Platelet Estimate DECREASED Polychromasia 1+ Poikilocytosis 1+ Anisocytosis 2+ Macrocytosis 2+ Test 01/21/19 04:47 01/21/19 05:02 01/21/19 07:00 01/21/19 09:09 Phosphorus Level 3.5 Magnesium Level 2.2 Random Vancomycin 12.7 Level Blood Gas Specimen Blood arterial Source Arterial Blood 01/21/2019 7:30:12 Date Drawn AM Arterial Blood pH 7.435 (Temp corrected) Arterial Blood 39.9 pCO2 (Temp correct) Arterial Blood pO2 80.9 (Temp corrected) Arterial Blood 26.2 H HCO3 Arterial Blood 1.9 Base Excess Arterial Blood 95.0 Oxygen Saturation Jaiden Test N/A Arterial Blood Gas Right Brachial Puncture Site Arterial 0.1 Blood Carboxyhemog lobin Arterial Blood 0.3 Methemoglobin Blood Gas A-a O2 375.3 H Differential Oxyhemoglobin 94.6 Percent Blood Gas 37.0 Temperature Blood Gas 20.0 Respiration Rate Blood Gas Actual 25 Respiration Rate Blood Gas Modality VENT - AC FiO2 70.0 Blood Gas Tidal 500.0 Volume Blood Gas Low PEEP 5.0 Setting Blood Gas Notified CW Whom Blood Gas Notified 01/21/2019 8:00:17 Time AM Bedside Glucose 149 Medications Medication Current Medications Vancomycin HCl (Vanco Iv Per Pharmacy) VANCOMYCIN PER PHARMACY PER PROTOCOL XX ; Start 01/13/19 at 02:00 IV Flush (NS 3 ml) 3 ml PER PROTOCOL IV ; Start 01/13/19 at 02:00 Acetaminophen (Tylenol Tab) 650 mg Q6H PRN PO .PAIN 1-3 OR TEMP Last administered on 01/18/19at 08:28; Admin Dose 650 MG; Start 01/13/19 at 02:00 Acetaminophen/ Hydrocodone Bitart ([place] (5/325)) 1 tab Q6H PRN PO .PAIN 4-6 Last administered on 01/15/19 13:40; Admin Dose 1 TAB; Start 01/13/19 at 02:00 Docusate Sodium (Colace) 100 mg Q12H PRN PO .CONSTIPATION; Start 01/13/19 at 02:00 Bisacodyl (Dulcolax) 5 mg DAILY PRN PO .CONSTIPATION; Start 01/13/19 at 02:00 Heparin Sodium (Porcine) (Heparin (5000 Units/1ml)) 5,000 unit Q8 SC Last administered on 01/19/19 05:29; Admin Dose 5,000 UNIT; Start 01/13/19 at 06:00; Status Hold Atorvastatin Calcium (Lipitor) 40 mg DAILY@21 PO Last administered on 01/20/19 20:50; Admin Dose 40 MG; Start 01/13/19 at 21:00 Carvedilol (Coreg) 12.5 mg BID PO ; Start 01/13/19 at 09:00; Status Hold Ferrous Sulfate (Ferrous Sulfate (Ec)) 325 mg BID PO Last administered on 01/20/19 20:50; Admin Dose 325 MG; Start 01/13/19 at 09:00 Folic Acid (Folic Acid) 1 mg DAILY PO Last administered on 01/20/19at 10:40; Admin Dose 1 MG; Start 01/13/19 at 09:00 Insulin Glargine (Lantus) 20 units QHS SC Last administered on 01/14/19at 22:04; Admin Dose 20 UNITS; Start 01/13/19 at 21:00; Status Hold Aspirin (Aspirin) 81 mg DAILY PO Last administered on 01/20/19at 10:39; Admin Dose 81 MG; Start 01/13/19 at 11:00 Miscellaneous Information 1 ea NOTE XX ; Start 01/13/19 at 15:30 Glucose (Glutose) 15 gm Q15M PRN PO DECREASED GLUCOSE; Start 01/13/19 at 15:30 Glucose (Glutose) 22.5 gm Q15M PRN PO DECREASED GLUCOSE; Start 01/13/19 at 15:30 Dextrose (D50w Syringe) 25 ml Q15M PRN IV DECREASED GLUCOSE; Start 01/13/19 at 15:30 Dextrose (D50w Syringe) 50 ml Q15M PRN IV DECREASED GLUCOSE; Start 01/13/19 at 15:30 Glucagon (Glucagen) 1 mg Q15M PRN IM DECREASED GLUCOSE; Start 01/13/19 at 15:30 Glucose (Glutose) 15 gm Q15M PRN BUCCAL DECREASED GLUCOSE; Start 01/13/19 at 15:30 Epoetin Cam-epbx (Retacrit (Esrd)) 4,000 unit TuThSa@1700 SC Last administered on 01/19/19at 18:05; Admin Dose 4,000 UNIT; Start 01/14/19 at 17:00 Levalbuterol (Xopenex Neb) 1.25 mg Q4H RESP THERAPY PRN HHN dyspnea; Start 01/14/19 at 19:00 Fentanyl 100 ml @ 5 mls/hr TITRATE IV Last administered on 01/18/19 21:11; Admin Dose 5 MLS/HR; Start 01/15/19 at 17:30 Meropenem/Sodium Chloride 50 ml @ 100 mls/hr Q12H IVPB Last administered on 01/21/19 05:24; Admin Dose 100 MLS/HR; Start 01/15/19 at 17:30 Norepinephrine 250 ml @ 1.875 mls/ hr TITRATE IV Last administered on 01/21/19 02:48; Admin Dose 37.5 MLS/HR; Start 01/15/19 at 17:30 Insulin Aspart (Novolog Insulin Pen) NOVOLOG *MILD* ALGORITHM Q4 SC Last administered on 01/21/19 04:37; Admin Dose 1 UNIT; Start 01/15/19 at 17:55 Ipratropium [place] (Atrovent Hfa) 4 puff Q6H RESP THERAPY INH Last administered on 01/21/19 08:29; Admin Dose 4 PUFF; Start 01/15/19 at 20:00 Albuterol (Ventolin Hfa) 4 puff Q6H RESP THERAPY INH Last administered on 01/21/19 08:29; Admin Dose 4 PUFF; Start 01/15/19 at 20:00 Famotidine (Pepcid Iv) 20 mg Q24H IV Last administered on 01/21/19 05:23; Admin Dose 20 MG; Start 01/16/19 at 06:00 Propofol 100 ml @ 2.46 mls/hr Q12H IV Last administered on 01/18/19 00:27; Admin Dose 9.84 MLS/HR; Start 01/15/19 at 23:00 Vasopressin 60 unit/Dextrose 60 ml @ 1.2 mls/hr Q12H IV Last administered on 01/18/19 05:05; Admin Dose 2.4 MLS/HR; Start 01/16/19 at 02:30 Phenylephrine HCl 250 ml @ 75 mls/hr TITRATE IV ; Start 01/16/19 at 10:30 Caspofungin 35 mg/ Sodium Chloride 250 ml @ 250 mls/hr Q24H IVPB Last administered on 01/20/19 17:19; Admin Dose 250 MLS/HR; Start 01/17/19 at 15:00 Docusate Sodium (Colace Liquid Cup) 100 mg BID NGT Last administered on 01/20/19 20:50; Admin Dose 100 MG; Start 01/17/19 at 21:00 Collagenase (Santyl) 1 applic BID TOP Last administered on 01/20/19 20:52; Admin Dose 1 APPLIC; Start 01/17/19 at 21:00 Dexmedetomidine HCl 200 mcg/ Sodium Chloride 50 ml @ 4.1 mls/hr TITRATE IV Last administered on 01/19/19 06:46; Admin Dose 4.1 MLS/HR; Start 01/18/19 at 08:00 Albumin Human 100 ml @ 100 mls/hr DURING DIALYSIS PRN IV BLOOD PRESSURE SUPPORT Last administered on 01/20/19 23:33; Admin Dose 100 MLS/HR; Start 01/18/19 at 11:30 Lactulose (Enulose) 20 gm BID PO Last administered on 01/20/19 20:50; Admin Dose 20 GM; Start 01/19/19 at 21:00 Metoclopramide HCl (Reglan) 5 mg Q6 IV Last administered on 01/21/19 05:23; Admin Dose 5 MG; Start 01/19/19 at 20:00 Amiodarone HCl (Cordarone) 400 mg TID PO Last administered on 01/20/19 20:50; Admin Dose 400 MG; Start 01/20/19 at 21:00 Amiodarone HCl 900 mg/Dextrose 500 ml @ 0 mls/hr Q0M IV Last administered on 01/21/19 02:54; Admin Dose 33.3 MLS/HR; Start 01/21/19 at 03:00 Heparin Sodium (Porcine) (Heparin (5000 Units/1ml)) 5,000 unit BID SC ; Start 01/21/19 at 09:00 HO FARLEY Jan 21, 2019 09:59
[2019-01-21] MEDS: PROPOFOL 100 ML IV SCH ×2 (10:07→22:07)
[2019-01-21] MEDS ORDERED: AMIKACIN IV PER PHARMACY XX SCH (11:30)
[2019-01-21] MEDS ORDERED: AMIKACIN IVPB SCH (13:00)
[2019-01-21] MEDS ORDERED: SOD CHLORIDE 0.9% IVPB SCH (13:00)
[2019-01-21] MEDS: metroNIDAZOLE 500 MG/NS (PMX) 100 ML IVPB SCH ×2 (13:51→21:59)
--- NOTE | 2019-01-21 14:25 | CONS ---
Assessment/Plan Assessment/Plan Hospital Course (Demo Recall) 1. End-stage renal disease on hemodialysis. hemodialysis Wednesday, and Wednesday via left arm AV fistula 2. Septic shock , likely secondary to pneumonia/ cholecystitis. with elevated bilirubin , cx positive for yeast 3. Elevated trop 4. Hypokalemia, resolved. 5. Leukocytosis. 6. Shortness of breath, cough, weakness, leukocytosis of 26.8, likely secondary to pneumonia. with hypoxic and hypercapnic resp failure 7. Hyperbilirubinemia, abnormal liver function tests. 8. respiratory failure, likely secondary to pneumonia. 9. Hypertension, currently hypotensive 10. Dyslipidemia. 11. Diabetes. 12. Anemia chronic disease 13. encephalopathy, ALOC 14 Respiratory failure s/p intubation 15 New onset AFIB 16 Abnormal LFT with elevated Bili/direct/alk phos and elevation of transaminases ? r/o obstruction Assessment/Plan (Daily) -on vent 50 % - off sedation -had Hd yesterday - albumin PRN for HD t -avoid nephrotoxic drugs -c/w Epogen with eachHD -restraints -need GI consult Consultation Date/Type/Reason Admit Date/Time January 13, 2019 at 00:07 Initial Consult Date 01/13/2019 Type of Consult nephrology Date/Time of Note DATE: 01/21/19 TIME: 14:14 24 HR Interval Summary Free Text/Dictation orally intubated Subjective hx not possible: pt non-verbal, pt critical status Exam/Review of Systems Exam Vitals Vital Signs Date Temp Pulse Resp B/P (MAP) Pulse Ox O2 O2 Flow FiO2 Time Delivery Rate 01/21/19 114 20 96 50 13:34 01/21/19 101/45 12:15 (63) 01/21/19 99.4 Mechanical 12:00 Ventilator Intake and Output 01/20/19 01/20/19 01/21/19 1515:00 23:00 07:00 IntakeIntake Total 223.00 ml 510.125 ml 521.3 ml OutputOutput Total 0 ml 200 ml 1300 ml BalanceBalance 223.00 ml 310.125 ml -778.7 ml Exam left arm AV fistula Constitutional: non-verbal, obese ENMT: nl external ears & nose Neck: supple Cardiovascular: regular rate and rhythm Gastrointestinal: soft Skin: other (icteric) Results Result Diagram: 01/21/19 0440 01/21/19 0426 Results 24hrs Laboratory Tests Test 01/20/19 17:28 01/20/19 20:53 01/21/19 00:42 01/21/19 04:26 Bedside Glucose 135 127 113 Sodium Level 142 Potassium Level 4.1 Chloride Level 104 Carbon Dioxide 26 Level Anion Gap 12 Blood Urea 21 H Nitrogen Creatinine 2.88 H Est Glomerular Filtrat Rate mL/min Glucose Level 124 Calcium Level 8.8 Test 01/21/19 04:30 01/21/19 04:40 01/21/19 04:47 01/21/19 05:02 Bedside Glucose 147 Total Bilirubin 6.0 H Direct Bilirubin 5.00 H Indirect Bilirubin 1.0 Aspartate Amino 147 H Transf (AST/SGOT) Alanine 36 Aminotransferase ( ALT/SGPT) Alkaline 213 H Phosphatase Total Protein 5.7 L Albumin 2.7 L Random Cortisol 16.5 White Blood Count 19.6 H Red Blood Count 2.68 L Hemoglobin 8.6 L Hematocrit 26.4 L Mean Corpuscular 98.5 Volume Mean Corpuscular 32.1 Hemoglobin Mean Corpuscular 32.6 Hemoglobin Concent Red Cell 17.2 H Distribution Width Platelet Count 83 L Mean Platelet 13.1 H Volume Immature 1.600 H Granulocytes % Neutrophils % 82.6 H Segmented 87 H Neutrophils % (Manual) Band Neutrophils % 1 (Manual) Lymphocytes % 8.0 L Lymphocytes % 6 L (Manual) Monocytes % 4.1 Monocytes % 4 (Manual) Eosinophils % 2.6 Eosinophils % 1 (Manual) Basophils % 1.1 Basophils % 1 (Manual) Nucleated Red 2 H Blood Cells % Immature 0.310 H Granulocytes # Neutrophils # 16.2 H Neutrophils # 17.1 H (Manual) Band Neutrophils # 0.1 Lymphocytes 1.1 (Manual) Lymphocytes # 1.6 Monocytes # 0.8 Monocytes # 0.7 (Manual) Eosinophils # 0.5 Basophils # 0.2 H Basophils # 0.1 H (Manual) Nucleated Red 0.1 H Blood Cells # Platelet Estimate DECREASED Polychromasia 1+ Poikilocytosis 1+ Anisocytosis 2+ Macrocytosis 2+ Phosphorus Level 3.5 Magnesium Level 2.2 Random Vancomycin 12.7 Level Test 01/21/19 07:00 01/21/19 09:09 01/21/19 13:58 Blood Gas Specimen Blood arterial Source Arterial Blood 01/21/2019 7:30:12 Date Drawn AM Arterial Blood pH 7.435 (Temp corrected) Arterial Blood 39.9 pCO2 (Temp correct) Arterial Blood pO2 80.9 (Temp corrected) Arterial Blood 26.2 H HCO3 Arterial Blood 1.9 Base Excess Arterial Blood 95.0 Oxygen Saturation Jaiden Test N/A Arterial Blood Gas Right Brachial Puncture Site Arterial 0.1 Blood Carboxyhemog lobin Arterial Blood 0.3 Methemoglobin Blood Gas A-a O2 375.3 H Differential Oxyhemoglobin 94.6 Percent Blood Gas 37.0 Temperature Blood Gas 20.0 Respiration Rate Blood Gas Actual 25 Respiration Rate Blood Gas Modality VENT - AC FiO2 70.0 Blood Gas Tidal 500.0 Volume Blood Gas Low PEEP 5.0 Setting Blood Gas Notified CW Whom Blood Gas Notified 01/21/2019 8:00:17 Time AM Bedside Glucose 149 149 Medications Medication Current Medications Vancomycin HCl (Vanco Iv Per Pharmacy) VANCOMYCIN PER PHARMACY PER PROTOCOL XX ; Start 01/13/19 at 02:00 IV Flush (NS 3 ml) 3 ml PER PROTOCOL IV ; Start 01/13/19 at 02:00 Acetaminophen (Tylenol Tab) 650 mg Q6H PRN PO .PAIN 1-3 OR TEMP Last administered on 01/18/19 08:28; Admin Dose 650 MG; Start 01/13/19 at 02:00 Acetaminophen/ Hydrocodone Bitart ([place] (5/325)) 1 tab Q6H PRN PO .PAIN 4-6 Last administered on 01/15/19 13:40; Admin Dose 1 TAB; Start 01/13/19 at 02:00 Docusate Sodium (Colace) 100 mg Q12H PRN PO .CONSTIPATION Last administered on 01/21/19 13:52; Admin Dose 100 MG; Start 01/13/19 at 02:00 Bisacodyl (Dulcolax) 5 mg DAILY PRN PO .CONSTIPATION Last administered on 13:52; Admin Dose 5 MG; Start 01/13/19 at 02:00 Heparin Sodium (Porcine) (Heparin (5000 Units/1ml)) 5,000 unit Q8 SC Last administered on 01/19/19 05:29; Admin Dose 5,000 UNIT; Start 01/13/19 at 06:00; Status Hold Atorvastatin Calcium (Lipitor) 40 mg DAILY@21 PO Last administered on 01/20/19at 20:50; Admin Dose 40 MG; Start 01/13/19 at 21:00 Carvedilol (Coreg) 12.5 mg BID PO ; Start 01/13/19 at 09:00; Status Hold Ferrous Sulfate (Ferrous Sulfate (Ec)) 325 mg BID PO Last administered on 01/21/19at 09:54; Admin Dose 325 MG; Start 01/13/19 at 09:00 Folic Acid (Folic Acid) 1 mg DAILY PO Last administered on 01/21/19at 09:54; Admin Dose 1 MG; Start 01/13/19 at 09:00 Insulin Glargine (Lantus) 20 units QHS SC Last administered on 01/14/19at 22:04; Admin Dose 20 UNITS; Start 01/13/19 at 21:00; Status Hold Aspirin (Aspirin) 81 mg DAILY PO Last administered on 01/21/19at 09:54; Admin Dose 81 MG; Start 01/13/19 at 11:00 Miscellaneous Information 1 ea NOTE XX ; Start 01/13/19 at 15:30 Glucose (Glutose) 15 gm Q15M PRN PO DECREASED GLUCOSE; Start 01/13/19 at 15:30 Glucose (Glutose) 22.5 gm Q15M PRN PO DECREASED GLUCOSE; Start 01/13/19 at 15:30 Dextrose (D50w Syringe) 25 ml Q15M PRN IV DECREASED GLUCOSE; Start 01/13/19 at 15:30 Dextrose (D50w Syringe) 50 ml Q15M PRN IV DECREASED GLUCOSE; Start 01/13/19 at 15:30 Glucagon (Glucagen) 1 mg Q15M PRN IM DECREASED GLUCOSE; Start 01/13/19 at 15:30 Glucose (Glutose) 15 gm Q15M PRN BUCCAL DECREASED GLUCOSE; Start 01/13/19 at 15:30 Epoetin Cam-epbx (Retacrit (Esrd)) 4,000 unit TuThSa@1700 SC Last administered on 01/19/19at 18:05; Admin Dose 4,000 UNIT; Start 01/14/19 at 17:00 Levalbuterol (Xopenex Neb) 1.25 mg Q4H RESP THERAPY PRN HHN dyspnea; Start 01/14/19 at 19:00 Fentanyl 100 ml @ 5 mls/hr TITRATE IV Last administered on 01/18/19 21:11; Admin Dose 5 MLS/HR; Start 01/15/19 at 17:30 Norepinephrine 250 ml @ 1.875 mls/ hr TITRATE IV Last administered on 01/21/19 11:25; Admin Dose 15 MLS/HR; Start 01/15/19 at 17:30 Insulin Aspart (Novolog Insulin Pen) NOVOLOG *MILD* ALGORITHM Q4 SC Last administered on 01/21/19 09:53; Admin Dose 1 UNIT; Start 01/15/19 at 17:55 Ipratropium [place] (Atrovent Hfa) 4 puff Q6H RESP THERAPY INH Last administered on 01/21/19 13:36; Admin Dose 4 PUFF; Start 01/15/19 at 20:00 Albuterol (Ventolin Hfa) 4 puff Q6H RESP THERAPY INH Last administered on 01/21/19 13:36; Admin Dose 4 PUFF; Start 01/15/19 at 20:00 Famotidine (Pepcid Iv) 20 mg Q24H IV Last administered on 01/21/19 05:23; Admin Dose 20 MG; Start 01/16/19 at 06:00 Propofol 100 ml @ 2.46 mls/hr Q12H IV Last administered on 01/18/19 00:27; Admin Dose 9.84 MLS/HR; Start 01/15/19 at 23:00 Vasopressin 60 unit/Dextrose 60 ml @ 1.2 mls/hr Q12H IV Last administered on 01/18/19 05:05; Admin Dose 2.4 MLS/HR; Start 01/16/19 at 02:30 Phenylephrine HCl 250 ml @ 75 mls/hr TITRATE IV ; Start 01/16/19 at 10:30 Caspofungin 35 mg/ Sodium Chloride 250 ml @ 250 mls/hr Q24H IVPB Last administered on 01/20/19 17:19; Admin Dose 250 MLS/HR; Start 01/17/19 at 15:00 Docusate Sodium (Colace Liquid Cup) 100 mg BID NGT Last administered on 01/21/19 09:53; Admin Dose 100 MG; Start 01/17/19 at 21:00 Collagenase (Santyl) 1 applic BID TOP Last administered on 01/21/19 09:54; Admin Dose 1 APPLIC; Start 01/17/19 at 21:00 Dexmedetomidine HCl 200 mcg/ Sodium Chloride 50 ml @ 4.1 mls/hr TITRATE IV Last administered on 01/19/19 06:46; Admin Dose 4.1 MLS/HR; Start 01/18/19 at 08:00 Albumin Human 100 ml @ 100 mls/hr DURING DIALYSIS PRN IV BLOOD PRESSURE SUPPORT Last administered on 01/20/19 23:33; Admin Dose 100 MLS/HR; Start 01/18/19 at 11:30 Lactulose (Enulose) 20 gm BID PO Last administered on 01/21/19 09:55; Admin Dose 20 GM; Start 01/19/19 at 21:00 Metoclopramide HCl (Reglan) 5 mg Q6 IV Last administered on 01/21/19 11:24; Admin Dose 5 MG; Start 01/19/19 at 20:00 Amiodarone HCl (Cordarone) 400 mg TID PO Last administered on 01/21/19 13:52; Admin Dose 400 MG; Start 01/20/19 at 21:00 Amiodarone HCl 900 mg/Dextrose 500 ml @ 0 mls/hr Q0M IV Last administered on 01/21/19 02:54; Admin Dose 33.3 MLS/HR; Start 01/21/19 at 03:00 Heparin Sodium (Porcine) (Heparin (5000 Units/1ml)) 5,000 unit BID SC Last administered on 01/21/19 09:57; Admin Dose 5,000 UNIT; Start 01/21/19 at 09:00 Vancomycin HCl 1.25 gm/Sodium Chloride 250 ml @ 83.333 mls/ hr Q96H IVPB ; Start 01/21/19 at 18:00 Amikacin Sulfate (Amikacin Iv Per Pharmacy) AMIKACIN PER PHARMACY NOTE XX ; Start 01/21/19 at 11:30 Metronidazole 100 ml @ 100 mls/hr Q8 IVPB Last administered on 01/21/19 13:51; Admin Dose 100 MLS/HR; Start 01/21/19 at 14:00 Amikacin Sulfate 375 mg/Sodium Chloride 101.5 ml @ 101.5 mls/ hr AFTER DIALYSIS IVPB ; Start 01/22/19 at 09:00 IVONNE BHAT 8, 2019 14:25
[2019-01-21] MEDS: CASPOFUNGIN 35 MG in SOD CHLORIDE 0.9% 250 ML IVPB SCH (15:15)
--- NOTE | 2019-01-21 16:49 | CONS ---
Assessment/Plan Assessment/Plan Hospital Course (Demo Recall) Impression: Shock, likely secondary to sepsis Paroxysmal afib Vent dependent respiratory failure Sepsis secondary to pneumonia CAD with history of CABG End-stage renal disease on hemodialysis Diabetes Hypertension Dyslipidemia Recommendations: IV amiodarone bolus given again, and drip per protocol to adequate load him Titrate IV pressors to maintain SBP greater than 90 and/or map above 60. Will stop albuterol which will increase patient tachycardia Vent management as per pulmonary Continue to hold all patient's antihypertensives Fluid management via hemodialysis as per nephrology Antibiotics as per infectious disease Continue aspirin and statin therapy if no contraindication Consultation Date/Type/Reason Admit Date/Time January 13, 2019 at 00:07 Initial Consult Date 01/17/19 Type of Consult Cardiology Date/Time of Note DATE: 01/21/19 TIME: 16:46 24 HR Interval Summary Free Text/Dictation Remains intubated and cannot provide history. Overnight heart rate has become more rapid, patient is in afib, rate 110-120. Amiodarone gtt re-initiated. He is also off sedation for 36 hours and unresponsive, will be going for CT of head. Subjective hx not possible: pt non-verbal, pt critical status Exam/Review of Systems Vital Signs Vitals Vital Signs Date Temp Pulse Resp B/P (MAP) Pulse Ox O2 O2 Flow FiO2 Time Delivery Rate 01/21/19 50 16:00 01/21/19 100.0 116 21 107/45 98 [place] 16:00 (65) l Ventilato r Intake and Output 01/20/19 01/20/19 01/21/19 1515:00 23:00 07:00 IntakeIntake Total 223.00 ml 510.125 ml 521.3 ml OutputOutput Total 0 ml 200 ml 1300 ml BalanceBalance 223.00 ml 310.125 ml -778.7 ml Exam Constitutional: non-verbal Head: normocephalic Eyes: nl lids ENMT: nl external ears & nose, intubated Neck: No jvd, No bruits Respiratory: clear to auscultation Cardiovascular: irregular rhythm (rapid) Gastrointestinal: soft, non-tender Musculoskeletal: nl extremities to inspection Extremities: pitting pedal edema Neurological: unresponsive Skin: nl turgor Labs Result Diagram: 01/21/19 0440 01/21/19 0426 Results 24hrs Laboratory Tests Test 01/20/19 17:28 01/20/19 20:53 01/21/19 00:42 01/21/19 04:26 Bedside Glucose 135 127 113 Sodium Level 142 Potassium Level 4.1 Chloride Level 104 Carbon Dioxide 26 Level Anion Gap 12 Blood Urea 21 H Nitrogen Creatinine 2.88 H Est Glomerular Filtrat Rate mL/min Glucose Level 124 Calcium Level 8.8 Test 01/21/19 04:30 01/21/19 04:40 01/21/19 04:47 01/21/19 05:02 Bedside Glucose 147 Total Bilirubin 6.0 H Direct Bilirubin 5.00 H Indirect Bilirubin 1.0 Aspartate Amino 147 H Transf (AST/SGOT) Alanine 36 Aminotransferase ( ALT/SGPT) Alkaline 213 H Phosphatase Total Protein 5.7 L Albumin 2.7 L Random Cortisol 16.5 White Blood Count 19.6 H Red Blood Count 2.68 L Hemoglobin 8.6 L Hematocrit 26.4 L Mean Corpuscular 98.5 Volume Mean Corpuscular 32.1 Hemoglobin Mean Corpuscular 32.6 Hemoglobin Concent Red Cell 17.2 H Distribution Width Platelet Count 83 L Mean Platelet 13.1 H Volume Immature 1.600 H Granulocytes % Neutrophils % 82.6 H Segmented 87 H Neutrophils % (Manual) Band Neutrophils % 1 (Manual) Lymphocytes % 8.0 L Lymphocytes % 6 L (Manual) Monocytes % 4.1 Monocytes % 4 (Manual) Eosinophils % 2.6 Eosinophils % 1 (Manual) Basophils % 1.1 Basophils % 1 (Manual) Nucleated Red 2 H Blood Cells % Immature 0.310 H Granulocytes # Neutrophils # 16.2 H Neutrophils # 17.1 H (Manual) Band Neutrophils # 0.1 Lymphocytes 1.1 (Manual) Lymphocytes # 1.6 Monocytes # 0.8 Monocytes # 0.7 (Manual) Eosinophils # 0.5 Basophils # 0.2 H Basophils # 0.1 H (Manual) Nucleated Red 0.1 H Blood Cells # Platelet Estimate DECREASED Polychromasia 1+ Poikilocytosis 1+ Anisocytosis 2+ Macrocytosis 2+ Phosphorus Level 3.5 Magnesium Level 2.2 Random Vancomycin 12.7 Level Test 01/21/19 07:00 01/21/19 09:09 01/21/19 13:58 Blood Gas Specimen Blood arterial Source Arterial Blood 01/21/2019 7:30:12 Date Drawn AM Arterial Blood pH 7.435 (Temp corrected) Arterial Blood 39.9 pCO2 (Temp correct) Arterial Blood pO2 80.9 (Temp corrected) Arterial Blood 26.2 H HCO3 Arterial Blood 1.9 Base Excess Arterial Blood 95.0 Oxygen Saturation Jaiden Test N/A Arterial Blood Gas Right Brachial Puncture Site Arterial 0.1 Blood Carboxyhemog lobin Arterial Blood 0.3 Methemoglobin Blood Gas A-a O2 375.3 H Differential Oxyhemoglobin 94.6 Percent Blood Gas 37.0 Temperature Blood Gas 20.0 Respiration Rate Blood Gas Actual 25 Respiration Rate Blood Gas Modality VENT - AC FiO2 70.0 Blood Gas Tidal 500.0 Volume Blood Gas Low PEEP 5.0 Setting Blood Gas Notified CW Whom Blood Gas Notified 01/21/2019 8:00:17 Time AM Bedside Glucose 149 149 Medications Medications Current Medications Vancomycin HCl (Vanco Iv Per Pharmacy) VANCOMYCIN PER PHARMACY PER PROTOCOL XX ; Start 01/13/19 at 02:00 IV Flush (NS 3 ml) 3 ml PER PROTOCOL IV ; Start 01/13/19 at 02:00 Acetaminophen (Tylenol Tab) 650 mg Q6H PRN PO .PAIN 1-3 OR TEMP Last administered on 01/18/19 08:28; Admin Dose 650 MG; Start 01/13/19 at 02:00 Acetaminophen/ Hydrocodone Bitart ([place] (5/325)) 1 tab Q6H PRN PO .PAIN 4-6 Last administered on 01/15/19 13:40; Admin Dose 1 TAB; Start 01/13/19 at 02:00 Docusate Sodium (Colace) 100 mg Q12H PRN PO .CONSTIPATION Last administered on 01/21/19 13:52; Admin Dose 100 MG; Start 01/13/19 at 02:00 Bisacodyl (Dulcolax) 5 mg DAILY PRN PO .CONSTIPATION Last administered on 01/21/19 13:52; Admin Dose 5 MG; Start 01/13/19 at 02:00 Atorvastatin Calcium (Lipitor) 40 mg DAILY@21 PO Last administered on 01/20/19 20:50; Admin Dose 40 MG; Start 01/13/19 at 21:00 Carvedilol (Coreg) 12.5 mg BID PO ; Start 01/13/19 at 09:00; Status Hold Ferrous Sulfate (Ferrous Sulfate (Ec)) 325 mg BID PO Last administered on 01/21/19 09:54; Admin Dose 325 MG; Start 01/13/19 at 09:00 Folic Acid (Folic Acid) 1 mg DAILY PO Last administered on 01/21/19 09:54; Admin Dose 1 MG; Start 01/13/19 at 09:00 Insulin Glargine (Lantus) 20 units QHS SC Last administered on 01/14/19 22:04; Admin Dose 20 UNITS; Start 01/13/19 at 21:00; Status Hold Aspirin (Aspirin) 81 mg DAILY PO Last administered on 01/21/19 09:54; Admin Dos e 81 MG; Start 01/13/19 at 11:00 Miscellaneous Information 1 ea NOTE XX ; Start 01/13/19 at 15:30 Glucose (Glutose) 15 gm Q15M PRN PO DECREASED GLUCOSE; Start 01/13/19 at 15:30 Glucose (Glutose) 22.5 gm Q15M PRN PO DECREASED GLUCOSE; Start 01/13/19 at 15:30 Dextrose (D50w Syringe) 25 ml Q15M PRN IV DECREASED GLUCOSE; Start 01/13/19 at 15:30 Dextrose (D50w Syringe) 50 ml Q15M PRN IV DECREASED GLUCOSE; Start 01/13/19 at 15:30 Glucagon (Glucagen) 1 mg Q15M PRN IM DECREASED GLUCOSE; Start 01/13/19 at 15:30 Glucose (Glutose) 15 gm Q15M PRN BUCCAL DECREASED GLUCOSE; Start 01/13/19 at 15:30 Epoetin Cam-epbx (Retacrit (Esrd)) 4,000 unit TuThSa@1700 SC Last administered on 01/19/19at 18:05; Admin Dose 4,000 UNIT; Start 01/14/19 at 17:00 Levalbuterol (Xopenex Neb) 1.25 mg Q4H RESP THERAPY PRN HHN dyspnea; Start 01/14/19 at 19:00 Fentanyl 100 ml @ 5 mls/hr TITRATE IV Last administered on 01/18/19 21:11; Admin Dose 5 MLS/HR; Start 01/15/19 at 17:30 Norepinephrine 250 ml @ 1.875 mls/ hr TITRATE IV Last administered on 01/21/19 11:25; Admin Dose 15 MLS/HR; Start 01/15/19 at 17:30 Insulin Aspart (Novolog Insulin Pen) NOVOLOG *MILD* ALGORITHM Q4 SC Last administered on 01/21/19 14:08; Admin Dose 1 UNIT; Start 01/15/19 at 17:55 Ipratropium [place] (Atrovent Hfa) 4 puff Q6H RESP THERAPY INH Last administered on 01/21/19 13:36; Admin Dose 4 PUFF; Start 01/15/19 at 20:00 Albuterol (Ventolin Hfa) 4 puff Q6H RESP THERAPY INH Last administered on 01/21/19 13:36; Admin Dose 4 PUFF; Start 01/15/19 at 20:00 Famotidine (Pepcid Iv) 20 mg Q24H IV Last administered on 01/21/19 05:23; Admin Dose 20 MG; Start 01/16/19 at 06:00 Propofol 100 ml @ 2.46 mls/hr Q12H IV Last administered on 01/18/19 00:27; Admin Dose 9.84 MLS/HR; Start 01/15/19 at 23:00 Vasopressin 60 unit/Dextrose 60 ml @ 1.2 mls/hr Q12H IV Last administered on 01/18/19 05:05; Admin Dose 2.4 MLS/HR; Start 01/16/19 at 02:30 Phenylephrine HCl 250 ml @ 75 mls/hr TITRATE IV ; Start 01/16/19 at 10:30 Caspofungin 35 mg/ Sodium Chloride 250 ml @ 250 mls/hr Q24H IVPB Last administered on 01/21/19 15:15; Admin Dose 250 MLS/HR; Start 01/17/19 at 15:00 Docusate Sodium (Colace Liquid Cup) 100 mg BID NGT Last administered on 01/21/19 t 09:53; Admin Dose 100 MG; Start 01/17/19 at 21:00 Collagenase (Santyl) 1 applic BID TOP Last administered on 01/21/19 09:54; Admin Dose 1 APPLIC; Start 01/17/19 at 21:00 Dexmedetomidine HCl 200 mcg/ Sodium Chloride 50 ml @ 4.1 mls/hr TITRATE IV Last administered on 01/19/19 06:46; Admin Dose 4.1 MLS/HR; Start 01/18/19 at 08:00 Albumin Human 100 ml @ 100 mls/hr DURING DIALYSIS PRN IV BLOOD PRESSURE SUPPORT Last administered on 01/20/19 23:33; Admin Dose 100 MLS/HR; Start 01/18/19 at 11:30 Lactulose (Enulose) 20 gm BID PO Last administered on 01/21/19 09:55; Admin Dose 20 GM; Start 01/19/19 at 21:00 Metoclopramide HCl (Reglan) 5 mg Q6 IV Last administered on 01/21/19 11:24; Admin Dose 5 MG; Start 01/19/19 at 20:00 Amiodarone HCl (Cordarone) 400 mg TID PO Last administered on 01/21/19 13:52; Admin Dose 400 MG; Start 01/20/19 at 21:00 Amiodarone HCl 900 mg/Dextrose 500 ml @ 0 mls/hr Q0M IV Last administered on 01/21/19 02:54; Admin Dose 33.3 MLS/HR; Start 01/21/19 at 03:00 Heparin Sodium (Porcine) (Heparin (5000 Units/1ml)) 5,000 unit BID SC Last administered on 01/21/19 09:57; Admin Dose 5,000 UNIT; Start 01/21/19 at 09:00; Status Hold Vancomycin HCl 1.25 gm/Sodium Chloride 250 ml @ 83.333 mls/ hr Q96H IVPB ; Start 01/21/19 at 18:00 Amikacin Sulfate (Amikacin Iv Per Pharmacy) AMIKACIN PER PHARMACY NOTE XX ; Start 01/21/19 at 11:30 Metronidazole 100 ml @ 100 mls/hr Q8 IVPB Last administered on 01/21/19 13:51; Admin Dose 100 MLS/HR; Start 01/21/19 at 14:00 Amikacin Sulfate 375 mg/Sodium Chloride 101.5 ml @ 101.5 mls/ hr AFTER DIALYSIS IVPB ; Start 01/22/19 at 09:00 MICHAEL NIELSON Jan 21, 2019 16:49
[2019-01-21] MEDS: EPOETIN ALFA-EPBX (ESRD) 4,000 UNIT/ML VIAL SC SCH (17:34)
--- NOTE | 2019-01-21 17:47 | PN ---
Date/Time of Note Date/Time of Note DATE: 01/21/19 TIME: 17:43 Assessment/Plan VTE Prophylaxis Risk score (from Ns)>0 risk: 5 SCD applied (from Ns): Yes Pharmacological prophylaxis: NA/contraindicated Pharm contraindication: bleeding Lines/Catheters [facility]from [facility] Central Line Central line still needed: Yes Urinary Cath still in place: No Assessment/Plan Assessment/Plan Assessment: Elevated LFTs with direct hyperbilirubinemia -Hepatitis serologies negative -No biliary dilatation, on CT scan -ASMA/AMA- negative -SAÚL positive Imaging concerning for cirrhosis -Mild ascites -Thrombocytopenia -Coagulopathy Normocytic anemia Mild diffuse colitis on imaging - no diarrhea -KUB- no obstruction -CT- No bowel obstruction. Leukocytosis- trending down Healthcare associated pneumonia Hypoxic respiratory failure -intubated on MV NSTEMI, type II Coronary artery disease -History of CABG ESRD DM HTN Plan: Intubated in ICU KUB/CT with no evidence of obstruction will increase Reglan to 10 mg OTC Lactulose BID and mineral oil enema x1 MRCP when patient stable to rule out common bile duct obstruction versus hepatocellular disease Trend LFTs Supportive care Patient seen in collaboration with Dr. Resendez Subjective: Course reviewed with nursing staff Patient interviewed and examined All labs, imaging and other results reviewed Patient remains in the ICU, intubated, on pressors. White blood count is trending up. When stable will proceed with MRCP to rule out biliary obstruction. No sign ificant change in overall status PHYSICAL EXAMINATION: GENERAL: Intubated, sedation, on pressors, jaundice, OG in place. SKIN: No lesions, CHEST: Inspection within normal limits. CARDIOVASCULAR: Heart: Regular rate and rhythm RESPIRATORY: Lungs clear to auscultation and percussion, no wheezing, no rubs GASTROINTESTINAL AND LIVER: Abdomen: Soft, non tenderness, non-distended, no hernias, no masses, no organomegaly, no ascites, no guarding, no rebound tenderness, hypoactive bowel sounds. Rectal: Deferred. EXTREMITIES: No cyanosis, clubbing or edema. Result Diagram: 01/21/19 0440 01/21/19 0426 Results 24hrs Laboratory Tests Test 01/20/19 20:53 01/21/19 00:42 01/21/19 04:26 01/21/19 04:30 Bedside Glucose 127 113 147 Sodium Level 142 Potassium Level 4.1 Chloride Level 104 Carbon Dioxide 26 Level Anion Gap 12 Blood Urea 21 H Nitrogen Creatinine 2.88 H Est Glomerular Filtrat Rate mL/min Glucose Level 124 Calcium Level 8.8 Total Bilirubin 6.0 H Direct Bilirubin 5.00 H Indirect Bilirubin 1.0 Aspartate Amino 147 H Transf (AST/SGOT) Alanine 36 Aminotransferase ( ALT/SGPT) Alkaline 213 H Phosphatase Total Protein 5.7 L Albumin 2.7 L Random Cortisol 16.5 Test 01/21/19 04:40 01/21/19 04:47 01/21/19 05:02 01/21/19 07:00 White Blood Count 19.6 H Red Blood Count 2.68 L Hemoglobin 8.6 L Hematocrit 26.4 L Mean Corpuscular 98.5 Volume Mean Corpuscular 32.1 Hemoglobin Mean Corpuscular 32.6 Hemoglobin Concent Red Cell 17.2 H Distribution Width Platelet Count 83 L Mean Platelet 13.1 H Volume Immature 1.600 H Granulocytes % Neutrophils % 82.6 H Segmented 87 H Neutrophils % (Manual) Band Neutrophils % 1 (Manual) Lymphocytes % 8.0 L Lymphocytes % 6 L (Manual) Monocytes % 4.1 Monocytes % 4 (Manual) Eosinophils % 2.6 Eosinophils % 1 (Manual) Basophils % 1.1 Basophils % 1 (Manual) Nucleated Red 2 H Blood Cells % Immature 0.310 H Granulocytes # Neutrophils # 16.2 H Neutrophils # 17.1 H (Manual) Band Neutrophils # 0.1 Lymphocytes 1.1 (Manual) Lymphocytes # 1.6 Monocytes # 0.8 Monocytes # 0.7 (Manual) Eosinophils # 0.5 Basophils # 0.2 H Basophils # 0.1 H (Manual) Nucleated Red 0.1 H Blood Cells # Platelet Estimate DECREASED Polychromasia 1+ Poikilocytosis 1+ Anisocytosis 2+ Macrocytosis 2+ Phosphorus Level 3.5 Magnesium Level 2.2 Random Vancomycin 12.7 Level Blood Gas Specimen Blood arterial Source Arterial Blood 01/21/2019 7:30:12 Date Drawn AM Arterial Blood pH 7.435 (Temp corrected) Arterial Blood 39.9 pCO2 (Temp correct) Arterial Blood pO2 80.9 (Temp corrected) Arterial Blood 26.2 H HCO3 Arterial Blood 1.9 Base Excess Arterial Blood 95.0 Oxygen Saturation Jaiden Test N/A Arterial Blood Gas Right Brachial Puncture Site Arterial 0.1 Blood Carboxyhemog lobin Arterial Blood 0.3 Methemoglobin Blood Gas A-a O2 375.3 H Differential Oxyhemoglobin 94.6 Percent Blood Gas 37.0 Temperature Blood Gas 20.0 Respiration Rate Blood Gas Actual 25 Respiration Rate Blood Gas Modality VENT - AC FiO2 70.0 Blood Gas Tidal 500.0 Volume Blood Gas Low PEEP 5.0 Setting Blood Gas Notified CW Whom Blood Gas Notified 01/21/2019 8:00:17 Time AM Test 01/21/19 09:09 01/21/19 13:58 01/21/19 17:29 Bedside Glucose 149 149 130 CC: SEBASTIÁN RESENDEZ MD ; Exam/Review of Systems Exam Vitals Vital Signs Date Temp Pulse Resp B/P (MAP) Pulse Ox O2 O2 Flow FiO2 Time Delivery Rate 01/21/19 112 20 99 50 17:20 01/21/19 100.0 107/45 [place]ica 16:00 (65) l Ventilato r Intake and Output 01/20/19 01/20/19 01/21/19 1515:00 23:00 07:00 IntakeIntake Total 223.00 ml 510.125 ml 521.3 ml OutputOutput Total 0 ml 200 ml 1300 ml BalanceBalance 223.00 ml 310.125 ml -778.7 ml Results Results 24hrs Laboratory Tests Test 01/20/19 20:53 01/21/19 00:42 01/21/19 04:26 01/21/19 04:30 Bedside Glucose 127 113 147 Sodium Level 142 Potassium Level 4.1 Chloride Level 104 Carbon Dioxide 26 Level Anion Gap 12 Blood Urea 21 H Nitrogen Creatinine 2.88 H Est Glomerular Filtrat Rate mL/min Glucose Level 124 Calcium Level 8.8 Total Bilirubin 6.0 H Direct Bilirubin 5.00 H Indirect Bilirubin 1.0 Aspartate Amino 147 H Transf (AST/SGOT) Alanine 36 Aminotransferase ( ALT/SGPT) Alkaline 213 H Phosphatase Total Protein 5.7 L Albumin 2.7 L Random Cortisol 16.5 Test 01/21/19 04:40 01/21/19 04:47 01/21/19 05:02 01/21/19 07:00 White Blood Count 19.6 H Red Blood Count 2.68 L Hemoglobin 8.6 L Hematocrit 26.4 L Mean Corpuscular 98.5 Volume Mean Corpuscular 32.1 Hemoglobin Mean Corpuscular 32.6 Hemoglobin Concent Red Cell 17.2 H Distribution Width Platelet Count 83 L Mean Platelet 13.1 H Volume Immature 1.600 H Granulocytes % Neutrophils % 82.6 H Segmented 87 H Neutrophils % (Manual) Band Neutrophils % 1 (Manual) Lymphocytes % 8.0 L Lymphocytes % 6 L (Manual) Monocytes % 4.1 Monocytes % 4 (Manual) Eosinophils % 2.6 Eosinophils % 1 (Manual) Basophils % 1.1 Basophils % 1 (Manual) Nucleated Red 2 H Blood Cells % Immature 0.310 H Granulocytes # Neutrophils # 16.2 H Neutrophils # 17.1 H (Manual) Band Neutrophils # 0.1 Lymphocytes 1.1 (Manual) Lymphocytes # 1.6 Monocytes # 0.8 Monocytes # 0.7 (Manual) Eosinophils # 0.5 Basophils # 0.2 H Basophils # 0.1 H (Manual) Nucleated Red 0.1 H Blood Cells # Platelet Estimate DECREASED Polychromasia 1+ Poikilocytosis 1+ Anisocytosis 2+ Macrocytosis 2+ Phosphorus Level 3.5 Magnesium Level 2.2 Random Vancomycin 12.7 Level Blood Gas Specimen Blood arterial Source Arterial Blood 01/21/2019 7:30:12 Date Drawn AM Arterial Blood pH 7.435 (Temp corrected) Arterial Blood 39.9 pCO2 (Temp correct) Arterial Blood pO2 80.9 (Temp corrected) Arterial Blood 26.2 H HCO3 Arterial Blood 1.9 Base Excess Arterial Blood 95.0 Oxygen Saturation Jaiden Test N/A Arterial Blood Gas Right Brachial Puncture Site Arterial 0.1 Blood Carboxyhemog lobin Arterial Blood 0.3 Methemoglobin Blood Gas A-a O2 375.3 H Differential Oxyhemoglobin 94.6 Percent Blood Gas 37.0 Temperature Blood Gas 20.0 Respiration Rate Blood Gas Actual 25 Respiration Rate Blood Gas Modality VENT - AC FiO2 70.0 Blood Gas Tidal 500.0 Volume Blood Gas Low PEEP 5.0 Setting Blood Gas Notified CW Whom Blood Gas Notified 01/21/2019 8:00:17 Time AM Test 01/21/19 09:09 01/21/19 13:58 01/21/19 17:29 Bedside Glucose 149 149 130 Medications Medication Current Medications Vancomycin HCl (Vanco Iv Per Pharmacy) VANCOMYCIN PER PHARMACY PER PROTOCOL XX ; Start 01/13/19 at 02:00 IV Flush (NS 3 ml) 3 ml PER PROTOCOL IV ; Start 01/13/19 at 02:00 Acetaminophen (Tylenol Tab) 650 mg Q6H PRN PO .PAIN 1-3 OR TEMP Last administered on 01/18/19 08:28; Admin Dose 650 MG; Start 01/13/19 at 02:00 Acetaminophen/ Hydrocodone Bitart ([place] (5/325)) 1 tab Q6H PRN PO .PAIN 4-6 Last administered on 01/15/19 13:40; Admin Dose 1 TAB; Start 01/13/19 at 02:00 Docusate Sodium (Colace) 100 mg Q12H PRN PO .CONSTIPATION Last administered on 01/21/19 13:52; Admin Dose 100 MG; Start 01/13/19 at 02:00 Bisacodyl (Dulcolax) 5 mg DAILY PRN PO .CONSTIPATION Last administered on 01/21/19 13:52; Admin Dose 5 MG; Start 01/13/19 at 02:00 Atorvastatin Calcium (Lipitor) 40 mg DAILY@21 PO Last administered on 01/20/19 20:50; Admin Dose 40 MG; Start 01/13/19 at 21:00 Ferrous Sulfate (Ferrous Sulfate (Ec)) 325 mg BID PO Last administered on 01/21/19 09:54; Admin Dose 325 MG; Start 01/13/19 at 09:00 Folic Acid (Folic Acid) 1 mg DAILY PO Last administered on 01/21/19 09:54; Admin Dose 1 MG; Start 01/13/19 at 09:00 Insulin Glargine (Lantus) 20 units QHS SC Last administered on 01/14/19 22:04; Admin Dose 20 UNITS; Start 01/13/19 at 21:00; Status Hold Aspirin (Aspirin) 81 mg DAILY PO Last administered on 01/21/19 09:54; Admin Dose 81 MG; Start 01/13/19 at 11:00 Miscellaneous Information 1 ea NOTE XX ; Start 01/13/19 at 15:30 Glucose (Glutose) 15 gm Q15M PRN PO DECREASED GLUCOSE; Start 01/13/19 at 15:30 Glucose (Glutose) 22.5 gm Q15M PRN PO DECREASED GLUCOSE; Start 01/13/19 at 15:30 Dextrose (D50w Syringe) 25 ml Q15M PRN IV DECREASED GLUCOSE; Start 01/13/19 at 15:30 Dextrose (D50w Syringe) 50 ml Q15M PRN IV DECREASED GLUCOSE; Start 01/13/19 at 15:30 Glucagon (Glucagen) 1 mg Q15M PRN IM DECREASED GLUCOSE; Start 01/13/19 at 15:30 Glucose (Glutose) 15 gm Q15M PRN BUCCAL DECREASED GLUCOSE; Start 01/13/19 at 15:30 Epoetin Cam-epbx (Retacrit (Esrd)) 4,000 unit TuThSa@1700 SC Last administered on 01/21/19 17:34; Admin Dose 4,000 UNIT; Start 01/14/19 at 17:00 Levalbuterol (Xopenex Neb) 1.25 mg Q4H RESP THERAPY PRN HHN dyspnea; Start 01/14/19 at 19:00 Fentanyl 100 ml @ 5 mls/hr TITRATE IV Last administered on 01/18/19 21:11; Admin Dose 5 MLS/HR; Start 01/15/19 at 17:30 Norepinephrine 250 ml @ 1.875 mls/ hr TITRATE IV Last administered on 01/21/19 11:25; Admin Dose 15 MLS/HR; Start 01/15/19 at 17:30 Insulin Aspart (Novolog Insulin Pen) NOVOLOG *MILD* ALGORITHM Q4 SC Last administered on 01/21/19 14:08; Admin Dose 1 UNIT; Start 01/15/19 at 17:55 Ipratropium [place] (Atrovent Hfa) 4 puff Q6H RESP THERAPY INH Last admin istered on 01/21/19 13:36; Admin Dose 4 PUFF; Start 01/15/19 at 20:00 Famotidine (Pepcid Iv) 20 mg Q24H IV Last administered on 01/21/19 05:23; Admin Dose 20 MG; Start 01/16/19 at 06:00 Propofol 100 ml @ 2.46 mls/hr Q12H IV Last administered on 01/18/19 00:27; Admin Dose 9.84 MLS/HR; Start 01/15/19 at 23:00 Vasopressin 60 unit/Dextrose 60 ml @ 1.2 mls/hr Q12H IV Last administered on 01/18/19 05:05; Admin Dose 2.4 MLS/HR; Start 01/16/19 at 02:30 Phenylephrine HCl 250 ml @ 75 mls/hr TITRATE IV ; Start 01/16/19 at 10:30 Caspofungin 35 mg/ Sodium Chloride 250 ml @ 250 mls/hr Q24H IVPB Last admi nistered on 01/21/19 15:15; Admin Dose 250 MLS/HR; Start 01/17/19 at 15:00 Docusate Sodium (Colace Liquid Cup) 100 mg BID NGT Last administered on 01/21/19 09:53; Admin Dose 100 MG; Start 01/17/19 at 21:00 Collagenase (Santyl) 1 applic BID TOP Last administered on 01/21/19 09:54; Admin Dose 1 APPLIC; Start 01/17/19 at 21:00 Dexmedetomidine HCl 200 mcg/ Sodium Chloride 50 ml @ 4.1 mls/hr TITRATE IV Last administered on 01/19/19 06:46; Admin Dose 4.1 MLS/HR; Start 01/18/19 at 08:00 Albumin Human 100 ml @ 100 mls/hr DURING DIALYSIS PRN IV BLOOD PRESSURE SUPPORT Last administered on 01/20/19 23:33; Admin Dose 100 MLS/HR; Start 01/18/19 at 11:30 Lactulose (Enulose) 20 gm BID PO Last administered on 01/21/19 09:55; Admin Dose 20 GM; Start 01/19/19 at 21:00 Metoclopramide HCl (Reglan) 5 mg Q6 IV Last administered on 01/21/19 17:33; Admin Dose 5 MG; Start 01/19/19 at 20:00 Amiodarone HCl 900 mg/Dextrose 500 ml @ 0 mls/hr Q0M IV Last administered on 01/21/19 02:54; Admin Dose 33.3 MLS/HR; Start 01/21/19 at 03:00 Heparin Sodium (Porcine) (Heparin (5000 Units/1ml)) 5,000 unit BID SC Last administered on 01/21/19 09:57; Admin Dose 5,000 UNIT; Start 01/21/19 at 09:00; Status Hold Vancomycin HCl 1.25 gm/Sodium Chloride 250 ml @ 83.333 mls/ hr Q96H IVPB Last administered on 01/21/19 17:32; Admin Dose 83.333 MLS/HR; Start 01/21/19 at 18:00 Amikacin Sulfate (Amikacin Iv Per Pharmacy) AMIKACIN PER PHARMACY NOTE XX ; Start 01/21/19 at 11:30 Metronidazole 100 ml @ 100 mls/hr Q8 IVPB Last administered on 01/21/19at 13:51; Admin Dose 100 MLS/HR; Start 01/21/19 at 14:00 Amikacin Sulfate 375 mg/Sodium Chloride 101.5 ml @ 101.5 mls/ hr AFTER DIALYSIS IVPB ; Start 01/22/19 at 09:[address] SUPERINTENDENT Jan 21, 2019 17:47
[2019-01-21] MEDS ORDERED: VANCOMYCIN HCL 1.25 GM in SOD CHLORIDE 0.9% 250 ML IVPB SCH (18:00)
[2019-01-21] MEDS: ATORVASTATIN 40 MG TAB PO SCH (20:25)
[2019-01-22] VITALS (104 sets, daily range): BP systolic 64–128; BP diastolic 39–79; PULSE 98–126; RESP 14–29
[2019-01-22] MEDS: METOCLOPRAMIDE 10 MG INJ IV SCH ×4 (00:33→16:40)
[2019-01-22] MEDS: INSULIN ASPART [NOVOLOG] 3 ML PEN SC SCH ×6 (00:33→20:41)
[2019-01-22] MEDS: IPRATROPIUM (HFA) 12.9 GM INHALER INH SCH ×4 (01:37→19:38)
[2019-01-22] MEDS: VASOPRESSIN 60 UNIT in DEXTROSE 5% 57 ML IV SCH ×2 (02:30→13:12)
[2019-01-22] MEDS: NORepinephrine 8MG/250 ML (PMX 250 ML IV SCH ×5 (02:53→23:25)
[2019-01-22] MEDS: metroNIDAZOLE 500 MG/NS (PMX) 100 ML IVPB SCH ×3 (05:16→22:01)
[2019-01-22] MEDS: FAMOTIDINE 20 MG INJ IV SCH (05:16)
[2019-01-22] MEDS: DOCUSATE SODIUM 10 MG/ML (10ML CUP) NGT SCH ×2 (08:17→20:41)
[2019-01-22] MEDS: FERROUS SULFATE (EC) 325 MG TAB PO SCH ×2 (08:17→20:41)
[2019-01-22] MEDS: FOLIC ACID 1 MG TAB PO SCH (08:17)
[2019-01-22] MEDS: BALSAM PERU/CASTOR OIL 60 GM TUBE TOP SCH ×2 (08:18→20:41)
[2019-01-22] MEDS: COLLAGENASE 5 GM (UD JAR) TOP SCH ×2 (08:18→20:41)
[2019-01-22] MEDS: PROPOFOL 100 ML IV SCH ×2 (08:22→23:00)
[2019-01-22] MEDS: ASPIRIN 81 MG TAB PO SCH (08:32)
[2019-01-22] MEDS: LACTULOSE 30ML CUP PO SCH ×2 (08:32→20:41)
--- NOTE | 2019-01-22 08:44 | PN ---
Date/Time of Note Date/Time of Note DATE: 01/22/19 TIME: 08:41 Assessment/Plan VTE Prophylaxis Risk score (from [facility])>0 risk: 12 SCD applied (from Ns): Yes Pharmacological prophylaxis: NA/contraindicated Pharm contraindication: other (coagulopathy) Lines/Catheters [facility] (from [facility] Central Line Central line still needed: Yes Urinary Cath still in place: No Assessment/Plan Hospital Course 1. Sepsis shock secondary to underlying healthcare associated pneumonia - continue abx - ID following 2. 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 NSTEMI type II secondary to demand - Echo with preserved EF - troponin marker downward trended - boat hand following 5 Coronary artery disease: History of CABG - statin/asa 6. End-stage renal disease - continue HD - f/u nephro recs - correct electrolytes as needed 7. Diabetes mellitus - A1c 4.7 - Continue insulin regimen 8. Hypertension - hypotensive - on vasopressors - titrate down 9. Lower back pain with left leg weakness: Possibly resulting in sciatica. - Continue PT once more stable 10. elevated LFT - monitor LFT - is upward trending - abd imaging 01.17.19: - Nodular liver surface, concerning for cirrhosis. Mild ascites. - Findings compatible with mild diffuse colitis, as above. - Cholelithiasis, without evidence for cholecystitis. - Mild fat-containing bilateral inguinal hernias, without incarceration. Nasogastric tube tip is in the stomach. - GI consult - Plan for MRCP per GI once more stable 11. afib (new) - continue on amiodarone DISPO.PLAN: Patient on pressors still. continue to titrate down. f/u chest imaging. continue abx. Will discuss with family goals of care. prognosis poor at present Discussed plan of care with Dr. Nieves More than 30 minutes spent on this encounter Result Diagram: 01/22/19 0430 01/22/19 0430 Results 24hrs Laboratory Tests Test 01/21/19 09:09 01/21/19 13:58 01/21/19 17:29 01/21/19 20:32 Bedside Glucose 149 149 130 133 Test 01/22/19 00:21 01/22/19 04:21 01/22/19 04:30 01/22/19 08:16 Bedside Glucose 133 130 144 White Blood Count 21.4 H Red Blood Count 2.77 L Hemoglobin 8.8 L Hematocrit 27.6 L Mean Corpuscular Volume 99.6 Mean Corpuscular 31.8 Hemoglobin Mean Corpuscular 31.9 L Hemoglobin Concent Red Cell Distribution 18.1 H Width Platelet Count 100 #L Mean Platelet Volume 12.4 H Immature Granulocytes % 1.300 H Neutrophils % Lymphocytes % Monocytes % Eosinophils % Basophils % Nucleated Red Blood 0.2 H Cells % Immature Granulocytes # 0.270 H Neutrophils # Lymphocytes # Monocytes # Eosinophils # Basophils # Nucleated Red Blood Cells # Sodium Level 141 Potassium Level 4.1 Chloride Level 106 Carbon Dioxide Level 24 Anion Gap 11 Blood Urea Nitrogen 25 H Creatinine 3.88 #H Est Glomerular Filtrat Rate mL/min Glucose Level 142 Calcium Level 8.5 Total Bilirubin 6.1 H Direct Bilirubin 5.30 H Indirect Bilirubin 0.8 Aspartate Amino 139 H Transf (AST/SGOT) Alanine 32 Aminotransferase (ALT/SG PT) Alkaline Phosphatase 189 H Total Protein 5.1 L Albumin 2.3 L Subjective 24 Hr Interval Summary Free Text/Dictation Remains intubated on pressors. RN at bedside. Exam/Review of Systems Exam Vitals Vital Signs Date Temp Pulse Resp B/P (MAP) Pulse Ox O2 O2 Flow FiO2 Time Delivery Rate 01/22/19 118 19 71/47 (55) 96 08:15 01/22/19 99.9 Mechanical 08:00 Ventilator 01/22/19 45 03:00 Intake and Output 01/21/19 01/21/19 01/22/19 1515:00 23:00 07:00 IntakeIntake Total 642.250 ml 839.705 ml 430.10 ml OutputOutput Total 0 ml 0 ml BalanceBalance 642.250 ml 839.705 ml 430.10 ml Exam Constitutional: No alert, No oriented (intubated and sedated ) Eyes: icteric Respiratory: no wheezing noted (on mech vent ), Cardiac: other (regular rate ) Gastrointestinal: soft Genitourinary - Male: other (juarez catheter in place ) Neurological: No SMALL BUSINESS REPRESENTATIVE II-XII intact, No nl mental status (intubated/sedated ) Skin: other (decubitus ulcer sacral area ) Results Results 24hrs Laboratory Tests Test 01/21/19 09:09 01/21/19 13:58 01/21/19 17:29 01/21/19 20:32 Bedside Glucose 149 149 130 133 Test 01/22/19 00:21 01/22/19 04:21 01/22/19 04:30 01/22/19 08:16 Bedside Glucose 133 130 144 White Blood Count 21.4 H Red Blood Count 2.77 L Hemoglobin 8.8 L Hematocrit 27.6 L Mean Corpuscular Volume 99.6 Mean Corpuscular 31.8 Hemoglobin Mean Corpuscular 31.9 L Hemoglobin Concent Red Cell Distribution 18.1 H Width Platelet Count 100 #L Mean Platelet Volume 12.4 H Immature Granulocytes % 1.300 H Neutrophils % Lymphocytes % Monocytes % Eosinophils % Basophils % Nucleated Red Blood 0.2 H Cells % Immature Granulocytes # 0.270 H Neutrophils # Lymphocytes # Monocytes # Eosinophils # Basophils # Nucleated Red Blood Cells # Sodium Level 141 Potassium Level 4.1 Chloride Level 106 Carbon Dioxide Level 24 Anion Gap 11 Blood Urea Nitrogen 25 H Creatinine 3.88 #H Est Glomerular Filtrat Rate mL/min Glucose Level 142 Calcium Level 8.5 Total Bilirubin 6.1 H Direct Bilirubin 5.30 H Indirect Bilirubin 0.8 Aspartate Amino 139 H Transf (AST/SGOT) Alanine 32 Aminotransferase (ALT/SG PT) Alkaline Phosphatase 189 H Total Protein 5.1 L Albumin 2.3 L Medications Medication Current Medications Vancomycin HCl (Vanco Iv Per Pharmacy) VANCOMYCIN PER PHARMACY PER PROTOCOL XX ; Start 01/13/19 at 02:00 IV Flush (NS 3 ml) 3 ml PER PROTOCOL IV ; Start 01/13/19 at 02:00 Acetaminophen (Tylenol Tab) 650 mg Q6H PRN PO .PAIN 1-3 OR TEMP Last administered on 01/18/19 08:28; Admin Dose 650 MG; Start 01/13/19 at 02:00 Acetaminophen/ Hydrocodone Bitart ([place] (5/325)) 1 tab Q6H PRN PO .PAIN 4-6 Last administered on 01/15/19 13:40; Admin Dose 1 TAB; Start 01/13/19 at 02:00 Docusate Sodium (Colace) 100 mg Q12H PRN PO .CONSTIPATION Last administered on 01/21/19 13:52; Admin Dose 100 MG; Start 01/13/19 at 02:00 Bisacodyl (Dulcolax) 5 mg DAILY PRN PO .CONSTIPATION Last administered on 01/21/19 13:52; Admin Dose 5 MG; Start 01/13/19 at 02:00 Atorvastatin Calcium (Lipitor) 40 mg DAILY@21 PO Last administered on 01/21/19 20:25; Admin Dose 40 MG; Start 01/13/19 at 21:00 Ferrous Sulfate (Ferrous Sulfate (Ec)) 325 mg BID PO Last administered on 01/22/19 08:17; Admin Dose 325 MG; Start 01/13/19 at 09:00 Folic Acid (Folic Acid) 1 mg DAILY PO Last administered on 01/22/19 08:17; Admin Dose 1 MG; Start 01/13/19 at 09:00 Insulin Glargine (Lantus) 20 units QHS SC Last administered on 01/14/19 22:04; Admin Dose 20 UNITS; Start 01/13/19 at 21:00; Status Hold Aspirin (Aspirin) 81 mg DAILY PO Last administered on 01/21/19 09:54; Admin Dose 81 MG; Start 01/13/19 at 11:00 Miscellaneous Information 1 ea NOTE XX ; Start 01/13/19 at 15:30 Glucose (Glutose) 15 gm Q15M PRN PO DECREASED GLUCOSE; Start 01/13/19 at 15:30 Glucose (Glutose) 22.5 gm Q15M PRN PO DECREASED GLUCOSE; Start 01/13/19 at 15:30 Dextrose (D50w Syringe) 25 ml Q15M PRN IV DECREASED GLUCOSE; Start 01/13/19 at 15:30 Dextrose (D50w Syringe) 50 ml Q15M PRN IV DECREASED GLUCOSE; Start 01/13/19 at 15:30 Glucagon (Glucagen) 1 mg Q15M PRN IM DECREASED GLUCOSE; Start 01/13/19 at 15:30 Glucose (Glutose) 15 gm Q15M PRN BUCCAL DECREASED GLUCOSE; Start 01/13/19 at 15:30 Epoetin Cam-epbx (Retacrit (Esrd)) 4,000 unit TuThSa@1700 SC Last administered on 01/21/19 17:34; Admin Dose 4,000 UNIT; Start 01/14/19 at 17:00 Levalbuterol (Xopenex Neb) 1.25 mg Q4H RESP THERAPY PRN HHN dyspnea; Start 01/14/19 at 19:00 Fentanyl 100 ml @ 5 mls/hr TITRATE IV Last administered on 01/18/19 21:11; Admin Dose 5 MLS/HR; Start 01/15/19 at 17:30 Norepinephrine 250 ml @ 1.875 mls/ hr TITRATE IV Last administered on 01/22/19 02:53; Admin Dose 41.25 MLS/HR; Start 01/15/19 at 17:30 Insulin Aspart (Novolog Insulin Pen) NOVOLOG *MILD* ALGORITHM Q4 SC Last administered on 01/22/19 08:20; Admin Dose 1 UNIT; Start 01/15/19 at 17:55 Ipratropium [place] (Atrovent Hfa) 4 puff Q6H RESP THERAPY INH Last administered on 01/22/19 01:37; Admin Dose 4 PUFF; Start 01/15/19 at 20:00 Famotidine (Pepcid Iv) 20 mg Q24H IV Last administered on 01/22/19 05:16; Admin Dose 20 MG; Start 01/16/19 at 06:00 Propofol 100 ml @ 2.46 mls/hr Q12H IV Last administered on 01/18/19 00:27; Admin Dose 9.84 MLS/HR; Start 01/15/19 at 23:00 Vasopressin 60 unit/Dextrose 60 ml @ 1.2 mls/hr Q12H IV Last administered on 01/18/19 05:05; Admin Dose 2.4 MLS/HR; Start 01/16/19 at 02:30 Phenylephrine HCl 250 ml @ 75 mls/hr TITRATE IV ; Start 01/16/19 at 10:30 Caspofungin 35 mg/ Sodium Chloride 250 ml @ 250 mls/hr Q24H IVPB Last administered on 01/21/19 15:15; Admin Dose 250 MLS/HR; Start 01/17/19 at 15:00 Docusate Sodium (Colace Liquid Cup) 100 mg BID NGT Last administered on 01/22/19 08:17; Admin Dose 100 MG; Start 01/17/19 at 21:00 Collagenase (Santyl) 1 applic BID TOP Last administered on 01/22/19 08:18; Admin Dose 1 APPLIC; Start 01/17/19 at 21:00 Dexmedetomidine HCl 200 mcg/ Sodium Chloride 50 ml @ 4.1 mls/hr TITRATE IV Last administered on 01/19/19 06:46; Admin Dose 4.1 MLS/HR; Start 01/18/19 at 08:00 Albumin Human 100 ml @ 100 mls/hr DURING DIALYSIS PRN IV BLOOD PRESSURE SUPPORT Last administered on 01/20/19 23:33; Admin Dose 100 MLS/HR; Start 01/18/19 at 11:30 Lactulose (Enulose) 20 gm BID PO Last administered on 01/21/19 20:25; Admin Dose 20 GM; Start 01/19/19 at 21:00 Metoclopramide HCl (Reglan) 5 mg Q6 IV Last administered on 01/22/19 08:18; Admin Dose 5 MG; Start 01/19/19 at 20:00 Amiodarone HCl 900 mg/Dextrose 500 ml @ 0 mls/hr Q0M IV Last administered on 01/21/19 02:54; Admin Dose 33.3 MLS/HR; Start 01/21/19 at 03:00 Heparin Sodium (Porcine) (Heparin (5000 Units/1ml)) 5,000 unit BID SC Last administered on 01/21/19 09:57; Admin Dose 5,000 UNIT; Start 01/21/19 at 09:00; Status Hold Vancomycin HCl 1.25 gm/Sodium Chloride 250 ml @ 83.333 mls/ hr Q96H IVPB Last administered on 01/21/19 17:32; Admin Dose 83.333 MLS/HR; Start 01/21/19 at 18:00 Amikacin Sulfate (Amikacin Iv Per Pharmacy) AMIKACIN PER PHARMACY NOTE XX ; Start 01/21/19 at 11:30 Metronidazole 100 ml @ 100 mls/hr Q8 IVPB Last administered on 01/22/19 05:16; Admin Dose 100 MLS/HR; Start 01/21/19 at 14:00 Amikacin Sulfate 375 mg/Sodium Chloride 101.5 ml @ 101.5 mls/ hr AFTER DIALYSIS IVPB ; Start 01/22/19 at 09:00 SULEIMAN BOYD NP Jan 22, 2019 08:44
[2019-01-22] MEDS ORDERED: AMIKACIN 375 MG in SOD CHLORIDE 0.9% 100 ML IVPB SCH (09:00)
--- NOTE | 2019-01-22 09:28 | CONS ---
Assessment/Plan Assessment/Plan Hospital Course (Demo Recall) Chest x-ray showing bilateral pneumonia. Ventilator setting; AC of 20, tidal volume 500, PEEP of 5, 40% FiO2. Patient is currently on fentanyl 25 mics per hour, Precedex drip as well. Assessment and recommendations; 1. Patient admitted with severe bilateral pneumonia still requiring full me chanical ventilatory support. 2. Some element of encephalopathy. Patient however currently is sedated. 3. History of prior CABG. 4. Anemia and severe thrombocytopenia. 5. Chronic renal failure, dialysis dependent. 6. History of cardiac arrhythmia. 7. History of hypertension and diabetes. Hold further sedation to assess mental status. Continue current supportive care. 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 Prognosis is guarded at this point. 35 minutes of critical care time was spent evaluating the patient. Assessment/Plan (Daily) Ventilator setting; AC of 20, tidal volume 500, PEEP of 5, 45% FiO2. Patient is on Levophed 24 mics per minute. Assessment and recommendations; 1. patient admitted with severe sepsis due to pneumonia currently on appropriate antimicrobial regimen. 2. Pulmonary edema with CHF. 3. History of chronic renal failure, hemodialysis dependent. 4. Worsening hypotension. 5. Thrombocytopenia with interval improvement. 6. Anemia of chronic disease. 7. Prior CABG. 8. Chronic atrial fibrillation. 9. Severe encephalopathy. Likely toxic/metabolic. 10. History of diabetes. Continue current supportive care. Antibiotics per ID recommendations. Obtain follow-up chest x-ray. Hold hemodialysis because of significant hypotension. Prognosis appears poor. I did have a detailed discussion with the patient's niece over the phone yesterday and apprised her of her uncle's condition. 35 minutes of critical care time was spent evaluating the patient. Consultation Date/Type/Reason Admit Date/Time January 13, 2019 at 00:07 Initial Consult Date 01/17/19 Type of Consult Pulmonary/critical care Patient's condition is critical. Patient is currently sedated. Patient however has remained hemodynamically stable. General exam; elderly male, orally intubated, sedated, currently in no distress. Date/Time of Note DATE: 01/22/19 TIME: 09:25 24 HR Interval Summary Free Text/Dictation Patient's condition is critical. Patient remains essentially unresponsive and noncommunicative. Remains in atrial fibrillation with rate well controlled. Off amiodarone drip. General exam; elderly male, orally intubated, noncommunicative. Currently in no distress. Occasionally opens eyes on sternal rubbing. Exam/Review of Systems Exam Vitals Vital Signs Date Temp Pulse Resp B/P (MAP) Pulse Ox O2 O2 Flow FiO2 Time Delivery Rate 01/22/19 118 19 71/47 (55) 96 08:15 01/22/19 99.9 Mechanical 08:00 Ventilator 01/22/19 45 03:00 Intake and Output 01/21/19 01/21/19 01/22/19 1515:00 23:00 07:00 IntakeIntake Total 642.250 ml 839.705 ml 430.10 ml OutputOutput Total 0 ml 0 ml BalanceBalance 642.250 ml 839.705 ml 430.10 ml Exam HE ENT exam; supple neck, positive JVD. No lymphadenopathy. Midline trachea. No thyromegaly. Orally intubated. Patient has fair dentition. No neck masses. Chest exam; diminished breath sounds throughout. S1-S2 audible, no murmurs. Irregular rhythm. There is a well-healed sternal scar. Abdomen exam; soft, mildly protuberant. No organomegaly. Bowel sounds audible. Extremity exam; no edema. 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 Results Result Diagram: 01/22/19 0430 01/22/19 0430 Results 24hrs Laboratory Tests Test 01/21/19 13:58 01/21/19 17:29 01/21/19 20:32 01/22/19 00:21 Bedside Glucose 149 130 133 133 Test 01/22/19 04:21 01/22/19 04:30 01/22/19 08:16 Bedside Glucose 130 144 White Blood Count 21.4 H Red Blood Count 2.77 L Hemoglobin 8.8 L Hematocrit 27.6 L Mean Corpuscular Volume 99.6 Mean Corpuscular 31.8 Hemoglobin Mean Corpuscular 31.9 L Hemoglobin Concent Red Cell Distribution 18.1 H Width Platelet Count 100 #L Mean Platelet Volume 12.4 H Immature Granulocytes % 1.300 H Neutrophils % Lymphocytes % Monocytes % Eosinophils % Basophils % Nucleated Red Blood 0.2 H Cells % Immature Granulocytes # 0.270 H Neutrophils # Lymphocytes # Monocytes # Eosinophils # Basophils # Nucleated Red Blood Cells # Sodium Level 141 Potassium Level 4.1 Chloride Level 106 Carbon Dioxide Level 24 Anion Gap 11 Blood Urea Nitrogen 25 H Creatinine 3.88 #H Est Glomerular Filtrat Rate mL/min Glucose Level 142 Calcium Level 8.5 Total Bilirubin 6.1 H Direct Bilirubin 5.30 H Indirect Bilirubin 0.8 Aspartate Amino 139 H Transf (AST/SGOT) Alanine 32 Aminotransferase (ALT/SG PT) Alkaline Phosphatase 189 H Total Protein 5.1 L Albumin 2.3 L Medications Medication Current Medications Vancomycin HCl (Vanco Iv Per Pharmacy) VANCOMYCIN PER PHARMACY PER PROTOCOL XX ; Start 01/13/19 at 02:00 IV Flush (NS 3 ml) 3 ml PER PROTOCOL IV ; Start 01/13/19 at 02:00 Acetaminophen (Tylenol Tab) 650 mg Q6H PRN PO .PAIN 1-3 OR TEMP Last administered on 01/18/19 08:28; Admin Dose 650 MG; Start 01/13/19 at 02:00 Acetaminophen/ Hydrocodone Bitart ([place] (5/325)) 1 tab Q6H PRN PO .PAIN 4-6 Last administered on 01/15/19 13:40; Admin Dose 1 TAB; Start 01/13/19 at 02:00 Docusate Sodium (Colace) 100 mg Q12H PRN PO .CONSTIPATION Last administered on 01/21/19 13:52; Admin Dose 100 MG; Start 01/13/19 at 02:00 Bisacodyl (Dulcolax) 5 mg DAILY PRN PO .CONSTIPATION Last administered on 01/21/19 13:52; Admin Dose 5 MG; Start 01/13/19 at 02:00 Atorvastatin Calcium (Lipitor) 40 mg DAILY@21 PO Last administered on 01/21/19 20:25; Admin Dose 40 MG; Start 01/13/19 at 21:00 Ferrous Sulfate (Ferrous Sulfate (Ec)) 325 mg BID PO Last administered on 01/22/19 08:17; Admin Dose 325 MG; Start 01/13/19 at 09:00 Folic Acid (Folic Acid) 1 mg DAILY PO Last administered on 01/22/19 08:17; Admin Dose 1 MG; Start 01/13/19 at 09:00 Insulin Glargine (Lantus) 20 units QHS SC Last administered on 01/14/19 22:04; Admin Dose 20 UNITS; Start 01/13/19 at 21:00; Status Hold Aspirin (Aspirin) 81 mg DAILY PO Last administered on 01/22/19 08:32; Admin Dose 81 MG; Start 01/13/19 at 11:00 Miscellaneous Information 1 ea NOTE XX ; Start 01/13/19 at 15:30 Glucose (Glutose) 15 gm Q15M PRN PO DECREASED GLUCOSE; Start 01/13/19 at 15:30 Glucose (Glutose) 22.5 gm Q15M PRN PO DECREASED GLUCOSE; Start 01/13/19 at 15:30 Dextrose (D50w Syringe) 25 ml Q15M PRN IV DECREASED GLUCOSE; Start 01/13/19 at 15:30 Dextrose (D50w Syringe) 50 ml Q15M PRN IV DECREASED GLUCOSE; Start 01/13/19 at 15:30 Glucagon (Glucagen) 1 mg Q15M PRN IM DECREASED GLUCOSE; Start 01/13/19 at 15:30 Glucose (Glutose) 15 gm Q15M PRN BUCCAL DECREASED GLUCOSE; Start 01/13/19 at 15:30 Epoetin Cam-epbx (Retacrit (Esrd)) 4,000 unit TuThSa@1700 SC Last administered on 01/21/19at 17:34; Admin Dose 4,000 UNIT; Start 01/14/19 at 17:00 Levalbuterol (Xopenex Neb) 1.25 mg Q4H RESP THERAPY PRN HHN dyspnea; Start 01/14/19 at 19:00 Fentanyl 100 ml @ 5 mls/hr TITRATE IV Last administered on 01/18/19at 21:11; Admin Dose 5 MLS/HR; Start 01/15/19 at 17:30 Norepinephrine 250 ml @ 1.875 mls/ hr TITRATE IV Last administered on 01/22/19at 08:40; Admin Dose 1.875 MLS/HR; Start 01/15/19 at 17:30 Insulin Aspart (Novolog Insulin Pen) NOVOLOG *MILD* ALGORITHM Q4 SC Last administered on 01/22/19at 08:20; Admin Dose 1 UNIT; Start 01/15/19 at 17:55 Ipratropium [place] (Atrovent Hfa) 4 puff Q6H RESP THERAPY INH Last administe red on 01/22/19at 01:37; Admin Dose 4 PUFF; Start 01/15/19 at 20:00 Famotidine (Pepcid Iv) 20 mg Q24H IV Last administered on 01/22/19 05:16; Admin Dose 20 MG; Start 01/16/19 at 06:00 Propofol 100 ml @ 2.46 mls/hr Q12H IV Last administered on 01/18/19 00:27; Admin Dose 9.84 MLS/HR; Start 01/15/19 at 23:00 Vasopressin 60 unit/Dextrose 60 ml @ 1.2 mls/hr Q12H IV Last administered on 01/18/19 05:05; Admin Dose 2.4 MLS/HR; Start 01/16/19 at 02:30 Phenylephrine HCl 250 ml @ 75 mls/hr TITRATE IV ; Start 01/16/19 at 10:30 Caspofungin 35 mg/ Sodium Chloride 250 ml @ 250 mls/hr Q24H IVPB Last administ ered on 01/21/19 15:15; Admin Dose 250 MLS/HR; Start 01/17/19 at 15:00 Docusate Sodium (Colace Liquid Cup) 100 mg BID NGT Last administered on 01/22/19 08:17; Admin Dose 100 MG; Start 01/17/19 at 21:00 Collagenase (Santyl) 1 applic BID TOP Last administered on 01/22/19 08:18; Admin Dose 1 APPLIC; Start 01/17/19 at 21:00 Dexmedetomidine HCl 200 mcg/ Sodium Chloride 50 ml @ 4.1 mls/hr TITRATE IV [place] [facility] administered on 01/19/19 06:46; Admin Dose 4.1 MLS/HR; Start 01/18/19 at 08:00 Albumin Human 100 ml @ 100 mls/hr DURING DIALYSIS PRN IV BLOOD PRESSURE SUPPORT Last administered on 01/20/19 23:33; Admin Dose 100 MLS/HR; Start 01/18/19 at 11:30 Lactulose (Enulose) 20 gm BID PO Last administered on 01/22/19 08:32; Admin Dose 20 GM; Start 01/19/19 at 21:00 Metoclopramide HCl (Reglan) 5 mg Q6 IV Last administered on 01/22/19 08:18; Admin Dose 5 MG; Start 01/19/19 at 20:00 Amiodarone HCl 900 mg/Dextrose 500 ml @ 0 mls/hr Q0M IV Last administered on 01/21/19at 02:54; Admin Dose 33.3 MLS/HR; Start 01/21/19 at 03:00 Heparin Sodium (Porcine) (Heparin (5000 Units/1ml)) 5,000 unit BID SC Last administered on 01/21/19at 09:57; Admin Dose 5,000 UNIT; Start 01/21/19 at 09:00; Status Hold Vancomycin HCl 1.25 gm/Sodium Chloride 250 ml @ 83.333 mls/ hr Q96H IVPB Last administered on 01/21/19at 17:32; Admin Dose 83.333 MLS/HR; Start 01/21/19 at 18:00 Amikacin Sulfate (Amikacin Iv Per Pharmacy) AMIKACIN PER PHARMACY NOTE XX ; Start 01/21/19 at 11:30 Metronidazole 100 ml @ 100 mls/hr Q8 IVPB Last administered on 01/22/19at 05:16; Admin Dose 100 MLS/HR; Start 01/21/19 at 14:00 Amikacin Sulfate 375 mg/Sodium Chloride 101.5 ml @ 101.5 mls/ hr AFTER DIALYSIS IVPB ; Start 01/22/19 at 09:00 BENIGNO MOBLEY 9, 2019 09:28
--- NOTE | 2019-01-22 13:09 | CONS ---
Assessment/Plan Assessment/Plan Hospital Course (Demo Recall) ID NOTE CURRENT ABX: DAY #11 =>Vanco IV + Cancidas #7 + Amikacin #2 + Flagyl #2 s/p MERREM + 01/22/19 0430 01/22/19 0430 24H INTERVAL SUMMARY * Too unstable for HD today which was deferred for tachycardia/hypotension * Merrem changed to Amikacin IV + Flagyl due to concern colitis flare w/Merrem * CT Brain showed bilateral mastoiditis * 01/22/19 CXR Changes are again seen concerning for bilateral pneumonia versus asymmetric left-sided pulmonary congestion * (+)Icteric - ETOH liver decompensation contributing to hypotension and tachycardia -- liver not able to make vascular protein * Indwelling's endotracheal tube, NG tube, right IJ triple-lumen catheter, left upper extremity AV fistula MICRO/OTHER * 01/12/19 BCx (-) * 01/15/19 BCx (-) * 01/15/19 Resp Cx (+) RESPIRATORY CULTURE Final Organism 1 YEAST,NOT JESÚS ALBICANS QUANTITY 1+ * 01/15/19 (-)MRSA nares * 01/18/19 Trach Aspirate Cx (+) RESPIRATORY CULTURE Final Organism 1 NORMAL RESPIRATORY REBECCA QUANTITY SCANT GROWTH Organism 2 YEAST,NOT JESÚS ALBICANS QUANTITY SCANT GROWTH IMAGING * 01/22/19 CXR:01/22/19 CXR Changes are again seen concerning for bilateral pneumonia versus asymmetric left-sided pulmonary congestion * 01/21/19 CT BRAIN: 1. No acute intracranial pathology.2. Mild diffuse volume loss and mild chronic microvascular ischemic changes. 3. Complete opacification of the right mastoid air cells with mild left mastoid air cell disease. * 01/21/19 CXR: Satisfactory position of right central venous catheter, endotracheal tube, and nasogastric tube. Low lung volumes with layering left pleural effusion and bilateral left greater than right infiltrates * 01/17/19: CT abdomen pelvis without contrast revealed diffuse colitis. Cholelithiasis without evidence for cholecystitis. Nonspecific patchy bibasilar pulmonary consolidation. Please see full report in the chart PHYSICAL EXAMINATION: GENERAL: VSS, NAD, critically ill, sedated in ICU HEENT: AT, NC, (+)Icteric, (+)ETT & NGT secure NECK: Trach midline, neck supple moves side to side CHEST: Equal chest rise bilaterally without dyspnea on observation ABD: Soft, large EXTREMITIES: Warm, dry, trace edema SKIN: No rash, no diaphoresis ID ASSESSMENT 73 yo M admit with: 1. Severe sepsis with shock associated w/ acute encephalopathy 2. Acute hypoxemic respiratory failure/CHF exacerbation 3. Healthcare associated pneumonia possibly aspirated 4. Colitis 5. End-stage renal disease, hemodialysis dependent 6. Coronary artery disease w/ Hx of CABG 7. Hx of HTN 8. Hx of cardiac arrhythmia --> Amiodarone onboard = avoid QT prolonging meds 9. Diabetes 10. Transaminitis with elevated total bilirubin 11. Cholelithiasis, without evidence for cholecystitis. 12. Mild fat-containing bilateral inguinal hernias, without incarceration. 13. Subacute moderate compression deformity of T12 * Hx of fall 1.5 mos ago 14. Bilateral acute mastoiditis * 01/21/19 CT BRAIN: Complete opacification of the right mastoid air cells with mild left mastoid air cell disease. (-)MRSA Nares ABX ALLERGIES: KNDA INVASIVES: R-IJ TLC, ETT, NGT, LUEXT AVF CURRENT ABX: DAY #11 =>Vanco IV + Cancidas #7 + Amikacin #2 + Flagyl #2 ID RECOMMENDATIONS/PLAN: 1. Patient with acute colitis and negative pulmonary cx for bacteria -- Merrem changed to Aminoglycoside/Flagy to avoid colitis flare * Continue Cancidas for opportunistic yeast trach aspirate * Continue Aminoglycoside + Flagyl = less likely to flare ABX associated colitis * Continue Vanco IV for now-> When stable will de-escalate due to (-)MRSA 2. ID RESP THERAPIST colleague to f/u Wednesday . Consultation Date/Type/Reason Admit Date/Time January 13, 2019 at 00:07 Initial Consult Date 01/17/19 Date/Time of Note DATE: 01/22/19 TIME: 13:00 Exam/Review of Systems Exam Vitals Vital Signs Date Temp Pulse Resp B/P (MAP) Pulse Ox O2 O2 Flow FiO2 Time Delivery Rate 01/22/19 117 12:00 01/22/19 24 96/46 (63) 96 Mechanical 11:30 Ventilator 01/22/19 45 08:00 01/22/19 99.9 08:00 Intake and Output 01/21/19 01/21/19 01/22/19 1515:00 23:00 07:00 IntakeIntake Total 642.250 ml 839.705 ml 467.60 ml OutputOutput Total 0 ml 0 ml BalanceBalance 642.250 ml 839.705 ml 467.60 ml Results Result Diagram: 01/22/19 0430 01/22/19 0430 Results 24hrs Laboratory Tests Test 01/21/19 13:58 01/21/19 17:29 01/21/19 20:32 01/22/19 00:21 Bedside Glucose 149 130 133 133 Test 01/22/19 04:21 01/22/19 04:30 01/22/19 08:16 Bedside Glucose 130 144 White Blood Count 21.4 H Red Blood Count 2.77 L Hemoglobin 8.8 L Hematocrit 27.6 L Mean Corpuscular Volume 99.6 Mean Corpuscular 31.8 Hemoglobin Mean Corpuscular 31.9 L Hemoglobin Concent Red Cell Distribution 18.1 H Width Platelet Count 100 #L Mean Platelet Volume 12.4 H Immature Granulocytes % 1.300 H Neutrophils % Segmented Neutrophils 82 H % (Manual) Band Neutrophils % 2 (Manual) Lymphocytes % Lymphocytes % (Manual) 11 L Monocytes % Monocytes % (Manual) 3 Eosinophils % Eosinophils % (Manual) 2 Basophils % Nucleated Red Blood 0.2 H Cells % Immature Granulocytes # 0.270 H Neutrophils # Neutrophils # (Manual) 17.6 H Band Neutrophils # 0.4 Lymphocytes (Manual) 2.3 Lymphocytes # Monocytes # Monocytes # (Manual) 0.6 Eosinophils # Basophils # Nucleated Red Blood Cells # Platelet Estimate DECREASED Giant Platelets 1 H Polychromasia 3+ Poikilocytosis 3+ Anisocytosis 3+ Microcytosis 3+ Macrocytosis 1+ Sodium Level 141 Potassium Level 4.1 Chloride Level 106 Carbon Dioxide Level 24 Anion Gap 11 Blood Urea Nitrogen 25 H Creatinine 3.88 #H Est Glomerular Filtrat Rate mL/min Glucose Level 142 Calcium Level 8.5 Total Bilirubin 6.1 H Direct Bilirubin 5.30 H Indirect Bilirubin 0.8 Aspartate Amino 139 H Transf (AST/SGOT) Alanine 32 Aminotransferase (ALT/SG PT) Alkaline Phosphatase 189 H Total Protein 5.1 L Albumin 2.3 L Medications Medication Current Medications Vancomycin HCl (Vanco Iv Per Pharmacy) VANCOMYCIN PER PHARMACY PER PROTOCOL XX ; Start 01/13/19 at 02:00 IV Flush (NS 3 ml) 3 ml PER PROTOCOL IV ; Start 01/13/19 at 02:00 Acetaminophen (Tylenol Tab) 650 mg Q6H PRN PO .PAIN 1-3 OR TEMP Last admin istered on 01/18/19 08:28; Admin Dose 650 MG; Start 01/13/19 at 02:00 Acetaminophen/ Hydrocodone Bitart ([place] (5/325)) 1 tab Q6H PRN PO .PAIN 4-6 Last administered on 01/15/19 13:40; Admin Dose 1 TAB; Start 01/13/19 at 02:00 Docusate Sodium (Colace) 100 mg Q12H PRN PO .CONSTIPATION Last administered on 01/21/19 13:52; Admin Dose 100 MG; Start 01/13/19 at 02:00 Bisacodyl (Dulcolax) 5 mg DAILY PRN PO .CONSTIPATION Last administered on 01/21/19 13:52; Admin Dose 5 MG; Start 01/13/19 at 02:00 Atorvastatin Calcium (Lipitor) 40 mg DAILY@21 PO Last administered on 01/21/19 20:25; Admin Dose 40 MG; Start 01/13/19 at 21:00 Ferrous Sulfate (Ferrous Sulfate (Ec)) 325 mg BID PO Last administered on 01/22/19 08:17; Admin Dose 325 MG; Start 01/13/19 at 09:00 Folic Acid (Folic Acid) 1 mg DAILY PO Last administered on 01/22/19 08:17; Admin Dose 1 MG; Start 01/13/19 at 09:00 Insulin Glargine (Lantus) 20 units QHS SC Last administered on 01/14/19 22:04; Admin Dose 20 UNITS; Start 01/13/19 at 21:00; Status Hold Aspirin (Aspirin) 81 mg DAILY PO Last administered on 01/22/19 08:32; Admin Dose 81 MG; Start 01/13/19 at 11:00 Miscellaneous Information 1 ea NOTE XX ; Start 01/13/19 at 15:30 Glucose (Glutose) 15 gm Q15M PRN PO DECREASED GLUCOSE; Start 01/13/19 at 15:30 Glucose (Glutose) 22.5 gm Q15M PRN PO DECREASED GLUCOSE; Start 01/13/19 at 15:30 Dextrose (D50w Syringe) 25 ml Q15M PRN IV DECREASED GLUCOSE; Start 01/13/19 at 15:30 Dextrose (D50w Syringe) 50 ml Q15M PRN IV DECREASED GLUCOSE; Start 01/13/19 at 15:30 Glucagon (Glucagen) 1 mg Q15M PRN IM DECREASED GLUCOSE; Start 01/13/19 at 15:30 Glucose (Glutose) 15 gm Q15M PRN BUCCAL DECREASED GLUCOSE; Start 01/13/19 at 15:30 Epoetin Cam-epbx (Retacrit (Esrd)) 4,000 unit TuThSa@1700 SC Last administered on 01/21/19 17:34; Admin Dose 4,000 UNIT; Start 01/14/19 at 17:00 Levalbuterol (Xopenex Neb) 1.25 mg Q4H RESP THERAPY PRN HHN dyspnea; Start 01/14/19 at 19:00 Fentanyl 100 ml @ 5 mls/hr TITRATE IV Last administered on 01/18/19at 21:11; Admin Dose 5 MLS/HR; Start 01/15/19 at 17:30 Norepinephrine 250 ml @ 1.875 mls/ hr TITRATE IV Last administered on 01/22/19 08:40; Admin Dose 1.875 MLS/HR; Start 01/15/19 at 17:30 Insulin Aspart (Novolog Insulin Pen) NOVOLOG *MILD* ALGORITHM Q4 SC Last administered on 01/22/19 08:20; Admin Dose 1 UNIT; Start 01/15/19 at 17:55 Ipratropium [place] (Atrovent Hfa) 4 puff Q6H RESP THERAPY INH Last administered on 01/22/19at 01:37; Admin Dose 4 PUFF; Start 01/15/19 at 20:00 Famotidine (Pepcid Iv) 20 mg Q24H IV Last administered on 01/22/19 05:16; Admin Dose 20 MG; Start 01/16/19 at 06:00 Propofol 100 ml @ 2.46 mls/hr Q12H IV Last administered on 01/18/19at 00:27; Admin Dose 9.84 MLS/HR; Start 01/15/19 at 23:00 Vasopressin 60 unit/Dextrose 60 ml @ 1.2 mls/hr Q12H IV Last administered on 01/18/19 05:05; Admin Dose 2.4 MLS/HR; Start 01/16/19 at 02:30 Phenylephrine HCl 250 ml @ 75 mls/hr TITRATE IV ; Start 01/16/19 at 10:30 Caspofungin 35 mg/ Sodium Chloride 250 ml @ 250 mls/hr Q24H IVPB Last administered on 01/21/19 15:15; Admin Dose 250 MLS/HR; Start 01/17/19 at 15:00 Docusate Sodium (Colace Liquid Cup) 100 mg BID NGT Last administered on 01/22/19 08:17; Admin Dose 100 MG; Start 01/17/19 at 21:00 Collagenase (Santyl) 1 applic BID TOP Last administered on 01/22/19 08:18; Admin Dose 1 APPLIC; Start 01/17/19 at 21:00 Dexmedetomidine HCl 200 mcg/ Sodium Chloride 50 ml @ 4.1 mls/hr TITRATE IV Last administered on 01/19/19 06:46; Admin Dose 4.1 MLS/HR; Start 01/18/19 at 08:00 Albumin Human 100 ml @ 100 mls/hr DURING DIALYSIS PRN IV BLOOD PRESSURE SUPPORT Last administered on 01/20/19 23:33; Admin Dose 100 MLS/HR; Start 01/18/19 at 11:30 Lactulose (Enulose) 20 gm BID PO Last administered on 01/22/19 08:32; Admin Dose 20 GM; Start 01/19/19 at 21:00 Metoclopramide HCl (Reglan) 5 mg Q6 IV Last administered on 01/22/19 08:18; Admin Dose 5 MG; Start 01/19/19 at 20:00 Amiodarone HCl 900 mg/Dextrose 500 ml @ 0 mls/hr Q0M IV Last administered on 01/21/19 02:54; Admin Dose 33.3 MLS/HR; Start 01/21/19 at 03:00 Heparin Sodium (Porcine) (Heparin (5000 Units/1ml)) 5,000 unit BID SC Last administered on 01/21/19 09:57; Admin Dose 5,000 UNIT; Start 01/21/19 at 09:00; Status Hold Vancomycin HCl 1.25 gm/Sodium Chloride 250 ml @ 83.333 mls/ hr Q96H IVPB Last administered on 6/8/19at 17:32; Admin Dose 83.333 MLS/HR; Start 01/21/19 at 18:00 Amikacin Sulfate (Amikacin Iv Per Pharmacy) AMIKACIN PER PHARMACY NOTE XX ; Start 01/21/19 at 11:30 Metronidazole 100 ml @ 100 mls/hr Q8 IVPB Last administered on 01/22/19at 05:16; Admin Dose 100 MLS/HR; Start 01/21/19 at 14:00 Amikacin Sulfate 375 mg/Sodium Chloride 101.5 ml @ 101.5 mls/ hr AFTER DIALYSIS IVPB ; Start 01/22/19 at 09:00 JO ANN LOPEZ NP Jan 22, 2019 13:09
--- NOTE | 2019-01-22 13:17 | CONS ---
Assessment/Plan Assessment/Plan Hospital Course (Demo Recall) 1. End-stage renal disease on hemodialysis. hemodialysis Wednesday, and Wednesday via left arm AV fistula 2. Septic shock , likely secondary to pneumonia/ cholecystitis. with elevated bilirubin , cx positive for yeast 3. Elevated trop 4. Hypokalemia, resolved. 5. Leukocytosis. 6. Shortness of breath, cough, weakness, leukocytosis of 26.8, likely secondary to pneumonia. with hypoxic and hypercapnic resp failure 7. Hyperbilirubinemia, abnormal liver function tests. 8. respiratory failure, likely secondary to pneumonia. 9. Hypertension, currently hypotensive 10. Dyslipidemia. 11. Diabetes. 12. Anemia chronic disease 13. encephalopathy, ALOC 14 Respiratory failure s/p intubation 15 New onset AFIB 16 Abnormal LFT with elevated Bili/direct/alk phos and elevation of transaminases ? r/o obstruction Assessment/Plan (Daily) -intubated -cw HD if BP permits -albumin prn HD -c w Epogen Consultation Date/Type/Reason Admit Date/Time January 13, 2019 at 00:07 Initial Consult Date 01/13/2019 Type of Consult nephrology Date/Time of Note DATE: 01/22/19 TIME: 13:17 24 HR Interval Summary Subjective hx not possible: pt non-verbal Exam/Review of Systems Exam Vitals Vital Signs Date Temp Pulse Resp B/P (MAP) Pulse Ox O2 O2 Flow FiO2 Time Delivery Rate 01/22/19 117 12:00 01/22/19 24 96/46 (63) 96 Mechanical 11:30 Ventilator 01/22/19 45 08:00 01/22/19 99.9 08:00 Intake and Output 01/21/19 01/21/19 01/22/19 1515:00 23:00 07:00 IntakeIntake Total 642.250 ml 839.705 ml 467.60 ml OutputOutput Total 0 ml 0 ml BalanceBalance 642.250 ml 839.705 ml 467.60 ml Exam left av fistula Constitutional: non-verbal ENMT: intubated Neck: supple Respiratory: diminished breath sounds Cardiovascular: regular rate and rhythm Gastrointestinal: soft Results Result Diagram: 01/22/19 0430 01/22/19 0430 Results 24hrs Laboratory Tests Test 01/21/19 13:58 01/21/19 17:29 01/21/19 20:32 01/22/19 00:21 Bedside Glucose 149 130 133 133 Test 01/22/19 04:21 01/22/19 04:30 01/22/19 08:16 01/22/19 13:05 Bedside Glucose 130 144 140 White Blood Count 21.4 H Red Blood Count 2.77 L Hemoglobin 8.8 L Hematocrit 27.6 L Mean Corpuscular Volume 99.6 Mean Corpuscular 31.8 Hemoglobin Mean Corpuscular 31.9 L Hemoglobin Concent Red Cell Distribution 18.1 H Width Platelet Count 100 #L Mean Platelet Volume 12.4 H Immature Granulocytes % 1.300 H Neutrophils % Segmented Neutrophils 82 H % (Manual) Band Neutrophils % 2 (Manual) Lymphocytes % Lymphocytes % (Manual) 11 L Monocytes % Monocytes % (Manual) 3 Eosinophils % Eosinophils % (Manual) 2 Basophils % Nucleated Red Blood 0.2 H Cells % Immature Granulocytes # 0.270 H Neutrophils # Neutrophils # (Manual) 17.6 H Band Neutrophils # 0.4 Lymphocytes (Manual) 2.3 Lymphocytes # Monocytes # Monocytes # (Manual) 0.6 Eosinophils # Basophils # Nucleated Red Blood Cells # Platelet Estimate DECREASED Giant Platelets 1 H Polychromasia 3+ Poikilocytosis 3+ Anisocytosis 3+ Microcytosis 3+ Macrocytosis 1+ Sodium Level 141 Potassium Level 4.1 Chloride Level 106 Carbon Dioxide Level 24 Anion Gap 11 Blood Urea Nitrogen 25 H Creatinine 3.88 #H Est Glomerular Filtrat Rate mL/min Glucose Level 142 Calcium Level 8.5 Total Bilirubin 6.1 H Direct Bilirubin 5.30 H Indirect Bilirubin 0.8 Aspartate Amino 139 H Transf (AST/SGOT) Alanine 32 Aminotransferase (ALT/SG PT) Alkaline Phosphatase 189 H Total Protein 5.1 L Albumin 2.3 L Medications Medication Current Medications Vancomycin HCl (Vanco Iv Per Pharmacy) VANCOMYCIN PER PHARMACY PER PROTOCOL XX ; Start 01/13/19 at 02:00 IV Flush (NS 3 ml) 3 ml PER PROTOCOL IV ; Start 01/13/19 at 02:00 Acetaminophen (Tylenol Tab) 650 mg Q6H PRN PO .PAIN 1-3 OR TEMP Last administered on 01/18/19at 08:28; Admin Dose 650 MG; Start 01/13/19 at 02:00 Acetaminophen/ Hydrocodone Bitart ([place] (5/325)) 1 tab Q6H PRN PO .PAIN 4-6 Last administered on 01/15/19 13:40; Admin Dose 1 TAB; Start 01/13/19 at 02:00 Docusate Sodium (Colace) 100 mg Q12H PRN PO .CONSTIPATION Last administered on 01/21/19 13:52; Admin Dose 100 MG; Start 01/13/19 at 02:00 Bisacodyl (Dulcolax) 5 mg DAILY PRN PO .CONSTIPATION Last administered on 01/21/19 13:52; Admin Dose 5 MG; Start 01/13/19 at 02:00 Atorvastatin Calcium (Lipitor) 40 mg DAILY@21 PO Last administered on 01/21/19 20:25; Admin Dose 40 MG; Start 01/13/19 at 21:00 Ferrous Sulfate (Ferrous Sulfate (Ec)) 325 mg BID PO Last administered on 01/22/19 08:17; Admin Dose 325 MG; Start 01/13/19 at 09:00 Folic Acid (Folic Acid) 1 mg DAILY PO Last administered on 01/22/19 08:17; Admin Dose 1 MG; Start 01/13/19 at 09:00 Insulin Glargine (Lantus) 20 units QHS SC Last administered on 01/14/19 22:04; Admin Dose 20 UNITS; Start 01/13/19 at 21:00; Status Hold Aspirin (Aspirin) 81 mg DAILY PO Last administered on 01/22/19 08:32; Admin D ose 81 MG; Start 01/13/19 at 11:00 Miscellaneous Information 1 ea NOTE XX ; Start 01/13/19 at 15:30 Glucose (Glutose) 15 gm Q15M PRN PO DECREASED GLUCOSE; Start 01/13/19 at 15:30 Glucose (Glutose) 22.5 gm Q15M PRN PO DECREASED GLUCOSE; Start 01/13/19 at 15:30 Dextrose (D50w Syringe) 25 ml Q15M PRN IV DECREASED GLUCOSE; Start 01/13/19 at 15:30 Dextrose (D50w Syringe) 50 ml Q15M PRN IV DECREASED GLUCOSE; Start 01/13/19 at 15:30 Glucagon (Glucagen) 1 mg Q15M PRN IM DECREASED GLUCOSE; Start 01/13/19 at 15:30 Glucose (Glutose) 15 gm Q15M PRN BUCCAL DECREASED GLUCOSE; Start 01/13/19 at 15:30 Epoetin Cam-epbx (Retacrit (Esrd)) 4,000 unit TuThSa@1700 SC Last administered on 01/21/19 17:34; Admin Dose 4,000 UNIT; Start 01/14/19 at 17:00 Levalbuterol (Xopenex Neb) 1.25 mg Q4H RESP THERAPY PRN HHN dyspnea; Start 01/14/19 at 19:00 Fentanyl 100 ml @ 5 mls/hr TITRATE IV Last administered on 01/18/19 21:11; Admin Dose 5 MLS/HR; Start 01/15/19 at 17:30 Norepinephrine 250 ml @ 1.875 mls/ hr TITRATE IV Last administered on 01/22/19 13:10; Admin Dose 37.5 MLS/HR; Start 01/15/19 at 17:30 Insulin Aspart (Novolog Insulin Pen) NOVOLOG *MILD* ALGORITHM Q4 SC Last administered on 01/22/19 08:20; Admin Dose 1 UNIT; Start 01/15/19 at 17:55 Ipratropium [place] (Atrovent Hfa) 4 puff Q6H RESP THERAPY INH Last administered on 01/22/19 01:37; Admin Dose 4 PUFF; Start 01/15/19 at 20:00 Famotidine (Pepcid Iv) 20 mg Q24H IV Last administered on 01/22/19 05:16; Admin Dose 20 MG; Start 01/16/19 at 06:00 Propofol 100 ml @ 2.46 mls/hr Q12H IV Last administered on 01/18/19at 00:27; Admin Dose 9.84 MLS/HR; Start 01/15/19 at 23:00 Vasopressin 60 unit/Dextrose 60 ml @ 1.2 mls/hr Q12H IV Last administered on 01/18/19 05:05; Admin Dose 2.4 MLS/HR; Start 01/16/19 at 02:30 Phenylephrine HCl 250 ml @ 75 mls/hr TITRATE IV ; Start 01/16/19 at 10:30 Caspofungin 35 mg/ Sodium Chloride 250 ml @ 250 mls/hr Q24H IVPB Last administered on 01/21/19at 15:15; Admin Dose 250 MLS/HR; Start 01/17/19 at 15:00 Docusate Sodium (Colace Liquid Cup) 100 mg BID NGT Last administered on 01/22/19 08:17; Admin Dose 100 MG; Start 01/17/19 at 21:00 Collagenase (Santyl) 1 applic BID TOP Last administered on 01/22/19 08:18; Adm in Dose 1 APPLIC; Start 01/17/19 at 21:00 Dexmedetomidine HCl 200 mcg/ Sodium Chloride 50 ml @ 4.1 mls/hr TITRATE IV Last administered on 01/19/19 06:46; Admin Dose 4.1 MLS/HR; Start 01/18/19 at 08:00 Albumin Human 100 ml @ 100 mls/hr DURING DIALYSIS PRN IV BLOOD PRESSURE SUPPORT Last administered on 01/20/19 23:33; Admin Dose 100 MLS/HR; Start 01/18/19 at 11:30 Lactulose (Enulose) 20 gm BID PO Last administered on 01/22/19 08:32; Admin Dose 20 GM; Start 01/19/19 at 21:00 Metoclopramide HCl (Reglan) 5 mg Q6 IV Last administered on 01/22/19 08:18; Admin Dose 5 MG; Start 01/19/19 at 20:00 Amiodarone HCl 900 mg/Dextrose 500 ml @ 0 mls/hr Q0M IV Last administered on 01/21/19 02:54; Admin Dose 33.3 MLS/HR; Start 01/21/19 at 03:00 Heparin Sodium (Porcine) (Heparin (5000 Units/1ml)) 5,000 unit BID SC Last administered on 01/21/19 09:57; Admin Dose 5,000 UNIT; Start 01/21/19 at 09:00; Status Hold Vancomycin HCl 1.25 gm/Sodium Chloride 250 ml @ 83.333 mls/ hr Q96H IVPB Last administered on 01/21/19 17:32; Admin Dose 83.333 MLS/HR; Start 01/21/19 at 18:00 Amikacin Sulfate (Amikacin Iv Per Pharmacy) AMIKACIN PER PHARMACY NOTE XX ; Start 01/21/19 at 11:30 Metronidazole 100 ml @ 100 mls/hr Q8 IVPB Last administered on 01/22/19 13:06; Admin Dose 100 MLS/HR; Start 01/21/19 at 14:00 Amikacin Sulfate 375 mg/Sodium Chloride 101.5 ml @ 101.5 mls/ hr AFTER DIALYSIS IVPB ; Start 01/22/19 at 09:00 IVONNE BHAT Jan 22, 2019 13:17
[2019-01-22] MEDS: CASPOFUNGIN 35 MG in SOD CHLORIDE 0.9% 250 ML IVPB SCH (16:40)
[2019-01-22] MEDS: PHENYLephrine 20MG IN 250 ML 250 ML IV SCH (19:55)
[2019-01-22] MEDS: ATORVASTATIN 40 MG TAB PO SCH (20:41)
[2019-01-23] VITALS (104 sets, daily range): BP systolic 69–139; BP diastolic 29–65; PULSE 101–136; RESP 17–35
[2019-01-23] MEDS: INSULIN ASPART [NOVOLOG] 3 ML PEN SC SCH ×6 (01:00→20:30)
[2019-01-23] MEDS: METOCLOPRAMIDE 10 MG INJ IV SCH ×5 (01:39→23:31)
[2019-01-23] MEDS: IPRATROPIUM (HFA) 12.9 GM INHALER INH SCH ×4 (01:41→19:37)
[2019-01-23] MEDS: VASOPRESSIN 60 UNIT in DEXTROSE 5% 57 ML IV SCH ×3 (02:30→20:58)
[2019-01-23] MEDS: PHENYLephrine 20MG IN 250 ML 250 ML IV SCH ×3 (02:33→08:12)
[2019-01-23] MEDS: NORepinephrine 8MG/250 ML (PMX 250 ML IV SCH (04:16)
[2019-01-23] MEDS: metroNIDAZOLE 500 MG/NS (PMX) 100 ML IVPB SCH ×3 (06:04→22:07)
[2019-01-23] MEDS: FAMOTIDINE 20 MG INJ IV SCH (06:04)
--- NOTE | 2019-01-23 07:33 | CONS ---
Assessment/Plan Assessment/Plan Assessment/Plan (Daily) Assessment Shock, likely secondary to sepsis Paroxysmal afib Vent dependent respiratory failure Sepsis secondary to pneumonia CAD with history of CABG End-stage renal disease on hemodialysis Diabetes Hypertension Dyslipidemia Plan: Abx Rate control Consultation Date/Type/Reason Admit Date/Time January 13, 2019 at 00:07 Initial Consult Date 01/17/19 Type of Consult Cardiology Date/Time of Note DATE: 01/23/19 TIME: 07:32 24 HR Interval Summary Subjective hx not possible: pt non-verbal, pt critical status Exam/Review of Systems Vital Signs Vitals Vital Signs Date Temp Pulse Resp B/P (MAP) Pulse Ox O2 O2 Flow FiO2 Time Delivery Rate 01/23/19 118 21 92/39 (56) 93 Mechanical 07:00 Ventilator 01/23/19 45 05:20 01/23/19 98.3 04:00 Intake and Output 01/22/19 01/22/19 01/23/19 1515:00 23:00 07:00 IntakeIntake Total 400.000 ml 524.150 ml 891.865 ml OutputOutput Total 0 ml 0 ml BalanceBalance 400.000 ml 524.150 ml 891.865 ml Exam Constitutional: non-verbal Labs Result Diagram: 01/23/19 0430 01/23/19 0430 Results 24hrs Laboratory Tests Test 01/22/19 08:16 01/22/19 13:05 01/22/19 16:41 01/22/19 20:40 Bedside Glucose 144 140 138 122 Test 01/23/19 01:35 01/23/19 04:30 01/23/19 04:39 Bedside Glucose 127 160 White Blood Count 20.7 H Red Blood Count 2.79 L Hemoglobin 8.7 L Hematocrit 27.7 L Mean Corpuscular 99.3 Volume Mean Corpuscular 31.2 Hemoglobin Mean Corpuscular 31.4 L Hemoglobin Concent Red Cell Distribution 18.3 H Width Platelet Count 106 L Mean Platelet Volume 12.8 H Immature Granulocytes 1.400 H % Neutrophils % Lymphocytes % Monocytes % Eosinophils % Basophils % Nucleated Red Blood 0.3 H Cells % Immature Granulocytes 0.280 H # Neutrophils # Lymphocytes # Monocytes # Eosinophils # Basophils # Nucleated Red Blood Cells # Sodium Level Pending Potassium Level 4.6 Chloride Level 109 Carbon Dioxide Level 21 Anion Gap Pending Blood Urea Nitrogen 31 H Creatinine 4.48 H Est Glomerular Filtrat Rate mL/min Glucose Level 119 Calcium Level 8.0 L Total Bilirubin 5.6 H Direct Bilirubin 4.90 H Indirect Bilirubin 0.7 Aspartate Amino 135 H Transf (AST/SGOT) Alanine 31 Aminotransferase (ALT /SGPT) Alkaline Phosphatase 173 H Total Protein 5.0 L Albumin 2.0 L Medications Medications Current Medications Vancomycin HCl (Vanco Iv Per Pharmacy) VANCOMYCIN PER PHARMACY PER PROTOCOL XX ; Start 01/13/19 at 02:00 IV Flush (NS 3 ml) 3 ml PER PROTOCOL IV ; Start 01/13/19 at 02:00 Acetaminophen (Tylenol Tab) 650 mg Q6H PRN PO .PAIN 1-3 OR TEMP Last administered on 01/18/19 08:28; Admin Dose 650 MG; Start 01/13/19 at 02:00 Acetaminophen/ Hydrocodone Bitart ([place] (5/325)) 1 tab Q6H PRN PO .PAIN 4-6 Last administered on 01/15/19 13:40; Admin Dose 1 TAB; Start 01/13/19 at 02:00 Docusate Sodium (Colace) 100 mg Q12H PRN PO .CONSTIPATION Last administered on 01/21/19 13:52; Admin Dose 100 MG; Start 01/13/19 at 02:00 Bisacodyl (Dulcolax) 5 mg DAILY PRN PO .CONSTIPATION Last administered on 01/21/19 13:52; Admin Dose 5 MG; Start 01/13/19 at 02:00 Atorvastatin Calcium (Lipitor) 40 mg DAILY@21 PO Last administered on 01/22/19 20:41; Admin Dose 40 MG; Start 01/13/19 at 21:00 Ferrous Sulfate (Ferrous Sulfate (Ec)) 325 mg BID PO Last administered on 01/22/19 20:41; Admin Dose 325 MG; Start 01/13/19 at 09:00 Folic Acid (Folic Acid) 1 mg DAILY PO Last administered on 01/22/19 08:17; Admin Dose 1 MG; Start 01/13/19 at 09:00 Insulin Glargine (Lantus) 20 units QHS SC Last administered on 01/14/19 22:04; Admin Dose 20 UNITS; Start 01/13/19 at 21:00; Status Hold Aspirin (Aspirin) 81 mg DAILY PO Last administered on 01/22/19at 08:32; Admin Dose 81 MG; Start 01/13/19 at 11:00 Miscellaneous Information 1 ea NOTE XX ; Start 01/13/19 at 15:30 Glucose (Glutose) 15 gm Q15M PRN PO DECREASED GLUCOSE; Start 01/13/19 at 15:30 Glucose (Glutose) 22.5 gm Q15M PRN PO DECREASED GLUCOSE; Start 01/13/19 at 15:30 Dextrose (D50w Syringe) 25 ml Q15M PRN IV DECREASED GLUCOSE; Start 01/13/19 at 15:30 Dextrose (D50w Syringe) 50 ml Q15M PRN IV DECREASED GLUCOSE; Start 01/13/19 at 15:30 Glucagon (Glucagen) 1 mg Q15M PRN IM DECREASED GLUCOSE; Start 01/13/19 at 15:30 Glucose (Glutose) 15 gm Q15M PRN BUCCAL DECREASED GLUCOSE; Start 01/13/19 at 15:30 Epoetin Cam-epbx (Retacrit (Esrd)) 4,000 unit TuThSa@1700 SC Last administered on 01/21/19at 17:34; Admin Dose 4,000 UNIT; Start 01/14/19 at 17:00 Levalbuterol (Xopenex Neb) 1.25 mg Q4H RESP THERAPY PRN HHN dyspnea; Start 01/14/19 at 19:00 Fentanyl 100 ml @ 5 mls/hr TITRATE IV Last administered on 01/18/19at 21:11; Admin Dose 5 MLS/HR; Start 01/15/19 at 17:30 Norepinephrine 250 ml @ 1.875 mls/ hr TITRATE IV Last administered on 01/23/19at 04:16; Admin Dose 37.5 MLS/HR; Start 01/15/19 at 17:30 Insulin Aspart (Novolog Insulin Pen) NOVOLOG *MILD* ALGORITHM Q4 SC Last administered on 01/22/19at 08:20; Admin Dose 1 UNIT; Start 01/15/19 at 17:55 Ipratropium [place] (Atrovent Hfa) 4 puff Q6H RESP THERAPY INH Last administered on 01/23/19at 01:41; Admin Dose 4 PUFF; Start 01/15/19 at 20:00 Famotidine (Pepcid Iv) 20 mg Q24H IV Last administered on 01/23/19 06:04; Admin Dose 20 MG; Start 01/16/19 at 06:00 Propofol 100 ml @ 2.46 mls/hr Q12H IV Last administered on 01/18/19 00:27; Admin Dose 9.84 MLS/HR; Start 01/15/19 at 23:00 Vasopressin 60 unit/Dextrose 60 ml @ 1.2 mls/hr Q12H IV Last administered on 01/18/19 05:05; Admin Dose 2.4 MLS/HR; Start 01/16/19 at 02:30 Phenylephrine HCl 250 ml @ 75 mls/hr TITRATE IV Last administered on 01/23/19 06:04; Admin Dose 90 MLS/HR; Start 01/16/19 at 10:30 Caspofungin 35 mg/ Sodium Chloride 250 ml @ 250 mls/hr Q24H IVPB Last administered on 01/22/19 16:40; Admin Dose 250 MLS/HR; Start 01/17/19 at 15:00 Docusate Sodium (Colace Liquid Cup) 100 mg BID NGT Last administered on 01/22/19 20:41; Admin Dose 100 MG; Start 01/17/19 at 21:00 Collagenase (Santyl) 1 applic BID TOP Last administered on 01/22/19 20:41; Admin Dose 1 APPLIC; Start 01/17/19 at 21:00 Dexmedetomidine HCl 200 mcg/ Sodium Chloride 50 ml @ 4.1 mls/hr TITRATE IV Last administered on 01/19/19 06:46; Admin Dose 4.1 MLS/HR; Start 01/18/19 at 08:00 Albumin Human 100 ml @ 100 mls/hr DURING DIALYSIS PRN IV BLOOD PRESSURE SUPPORT Last administered on 01/20/19 23:33; Admin Dose 100 MLS/HR; Start 01/18/19 at 11:30 Lactulose (Enulose) 20 gm BID PO Last administered on 01/22/19 20:41; Admin Dose 20 GM; Start 01/19/19 at 21:00 Metoclopramide HCl (Reglan) 5 mg Q6 IV Last administered on 01/23/19 06:04; Admin Dose 5 MG; Start 01/19/19 at 20:00 Amiodarone HCl 900 mg/Dextrose 500 ml @ 0 mls/hr Q0M IV Last administered on 01/21/19at 02:54; Admin Dose 33.3 MLS/HR; Start 01/21/19 at 03:00 Heparin Sodium (Porcine) (Heparin (5000 Units/1ml)) 5,000 unit BID SC Last administered on 01/21/19at 09:57; Admin Dose 5,000 UNIT; Start 01/21/19 at 09:00; Status Hold Vancomycin HCl 1.25 gm/Sodium Chloride 250 ml @ 83.333 mls/ hr Q96H IVPB Last administered on 01/21/19at 17:32; Admin Dose 83.333 MLS/HR; Start 01/21/19 at 18:00 Amikacin Sulfate (Amikacin Iv Per Pharmacy) AMIKACIN PER PHARMACY NOTE XX ; Start 01/21/19 at 11:30 Metronidazole 100 ml @ 100 mls/hr Q8 IVPB Last administered on 01/23/19at 06:04; Admin Dose 100 MLS/HR; Start 01/21/19 at 14:00 Amikacin Sulfate 375 mg/Sodium Chloride 101.5 ml @ 101.5 mls/ hr AFTER DIALYSIS IVPB ; Start 01/22/19 at 09:00 JOSH VARGAS MD Jan 23, 2019 07:33
[2019-01-23] MEDS: LACTULOSE 30ML CUP PO SCH ×2 (09:08→20:28)
[2019-01-23] MEDS: DOCUSATE SODIUM 10 MG/ML (10ML CUP) NGT SCH ×2 (09:08→20:28)
[2019-01-23] MEDS: ASPIRIN 81 MG TAB PO SCH (09:08)
[2019-01-23] MEDS: FOLIC ACID 1 MG TAB PO SCH (09:08)
[2019-01-23] MEDS: COLLAGENASE 5 GM (UD JAR) TOP SCH ×2 (09:09→20:28)
--- NOTE | 2019-01-23 09:09 | CONS ---
Assessment/Plan Assessment/Plan Hospital Course (Demo Recall) Chest x-ray showing bilateral pneumonia. Ventilator setting; AC of 20, tidal volume 500, PEEP of 5, 40% FiO2. Patient is currently on fentanyl 25 mics per hour, Precedex drip as well. Assessment and recommendations; 1. Patient admitted with severe bilateral pneumonia still requiring full me chanical ventilatory support. 2. Some element of encephalopathy. Patient however currently is sedated. 3. History of prior CABG. 4. Anemia and severe thrombocytopenia. 5. Chronic renal failure, dialysis dependent. 6. History of cardiac arrhythmia. 7. History of hypertension and diabetes. Hold further sedation to assess mental status. Continue current supportive care. Hemodialysis per mammalogy teacher. Prognosis is guarded at this point. 35 minutes of critical care time was spent evaluating the patient. Assessment/Plan (Daily) Chest x-ray showing diffuse bilateral pneumonia. With superimposed pulmonary edema. Ventilator setting; AC of 20, tidal volume 500, PEEP of 5, 45% FiO2. Patient is currently on phenylephrine drip at 140 mics per minute, Levophed 15 mics per minute. Assessment and recommendations; 1. Patient admitted with severe bilateral pneumonia leading to respiratory failure requiring intubation without any significant interval improvement. 2. Chronic renal failure, dialysis dependent. 3. CHF. 4. Possibly COPD. 5. Prior CABG. 6. Anemia and thrombocytopenia. 7. Chronic atrial fibrillation. 8. Diabetes. 9. Persistent shock with interval worsening. Continue current supportive care. Prognosis appears very poor now. Further recommendations per mammalogy teacher. Because of severe hypotension, patient likely would not tolerate dialysis well. 35 minutes of critical care time was spent evaluating the patient. Consultation Date/Type/Reason Admit Date/Time January 13, 2019 at 00:07 Initial Consult Date 01/17/19 Type of Consult Pulmonary/critical care Patient's condition is critical. Patient is currently sedated. Patient however has remained hemodynamically stable. General exam; elderly male, orally intubated, sedated, currently in no distress. Date/Time of Note DATE: 01/23/19 TIME: 09:06 24 HR Interval Summary Free Text/Dictation Patient's condition is critical. Remains hypotensive on multiple pressor agents. Patient however mentally is improving and is more awake now. General exam; elderly male, orally intubated, awake and somewhat responsive. Currently in no distress. Exam/Review of Systems Exam Vitals Vital Signs Date Temp Pulse Resp B/P (MAP) Pulse Ox O2 O2 Flow FiO2 Time Delivery Rate 01/23/19 118 24 100 45 07:42 01/23/19 92/39 (56) Mechanical 07:00 Ventilator 01/23/19 98.3 04:00 Intake and Output 01/22/19 01/22/19 01/23/19 1515:00 23:00 07:00 IntakeIntake Total 400.000 ml 524.150 ml 891.865 ml OutputOutput Total 0 ml 0 ml BalanceBalance 400.000 ml 524.150 ml 891.865 ml Exam H EENT exam; supple neck, positive JVD. Orally intubated. Patient has fair dentition. Pupils are small bilaterally. No neck masses. Chest exam; diminished breath sounds bilaterally. S1-S2 audible, no murmurs. There is a well-healed sternal scar. Irregular rhythm. Tachycardic. Abdomen exam; soft, mildly protuberant. No organomegaly. Bowel sounds are audible. Extremity exam; trace edema. SENIOR INTERACTION DESIGNER exam; patient is awake and somewhat responsive. Results Result Diagram: 01/23/19 0430 01/23/19 0430 Results 24hrs Laboratory Tests Test 01/22/19 13:05 01/22/19 16:41 01/22/19 20:40 01/23/19 01:35 Bedside Glucose 140 138 122 127 Test 01/23/19 04:30 01/23/19 04:39 White Blood Count 20.7 H Red Blood Count 2.79 L Hemoglobin 8.7 L Hematocrit 27.7 L Mean Corpuscular 99.3 Volume Mean Corpuscular 31.2 Hemoglobin Mean Corpuscular 31.4 L Hemoglobin Concent Red Cell Distribution 18.3 H Width Platelet Count 106 L Mean Platelet Volume 12.8 H Immature Granulocytes 1.400 H % Neutrophils % Lymphocytes % Monocytes % Eosinophils % Basophils % Nucleated Red Blood 0.3 H Cells % Immature Granulocytes 0.280 H # Neutrophils # Lymphocytes # Monocytes # Eosinophils # Basophils # Nucleated Red Blood Cells # Sodium Level 141 Potassium Level 4.6 Chloride Level 109 Carbon Dioxide Level 21 Anion Gap 11 Blood Urea Nitrogen 31 H Creatinine 4.48 H Est Glomerular Filtrat Rate mL/min Glucose Level 119 Calcium Level 8.0 L Total Bilirubin 5.6 H Direct Bilirubin 4.90 H Indirect Bilirubin 0.7 Aspartate Amino 135 H Transf (AST/SGOT) Alanine 31 Aminotransferase (ALT /SGPT) Alkaline Phosphatase 173 H Total Protein 5.0 L Albumin 2.0 L Bedside Glucose 160 Medications Medication Current Medications Vancomycin HCl (Vanco Iv Per Pharmacy) VANCOMYCIN PER PHARMACY PER PROTOCOL XX ; Start 01/13/19 at 02:00 IV Flush (NS 3 ml) 3 ml PER PROTOCOL IV ; Start 01/13/19 at 02:00 Acetaminophen (Tylenol Tab) 650 mg Q6H PRN PO .PAIN 1-3 OR TEMP Last administered on 01/18/19 08:28; Admin Dose 650 MG; Start 01/13/19 at 02:00 Acetaminophen/ Hydrocodone Bitart ([place] (5/325)) 1 tab Q6H PRN PO .PAIN 4-6 Last administered on 01/15/19 13:40; Admin Dose 1 TAB; Start 01/13/19 at 02:00 Docusate Sodium (Colace) 100 mg Q12H PRN PO .CONSTIPATION Last administered on 01/21/19 13:52; Admin Dose 100 MG; Start 01/13/19 at 02:00 Bisacodyl (Dulcolax) 5 mg DAILY PRN PO .CONSTIPATION Last administered on 01/21/19 13:52; Admin Dose 5 MG; Start 01/13/19 at 02:00 Atorvastatin Calcium (Lipitor) 40 mg DAILY@21 PO Last administered on 01/22/19 20:41; Admin Dose 40 MG; Start 01/13/19 at 21:00 Ferrous Sulfate (Ferrous Sulfate (Ec)) 325 mg BID PO Last administered on 01/22/19 20:41; Admin Dose 325 MG; Start 01/13/19 at 09:00 Folic Acid (Folic Acid) 1 mg DAILY PO Last administered on 01/22/19 08:17; Admin Dose 1 MG; Start 01/13/19 at 09:00 Insulin Glargine (Lantus) 20 units QHS SC Last administered on 01/14/19 22:04; Admin Dose 20 UNITS; Start 01/13/19 at 21:00; Status Hold Aspirin (Aspirin) 81 mg DAILY PO Last administered on 01/22/19 08:32; Admin Dose 81 MG; Start 01/13/19 at 11:00 Miscellaneous Information 1 ea NOTE XX ; Start 01/13/19 at 15:30 Glucose (Glutose) 15 gm Q15M PRN PO DECREASED GLUCOSE; Start 01/13/19 at 15:30 Glucose (Glutose) 22.5 gm Q15M PRN PO DECREASED GLUCOSE; Start 01/13/19 at 15:30 Dextrose (D50w Syringe) 25 ml Q15M PRN IV DECREASED GLUCOSE; Start 01/13/19 at 15:30 Dextrose (D50w Syringe) 50 ml Q15M PRN IV DECREASED GLUCOSE; Start 01/13/19 at 15:30 Glucagon (Glucagen) 1 mg Q15M PRN IM DECREASED GLUCOSE; Start 01/13/19 at 15:30 Glucose (Glutose) 15 gm Q15M PRN BUCCAL DECREASED GLUCOSE; Start 01/13/19 at 15:30 Epoetin Cam-epbx (Retacrit (Esrd)) 4,000 unit TuThSa@1700 SC Last administered on 01/21/19at 17:34; Admin Dose 4,000 UNIT; Start 01/14/19 at 17:00 Levalbuterol (Xopenex Neb) 1.25 mg Q4H RESP THERAPY PRN HHN dyspnea; Start 01/14/19 at 19:00 Fentanyl 100 ml @ 5 mls/hr TITRATE IV Last administered on 01/18/19at 21:11; Admin Dose 5 MLS/HR; Start 01/15/19 at 17:30 Insulin Aspart (Novolog Insulin Pen) NOVOLOG *MILD* ALGORITHM Q4 SC Last administered on 01/22/19at 08:20; Admin Dose 1 UNIT; Start 01/15/19 at 17:55 Ipratropium [place] (Atrovent Hfa) 4 puff Q6H RESP THERAPY INH Last administered on 01/23/19at 07:42; Admin Dose 4 PUFF; Start 01/15/19 at 20:00 Famotidine (Pepcid Iv) 20 mg Q24H IV Last administered on 01/23/19 06:04; Admin Dose 20 MG; Start 01/16/19 at 06:00 Propofol 100 ml @ 2.46 mls/hr Q12H IV Last administered on 01/18/19at 00:27; Admin Dose 9.84 MLS/HR; Start 01/15/19 at 23:00 Vasopressin 60 unit/Dextrose 60 ml @ 1.2 mls/hr Q12H IV Last administered on 01/18/19 05:05; Admin Dose 2.4 MLS/HR; Start 01/16/19 at 02:30 Caspofungin 35 mg/ Sodium Chloride 250 ml @ 250 mls/hr Q24H IVPB Last administered on 01/22/19 16:40; Admin Dose 250 MLS/HR; Start 01/17/19 at 15:00 Docusate Sodium (Colace Liquid Cup) 100 mg BID NGT Last administered on 01/22/19 20:41; Admin Dose 100 MG; Start 01/17/19 at 21:00 Collagenase (Santyl) 1 applic BID TOP Last administered on 01/22/19 20:41; Admin Dose 1 APPLIC; Start 01/17/19 at 21:00 Dexmedetomidine HCl 200 mcg/ Sodium Chloride 50 ml @ 4.1 mls/hr TITRATE IV Last administered on 01/19/19 06:46; Admin Dose 4.1 MLS/HR; Start 01/18/19 at 08:00 Albumin Human 100 ml @ 100 mls/hr DURING DIALYSIS PRN IV BLOOD PRESSURE SUPPORT Last administered on 01/20/19 23:33; Admin Dose 100 MLS/HR; Start 01/18/19 at 11:30 Lactulose (Enulose) 20 gm BID PO Last administered on 01/22/19 20:41; Admin Dose 20 GM; Start 01/19/19 at 21:00 Metoclopramide HCl (Reglan) 5 mg Q6 IV Last administered on 01/23/19 06:04; Admin Dose 5 MG; Start 01/19/19 at 20:00 Amiodarone HCl 900 mg/Dextrose 500 ml @ 0 mls/hr Q0M IV Last administered on 01/21/19 02:54; Admin Dose 33.3 MLS/HR; Start 01/21/19 at 03:00 Heparin Sodium (Porcine) (Heparin (5000 Units/1ml)) 5,000 unit BID SC Last administered on 01/21/19 09:57; Admin Dose 5,000 UNIT; Start 01/21/19 at 09:00; Status Hold Vancomycin HCl 1.25 gm/Sodium Chloride 250 ml @ 83.333 mls/ hr Q96H IVPB Last administered on 6/8/19at 17:32; Admin Dose 83.333 MLS/HR; Start 01/21/19 at 18:00 Amikacin Sulfate (Amikacin Iv Per Pharmacy) AMIKACIN PER PHARMACY NOTE XX ; Start 01/21/19 at 11:30 Metronidazole 100 ml @ 100 mls/hr Q8 IVPB Last administered on 01/23/19at 06:04; Admin Dose 100 MLS/HR; Start 01/21/19 at 14:00 Amikacin Sulfate 375 mg/Sodium Chloride 101.5 ml @ 101.5 mls/ hr AFTER DIALYSIS IVPB ; Start 01/22/19 at 09:00 Norepinephrine 32 mg/Dextrose 250 ml @ 0.47 mls/hr TITRATE IV ; Start 01/23/19 at 09:30 Phenylephrine HCl 80 mg/Dextrose 250 ml @ 18.75 mls/ hr TITRATE IV ; Start 01/23/19 at 09:30 BENIGNO MOBLEY 10, 2019 09:09
[2019-01-23] MEDS: BALSAM PERU/CASTOR OIL 60 GM TUBE TOP SCH ×2 (09:21→20:29)
[2019-01-23] MEDS: FERROUS SULFATE 60 MG/ML 5ML CUP NGT SCH ×2 (09:22→20:28)
[2019-01-23] MEDS ORDERED: NORepinephrine 32 MG in DEXTROSE 5% 218 ML IV SCH (09:30)
[2019-01-23] MEDS: PHENYLephrine 80 MG in DEXTROSE 5% 242 ML IV SCH ×3 (10:18→23:06)
--- NOTE | 2019-01-23 10:19 | CONS ---
Assessment/Plan Assessment/Plan Assessment/Plan (Daily) Hospital Course (Demo Recall) 1. End-stage renal disease on hemodialysis. hemodialysis Wednesday, and Wednesday via left arm AV fistula 2. Septic shock , likely secondary to pneumonia/ cholecystitis. with elevated bilirubin , cx positive for yeast 3. Elevated trop 4. Hypokalemia, resolved. 5. Leukocytosis. 6. Shortness of breath, cough, weakness, leukocytosis of 26.8, likely secondary to pneumonia. with hypoxic and hypercapnic resp failure 7. Hyperbilirubinemia, abnormal liver function tests. 8. respiratory failure, likely secondary to pneumonia. 9. Hypertension, currently hypotensive 10. Dyslipidemia. 11. Diabetes. 12. Anemia chronic disease 13. encephalopathy, ALOC 14 Respiratory failure s/p intubation 15 New onset AFIB WITH uncontrolled HR 16 Abnormal LFT with elevated Bili/direct/alk phos and elevation of transaminases ? r/o obstruction Assessment/Plan (Daily) -unable to tolerate HD yesterday due to HR and hypotension -Would sam cards inuyt in controlling HR today before we subject to HD - [facility] once HR controlled - Consider holding statin given elevated LFT - cw sedation vacation and CPAP ? -avoid nephrotoxic drugs -c/w Epogen with eachHD -restraints Consultation Date/Type/Reason Admit Date/Time January 13, 2019 at 00:07 Initial Consult Date 01/15/19 Date/Time of Note DATE: 01/23/19 TIME: 10:14 24 HR Interval Summary Free Text/Dictation pt was unable to tolerate hd yesterday due to bp and elevated HR on Levophed and benita opens eyes follows commands Exam/Review of Systems Exam Vitals Vital Signs Date Temp Pulse Resp B/P (MAP) Pulse Ox O2 O2 Flow FiO2 Time Delivery Rate 01/23/19 118 08:00 01/23/19 24 100 45 07:42 01/23/19 92/39 (56) Mechanical 07:00 Ventilator 01/23/19 98.3 04:00 Intake and Output 01/22/19 01/22/19 01/23/19 1515:00 23:00 07:00 IntakeIntake Total 400.000 ml 524.150 ml 891.865 ml OutputOutput Total 0 ml 0 ml BalanceBalance 400.000 ml 524.150 ml 891.865 ml Exam Exam left av fistula Constitutional: awake, off sedation, follows commands ENMT: intubated Neck: supple Respiratory: diminished breath sounds Cardiovascular: irregular irregular Gastrointestinal: soft Results Result Diagram: 01/23/19 0430 01/23/19 0430 Results 24hrs Laboratory Tests Test 01/22/19 13:05 01/22/19 16:41 01/22/19 20:40 01/23/19 01:35 Bedside Glucose 140 138 122 127 Test 01/23/19 04:30 01/23/19 04:39 01/23/19 09:13 White Blood Count 20.7 H Red Blood Count 2.79 L Hemoglobin 8.7 L Hematocrit 27.7 L Mean Corpuscular 99.3 Volume Mean Corpuscular 31.2 Hemoglobin Mean Corpuscular 31.4 L Hemoglobin Concent Red Cell 18.3 H Distribution Width Platelet Count 106 L Mean Platelet Volume 12.8 H Immature 1.400 H Granulocytes % Neutrophils % Segmented 84 H Neutrophils % (Manual) Band Neutrophils % 2 (Manual) Lymphocytes % Lymphocytes % 6 L (Manual) Monocytes % Monocytes % (Manual) 5 Eosinophils % Eosinophils % 3 (Manual) Basophils % Nucleated Red Blood 2 H Cells % Immature 0.280 H Granulocytes # Neutrophils # Neutrophils # 17.5 H (Manual) Band Neutrophils # 0.4 Lymphocytes (Manual) 1.2 Lymphocytes # Monocytes # Monocytes # (Manual) 1.0 H Eosinophils # Basophils # Nucleated Red Blood Cells # Platelet Estimate DECREASED Polychromasia 1+ Poikilocytosis 2+ Anisocytosis 2+ Microcytosis 1+ Macrocytosis 1+ Target Cells 1+ Sodium Level 141 Potassium Level 4.6 Chloride Level 109 Carbon Dioxide Level 21 Anion Gap 11 Blood Urea Nitrogen 31 H Creatinine 4.48 H Est Glomerular Filtrat Rate mL/min Glucose Level 119 Calcium Level 8.0 L Total Bilirubin 5.6 H Direct Bilirubin 4.90 H Indirect Bilirubin 0.7 Aspartate Amino 135 H Transf (AST/SGOT) Alanine 31 Aminotransferase (AL T/SGPT) Alkaline Phosphatase 173 H Total Protein 5.0 L Albumin 2.0 L Bedside Glucose 160 134 Medications Medication Current Medications Vancomycin HCl (Vanco Iv Per Pharmacy) VANCOMYCIN PER PHARMACY PER PROTOCOL XX ; Start 01/13/19 at 02:00 IV Flush (NS 3 ml) 3 ml PER PROTOCOL IV ; Start 01/13/19 at 02:00 Acetaminophen (Tylenol Tab) 650 mg Q6H PRN PO .PAIN 1-3 OR TEMP Last administered on 01/18/19 08:28; Admin Dose 650 MG; Start 01/13/19 at 02:00 Acetaminophen/ Hydrocodone Bitart ([place] (5/325)) 1 tab Q6H PRN PO .PAIN 4-6 Last administered on 01/15/19 13:40; Admin Dose 1 TAB; Start 01/13/19 at 02:00 Docusate Sodium (Colace) 100 mg Q12H PRN PO .CONSTIPATION Last administered on 01/21/19 13:52; Admin Dose 100 MG; Start 01/13/19 at 02:00 Bisacodyl (Dulcolax) 5 mg DAILY PRN PO .CONSTIPATION Last administered on 01/21/19 13:52; Admin Dose 5 MG; Start 01/13/19 at 02:00 Atorvastatin Calcium (Lipitor) 40 mg DAILY@21 PO Last administered on 01/22/19 20:41; Admin Dose 40 MG; Start 01/13/19 at 21:00 Folic Acid (Folic Acid) 1 mg DAILY PO Last administered on 01/23/19 09:08; Admin Dose 1 MG; Start 01/13/19 at 09:00 Insulin Glargine (Lantus) 20 units QHS SC Last administered on 01/14/19 22:04; Admin Dose 20 UNITS; Start 01/13/19 at 21:00; Status Hold Aspirin (Aspirin) 81 mg DAILY PO Last administered on 01/23/19 09:08; Admin Dose 81 MG; Start 01/13/19 at 11:00 Miscellaneous Information 1 ea NOTE XX ; Start 01/13/19 at 15:30 Glucose (Glutose) 15 gm Q15M PRN PO DECREASED GLUCOSE; Start 01/13/19 at 15:30 Glucose (Glutose) 22.5 gm Q15M PRN PO DECREASED GLUCOSE; Start 01/13/19 at 15:30 Dextrose (D50w Syringe) 25 ml Q15M PRN IV DECREASED GLUCOSE; Start 01/13/19 at 15:30 Dextrose (D50w Syringe) 50 ml Q15M PRN IV DECREASED GLUCOSE; Start 01/13/19 at 15:30 Glucagon (Glucagen) 1 mg Q15M PRN IM DECREASED GLUCOSE; Start 01/13/19 at 15:30 Glucose (Glutose) 15 gm Q15M PRN BUCCAL DECREASED GLUCOSE; Start 01/13/19 at 15:30 Epoetin Cam-epbx (Retacrit (Esrd)) 4,000 unit TuThSa@1700 SC Last administered on 01/21/19 17:34; Admin Dose 4,000 UNIT; Start 01/14/19 at 17:00 Levalbuterol (Xopenex Neb) 1.25 mg Q4H RESP THERAPY PRN HHN dyspnea; Start 01/14/19 at 19:00 Fentanyl 100 ml @ 5 mls/hr TITRATE IV Last administered on 01/18/19 21:11; Admin Dose 5 MLS/HR; Start 01/15/19 at 17:30 Insulin Aspart (Novolog Insulin Pen) NOVOLOG *MILD* ALGORITHM Q4 SC Last administered on 01/22/19 08:20; Admin Dose 1 UNIT; Start 01/15/19 at 17:55 Ipratropium [place] (Atrovent Hfa) 4 puff Q6H RESP THERAPY INH Last administ ered on 01/23/19 07:42; Admin Dose 4 PUFF; Start 01/15/19 at 20:00 Famotidine (Pepcid Iv) 20 mg Q24H IV Last administered on 01/23/19 06:04; Admin Dose 20 MG; Start 01/16/19 at 06:00 Propofol 100 ml @ 2.46 mls/hr Q12H IV Last administered on 01/18/19 00:27; Admin Dose 9.84 MLS/HR; Start 01/15/19 at 23:00 Vasopressin 60 unit/Dextrose 60 ml @ 1.2 mls/hr Q12H IV Last administered on 01/18/19 05:05; Admin Dose 2.4 MLS/HR; Start 01/16/19 at 02:30 Caspofungin 35 mg/ Sodium Chloride 250 ml @ 250 mls/hr Q24H IVPB Last administered on 01/22/19 16:40; Admin Dose 250 MLS/HR; Start 01/17/19 at 15:00 Docusate Sodium (Colace Liquid Cup) 100 mg BID NGT Last administered on 01/23/19 09:08; Admin Dose 100 MG; Start 01/17/19 at 21:00 Collagenase (Santyl) 1 applic BID TOP Last administered on 01/23/19 09:09; Admin Dose 1 APPLIC; Start 01/17/19 at 21:00 Dexmedetomidine HCl 200 mcg/ Sodium Chloride 50 ml @ 4.1 mls/hr TITRATE IV Last administered on 01/19/19 06:46; Admin Dose 4.1 MLS/HR; Start 01/18/19 at 08:00 Albumin Human 100 ml @ 100 mls/hr DURING DIALYSIS PRN IV BLOOD PRESSURE SUPPORT Last administered on 01/20/19 23:33; Admin Dose 100 MLS/HR; Start 01/18/19 at 11:30 Lactulose (Enulose) 20 gm BID PO Last administered on 01/23/19 09:08; Admin Dose 20 GM; Start 01/19/19 at 21:00 Metoclopramide HCl (Reglan) 5 mg Q6 IV Last administered on 01/23/19 06:04; Admin Dose 5 MG; Start 01/19/19 at 20:00 Amiodarone HCl 900 mg/Dextrose 500 ml @ 0 mls/hr Q0M IV Last administered on 01/21/19 02:54; Admin Dose 33.3 MLS/HR; Start 01/21/19 at 03:00 Heparin Sodium (Porcine) (Heparin (5000 Units/1ml)) 5,000 unit BID SC Last administered on 01/21/19 09:57; Admin Dose 5,000 UNIT; Start 01/21/19 at 09:00; Status Hold Vancomycin HCl 1.25 gm/Sodium Chloride 250 ml @ 83.333 mls/ hr Q96H IVPB Last administered on 01/21/19 17:32; Admin Dose 83.333 MLS/HR; Start 01/21/19 at 18:00 Amikacin Sulfate (Amikacin Iv Per Pharmacy) AMIKACIN PER PHARMACY NOTE XX ; Start 01/21/19 at 11:30 Metronidazole 100 ml @ 100 mls/hr Q8 IVPB Last administered on 01/23/19 06:04; Admin Dose 100 MLS/HR; Start 01/21/19 at 14:00 Amikacin Sulfate 375 mg/Sodium Chloride 101.5 ml @ 101.5 mls/ hr AFTER DIALYSIS IVPB ; Start 01/22/19 at 09:00 Norepinephrine 32 mg/Dextrose 250 ml @ 0.47 mls/hr TITRATE IV ; Start 01/23/19 at 09:30 Phenylephrine HCl 80 mg/Dextrose 250 ml @ 18.75 mls/ hr TITRATE IV ; Start 01/23/19 at 09:30 Ferrous Sulfate (Feosol Liquid Cup) 300 mg BID NGT Last administered on 01/23/19at 09:22; Admin Dose 300 MG; Start 01/23/19 at 09:30 JUAN NOLAND MD Jan 23, 2019 10:19
[2019-01-23] MEDS ORDERED: AMIODARONE 900 MG in DEXTROSE 5% 482 ML IV SCH (11:00)
[2019-01-23] MEDS ORDERED: DOCUSATE SODIUM 10 MG/ML (10ML CUP) NGT PRN (11:30)
[2019-01-23] MEDS ORDERED: BISACODYL 10 MG SUPP PR PRN (11:30)
--- NOTE | 2019-01-23 11:59 | CONS ---
Assessment/Plan Assessment/Plan Hospital Course (Demo Recall) Remains intubated on pressors more responsive no fevers overnight T-max 99.9 WBC 20.7 H&H 8.7 and 27.7 platelets 106 Microbiology: Sputum culture growing yeast, not Rhea albicans Chest x-ray this morning revealed diffuse bilateral interstitial opacities that may reflect a combination of edema and pneumonia Antimicrobials: Cancidas amikacin, Flagyl, vancomycin 01/17/19 CT abdomen pelvis without contrast revealed diffuse colitis. Cholelithiasis without evidence for cholecystitis. Nonspecific patchy bibasilar pulmonary consolidation. Please see full report in the chart Indwelling's endotracheal tube, NG tube, right IJ triple-lumen catheter, left upper extremity AV fistula Physical examination: Chronically ill-appearing elderly man who is intubated sedated in no distress. Head atraumatic normocephalic sclera nonicteric vehicle mucosa dry. Neck is supple chest rise symmetrical breath sounds diminished bases. Heart: S1-S2. Abdomen soft bowel sounds present. Extremities with bilateral edema. Assessment: 1. Severe sepsis with shock ?biliary 2. Acute hypoxemic respiratory failure/CHF exacerbation 3. Healthcare associated pneumonia possibly aspirated 4. Colitis 5. End-stage renal disease, hemodialysis dependent 6. Coronary artery disease 7. Transaminitis with elevated total bilirubin, poss obstruction Plan: Patient remains unchanged, continue antibiotics Consultation Date/Type/Reason Admit Date/Time January 13, 2019 at 00:07 Initial Consult Date 01/15/19 Type of Consult id Date/Time of Note DATE: 01/23/19 TIME: 11:52 Exam/Review of Systems Exam Vitals Vital Signs Date Temp Pulse Resp B/P (MAP) Pulse Ox O2 O2 Flow FiO2 Time Delivery Rate 01/23/19 122 28 100 45 09:24 01/23/19 92/39 (56) Mechanical 07:00 Ventilator 01/23/19 98.3 04:00 Intake and Output 01/22/19 01/22/19 01/23/19 1515:00 23:00 07:00 IntakeIntake Total 400.000 ml 524.150 ml 891.865 ml OutputOutput Total 0 ml 0 ml BalanceBalance 400.000 ml 524.150 ml 891.865 ml Results Result Diagram: 01/23/19 0430 01/23/19 0430 Results 24hrs Laboratory Tests Test 01/22/19 13:05 01/22/19 16:41 01/22/19 20:40 01/23/19 01:35 Bedside Glucose 140 138 122 127 Test 01/23/19 04:30 01/23/19 04:39 01/23/19 09:13 White Blood Count 20.7 H Red Blood Count 2.79 L Hemoglobin 8.7 L Hematocrit 27.7 L Mean Corpuscular 99.3 Volume Mean Corpuscular 31.2 Hemoglobin Mean Corpuscular 31.4 L Hemoglobin Concent Red Cell 18.3 H Distribution Width Platelet Count 106 L Mean Platelet Volume 12.8 H Immature 1.400 H Granulocytes % Neutrophils % Segmented 84 H Neutrophils % (Manual) Band Neutrophils % 2 (Manual) Lymphocytes % Lymphocytes % 6 L (Manual) Monocytes % Monocytes % (Manual) 5 Eosinophils % Eosinophils % 3 (Manual) Basophils % Nucleated Red Blood 2 H Cells % Immature 0.280 H Granulocytes # Neutrophils # Neutrophils # 17.5 H (Manual) Band Neutrophils # 0.4 Lymphocytes (Manual) 1.2 Lymphocytes # Monocytes # Monocytes # (Manual) 1.0 H Eosinophils # Basophils # Nucleated Red Blood Cells # Platelet Estimate DECREASED Polychromasia 1+ Poikilocytosis 2+ Anisocytosis 2+ Microcytosis 1+ Macrocytosis 1+ Target Cells 1+ Sodium Level 141 Potassium Level 4.6 Chloride Level 109 Carbon Dioxide Level 21 Anion Gap 11 Blood Urea Nitrogen 31 H Creatinine 4.48 H Est Glomerular Filtrat Rate mL/min Glucose Level 119 Calcium Level 8.0 L Total Bilirubin 5.6 H Direct Bilirubin 4.90 H Indirect Bilirubin 0.7 Aspartate Amino 135 H Transf (AST/SGOT) Alanine 31 Aminotransferase (AL T/SGPT) Alkaline Phosphatase 173 H Total Protein 5.0 L Albumin 2.0 L Bedside Glucose 160 134 Medications Medication Current Medications Vancomycin HCl (Vanco Iv Per Pharmacy) VANCOMYCIN PER PHARMACY PER PROTOCOL XX ; Start 01/13/19 at 02:00 IV Flush (NS 3 ml) 3 ml PER PROTOCOL IV ; Start 01/13/19 at 02:00 Acetaminophen (Tylenol Tab) 650 mg Q6H PRN PO .PAIN 1-3 OR TEMP Last administe red on 01/18/19at 08:28; Admin Dose 650 MG; Start 01/13/19 at 02:00 Acetaminophen/ Hydrocodone Bitart ([place] (5/325)) 1 tab Q6H PRN PO .PAIN 4-6 Last administered on 01/15/19at 13:40; Admin Dose 1 TAB; Start 01/13/19 at 02:00 Atorvastatin Calcium (Lipitor) 40 mg DAILY@21 PO Last administered on 01/22/19at 20:41; Admin Dose 40 MG; Start 01/13/19 at 21:00 Folic Acid (Folic Acid) 1 mg DAILY PO Last administered on 01/23/19at 09:08; Admin Dose 1 MG; Start 01/13/19 at 09:00 Insulin Glargine (Lantus) 20 units QHS SC Last administered on 01/14/19at 22:04; Admin Dose 20 UNITS; Start 01/13/19 at 21:00; Status Hold Aspirin (Aspirin) 81 mg DAILY PO Last administered on 01/23/19at 09:08; Admin Dose 81 MG; Start 01/13/19 at 11:00 Miscellaneous Information 1 ea NOTE XX ; Start 01/13/19 at 15:30 Glucose (Glutose) 15 gm Q15M PRN PO DECREASED GLUCOSE; Start 01/13/19 at 15:30 Glucose (Glutose) 22.5 gm Q15M PRN PO DECREASED GLUCOSE; Start 01/13/19 at 15:30 Dextrose (D50w Syringe) 25 ml Q15M PRN IV DECREASED GLUCOSE; Start 01/13/19 at 15:30 Dextrose (D50w Syringe) 50 ml Q15M PRN IV DECREASED GLUCOSE; Start 01/13/19 at 15:30 Glucagon (Glucagen) 1 mg Q15M PRN IM DECREASED GLUCOSE; Start 01/13/19 at 15:30 Glucose (Glutose) 15 gm Q15M PRN BUCCAL DECREASED GLUCOSE; Start 01/13/19 at 15:30 Epoetin Cam-epbx (Retacrit (Esrd)) 4,000 unit TuThSa@1700 SC Last administered on 01/21/19at 17:34; Admin Dose 4,000 UNIT; Start 01/14/19 at 17:00 Levalbuterol (Xopenex Neb) 1.25 mg Q4H RESP THERAPY PRN HHN dyspnea; Start 01/14/19 at 19:00 Ipratropium [place] (Atrovent Hfa) 4 puff Q6H RESP THERAPY INH Last admi nistered on 01/23/19 07:42; Admin Dose 4 PUFF; Start 01/15/19 at 20:00 Famotidine (Pepcid Iv) 20 mg Q24H IV Last administered on 01/23/19 06:04; Admin Dose 20 MG; Start 01/16/19 at 06:00 Vasopressin 60 unit/Dextrose 60 ml @ 1.2 mls/hr Q12H IV Last administered on 01/18/19 05:05; Admin Dose 2.4 MLS/HR; Start 01/16/19 at 02:30 Caspofungin 35 mg/ Sodium Chloride 250 ml @ 250 mls/hr Q24H IVPB Last administered on 01/22/19 16:40; Admin Dose 250 MLS/HR; Start 01/17/19 at 15:00 Docusate Sodium (Colace Liquid Cup) 100 mg BID NGT Last administered on 01/23/19 09:08; Admin Dose 100 MG; Start 01/17/19 at 21:00 Collagenase (Santyl) 1 applic BID TOP Last administered on 01/23/19 09:09; Admin Dose 1 APPLIC; Start 01/17/19 at 21:00 Albumin Human 100 ml @ 100 mls/hr DURING DIALYSIS PRN IV BLOOD PRESSURE SUPPORT Last administered on 01/20/19 23:33; Admin Dose 100 MLS/HR; Start 01/18/19 at 11:30 Lactulose (Enulose) 20 gm BID PO Last administered on 01/23/19 09:08; Admin Dose 20 GM; Start 01/19/19 at 21:00 Metoclopramide HCl (Reglan) 5 mg Q6 IV Last administered on 01/23/19 06:04; Admin Dose 5 MG; Start 01/19/19 at 20:00 Heparin Sodium (Porcine) (Heparin (5000 Units/1ml)) 5,000 unit BID SC Last administered on 01/21/19 09:57; Admin Dose 5,000 UNIT; Start 01/21/19 at 09:00 Vancomycin HCl 1.25 gm/Sodium Chloride 250 ml @ 83.333 mls/ hr Q96H IVPB Last administered on 01/21/19 17:32; Admin Dose 83.333 MLS/HR; Start 01/21/19 at 18:00 Amikacin Sulfate (Amikacin Iv Per Pharmacy) AMIKACIN PER PHARMACY NOTE XX ; Start 01/21/19 at 11:30 Metronidazole 100 ml @ 100 mls/hr Q8 IVPB Last administered on 01/23/19at 06:04; Admin Dose 100 MLS/HR; Start 01/21/19 at 14:00 Amikacin Sulfate 375 mg/Sodium Chloride 101.5 ml @ 101.5 mls/ hr AFTER DIALYSIS IVPB ; Start 01/22/19 at 09:00 Norepinephrine 32 mg/Dextrose 250 ml @ 0.47 mls/hr TITRATE IV Last administered on 01/23/19at 10:17; Admin Dose 6.09 MLS/HR; Start 01/23/19 at 09:30 Phenylephrine HCl 80 mg/Dextrose 250 ml @ 18.75 mls/ hr TITRATE IV Last administered on 01/23/19at 10:18; Admin Dose 30 MLS/HR; Start 01/23/19 at 09:30 Ferrous Sulfate (Feosol Liquid Cup) 300 mg BID NGT Last administered on 01/23/19at 09:22; Admin Dose 300 MG; Start 01/23/19 at 09:30 Amiodarone HCl 900 mg/Dextrose 500 ml @ 0 mls/hr Q0M IV Last administered on 01/23/19at 11:38; Admin Dose 33.3 MLS/HR; Start 01/23/19 at 11:00; Stop 01/24/19 at 10:59 Bisacodyl (Dulcolax Supp) 10 mg DAILY PRN MA CONSTIPATION; Start 01/23/19 at 11:30 Docusate Sodium (Colace Liquid Cup) 100 mg Q12H PRN NGT CONSTIPATION; Start 01/23/19 at 11:30 Diagnostic Test (Pha) (Accu-Chek) 1 ea 02 XX ; Start 01/24/19 at 02:00 Insulin Aspart (Novolog Insulin Pen) NOVOLOG *MILD* ALGORI... Q4 SC ; Start 01/23/19 at 13:00 REJI RUBIO NP Jan 23, 2019 11:59
--- NOTE | 2019-01-23 14:21 | PN ---
Date/Time of Note Date/Time of Note DATE: 01/23/19 TIME: 14:00 Assessment/Plan VTE Prophylaxis Risk score (from Ns)>0 risk: 9 SCD applied (from Ns): Yes Pharmacological prophylaxis: other (scds) Lines/Catheters IV Catheter Type (from Nrs): Central Line Central line still needed: Yes (meds) Urinary Cath still in place: No Assessment/Plan Hospital Course Assessment: Elevated LFTs with direct hyperbilirubinemia- improving -Hepatitis serologies negative -No biliary dilatation, on CT scan -ASMA/AMA- negative -SAÚL positive Imaging concerning for cirrhosis -Mild ascites -Thrombocytopenia -Coagulopathy Normocytic anemia Mild diffuse colitis on imaging - no diarrhea -KUB- no obstruction -CT- No bowel obstruction. Leukocytosis- trending down Healthcare associated pneumonia Hypoxic respiratory failure -intubated on MV NSTEMI, type II Coronary artery disease -History of CABG ESRD DM HTN Plan: MRCP when patient stable to rule out common bile duct obstruction versus hepatocellular disease Trend LFTs Supportive care Patient seen in collaboration with Dr. Resendez Subjective: Course reviewed with nursing staff Patient interviewed and examined All labs, imaging and other results reviewed Pt able to follow simple commands this morning -when asked in Swedish. Pt remains on pressors, in IC, intubated. Currently LFTs - are trending down. Patient had x2 Bm today - large brown in color. PHYSICAL EXAMINATION: GENERAL: Intubated, sedation, on pressors, jaundice, OG in place. SKIN: No lesions, CHEST: Inspection within normal limits. CARDIOVASCULAR: Heart: Regular rate and rhythm RESPIRATORY: Lungs clear to auscultation and percussion, no wheezing, no rubs GASTROINTESTINAL AND LIVER: Abdomen: Soft, non tenderness, non-distended, no hernias, no guarding, no rebound tenderness, hypoactive bowel sounds. Rectal: Deferred. EXTREMITIES: No cyanosis, clubbing or edema. Result Diagram: 01/23/19 0430 01/23/19 0430 Results 24hrs Laboratory Tests Test 01/22/19 16:41 01/22/19 20:40 01/23/19 01:35 01/23/19 04:30 Bedside Glucose 138 122 127 White Blood Count 20.7 H Red Blood Count 2.79 L Hemoglobin 8.7 L Hematocrit 27.7 L Mean Corpuscular 99.3 Volume Mean Corpuscular 31.2 Hemoglobin Mean Corpuscular 31.4 L Hemoglobin Concent Red Cell 18.3 H Distribution Width Platelet Count 106 L Mean Platelet Volume 12.8 H Immature 1.400 H Granulocytes % Neutrophils % Segmented 84 H Neutrophils % (Manual) Band Neutrophils % 2 (Manual) Lymphocytes % Lymphocytes % 6 L (Manual) Monocytes % Monocytes % (Manual) 5 Eosinophils % Eosinophils % 3 (Manual) Basophils % Nucleated Red Blood 2 H Cells % Immature 0.280 H Granulocytes # Neutrophils # Neutrophils # 17.5 H (Manual) Band Neutrophils # 0.4 Lymphocytes (Manual) 1.2 Lymphocytes # Monocytes # Monocytes # (Manual) 1.0 H Eosinophils # Basophils # Nucleated Red Blood Cells # Platelet Estimate DECREASED Polychromasia 1+ Poikilocytosis 2+ Anisocytosis 2+ Microcytosis 1+ Macrocytosis 1+ Target Cells 1+ Sodium Level 141 Potassium Level 4.6 Chloride Level 109 Carbon Dioxide Level 21 Anion Gap 11 Blood Urea Nitrogen 31 H Creatinine 4.48 H Est Glomerular Filtrat Rate mL/min Glucose Level 119 Calcium Level 8.0 L Total Bilirubin 5.6 H Direct Bilirubin 4.90 H Indirect Bilirubin 0.7 Aspartate Amino 135 H Transf (AST/SGOT) Alanine 31 Aminotransferase (AL T/SGPT) Alkaline Phosphatase 173 H Total Protein 5.0 L Albumin 2.0 L Test 01/23/19 04:39 01/23/19 09:13 01/23/19 12:44 Bedside Glucose 160 134 118 Exam/Review of Systems Exam Vitals Vital Signs Date Temp Pulse Resp B/P (MAP) Pulse Ox O2 O2 Flow FiO2 Time Delivery Rate 01/23/19 135 28 93/39 (57) 12:15 01/23/19 45 12:00 01/23/19 99.6 93 12:00 01/23/19 Mechanical 11:00 Ventilator Intake and Output 01/22/19 01/22/19 01/23/19 1515:00 23:00 07:00 IntakeIntake Total 400.000 ml 524.150 ml 891.865 ml OutputOutput Total 0 ml 0 ml BalanceBalance 400.000 ml 524.150 ml 891.865 ml Results Results 24hrs Laboratory Tests Test 01/22/19 16:41 01/22/19 20:40 01/23/19 01:35 01/23/19 04:30 Bedside Glucose 138 122 127 White Blood Count 20.7 H Red Blood Count 2.79 L Hemoglobin 8.7 L Hematocrit 27.7 L Mean Corpuscular 99.3 Volume Mean Corpuscular 31.2 Hemoglobin Mean Corpuscular 31.4 L Hemoglobin Concent Red Cell 18.3 H Distribution Width Platelet Count 106 L Mean Platelet Volume 12.8 H Immature 1.400 H Granulocytes % Neutrophils % Segmented 84 H Neutrophils % (Manual) Band Neutrophils % 2 (Manual) Lymphocytes % Lymphocytes % 6 L (Manual) Monocytes % Monocytes % (Manual) 5 Eosinophils % Eosinophils % 3 (Manual) Basophils % Nucleated Red Blood 2 H Cells % Immature 0.280 H Granulocytes # Neutrophils # Neutrophils # 17.5 H (Manual) Band Neutrophils # 0.4 Lymphocytes (Manual) 1.2 Lymphocytes # Monocytes # Monocytes # (Manual) 1.0 H Eosinophils # Basophils # Nucleated Red Blood Cells # Platelet Estimate DECREASED Polychromasia 1+ Poikilocytosis 2+ Anisocytosis 2+ Microcytosis 1+ Macrocytosis 1+ Target Cells 1+ Sodium Level 141 Potassium Level 4.6 Chloride Level 109 Carbon Dioxide Level 21 Anion Gap 11 Blood Urea Nitrogen 31 H Creatinine 4.48 H Est Glomerular Filtrat Rate mL/min Glucose Level 119 Calcium Level 8.0 L Total Bilirubin 5.6 H Direct Bilirubin 4.90 H Indirect Bilirubin 0.7 Aspartate Amino 135 H Transf (AST/SGOT) Alanine 31 Aminotransferase (AL T/SGPT) Alkaline Phosphatase 173 H Total Protein 5.0 L Albumin 2.0 L Test 01/23/19 04:39 01/23/19 09:13 01/23/19 12:44 Bedside Glucose 160 134 118 Medications Medication Current Medications Vancomycin HCl (Vanco Iv Per Pharmacy) VANCOMYCIN PER PHARMACY PER PROTOCOL XX ; Start 01/13/19 at 02:00 IV Flush (NS 3 ml) 3 ml PER PROTOCOL IV ; Start 01/13/19 at 02:00 Acetaminophen (Tylenol Tab) 650 mg Q6H PRN PO .PAIN 1-3 OR TEMP Last administered on 01/18/19at 08:28; Admin Dose 650 MG; Start 01/13/19 at 02:00 Acetaminophen/ Hydrocodone Bitart ([place] (5/325)) 1 tab Q6H PRN PO .PAIN 4-6 Last administered on 01/15/19at 13:40; Admin Dose 1 TAB; Start 01/13/19 at 02:00 Atorvastatin Calcium (Lipitor) 40 mg DAILY@21 PO Last administered on 01/22/19at 20:41; Admin Dose 40 MG; Start 01/13/19 at 21:00 Folic Acid (Folic Acid) 1 mg DAILY PO Last administered on 01/23/19at 09:08; Admin Dose 1 MG; Start 01/13/19 at 09:00 Insulin Glargine (Lantus) 20 units QHS SC Last administered on 01/14/19at 22:04; Admin Dose 20 UNITS; Start 01/13/19 at 21:00; Status Hold Aspirin (Aspirin) 81 mg DAILY PO Last administered on 01/23/19at 09:08; Admin D ose 81 MG; Start 01/13/19 at 11:00 Miscellaneous Information 1 ea NOTE XX ; Start 01/13/19 at 15:30 Glucose (Glutose) 15 gm Q15M PRN PO DECREASED GLUCOSE; Start 01/13/19 at 15:30 Glucose (Glutose) 22.5 gm Q15M PRN PO DECREASED GLUCOSE; Start 01/13/19 at 15:30 Dextrose (D50w Syringe) 25 ml Q15M PRN IV DECREASED GLUCOSE; Start 01/13/19 at 15:30 Dextrose (D50w Syringe) 50 ml Q15M PRN IV DECREASED GLUCOSE; Start 01/13/19 at 15:30 Glucagon (Glucagen) 1 mg Q15M PRN IM DECREASED GLUCOSE; Start 01/13/19 at 15:30 Glucose (Glutose) 15 gm Q15M PRN BUCCAL DECREASED GLUCOSE; Start 01/13/19 at 15:30 Epoetin Cam-epbx (Retacrit (Esrd)) 4,000 unit TuThSa@1700 SC Last administered on 01/21/19at 17:34; Admin Dose 4,000 UNIT; Start 01/14/19 at 17:00 Levalbuterol (Xopenex Neb) 1.25 mg Q4H RESP THERAPY PRN HHN dyspnea; Start 01/14/19 at 19:00 Ipratropium [place] (Atrovent Hfa) 4 puff Q6H RESP THERAPY INH Last administered on 01/23/19at 13:31; Admin Dose 4 PUFF; Start 01/15/19 at 20:00 Famotidine (Pepcid Iv) 20 mg Q24H IV Last administered on 01/23/19 06:04; Admin Dose 20 MG; Start 01/16/19 at 06:00 Vasopressin 60 unit/Dextrose 60 ml @ 1.2 mls/hr Q12H IV Last administered on 01/18/19 05:05; Admin Dose 2.4 MLS/HR; Start 01/16/19 at 02:30 Caspofungin 35 mg/ Sodium Chloride 250 ml @ 250 mls/hr Q24H IVPB Last administered on 01/22/19 16:40; Admin Dose 250 MLS/HR; Start 01/17/19 at 15:00 Docusate Sodium (Colace Liquid Cup) 100 mg BID NGT Last administered on 01/23/19 09:08; Admin Dose 100 MG; Start 01/17/19 at 21:00 Collagenase (Santyl) 1 applic BID TOP Last administered on 01/23/19 09:09; Admin Dose 1 APPLIC; Start 01/17/19 at 21:00 Albumin Human 100 ml @ 100 mls/hr DURING DIALYSIS PRN IV BLOOD PRESSURE SUPPORT Last administered on 01/20/19 23:33; Admin Dose 100 MLS/HR; Start 01/18/19 at 11:30 Lactulose (Enulose) 20 gm BID PO Last administered on 01/23/19 09:08; Admin Dose 20 GM; Start 01/19/19 at 21:00 Metoclopramide HCl (Reglan) 5 mg Q6 IV Last administered on 01/23/19 12:42; A dmin Dose 5 MG; Start 01/19/19 at 20:00 Heparin Sodium (Porcine) (Heparin (5000 Units/1ml)) 5,000 unit BID SC Last administered on 01/21/19 09:57; Admin Dose 5,000 UNIT; Start 01/21/19 at 09:00 Vancomycin HCl 1.25 gm/Sodium Chloride 250 ml @ 83.333 mls/ hr Q96H IVPB Last administered on 01/21/19 17:32; Admin Dose 83.333 MLS/HR; Start 01/21/19 at 18:00 Amikacin Sulfate (Amikacin Iv Per Pharmacy) AMIKACIN PER PHARMACY NOTE XX ; Start 01/21/19 at 11:30 Metronidazole 100 ml @ 100 mls/hr Q8 IVPB Last administered on 01/23/19at 06:04; Admin Dose 100 MLS/HR; Start 01/21/19 at 14:00 Amikacin Sulfate 375 mg/Sodium Chloride 101.5 ml @ 101.5 mls/ hr AFTER DIALYSIS IVPB ; Start 01/22/19 at 09:00 Norepinephrine 32 mg/Dextrose 250 ml @ 0.47 mls/hr TITRATE IV Last administered on 01/23/19at 10:17; Admin Dose 6.09 MLS/HR; Start 01/23/19 at 09:30 Phenylephrine HCl 80 mg/Dextrose 250 ml @ 18.75 mls/ hr TITRATE IV Last administered on 01/23/19at 10:18; Admin Dose 30 MLS/HR; Start 01/23/19 at 09:30 Ferrous Sulfate (Feosol Liquid Cup) 300 mg BID NGT Last administered on 01/23/19at 09:22; Admin Dose 300 MG; Start 01/23/19 at 09:30 Amiodarone HCl 900 mg/Dextrose 500 ml @ 0 mls/hr Q0M IV Last administered on 01/23/19at 11:38; Admin Dose 33.3 MLS/HR; Start 01/23/19 at 11:00; Stop 01/24/19 at 10:59 Bisacodyl (Dulcolax Supp) 10 mg DAILY PRN IN CONSTIPATION; Start 01/23/19 at 11:30 Docusate Sodium (Colace Liquid Cup) 100 mg Q12H PRN NGT CONSTIPATION; Start 01/23/19 at 11:30 Diagnostic Test (Pha) (Accu-Chek) 1 ea 02 XX ; Start 01/24/19 at 02:00 Insulin Aspart (Novolog Insulin Pen) NOVOLOG *MILD* ALGORI... Q4 SC ; Start 01/23/19 at 13:00 EDELMIRA WILSON Jan 23, 2019 14:10
--- NOTE | 2019-01-23 14:30 | PN ---
Date/Time of Note Date/Time of Note DATE: 01/23/19 TIME: 14:21 Assessment/Plan VTE Prophylaxis Risk score (from Ns)>0 risk: 9 SCD applied (from Ns): Yes Pharmacological prophylaxis: heparin Lines/Catheters IV Catheter Type (from Nrsg): Central Line Central line still needed: Yes Urinary Cath still in place: No Assessment/Plan Assessment/Plan Frail 73 yo man, ESRD on dialysis, CHF, cirrhosis, presents with severe bilateral pneumonia. #Bilateral pneumonia #Septic shock - ID is following - Currently on vanco, flagyl - Requiring two vasopressors. #Respiratory failure - Currently intubated on vent - Due to hypoxia from pneumonia WELL poor mental status. - Minimize sedation. Continue lactulose for hepatic encephalopathy. Goal 2-3 BMs per day. #Chronic congestive heart failure - Currently euvolemic - Continue dialysis as needed - Not on BB or ACEi while hypotensive. #ESRD - Continue HD per renal. #Diabetes - Continue sliding scale insulin #A fib - Amiodarone per cardiology - For now will hold off on anticoagulation due to bleeding risk from cirrhosis. Plan: Very poor prognosis with multi-system organ failure. Continue to address goals of care with family. Dr. Frost following. More than 40 minutes spent on this encounter Result Diagram: 01/23/19 04301/23/19 043 Subjective 24 Hr Interval Summary Free Text/Dictation No acute overnight events. Patient restarted on amiodarone gtt Still requiring two pressors Patient slightly more awake, interacting with son this morning. Opens eyes on command. Patient just started pooping today on lactulose. Exam/Review of Systems Exam Vitals Vital Signs Date Temp Pulse Resp B/P (MAP) Pulse Ox O2 O2 Flow FiO2 Time Delivery Rate 01/23/19 114 30 97 45 13:31 01/23/19 93/39 (57) 12:15 01/23/19 99.6 12:00 01/23/19 Mechanical 11:00 Ventilator Intake and Output 01/22/19 01/22/19 01/23/19 1515:00 23:00 07:00 IntakeIntake Total 400.000 ml 524.150 ml 891.865 ml OutputOutput Total 0 ml 0 ml BalanceBalance 400.000 ml 524.150 ml 891.865 ml Exam Constitutional: Overweight man supine in bed, lethargic minimally responsive. Eyes: Icteric. Respiratory: Coarse mechanical breath sounds throughout. Cardiac: Regular rate and rhythm Gastrointestinal: soft, nondistended. Genitourinary Lopez in place. Neuro: For me the patient is minimally responsive, opens eyes to sternal rub. Results Results 24hrs Laboratory Tests Test 01/22/19 16:41 01/22/19 20:40 01/23/19 01:35 01/23/19 04:30 Bedside Glucose 138 122 127 White Blood Count 20.7 H Red Blood Count 2.79 L Hemoglobin 8.7 L Hematocrit 27.7 L Mean Corpuscular 99.3 Volume Mean Corpuscular 31.2 Hemoglobin Mean Corpuscular 31.4 L Hemoglobin Concent Red Cell 18.3 H Distribution Width Platelet Count 106 L Mean Platelet Volume 12.8 H Immature 1.400 H Granulocytes % Neutrophils % Segmented 84 H Neutrophils % (Manual) Band Neutrophils % 2 (Manual) Lymphocytes % Lymphocytes % 6 L (Manual) Monocytes % Monocytes % (Manual) 5 Eosinophils % Eosinophils % 3 (Manual) Basophils % Nucleated Red Blood 2 H Cells % Immature 0.280 H Granulocytes # Neutrophils # Neutrophils # 17.5 H (Manual) Band Neutrophils # 0.4 Lymphocytes (Manual) 1.2 Lymphocytes # Monocytes # Monocytes # (Manual) 1.0 H Eosinophils # Basophils # Nucleated Red Blood Cells # Platelet Estimate DECREASED Polychromasia 1+ Poikilocytosis 2+ Anisocytosis 2+ Microcytosis 1+ Macrocytosis 1+ Target Cells 1+ Sodium Level 141 Potassium Level 4.6 Chloride Level 109 Carbon Dioxide Level 21 Anion Gap 11 Blood Urea Nitrogen 31 H Creatinine 4.48 H Est Glomerular Filtrat Rate mL/min Glucose Level 119 Calcium Level 8.0 L Total Bilirubin 5.6 H Direct Bilirubin 4.90 H Indirect Bilirubin 0.7 Aspartate Amino 135 H Transf (AST/SGOT) Alanine 31 Aminotransferase (AL T/SGPT) Alkaline Phosphatase 173 H Total Protein 5.0 L Albumin 2.0 L Test 01/23/19 04:39 01/23/19 09:13 01/23/19 12:44 Bedside Glucose 160 134 118 Medications Medication Current Medications Vancomycin HCl (Vanco Iv Per Pharmacy) VANCOMYCIN PER PHARMACY PER PROTOCOL XX ; Start 01/13/19 at 02:00 IV Flush (NS 3 ml) 3 ml PER PROTOCOL IV ; Start 01/13/19 at 02:00 Acetaminophen (Tylenol Tab) 650 mg Q6H PRN PO .PAIN 1-3 OR TEMP Last administered on 01/18/19 08:28; Admin Dose 650 MG; Start 01/13/19 at 02:00 Acetaminophen/ Hydrocodone Bitart ([place] (5/325)) 1 tab Q6H PRN PO .PAIN 4-6 Last administered on 01/15/19 13:40; Admin Dose 1 TAB; Start 01/13/19 at 02:00 Atorvastatin Calcium (Lipitor) 40 mg DAILY@21 PO Last administered on 01/22/19 20:41; Admin Dose 40 MG; Start 01/13/19 at 21:00 Folic Acid (Folic Acid) 1 mg DAILY PO Last administered on 01/23/19 09:08; Admin Dose 1 MG; Start 01/13/19 at 09:00 Insulin Glargine (Lantus) 20 units QHS SC Last administered on 01/14/19 22:04; Admin Dose 20 UNITS; Start 01/13/19 at 21:00; Status Hold Aspirin (Aspirin) 81 mg DAILY PO Last administered on 01/23/19 09:08; Admin Dose 81 MG; Start 01/13/19 at 11:00 Miscellaneous Information 1 ea NOTE XX ; Start 01/13/19 at 15:30 Glucose (Glutose) 15 gm Q15M PRN PO DECREASED GLUCOSE; Start 01/13/19 at 15:30 Glucose (Glutose) 22.5 gm Q15M PRN PO DECREASED GLUCOSE; Start 01/13/19 at 15:30 Dextrose (D50w Syringe) 25 ml Q15M PRN IV DECREASED GLUCOSE; Start 01/13/19 at 15:30 Dextrose (D50w Syringe) 50 ml Q15M PRN IV DECREASED GLUCOSE; Start 01/13/19 at 15:30 Glucagon (Glucagen) 1 mg Q15M PRN IM DECREASED GLUCOSE; Start 01/13/19 at 15:30 Glucose (Glutose) 15 gm Q15M PRN BUCCAL DECREASED GLUCOSE; Start 01/13/19 at 15:30 Epoetin Cam-epbx (Retacrit (Esrd)) 4,000 unit TuThSa@1700 SC Last administered on 01/21/19 17:34; Admin Dose 4,000 UNIT; Start 01/14/19 at 17:00 Levalbuterol (Xopenex Neb) 1.25 mg Q4H RESP THERAPY PRN HHN dyspnea; Start 01/14/19 at 19:00 Ipratropium [place] (Atrovent Hfa) 4 puff Q6H RESP THERAPY INH Last administered on 01/23/19 13:31; Admin Dose 4 PUFF; Start 01/15/19 at 20:00 Famotidine (Pepcid Iv) 20 mg Q24H IV Last administered on 01/23/19 06:04; Admin Dose 20 MG; Start 01/16/19 at 06:00 Vasopressin 60 unit/Dextrose 60 ml @ 1.2 mls/hr Q12H IV Last administered on 01/18/19 05:05; Admin Dose 2.4 MLS/HR; Start 01/16/19 at 02:30 Caspofungin 35 mg/ Sodium Chloride 250 ml @ 250 mls/hr Q24H IVPB Last administered on 01/22/19 16:40; Admin Dose 250 MLS/HR; Start 01/17/19 at 15:00 Docusate Sodium (Colace Liquid Cup) 100 mg BID NGT Last administered on 01/23/19 09:08; Admin Dose 100 MG; Start 01/17/19 at 21:00 Collagenase (Santyl) 1 applic BID TOP Last administered on 01/23/19 09:09; Admin Dose 1 APPLIC; Start 01/17/19 at 21:00 Albumin Human 100 ml @ 100 mls/hr DURING DIALYSIS PRN IV BLOOD PRESSURE SUPPORT Last administered on 01/20/19 23:33; Admin Dose 100 MLS/HR; Start 01/18/19 at 11:30 Lactulose (Enulose) 20 gm BID PO Last administered on 01/23/19 09:08; Admin Dose 20 GM; Start 01/19/19 at 21:00 Metoclopramide HCl (Reglan) 5 mg Q6 IV Last administered on 01/23/19 12:42; Admin Dose 5 MG; Start 01/19/19 at 20:00 Heparin Sodium (Porcine) (Heparin (5000 Units/1ml)) 5,000 unit BID SC Last administered on 01/21/19 09:57; Admin Dose 5,000 UNIT; Start 01/21/19 at 09:00 Vancomycin HCl 1.25 gm/Sodium Chloride 250 ml @ 83.333 mls/ hr Q96H IVPB Last administered on 01/21/19at 17:32; Admin Dose 83.333 MLS/HR; Start 01/21/19 at 18:00 Amikacin Sulfate (Amikacin Iv Per Pharmacy) AMIKACIN PER PHARMACY NOTE XX ; Start 01/21/19 at 11:30 Metronidazole 100 ml @ 100 mls/hr Q8 IVPB Last administered on 01/23/19at 06:04; Admin Dose 100 MLS/HR; Start 01/21/19 at 14:00 Amikacin Sulfate 375 mg/Sodium Chloride 101.5 ml @ 101.5 mls/ hr AFTER DIALYSIS IVPB ; Start 01/22/19 at 09:00 Norepinephrine 32 mg/Dextrose 250 ml @ 0.47 mls/hr TITRATE IV Last administered on 01/23/19at 10:17; Admin Dose 6.09 MLS/HR; Start 01/23/19 at 09:30 Phenylephrine HCl 80 mg/Dextrose 250 ml @ 18.75 mls/ hr TITRATE IV Last administered on 01/23/19at 10:18; Admin Dose 30 MLS/HR; Start 01/23/19 at 09:30 Ferrous Sulfate (Feosol Liquid Cup) 300 mg BID NGT Last administered on 01/23/19at 09:22; Admin Dose 300 MG; Start 01/23/19 at 09:30 Amiodarone HCl 900 mg/Dextrose 500 ml @ 0 mls/hr Q0M IV Last administered on 01/23/19at 11:38; Admin Dose 33.3 MLS/HR; Start 01/23/19 at 11:00; Stop 01/24/19 at 10:59 Bisacodyl (Dulcolax Supp) 10 mg DAILY PRN [place] CONSTIPATION; Start 01/23/19 at 11:30 Docusate Sodium (Colace Liquid Cup) 100 mg Q12H PRN NGT CONSTIPATION; Start 01/23/19 at 11:30 Diagnostic Test (Pha) (Accu-Chek) 1 ea 02 XX ; Start 01/24/19 at 02:00 Insulin Aspart (Novolog Insulin Pen) NOVOLOG *MILD* ALGORI... Q4 SC ; Start 01/23/19 at 13:00 MAUDE ALDRIDGE MD Jan 23, 2019 14:30
[2019-01-23] MEDS: CASPOFUNGIN 35 MG in SOD CHLORIDE 0.9% 250 ML IVPB SCH (15:41)
[2019-01-23] MEDS: ATORVASTATIN 40 MG TAB PO SCH (20:28)
[2019-01-23] MEDS: HEPARIN 5,000 UNIT/1 ML VIAL SC SCH (20:30)
[2019-01-23] MEDS ORDERED: LORAZEPAM 2 MG INJ IV PRN (23:00)
[2019-01-24] VITALS (73 sets, daily range): BP systolic 78–123; BP diastolic 33–66; PULSE 98–122; RESP 19–36
[2019-01-24] MEDS: INSULIN ASPART [NOVOLOG] 3 ML PEN SC SCH ×4 (01:19→12:19)
[2019-01-24] MEDS: IPRATROPIUM (HFA) 12.9 GM INHALER INH SCH ×2 (01:26→08:58)
[2019-01-24] MEDS ORDERED: ACCU-CHEK XX SCH (02:00)
[2019-01-24] MEDS: PHENYLephrine 80 MG in DEXTROSE 5% 242 ML IV SCH ×3 (03:35→13:27)
[2019-01-24] MEDS: FAMOTIDINE 20 MG INJ IV SCH (05:38)
[2019-01-24] MEDS: METOCLOPRAMIDE 10 MG INJ IV SCH ×2 (05:39→12:09)
[2019-01-24] MEDS: metroNIDAZOLE 500 MG/NS (PMX) 100 ML IVPB SCH ×2 (05:39→13:29)
[2019-01-24] MEDS: FERROUS SULFATE 60 MG/ML 5ML CUP NGT SCH (08:51)
[2019-01-24] MEDS: FOLIC ACID 1 MG TAB PO SCH (08:51)
[2019-01-24] MEDS: LACTULOSE 30ML CUP PO SCH (08:51)
[2019-01-24] MEDS: ASPIRIN 81 MG TAB PO SCH (08:51)
[2019-01-24] MEDS: HEPARIN 5,000 UNIT/1 ML VIAL SC SCH (08:59)
[2019-01-24] MEDS: BALSAM PERU/CASTOR OIL 60 GM TUBE TOP SCH (09:01)
[2019-01-24] MEDS: COLLAGENASE 5 GM (UD JAR) TOP SCH (09:01)
[2019-01-24] MEDS: DOCUSATE SODIUM 10 MG/ML (10ML CUP) NGT SCH (09:11)
--- NOTE | 2019-01-24 09:12 | CONS ---
Assessment/Plan Assessment/Plan Hospital Course (Demo Recall) Chest x-ray showing bilateral pneumonia. Ventilator setting; AC of 20, tidal volume 500, PEEP of 5, 40% FiO2. Patient is currently on fentanyl 25 mics per hour, Precedex drip as well. Assessment and recommendations; 1. Patient admitted with severe bilateral pneumonia still requiring full me chanical ventilatory support. 2. Some element of encephalopathy. Patient however currently is sedated. 3. History of prior CABG. 4. Anemia and severe thrombocytopenia. 5. Chronic renal failure, dialysis dependent. 6. History of cardiac arrhythmia. 7. History of hypertension and diabetes. Hold further sedation to assess mental status. Continue current supportive care. Hemodialysis per it integration architect. Prognosis is guarded at this point. 35 minutes of critical care time was spent evaluating the patient. Assessment/Plan (Daily) Chest x-ray was reviewed from today which is showing extensive pneumonia mostly involving left lung with right lower lobe infiltrate as well. Diffuse emphysematous changes are present as well. Patient is currently on phenylephrine drip 300 mics per minute, Levophed 25 mics per minute, amiodarone 0.5 mg/min, patient is off vasopressin drip. Ventilator setting; AC of 20, tidal volume 500, PEEP of 5, 50% FiO2. Assessment and recommendations; 1. Patient admitted with severe pneumonia requiring intubation. 2. History of renal failure, on hemodialysis. 3. Persistent shock, with interval worsening. On multiple pressor agents. 4. History of diabetes and hypertension. 5. Chronic atrial fibrillation with RVR. On amiodarone drip currently. 6. Prior CABG. 7. COPD. 8. Encephalopathy. 9. Colitis. Continue current supportive care. Patient clinically is too unstable to undergo any fluid removal from hemodialysis. Prognosis is appearing very guarded. 35 minutes of critical care time was spent evaluating patient. CODE STATUS needs to be addressed with the family. Consultation Date/Type/Reason Admit Date/Time January 13, 2019 at 00:07 Initial Consult Date 01/17/19 Type of Consult Pulmonary/critical care Patient's condition is critical. Patient is currently sedated. Patient however has remained hemodynamically stable. General exam; elderly male, orally intubated, sedated, currently in no distress. Date/Time of Note DATE: 01/24/19 TIME: 09:08 24 HR Interval Summary Free Text/Dictation Patient condition is critical. Patient getting progressively more hypotensive and edematous. General exam; elderly male, orally intubated, unresponsive. Currently in no distress. Exam/Review of Systems Exam Vitals Vital Signs Date Temp Pulse Resp B/P (MAP) Pulse Ox O2 O2 Flow FiO2 Time Delivery Rate 01/24/19 114 08:00 01/24/19 26 94/36 (55) 100 06:45 01/24/19 Mechanical 06:00 Ventilator 01/24/19 50 05:20 01/24/19 98.7 04:00 Intake and Output 01/23/19 01/23/19 01/24/19 1515:00 23:00 07:00 IntakeIntake Total 512.38 ml 994.16 ml 580.17 ml OutputOutput Total 0 ml 0 ml 0 ml BalanceBalance 512.38 ml 994.16 ml 580.17 ml Exam H EENT exam; supple neck, no JVD. No lymphadenopathy. Midline trachea. No thyromegaly. Orally intubated. Patient has carious teeth. Pupils are small bilaterally. Chest exam; diminished breath sounds throughout. S1-S2 audible, no murmurs. Irregular rhythm. Tachycardic. There is a well-healed sternal scar. Abdomen exam; soft, no organomegaly. Bowel sounds are sluggish. Extremity exam; 3+ generalized anasarca. Patient does have multiple ecchymosis. DOOR TENDER exam; patient is unresponsive. Results Result Diagram: 01/24/19 0638 01/24/19 0517 Results 24hrs Laboratory Tests Test 01/23/19 09:13 01/23/19 12:44 01/23/19 17:28 01/23/19 20:28 Bedside Glucose 134 118 155 161 Test 01/23/19 21:45 01/24/19 01:14 01/24/19 05:17 01/24/19 05:18 Blood Gas Blood arterial Specimen Source Arterial Blood 01/23/2019 9:52: Date Drawn 00 PM Arterial Blood 7.351 pH (Temp corrected) Arterial Blood 23.9 L pCO2 (Temp correct) Arterial Blood 77.4 L pO2 (Temp corrected) Arterial Blood 12.9 L HCO3 Arterial Blood -11.2 L Base Excess Arterial Blood 92.6 L Oxygen Saturatio n Jaiden Test ACCEPTAB Arterial Blood Right Radial Gas Puncture Site Arterial 0.2 Blood Carboxyhem oglobin Arterial Blood 0.3 Methemoglobin Blood Gas A-a O2 216.3 H Differential Oxyhemoglobin 92.1 L Percent Blood Gas 37.0 Temperature Blood Gas 20.0 Respiration Rate Blood Gas Actual 31 Respiration Rate Blood Gas VENT - AC Modality FiO2 45.0 Blood Gas Tidal 500.0 Volume Blood Gas Low 5.0 PEEP Setting Blood Gas 21.0 Inspiratory Pressure Blood Gas AA Notified Whom Blood Gas 01/23/2019 10:13 Notified Time :00 PM Bedside Glucose 183 Sodium Level 137 Potassium Level 5.2 H Chloride Level 107 Carbon Dioxide 16 L Level Anion Gap 14 H Blood Urea 34 H Nitrogen Creatinine 4.81 H Est Glomerular Filtrat Rate mL/min Glucose Level 164 Calcium Level 6.9 L Phosphorus Level 6.3 H Magnesium Level 2.2 Ammonia 24 Lactic Acid 5.3 *H Level Test 01/24/19 05:41 01/24/19 06:38 01/24/19 07:40 01/24/19 08:28 Bedside Glucose 189 198 White Blood 26.1 #H Count Red Blood Count 2.69 L Hemoglobin 8.6 L Hematocrit 28.2 L Mean Corpuscular 104.8 H Volume Mean Corpuscular 32.0 Hemoglobin Mean Corpuscular 30.5 L Hemoglobin Joie nt Red Cell 18.4 H Distribution Width Platelet Count 104 L Mean Platelet 13.1 H Volume Immature 1.800 H Granulocytes % Neutrophils % Lymphocytes % Monocytes % Eosinophils % Basophils % Nucleated Red 0.4 H Blood Cells % Immature 0.460 H Granulocytes # Neutrophils # Lymphocytes # Monocytes # Eosinophils # Basophils # Nucleated Red Blood Cells # Blood Gas Blood arterial Specimen Source Arterial Blood 01/24/2019 8:25: Date Drawn 46 AM Arterial Blood 7.331 L pH (Temp corrected) Arterial Blood 28.9 L pCO2 (Temp correct) Arterial Blood 76.4 L pO2 (Temp corrected) Arterial Blood 14.9 L HCO3 Arterial Blood -9.8 L Base Excess Arterial Blood 92.2 L Oxygen Saturatio n Jaiden Test ACCEPTAB Arterial Blood Right Radial Gas Puncture Site Arterial 0.2 Blood Carboxyhem oglobin Arterial Blood 0.3 Methemoglobin Blood Gas A-a O2 247.6 H Differential Oxyhemoglobin 91.7 L Percent Blood Gas 37.0 Temperature Blood Gas 20.0 Respiration Rate Blood Gas Actual 30 Respiration Rate Blood Gas VENT - AC Modality FiO2 50.0 Blood Gas Tidal 500.0 Volume Blood Gas Low 5.0 PEEP Setting Blood Gas TM Notified Whom Blood Gas 01/24/2019 8:39: Notified Time 22 AM Medications Medication Current Medications Vancomycin HCl (Vanco Iv Per Pharmacy) VANCOMYCIN PER PHARMACY PER PROTOCOL XX ; Start 01/13/19 at 02:00 IV Flush (NS 3 ml) 3 ml PER PROTOCOL IV ; Start 01/13/19 at 02:00 Acetaminophen (Tylenol Tab) 650 mg Q6H PRN PO .PAIN 1-3 OR TEMP Last administered on 01/18/19at 08:28; Admin Dose 650 MG; Start 01/13/19 at 02:00 Acetaminophen/ Hydrocodone Bitart ([place] (5/325)) 1 tab Q6H PRN PO .PAIN 4-6 Last administered on 01/15/19 13:40; Admin Dose 1 TAB; Start 01/13/19 at 02:00 Atorvastatin Calcium (Lipitor) 40 mg DAILY@21 PO Last administered on 01/23/19at 20:28; Admin Dose 40 MG; Start 01/13/19 at 21:00 Folic Acid (Folic Acid) 1 mg DAILY PO Last administered on 01/24/19at 08:51; Admin Dose 1 MG; Start 01/13/19 at 09:00 Insulin Glargine (Lantus) 20 units QHS SC Last administered on 01/14/19at 22:04; Admin Dose 20 UNITS; Start 01/13/19 at 21:00; Status Hold Aspirin (Aspirin) 81 mg DAILY PO Last administered on 01/24/19 08:51; Admin Dose 81 MG; Start 01/13/19 at 11:00 Miscellaneous Information 1 ea NOTE XX ; Start 01/13/19 at 15:30 Glucose (Glutose) 15 gm Q15M PRN PO DECREASED GLUCOSE; Start 01/13/19 at 15:30 Glucose (Glutose) 22.5 gm Q15M PRN PO DECREASED GLUCOSE; Start 01/13/19 at 15:30 Dextrose (D50w Syringe) 25 ml Q15M PRN IV DECREASED GLUCOSE; Start 01/13/19 at 15:30 Dextrose (D50w Syringe) 50 ml Q15M PRN IV DECREASED GLUCOSE; Start 01/13/19 at 15:30 Glucagon (Glucagen) 1 mg Q15M PRN IM DECREASED GLUCOSE; Start 01/13/19 at 15:30 Glucose (Glutose) 15 gm Q15M PRN BUCCAL DECREASED GLUCOSE; Start 01/13/19 at 15:30 Epoetin Cam-epbx (Retacrit (Esrd)) 4,000 unit TuThSa@1700 SC Last administered on 01/21/19 17:34; Admin Dose 4,000 UNIT; Start 01/14/19 at 17:00 Levalbuterol (Xopenex Neb) 1.25 mg Q4H RESP THERAPY PRN HHN dyspnea; Start 01/14/19 at 19:00 Ipratropium [place] (Atrovent Hfa) 4 puff Q6H RESP THERAPY INH Last administered on 01/24/19 08:58; Admin Dose 4 PUFF; Start 01/15/19 at 20:00 Famotidine (Pepcid Iv) 20 mg Q24H IV Last administered on 01/24/19 05:38; Admin Dose 20 MG; Start 01/16/19 at 06:00 Vasopressin 60 unit/Dextrose 60 ml @ 1.2 mls/hr Q12H IV Last administered on 01/23/19 20:58; Admin Dose 1.2 MLS/HR; Start 01/16/19 at 02:30 Caspofungin 35 mg/ Sodium Chloride 250 ml @ 250 mls/hr Q24H IVPB Last administered on 01/23/19 15:41; Admin Dose 250 MLS/HR; Start 01/17/19 at 15:00 Docusate Sodium (Colace Liquid Cup) 100 mg BID NGT Last administered on 01/23/19 20:28; Admin Dose 100 MG; Start 01/17/19 at 21:00 Collagenase (Santyl) 1 applic BID TOP Last administered on 01/24/19 09:01; Admin Dose 1 APPLIC; Start 01/17/19 at 21:00 Albumin Human 100 ml @ 100 mls/hr DURING DIALYSIS PRN IV BLOOD PRESSURE SUPPORT Last administered on 01/20/19 23:33; Admin Dose 100 MLS/HR; Start 01/18/19 at 11:30 Lactulose (Enulose) 20 gm BID PO Last administered on 01/24/19 08:51; Admin Dose 20 GM; Start 01/19/19 at 21:00 Metoclopramide HCl (Reglan) 5 mg Q6 IV Last administered on 01/24/19 05:39; Admin Dose 5 MG; Start 01/19/19 at 20:00 Heparin Sodium (Porcine) (Heparin (5000 Units/1ml)) 5,000 unit BID SC Last administered on 01/24/19 08:59; Admin Dose 5,000 UNIT; Start 01/21/19 at 09:00 Vancomycin HCl 1.25 gm/Sodium Chloride 250 ml @ 83.333 mls/ hr Q96H IVPB Last administered on 01/21/19at 17:32; Admin Dose 83.333 MLS/HR; Start 01/21/19 at 18:00 Amikacin Sulfate (Amikacin Iv Per Pharmacy) AMIKACIN PER PHARMACY NOTE XX ; Start 01/21/19 at 11:30 Metronidazole 100 ml @ 100 mls/hr Q8 IVPB Last administered on 01/24/19 05:39; Admin Dose 100 MLS/HR; Start 01/21/19 at 14:00 Amikacin Sulfate 375 mg/Sodium Chloride 101.5 ml @ 101.5 mls/ hr AFTER DIALYSIS IVPB ; Start 01/22/19 at 09:00 Norepinephrine 32 mg/Dextrose 250 ml @ 0.47 mls/hr TITRATE IV Last administered on 01/23/19 10:17; Admin Dose 6.09 MLS/HR; Start 01/23/19 at 09:30 Phenylephrine HCl 80 mg/Dextrose 250 ml @ 18.75 mls/ hr TITRATE IV Last administered on 01/24/19at 09:00; Admin Dose 56.25 MLS/HR; Start 01/23/19 at 09:30 Ferrous Sulfate (Feosol Liquid Cup) 300 mg BID NGT Last administered on 01/24/19 08:51; Admin Dose 300 MG; Start 01/23/19 at 09:30 Amiodarone HCl 900 mg/Dextrose 500 ml @ 0 mls/hr Q0M IV Last administered on 01/23/19 11:38; Admin Dose 33.3 MLS/HR; Start 01/23/19 at 11:00; Stop 01/24/19 at 10:59 Bisacodyl (Dulcolax Supp) 10 mg DAILY PRN [place] CONSTIPATION; Start 01/23/19 at 11:30 Docusate Sodium (Colace Liquid Cup) 100 mg Q12H PRN NGT CONSTIPATION; Start at 11:30 Diagnostic Test (Pha) (Accu-Chek) 1 ea 02 XX Last administered on 01/24/19at 01:19; Admin Dose 1 EA; Start 01/24/19 at 02:00 Insulin Aspart (Novolog Insulin Pen) NOVOLOG *MILD* ALGORI... Q4 SC Last administered on 01/24/19 09:00; Admin Dose 2 UNIT; Start 01/23/19 at 13:00 Lorazepam (Ativan) 1 mg Q4H PRN IV AGITATION Last administered on 01/23/19at 22:51; Admin Dose 1 MG; Start 01/23/19 at 23:00 BENIGNO MOBLEY Jan 24, 2019 09:12
[2019-01-24] MEDS ORDERED: ALBUMIN HUMAN 25% 100 ML IV ONE (12:00)
[2019-01-24] MEDS: VASOPRESSIN 60 UNIT in DEXTROSE 5% 57 ML IV SCH (12:06)
--- NOTE | 2019-01-24 12:32 | CONS ---
Assessment/Plan Assessment/Plan Assessment/Plan (Daily) .1 End-stage renal disease on hemodialysis. hemodialysis Wednesday, and Wednesday via left arm AV fistula 2. shock , likely secondary to pneumonia/ cholecystitis. with elevated bilirubin , cx positive for yeast vs colitis now with worseninig pressor requirements 3. Elevated trop ? acs fu Cards 4. Hypokalemia, resolved. 5. Leukocytosis. 6. Shortness of breath, cough, weakness, leukocytosis of 26.8, likely secondary to pneumonia. with hypoxic and hypercapnic resp failure 7. Hyperbilirubinemia, abnormal liver function tests. 8. respiratory failure, likely secondary to pneumonia. 9. Hypertension, currently hypotensive 10. Dyslipidemia. 11. Diabetes. 12. Anemia chronic disease 13. encephalopathy, ALOC 14 Respiratory failure s/p intubation now on multiple abx 15 New onset AFIB WITH uncontrolled HR 16 Abnormal LFT with elevated Bili/direct/alk phos and elevation of t ransaminases ? r/o obstruction Assessment/Plan (Daily) - Pt condition is critically ill on 2 pressors and SBP 80's and is on 50% FI02 and K 5.2 and bicarb 16, ABG this am was compensated . spoke to family son at bedside and told rthem pt condition is very critical , there is high likley possibility if we do slow HD with 150 flow pt can code, family will decide and will let us know - Will support Albumin, bicarb gtt at this point - Will also give high dose of hydrocortisone to support BP - Spoke to Dr Franklin to repeat ECHO - Hold off bp meds - cw vancomycin/amikacin/flagyl and caspofungin Consultation Date/Type/Reason Admit Date/Time January 13, 2019 at 00:07 Initial Consult Date 01/15/19 Date/Time of Note DATE: 01/24/19 TIME: 12:17 24 HR Interval Summary Free Text/Dictation Pt condition is very critical current on levophed 30 Vasopressin 300 SBP 80's on 50 % fio2 Exam/Review of Systems Exam Vitals Vital Signs Date Temp Pulse Resp B/P (MAP) Pulse Ox O2 O2 Flow FiO2 Time Delivery Rate 01/24/19 104 12:00 01/24/19 25 83/38 (53) 99 10:30 01/24/19 Mechanical 10:00 Ventilator 01/24/19 50 08:00 01/24/19 98.6 08:00 Intake and Output 01/23/19 01/23/19 01/24/19 1515:00 23:00 07:00 IntakeIntake Total 512.38 ml 994.16 ml 675.98 ml OutputOutput Total 0 ml 0 ml 0 ml BalanceBalance 512.38 ml 994.16 ml 675.98 ml Exam left av fistula Constitutional: moaning ENMT: intubated Neck: supple Respiratory: diminished breath sounds Cardiovascular: irregular irregular Gastrointestinal: soft some edema legs Results Result Diagram: 01/24/19 0638 01/24/19 0517 Results 24hrs Laboratory Tests Test 01/23/19 12:44 01/23/19 17:28 01/23/19 20:28 01/23/19 21:45 Bedside Glucose 118 155 161 Blood Gas Blood arterial Specimen Source Arterial Blood 01/23/2019 9:52: Date Drawn 00 PM Arterial Blood 7.351 pH (Temp corrected) Arterial Blood 23.9 L pCO2 (Temp correct) Arterial Blood 77.4 L pO2 (Temp corrected) Arterial Blood 12.9 L HCO3 Arterial Blood -11.2 L Base Excess Arterial Blood 92.6 L Oxygen Saturatio n Jaiden Test ACCEPTAB Arterial Blood Right Radial Gas Puncture Site Arterial 0.2 Blood Carboxyhem oglobin Arterial Blood 0.3 Methemoglobin Blood Gas A-a O2 216.3 H Differential Oxyhemoglobin 92.1 L Percent Blood Gas 37.0 Temperature Blood Gas 20.0 Respiration Rate Blood Gas Actual 31 Respiration Rate Blood Gas VENT - AC Modality FiO2 45.0 Blood Gas Tidal 500.0 Volume Blood Gas Low 5.0 PEEP Setting Blood Gas 21.0 Inspiratory Pressure Blood Gas AA Notified Whom Blood Gas 01/23/2019 10:13 Notified Time :00 PM Test 01/24/19 01:14 01/24/19 05:17 01/24/19 05:18 01/24/19 05:41 Bedside Glucose 183 189 Sodium Level 137 Potassium Level 5.2 H Chloride Level 107 Carbon Dioxide 16 L Level Anion Gap 14 H Blood Urea 34 H Nitrogen Creatinine 4.81 H Est Glomerular Filtrat Rate mL/min Glucose Level 164 Calcium Level 6.9 L Phosphorus Level 6.3 H Magnesium Level 2.2 Ammonia 24 Lactic Acid 5.3 *H Level Test 01/24/19 06:38 01/24/19 07:40 01/24/19 08:28 01/24/19 09:35 White Blood 26.1 #H Count Red Blood Count 2.69 L Hemoglobin 8.6 L Hematocrit 28.2 L Mean Corpuscular 104.8 H Volume Mean Corpuscular 32.0 Hemoglobin Mean Corpuscular 30.5 L Hemoglobin Joie nt Red Cell 18.4 H Distribution Width Platelet Count 104 L Mean Platelet 13.1 H Volume Immature 1.800 H Granulocytes % Neutrophils % Segmented 78 H Neutrophils % (Manual) Band Neutrophils 5 H % (Manual) Lymphocytes % Lymphocytes % 11 L (Manual) Monocytes % Monocytes % 6 (Manual) Eosinophils % Basophils % Nucleated Red 0.4 H Blood Cells % Immature 0.460 H Granulocytes # Neutrophils # Neutrophils # 20.7 H (Manual) Band Neutrophils 1.3 H # Lymphocytes 2.8 (Manual) Lymphocytes # Monocytes # Monocytes # 1.5 H (Manual) Eosinophils # Basophils # Nucleated Red Blood Cells # Platelet NORMAL Estimate Polychromasia 3+ Poikilocytosis 2+ Anisocytosis 2+ Macrocytosis 1+ Blood Gas Blood arterial Specimen Source Arterial Blood 01/24/2019 8:25: Date Drawn 46 AM Arterial Blood 7.331 L pH (Temp corrected) Arterial Blood 28.9 L pCO2 (Temp correct) Arterial Blood 76.4 L pO2 (Temp corrected) Arterial Blood 14.9 L HCO3 Arterial Blood -9.8 L Base Excess Arterial Blood 92.2 L Oxygen Saturatio n Jaiden Test ACCEPTAB Arterial Blood Right Radial Gas Puncture Site Arterial 0.2 Blood Carboxyhem oglobin Arterial Blood 0.3 Methemoglobin Blood Gas A-a O2 247.6 H Differential Oxyhemoglobin 91.7 L Percent Blood Gas 37.0 Temperature Blood Gas 20.0 Respiration Rate Blood Gas Actual 30 Respiration Rate Blood Gas VENT - AC Modality FiO2 50.0 Blood Gas Tidal 500.0 Volume Blood Gas Low 5.0 PEEP Setting Blood Gas TM Notified Whom Blood Gas 01/24/2019 8:39: Notified Time 22 AM Bedside Glucose 198 Lab Scanned REFERENCE LAB Report Test 01/24/19 12:13 Bedside Glucose 210 Medications Medication Current Medications Vancomycin HCl (Vanco Iv Per Pharmacy) VANCOMYCIN PER PHARMACY PER PROTOCOL XX ; Start 01/13/19 at 02:00 IV Flush (NS 3 ml) 3 ml PER PROTOCOL IV ; Start 01/13/19 at 02:00 Acetaminophen (Tylenol Tab) 650 mg Q6H PRN PO .PAIN 1-3 OR TEMP Last administered on 01/18/19 08:28; Admin Dose 650 MG; Start 01/13/19 at 02:00 Acetaminophen/ Hydrocodone Bitart ([place] (5/325)) 1 tab Q6H PRN PO .PAIN 4-6 Last administered on 01/15/19 13:40; Admin Dose 1 TAB; Start 01/13/19 at 02:00 Atorvastatin Calcium (Lipitor) 40 mg DAILY@21 PO Last administered on 01/23/19 20:28; Admin Dose 40 MG; Start 01/13/19 at 21:00 Folic Acid (Folic Acid) 1 mg DAILY PO Last administered on 01/24/19 08:51; Admin Dose 1 MG; Start 01/13/19 at 09:00 Insulin Glargine (Lantus) 20 units QHS SC Last administered on 01/14/19 22:04; Admin Dose 20 UNITS; Start 01/13/19 at 21:00; Status Hold Aspirin (Aspirin) 81 mg DAILY PO Last administered on 01/24/19 08:51; Admin Dose 81 MG; Start 01/13/19 at 11:00 Miscellaneous Information 1 ea NOTE XX ; Start 01/13/19 at 15:30 Glucose (Glutose) 15 gm Q15M PRN PO DECREASED GLUCOSE; Start 01/13/19 at 15:30 Glucose (Glutose) 22.5 gm Q15M PRN PO DECREASED GLUCOSE; Start 01/13/19 at 15:30 Dextrose (D50w Syringe) 25 ml Q15M PRN IV DECREASED GLUCOSE; Start 01/13/19 at 15:30 Dextrose (D50w Syringe) 50 ml Q15M PRN IV DECREASED GLUCOSE; Start 01/13/19 at 15:30 Glucagon (Glucagen) 1 mg Q15M PRN IM DECREASED GLUCOSE; Start 01/13/19 at 15:30 Glucose (Glutose) 15 gm Q15M PRN BUCCAL DECREASED GLUCOSE; Start 01/13/19 at 15:30 Epoetin Cam-epbx (Retacrit (Esrd)) 4,000 unit TuThSa@1700 SC Last administered on 01/21/19 17:34; Admin Dose 4,000 UNIT; Start 01/14/19 at 17:00 Levalbuterol (Xopenex Neb) 1.25 mg Q4H RESP THERAPY PRN HHN dyspnea; Start 01/14/19 at 19:00 Ipratropium [place] (Atrovent Hfa) 4 puff Q6H RESP THERAPY INH Last administe red on 01/24/19 08:58; Admin Dose 4 PUFF; Start 01/15/19 at 20:00 Famotidine (Pepcid Iv) 20 mg Q24H IV Last administered on 01/24/19 05:38; Admin Dose 20 MG; Start 01/16/19 at 06:00 Vasopressin 60 unit/Dextrose 60 ml @ 1.2 mls/hr Q12H IV Last administered on 01/23/19 20:58; Admin Dose 1.2 MLS/HR; Start 01/16/19 at 02:30 Caspofungin 35 mg/ Sodium Chloride 250 ml @ 250 mls/hr Q24H IVPB Last adm inistered on 01/23/19 15:41; Admin Dose 250 MLS/HR; Start 01/17/19 at 15:00 Docusate Sodium (Colace Liquid Cup) 100 mg BID NGT Last administered on 01/24/19 09:11; Admin Dose 100 MG; Start 01/17/19 at 21:00 Collagenase (Santyl) 1 applic BID TOP Last administered on 01/24/19 09:01; Admin Dose 1 APPLIC; Start 01/17/19 at 21:00 Albumin Human 100 ml @ 100 mls/hr DURING DIALYSIS PRN IV BLOOD PRESSURE SUPPORT Last administered on 01/20/19 23:33; Admin Dose 100 MLS/HR; Start 01/18/19 at 11:30 Lactulose (Enulose) 20 gm BID PO Last administered on 01/24/19 08:51; Admin Dose 20 GM; Start 01/19/19 at 21:00 Metoclopramide HCl (Reglan) 5 mg Q6 IV Last administered on 01/24/19 05:39; Admin Dose 5 MG; Start 01/19/19 at 20:00 Heparin Sodium (Porcine) (Heparin (5000 Units/1ml)) 5,000 unit BID SC Last administered on 01/24/19 08:59; Admin Dose 5,000 UNIT; Start 01/21/19 at 09:00 Vancomycin HCl 1.25 gm/Sodium Chloride 250 ml @ 83.333 mls/ hr Q96H IVPB Last administered on 01/21/19at 17:32; Admin Dose 83.333 MLS/HR; Start 01/21/19 at 18:00 Amikacin Sulfate (Amikacin Iv Per Pharmacy) AMIKACIN PER PHARMACY NOTE XX ; Start 01/21/19 at 11:30 Metronidazole 100 ml @ 100 mls/hr Q8 IVPB Last administered on 01/24/19at 05:39; Admin Dose 100 MLS/HR; Start 01/21/19 at 14:00 Amikacin Sulfate 375 mg/Sodium Chloride 101.5 ml @ 101.5 mls/ hr AFTER DIALYSIS IVPB ; Start 01/22/19 at 09:00 Norepinephrine 32 mg/Dextrose 250 ml @ 0.47 mls/hr TITRATE IV Last administered on 01/23/19at 10:17; Admin Dose 6.09 MLS/HR; Start 01/23/19 at 09:30 Phenylephrine HCl 80 mg/Dextrose 250 ml @ 18.75 mls/ hr TITRATE IV Last administered on 01/24/19at 09:00; Admin Dose 56.25 MLS/HR; Start 01/23/19 at 09:30 Ferrous Sulfate (Feosol Liquid Cup) 300 mg BID NGT Last administered on 01/24/19at 08:51; Admin Dose 300 MG; Start 01/23/19 at 09:30 Bisacodyl (Dulcolax Supp) 10 mg DAILY PRN [place] CONSTIPATION; Start 01/23/19 at 11:30 Docusate Sodium (Colace Liquid Cup) 100 mg Q12H PRN NGT CONSTIPATION; Start 01/23/19 at 11:30 Diagnostic Test (Pha) (Accu-Chek) 1 ea 02 XX Last administered on 01/24/19at 01:19; Admin Dose 1 EA; Start 01/24/19 at 02:00 Insulin Aspart (Novolog Insulin Pen) NOVOLOG *MILD* ALGORI... Q4 SC Last adm inistered on 01/24/19at 09:00; Admin Dose 2 UNIT; Start 01/23/19 at 13:00 Sodium Bicarbonate 50 meq/Dextrose 1,000 ml @ 40 mls/hr Q24H IV ; Start 01/24/19 at 13:00 Albumin Human 100 ml @ 100 mls/hr ONCE ONCE IV ; Start 01/24/19 at 12:00; Stop 01/24/19 at 12:59 Hydrocortisone (Solu-Cortef) 100 mg Q8 IV ; Start 01/24/19 at 14:00 JUAN NOLAND MD Jan 24, 2019 12:31
[2019-01-24] MEDS ORDERED: HYDROCORTISONE 100 MG INJ IV SCH (13:00)
[2019-01-24] MEDS ORDERED: NA BICARBONATE 8.4% 50 ML SYG IV ONE (13:00)
[2019-01-24] MEDS ORDERED: SODIUM BICARBONATE (IV ADD) 50 MEQ in DEXTROSE 5% 1,000 ML IV SCH (13:00)
[2019-01-24] MEDS ORDERED: ALBUMIN HUMAN 25% 100 ML IV SCH (13:00)
--- NOTE | 2019-01-24 13:20 | CONS ---
Assessment/Plan Assessment/Plan Hospital Course (Demo Recall) Patient decompensated overnight currently on triple pressors with a blood pressure remains low. No fevers. WBC 26.1 H&H 8.6 and 28.2 platelets 104 Chest x-ray revealed persistent severe patchy infiltration throughout the left lung Antimicrobials: Vancomycin, amikacin, Flagyl, Cancidas Microbiology: Sputum culture growing yeast, not Rhea albicans 01/17/19 CT abdomen pelvis without contrast revealed diffuse colitis. Cholelithiasis without evidence for cholecystitis. Nonspecific patchy bibasilar pulmonary consolidation. Please see full report in the chart Indwelling's endotracheal tube, NG tube, right IJ triple-lumen catheter, left upper extremity AV fistula Physical examination: Chronically ill-appearing elderly man who is intubated sedated in no distress. Head atraumatic normocephalic sclera nonicteric vehicle mucosa dry. Neck is supple chest rise symmetrical breath sounds diminished bases. Heart: S1-S2. Abdomen soft bowel sounds present. Extremities with bilateral edema. Assessment: 1. Severe sepsis with shock ?biliary 2. Acute hypoxemic respiratory failure/CHF exacerbation 3. Healthcare associated pneumonia possibly aspirated 4. Colitis 5. End-stage renal disease, hemodialysis dependent 6. Coronary artery disease 7. Transaminitis with elevated total bilirubin, poss obstruction Plan: Patient is doing poorly despite broad-spectrum coverage, continue present care, family to decide regarding final plan of care Consultation Date/Type/Reason Admit Date/Time January 13, 2019 at 00:07 Initial Consult Date 01/15/19 Type of Consult id Date/Time of Note DATE: 01/24/19 TIME: 13:18 Exam/Review of Systems Exam Vitals Vital Signs Date Temp Pulse Resp B/P (MAP) Pulse Ox O2 O2 Flow FiO2 Time Delivery Rate 01/24/19 103 27 86/38 (54) 12:30 01/24/19 95 12:15 01/24/19 98.7 Mechanical 12:00 Ventilator 01/24/19 50 12:00 Intake and Output 01/23/19 01/23/19 01/24/19 1515:00 23:00 07:00 IntakeIntake Total 512.38 ml 994.16 ml 675.98 ml OutputOutput Total 0 ml 0 ml 0 ml BalanceBalance 512.38 ml 994.16 ml 675.98 ml Results Result Diagram: 01/24/19 0638 01/24/19 0517 Results 24hrs Laboratory Tests Test 01/23/19 17:28 01/23/19 20:28 01/23/19 21:45 01/24/19 01:14 Bedside Glucose 155 161 183 Blood Gas Blood arterial Specimen Source Arterial Blood 01/23/2019 9:52: Date Drawn 00 PM Arterial Blood 7.351 pH (Temp corrected) Arterial Blood 23.9 L pCO2 (Temp correct) Arterial Blood 77.4 L pO2 (Temp corrected) Arterial Blood 12.9 L HCO3 Arterial Blood -11.2 L Base Excess Arterial Blood 92.6 L Oxygen Saturatio n Jaiden Test ACCEPTAB Arterial Blood Right Radial Gas Puncture Site Arterial 0.2 Blood Carboxyhem oglobin Arterial Blood 0.3 Methemoglobin Blood Gas A-a O2 216.3 H Differential Oxyhemoglobin 92.1 L Percent Blood Gas 37.0 Temperature Blood Gas 20.0 Respiration Rate Blood Gas Actual 31 Respiration Rate Blood Gas VENT - AC Modality FiO2 45.0 Blood Gas Tidal 500.0 Volume Blood Gas Low 5.0 PEEP Setting Blood Gas 21.0 Inspiratory Pressure Blood Gas AA Notified Whom Blood Gas 01/23/2019 10:13 Notified Time :00 PM Test 01/24/19 05:17 01/24/19 05:18 01/24/19 05:41 01/24/19 06:38 Sodium Level 137 Potassium Level 5.2 H Chloride Level 107 Carbon Dioxide 16 L Level Anion Gap 14 H Blood Urea 34 H Nitrogen Creatinine 4.81 H Est Glomerular Filtrat Rate mL/min Glucose Level 164 Calcium Level 6.9 L Phosphorus Level 6.3 H Magnesium Level 2.2 Ammonia 24 Lactic Acid 5.3 *H Level Bedside Glucose 189 White Blood 26.1 #H Count Red Blood Count 2.69 L Hemoglobin 8.6 L Hematocrit 28.2 L Mean Corpuscular 104.8 H Volume Mean Corpuscular 32.0 Hemoglobin Mean Corpuscular 30.5 L Hemoglobin Joie nt Red Cell 18.4 H Distribution Width Platelet Count 104 L Mean Platelet 13.1 H Volume Immature 1.800 H Granulocytes % Neutrophils % Segmented 78 H Neutrophils % (Manual) Band Neutrophils 5 H % (Manual) Lymphocytes % Lymphocytes % 11 L (Manual) Monocytes % Monocytes % 6 (Manual) Eosinophils % Basophils % Nucleated Red 0.4 H Blood Cells % Immature 0.460 H Granulocytes # Neutrophils # Neutrophils # 20.7 H (Manual) Band Neutrophils 1.3 H # Lymphocytes 2.8 (Manual) Lymphocytes # Monocytes # Monocytes # 1.5 H (Manual) Eosinophils # Basophils # Nucleated Red Blood Cells # Platelet NORMAL Estimate Polychromasia 3+ Poikilocytosis 2+ Anisocytosis 2+ Macrocytosis 1+ Test 01/24/19 07:40 01/24/19 08:28 01/24/19 09:35 01/24/19 12:13 Blood Gas Blood arterial Specimen Source Arterial Blood 01/24/2019 8:25: Date Drawn 46 AM Arterial Blood 7.331 L pH (Temp corrected) Arterial Blood 28.9 L pCO2 (Temp correct) Arterial Blood 76.4 L pO2 (Temp corrected) Arterial Blood 14.9 L HCO3 Arterial Blood -9.8 L Base Excess Arterial Blood 92.2 L Oxygen Saturatio n Jaiden Test ACCEPTAB Arterial Blood Right Radial Gas Puncture Site Arterial 0.2 Blood Carboxyhem oglobin Arterial Blood 0.3 Methemoglobin Blood Gas A-a O2 247.6 H Differential Oxyhemoglobin 91.7 L Percent Blood Gas 37.0 Temperature Blood Gas 20.0 Respiration Rate Blood Gas Actual 30 Respiration Rate Blood Gas VENT - AC Modality FiO2 50.0 Blood Gas Tidal 500.0 Volume Blood Gas Low 5.0 PEEP Setting Blood Gas TM Notified Whom Blood Gas 01/24/2019 8:39: Notified Time 22 AM Bedside Glucose 198 210 Lab Scanned REFERENCE LAB Report Medications Medication Current Medications Vancomycin HCl (Vanco Iv Per Pharmacy) VANCOMYCIN PER PHARMACY PER PROTOCOL XX ; Start 01/13/19 at 02:00 IV Flush (NS 3 ml) 3 ml PER PROTOCOL IV ; Start 01/13/19 at 02:00 Acetaminophen (Tylenol Tab) 650 mg Q6H PRN PO .PAIN 1-3 OR TEMP Last administered on 01/18/19 08:28; Admin Dose 650 MG; Start 01/13/19 at 02:00 Acetaminophen/ Hydrocodone Bitart ([place] (5/325)) 1 tab Q6H PRN PO .PAIN 4-6 Last administered on 01/15/19 13:40; Admin Dose 1 TAB; Start 01/13/19 at 02:00 Atorvastatin Calcium (Lipitor) 40 mg DAILY@21 PO Last administered on 01/23/19 20:28; Admin Dose 40 MG; Start 01/13/19 at 21:00 Folic Acid (Folic Acid) 1 mg DAILY PO Last administered on 01/24/19at 08:51; Admin Dose 1 MG; Start 01/13/19 at 09:00 Insulin Glargine (Lantus) 20 units QHS SC Last administered on 01/14/19at 22:04; Admin Dose 20 UNITS; Start 01/13/19 at 21:00; Status Hold Aspirin (Aspirin) 81 mg DAILY PO Last administered on 01/24/19at 08:51; Admin Dose 81 MG; Start 01/13/19 at 11:00 Miscellaneous Information 1 ea NOTE XX ; Start 01/13/19 at 15:30 Glucose (Glutose) 15 gm Q15M PRN PO DECREASED GLUCOSE; Start 01/13/19 at 15:30 Glucose (Glutose) 22.5 gm Q15M PRN PO DECREASED GLUCOSE; Start 01/13/19 at 15:30 Dextrose (D50w Syringe) 25 ml Q15M PRN IV DECREASED GLUCOSE; Start 01/13/19 at 15:30 Dextrose (D50w Syringe) 50 ml Q15M PRN IV DECREASED GLUCOSE; Start 01/13/19 at 15:30 Glucagon (Glucagen) 1 mg Q15M PRN IM DECREASED GLUCOSE; Start 01/13/19 at 15:30 Glucose (Glutose) 15 gm Q15M PRN BUCCAL DECREASED GLUCOSE; Start 01/13/19 at 15:30 Epoetin Cam-epbx (Retacrit (Esrd)) 4,000 unit TuThSa@1700 SC Last administered on 01/21/19at 17:34; Admin Dose 4,000 UNIT; Start 01/14/19 at 17:00 Levalbuterol (Xopenex Neb) 1.25 mg Q4H RESP THERAPY PRN HHN dyspnea; Start 01/14/19 at 19:00 Ipratropium [place] (Atrovent Hfa) 4 puff Q6H RESP THERAPY INH Last administered on 01/24/19at 08:58; Admin Dose 4 PUFF; Start 01/15/19 at 20:00 Famotidine (Pepcid Iv) 20 mg Q24H IV Last administered on 01/24/19at 05:38; Admin Dose 20 MG; Start 01/16/19 at 06:00 Vasopressin 60 unit/Dextrose 60 ml @ 1.2 mls/hr Q12H IV Last administered on 01/24/19 12:06; Admin Dose 1.2 MLS/HR; Start 01/16/19 at 02:30 Caspofungin 35 mg/ Sodium Chloride 250 ml @ 250 mls/hr Q24H IVPB Last admini stered on 01/23/19 15:41; Admin Dose 250 MLS/HR; Start 01/17/19 at 15:00 Docusate Sodium (Colace Liquid Cup) 100 mg BID NGT Last administered on 01/24/19 09:11; Admin Dose 100 MG; Start 01/17/19 at 21:00 Collagenase (Santyl) 1 applic BID TOP Last administered on 01/24/19 09:01; Admin Dose 1 APPLIC; Start 01/17/19 at 21:00 Albumin Human 100 ml @ 100 mls/hr DURING DIALYSIS PRN IV BLOOD PRESSURE SUPPORT Last administered on 01/20/19 23:33; Admin Dose 100 MLS/HR; Start 01/18/19 at 11:30 Lactulose (Enulose) 20 gm BID PO Last administered on 01/24/19 08:51; Admin Dose 20 GM; Start 01/19/19 at 21:00 Metoclopramide HCl (Reglan) 5 mg Q6 IV Last administered on 01/24/19 12:09; Admin Dose 5 MG; Start 01/19/19 at 20:00 Heparin Sodium (Porcine) (Heparin (5000 Units/1ml)) 5,000 unit BID SC Last ad ministered on 01/24/19 08:59; Admin Dose 5,000 UNIT; Start 01/21/19 at 09:00 Vancomycin HCl 1.25 gm/Sodium Chloride 250 ml @ 83.333 mls/ hr Q96H IVPB Last administered on 01/21/19 17:32; Admin Dose 83.333 MLS/HR; Start 01/21/19 at 18:00 Amikacin Sulfate (Amikacin Iv Per Pharmacy) AMIKACIN PER PHARMACY NOTE XX ; Start 01/21/19 at 11:30 Metronidazole 100 ml @ 100 mls/hr Q8 IVPB Last administered on 01/24/19 05:39; Admin Dose 100 MLS/HR; Start 01/21/19 at 14:00 Amikacin Sulfate 375 mg/Sodium Chloride 101.5 ml @ 101.5 mls/ hr AFTER DIALYSIS IVPB ; Start 01/22/19 at 09:00 Norepinephrine 32 mg/Dextrose 250 ml @ 0.47 mls/hr TITRATE IV Last administered on 01/23/19at 10:17; Admin Dose 6.09 MLS/HR; Start 01/23/19 at 09:30 Phenylephrine HCl 80 mg/Dextrose 250 ml @ 18.75 mls/ hr TITRATE IV Last administered on 01/24/19at 09:00; Admin Dose 56.25 MLS/HR; Start 01/23/19 at 09:30 Ferrous Sulfate (Feosol Liquid Cup) 300 mg BID NGT Last administered on 01/24/19at 08:51; Admin Dose 300 MG; Start 01/23/19 at 09:30 Bisacodyl (Dulcolax Supp) 10 mg DAILY PRN [place] CONSTIPATION; Start 01/23/19 at 11:30 Docusate Sodium (Colace Liquid Cup) 100 mg Q12H PRN NGT CONSTIPATION; Start 01/23/19 at 11:30 Diagnostic Test (Pha) (Accu-Chek) 1 ea 02 XX Last administered on 01/24/19at 01:19; Admin Dose 1 EA; Start 01/24/19 at 02:00 Insulin Aspart (Novolog Insulin Pen) NOVOLOG *MILD* ALGORI... Q4 SC Last admini stered on 01/24/19at 12:19; Admin Dose 2 UNIT; Start 01/23/19 at 13:00 Sodium Bicarbonate 50 meq/Dextrose 1,000 ml @ 40 mls/hr Q24H IV ; Start 01/24/19 at 13:00 Hydrocortisone (Solu-Cortef) 100 mg Q8 IV ; Start 01/24/19 at 13:00 Albumin Human 100 ml @ 100 mls/hr Q8H IV ; Start 01/24/19 at 13:00; Stop 01/25/19 at 05:59 REJI RUBIO NP Jan 24, 2019 13:20
--- NOTE | 2019-01-24 14:27 | PN ---
Date/Time of Note Date/Time of Note DATE: 01/24/19 TIME: 14:26 Assessment/Plan VTE Prophylaxis Risk score (from Ns)>0 risk: 10 SCD applied (from Ns): Yes Pharmacological prophylaxis: other (scds) Lines/Catheters IV Catheter Type (from Nrsg): Central Line Central line still needed: Yes (meds) Urinary Cath still in place: No Assessment/Plan Hospital Course Assessment: Elevated LFTs with direct hyperbilirubinemia- improving -Hepatitis serologies negative -No biliary dilatation, on CT scan -ASMA/AMA- negative -SAÚL positive Imaging concerning for cirrhosis -Mild ascites -Thrombocytopenia -Coagulopathy Normocytic anemia Mild diffuse colitis on imaging - no diarrhea -KUB- no obstruction -CT- No bowel obstruction. Leukocytosis- trending down Healthcare associated pneumonia Hypoxic respiratory failure -intubated on MV NSTEMI, type II Coronary artery disease -History of CABG ESRD DM HTN Plan: Family discussing possibility for comfort measures if family agrees to comfort measures- GI will sign off. Patient seen in collaboration with Dr. Resendez Subjective: Course reviewed with nursing staff Patient interviewed and examined All labs, imaging and other results reviewed Family at bedside, Overall condition is declining. Patient now not stable for HD, he currently multiple pressors Poor prognosis PHYSICAL EXAMINATION: GENERAL: Intubated, sedation, on pressors, jaundice, OG in place. SKIN: No lesions, CHEST: Inspection within normal limits. CARDIOVASCULAR: Heart: Regular rate and rhythm RESPIRATORY: Lungs clear to auscultation and percussion, no wheezing, no rubs GASTROINTESTINAL AND LIVER: Abdomen: Soft, non tenderness, non-distended, no hernias, no guarding, no rebound tenderness, hypoactive bowel sounds. Rectal: Deferred. EXTREMITIES: No cyanosis, clubbing or edema. Result Diagram: 01/24/19 0638 01/24/19 0517 Results 24hrs Laboratory Tests Test 01/23/19 17:28 01/23/19 20:28 01/23/19 21:45 01/24/19 01:14 Bedside Glucose 155 161 183 Blood Gas Blood arterial Specimen Source Arterial Blood 01/23/2019 9:52: Date Drawn 00 PM Arterial Blood 7.351 pH (Temp corrected) Arterial Blood 23.9 L pCO2 (Temp correct) Arterial Blood 77.4 L pO2 (Temp corrected) Arterial Blood 12.9 L HCO3 Arterial Blood -11.2 L Base Excess Arterial Blood 92.6 L Oxygen Saturatio n Jaiden Test ACCEPTAB Arterial Blood Right Radial Gas Puncture Site Arterial 0.2 Blood Carboxyhem oglobin Arterial Blood 0.3 Methemoglobin Blood Gas A-a O2 216.3 H Differential Oxyhemoglobin 92.1 L Percent Blood Gas 37.0 Temperature Blood Gas 20.0 Respiration Rate Blood Gas Actual 31 Respiration Rate Blood Gas VENT - AC Modality FiO2 45.0 Blood Gas Tidal 500.0 Volume Blood Gas Low 5.0 PEEP Setting Blood Gas 21.0 Inspiratory Pressure Blood Gas AA Notified Whom Blood Gas 01/23/2019 10:13 Notified Time :00 PM Test 01/24/19 05:17 01/24/19 05:18 01/24/19 05:41 01/24/19 06:38 Sodium Level 137 Potassium Level 5.2 H Chloride Level 107 Carbon Dioxide 16 L Level Anion Gap 14 H Blood Urea 34 H Nitrogen Creatinine 4.81 H Est Glomerular Filtrat Rate mL/min Glucose Level 164 Calcium Level 6.9 L Phosphorus Level 6.3 H Magnesium Level 2.2 Ammonia 24 Lactic Acid 5.3 *H Level Bedside Glucose 189 White Blood 26.1 #H Count Red Blood Count 2.69 L Hemoglobin 8.6 L Hematocrit 28.2 L Mean Corpuscular 104.8 H Volume Mean Corpuscular 32.0 Hemoglobin Mean Corpuscular 30.5 L Hemoglobin Joie nt Red Cell 18.4 H Distribution Width Platelet Count 104 L Mean Platelet 13.1 H Volume Immature 1.800 H Granulocytes % Neutrophils % Segmented 78 H Neutrophils % (Manual) Band Neutrophils 5 H % (Manual) Lymphocytes % Lymphocytes % 11 L (Manual) Monocytes % Monocytes % 6 (Manual) Eosinophils % Basophils % Nucleated Red 0.4 H Blood Cells % Immature 0.460 H Granulocytes # Neutrophils # Neutrophils # 20.7 H (Manual) Band Neutrophils 1.3 H # Lymphocytes 2.8 (Manual) Lymphocytes # Monocytes # Monocytes # 1.5 H (Manual) Eosinophils # Basophils # Nucleated Red Blood Cells # Platelet NORMAL Estimate Polychromasia 3+ Poikilocytosis 2+ Anisocytosis 2+ Macrocytosis 1+ Test 01/24/19 07:40 01/24/19 08:28 01/24/19 09:35 01/24/19 12:13 Blood Gas Blood arterial Specimen Source Arterial Blood 01/24/2019 8:25: Date Drawn 46 AM Arterial Blood 7.331 L pH (Temp corrected) Arterial Blood 28.9 L pCO2 (Temp correct) Arterial Blood 76.4 L pO2 (Temp corrected) Arterial Blood 14.9 L HCO3 Arterial Blood -9.8 L Base Excess Arterial Blood 92.2 L Oxygen Saturatio n Jaiden Test ACCEPTAB Arterial Blood Right Radial Gas Puncture Site Arterial 0.2 Blood Carboxyhem oglobin Arterial Blood 0.3 Methemoglobin Blood Gas A-a O2 247.6 H Differential Oxyhemoglobin 91.7 L Percent Blood Gas 37.0 Temperature Blood Gas 20.0 Respiration Rate Blood Gas Actual 30 Respiration Rate Blood Gas VENT - AC Modality FiO2 50.0 Blood Gas Tidal 500.0 Volume Blood Gas Low 5.0 PEEP Setting Blood Gas TM Notified Whom Blood Gas 01/24/2019 8:39: Notified Time 22 AM Bedside Glucose 198 210 Lab Scanned REFERENCE LAB Report Exam/Review of Systems Exam Vitals Vital Signs Date Temp Pulse Resp B/P (MAP) Pulse Ox O2 O2 Flow FiO2 Time Delivery Rate 01/24/19 103 27 86/38 (54) 12:30 01/24/19 95 12:15 01/24/19 98.7 Mechanical 12:00 Ventilator 01/24/19 50 12:00 Intake and Output 01/23/19 01/23/19 01/24/19 1515:00 23:00 07:00 IntakeIntake Total 512.38 ml 994.16 ml 675.98 ml OutputOutput Total 0 ml 0 ml 0 ml BalanceBalance 512.38 ml 994.16 ml 675.98 ml Results Results 24hrs Laboratory Tests Test 01/23/19 17:28 01/23/19 20:28 01/23/19 21:45 01/24/19 01:14 Bedside Glucose 155 161 183 Blood Gas Blood arterial Specimen Source Arterial Blood 01/23/2019 9:52: Date Drawn 00 PM Arterial Blood 7.351 pH (Temp corrected) Arterial Blood 23.9 L pCO2 (Temp correct) Arterial Blood 77.4 L pO2 (Temp corrected) Arterial Blood 12.9 L HCO3 Arterial Blood -11.2 L Base Excess Arterial Blood 92.6 L Oxygen Saturatio n Jaiden Test ACCEPTAB Arterial Blood Right Radial Gas Puncture Site Arterial 0.2 Blood Carboxyhem oglobin Arterial Blood 0.3 Methemoglobin Blood Gas A-a O2 216.3 H Differential Oxyhemoglobin 92.1 L Percent Blood Gas 37.0 Temperature Blood Gas 20.0 Respiration Rate Blood Gas Actual 31 Respiration Rate Blood Gas VENT - AC Modality FiO2 45.0 Blood Gas Tidal 500.0 Volume Blood Gas Low 5.0 PEEP Setting Blood Gas 21.0 Inspiratory Pressure Blood Gas AA Notified Whom Blood Gas 01/23/2019 10:13 Notified Time :00 PM Test 01/24/19 05:17 01/24/19 05:18 01/24/19 05:41 01/24/19 06:38 Sodium Level 137 Potassium Level 5.2 H Chloride Level 107 Carbon Dioxide 16 L Level Anion Gap 14 H Blood Urea 34 H Nitrogen Creatinine 4.81 H Est Glomerular Filtrat Rate mL/min Glucose Level 164 Calcium Level 6.9 L Phosphorus Level 6.3 H Magnesium Level 2.2 Ammonia 24 Lactic Acid 5.3 *H Level Bedside Glucose 189 White Blood 26.1 #H Count Red Blood Count 2.69 L Hemoglobin 8.6 L Hematocrit 28.2 L Mean Corpuscular 104.8 H Volume Mean Corpuscular 32.0 Hemoglobin Mean Corpuscular 30.5 L Hemoglobin Joie nt Red Cell 18.4 H Distribution Width Platelet Count 104 L Mean Platelet 13.1 H Volume Immature 1.800 H Granulocytes % Neutrophils % Segmented 78 H Neutrophils % (Manual) Band Neutrophils 5 H % (Manual) Lymphocytes % Lymphocytes % 11 L (Manual) Monocytes % Monocytes % 6 (Manual) Eosinophils % Basophils % Nucleated Red 0.4 H Blood Cells % Immature 0.460 H Granulocytes # Neutrophils # Neutrophils # 20.7 H (Manual) Band Neutrophils 1.3 H # Lymphocytes 2.8 (Manual) Lymphocytes # Monocytes # Monocytes # 1.5 H (Manual) Eosinophils # Basophils # Nucleated Red Blood Cells # Platelet NORMAL Estimate Polychromasia 3+ Poikilocytosis 2+ Anisocytosis 2+ Macrocytosis 1+ Test 01/24/19 07:40 01/24/19 08:28 01/24/19 09:35 01/24/19 12:13 Blood Gas Blood arterial Specimen Source Arterial Blood 01/24/2019 8:25: Date Drawn 46 AM Arterial Blood 7.331 L pH (Temp corrected) Arterial Blood 28.9 L pCO2 (Temp correct) Arterial Blood 76.4 L pO2 (Temp corrected) Arterial Blood 14.9 L HCO3 Arterial Blood -9.8 L Base Excess Arterial Blood 92.2 L Oxygen Saturatio n Jaiden Test ACCEPTAB Arterial Blood Right Radial Gas Puncture Site Arterial 0.2 Blood Carboxyhem oglobin Arterial Blood 0.3 Methemoglobin Blood Gas A-a O2 247.6 H Differential Oxyhemoglobin 91.7 L Percent Blood Gas 37.0 Temperature Blood Gas 20.0 Respiration Rate Blood Gas Actual 30 Respiration Rate Blood Gas VENT - AC Modality FiO2 50.0 Blood Gas Tidal 500.0 Volume Blood Gas Low 5.0 PEEP Setting Blood Gas TM Notified Whom Blood Gas 01/24/2019 8:39: Notified Time 22 AM Bedside Glucose 198 210 Lab Scanned REFERENCE LAB Report Medications Medication Current Medications Vancomycin HCl (Vanco Iv Per Pharmacy) VANCOMYCIN PER PHARMACY PER PROTOCOL XX ; Start 01/13/19 at 02:00 IV Flush (NS 3 ml) 3 ml PER PROTOCOL IV ; Start 01/13/19 at 02:00 Acetaminophen (Tylenol Tab) 650 mg Q6H PRN PO .PAIN 1-3 OR TEMP Last administered on 01/18/19 08:28; Admin Dose 650 MG; Start 01/13/19 at 02:00 Acetaminophen/ Hydrocodone Bitart ([place] (5/325)) 1 tab Q6H PRN PO .PAIN 4-6 Last administered on 01/15/19 13:40; Admin Dose 1 TAB; Start 01/13/19 at 02:00 Atorvastatin Calcium (Lipitor) 40 mg DAILY@21 PO Last administered on 01/23/19 20:28; Admin Dose 40 MG; Start 01/13/19 at 21:00 Folic Acid (Folic Acid) 1 mg DAILY PO Last administered on 01/24/19 08:51; Admin Dose 1 MG; Start 01/13/19 at 09:00 Insulin Glargine (Lantus) 20 units QHS SC Last administered on 01/14/19 22:04; Admin Dose 20 UNITS; Start 01/13/19 at 21:00; Status Hold Aspirin (Aspirin) 81 mg DAILY PO Last administered on 01/24/19 08:51; Admin D ose 81 MG; Start 01/13/19 at 11:00 Miscellaneous Information 1 ea NOTE XX ; Start 01/13/19 at 15:30 Glucose (Glutose) 15 gm Q15M PRN PO DECREASED GLUCOSE; Start 01/13/19 at 15:30 Glucose (Glutose) 22.5 gm Q15M PRN PO DECREASED GLUCOSE; Start 01/13/19 at 15:30 Dextrose (D50w Syringe) 25 ml Q15M PRN IV DECREASED GLUCOSE; Start 01/13/19 at 15:30 Dextrose (D50w Syringe) 50 ml Q15M PRN IV DECREASED GLUCOSE; Start 01/13/19 at 15:30 Glucagon (Glucagen) 1 mg Q15M PRN IM DECREASED GLUCOSE; Start 01/13/19 at 15:30 Glucose (Glutose) 15 gm Q15M PRN BUCCAL DECREASED GLUCOSE; Start 01/13/19 at 15:30 Epoetin Cam-epbx (Retacrit (Esrd)) 4,000 unit TuThSa@1700 SC Last administered on 01/21/19at 17:34; Admin Dose 4,000 UNIT; Start 01/14/19 at 17:00 Levalbuterol (Xopenex Neb) 1.25 mg Q4H RESP THERAPY PRN HHN dyspnea; Start 01/14/19 at 19:00 Ipratropium [place] (Atrovent Hfa) 4 puff Q6H RESP THERAPY INH Last administered on 01/24/19 08:58; Admin Dose 4 PUFF; Start 01/15/19 at 20:00 Famotidine (Pepcid Iv) 20 mg Q24H IV Last administered on 01/24/19at 05:38; Admin Dose 20 MG; Start 01/16/19 at 06:00 Vasopressin 60 unit/Dextrose 60 ml @ 1.2 mls/hr Q12H IV Last administered on 01/24/19at 12:06; Admin Dose 1.2 MLS/HR; Start 01/16/19 at 02:30 Caspofungin 35 mg/ Sodium Chloride 250 ml @ 250 mls/hr Q24H IVPB Last administered on 01/23/19 15:41; Admin Dose 250 MLS/HR; Start 01/17/19 at 15:00 Docusate Sodium (Colace Liquid Cup) 100 mg BID NGT Last administered on 01/24/19at 09:11; Admin Dose 100 MG; Start 01/17/19 at 21:00 Collagenase (Santyl) 1 applic BID TOP Last administered on 6/11/19at 09:01; Admin Dose 1 APPLIC; Start 01/17/19 at 21:00 Albumin Human 100 ml @ 100 mls/hr DURING DIALYSIS PRN IV BLOOD PRESSURE SUPPORT Last administered on 01/20/19 23:33; Admin Dose 100 MLS/HR; Start 01/18/19 at 11:30 Lactulose (Enulose) 20 gm BID PO Last administered on 01/24/19 08:51; Admin Dose 20 GM; Start 01/19/19 at 21:00 Metoclopramide HCl (Reglan) 5 mg Q6 IV Last administered on 01/24/19 12:09; Admin Dose 5 MG; Start 01/19/19 at 20:00 Heparin Sodium (Porcine) (Heparin (5000 Units/1ml)) 5,000 unit BID SC Last administered on 01/24/19 08:59; Admin Dose 5,000 UNIT; Start 01/21/19 at 09:00 Vancomycin HCl 1.25 gm/Sodium Chloride 250 ml @ 83.333 mls/ hr Q96H IVPB Last administered on 01/21/19 17:32; Admin Dose 83.333 MLS/HR; Start 01/21/19 at 18:00 Amikacin Sulfate (Amikacin Iv Per Pharmacy) AMIKACIN PER PHARMACY NOTE XX ; Start 01/21/19 at 11:30 Metronidazole 100 ml @ 100 mls/hr Q8 IVPB Last administered on 01/24/19 13:29; Admin Dose 100 MLS/HR; Start 01/21/19 at 14:00 Amikacin Sulfate 375 mg/Sodium Chloride 101.5 ml @ 101.5 mls/ hr AFTER DIALYSIS IVPB ; Start 01/22/19 at 09:00 Norepinephrine 32 mg/Dextrose 250 ml @ 0.47 mls/hr TITRATE IV Last administered on 01/23/19 10:17; Admin Dose 6.09 MLS/HR; Start 01/23/19 at 09:30 Phenylephrine HCl 80 mg/Dextrose 250 ml @ 18.75 mls/ hr TITRATE IV Last administered on 01/24/19 13:27; Admin Dose 56.25 MLS/HR; Start 01/23/19 at 09: 30 Ferrous Sulfate (Feosol Liquid Cup) 300 mg BID NGT Last administered on 01/24/19 08:51; Admin Dose 300 MG; Start 01/23/19 at 09:30 Bisacodyl (Dulcolax Supp) 10 mg DAILY PRN SC CONSTIPATION; Start 01/23/19 at 11:30 Docusate Sodium (Colace Liquid Cup) 100 mg Q12H PRN NGT CONSTIPATION; Start 06/03 at 11:30 Diagnostic Test (Pha) (Accu-Chek) 1 ea 02 XX Last administered on 01/24/19at 01:19; Admin Dose 1 EA; Start 01/24/19 at 02:00 Insulin Aspart (Novolog Insulin Pen) NOVOLOG *MILD* ALGORI... Q4 SC Last administered on 01/24/19at 12:19; Admin Dose 2 UNIT; Start 01/23/19 at 13:00 Sodium Bicarbonate 50 meq/Dextrose 1,000 ml @ 40 mls/hr Q24H IV ; Start 01/24/19 at 13:00 Hydrocortisone (Solu-Cortef) 100 mg Q8 IV Last administered on 01/24/19at 13:29; Admin Dose 100 MG; Start 01/24/19 at 13:00 Albumin Human 100 ml @ 100 mls/hr Q8H IV Last administered on 01/24/19at 13:31; Admin Dose 100 MLS/HR; Start 01/24/19 at 13:00; Stop 01/25/19 at 05:59 EDELMIRA WILSON Jan 24, 2019 14:27
[2019-01-24] MEDS ORDERED: LORAZEPAM 2 MG INJ IV PRN (15:00)
--- NOTE | 2019-01-24 15:45 | RADRPT ---
Echocardiogram Report Patient Name: ROGER PEPPERPatient ID: [id number] : 5 (73y 7m)Study Date: 01/24/2019 10:22:39 AM Gender: MAccession #: [id number] Tech: CT Location: I Ref.Physician: WILFRED WREN Height(Cm): BSA: Weight(Kg): Quality: GoodOrder Physician: WILFRED WREN Account #: Procedures: Echocardiographic Report: Transthoracic echocardiogram examination. Indications: eval LVEF, PA pressure and TR, pericardial effusion and IVC. Measurements: Doppler Measurement Value Normal Range TR Peak Vinod 3.2 [ 100.0 - 280.0 ] cm/sec TR Peak PG 40.0 mmHg RVSP 55.0 [ 10.0 - 36.0 ] mmHg RA Pressure 15.0 mmHg Findings: Left Ventricle: Normal left ventricular systolic function. The left ventricular ejection fraction is visually estimated at 65 %. Tricuspid Valve: Normal appearance of the tricuspid valve. The estimated Peak RVSP is 55 mmHg. There is mild tricuspid regurgitation. Pericardium: Normal pericardium with no significant pericardial effusion. IVC: Dilated inferior vena cava without respiratory collapse, however, patient on ventilator. Conclusions: Normal left ventricular systolic function. The left ventricular ejection fraction is visually estimated at 65 %. Normal appearance of the tricuspid valve. The estimated Peak RVSP is 55 mmHg. There is mild tricuspid regurgitation. Normal pericardium with no significant pericardial effusion. Electronically Signed By: Wilfred Wren 2019-01-24 15:45:18 PDT
[2019-01-24] MEDS ORDERED: morphine (DRIP) 100 MG/100 ML 100 ML IV SCH (16:00)
--- NOTE | 2019-01-24 16:17 | CONS ---
Assessment/Plan Assessment/Plan Hospital Course (Demo Recall) Severe shock, likely secondary to sepsis Vent dependent respiratory failure Severe hypotension on IV pressors New onset atrial fibrillation-paroxysmal Preserved left ventricular ejection fraction Minimally elevated troponin CAD with history of CABG End-stage renal disease on hemodialysis Diabetes Hypertension Dyslipidemia Patient with worsening hemodynamic status. Repeat echocardiogram done today with preserved left ventricular ejection fraction, no evidence of pericardial effusion. Severe hypotension, shock likely secondary to sepsis Titrate IV pressors to maintain SBP greater than 90 and/or map above 60. Vent management as per pulmonary Would hold all patient's antihypertensives Fluid management via hemodialysis as per nephrology Antibiotics as per infectious disease Continue aspirin and statin therapy if no contraindication Family deciding regarding plan of care and if comfort measures. Critical status discussed with multiple family members at bedside. Consultation Date/Type/Reason Admit Date/Time January 13, 2019 at 00:07 Initial Consult Date 01/15/19 Type of Consult Cardiology Date/Time of Note DATE: 01/24/19 TIME: 16:14 24 HR Interval Summary Free Text/Dictation Patient with worsening overall status and discussion with nursing staff, on 3 pressors. Family deciding regarding comfort measures Exam/Review of Systems Vital Signs Vitals Vital Signs Date Temp Pulse Resp B/P (MAP) Pulse Ox O2 O2 Flow FiO2 Time Delivery Rate 01/24/19 104 22 97/37 (57) 92 15:15 01/24/19 98.7 Mechanical 12:00 Ventilator 01/24/19 50 12:00 Intake and Output 01/23/19 01/23/19 01/24/19 1515:00 23:00 07:00 IntakeIntake Total 512.38 ml 994.16 ml 675.98 ml OutputOutput Total 0 ml 0 ml 0 ml BalanceBalance 512.38 ml 994.16 ml 675.98 ml Exam Exam Intubated, family bedside, appears mottled Head: normocephalic ENMT: intubated Respiratory: other (Coarse breath sounds bilaterally, no wheezing) Cardiovascular: irregular rhythm (S1-S2 heard) Gastrointestinal: other (Distended abdomen, minimal bowel sounds, no grimacing with palpation) Extremities: edema Neurological: other (No response to verbal stimuli) Skin: other (Numerous areas of ecchymosis) Labs Result Diagram: 01/24/19 0638 01/24/19 0517 Results 24hrs Laboratory Tests Test 01/23/19 17:28 01/23/19 20:28 01/23/19 21:45 01/24/19 01:14 Bedside Glucose 155 161 183 Blood Gas Blood arterial Specimen Source Arterial Blood 01/23/2019 9:52: Date Drawn 00 PM Arterial Blood 7.351 pH (Temp corrected) Arterial Blood 23.9 L pCO2 (Temp correct) Arterial Blood 77.4 L pO2 (Temp corrected) Arterial Blood 12.9 L HCO3 Arterial Blood -11.2 L Base Excess Arterial Blood 92.6 L Oxygen Saturatio n Jaiden Test ACCEPTAB Arterial Blood Right Radial Gas Puncture Site Arterial 0.2 Blood Carboxyhem oglobin Arterial Blood 0.3 Methemoglobin Blood Gas A-a O2 216.3 H Differential Oxyhemoglobin 92.1 L Percent Blood Gas 37.0 Temperature Blood Gas 20.0 Respiration Rate Blood Gas Actual 31 Respiration Rate Blood Gas VENT - AC Modality FiO2 45.0 Blood Gas Tidal 500.0 Volume Blood Gas Low 5.0 PEEP Setting Blood Gas 21.0 Inspiratory Pressure Blood Gas AA Notified Whom Blood Gas 01/23/2019 10:13 Notified Time :00 PM Test 01/24/19 05:17 01/24/19 05:18 01/24/19 05:41 01/24/19 06:38 Sodium Level 137 Potassium Level 5.2 H Chloride Level 107 Carbon Dioxide 16 L Level Anion Gap 14 H Blood Urea 34 H Nitrogen Creatinine 4.81 H Est Glomerular Filtrat Rate mL/min Glucose Level 164 Calcium Level 6.9 L Phosphorus Level 6.3 H Magnesium Level 2.2 Ammonia 24 Lactic Acid 5.3 *H Level Bedside Glucose 189 White Blood 26.1 #H Count Red Blood Count 2.69 L Hemoglobin 8.6 L Hematocrit 28.2 L Mean Corpuscular 104.8 H Volume Mean Corpuscular 32.0 Hemoglobin Mean Corpuscular 30.5 L Hemoglobin Joie nt Red Cell 18.4 H Distribution Width Platelet Count 104 L Mean Platelet 13.1 H Volume Immature 1.800 H Granulocytes % Neutrophils % Segmented 78 H Neutrophils % (Manual) Band Neutrophils 5 H % (Manual) Lymphocytes % Lymphocytes % 11 L (Manual) Monocytes % Monocytes % 6 (Manual) Eosinophils % Basophils % Nucleated Red 0.4 H Blood Cells % Immature 0.460 H Granulocytes # Neutrophils # Neutrophils # 20.7 H (Manual) Band Neutrophils 1.3 H # Lymphocytes 2.8 (Manual) Lymphocytes # Monocytes # Monocytes # 1.5 H (Manual) Eosinophils # Basophils # Nucleated Red Blood Cells # Platelet NORMAL Estimate Polychromasia 3+ Poikilocytosis 2+ Anisocytosis 2+ Macrocytosis 1+ Test 01/24/19 07:40 01/24/19 08:28 01/24/19 09:35 01/24/19 12:13 Blood Gas Blood arterial Specimen Source Arterial Blood 01/24/2019 8:25: Date Drawn 46 AM Arterial Blood 7.331 L pH (Temp corrected) Arterial Blood 28.9 L pCO2 (Temp correct) Arterial Blood 76.4 L pO2 (Temp corrected) Arterial Blood 14.9 L HCO3 Arterial Blood -9.8 L Base Excess Arterial Blood 92.2 L Oxygen Saturatio n Jaiden Test ACCEPTAB Arterial Blood Right Radial Gas Puncture Site Arterial 0.2 Blood Carboxyhem oglobin Arterial Blood 0.3 Methemoglobin Blood Gas A-a O2 247.6 H Differential Oxyhemoglobin 91.7 L Percent Blood Gas 37.0 Temperature Blood Gas 20.0 Respiration Rate Blood Gas Actual 30 Respiration Rate Blood Gas VENT - AC Modality FiO2 50.0 Blood Gas Tidal 500.0 Volume Blood Gas Low 5.0 PEEP Setting Blood Gas TM Notified Whom Blood Gas 01/24/2019 8:39: Notified Time 22 AM Bedside Glucose 198 210 Lab Scanned REFERENCE LAB Report Medications Medications Current Medications Morphine Sulfate/ Sodium Chloride 100 ml @ 1 mls/hr TITRATE IV Last administered on 01/24/19at 15:30; Admin Dose 1 MLS/HR; Start 01/24/19 at 16:00 Wilfred Decker DO Jan 24, 2019 16:17
[2019-01-24] MEDS ORDERED: ATROPINE 1% 3.5 GM OPH OINT BOTH EYES ONE (16:30)
--- NOTE | 2019-01-24 16:52 | RADRPT ---
Vent Rate: 114 bpm RR Interval: 528 msec DC Interval: 129 msec QRS Duration: 89 msec QT Interval: 394 msec QTC Interval: 542 msec P-R-T [place]: 188 - 34 - 205 degrees Sinus or ectopic atrial tachycardia...P axis (-45,135), rate> 99 Nonspecific repol abnormality, diffuse leads...ST dep, T flat/neg, ant/lat/inf Prolonged QT interval...QTc >500mS Lead(s) V1 were not used for morphology analysis Electronically Signed By: Wilfred Decker
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
== END 2019-01-24 16:25 | disposition expired | DRG 870 ==
LOC: E/R 22:33 → TEL 01-13 00:07 → ICU 01-15 16:42
PROVIDERS: ADMIT Family Medicine; ATTEND Internal Medicine
PROC: 5A1D70Z Performance of Urinary Filtration, Intermittent, Less than 6 Hours Per Day (ICD-10-PCS; principal; 2019-01-14)
PROC: 02H633Z Insertion of Infusion Device into Right Atrium, Percutaneous Approach (ICD-10-PCS; 2019-01-15)
PROC: 0BH17EZ Insertion of Endotracheal Airway into Trachea, Via Natural or Artificial Opening (ICD-10-PCS; 2019-01-15)
PROC: 5A1955Z Respiratory Ventilation, Greater than 96 Consecutive Hours (ICD-10-PCS; 2019-01-15)
DX: A41.9 Sepsis, unspecified organism (principal); J18.9 Pneumonia, unspecified organism; J96.01 Acute respiratory failure with hypoxia; J96.02 Acute respiratory failure with hypercapnia; I21.A1 Myocardial infarction type 2; N18.6 End stage renal disease; G92 Toxic encephalopathy; R65.21 Severe sepsis with septic shock; I13.2 Hypertensive heart and chronic kidney disease with heart failure and with stage 5 chronic kidney disease, or end stage renal disease; D63.1 Anemia in chronic kidney disease; E87.6 Hypokalemia; E11.22 Type 2 diabetes mellitus with diabetic chronic kidney disease; E78.5 Hyperlipidemia, unspecified; I50.9 Heart failure, unspecified; I48.0 Paroxysmal atrial fibrillation; I25.10 Atherosclerotic heart disease of native coronary artery without angina pectoris; K74.60 Unspecified cirrhosis of liver; K80.20 Calculus of gallbladder without cholecystitis without obstruction; K52.9 Noninfective gastroenteritis and colitis, unspecified; M54.42 Lumbago with sciatica, left side; Z95.1 Presence of aortocoronary bypass graft; Z99.2 Dependence on renal dialysis; Z51.5 Encounter for palliative care; Z91.81 History of falling; Z87.891 Personal history of nicotine dependence; Z79.4 Long term (current) use of insulin; Z79.82 Long term (current) use of aspirin
CPT/HCPCS: 31500; 36415; 36600; 70450; 71045; 71250; 74018; 74176; 76705; 80048; 80053; 80061; 80076; 80202; 82140; 82306; 82533; 82550; 82553; 82803; 82962; 83036; 83605; 83690; 83735; 84100; 84145; 84443; 84484; 85025; 85610; 85730; 86038; 86255; 86480; 86635; 86704; 86706; 86709; 86803; 87070; 87081; 87340; 89220; 90935; 93005; 93306; 93308; 94002; 94003; 94640; 94664; 94667; 94668; 94770; J0278; J0282; J0456; J1644; J1720; J1815; J1940; J2060; J2185; J2270; J2370; J2543; J2765; J3010; J3370; J3480; J7040; J7050; J7060; J7070; P9047; Q5105